=== PATIENT | male | born 1960 | race Caucasian/White ===

== ENCOUNTER 2020-06-07 08:06 | Outpatient (REF) | payer MEDICARE, MEDICAID, SELFPAY ==
[2020-06-07 12:19] LABS: Alanine Aminotransferase 25 U/L (0-40); Albumin Level 4.3 g/dL (3.5-5.0); Alkaline Phosphatase 77 U/L (39-117); Anion Gap 13 (12-20); Aspartate Amino Transferase 22 U/L (5-37); Bilirubin Total 0.3 mg/dL (0.0-1.0); Blood Urea Nitrogen 30 mg/dL (9-16); Calcium 9.1 mg/dL (8.4-10.2); Carbon Dioxide 29 mmol/L (22-29); Chloride 103 mmol/L (96-108); Cholesterol 169 mg/dL; Estimated Glomerular Filt Rate 54; Glucose Fasting 141 mg/dL (60-99); HDL Cholesterol 86 mg/dL; LDL Cholesterol Calculated 71 mg/dl; Potassium 4.9 mmol/l (3.3-5.1); Sodium 140 mmol/L (135-145); Thyroid Stimulating Hormone 1.61 mIU/mL (0.32-4.0); Total Protein 6.8 g/dL (6.5-8.0); Triglycerides 63 mg/dL
[2020-06-07 12:46] LABS: Creatinine Urine 109.01 mg/dL; Microalbum/Creatinine Ratio Ur 162.3 ug/mg cr
[2020-06-07 12:46] LABS: T4 Thyroxine 8.2 ug/dL (4.5-12.0)
[2020-06-07 12:59] LABS: Folate 17.7 ng/mL (> or = 4.0); Vitamin B12 495 pg/mL (200-900)
== END 2020-06-07 08:07 | disposition home or self-care (01) ==
LOC: HO.HMGCLDS 08:06
PROVIDERS: PCP Internal Medicine; Visit Provider Internal Medicine
DX: E11.65 Type 2 diabetes mellitus with hyperglycemia (principal); E11.40 Type 2 diabetes mellitus with diabetic neuropathy, unspecified; E11.22 Type 2 diabetes mellitus with diabetic chronic kidney disease; I12.9 Hypertensive chronic kidney disease with stage 1 through stage 4 chronic kidney disease, or unspecified chronic kidney disease; N18.30 Chronic kidney disease, stage 3 unspecified; I25.10 Atherosclerotic heart disease of native coronary artery without angina pectoris; J44.9 Chronic obstructive pulmonary disease, unspecified; E78.00 Pure hypercholesterolemia, unspecified
CPT/HCPCS: 36415; 80053; 80061; 82043; 82607; 82746; 84436; 84443

== ENCOUNTER 2020-08-04 06:30 | Day surgery (SDC) | payer MEDICARE, MEDICAID, SELFPAY ==
--- NOTE | 2020-08-03 09:40 | HO.ANESPROP2 ---
Documented by User: Melinda Leach 08/03/20 11:11 HPI - Anesthesia Eval Consult details Narrative: 60yo M for Colonoscopy PMFSH Past Medical History Medical History Ankle fracture Carpal tunnel syndrome Cholelithiasis Chronic kidney disease (CKD) stage G2/A3, mildly decreased glomerular filtration rate (GFR) between 60-89 mL/min/1.73 square meter and albuminuria creatinine ratio greater than 300 mg/g COPD (chronic obstructive pulmonary disease) Coronary artery disease Diabetes mellitus type 1 Diabetic neuropathy Eczema Hx of fracture of femur Hypercholesterolemia Hypertension Family History Family History Father Hypertension Stroke CVD (cerebrovascular disease) Mother Hypertension CVD (cerebrovascular disease) Diabetes Sister HX: breast cancer Paternal Grandfather Colon cancer Surgical History Surgical History H/O umbilical hernia repair History of carpal tunnel release History of cholecystectomy History of elbow surgery Hx of appendectomy Hx of colonoscopy Hx of eye surgery Social History Social History Alcohol intake: former Smoking Status: Former smoker Second Hand Smoke Exposure: No Use of substances other than those prescribed or required for medical reasons: No Substance Use Type: Marijuana Advance Directives: No Advance Directives Information Provided: Yes Advance Directives on File: No Meds Allergies Allergy/AdvReac Type Severity Reaction Status Date / Time No Known Allergies Allergy Unverified 07/31/20 17:53 Home Medications Medication Instructions Recorded Confirmed Type albuterol sulfate 90 mcg/actuation 2 puff INHALATION Q4-6H PRN 06/14/20 07/27/20 History aerosol inhaler aspirin 81 mg tablet,delayed 81 mg PO DAILY 06/14/20 07/27/20 History release carbamazepine 200 mg tablet 200 mg PO DAILY tab 06/14/20 07/27/20 History gabapentin 100 mg capsule 100 mg PO DAILY 06/14/20 07/27/20 History metoclopramide HCl 10 mg tablet 10 mg PO Q6H PRN 06/14/20 07/27/20 History rosuvastatin 40 mg tablet 40 mg PO DAILY 06/14/20 07/27/20 History sildenafil 100 mg tablet 100 mg PO DAILY PRN 06/14/20 07/27/20 History tiotropium bromide 2.5 2 puff INHALATION DAILY 06/14/20 07/27/20 History mcg/actuation mist for inhalation docusate sodium 100 mg PO DAILY PRN 07/27/20 07/27/20 History fluticasone furoate-vilanterol INHALATION 07/27/20 07/27/20 History [Alana Solista] Exam Exam Date and Time: August 03, 2020 0940 Pertinent Lab Results Pertinent Lab Results: Laboratory Tests 01/27/20 06/07/20 07:44 08:20 WBC 7.3 Hgb 15.2 Hct 45.1 Plt Count 233 Sodium 140 Potassium 4.9 Chloride 103 Carbon Dioxide 29 BUN 30 H Creatinine 1.34 Assessment and Plan Assessment Anesthesia Assessment: Chart Reviewed Documented by User: Torsten Bauer 08/04/20 07:37 REPLACED BY [facility] Past Medical History Medical History Ankle fracture Carpal tunnel syndrome Cholelithiasis Chronic kidney disease (CKD) stage G2/A3, mildly decreased glomerular filtration rate (GFR) between 60-89 mL/min/1.73 square meter and albuminuria creatinine ratio greater than 300 mg/g COPD (chronic obstructive pulmonary disease) Coronary artery disease Diabetes mellitus type 1 Diabetic neuropathy Eczema Hx of fracture of femur Hypercholesterolemia Hypertension Family History Family History Father Hypertension Stroke CVD (cerebrovascular disease) Mother Hypertension CVD (cerebrovascular disease) Diabetes Sister HX: breast cancer Paternal Grandfather Colon cancer Surgical History Surgical History H/O umbilical hernia repair History of carpal tunnel release History of cholecystectomy History of elbow surgery Hx of appendectomy Hx of colonoscopy Hx of eye surgery Social History Social History Alcohol intake: former Smoking Status: Former smoker Second Hand Smoke Exposure: No Use of substances other than those prescribed or required for medical reasons: No Substance Use Type: Marijuana Advance Directives: No Advance Directives Information Provided: Yes Advance Directives on File: No Meds Allergies Allergy/AdvReac Type Severity Reaction Status Date / Time No Known Allergies Allergy Unverified 07/31/20 17:53 Home Medications Medication Instructions Recorded Confirmed Type albuterol sulfate 90 mcg/actuation 2 puff INHALATION Q4-6H PRN 06/14/20 07/27/20 History aerosol inhaler aspirin 81 mg tablet,delayed 81 mg PO DAILY 06/14/20 07/27/20 History release carbamazepine 200 mg tablet 200 mg PO DAILY tab 06/14/20 07/27/20 History gabapentin 100 mg capsule 100 mg PO DAILY 06/14/20 07/27/20 History metoclopramide HCl 10 mg tablet 10 mg PO Q6H PRN 06/14/20 07/27/20 History rosuvastatin 40 mg tablet 40 mg PO DAILY 06/14/20 07/27/20 History sildenafil 100 mg tablet 100 mg PO DAILY PRN 06/14/20 07/27/20 History tiotropium bromide 2.5 2 puff INHALATION DAILY 06/14/20 07/27/20 History mcg/actuation mist for inhalation docusate sodium 100 mg PO DAILY PRN 07/27/20 07/27/20 History fluticasone furoate-vilanterol INHALATION 07/27/20 07/27/20 History [Breo Ellipta] Exam Airway Mallampati Class: II TM Dist: >3cm Neck ROM: Full Loose/Missing/Broken Teeth: No Heart: [id number] Lungs: cta b/l Assessment and Plan Assessment Anesthesia Assessment: Anesthesia Plan Discussed, PAT Visit and Chart Reviewed Final Anesthetic Review NPO: Yes ASA Class: III Final Preanesthetic Review: No Changes in Pt Med Stat, Meds/Allgs Chart Reviewed, Consent Obtained/Reviewed and Anes Risks/Benef Reviewed Patient Risk: Intermediate Procedure Risk: Low Assessment/Block/Sedation in SS: Assess/Block/Sedation-SS Anesthetic Plan Anesthetic Plan: MAC: Disposition: Standard PACU
[2020-08-03 10:00] VITALS: BMI 23.2
[2020-08-04 07:05] LABS: Glucose, Whole Blood 153 mg/dL (60-115)
[2020-08-04] MEDS: Lactated Ringers 1,000 ML 100 ML IVCONT (07:08)
[2020-08-04 08:27] VITALS: BP 115/54; PULSE 85; RESP 12; TEMP 36.5; O2SAT 99
--- NOTE | 2020-08-04 08:31 | PM.OP ---
Brief Operative Note Date of Service: 08/04/20 Pre-op diagnosis: Screening Post-op diagnosis: other (Screening) Procedure: Diverticulosis, Internal hemorrhoids Surgeon: Dylan Devries Anesthesia: MAC Estimated blood loss (mL): 0 Pathology: none sent Condition: stable Disposition: PACU
[2020-08-04 08:42] VITALS: BP 115/55; PULSE 76; RESP 16; TEMP 36.5; O2SAT 98
--- NOTE | 2020-08-04 08:45 | OP_ITS ---
SURGEON: Dylan Devries MD INDICATIONS: The patient presents for evaluation of colorectal cancer screening. Full consent has been obtained from him for this, including risks of bleeding and perforation. PREOPERATIVE DIAGNOSIS: Colorectal cancer screening. POSTOPERATIVE DIAGNOSIS: PROCEDURE PERFORMED: Colonoscopy to the cecum. ESTIMATED BLOOD LOSS: COMPLICATIONS: ANESTHESIA: Monitored anesthesia care. ASSISTANTS: SPECIMENS: POSTOPERATIVE DIAGNOSES: Colorectal cancer screening, sigmoid diverticulosis and internal hemorrhoids. DESCRIPTION OF PROCEDURE: The patient was placed in the left lateral decubitus position. The digital rectal exam revealed no abnormalities. The Olympus video pediatric colonoscope was entered into the rectum and advanced easily to the cecum. Once in the cecum, I did identify normal-appearing cecal pouch with appendiceal orifice and a normal-appearing ileocecal valve. The entire cecum was well visualized and appeared normal. There was transillumination of light deep in the right lower quadrant. The scope was slowly withdrawn assessing all mucosal surfaces carefully. Preparation was excellent throughout most of the colon, although in the sigmoid colon, there was some residual stool, which was irrigated and suctioned away as best as possible. I did not visualize any sign of polyps, colitis, nor angiodysplasia. There was a mild amount of sigmoid diverticulosis. In the rectum, scope was retroflexed visualizing prominent internal hemorrhoids, but no other pathology. The rectal mucosa appeared normal. The scope was straightened out and withdrawn from the patient. He tolerated the procedure well and was returned to the recovery area in stable condition. IMPRESSION: 1. Sigmoid diverticulosis. 2. Internal hemorrhoids. PLAN: Given the patient's negative colonoscopy and no family history of colon cancer, I would recommend a followup colonoscopy in 10 years for further screening. He will otherwise see me on a p.r.n. basis. MD ROBBI Braswell/HALIMA / [id number]
== END 2020-08-04 09:24 | disposition home or self-care (01) ==
PROVIDERS: PCP Internal Medicine; Visit Provider Internal Medicine
PROC: 0DJD8ZZ Inspection of Lower Intestinal Tract, Via Natural or Artificial Opening Endoscopic (ICD-10-PCS; CPT 45378; principal; 2020-08-04 07:30)
DX: Z12.11 Encounter for screening for malignant neoplasm of colon (principal); K57.30 Diverticulosis of large intestine without perforation or abscess without bleeding; K64.8 Other hemorrhoids; E10.22 Type 1 diabetes mellitus with diabetic chronic kidney disease; E10.40 Type 1 diabetes mellitus with diabetic neuropathy, unspecified; I12.9 Hypertensive chronic kidney disease with stage 1 through stage 4 chronic kidney disease, or unspecified chronic kidney disease; N18.2 Chronic kidney disease, stage 2 (mild); Z90.49 Acquired absence of other specified parts of digestive tract; Z87.891 Personal history of nicotine dependence; J44.9 Chronic obstructive pulmonary disease, unspecified; Z79.4 Long term (current) use of insulin; Z96.41 Presence of insulin pump (external) (internal)
CPT/HCPCS: G0121; 82947

== ENCOUNTER → 2020-08-17 09:39 | Outpatient (BNVA) | payer MEDICARE, MEDICAID, SELFPAY | PROVIDERS: PCP Internal Medicine; Visit Provider Internal Medicine | DX: J43.9 Emphysema, unspecified (principal) | CPT/HCPCS: 99212 ==

== ENCOUNTER 2020-09-15 11:34 | Outpatient (REF) | payer MEDICARE, MEDICAID, SELFPAY ==
[2020-09-15 14:19] LABS: Estimated Average Glucose 171 mg/dL; Hemoglobin A1c % 7.6 %
== END 2020-09-15 11:35 | disposition home or self-care (01) ==
LOC: HO.HMGCLR 11:34
PROVIDERS: PCP Internal Medicine; Visit Provider Pediatrics
DX: E10.65 Type 1 diabetes mellitus with hyperglycemia (principal)
CPT/HCPCS: 36415; 83036

== ENCOUNTER 2020-12-14 10:44 | Outpatient (REF) | payer MEDICARE, MEDICAID, SELFPAY ==
[2020-12-14 12:51] LABS: Estimated Average Glucose 160 mg/dL; Hemoglobin A1c % 7.2 %
== END 2020-12-14 10:45 | disposition home or self-care (01) ==
LOC: HO.LABR 10:44
PROVIDERS: Absent Provider Pediatrics; PCP Internal Medicine; Visit Provider Internal Medicine
DX: E10.65 Type 1 diabetes mellitus with hyperglycemia (principal); J43.9 Emphysema, unspecified; Z79.899 Other long term (current) drug therapy
CPT/HCPCS: 36415; 83036; 99212

== ENCOUNTER 2020-12-31 11:17 | Outpatient (REF) | payer MEDICARE, MEDICAID, SELFPAY ==
--- NOTE | ~2020-12-31 | US_ITS ---
EXAMINATION: US PELVIS LIMITED (BLADDER) CLINICAL INFORMATION: Urinary incontinence. COMPARISON: None TECHNIQUE: Real-time imaging of the bladder. FINDINGS: BLADDER: Well distended and normal. Bilateral ureteral jets are demonstrated. Prevoid bladder volume is 400 mL. Postvoid bladder volume is 170 mL. The prostate gland is enlarged and measures 4.8 x 3.8 x 4.1 cm, volume 39 mL. There is a heterogeneous partially solid partially cystic area in the prostate gland measuring 2.4 x 2.5 x 2.9 cm. US/US bladder IMPRESSION: Large 170 mL post void bladder residual. Enlarged prostate gland with question focal 2.4 x 2.5 x 2.9 cm heterogeneous lesion. Correlation with PSA level recommended.
== END 2020-12-31 11:18 | disposition home or self-care (01) ==
LOC: HO.HMGCX 11:17
PROVIDERS: Visit Provider Internal Medicine
DX: N40.1 Benign prostatic hyperplasia with lower urinary tract symptoms (principal); N39.498 Other specified urinary incontinence
CPT/HCPCS: 76857

== ENCOUNTER → 2021-03-08 13:25 | Outpatient (BNVA) | payer MEDICARE, MEDICAID, SELFPAY | PROVIDERS: PCP Internal Medicine; Visit Provider Urology | DX: N40.0 Benign prostatic hyperplasia without lower urinary tract symptoms (principal); N52.9 Male erectile dysfunction, unspecified; R39.12 Poor urinary stream | CPT/HCPCS: 51798; 99202 ==

== ENCOUNTER 2021-03-14 08:18 | Outpatient (REF) | payer MEDICARE, MEDICAID, SELFPAY ==
[2021-03-14 09:04] LABS: MANUAL DIFF FLAG NO
[2021-03-14 09:11] LABS: Basophils Percent Auto 0.5 % (0-2); Eosinophils Absolute Auto 0.3 X10*3/uL (0.0-0.4); Eosinophils Percent Auto 3.8 % (0-4); Hematocrit 42.5 % (42-52); Hemoglobin 13.9 g/dl (14.0-18.0); Imm Gran Abs Auto 0.03 X10*3/uL (0.00-0.03); Imm Gran Pct Auto 0.4 % (0.0-0.4); Lymphocytes Absolute Auto 2.1 X10*3/uL (1.2-4.9); Lymphocytes Percent Auto 27.2 % (20-40); Mean Corpuscular HGB Conc 32.7 g/dl (31.0-36.0); Mean Corpuscular Hemoglobin 31.4 pg (27.0-33.0); Mean Corpuscular Volume 95.9 fL (80-98); Mean Platelet Volume 9.3 fL (9.4-12.4); Monocytes Absolute Auto 0.8 X10*3/uL (0.1-1.2); Monocytes Percent Auto 10.2 % (2-11); Neutrophils Absolute Auto 4.4 X10*3/uL (2.0-8.3); Neutrophils Percent Auto 57.9 % (45-73); Platelet Count 190 X10*3/uL (160-400); Red Blood Count 4.43 X10*6/uL (4.60-5.80); Red Cell Distribution Width 13.1 % (11.0-16.0); White Blood Count 7.7 X10*3/uL (4.8-10.8)
[2021-03-14 09:29] LABS: Estimated Average Glucose 174 mg/dL; Hemoglobin A1c % 7.7 %
[2021-03-14 09:35] LABS: Alanine Aminotransferase 21 U/L (0-40); Albumin Level 4.1 g/dL (3.5-5.0); Alkaline Phosphatase 72 U/L (39-117); Anion Gap 13 (12-20); Aspartate Amino Transferase 23 U/L (5-37); Bilirubin Total 0.4 mg/dL (0.0-1.0); Blood Urea Nitrogen 21 mg/dL (9-16); Calcium 9.3 mg/dL (8.4-10.2); Carbon Dioxide 29 mmol/L (22-29); Chloride 105 mmol/L (96-108); Cholesterol 153 mg/dL; Estimated Glomerular Filt Rate 57; Glucose Random 127 mg/dL (60-115); HDL Cholesterol 84 mg/dL; LDL Cholesterol Calculated 58 mg/dl; Potassium 4.8 mmol/L (3.3-5.1); Sodium 142 mmol/L (135-145); Total Protein 6.5 g/dL (6.5-8.0); Triglycerides 58 mg/dL
[2021-03-14 09:48] LABS: Free T4 (Free Thyroxine) 1.12 ng/dL (0.71-1.85); Thyroid Stimulating Hormone 0.92 uIU/mL (0.32-4.0)
[2021-03-14 10:15] LABS: Creatinine Urine 138.22 mg/dL; Microalbum/Creatinine Ratio Ur 133.1 ug/mg cr
[2021-03-14 10:25] LABS: Folate 16.7 ng/mL (> or = 4.0); Vitamin B12 499 pg/mL (200-900)
== END 2021-03-14 08:19 | disposition home or self-care (01) ==
LOC: HO.LAB 08:18
PROVIDERS: Absent Provider Pediatrics; PCP Internal Medicine; Visit Provider Internal Medicine
DX: E78.00 Pure hypercholesterolemia, unspecified (principal); I25.10 Atherosclerotic heart disease of native coronary artery without angina pectoris; E10.42 Type 1 diabetes mellitus with diabetic polyneuropathy; E10.65 Type 1 diabetes mellitus with hyperglycemia
CPT/HCPCS: 36415; 80053; 80061; 82043; 82607; 82746; 83036; 84439; 84443; 85025

== ENCOUNTER → 2021-04-21 14:58 | Outpatient (BNVA) | payer MEDICARE, MEDICAID, SELFPAY | PROVIDERS: PCP Internal Medicine; Visit Provider Urology | DX: N40.1 Benign prostatic hyperplasia with lower urinary tract symptoms (principal); R39.14 Feeling of incomplete bladder emptying; R39.12 Poor urinary stream; R33.8 Other retention of urine; E11.42 Type 2 diabetes mellitus with diabetic polyneuropathy | CPT/HCPCS: 52000; 99212 ==

== ENCOUNTER → 2021-05-19 10:52 | Outpatient (BNVA) | payer MEDICARE, MEDICAID, SELFPAY | PROVIDERS: PCP Internal Medicine; Visit Provider Urology | DX: N40.1 Benign prostatic hyperplasia with lower urinary tract symptoms (principal); R39.12 Poor urinary stream; R33.9 Retention of urine, unspecified | CPT/HCPCS: 51798; 99212 ==

== ENCOUNTER 2021-06-14 10:32 | Outpatient (REF) | payer MEDICARE, MEDICAID, SELFPAY ==
[2021-06-14 12:10] LABS: Estimated Average Glucose 163 mg/dL; Hemoglobin A1c % 7.3 %
== END 2021-06-14 10:33 | disposition home or self-care (01) ==
LOC: HO.LABR 10:32
PROVIDERS: Absent Provider Pediatrics; PCP Internal Medicine; Visit Provider Internal Medicine
DX: J43.9 Emphysema, unspecified (principal); E10.65 Type 1 diabetes mellitus with hyperglycemia; E10.42 Type 1 diabetes mellitus with diabetic polyneuropathy; Z79.899 Other long term (current) drug therapy
CPT/HCPCS: 36415; 83036; 99212

== ENCOUNTER 2021-07-19 11:54 | Outpatient (REF) | payer MEDICARE, MEDICAID, SELFPAY ==
[2021-07-19 12:18] LABS: MANUAL DIFF FLAG NO
[2021-07-19 13:13] LABS: Basophils Absolute Auto 0.1 X10*3/uL (0.0-0.2); Basophils Percent Auto 0.7 % (0-2); Eosinophils Absolute Auto 0.2 X10*3/uL (0.0-0.4); Eosinophils Percent Auto 2.7 % (0-4); Hematocrit 40.8 % (42.0-52.0); Hemoglobin 13.5 g/dl (14.0-18.0); Imm Gran Abs Auto 0.02 X10*3/uL (0.00-0.03); Imm Gran Pct Auto 0.3 % (0.0-0.4); Lymphocytes Absolute Auto 2.2 X10*3/uL (1.2-4.9); Lymphocytes Percent Auto 29.4 % (20-40); Mean Corpuscular HGB Conc 33.1 g/dl (31.0-36.0); Mean Corpuscular Hemoglobin 31.3 pg (27.0-33.0); Mean Corpuscular Volume 94.7 fL (80.0-98.0); Mean Platelet Volume 9.2 fL (9.4-12.4); Monocytes Absolute Auto 0.7 X10*3/uL (0.1-1.2); Monocytes Percent Auto 9.9 % (2-11); Neutrophils Absolute Auto 4.3 x10*3/uL (2.0-8.3); Platelet Count 233 X10*3/uL (160-400); Red Blood Count 4.31 X10*6/uL (4.60-5.80); Red Cell Distribution Width 12.9 % (11.0-16.0); White Blood Count 7.5 X10*3/uL (4.8-10.8)
[2021-07-19 13:37] LABS: Alanine Aminotransferase 25 U/L (0-40); Alkaline Phosphatase 73 U/L (39-117); Anion Gap 12 (12-20); Aspartate Amino Transferase 20 U/L (5-37); Bilirubin Total 0.2 mg/dL (0.0-1.0); Blood Urea Nitrogen 26 mg/dL (9-16); Calcium 9.1 mg/dL (8.4-10.2); Carbon Dioxide 30 mmol/L (22-29); Chloride 102 mmol/L (96-108); Cholesterol 151 mg/dL; Estimated Glomerular Filt Rate > 60; Glucose Fasting 98 mg/dL (60-99); HDL Cholesterol 79 mg/dL; LDL Cholesterol Calculated 63 mg/dl; Potassium 4.8 mmol/L (3.3-5.1); Sodium 139 mmol/L (135-145); Total Protein 6.5 g/dL (6.5-8.0); Triglycerides 48 mg/dL
[2021-07-19 13:58] LABS: Prostate Specific Antigen Scr 1.37 ng/mL (<0.05-4.0)
[2021-07-19 14:10] LABS: Creatinine Urine 52.08 mg/dL; Microalbum/Creatinine Ratio Ur 241.9 ug/mg cr
== END 2021-07-19 11:55 | disposition home or self-care (01) ==
LOC: HO.LAB 11:54
PROVIDERS: PCP Internal Medicine; Visit Provider Nurse Practitioner Family
DX: Z12.5 Encounter for screening for malignant neoplasm of prostate (principal); I12.9 Hypertensive chronic kidney disease with stage 1 through stage 4 chronic kidney disease, or unspecified chronic kidney disease; N18.2 Chronic kidney disease, stage 2 (mild); E10.22 Type 1 diabetes mellitus with diabetic chronic kidney disease; E78.00 Pure hypercholesterolemia, unspecified; N40.0 Benign prostatic hyperplasia without lower urinary tract symptoms
CPT/HCPCS: 36415; 80053; 80061; 82043; 84153; 85025

== ENCOUNTER 2021-07-21 14:01 | Outpatient (REF) | payer MEDICARE, MEDICAID, SELFPAY ==
--- NOTE | ~2021-07-21 | CT_ITS ---
EXAMINATION: CT ABDOMEN AND PELVIS WITH CONTRAST CLINICAL INFORMATION: Generalized abdominal pain COMPARISON: Bladder ultrasound December 2020 TECHNIQUE: Multidetector volumetric images were obtained from the superior aspect of the liver through the pubic symphysis following administration 85 mL of Omnipaque 350 intravenous contrast. Sagittal and coronal reformatted images were obtained on the technologist's workstation. Oral contrast: Yes This CT examination was performed using dose optimization techniques as appropriate, variously including the following: *Automated exposure control *Adjustment of mA and/or kV according to patient size (this includes techniques or standardized protocols for targeted exams where dose is matched to indication/reason for exam; i.e. extremities or head) *Use of iterative reconstruction technique DLP: 223 mGy-cm FINDINGS: LUNG BASES: The visualized lung bases are unremarkable. LIVER, GALLBLADDER, AND BILIARY TREE: The liver is normal in size, shape, and attenuation. No focal hepatic lesion or biliary ductal dilatation is present. The gallbladder has been removed. PANCREAS: Unremarkable. SPLEEN: Unremarkable. ADRENAL GLANDS: Unremarkable. KIDNEYS AND URETERS: There is cortical thinning or scarring of the lower pole of the left kidney. There are multiple bilateral renal cysts. Largest measures 1.6 cm in the lower pole of the left kidney. There is a 5 mm stone in the lower pole of the right kidney. There is additional small 1 to 2 mm bilateral renal stones. There is evidence of renal vascular calcification. BLADDER: Unremarkable. GASTROINTESTINAL TRACT: There is evidence of constipation. The small and large bowel are otherwise unremarkable. The appendix is is not identified. ABDOMINAL WALL: No significant hernia is appreciated. LYMPH NODES: Normal. VASCULAR: There is evidence of atherosclerotic disease. PELVIC VISCERA: The prostate gland is enlarged and measures 3.8 x 4.6 cm in AP and transverse dimension. OSSEOUS STRUCTURES: There are degenerative changes of the spine. CT/CT abdomen pelvis w con IMPRESSION: Constipation. Renal stones. Cortical thinning or scarring in the lower pole the left kidney. Bilateral renal cysts. Enlarged prostate gland. Severe atherosclerotic disease. Fleischner guidelines were followed.
[2021-07-21] MEDS: iohexoL 350 MG/ML 100 ML INFUS..BTL IV (16:01)
[2021-07-21] MEDS: Barium Sulfate Oral (Vanilla) 450 ML ORAL.SUSP 900 ML PO (16:02)
== END 2021-07-21 14:02 | disposition home or self-care (01) ==
LOC: HO.CT 14:01
PROVIDERS: PCP Internal Medicine; Visit Provider Nurse Practitioner Family
DX: R10.84 Generalized abdominal pain (principal); R19.7 Diarrhea, unspecified; K59.00 Constipation, unspecified
CPT/HCPCS: 74177; Q9967

== ENCOUNTER 2021-08-10 11:45 | Outpatient (REF) | payer MEDICARE, MEDICAID, SELFPAY ==
[2021-08-10 13:52] LABS: MANUAL DIFF FLAG NO
[2021-08-10 13:55] LABS: Basophils Percent Auto 0.5 % (0-2); Eosinophils Absolute Auto 0.3 X10*3/uL (0.0-0.4); Hematocrit 42.2 % (42.0-52.0); Hemoglobin 13.7 g/dl (14.0-18.0); Imm Gran Abs Auto 0.02 X10*3/uL (0.00-0.03); Imm Gran Pct Auto 0.3 % (0.0-0.4); Lymphocytes Absolute Auto 2.4 X10*3/uL (1.2-4.9); Lymphocytes Percent Auto 30.3 % (20-40); Mean Corpuscular HGB Conc 32.5 g/dl (31.0-36.0); Mean Corpuscular Hemoglobin 31.4 pg (27.0-33.0); Mean Corpuscular Volume 96.8 fL (80.0-98.0); Mean Platelet Volume 9.7 fL (9.4-12.4); Monocytes Absolute Auto 0.7 X10*3/uL (0.1-1.2); Monocytes Percent Auto 9.1 % (2-11); Neutrophils Absolute Auto 4.4 x10*3/uL (2.0-8.3); Neutrophils Percent Auto 55.8 % (45-73); Platelet Count 218 X10*3/uL (160-400); Red Blood Count 4.36 X10*6/uL (4.60-5.80); Red Cell Distribution Width 13.2 % (11.0-16.0); White Blood Count 7.8 X10*3/uL (4.8-10.8)
[2021-08-10 13:56] LABS: Appearance Urine CLEAR; Color Urine YELLOW; Glucose Urine UA NEG (NEG); Leukocyte Esterase Urine NEG (NEG); Nitrite Urine NEG (NEG); PH 6.5 (5.0-8.0); Specific Gravity - Urine 1.015 (1.005-1.025); Urine Blood TRACE (NEG); Urine Ketones NEG (NEG); Urine Protein 1+ MG/DL (NEG-TRACE)
[2021-08-10 14:05] LABS: WBC Urine 0 /HPF (0-4)
[2021-08-10 14:17] LABS: Alanine Aminotransferase 19 U/L (0-40); Albumin Level 4.1 g/dL (3.5-5.0); Alkaline Phosphatase 73 U/L (39-117); Anion Gap 13 (12-20); Aspartate Amino Transferase 20 U/L (5-37); Bilirubin Total 0.3 mg/dL (0.0-1.0); Blood Urea Nitrogen 25 mg/dL (9-16); Calcium 9.5 mg/dL (8.4-10.2); Carbon Dioxide 30 mmol/L (22-29); Chloride 103 mmol/L (96-108); Estimated Glomerular Filt Rate > 60; Glucose Random 112 mg/dL (60-115); Phosphorus 3.9 mg/dL (2.7-4.5); Potassium 4.8 mmol/L (3.3-5.1); Sodium 141 mmol/L (135-145); Total Protein 6.7 g/dL (6.5-8.0); Uric Acid 3.8 mg/dL (3.4-7.0)
[2021-08-10 14:29] LABS: Creatinine Urine 76.92 mg/dL
[2021-08-10 14:38] LABS: Vitamin D 25-OH Total 25.4 ng/mL (>30)
== END 2021-08-10 11:46 | disposition home or self-care (01) ==
LOC: HO.HMGCLDS 11:45
PROVIDERS: PCP Internal Medicine; Visit Provider Internal Medicine
DX: I12.9 Hypertensive chronic kidney disease with stage 1 through stage 4 chronic kidney disease, or unspecified chronic kidney disease (principal); N18.2 Chronic kidney disease, stage 2 (mild)
CPT/HCPCS: 36415; 80053; 81001; 82043; 82306; 84100; 84550; 85025

== ENCOUNTER → 2021-11-17 09:57 | Outpatient (BNVA) | payer MEDICARE, MEDICAID, SELFPAY | PROVIDERS: PCP Internal Medicine; Visit Provider Urology | DX: N40.1 Benign prostatic hyperplasia with lower urinary tract symptoms (principal); N20.0 Calculus of kidney; R39.12 Poor urinary stream | CPT/HCPCS: 51798; 99212 ==

== ENCOUNTER → 2021-12-06 14:14 | Outpatient (BNVA) | payer MEDICARE, MEDICAID, SELFPAY | PROVIDERS: PCP Internal Medicine; Visit Provider Internal Medicine | DX: J44.1 Chronic obstructive pulmonary disease with (acute) exacerbation (principal) | CPT/HCPCS: 99212 ==

== ENCOUNTER → 2022-05-26 10:54 | Outpatient (BNVA) | payer MEDICARE, MEDICAID, SELFPAY | PROVIDERS: PCP Internal Medicine; Visit Provider Urology | DX: R35.0 Frequency of micturition (principal) | CPT/HCPCS: 51798; 99212 ==

== ENCOUNTER → 2022-06-08 13:43 | Outpatient (BNVA) | payer MEDICARE, MEDICAID, SELFPAY | PROVIDERS: PCP Internal Medicine; Visit Provider Internal Medicine | DX: J43.9 Emphysema, unspecified (principal) | CPT/HCPCS: 99212 ==

== ENCOUNTER → 2022-08-08 12:30 | Outpatient (BNVA) | payer MEDICARE, MEDICAID, SELFPAY | PROVIDERS: PCP Internal Medicine; Visit Provider Urology | DX: N32.81 Overactive bladder (principal); N40.1 Benign prostatic hyperplasia with lower urinary tract symptoms; R33.8 Other retention of urine; R35.0 Frequency of micturition; R39.12 Poor urinary stream; N52.9 Male erectile dysfunction, unspecified; E10.42 Type 1 diabetes mellitus with diabetic polyneuropathy; Z79.899 Other long term (current) drug therapy | CPT/HCPCS: Q3014 ==

== ENCOUNTER 2022-10-09 08:02 | Outpatient (REF) | payer MEDICARE, MEDICAID, SELFPAY ==
[2022-10-09 11:18] LABS: MANUAL DIFF FLAG NO
[2022-10-09 11:42] LABS: Basophils Percent Auto 0.5 % (0-2); Eosinophils Absolute Auto 0.3 X10*3/uL (0.0-0.4); Eosinophils Percent Auto 3.7 % (0-4); Hematocrit 41.7 % (42.0-52.0); Hemoglobin 13.9 g/dl (14.0-18.0); Imm Gran Abs Auto 0.02 X10*3/uL (0.00-0.03); Imm Gran Pct Auto 0.3 % (0.0-0.4); Lymphocytes Absolute Auto 2.8 X10*3/uL (1.2-4.9); Lymphocytes Percent Auto 37.3 % (20-40); Mean Corpuscular HGB Conc 33.3 g/dl (31.0-36.0); Mean Corpuscular Hemoglobin 31.5 pg (27.0-33.0); Mean Corpuscular Volume 94.6 fL (80.0-98.0); Mean Platelet Volume 9.6 fL (9.4-12.4); Monocytes Absolute Auto 0.8 X10*3/uL (0.1-1.2); Monocytes Percent Auto 11.1 % (2-11); Neutrophils Absolute Auto 3.5 x10*3/uL (2.0-8.3); Neutrophils Percent Auto 47.1 % (45-73); Platelet Count 233 X10*3/uL (160-400); Red Blood Count 4.41 X10*6/uL (4.60-5.80); Red Cell Distribution Width 12.8 % (11.0-16.0); White Blood Count 7.5 X10*3/uL (4.8-10.8)
[2022-10-09 12:06] LABS: Estimated Average Glucose 174 mg/dL; Hemoglobin A1c % 7.7 %
[2022-10-09 12:11] LABS: Alanine Aminotransferase 19 U/L (0-40); Albumin Level 3.9 g/dL (3.5-5.0); Alkaline Phosphatase 64 U/L (39-117); Anion Gap 11 (12-20); Aspartate Amino Transferase 20 U/L (5-37); Bilirubin Total 0.4 mg/dL (0.0-1.0); Blood Urea Nitrogen 34 mg/dL (9-16); Calcium 8.9 mg/dL (8.4-10.2); Carbon Dioxide 27 mmol/L (22-29); Chloride 106 mmol/L (96-108); Cholesterol 160 mg/dL; Estimated Glomerular Filt Rate 50; Glucose Random 135 mg/dL (60-115); HDL Cholesterol 85 mg/dL; LDL Cholesterol Calculated 68 mg/dl; Potassium 4.5 mmol/L (3.3-5.1); Sodium 139 mmol/L (135-145); Total Protein 6.3 g/dL (6.5-8.0); Triglycerides 35 mg/dL
[2022-10-09 12:22] LABS: Creatinine Urine 109.78 mg/dL; Microalbum/Creatinine Ratio Ur 88.3 ug/mg cr
[2022-10-09 12:43] LABS: Folate 14.3 ng/mL (> or = 4.0); Free T4 (Free Thyroxine) 1.01 ng/dL (0.71-1.85); Prostate Specific Antigen Scr 1.29 ng/mL (<0.05-4.0); Thyroid Stimulating Hormone 1.48 uIU/mL (0.32-4.0); Vitamin B12 480 pg/mL (200-900)
== END 2022-10-09 08:03 | disposition home or self-care (01) ==
LOC: HO.HMGCLDS 08:02
PROVIDERS: PCP Internal Medicine; Visit Provider Internal Medicine
DX: Z12.5 Encounter for screening for malignant neoplasm of prostate (principal); E10.22 Type 1 diabetes mellitus with diabetic chronic kidney disease; E10.42 Type 1 diabetes mellitus with diabetic polyneuropathy; E10.65 Type 1 diabetes mellitus with hyperglycemia; N18.9 Chronic kidney disease, unspecified; N40.1 Benign prostatic hyperplasia with lower urinary tract symptoms; R39.12 Poor urinary stream; E78.00 Pure hypercholesterolemia, unspecified
CPT/HCPCS: 36415; 80053; 80061; 82043; 82607; 82746; 83036; 84153; 84439; 84443; 85025

== ENCOUNTER 2022-11-27 12:47 | Outpatient (REF) | payer MEDICARE, MEDICAID, SELFPAY ==
--- NOTE | ~2022-11-27 | XR_ITS ---
EXAMINATION: XR CHEST CLINICAL INFORMATION: COPD COMPARISON: Chest 08/25/2019 TECHNIQUE: 2 views of the chest were obtained. FINDINGS: The lungs are expanded with mild blunting of right CP angle. Rest lungs are clear. The heart size and pulmonary vascularity is normal. No gross bony or the malleus seen. XR/XR chest 2V IMPRESSION: Mild blunting of right CP angle from pleural effusion thickening. No acute process seen.
== END 2022-11-27 12:48 | disposition home or self-care (01) ==
LOC: HO.HMGCX 12:47
PROVIDERS: PCP Internal Medicine; Visit Provider Internal Medicine
DX: J44.1 Chronic obstructive pulmonary disease with (acute) exacerbation (principal)
CPT/HCPCS: 71046

== ENCOUNTER → 2022-12-05 13:34 | Outpatient (BNVA) | payer MEDICARE, MEDICAID, SELFPAY | PROVIDERS: PCP Internal Medicine; Visit Provider Internal Medicine | DX: J43.9 Emphysema, unspecified (principal) | CPT/HCPCS: 99212 ==

== ENCOUNTER → 2022-12-21 14:08 | Outpatient (BNVA) | payer MEDICARE, MEDICAID, SELFPAY | PROVIDERS: PCP Internal Medicine; Visit Provider Internal Medicine | DX: J43.9 Emphysema, unspecified (principal) | CPT/HCPCS: 99212 ==

== ENCOUNTER → 2023-03-02 14:46 | Outpatient (BNVA) | payer MEDICARE, MEDICAID, SELFPAY | PROVIDERS: Visit Provider Nurse Practitioner Family | DX: N40.1 Benign prostatic hyperplasia with lower urinary tract symptoms (principal); N13.8 Other obstructive and reflux uropathy; R33.8 Other retention of urine; R35.0 Frequency of micturition; R39.12 Poor urinary stream; R32 Unspecified urinary incontinence; N20.0 Calculus of kidney; E10.22 Type 1 diabetes mellitus with diabetic chronic kidney disease; N52.1 Erectile dysfunction due to diseases classified elsewhere; E10.65 Type 1 diabetes mellitus with hyperglycemia; I12.9 Hypertensive chronic kidney disease with stage 1 through stage 4 chronic kidney disease, or unspecified chronic kidney disease; N18.9 Chronic kidney disease, unspecified; Z79.82 Long term (current) use of aspirin; Z79.4 Long term (current) use of insulin; Z79.899 Other long term (current) drug therapy | CPT/HCPCS: 51798; 99212 ==

== ENCOUNTER 2023-04-17 14:03 | Outpatient (AMB) | payer MEDICARE, MEDICAID, SELFPAY ==
[2023-04-17 14:12] VITALS: BP 120/62; PULSE 68; O2SAT 97; BMI 22.3
--- NOTE | 2023-04-17 14:12 | A.OFFVIS_ITS ---
Intake Vital Signs 04/17/23 14:12 Height 5 ft 3 in Weight 126 lb BMI 22.3 BP 120/62 Blood Pressure Location Lt brachial Position Sitting Pulse 68 Pulse Source Pulse Oximeter Pulse Oximetry (%) 97 Oxygen Delivery Method Room Air Intake Visit Reasons: Cough Intake Note: pt is here for follow up and states he is feeling at his baseline. Instructor Psychiatric Aide Required: No Allergies adalimumab [From Humira] Adverse Reaction (Verified 04/17/23 14:22) sleepy pregabalin [From Lyrica] Adverse Reaction (Verified 04/17/23 14:22) Dizzyness Medication List - Last Reconciled 04/17/23 by Mele Emerson MD albuterol sulfate 90 mcg/actuation 2 puffs PO Q4-6H PRN aspirin (Adult Aspirin Regimen) 81 mg PO DAILY PRN bethanechol chloride 50 mg PO BID 90 days Breo Ellipta 100-25 mcg/dose (fluticasone furoate-vilanterol) 1 ea PO DAILY NS carbamazepine ER 200 mg PO BEDTIME docusate sodium 100 mg PO DAILY PRN gabapentin 100 mg PO BID PRN glucagon 3 mg/actuation (Baqsimi) mg intranasal guaifenesin ER (Mucinex) 1,200 mg PO BID 15 days hydrocodone-acetaminophen 5-325 mg 1 tab PO DAILY PRN 30 days insulin aspart U-100 70 units subcut DAILY insulin lispro (Humalog U-100 Insulin) 1 sliding scale dose subcut USEASDIRECTD ipratropium-albuterol 0.5 mg-3 mg(2.5 mg base)/3 mL 3 mL inhalation Q6-8H PRN 30 days lactulose 0.5 grams PO DAILY PRN lisinopril 40 mg PO DAILY metoclopramide HCl (Reglan) 10 mg PO Q6H PRN mirabegron ER (Myrbetriq) 25 mg PO DAILY 90 days rosuvastatin 40 mg PO DAILY sildenafil (Viagra) 100 mg PO DAILY PRN simethicone (Gas Relief (simethicone)) 125 mg PO BEDTIME Spiriva with HandiHaler (tiotropium bromide) 1 cap inhalation DAILY NS tamsulosin 0.4 mg PO DAILY 90 days Do you need a note to return to daycare/school/sports/work: No HPI Cough HPI Details GAVIOTA is 62 years old gentleman a case of severe obstructive pulmonary disorder, who is here for his routine follow-up after 6 month. He has basically remained stable without any acute exacerbation in the last 4 months, he does have mild intermittent cough and sometime feels as if he has hard time in expectorating mucus . He remains mostly in the house, as he tends to lose his balance if he walks fast. Luckily he has had no acute infection or acute exacerbation in the last 4 months [facility] Medical History Ankle fracture Carpal tunnel syndrome Cholelithiasis Chronic kidney disease (CKD) stage G2/A3, mildly decreased glomerular filtration rate (GFR) between 60-89 mL/min/1.73 square meter and albuminuria creatinine ratio greater than 300 mg/g COPD (chronic obstructive pulmonary disease) COPD exacerbation Coronary artery disease Diabetes mellitus type 1 Diabetic neuropathy Eczema Hx of fracture of femur Hypercholesterolemia Hypertension Surgical History H/O umbilical hernia repair History of carpal tunnel release History of cholecystectomy History of elbow surgery Hx of appendectomy Hx of colonoscopy Hx of eye surgery Family History Father Hypertension Stroke CVD (cerebrovascular disease) Mother Hypertension CVD (cerebrovascular disease) Diabetes Sister HX: breast cancer Paternal Grandfather Colon cancer Social History Housing: House Alcohol intake: former Patient Tobacco Use Status: Former Tobacco user Tobacco use type: Cigarette e-Cigarette/Vaping Use: Never Used Second Hand Smoke Exposure: No Substance Use Type: Marijuana service: No Current occupational status: disabled Cognitive needs: No Hearing needs: No Vision needs: Yes Review of Systems Const All systems reviewed & are unremarkable except as noted in HPI and below Eyes Reports no additional complaints ENT Reports nasal congestion (Only mild, off and on) Card Denies irregular heart rhythm and Denies leg edema Resp Reports as per HPI GI Reports dyspepsia (Mild) Reports erectile dysfunction and Reports urinary hesitancy Musc Reports back pain (Mild) Skin/Breast Reports system reviewed and no additional complaints, except as documented Neuro Reports no additional complaints Psych Reports no additional complaints Physical Exam Vital Signs: Last Vital Signs Pulse 68 04/17/23 14:12 BP 120/62 04/17/23 14:12 Pulse Ox 97 04/17/23 14:12 Oxygen Delivery Method Room Air 04/17/23 14:12 BMI result Body Mass Index 22.3 Const General: comfortable (BUT HAS FREQUENT COUGH), no acute distress, alert and awake Orientation/consciousness: patient oriented x3 HEENT Head: Yes normal to inspection General nose exam: No nasal polyps present and No nasal discharge present Face and sinus: Yes sinuses nontender Mouth: oropharynx normal Throat: Yes posterior oropharynx normal Eyes General: appearance normal, both eyes and all related structures Neck Neck: Yes normal visual inspection, Yes no lymphadenopathy, Yes trachea midline and Yes no JVD Thyroid: Thyroid normal Chest Chest palpation & inspection: normal inspection of the chest, normal palpation of entire chest wall and no tenderness Resp Other: Percussion note hyper-resonant, Breath sounds are distant with prolonged expiratory phase. No wheezes or rhonchi are heard. Cardio Palpation: normal PMI Rate: regular rate Rhythm: regular rhythm Heart sounds: no gallops and no murmurs GI Palpation (GI): Soft to palpation, nontender, No hepatosplenomegaly present and no masses Auscultation: normal bowel sounds Back/Spine/Pelvis Thoracic/Lumbar Spine: thoracic and lumbar spine normal to inspection Skin General skin exam: no rashes or lesions noted Neuro General: patient oriented x3 and no focal motor deficits Cranial nerves: Yes CN's II-XII intact bilaterally Extrem General: Yes normal to inspection, Yes no clubbing, cyanosis or edema and Yes no calf tenderness Psych Appearance: grossly normal and well kempt Speech and movement: Normal speech and movement present Assessment & Plan Assessment & Plan (1) COPD (chronic obstructive pulmonary disease): Comment: HE IS A KNOWN CASE OF SEVERE COPD. [place] : SPIRIVA HANDIHALER ONE INH DAILY BREO 100 -25 ONE INH DAILY MUCINEX 1200 MG B.I.D. PRN ADVISED TO DRINK PLENTY OF FLUIDS. IPRATROPIUM/ALBUTEROL SOLUTION IN THE NEBULIZER Q 6 HOURS P.R.N. Code(s): J44.9 - Chronic obstructive pulmonary disease, unspecified Qualifiers: COPD type: emphysema Emphysema type: unspecified Qualified Code(s): J43.9 - Emphysema, unspecified Coding Level of Care Code Est Pt Level 3 (25801) Diagnoses COPD (chronic obstructive pulmonary disease) J43.9 COPD type: emphysema Emphysema type: unspecified
== END 2023-04-17 14:30 | disposition home or self-care (01) ==
PROVIDERS: PCP Internal Medicine; Visit Provider Internal Medicine
DX: J43.9 Emphysema, unspecified (principal)
CPT/HCPCS: 99213

== ENCOUNTER → 2023-04-17 14:03 | Outpatient (BNVA) | payer MEDICARE, MEDICAID, SELFPAY | PROVIDERS: PCP Internal Medicine; Visit Provider Internal Medicine | DX: J43.9 Emphysema, unspecified (principal) | CPT/HCPCS: 99212 ==

== ENCOUNTER 2023-05-15 13:40 | Outpatient (AMB) | payer MEDICARE, MEDICAID, SELFPAY ==
[2023-05-15 13:45] VITALS: BP 118/70; PULSE 80; O2SAT 97; BMI 22.1
--- NOTE | 2023-05-15 13:45 | A.OFFPC_ITS ---
Vital Signs 05/15/23 13:45 Height 5 ft 3 in Weight 125 lb BMI 22.1 BP 118/70 Blood Pressure Location Lt brachial Position Sitting Pulse 80 Pulse Source Pulse Oximeter Pulse Oximetry (%) 97 Oxygen Delivery Method Room Air Intake Visit Reasons: Diabetic neuropathy Allergies adalimumab [From Humira] Adverse Reaction (Verified 05/15/23 13:45) sleepy pregabalin [From Lyrica] Adverse Reaction (Verified 05/15/23 13:45) Dizzyness Tobacco use date assessed: 10/23/22 Dental Screening Dental Screen Date: 05/15/23 Did you have a dental visit in the last 12 months?: Yes Did you have a dental problem in the last 6 months where you did not have access to dental care?: No Was dental information given to patient?: Patient has dentist HPI Diabetic neuropathy HPI Details 62-year-old male with diabetes mellitus type 1 hypercholesterolemia diabetic neuropathy on narcotic pain medication hypertension coronary artery disease COPD and chronic kidney disease last seen in January 2023 coming in for follow-up. Patient is being followed up by Endocrinology last complete blood work done October 2022 review of the notes seen by Pulmonary April 2023 continuing with Alana Rodriguez. Patient also follows up with urology incomplete bladder emptying sheri robertson and Brenda [facility] Medical History Ankle fracture Carpal tunnel syndrome Cholelithiasis Chronic kidney disease (CKD) stage G2/A3, mildly decreased glomerular filtration rate (GFR) between 60-89 mL/min/1.73 square meter and albuminuria creatinine ratio greater than 300 mg/g COPD (chronic obstructive pulmonary disease) COPD exacerbation Coronary artery disease Diabetes mellitus type 1 Diabetic neuropathy Eczema Hx of fracture of femur Hypercholesterolemia Hypertension Surgical History H/O umbilical hernia repair History of carpal tunnel release History of cholecystectomy History of elbow surgery Hx of appendectomy Hx of colonoscopy Hx of eye surgery Family History Father Hypertension Stroke CVD (cerebrovascular disease) Mother Hypertension CVD (cerebrovascular disease) Diabetes Sister HX: breast cancer Paternal Grandfather Colon cancer Social History Housing: House Alcohol intake: former Patient Tobacco Use Status: Former Tobacco user Tobacco use type: Cigarette e-Cigarette/Vaping Use: Never Used Second Hand Smoke Exposure: No Substance Use Type: Marijuana service: No Current occupational status: disabled Cognitive needs: No Hearing needs: No Vision needs: Yes Questionnaire PHQ-9 Over the last 2 weeks, how often have you been bothered by any of the following problems? 1. Little interest or pleasure in doing things: not at all 2. Feeling down, depressed, or hopeless: not at all 3. Trouble falling or staying asleep, or sleeping too much: not at all 4. Feeling tired or having little energy: not at all 5. Poor appetite or overeating: not at all 6. Feeling bad about yourself - or that you are a failure or have let yourself or your family down: not at all 7. Trouble concentrating on things, such as reading the newspaper or watching television: not at all 8. Moving or speaking so slowly that other people could have noticed. Or the opposite - being so fidgety or restless that you have been moving around a lot more than usual: not at all 9. Thoughts that you would be better off or of hurting yourself in some way: not at all Total score: 0 Depression Screening Interpretation: Negative Source: Developed by Drs. Dylan Mendez, Mick Stacy and colleagues, with an educational teto from [employer]. Thrive Questionnaire Date Thrive assessed: 10/23/22 AUDIT C Alcohol Use Questionnaire (AUDIT-C) 1. How often do you have a drink containing alcohol?: Never 3. How often do you have six or more drinks on one occasion?: Never Total Score: 0 Score Reviewed/Action Taken: No BARRY-7 AMB Questionnaire BARRY-7 Date BARRY - 7 assessed: 10/23/22 Source: Developed by Drs. Dylan Mendez, Mick Stacy and colleagues, with an educational teto from [employer]. Physical exam (Primary Care) Vital Signs: Oxygen Delivery Method Room Air 05/15/23 13:45 Tobacco/Smoking Status: Tobacco use Status Tobacco use date assessed 10/23/22 05/15/23 13:48 Patient Tobacco Use Status Former Tobacco user 05/15/23 13:48 Tobacco use type Cigarette 05/15/23 13:48 e-Cigarette/Vaping Use Never Used 05/15/23 13:48 PHQ-9: PHQ-9 Score PHQ-9: Total score 0 05/15/23 13:48 Depression Screening Interpretation: Negative Thrive Assessment: Date of Thrive Assessment Date Thrive assessed 10/23/22 05/15/23 13:48 Const General: alert; No acute distress Eyes Conjunctivae: conjunctivae normal Resp Auscultation: clear to auscultation bilaterally Cardio Rate: regular rate Rhythm: regular rhythm GI Inspection: Yes normal to inspection Extrem General: Yes normal to inspection and No edema Assessment and Plan Assessment & Plan (1) Diabetes mellitus type 1: Comment: Insulin Pump Dr. Rae Camargo Code(s): E10.9 - Type 1 diabetes mellitus without complications Qualifiers: Diabetes mellitus complication status: with neurologic complications Diabetes mellitus complication detail: with polyneuropathy Qualified Code(s): E10.42 - Type 1 diabetes mellitus with diabetic polyneuropathy Plan: Decrease the amount of carbohydrate intake, pasta, bread, rice and potatoes are all sugar and that is aside from all the sweet stuff, remember that fruits are good but they are Sweet also. Hemoglobin A1c goal of less than 7.0 patient follows up with endocrinology March 2023 7.7 (2) Chronic kidney disease (CKD) stage G2/A3, mildly decreased glomerular filtration rate (GFR) between 60-89 mL/min/1.73 square meter and albuminuria creatinine ratio greater than 300 mg/g: Code(s): N18.2 - Chronic kidney disease, stage 2 (mild) Plan: Keep well hydrated avoid NSAIDs. Reminded patient about the blood work request that was done (3) Hypercholesterolemia: Code(s): E78.00 - Pure hypercholesterolemia, unspecified Plan: Avoid fried foods, chicken skin, eggs, butter margarine, pastries and meat. Be it pork or beef they have a lot of cholesterol LDL goal of less than 70 (4) COPD (chronic obstructive pulmonary disease): Comment: HE IS A KNOWN CASE OF SEVERE COPD. [place] : SPIRIVA HANDIHALER ONE INH DAILY BREO 100 -25 ONE INH DAILY MUCINEX 1200 MG B.I.D. PRN ADVISED TO DRINK PLENTY OF FLUIDS. IPRATROPIUM/ALBUTEROL SOLUTION IN THE NEBULIZER Q 6 HOURS P.R.N. Code(s): J44.9 - Chronic obstructive pulmonary disease, unspecified Qualifiers: COPD type: emphysema Emphysema type: unspecified Qualified Code(s): J43.9 - Emphysema, unspecified Plan: Patient follows up with Pulmonary continuing with the inhalers. Discussed that smoking pot can cause irritation and exacerbation (5) Coronary artery disease: Code(s): I25.10 - Atherosclerotic heart disease of [place] coronary artery without angina pectoris Qualifiers: Coronary Disease-Associated Artery/Lesion type: [place] artery Teller vs. transplanted heart: [place] heart Associated angina: without angina Qualified Code(s): I25.10 - Atherosclerotic heart disease of [place] coronary artery without angina pectoris Plan: Control the cholesterol, weight, blood pressure, diabetes (6) Hypertension: Code(s): I10 - Essential (primary) hypertension Qualifiers: Hypertension type: essential hypertension Qualified Code(s): I10 - Essential (primary) hypertension Plan: Continue with blood pressure medication. Decrease salt intake and exercise patient is on lisinopril 40 mg once a day (7) Urinary retention with incomplete bladder emptying: Code(s): R33.9 - Retention of urine, unspecified Plan: Patient follows up with urology and has been prescribed bethanechol,Myrbetriq and tamsulosin (8) Constipation: Code(s): K59.00 - Constipation, unspecified Plan: Three rules for constipation 1. Diet need to have a high fiber diet less of meat 2. Increase oral fluids 3. Exercise (9) Renal calculi: Comment: 2020 Code(s): N20.0 - Calculus of kidney Plan: increase fliuid intake. Medications: New lactulose 0.5 grams (0.75 mL) PO DAILY PRN 946 mL 1RF constipation K59.00 - Constipation, unspecified Refilled hydrocodone-acetaminophen 5-325 mg 1 tab PO DAILY 30 days PRN 30 tabs 0RF pain E10.42 - Type 1 diabetes mellitus with diabetic polyneuropathy Coding Level of Care Code Est Pt Level 4 (46049) Diagnoses Type 1 diabetes mellitus with diabetic polyneuropathy E10.42 Diabetes mellitus complication status: with neurologic complications Diabetes mellitus complication detail: with polyneuropathy Chronic kidney disease (CKD) stage G2/A3, mildly decreased glomerular filtration rate (GFR) between 60-89 mL/min/1.73 square meter and albuminuria creatinine ratio greater than 300 mg/g N18.2 Hypercholesterolemia E78.00 Pulmonary emphysema, unspecified emphysema type J43.9 COPD type: emphysema Emphysema type: unspecified Coronary artery disease involving north fork coronary artery of [place] heart without angina pectoris I25.10 Coronary Disease-Associated Artery/Lesion type: [place] artery Teller vs. transplanted heart: [place] heart Associated angina: without angina Essential hypertension I10 Hypertension type: essential hypertension Urinary retention with incomplete bladder emptying R33.9 Constipation K59.00 Renal calculi N20.0 Additional Codes PHQ-9 - 03109 - PHQ-9 Billing: ([id number])
== END 2023-05-15 14:06 | disposition home or self-care (01) ==
PROVIDERS: PCP Internal Medicine; Visit Provider Internal Medicine
DX: E10.42 Type 1 diabetes mellitus with diabetic polyneuropathy (principal); I12.9 Hypertensive chronic kidney disease with stage 1 through stage 4 chronic kidney disease, or unspecified chronic kidney disease; N18.2 Chronic kidney disease, stage 2 (mild); J43.9 Emphysema, unspecified; E78.00 Pure hypercholesterolemia, unspecified; I25.10 Atherosclerotic heart disease of native coronary artery without angina pectoris; R33.9 Retention of urine, unspecified; K59.00 Constipation, unspecified; N20.0 Calculus of kidney
CPT/HCPCS: 99214

== ENCOUNTER 2023-07-03 09:58 | Outpatient (AMB) | payer MEDICARE, MEDICAID, SELFPAY ==
[2023-07-03 09:59] VITALS: BP 130/86; PULSE 81; O2SAT 99; BMI 22.5
--- NOTE | 2023-07-03 09:59 | A.OFFVIS_ITS ---
Intake Vital Signs 07/03/23 09:59 Height 5 ft 3 in Weight 127 lb BMI 22.5 BP 130/86 Blood Pressure Location Lt brachial Position Sitting Pulse 81 Pulse Source Pulse Oximeter Pulse Oximetry (%) 99 Oxygen Delivery Method Room Air Intake Visit Reasons: V G0439 Intake Note: Patient is here for an Annual Wellness Visit. Pit Operator Required: No Allergies adalimumab [From Humira] Adverse Reaction (Verified 07/03/23 10:14) sleepy pregabalin [From Lyrica] Adverse Reaction (Verified 07/03/23 10:14) Dizzyness Medication List - Last Reconciled 07/03/23 by GERMÁN Ledesma albuterol sulfate 90 mcg/actuation 2 puffs PO Q4-6H PRN aspirin (Adult Aspirin Regimen) 81 mg PO DAILY PRN bethanechol chloride 50 mg PO BID 90 days Breo Ellipta 100-25 mcg/dose (fluticasone furoate-vilanterol) 1 ea PO DAILY NS carbamazepine ER 200 mg PO BEDTIME docusate sodium 100 mg PO DAILY PRN gabapentin 100 mg PO BID PRN glucagon 3 mg/actuation (Baqsimi) mg intranasal hydrocodone-acetaminophen 5-325 mg 1 tab PO DAILY PRN 30 days insulin aspart U-100 70 units subcut DAILY insulin lispro (Humalog U-100 Insulin) 1 sliding scale dose subcut USEASDIRECTD ipratropium-albuterol 0.5 mg-3 mg(2.5 mg base)/3 mL 3 mL inhalation Q6-8H PRN 30 days lactulose 20 grams (30 mL) PO DAILY PRN lisinopril 40 mg PO DAILY metoclopramide HCl (Reglan) 10 mg PO Q6H PRN mirabegron ER (Myrbetriq) 25 mg PO DAILY 90 days rosuvastatin 40 mg PO DAILY sildenafil (Viagra) 100 mg PO DAILY PRN simethicone (Gas Relief (simethicone)) 125 mg PO BEDTIME Spiriva with HandiHaler (tiotropium bromide) 1 cap inhalation DAILY NS tamsulosin 0.4 mg PO DAILY 90 days HPI [facility] G0439 HPI Details Patient is a 62-year-old male who presents today for subsequent wellness visit. Patient of Dr. Martinez. Patient is up-to-date with his health preventative screenings and immunizations. [place] of care was reviewed with the patient and he was provided with a screening schedule. End of life planning was discussed with the patient and he was provided with healthcare proxy and MOLST forms. [facility] Medical History (Updated 07/03/23 @ 10:33 by GERMÁN Ledesma) Tinea pedis, left COPD exacerbation Hx of fracture of femur Eczema Cholelithiasis Carpal tunnel syndrome Ankle fracture Diabetes mellitus type 1 Chronic kidney disease (CKD) stage G2/A3, mildly decreased glomerular filtration rate (GFR) between 60-89 mL/min/1.73 square meter and albuminuria creatinine ratio greater than 300 mg/g Hypercholesterolemia Diabetic neuropathy COPD (chronic obstructive pulmonary disease) Coronary artery disease Hypertension Surgical History Hx of colonoscopy Hx of eye surgery Hx of appendectomy H/O umbilical hernia repair History of cholecystectomy History of elbow surgery History of carpal tunnel release Family History Father Hypertension Stroke CVD (cerebrovascular disease) Mother Hypertension CVD (cerebrovascular disease) Diabetes Sister HX: breast cancer Paternal Grandfather Colon cancer Social History Housing: House Alcohol intake: former Patient Tobacco Use Status: Former Tobacco user Tobacco use type: Cigarette e-Cigarette/Vaping Use: Never Used Second Hand Smoke Exposure: No Substance Use Type: Marijuana service: No Current occupational status: disabled Cognitive needs: No Hearing needs: No Vision needs: Yes Questionnaire Medicare Wellness Checkup What [age] your age?: 65-69 (61) What gender do you identify with?: male During the past 4 weeks, how much have you been bothered by emotional problems such as feeling anxious, depressed, irritable, sad or downhearted, and blue?: not at all During the past 4 weeks, has your physical & emotional health limited your social activities with family, friends, neighbors, or groups?: slightly During the past 4 weeks, how much bodily pain have you generally had?: severe pain (moderate pain/severe pain ) During the past 4 weeks, was someone available to help you if you needed & wanted help?: yes, some During the past 4 weeks, what was the hardest physical activity you could do for at least 2 minutes?: moderate Can you get to places out of walking distance without help? (For eg., can you travel alone on buses, taxis or drive your car?): No Can you go shopping for groceries or clothes without someone's help?: Yes Can you prepare your own meals?: Yes Can you do your housework without help?: Yes Because of any health problems, do you need the help of another person with your personal care needs such as eating, bathing, dressing or getting around the house?: No Can you handle your own money without help?: Yes During the past 4 weeks, how would you rate your health in general?: fair During the past 4 weeks how have things been going for you?: good & bad parts about equal Are you having difficulties driving your car?: no Do you always fasten your seat belt when you are in a car?: yes, usually During past 4 weeks, have you been bothered by the following: never: Sexual problems?, Trouble eating well?, Teeth or denture problems? and Problems using the telephone?, seldom: Falling or dizzy when standing up and always: Tiredness or fatigue? (sleepless ) Have you fallen 2 or more times in the past year?: Yes Are you afraid of falling?: No Are you a smoker?: no During the past 4 weeks, how many drinks of wine, beer, or other alcoholic beverages did you have?: no alcohol at all Do you exercise for about 20 minutes 3 or more times a week?: yes, some of the time Have you been given information to help with the following?: no: Hazards in your house that might hurt you? and no: Keeping track of your medications? How often do you have trouble taking medicines the way you have been told to take them?: I always take medicine as prescribed How confident are you that you can control & manage most of your health problems?: very confident What is your race?: White Mini Mental State Exam (MMSE) Orientation What is the (year) (season) (date) (day) (month)?: year, season, date, day and month Score Score: 5 Activity of Daily Living Bathing - sponge bath, tub bath or shower: receives no assistance (gets in/out by self, if usual bathing means Dressing - getting clothes from closets & drawers, including inner/outer garments & fasteners.: gets clothes & gets completely dressed without help Toileting - going to the 'toilet room' for urine/bowel elimination & cleaning self/arranging clothes: goes to toilet room, cleans self, arranges clothes without help Transfer: moves in & out of bed and chair without help (may use support object) Continence: controls urination/bowel movements completely by self Feeding: feeds self without help Total Score: 0 Information obtained from: patient Using telephone: independent Traveling: dependent Shopping: independent Preparing meals: independent Housework: independent Taking medicine: independent Managing money: independent PHQ-9 Over the last 2 weeks, how often have you been bothered by any of the following problems? 1. Little interest or pleasure in doing things: not at all 2. Feeling down, depressed, or hopeless: not at all 3. Trouble falling or staying asleep, or sleeping too much: nearly every day 4. Feeling tired or having little energy: several days 5. Poor appetite or overeating: not at all 6. Feeling bad about yourself - or that you are a failure or have let yourself or your family down: not at all 7. Trouble concentrating on things, such as reading the newspaper or watching television: not at all 8. Moving or speaking so slowly that other people could have noticed. Or the opposite - being so fidgety or restless that you have been moving around a lot more than usual: not at all 9. Thoughts that you would be better off or of hurting yourself in some way: not at all Total score: 4 Depression Screening Interpretation: Negative Depression Screening Done: Yes 04140 - PHQ-9 Billing: Yes Source: Developed by Drs. Dylan Mendez, Arabella Griffin, Mick Valero and colleagues, with an educational teto from [employer]. Physical Exam Vital Signs: Last Vital Signs Pulse 81 07/03/23 09:59 BP 130/86 07/03/23 09:59 Pulse Ox 99 07/03/23 09:59 Oxygen Delivery Method Room Air 07/03/23 09:59 BMI result Body Mass Index 22.5 Const General: cooperative and no acute distress Orientation/consciousness: patient oriented x3 HEENT Other: Whisper test: pass Neuro Other: Balance: Normal Get up and walk: able to Romberg: negative Tandem gait: unable to General: patient oriented x3 Office Procedures Flu Questionnaire Does the patient have a severe egg allergy?: No Does the patient have severe life threatening allergies?: No Does the patient have a fever or illness today?: No Has the patient ever had Guillain-[place]ather[place] Syndrome?: No Has the patient ever had any past reaction to a flu shot?: No Immunizations flu vacc [id number] 6mos up(PF) 60 mcg(15 mcgx4)/0.5 mL IM syringe Performing Provider: GERMÁN Ledesma [facility] Administered by: KAYODE Muir on 07/03/23 10:22 Dose Route Admin Location Dispensed Lot Number Expiration Date NDC Cementer Machine 0.5 mL IM Left Deltoid 0.5 mL [id number] 03/02/24 [id number] [employer] VIS Given Date VIS Provided VIS Publication Date 07/03/23 Single Vaccine 21 Eligibility Eligibility Date Funding Source [place] [facility] [place] 07/03/23 Private Assessment & Plan Assessment & Plan (1) Type 1 diabetes mellitus with chronic kidney disease: Code(s): E10.22 - Type 1 diabetes mellitus with diabetic chronic kidney disease Plan: Continue to follow-up with endocrinology and nephrology (2) BPH (benign prostatic hyperplasia): Code(s): N40.0 - Benign prostatic hyperplasia without lower urinary tract symptoms Qualifiers: Lower urinary tract symptom presence: symptoms present Lower urinary tract symptom detail: weak urinary stream Qualified Code(s): N40.1 - Benign prostatic hyperplasia with lower urinary tract symptoms; R39.12 - Poor urinary stream Plan: Tamsulosin 0.4 mg daily Continue to follow-up with urology Dr. Flores (3) Annual physical exam: Code(s): Z00.00 - Encounter for general adult medical examination without abnormal findings (4) Diabetes mellitus type 1: Comment: Insulin Pump Dr. Rae Camargo Code(s): E10.9 - Type 1 diabetes mellitus without complications Qualifiers: Diabetes mellitus complication status: with neurologic complications Diabetes mellitus complication detail: with polyneuropathy Qualified Code(s): E10.42 - Type 1 diabetes mellitus with diabetic polyneuropathy Plan: A1c 7.3 06/2023 per patient with endocrinology Continue current treatment Low-carbohydrate diet Continue to follow-up with endocrinology (5) Chronic kidney disease (CKD) stage G2/A3, mildly decreased glomerular filtration rate (GFR) between 60-89 mL/min/1.73 square meter and albuminuria creatinine ratio greater than 300 mg/g: Code(s): N18.2 - Chronic kidney disease, stage 2 (mild) Plan: Avoid nephrotoxic medications Continue to follow-up with nephrology (6) Hypercholesterolemia: Code(s): E78.00 - Pure hypercholesterolemia, unspecified Plan: Rosuvastatin 40 mg daily Low-cholesterol diet (7) Diabetic neuropathy: Code(s): E11.40 - Type 2 diabetes mellitus with diabetic neuropathy, unspecified Qualifiers: Diabetes mellitus type: type 1 Diabetes mellitus complication detail: diabetic polyneuropathy Qualified Code(s): E10.42 - Type 1 diabetes mellitus with diabetic polyneuropathy Plan: Continue to follow-up with Podiatry (8) COPD (chronic obstructive pulmonary disease): Comment: HE IS A KNOWN CASE OF SEVERE COPD. [place] : SPIRIVA HANDIHALER ONE INH DAILY BREO 100 -25 ONE INH DAILY MUCINEX 1200 MG B.I.D. PRN ADVISED TO DRINK PLENTY OF FLUIDS. IPRATROPIUM/ALBUTEROL SOLUTION IN THE NEBULIZER Q 6 HOURS P.R.N. Code(s): J44.9 - Chronic obstructive pulmonary disease, unspecified Qualifiers: COPD type: emphysema Emphysema type: unspecified Qualified Code(s): J43.9 - Emphysema, unspecified Plan: Continue current treatment Continue to follow-up with pulmonology Dr. Emerson (9) Hypertension: Code(s): I10 - Essential (primary) hypertension Qualifiers: Hypertension type: essential hypertension Qualified Code(s): I10 - Essential (primary) hypertension Plan: Continue current treatment Low-sodium diet Orders: Orders Influenza [id number] Immunization Today Z23 - Encounter for immunization Quality Reporting (2020) Depression/Bipolar (159/160/161/177) PHQ-9: Total score: 4 Coding Level of Care Code Medicare Subsequent (G0439) Diagnoses Type 1 diabetes mellitus with chronic kidney disease E10.22 Benign prostatic hyperplasia with weak urinary stream N40.1; R39.12 Lower urinary tract symptom presence: symptoms present Lower urinary tract symptom detail: weak urinary stream Annual physical exam Z00.00 Type 1 diabetes mellitus with diabetic polyneuropathy E10.42 Diabetes mellitus complication status: with neurologic complications Diabetes mellitus complication detail: with polyneuropathy Chronic kidney disease (CKD) stage G2/A3, mildly decreased glomerular filtration rate (GFR) between 60-89 mL/min/1.73 square meter and albuminuria creatinine ratio greater than 300 mg/g N18.2 Hypercholesterolemia E78.00 Diabetic polyneuropathy associated with type 1 diabetes mellitus E10.42 Diabetes mellitus type: type 1 Diabetes mellitus complication detail: diabetic polyneuropathy Pulmonary emphysema, unspecified emphysema type J43.9 COPD type: emphysema Emphysema type: unspecified Essential hypertension I10 Hypertension type: essential hypertension CPT Codes Advance Care Planning - Time spent: 1-15 minutes, not on file ([id number]) Advance Care Planning Date of discussion: 07/03/23 Who was present: pt and salesperson books Forms completed: None Time spent: 1-15 minutes, not on file Actual minutes spent: 3 Did not discuss due to Cultural/Spiritual beliefs: No
== END 2023-07-03 10:32 | disposition home or self-care (01) ==
PROVIDERS: Visit Provider Nurse Practitioner Family
DX: Z23 Encounter for immunization (principal); Z00.00 Encounter for general adult medical examination without abnormal findings; E10.22 Type 1 diabetes mellitus with diabetic chronic kidney disease; I12.9 Hypertensive chronic kidney disease with stage 1 through stage 4 chronic kidney disease, or unspecified chronic kidney disease; N18.2 Chronic kidney disease, stage 2 (mild)
CPT/HCPCS: 1124F; 90471; 90686; G0439

== ENCOUNTER 2023-07-27 10:24 | Outpatient (REF) | payer MEDICARE, MEDICAID, SELFPAY ==
[2023-07-27 15:11] LABS: Anion Gap 12 (12-20); Blood Urea Nitrogen 24 mg/dL (9-16); Carbon Dioxide 27 mmol/L (22-29); Chloride 105 mmol/L (96-108); Estimated Glomerular Filt Rate 48; Glucose Random 139 mg/dL (60-115); Potassium 4.7 mmol/L (3.3-5.1); Sodium 139 mmol/L (135-145)
== END 2023-07-27 10:25 | disposition home or self-care (01) ==
LOC: HO.HMGCLDS 10:24
PROVIDERS: PCP Internal Medicine; Visit Provider Internal Medicine
DX: N18.2 Chronic kidney disease, stage 2 (mild) (principal)
CPT/HCPCS: 36415; 80048

== ENCOUNTER 2023-07-30 13:48 | Outpatient (AMB) | payer MEDICARE, MEDICAID, SELFPAY ==
[2023-07-30 13:55] VITALS: BP 134/70; PULSE 76; O2SAT 98; BMI 22.1
--- NOTE | 2023-07-30 13:55 | MHC.PC.OV ---
Vital Signs 07/30/23 13:55 Height 5 ft 3 in Weight 125 lb BMI 22.1 BP 134/70 Blood Pressure Location Lt brachial Position Sitting Pulse 76 Pulse Source Pulse Oximeter Pulse Oximetry (%) 98 Oxygen Delivery Method Room Air Intake Visit Reasons: PE Intake Note: Patient is here today for a physical. 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 Required: No Allergies adalimumab [From Humira] Adverse Reaction (Verified 07/30/23 13:57) sleepy pregabalin [From Lyrica] Adverse Reaction (Verified 07/30/23 13:57) Dizzyness Medication List - Last Reconciled 07/30/23 by Rhea Martinez MD albuterol sulfate 90 mcg/actuation (Ventolin HFA) 2 puffs PO Q4-6H PRN aspirin (Adult Aspirin Regimen) 81 mg PO DAILY PRN bethanechol chloride 50 mg PO BID 90 days Breo Ellipta 100-25 mcg/dose (fluticasone furoate-vilanterol) 1 ea PO DAILY NS carbamazepine ER 200 mg PO BEDTIME carvedilol 3.125 mg PO BID docusate sodium 100 mg PO DAILY PRN gabapentin 100 mg PO DAILY PRN glucagon 3 mg/actuation (Baqsimi) mg intranasal hydrocodone-acetaminophen 5-325 mg 1 tab PO DAILY PRN 30 days insulin aspart U-100 70 units subcut DAILY insulin lispro (Humalog U-100 Insulin) 1 sliding scale dose subcut USEASDIRECTD ipratropium-albuterol 0.5 mg-3 mg(2.5 mg base)/3 mL 3 mL inhalation Q6-8H PRN 30 days lactulose 20 grams (30 mL) PO DAILY PRN lisinopril 40 mg PO DAILY metoclopramide HCl (Reglan) 10 mg PO Q6H PRN mirabegron ER (Myrbetriq) 25 mg PO DAILY 90 days rosuvastatin 40 mg PO DAILY sildenafil (Viagra) 100 mg PO DAILY PRN simethicone (Gas Relief (simethicone)) 125 mg PO BEDTIME Spiriva with HandiHaler (tiotropium bromide) 1 cap inhalation DAILY NS tamsulosin 0.4 mg PO DAILY 90 days Tobacco use date assessed: 07/30/23 Dental Screening Dental Screen Date: 07/30/23 Did you have a dental visit in the last 12 months?: Yes Did you have a dental problem in the last 6 months where you did not have access to dental care?: No Was dental information given to patient?: Patient has dentist HPI PE HPI Details 62-year-old male with diabetes mellitus type 1 chronic kidney disease hypercholesterolemia COPD coronary artery disease hypertension coming in for physical exam. Last seen in May 2023. Patient's colonoscopy is up-to-date. Patient is up-to-date with eye exam. Review of the notes Nephrology notes with diagnosis of chronic kidney disease stage IIIA hypertensive disorder BPH stable renal function blood pressure elevated at that time added carvedilol 6.25 mg twice a day has advised 1 gal of fluids a day PFSH Medical History (Updated 07/03/23 @ 10:33 by GERMÁN Ledesma) Tinea pedis, left COPD exacerbation Hx of fracture of femur Eczema Cholelithiasis Carpal tunnel syndrome Ankle fracture Diabetes mellitus type 1 Chronic kidney disease (CKD) stage G2/A3, mildly decreased glomerular filtration rate (GFR) between 60-89 mL/min/1.73 square meter and albuminuria creatinine ratio greater than 300 mg/g Hypercholesterolemia Diabetic neuropathy COPD (chronic obstructive pulmonary disease) Coronary artery disease Hypertension Surgical History Hx of colonoscopy Hx of eye surgery Hx of appendectomy H/O umbilical hernia repair History of cholecystectomy History of elbow surgery History of carpal tunnel release Family History Father Hypertension Stroke CVD (cerebrovascular disease) Mother Hypertension CVD (cerebrovascular disease) Diabetes Sister HX: breast cancer Paternal Grandfather Colon cancer Housing: House Alcohol intake: former Patient Tobacco Use Status: Former Tobacco user Tobacco use type: Cigarette e-Cigarette/Vaping Use: Never Used Second Hand Smoke Exposure: No Substance Use Type: Marijuana service: No Current occupational status: disabled Cognitive needs: No Hearing needs: No Vision needs: Yes Questionnaire PHQ-9 Over the last 2 weeks, how often have you been bothered by any of the following problems? 1. Little interest or pleasure in doing things: not at all 2. Feeling down, depressed, or hopeless: not at all 3. Trouble falling or staying asleep, or sleeping too much: not at all 4. Feeling tired or having little energy: not at all 5. Poor appetite or overeating: not at all 6. Feeling bad about yourself - or that you are a failure or have let yourself or your family down: not at all 7. Trouble concentrating on things, such as reading the newspaper or watching television: not at all 8. Moving or speaking so slowly that other people could have noticed. Or the opposite - being so fidgety or restless that you have been moving around a lot more than usual: not at all 9. Thoughts that you would be better off or of hurting yourself in some way: not at all Total score: 0 Depression Screening Interpretation: Negative Depression Screening Done: Yes Source: Developed by Drs. Dylan Mendez, Arabella Griffin, Mick Valero and colleagues, with an educational teto from [employer]. Thrive Questionnaire Date Thrive assessed: 10/23/22 AUDIT C Alcohol Use Questionnaire (AUDIT-C) 1. How often do you have a drink containing alcohol?: Never 3. How often do you have six or more drinks on one occasion?: Never Total Score: 0 Score Reviewed/Action Taken: No BARRY-7 AMB Questionnaire BARRY-7 Date BARRY - 7 assessed: 07/30/23 Feeling nervous, anxious, or on edge: 0 = Not at all Not being able to stop or control worryin = Not at all Worrying too much about different things: 0 = Not at all Trouble relaxin = Not at all Being so restless that it is hard to sit still: 0 = Not at all Becoming easily annoyed or irritable: 0 = Not at all Feeling afraid as if something awful might happen: 0 = Not at all Total BARRY-7 score (0-4 normal; 5-9 mild; 10-14 moderate; 15-21 severe): 0 Source: Developed by Drs. Dylan Mendez, Mick Stacy and colleagues, with an educational teto from [employer]. Review of Systems Const Denies poor appetite and Denies weakness Eyes Denies no additional complaints ENT Reports Normal hearing present, Denies dizziness, Denies nasal congestion, Denies tinnitus and Denies sore throat Card Denies chest pain, Denies syncope, Denies rapid heart rate and Denies dyspnea Resp Denies cough and Denies dyspnea GI Denies change in stool character, Reports constipation, Denies diarrhea, Denies nausea and Denies vomiting Denies dysuria and Denies urinary frequency Neuro Reports Normal hearing present, Denies confusion, Denies dizziness, Denies syncope and Denies weakness Psych Denies confusion Physical exam (Primary Care) Vital Signs: Last Vital Signs Pulse 76 07/30/23 13:55 BP 134/70 07/30/23 13:55 Pulse Ox 98 07/30/23 13:55 Oxygen Delivery Method Room Air 07/30/23 13:55 BMI result Body Mass Index 22.1 Tobacco/Smoking Status: Tobacco use Status Tobacco use date assessed 07/30/23 07/30/23 14:02 Patient Tobacco Use Status Former Tobacco user 07/30/23 13:55 Tobacco use type Cigarette 07/30/23 13:55 e-Cigarette/Vaping Use Never Used 07/30/23 13:55 PHQ-9: PHQ-9 Score PHQ-9: Total score 0 07/30/23 14:03 Depression Screening Interpretation: Negative Thrive Assessment: Date of Thrive Assessment Date Thrive assessed 10/23/22 07/30/23 13:55 Const General: No confusion Orientation/consciousness: No confusion HENMT Head: Yes normocephalic Ears: external ears normal and TM's normal bilaterally Face and sinus: Yes normal facial exam Mouth: moist mucous membranes Throat: Yes tonsils normal Eyes Conjunctivae: conjunctivae normal Pupils: Equal, round and reactive pupils present and Pupil accommodation reflex normal Direct Ophthalmoscopy: normal light reflex Neck Neck: No lymphadenopathy Thyroid: Thyroid normal Chest Chest palpation & inspection: normal inspection of the chest Resp Other: noted LLF crackles Effort & Inspection: normal respiratory effort and no audible wheezes Auscultation: crackles, no wheezes and lung sounds not diminished Cardio Rate: regular rate Rhythm: regular rhythm Peripheral pulses: radial pulses present and dorsalis pedis present GI Other: guaiac negative prostate mild enlargeed Palpation (GI): no masses Auscultation: normal bowel sounds and normoactive bowel sounds Skin General skin exam: no rashes or lesions noted Rashes: no rashes Neuro General: No confusion Cranial nerves: Yes Equal, round and reactive pupils present and Yes Normal hearing present Cognition (Neuro): normal cognition Gait exam (Neuro): Normal gait present Motor exam (neuro): 5/5 motor strength present throughout Deep tendon reflexes (DTR's): Right brachioradialis reflex intensity grade: 2+, Left brachioradialis reflex intensity grade: 2+, Right patellar reflex intensity grade: 2+ and Left patellar reflex intensity grade: 2+ Extrem Other: pedal pulse weak General: No edema Assessment and Plan Assessment & Plan (1) Annual physical exam: Code(s): Z00.00 - Encounter for general adult medical examination without abnormal findings (2) Type 1 diabetes mellitus with chronic kidney disease: Code(s): E10.22 - Type 1 diabetes mellitus with diabetic chronic kidney disease Plan: Continue to follow up with endocrinology. Patient is taking insulin through a pump (3) Hypertension: Code(s): I10 - Essential (primary) hypertension Qualifiers: Hypertension type: essential hypertension Qualified Code(s): I10 - Essential (primary) hypertension Plan: Continue with blood pressure medication. Decrease salt intake and exercise patient follows up Nephrology also has lisinopril 40 mg once a day (4) Coronary artery disease: Code(s): I25.10 - Atherosclerotic heart disease of [place] coronary artery without angina pectoris Qualifiers: Coronary Disease-Associated Artery/Lesion type: [place] artery [place] vs. transplanted heart: [place] heart Associated angina: without angina Qualified Code(s): I25.10 - Atherosclerotic heart disease of [place] coronary artery without angina pectoris Plan: Control the cholesterol, weight, blood pressure, diabetes (5) COPD (chronic obstructive pulmonary disease): Comment: HE IS A KNOWN CASE OF SEVERE COPD. [place] : SPIRIVA HANDIHALER ONE INH DAILY BREO 100 -25 ONE INH DAILY MUCINEX 1200 MG B.I.D. PRN ADVISED TO DRINK PLENTY OF FLUIDS. IPRATROPIUM/ALBUTEROL SOLUTION IN THE NEBULIZER Q 6 HOURS P.R.N. Code(s): J44.9 - Chronic obstructive pulmonary disease, unspecified Qualifiers: COPD type: emphysema Emphysema type: unspecified Qualified Code(s): J43.9 - Emphysema, unspecified Plan: Patient continues with inhalers on Breo (6) Hypercholesterolemia: Code(s): E78.00 - Pure hypercholesterolemia, unspecified Plan: Avoid fried foods, chicken skin, eggs, butter margarine, pastries and meat. Be it pork or beef they have a lot of cholesterol LDL goal of less than 70 and triglyceride of less than 150 last blood work was October 2022 (7) Chronic kidney disease (CKD) stage G2/A3, mildly decreased glomerular filtration rate (GFR) between 60-89 mL/min/1.73 square meter and albuminuria creatinine ratio greater than 300 mg/g: Code(s): N18.2 - Chronic kidney disease, stage 2 (mild) Plan: Follows up with Nephrology and stable avoid NSAIDs control the blood pressure (8) BPH (benign prostatic hyperplasia): Code(s): N40.0 - Benign prostatic hyperplasia without lower urinary tract symptoms Qualifiers: Lower urinary tract symptom presence: symptoms present Lower urinary tract symptom detail: weak urinary stream Qualified Code(s): N40.1 - Benign prostatic hyperplasia with lower urinary tract symptoms; R39.12 - Poor urinary stream Plan: Continue with tamsulosin Orders: Orders AMB Hemoglobin A1c Today E10.9 - Type 1 diabetes mellitus without complications Medications: Refilled hydrocodone-acetaminophen 5-325 mg 1 tab PO DAILY 30 days PRN 30 tabs 0RF pain E10.42 - Type 1 diabetes mellitus with diabetic polyneuropathy Coding Level of Care Code Est Pt Prev Care 40-64y(88961) Diagnoses Annual physical exam Z00.00 Type 1 diabetes mellitus with chronic kidney disease E10.22 Essential hypertension I10 Hypertension type: essential hypertension Coronary artery disease involving [place] coronary artery of [place] heart without angina pectoris I25.10 Coronary Disease-Associated Artery/Lesion type: [place] artery [place] vs. transplanted heart: [place] heart Associated angina: without angina Pulmonary emphysema, unspecified emphysema type J43.9 COPD type: emphysema Emphysema type: unspecified Hypercholesterolemia E78.00 Chronic kidney disease (CKD) stage G2/A3, mildly decreased glomerular filtration rate (GFR) between 60-89 mL/min/1.73 square meter and albuminuria creatinine ratio greater than 300 mg/g N18.2 Benign prostatic hyperplasia with weak urinary stream N40.1; R39.12 Lower urinary tract symptom presence: symptoms present Lower urinary tract symptom detail: weak urinary stream
== END 2023-07-30 14:43 | disposition home or self-care (01) ==
PROVIDERS: Visit Provider Internal Medicine
DX: Z00.00 Encounter for general adult medical examination without abnormal findings (principal); I12.9 Hypertensive chronic kidney disease with stage 1 through stage 4 chronic kidney disease, or unspecified chronic kidney disease; E10.22 Type 1 diabetes mellitus with diabetic chronic kidney disease; N18.2 Chronic kidney disease, stage 2 (mild); J43.9 Emphysema, unspecified; I25.10 Atherosclerotic heart disease of native coronary artery without angina pectoris; E78.00 Pure hypercholesterolemia, unspecified; N40.1 Benign prostatic hyperplasia with lower urinary tract symptoms; R39.12 Poor urinary stream
CPT/HCPCS: 99396

== ENCOUNTER 2023-08-31 12:00 | Outpatient (AMB) | payer MEDICARE, MEDICAID, SELFPAY ==
--- NOTE | 2023-08-31 12:25 | A.OFFVIS_ITS ---
Intake Intake Visit Reasons: 6m/PVR Intake Note: Patient is Present for urinary frequency Urology Medication: Tamsulosin, Myrbetriq, Bethanechol Blood Thinner: Aspirin PVR: 64ml's Configuration Management Analyst Required: No Accompanied by: Self / Same As Patient Allergies adalimumab [From Humira] Adverse Reaction (Verified 09/01/23 22:14) sleepy pregabalin [From Lyrica] Adverse Reaction (Verified 09/01/23 22:14) Dizzyness Medication List - Last Reconciled 09/01/23 by LEE ToussaintP- albuterol sulfate 90 mcg/actuation (Ventolin HFA) 2 puffs PO Q4-6H PRN aspirin (Adult Aspirin Regimen) 81 mg PO DAILY PRN bethanechol chloride 50 mg PO BID 90 days Breo Ellipta 100-25 mcg/dose (fluticasone furoate-vilanterol) 1 ea PO DAILY NS carbamazepine ER 200 mg PO BEDTIME carvedilol 3.125 mg PO BID docusate sodium 100 mg PO DAILY PRN gabapentin 100 mg PO DAILY PRN glucagon 3 mg/actuation (Baqsimi) mg intranasal hydrocodone-acetaminophen 5-325 mg 1 tab PO DAILY PRN 30 days insulin aspart U-100 70 units subcut DAILY insulin lispro (Humalog U-100 Insulin) 1 sliding scale dose subcut USEASDIRECTD ipratropium-albuterol 0.5 mg-3 mg(2.5 mg base)/3 mL 3 mL inhalation Q6-8H PRN 30 days lactulose 20 grams (30 mL) PO DAILY PRN lisinopril 40 mg PO DAILY metoclopramide HCl (Reglan) 10 mg PO Q6H PRN mirabegron ER (Myrbetriq) 25 mg PO DAILY 90 days rosuvastatin 40 mg PO DAILY sildenafil (Viagra) 100 mg PO DAILY PRN simethicone (Gas Relief (simethicone)) 125 mg PO BEDTIME Spiriva with HandiHaler (tiotropium bromide) 1 cap inhalation DAILY NS tamsulosin 0.4 mg PO DAILY 90 days HPI HPI Comments History of Present Illness Details Simone is a very pleasant 63-year-old male patient of Dr. Martinez. He has a past medical history of carpal tunnel syndrome, chronic kidney disease, COPD, coronary artery disease, diabetes type 1, diabetic neuropathy, eczema, hypercholesteremia, and hypertension. He presents to the office today for follow-up of his incomplete bladder emptying, weak stream, erectile dysfunction, overactive bladder, and diabetic cystopathy. In discussion with the patient today he reports to be doing and feeling well. He reports to be happy with his current voiding parameters on 0.4 mg of Flomax daily, bethanechol 50 mg b.i.d. and Myrbetriq 25 mg daily. In office urinalysis results reviewed with the patient today. PVR 64 mL's. He continues with good emptying with combination therapy. When asked he denies any bothersome urinary issues or concerns. In office urinalysis results reviewed with the patient today. He otherwise offers no other issues or concerns at this time. PSAs are as follows: 10/26--1.3 PREVIOUS OFFICE NOTE----- BPH with incomplete emptying progressive symptoms - urgency frequency with leakage tried tamsulosin 0.4 with minimal impact background of type 1 diabetes since 6 years old PSA 07/24 1.4, 10/26 1.3 symptoms at presentation - weakness of stream, incomplete emptyi ng, hesitancy Cystoscopy - 03/23 small prostate with high residual Imaging - 09/24 CT scan 5 mm right stone Overactive bladder Diabetic cystopathy Initial symptoms include nocturia x3 Good response to Myrbetriq with decrease in nocturia to 1 time per night PFSH Medical History Tinea pedis, left COPD exacerbation Hx of fracture of femur Eczema Cholelithiasis Carpal tunnel syndrome Ankle fracture Diabetes mellitus type 1 Chronic kidney disease (CKD) stage G2/A3, mildly decreased glomerular filtration rate (GFR) between 60-89 mL/min/1.73 square meter and albuminuria creatinine r atio greater than 300 mg/g Hypercholesterolemia Diabetic neuropathy COPD (chronic obstructive pulmonary disease) Coronary artery disease Hypertension Surgical History Hx of colonoscopy Hx of eye surgery Hx of appendectomy H/O umbilical hernia repair History of cholecystectomy History of elbow surgery History of carpal tunnel release Family History Father Hypertension Stroke CVD (cerebrovascular disease) Mother Hypertension CVD (cerebrovascular disease) Diabetes Sister HX: breast cancer Paternal Grandfather Colon cancer Social History Housing: House Alcohol intake: former Patient Tobacco Use Status: Former Tobacco user Tobacco use type: Cigarette e-Cigarette/Vaping Use: Never Used Second Hand Smoke Exposure: No Substance Use Type: Marijuana service: No Current occupational status: disabled Cognitive needs: No Hearing needs: No Vision needs: Yes Review of Systems Const Reports as per HPI Eyes Reports no additional complaints ENT Reports no additional complaints Card Reports as per HPI Resp Reports as per HPI GI Reports no additional complaints Reports as per HPI Musc Reports no additional complaints Neuro Reports no additional complaints Psych Reports no additional complaints Endo Reports as per HPI Physical Exam Const General: cooperative, comfortable, no acute distress, well developed, alert and awake Orientation/consciousness: patient oriented x3 HEENT Head: Yes normal to inspection, Yes normocephalic and Yes atraumatic Ears: hearing grossly normal bilaterally Eyes General: appearance normal, both eyes and all related structures Neck Neck: Yes normal visual inspection and Yes trachea midline Chest Chest palpation & inspection: normal inspection of the chest Resp Effort & Inspection: normal respiratory effort and able to speak in complete sentences Cardio Rate: regular rate GI Inspection: Yes normal to inspection General: Yes no CVA tenderness Back/Spine/Pelvis Back: no CVA tenderness Skin General skin exam: no rashes or lesions noted Neuro General: patient oriented x3 Extrem General: Yes normal to inspection Psych Appearance: grossly normal and well kempt Mental Status: mental status grossly normal Speech and movement: Normal speech and movement present and Clear speech present Affect: normal affect Attitude: cooperative Thought process: Normal thought process present Thought content: Normal thought content present Insight: Good insight present (Psych) Judgement: Good judgement present (Psych) Office Procedures Post Void Residual Post Residual Void Post Void Residual (PVR): 64 [id number] Void Residual by ultrasound Results AMB Urinalysis, Automated UA Leukoctes 0 Christine/uL Last Edit by Soniya Alberts on 08/31/23 12:37 UA Nitrite Negative Last Edit by Soniya Alberts on 08/31/23 12:37 UA Urobilinogen 0.2 mg/dL Last Edit by Soniya Alberts on 08/31/23 12:37 UA Protein 30 mg/dL Last Edit by Soniya Alberts on 08/31/23 12:37 UA pH 6.0 Last Edit by Soniya Alberts on 08/31/23 12:37 UA Blood 0 Stevan/uL Last Edit by Soniya Alberts on 08/31/23 12:37 UA Specific Thayer 1.015 Last Edit by Soniya Alberts on 08/31/23 12:37 UA Ketone Negative Last Edit by Soniya Alberts on 08/31/23 12:37 UA Bilirubin 0 mg/dL Last Edit by Soniya Alberts on 08/31/23 12:37 UA Glucose 100 mg/dL Last Edit by Soniya Alberts on 08/31/23 12:37 Results Reviewed Results Reviewed: Laboratory Last Values Urine pH (Auto) 6.0 08/31/23 12:26 Specific [place] (Auto) 1.015 08/31/23 12:26 Urine Protein (Auto) 30 mg/dL 08/31/23 12:26 Glucose (UA)(Auto) 100 mg/dL 08/31/23 12:26 Urine Ketones (Auto) Negative 08/31/23 12:26 Urine Blood (Auto) 0 Stevan/uL 08/31/23 12:26 Urine Nitrite (Auto) Negative 08/31/23 12:26 Urine Bilirubin (Auto) 0 mg/dL 08/31/23 12:26 Urine Urobilinogen (Auto) 0.2 mg/dL 08/31/23 12:26 Leukocyte Esterase (Auto) 0 Christine/uL 08/31/23 12:26 Assessment & Plan Assessment & Plan (1) Urinary frequency: Code(s): R35.0 - Frequency of micturition (2) Urinary retention with incomplete bladder emptying: Code(s): R33.9 - Retention of urine, unspecified (3) BPH (benign prostatic hyperplasia): Code(s): N40.0 - Benign prostatic hyperplasia without lower urinary tract symptoms Qualifiers: Lower urinary tract symptom detail: weak urinary stream Lower urinary tract symptom presence: symptoms present Qualified Code(s): N40.1 - Benign prostatic hyperplasia with lower urinary tract symptoms; R39.12 - Poor urinary stream (4) Renal calculi: Comment: 2020 Code(s): N20.0 - Calculus of kidney (5) Weak urinary stream: Code(s): R39.12 - Poor urinary stream (6) Urinary incontinence: Code(s): R32 - Unspecified urinary incontinence (7) Erectile dysfunction: Code(s): N52.9 - Male erectile dysfunction, unspecified Plan In office urinalysis results reviewed with the patient today; as noted above PVR 64 mL. Continue urological medications as discussed and prescribed; Myrbetriq, bethanechol, and tamsulosin Patient denies any urological issues or concerns at this time Patient is happy with current voiding parameters on Myrbetriq, bethanechol, and tamsulosin; will continue. Will obtain PSA in 6 months. Will obtain retroperitoneal ultrasound prior to next office visit as discussed Discussed and stressed the importance of managing diabetes for improvement in urinary symptoms as well as for overall health and well-being. Follow-up in 6 months with PVR, PSA, and imaging to be completed prior; or sooner with any issues, concerns, and or questions. Orders: Orders AMB Post Void Residual by ultrasound 08/31/23 R32 - Unspecified urinary incontinence US retroperitoneal comp 08/31/23 R33.9 - Retention of urine, unspecified, R35.0 - Frequency of micturition AMB Urinalysis Automated 08/31/23 Z13.9 - Encounter for screening, unspecified Prostate Specific Antigen 6 Months N40.0 - Benign prostatic hyperplasia without lower urinary tract symptoms, R33.9 - Retention of urine, unspecified, R35.0 - Frequency of micturition Patient Instructions: The patient had an opportunity to ask questions regarding the treatment plan. All questions were answered. Physical exam, labs, and imaging were discussed and reviewed in detail. As well as risks, benefits, and discussion of treatment choices. No major barriers to understanding were identified. The patient expressed understanding and agreement with the above treatment plan. The patient was made aware they should contact our office by phone for worsening of their current condition, the appearance of new symptoms, or with any questions or concerns. Compliance is encouraged with any medications and follow up testing that is ordered. It is a privilege to be allowed the opportunity to participate in? your urological care.? Again, if you have any questions or concerns If you have any questions or concerns please do not hesitate to contact me. The office is [phone]. This note is constructed using voice recognition software. While every effort le s been made to ensure accuracy clinical lab scientist errors may have been included. Yours sincerely, [place] Toussaint Coding Level of Care Code Est Pt Level 3 (89253) Diagnoses Urinary frequency R35.0 Urinary retention with incomplete bladder emptying R33.9 Benign prostatic hyperplasia with weak urinary stream N40.1; R39.12 Lower urinary tract symptom detail: weak urinary stream Lower urinary tract symptom presence: symptoms present Renal calculi N20.0 Weak urinary stream R39.12 Urinary incontinence R32 Erectile dysfunction N52.9 CPT Codes Post Residual Void - PVR CPT Code: 26970-Geiy Void Residual by ultrasound ([id number])
== END 2023-08-31 13:00 | disposition home or self-care (01) ==
PROVIDERS: PCP Internal Medicine; Visit Provider Nurse Practitioner Family
DX: N40.1 Benign prostatic hyperplasia with lower urinary tract symptoms (principal); R35.0 Frequency of micturition; R33.9 Retention of urine, unspecified; R39.12 Poor urinary stream; N20.0 Calculus of kidney; R32 Unspecified urinary incontinence; N52.9 Male erectile dysfunction, unspecified
CPT/HCPCS: 99213

== ENCOUNTER → 2023-08-31 12:00 | Outpatient (BNVA) | payer MEDICARE, MEDICAID, SELFPAY | PROVIDERS: PCP Internal Medicine; Visit Provider Nurse Practitioner Family | DX: N40.1 Benign prostatic hyperplasia with lower urinary tract symptoms (principal); R35.0 Frequency of micturition; R33.8 Other retention of urine; R39.12 Poor urinary stream; N20.0 Calculus of kidney; R32 Unspecified urinary incontinence; N52.9 Male erectile dysfunction, unspecified | CPT/HCPCS: 51798; 81003; 99212 ==

== ENCOUNTER 2023-09-12 09:55 | Outpatient (REF) | payer MEDICARE, MEDICAID, SELFPAY ==
--- NOTE | ~2023-09-12 | US_ITS ---
EXAMINATION: US RETROPERITONEAL COMPLETE (RENAL) CLINICAL INFORMATION: Frequency of micturition. COMPARISON: CT abdomen and pelvis 07/21/2021. Ultrasound bladder 12/31/2020. X-ray abdomen 04/08/2020. TECHNIQUE: Real-time imaging of the kidneys and bladder. FINDINGS: RIGHT KIDNEY: 9.1 x 5.6 x 5.1 cm (SAG x AP x TRV). The kidney is normal in size and contour. No renal calculi or hydronephrosis. There is 0.8 x 0.6 x 1.0 cm simple lower pole cyst for which no imaging follow-up is recommended. No obvious calculus is seen. There are multiple echogenic foci but these have not twinkle artifact or shadowing. LEFT KIDNEY: 9.3 x 5.0 x 4.9 cm (SAG x AP x TRV). The kidney is normal in size and contour. No renal calculi or hydronephrosis. There is a 1.5 x 1.5 x 1.5 cm simple cyst in the mid kidney which no imaging follow-up is recommended. There is a septated cyst 1.3 x 0.7 x 1.3 cm cyst in the mid kidney. This is difficult to accurately measure. No obvious calculi are seen. There are multiple echogenic foci without twinkle artifact and shadowing. BLADDER: Partially distended. Bilateral ureteral jets are demonstrated. Prevoid bladder volume is 110 mL. Postvoid bladder volume is 103 mL. ADDITIONAL FINDINGS: The prostate is enlarged measuring 52.0 mL. US/US retroperitoneal comp IMPRESSION: 1. 1.3 cm septated cyst in the mid left kidney. This is difficult to accurately measure. 2. Large post void residual. 3. Enlarged prostate.
== END 2023-09-12 09:56 | disposition home or self-care (01) ==
LOC: HO.HMGCX 09:55
PROVIDERS: PCP Internal Medicine; Visit Provider Nurse Practitioner Family
DX: R35.0 Frequency of micturition (principal); R33.9 Retention of urine, unspecified
CPT/HCPCS: 76770

== ENCOUNTER 2023-10-23 14:00 | Outpatient (AMB) | payer MEDICARE, MEDICAID, SELFPAY ==
--- NOTE | 2023-10-23 14:03 | A.OFFVIS_ITS ---
Intake Vital Signs 10/23/23 14:04 Height 5 ft 3 in Weight 123 lb BMI 21.8 BP 104/62 Blood Pressure Location Lt brachial Position Sitting Pulse 75 Pulse Source Pulse Oximeter Pulse Oximetry (%) 96 Oxygen Delivery Method Room Air Intake Visit Reasons: Cough Intake Note: pt is here for follow up and states he is feeling at his baseline. Using at least one albuterol hit before bed. 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 Allergies adalimumab [From Humira] Adverse Reaction (Verified 10/23/23 14:10) sleepy pregabalin [From Lyrica] Adverse Reaction (Verified 10/23/23 14:10) Dizzyness Medication List - Last Reviewed 10/23/23 by KAYODE Saunders albuterol sulfate 90 mcg/actuation (Ventolin HFA) 2 puffs PO Q4-6H PRN aspirin (Adult Aspirin Regimen) 81 mg PO DAILY PRN bethanechol chloride 50 mg PO BID 90 days Breo Ellipta 100-25 mcg/dose (fluticasone furoate-vilanterol) 1 ea PO DAILY NS carbamazepine ER 200 mg PO BEDTIME carvedilol 12.5 mg PO BID docusate sodium 100 mg PO DAILY PRN gabapentin 100 mg PO DAILY PRN glucagon 3 mg/actuation (Baqsimi) mg intranasal hydrocodone-acetaminophen 5-325 mg 1 tab PO DAILY PRN 30 days insulin aspart U-100 70 units subcut DAILY insulin lispro (Humalog U-100 Insulin) 1 sliding scale dose subcut USEASDIRECTD ipratropium-albuterol 0.5 mg-3 mg(2.5 mg base)/3 mL 3 mL inhalation Q6-8H PRN 30 days lactulose 20 grams (30 mL) PO DAILY PRN lisinopril 40 mg PO DAILY metoclopramide HCl (Reglan) 10 mg PO Q6H PRN mirabegron ER (Myrbetriq) 25 mg PO DAILY 90 days potassium citrate ER 10 mEq PO TID rosuvastatin 40 mg PO DAILY sildenafil (Viagra) 100 mg PO DAILY PRN simethicone (Gas Relief (simethicone)) 125 mg PO BEDTIME Spiriva with HandiHaler (tiotropium bromide) 1 cap inhalation DAILY NS tamsulosin 0.4 mg PO DAILY 90 days Do you need a note to return to daycare/school/sports/work: No HPI Cough HPI Details GAVIOTA is a very pleasant 63 years old gentleman known to have chronic obstructive pulmonary disorder. He has remained very stable, remains mostly in the house during winter months. Luckily he has had no respiratory infection. Continues to use his inhalers regularly. He does use albuterol 1 or 2 puffs before he goes to sleep , then during the night he sleeps good. He is nonsmoker . [facility] Medical History Tinea pedis, left COPD exacerbation Hx of fracture of femur Eczema Cholelithiasis Carpal tunnel syndrome Ankle fracture Diabetes mellitus type 1 Chronic kidney disease (CKD) stage G2/A3, mildly decreased glomerular filtration rate (GFR) between 60-89 mL/min/1.73 square meter and albuminuria creatinine ratio greater than 300 mg/g Hypercholesterolemia Diabetic neuropathy COPD (chronic obstructive pulmonary disease) Coronary artery disease Hypertension Surgical History Hx of colonoscopy Hx of eye surgery Hx of appendectomy H/O umbilical hernia repair History of cholecystectomy History of elbow surgery History of carpal tunnel release Family History Father Hypertension Stroke CVD (cerebrovascular disease) Mother Hypertension CVD (cerebrovascular disease) Diabetes Sister HX: breast cancer Paternal Grandfather Colon cancer Social History Housing: House Alcohol intake: former Patient Tobacco Use Status: Former Tobacco user Tobacco use type: Cigarette e-Cigarette/Vaping Use: Never Used Second Hand Smoke Exposure: No Substance Use Type: Marijuana service: No Current occupational status: disabled Cognitive needs: No Hearing needs: No Vision needs: Yes Review of Systems Const All systems reviewed & are unremarkable except as noted in HPI and below Eyes Reports no additional complaints ENT Reports nasal congestion (Only mild, off and on) Card Denies irregular heart rhythm and Denies leg edema Resp Reports as per HPI GI Reports dyspepsia (Mild) Reports erectile dysfunction and Reports urinary hesitancy Musc Reports back pain (Mild) Skin/Breast Reports system reviewed and no additional complaints, except as documented Neuro Reports no additional complaints Psych Reports no additional complaints Physical Exam Vital Signs: Last Vital Signs Pulse 75 10/23/23 14:04 BP 104/62 10/23/23 14:04 Pulse Ox 96 10/23/23 14:04 Oxygen Delivery Method Room Air 10/23/23 14:04 BMI result Body Mass Index 21.8 Const General: comfortable (BUT HAS FREQUENT COUGH), no acute distress, alert and awake Orientation/consciousness: patient oriented x3 HEENT Head: Yes normal to inspection General nose exam: No nasal polyps present and No nasal discharge present Face and sinus: Yes sinuses nontender Mouth: oropharynx normal Throat: Yes posterior oropharynx normal Eyes General: appearance normal, both eyes and all related structures Neck Neck: Yes normal visual inspection, Yes no lymphadenopathy, Yes trachea midline and Yes no JVD Thyroid: Thyroid normal Chest Chest palpation & inspection: normal inspection of the chest, normal palpation of entire chest wall and no tenderness Resp Other: Percussion note hyper-resonant, Breath sounds are distant with prolonged expiratory phase. No wheezes or rhonchi are heard. Cardio Palpation: normal PMI Rate: regular rate Rhythm: regular rhythm Heart sounds: no gallops and no murmurs GI Palpation (GI): Soft to palpation, nontender, No hepatosplenomegaly present and no masses Auscultation: normal bowel sounds Back/Spine/Pelvis Thoracic/Lumbar Spine: thoracic and lumbar spine normal to inspection Skin General skin exam: no rashes or lesions noted Neuro General: patient oriented x3 and no focal motor deficits Cranial nerves: Yes CN's II-XII intact bilaterally Extrem General: Yes normal to inspection, Yes no clubbing, cyanosis or edema and Yes no calf tenderness Psych Appearance: grossly normal and well kempt Speech and movement: Normal speech and movement present Assessment & Plan Assessment & Plan (1) COPD (chronic obstructive pulmonary disease): Comment: HE IS A KNOWN CASE OF SEVERE COPD, REMAINS STABLE, DOING VERY WELL. Code(s): J44.9 - Chronic obstructive pulmonary disease, unspecified Qualifiers: COPD type: emphysema Emphysema type: unspecified Qualified Code(s): J43.9 - Emphysema, unspecified Plan: TX : SPIRIVA HANDIHALER ONE INH DAILY BREO 100 -25 ONE INH DAILY MUCINEX 1200 MG B.I.D. PRN ADVISED TO DRINK PLENTY OF FLUIDS. IPRATROPIUM/ALBUTEROL SOLUTION IN THE NEBULIZER Q 6 HOURS P.R.N. Coding Level of Care Code Est Pt Level 3 (19764) Diagnoses Pulmonary emphysema, unspecified emphysema type J43.9 COPD type: emphysema Emphysema type: unspecified
[2023-10-23 14:04] VITALS: BP 104/62; PULSE 75; O2SAT 96; BMI 21.8
== END 2023-10-23 14:23 | disposition home or self-care (01) ==
PROVIDERS: PCP Internal Medicine; Visit Provider Internal Medicine
DX: J43.9 Emphysema, unspecified (principal)
CPT/HCPCS: 99213

== ENCOUNTER → 2023-10-23 14:00 | Outpatient (BNVA) | payer MEDICARE, MEDICAID, SELFPAY | PROVIDERS: PCP Internal Medicine; Visit Provider Internal Medicine | DX: J43.9 Emphysema, unspecified (principal) | CPT/HCPCS: 99212 ==

== ENCOUNTER 2023-11-01 15:22 | Outpatient (AMB) | payer MEDICARE, MEDICAID, SELFPAY ==
[2023-11-01 15:23] VITALS: BP 108/66; PULSE 69; O2SAT 99; BMI 22.0
--- NOTE | 2023-11-01 15:23 | A.OFFPC_ITS ---
Vital Signs 11/01/23 15:23 Height 5 ft 3 in Weight 124 lb BMI 22.0 BP 108/66 Blood Pressure Location Lt brachial Position Sitting Pulse 69 Pulse Source Pulse Oximeter Pulse Oximetry (%) 99 Oxygen Delivery Method Room Air Intake Visit Reasons: hyperlipidemia, IFG Intake Note: Patient is here to follow up. A1C 7.7 done at [employer] Required: No Allergies adalimumab [From Humira] Adverse Reaction (Verified 11/01/23 15:30) sleepy pregabalin [From Lyrica] Adverse Reaction (Verified 11/01/23 15:30) Dizzyness Tobacco use date assessed: 11/01/23 Fall risk assessment: No Falls in past year Last assessed Fall Risk: 11/01/23 Dental Screening Dental Screen Date: 11/01/23 Did you have a dental visit in the last 12 months?: Yes Did you have a dental problem in the last 6 months where you did not have access to dental care?: No Was dental information given to patient?: Patient has dentist HPI hyperlipidemia, IFG HPI Details 63-year-old male with type 1 diabetes me llitus chronic kidney disease hypertension coronary artery disease COPD hypercholesterolemia BPH last seen in July 2023. Patient's colonoscopy is up-to-date review of the notes has been follow-up with Pulmonary for chronic cough known COPD severe on Spiriva Breo advise increasing fluids and placed on nebulizers also. Patient also follows up with Nephrology stable renal function blood pressure under control advised to increase carvedilol to 12.5 mg twice a day continue with Denis inhibitor advised to increase oral fluids. Patient did have some ultrasound of the kidneys recently showing a cyst in the mid left kidney but large postvoid residual as well as enlarged prostate pre void 110 post void 103 prostate is enlarged to 52 cc patient is presently on tamsulosin Motegrity and bethanechol [facility] Medical History (Updated 11/01/23 @ 15:54 by Rhea Martinez MD) Urinary frequency COPD exacerbation Bloating Hypoglycemia Chronic constipation Tinea pedis, left Hx of fracture of femur Eczema Cholelithiasis Carpal tunnel syndrome Ankle fracture Diabetes mellitus type 1 Chronic kidney disease (CKD) stage G2/A3, mildly decreased glomerular filtration rate (GFR) between 60-89 mL/min/1.73 square meter and albuminuria creatinine ratio greater than 300 mg/g Hypercholesterolemia Diabetic neuropathy COPD (chronic obstructive pulmonary disease) Coronary artery disease Hypertension Surgical History Hx of colonoscopy Hx of eye surgery Hx of appendectomy H/O umbilical hernia repair History of cholecystectomy History of elbow surgery History of carpal tunnel release Family History Father Hypertension Stroke CVD (cerebrovascular disease) Mother Hypertension CVD (cerebrovascular disease) Diabetes Sister HX: breast cancer Paternal Grandfather Colon cancer Social History Housing: House Alcohol intake: former Patient Tobacco Use Status: Former Tobacco user Tobacco use type: Cigarette e-Cigarette/Vaping Use: Never Used Second Hand Smoke Exposure: No Substance Use Type: Marijuana service: No Current occupational status: disabled Cognitive needs: No Hearing needs: No Vision needs: Yes Questionnaire Thrive Questionnaire Date Thrive assessed: 10/23/22 BARRY-7 AMB Questionnaire BARRY-7 Date BARRY - 7 assessed: 07/30/23 Source: Developed by Drs. Dylan Mendez, Arabella Griffin, Mick Valero and colleagues, with an educational teto from [employer]. Physical exam (Primary Care) Vital Signs: Last Vital Signs Pulse 69 11/01/23 15:23 BP 108/66 11/01/23 15:23 Pulse Ox 99 11/01/23 15:23 Oxygen Delivery Method Room Air 11/01/23 15:23 BMI result Body Mass Index 22.0 Tobacco/Smoking Status: Tobacco use Status Tobacco use date assessed 11/01/23 11/01/23 15:33 Patient Tobacco Use Status Former Tobacco user 11/01/23 15:24 Tobacco use type Cigarette 11/01/23 15:24 e-Cigarette/Vaping Use Never Used 11/01/23 15:24 Thrive Assessment: Date of Thrive Assessment Date Thrive assessed 10/23/22 11/01/23 15:24 Const General: alert; No acute distress Eyes Conjunctivae: conjunctivae normal Resp Auscultation: clear to auscultation bilaterally Cardio Rate: regular rate Rhythm: regular rhythm GI Inspection: Yes normal to inspection Extrem General: Yes normal to inspection and No edema Assessment and Plan Assessment & Plan (1) Type 1 diabetes mellitus with chronic kidney disease: Code(s): E10.22 - Type 1 diabetes mellitus with diabetic chronic kidney disease Plan: Continue to follow-up with endocrinology hemoglobin A1c goal of less than 7.0 (2) Urinary retention with incomplete bladder emptying: Code(s): R33.9 - Retention of urine, unspecified Plan: Patient has been seen by Urology and on medications. (3) BPH (benign prostatic hyperplasia): Code(s): N40.0 - Benign prostatic hyperplasia without lower urinary tract symptoms Qualifiers: Lower urinary tract symptom presence: symptoms present Lower urinary tract symptom detail: weak urinary stream Qualified Code(s): N40.1 - Benign prostatic hyperplasia with lower urinary tract symptoms; R39.12 - Poor urinary stream Plan: Continue to follow-up with urology (4) Chronic kidney disease (CKD) stage G2/A3, mildly decreased glomerular filtration rate (GFR) between 60-89 mL/min/1.73 square meter and albuminuria creatinine ratio greater than 300 mg/g: Code(s): N18.2 - Chronic kidney disease, stage 2 (mild) Plan: Control the cholesterol, weight, blood pressure, diabetes patient follows up with nephrology adjusted blood pressure medication carvedilol (5) Hypercholesterolemia: Code(s): E78.00 - Pure hypercholesterolemia, unspecified Plan: Avoid fried foods, chicken skin, eggs, butter margarine, pastries and meat. Be it pork or beef they have a lot of cholesterol LDL goal of less than 70 and triglyceride of less than 150. October 2023 last blood work (6) COPD (chronic obstructive pulmonary disease): Comment: HE IS A KNOWN CASE OF SEVERE COPD, REMAINS STABLE, DOING VERY WELL. Code(s): J44.9 - Chronic obstructive pulmonary disease, unspecified Qualifiers: COPD type: emphysema Emphysema type: unspecified Qualified Code(s): J43.9 - Emphysema, unspecified Plan: Continue with the inhalers follows up with Pulmonary (7) Coronary artery disease: Code(s): I25.10 - Atherosclerotic heart disease of [place] coronary artery without angina pectoris Qualifiers: Coronary Disease-Associated Artery/Lesion type: [place] artery [place] vs. transplanted heart: [place] heart Associated angina: without angina Qu alified Code(s): I25.10 - Atherosclerotic heart disease of [place] coronary artery without angina pectoris Plan: Control the cholesterol, weight, blood pressure, diabetes continue with aspirin 81 mg once a day (8) Hypertension: Code(s): I10 - Essential (primary) hypertension Qualifiers: Hypertension type: essential hypertension Qualified Code(s): I10 - Essential (primary) hypertension Plan: Continue with blood pressure medication. Decrease salt intake and exercise carvedilol 12.5 mg twice a day lisinopril 40 mg once a day Coding Level of Care Code Est Pt Level 4 (86934) Diagnoses Type 1 diabetes mellitus with chronic kidney disease E10.22 Urinary retention with incomplete bladder emptying R33.9 Benign prostatic hyperplasia with weak urinary stream N40.1; R39.12 Lower urinary tract symptom presence: symptoms present Lower urinary tract symptom detail: weak urinary stream Chronic kidney disease (CKD) stage G2/A3, mildly decreased glomerular filtration rate (GFR) between 60-89 mL/min/1.73 square meter and albuminuria creatinine ratio greater than 300 mg/g N18.2 Hypercholesterolemia E78.00 Pulmonary emphysema, unspecified emphysema type J43.9 COPD type: emphysema Emphysema type: unspecified Coronary artery disease involving [place] coronary artery of [place] heart without angina pectoris I25.10 Coronary Disease-Associated Artery/Lesion type: [place] artery [place] vs. transplanted heart: [place] heart Associated angina: without angina Essential hypertension I10 Hypertension type: essential hypertension
== END 2023-11-01 16:05 | disposition home or self-care (01) ==
PROVIDERS: PCP Internal Medicine; Visit Provider Internal Medicine
DX: E10.22 Type 1 diabetes mellitus with diabetic chronic kidney disease (principal); I12.9 Hypertensive chronic kidney disease with stage 1 through stage 4 chronic kidney disease, or unspecified chronic kidney disease; J43.9 Emphysema, unspecified; N18.2 Chronic kidney disease, stage 2 (mild); R33.9 Retention of urine, unspecified; N40.1 Benign prostatic hyperplasia with lower urinary tract symptoms; R39.12 Poor urinary stream; E78.00 Pure hypercholesterolemia, unspecified; I25.10 Atherosclerotic heart disease of native coronary artery without angina pectoris
CPT/HCPCS: 83036; 99214

== ENCOUNTER 2024-02-05 14:13 | Outpatient (AMB) | payer MEDICARE, MEDICAID, SELFPAY ==
[2024-02-05 14:16] VITALS: BP 130/68; PULSE 67; O2SAT 96; BMI 21.6
--- NOTE | 2024-02-05 14:16 | MHC.PC.OV ---
Vital Signs 02/05/24 14:16 Height 5 ft 3 in Weight 122 lb 0.4 oz BMI 21.6 BP 130/68 Blood Pressure Location Lt brachial Position Sitting Pulse 67 Pulse Source Pulse Oximeter Pulse Oximetry (%) 96 Oxygen Delivery Method Room Air Intake Visit Reasons: DM, BPH Intake Note: A1C 7.9 [employer] Safety Professor Required: No Allergies adalimumab [From Humira] Adverse Reaction (Verified 02/05/24 14:16) sleepy pregabalin [From Lyrica] Adverse Reaction (Verified 02/05/24 14:16) Dizzyness Medication List - Last Reconciled 02/05/24 by Rhea Hamm Po, albuterol sulfate 90 mcg/actuation (Ventolin HFA) 2 puffs PO Q4-6H PRN aspirin (Adult Aspirin Regimen) 81 mg PO DAILY PRN bethanechol chloride 50 mg PO BID 90 days Breo Ellipta 100-25 mcg/dose (fluticasone furoate-vilanterol) 1 ea PO DAILY NS carbamazepine ER 200 mg PO BEDTIME carvedilol 12.5 mg PO BID gabapentin 100 mg PO DAILY PRN glucagon 3 mg/actuation (Baqsimi) mg intranasal hydrocodone-acetaminophen 5-325 mg 1 tab PO DAILY PRN 30 days insulin aspart U-100 70 units subcut DAILY insulin lispro (Humalog U-100 Insulin) 1 sliding scale dose subcut USEASDIRECTD ipratropium-albuterol 0.5 mg-3 mg(2.5 mg base)/3 mL 3 mL inhalation Q6-8H PRN 30 days lactulose 20 grams (30 mL) PO DAILY PRN lisinopril 40 mg PO DAILY metoclopramide HCl (Reglan) 10 mg PO Q6H PRN mirabegron ER (Myrbetriq) 25 mg PO DAILY 90 days potassium citrate ER 10 mEq PO TID rosuvastatin 40 mg PO DAILY sennosides-docusate sodium 8.6-50 mg (Senna Plus) 2 tab-caps (2 x 8.6-50 mg) PO BEDTIME sildenafil (Viagra) 100 mg PO DAILY PRN simethicone (Gas Relief (simethicone)) 125 mg PO BEDTIME Spiriva with HandiHaler (tiotropium bromide) 1 cap inhalation DAILY NS tamsulosin 0.4 mg PO DAILY 90 days Tobacco use date assessed: 02/05/24 Fall risk assessment: No Falls in past year Last assessed Fall Risk: 02/05/24 Dental Screening Dental Screen Date: 11/01/23 HPI DM, BPH HPI Details 63-year-old male with diabetes mellitus type 1 with chronic kidney disease BPH hypercholesterolemia COPD coronary artery disease and hypertension coming in for follow-up last seen in 10/23/2023. Patient does have Endocrinology take care of the diabetes and the last hemoglobin A1c in 12/22/2023 7.9. Patient does follow-up with Podiatry also. [facility] Medical History (Updated 11/01/23 @ 15:54 by Rhea Martinez MD) Urinary frequency COPD exacerbation Bloating Hypoglycemia Chronic constipation Tinea pedis, left Hx of fracture of femur Eczema Cholelithiasis Carpal tunnel syndrome Ankle fracture Diabetes mellitus type 1 Chronic kidney disease (CKD) stage G2/A3, mildly decreased glomerular filtration rate (GFR) between 60-89 mL/min/1.73 square meter and albuminuria creatinine ratio greater than 300 mg/g Hypercholesterolemia Diabetic neuropathy COPD (chronic obstructive pulmonary disease) Coronary artery disease Hypertension Surgical History Hx of colonoscopy Hx of eye surgery Hx of appendectomy H/O umbilical hernia repair History of cholecystectomy History of elbow surgery History of carpal tunnel release Family History Father Hypertension Stroke CVD (cerebrovascular disease) Mother Hypertension CVD (cerebrovascular disease) Diabetes Sister HX: breast cancer Paternal Grandfather Colon cancer Social History Housing: House Alcohol intake: former Patient Tobacco Use Status: Former Tobacco user Tobacco use type: Cigarette e-Cigarette/Vaping Use: Never Used Second Hand Smoke Exposure: No Substance Use Type: Marijuana service: No Current occupational status: disabled Cognitive needs: No Hearing needs: No Vision needs: Yes Questionnaire Thrive Questionnaire Date Thrive assessed: 02/05/24 I am a: Patient What is your living situation today?: I have a steady place to live Within the past 12 months, did the food you bought not last and you didn't have the money to get more?: Never true Within the past 12 months, did you worry whether your food would run out before you got money to buy more?: Never true Do you have trouble paying for medicines?: No Do you have trouble getting transportation to medical appointments?: No Do you have trouble paying your heating and electricity bill?: No Do you have trouble taking care of your child, family member or friend?: No Do you have trouble with day-to-day activities such as bathing, preparing meals, shopping, managing finances, etc.?: No Are you currently unemployed and looking for a job?: No Are you interested in more education?: No Please select the resources that you would like help with: None Currently or been in a relationship where the following occur: no concerns reported THRIVE Score: 0 AUDIT C Alcohol Use Questionnaire (AUDIT-C) 1. How often do you have a drink containing alcohol?: Never 3. How often do you have six or more drinks on one occasion?: Never Total Score: 0 Score Reviewed/Action Taken: No BARRY-7 AMB Questionnaire BARRY-7 Date BARRY - 7 assessed: 02/05/24 Feeling nervous, anxious, or on edge: 0 = Not at all Not being able to stop or control worryin = Not at all Worrying too much about different things: 0 = Not at all Trouble relaxin = Not at all Being so restless that it is hard to sit still: 0 = Not at all Becoming easily annoyed or irritable: 0 = Not at all Feeling afraid as if something awful might happen: 0 = Not at all Total BARRY-7 score (0-4 normal; 5-9 mild; 10-14 moderate; 15-21 severe): 0 Source: Developed by Drs. Dylan Mendez, Arabella Griffin, Mick Valero and colleagues, with an educational teto from [employer]. BARRY-7 Assessment Billing BARRY-7 Assessment Tool: BARRY-7 Assessment 83688 Physical exam (Primary Care) Vital Signs: Last Vital Signs Pulse 67 02/05/24 14:16 BP 130/68 02/05/24 14:16 Pulse Ox 96 02/05/24 14:16 Oxygen Delivery Method Room Air 02/05/24 14:16 BMI result Body Mass Index 21.6 Tobacco/Smoking Status: Tobacco use Status Tobacco use date assessed 02/05/24 02/05/24 14:23 Patient Tobacco Use Status Former Tobacco user 02/05/24 14:23 Tobacco use type Cigarette 02/05/24 14:23 e-Cigarette/Vaping Use Never Used 02/05/24 14:23 Thrive Assessment: Date of Thrive Assessment Date Thrive assessed 02/05/24 02/05/24 14:23 Currently or been in a relationship where the following occur: no concerns reported Const General: alert; No acute distress Eyes Conjunctivae: conjunctivae normal Resp Auscultation: clear to auscultation bilaterally Cardio Rate: regular rate Rhythm: regular rhythm GI Inspection: Yes normal to inspection Extrem General: Yes normal to inspection and No edema Assessment and Plan Assessment & Plan (1) Diabetes mellitus type 1: Comment: Insulin Pump Dr. Rae Camargo Code(s): E10.9 - Type 1 diabetes mellitus without complications Qualifiers: Diabetes mellitus complication detail: with polyneuropathy Diabetes mellitus complication status: with neurologic complications Qualified Code(s): E10.42 - Type 1 diabetes mellitus with diabetic polyneuropathy Plan: Decrease the amount of carbohydrate intake, pasta, bread, rice and potatoes are all sugar and that is aside from all the sweet stuff, remember that fruits are good but they are Sweet also. Hemoglobin A1c goal of less than 7.0 patient is being followed up by Endocrinology on insulin pump presently (2) Chronic kidney disease (CKD) stage G2/A3, mildly decreased glomerular filtration rate (GFR) between 60-89 mL/min/1.73 square meter and albuminuria creatinine ratio greater than 300 mg/g: Code(s): N18.2 - Chronic kidney disease, stage 2 (mild) Plan: Keep well hydrated avoid NSAIDs (3) Diabetic neuropathy: Code(s): E11.40 - Type 2 diabetes mellitus with diabetic neuropathy, unspecified Qualifiers: Diabetes mellitus complication detail: diabetic polyneuropathy Diabetes mellitus type: type 1 Qualified Code(s): E10.42 - Type 1 diabetes mellitus with diabetic polyneuropathy Plan: Narcotic pain meds: Is being prescribed with the understanding that these medications are potentially addictive and should be used only when absolutely necessary and must always be secured. Any remaining pills should be safely disposed off appropriately. Patient is advised that narcotics can impaired judgment and one should not drive or operate heavy machinery while taking these medications. Never share these medications with anybody and do not leave them unattended. They will not be replaced under any circumstances. (4) COPD (chronic obstructive pulmonary disease): Comment: HE IS A KNOWN CASE OF SEVERE COPD, REMAINS STABLE, DOING VERY WELL. Code(s): J44.9 - Chronic obstructive pulmonary disease, unspecified Qualifiers: COPD type: emphysema Emphysema type: unspecified Qualified Code(s): J43.9 - Emphysema, unspecified Plan: Continue with Breo albuterol and Spiriva (5) Hypertension: Code(s): I10 - Essential (primary) hypertension Qualifiers: Hypertension type: essential hypertension Qualified Code(s): I10 - Essential (primary) hypertension Plan: Continue with blood pressure medication. Decrease salt intake and exercise patient on lisinopril 40 mg once a day carvedilol 12.5 mg twice a day (6) Coronary artery disease: Code(s): I25.10 - Atherosclerotic heart disease of [place] coronary artery without angina pectoris Qualifiers: Associated angina: without angina Coronary Disease-Associated Artery/Lesion type: [place] artery [place] vs. transplanted heart: [place] heart Qualified Code(s): I25.10 - Atherosclerotic heart disease of [place] coronary artery without angina pectoris Plan: Control the cholesterol, weight, blood pressure, diabetes on aspirin 81 mg once a day (7) BPH (benign prostatic hyperplasia): Code(s): N40.0 - Benign prostatic hyperplasia without lower urinary tract symptoms Qualifiers: Lower urinary tract symptom detail: weak urinary stream Lower urinary tract symptom presence: symptoms present Qualified Code(s): N40.1 - Benign prostatic hyperplasia with lower urinary tract symptoms; R39.12 - Poor urinary stream Plan: Presently taking bethanechol mirabegron and tamsulosin Orders: Orders Hemoglobin A1c Today E10.42 - Type 1 diabetes mellitus with diabetic polyneuropathy Thyroid Stimulating Hormone Today E10.42 - Type 1 diabetes mellitus with diabetic polyneuropathy Creatinine Urine Today E10.42 - Type 1 diabetes mellitus with diabetic polyneuropathy, E11.65 - Type 2 diabetes mellitus with hyperglycemia Lipid Panel Today E10.42 - Type 1 diabetes mellitus with diabetic polyneuropathy, E78.00 - Pure hypercholesterolemia, unspecified Prostate Specific Antigen Scr Today E10.42 - Type 1 diabetes mellitus with diabetic polyneuropathy AMB Hemoglobin A1c Today E10.22 - Type 1 diabetes mellitus with diabetic chronic kidney disease Complete Blood Count Auto Diff Today E10.42 - Type 1 diabetes mellitus with diabetic polyneuropathy Comprehensive Met. Panel Today E10.42 - Type 1 diabetes mellitus with diabetic polyneuropathy Free T4 (Free Thyroxine) Today E10.42 - Type 1 diabetes mellitus with diabetic polyneuropathy Microalbumin, Random (w Creat) Today E10.42 - Type 1 diabetes mellitus with diabetic polyneuropathy, E11.65 - Type 2 diabetes mellitus with hyperglycemia Vitamin B12 and Folate Today E10.42 - Type 1 diabetes mellitus with diabetic polyneuropathy Medications: New sennosides-docusate sodium 8.6-50 mg (Senna Plus) 2 tab-caps (2 x 8.6-50 mg) PO BEDTIME 60 tabs 3RF K59.00 - Constipation, unspecified Coding Level of Care Code Est Pt Level 4 (23172) Complex EM visit Add On G2211 Diagnoses Type 1 diabetes mellitus with diabetic polyneuropathy E10.42 Diabetes mellitus complication detail: with polyneuropathy Diabetes mellitus complication status: with neurologic complications Chronic kidney disease (CKD) stage G2/A3, mildly decreased glomerular filtration rate (GFR) between 60-89 mL/min/1.73 square meter and albuminuria creatinine ratio greater than 300 mg/g N18.2 Diabetic polyneuropathy associated with type 1 diabetes mellitus E10.42 Diabetes mellitus complication detail: diabetic polyneuropathy Diabetes mellitus type: type 1 Pulmonary emphysema, unspecified emphysema type J43.9 COPD type: emphysema Emphysema type: unspecified Essential hypertension I10 Hypertension type: essential hypertension Coronary artery disease involving [place] coronary artery of [place] heart without angina pectoris I25.10 Associated angina: without angina Coronary Disease-Associated Artery/Lesion type: [place] artery [place] vs. transplanted heart: [place] heart Benign prostatic hyperplasia with weak urinary stream N40.1; R39.12 Lower urinary tract symptom detail: weak urinary stream Lower urinary tract symptom presence: symptoms present Additional Codes BARRY-7 Assessment Billing - BARRY-7 Assessment Tool: BARRY-7 Assessment [id number] ([id number])
== END 2024-02-05 15:08 | disposition home or self-care (01) ==
PROVIDERS: PCP Internal Medicine; Visit Provider Internal Medicine
DX: E10.42 Type 1 diabetes mellitus with diabetic polyneuropathy (principal); I12.9 Hypertensive chronic kidney disease with stage 1 through stage 4 chronic kidney disease, or unspecified chronic kidney disease; N18.2 Chronic kidney disease, stage 2 (mild); J43.9 Emphysema, unspecified; I25.10 Atherosclerotic heart disease of native coronary artery without angina pectoris; N40.1 Benign prostatic hyperplasia with lower urinary tract symptoms; R39.12 Poor urinary stream
CPT/HCPCS: 99214; G2211

== ENCOUNTER 2024-02-28 10:16 | Outpatient (REF) | payer MEDICARE, MEDICAID, SELFPAY ==
[2024-02-28 21:28] LABS: Prostate Specific Antigen 1.38 ng/mL (<0.05-4.0)
== END 2024-02-28 10:17 | disposition home or self-care (01) ==
LOC: HO.HMGCLDS 10:16
PROVIDERS: PCP Internal Medicine; Visit Provider Nurse Practitioner Family
DX: R35.0 Frequency of micturition (principal); R33.9 Retention of urine, unspecified; N40.0 Benign prostatic hyperplasia without lower urinary tract symptoms; Z12.5 Encounter for screening for malignant neoplasm of prostate
CPT/HCPCS: 36415; 84153

== ENCOUNTER 2024-02-29 13:46 | Outpatient (AMB) | payer MEDICARE, MEDICAID, SELFPAY ==
--- NOTE | 2024-02-29 13:47 | A.OFFVIS_ITS ---
Intake Visit Reasons: PSA/US Intake Note: Patient is present for PSA/US Urology Medication:tamsulosin,bethanechol chloride,myrbetriq Antibiotic Allergy:none Blood Thinner:aspirin Patient Care Secretary Required: No Allergies adalimumab [From Humira] Adverse Reaction (Verified 02/29/24 14:25) sleepy pregabalin [From Lyrica] Adverse Reaction (Verified 02/29/24 14:25) Dizzyness Medication List - Last Reconciled 02/29/24 by GERMÁN Toussaint- albuterol sulfate 90 mcg/actuation (Ventolin HFA) 2 puffs PO Q4-6H PRN aspirin (Adult Aspirin Regimen) 81 mg PO DAILY PRN bethanechol chloride 50 mg PO BID 90 days Breo Ellipta 100-25 mcg/dose (fluticasone furoate-vilanterol) 1 ea PO DAILY NS carbamazepine ER 200 mg PO BEDTIME carvedilol 12.5 mg PO BID gabapentin 100 mg PO DAILY PRN glucagon 3 mg/actuation (Baqsimi) mg intranasal hydrocodone-acetaminophen 5-325 mg 1 tab PO DAILY PRN 30 days insulin aspart U-100 70 units subcut DAILY insulin lispro (Humalog U-100 Insulin) 1 sliding scale dose subcut USEASDIRECTD ipratropium-albuterol 0.5 mg-3 mg(2.5 mg base)/3 mL 3 mL inhalation Q6-8H PRN 30 days lactulose 20 grams (30 mL) PO DAILY PRN lisinopril 40 mg PO DAILY metoclopramide HCl (Reglan) 10 mg PO Q6H PRN mirabegron ER (Myrbetriq) 25 mg PO DAILY 90 days potassium citrate ER 10 mEq PO TID rosuvastatin 40 mg PO DAILY sennosides-docusate sodium 8.6-50 mg (Senna Plus) 2 tab-caps (2 x 8.6-50 mg) PO BEDTIME sildenafil (Viagra) 100 mg PO DAILY PRN simethicone (Gas Relief (simethicone)) 125 mg PO BEDTIME Spiriva with HandiHaler (tiotropium bromide) 1 cap inhalation DAILY NS tamsulosin 0.4 mg PO DAILY 90 days HPI Comments Details: Simone is a very pleasant 63-year-old male patient of Dr. Martinez. He has a past medical history of carpal tunnel syndrome, chronic kidney disease, COPD, coronary artery disease, diabetes type 1, diabetic neuropathy, eczema, hypercholesteremia, and hypertension. He presents to the office today for follow-up of his incomplete bladder emptying, weak stream, erectile dysfunction, overactive bladder, and diabetic cystopathy. In discussion with the patient today he reports to be doing and feeling well. He reports to be happy with his current voiding parameters on 0.4 mg of Flomax daily, bethanechol 50 mg b.i.d. and Myrbetriq 25 mg daily. In office urinalysis results reviewed with the patient today. PVR 63 mL's. Recent retroperitoneal ultrasound results reviewed with the patient today. Bilateral kidneys with no calculi or hydronephrosis. There is a 1.0 cm simple cyst in the lower pole of the right kidney that requires no imaging follow-up per radiology report. There is a 1.3 cm septated cyst in the mid left kidney. The bladder is partially distended. Bladder ureteral jets are demonstrated. Pre void bladder volume is approximately 110 mL. Postvoid bladder volume is approximately 100 mL. The prostate is enlarged and measures approximately 52 mL. In office urinalysis results reviewed with the patient today. PVR 63ml's. He continues with good emptying with combination therapy. When asked he denies any bothersome urinary issues or concerns. He reports following up with Nephrology and has started potassium supplements. He otherwise offers no other issues or concerns at this time. PSAs are as follows: 10/26 1.3, 02/24 1.4 PREVIOUS OFFICE NOTE----- BPH with incomplete emptying progressive symptoms - urgency frequency with leakage tried tamsulosin 0.4 with minimal impact background of type 1 diabetes since 6 years old PSA 07/24 1.4, 10/26 1.3 symptoms at presentation - weakness of stream, incomplete emptying, hesitancy Cystoscopy - 03/23 small prostate with high residual Imaging - 09/24 CT scan 5 mm right stone Overactive bladder Diabetic cystopathy Initial symptoms include nocturia x3 Good response to Myrbetriq with decrease in nocturia to 1 time per night [facility] Medical History (Updated 03/02/24 @ 16:17 by MON[place] Toussaint) Urinary frequency COPD exacerbation Bloating Hypoglycemia Chronic constipation Tinea pedis, left Hx of fracture of femur Eczema Cholelithiasis Carpal tunnel syndrome Ankle fracture Diabetes mellitus type 1 Chronic kidney disease (CKD) stage G2/A3, mildly decreased glomerular filtration rate (GFR) between 60-89 mL/min/1.73 square meter and albuminuria creatinine ratio greater than 300 mg/g Hypercholesterolemia Diabetic neuropathy COPD (chronic obstructive pulmonary disease) Coronary artery disease Hypertension Surgical History Hx of colonoscopy Hx of eye surgery Hx of appendectomy H/O umbilical hernia repair History of cholecystectomy History of elbow surgery History of carpal tunnel release Family History Father Hypertension Stroke CVD (cerebrovascular disease) Mother Hypertension CVD (cerebrovascular disease) Diabetes Sister HX: breast cancer Paternal Grandfather Colon cancer Social History Housing: House Alcohol intake: former Patient Tobacco Use Status: Former Tobacco user Tobacco use type: Cigarette e-Cigarette/Vaping Use: Never Used Second Hand Smoke Exposure: No Substance Use Type: Marijuana service: No Current occupational status: disabled Cognitive needs: No Hearing needs: No Vision needs: Yes Results AMB Urinalysis, Automated UA Leukoctes 0 Christine/uL Last Edit by JEB Gomez on 02/29/24 14:04 UA Nitrite Negative Last Edit by JEB Gomez on 02/29/24 14:04 UA Urobilinogen 0.2 mg/dL Last Edit by JEB Gomez on 02/29/24 14:0 4 UA Protein 30 mg/dL Last Edit by JEB Gomez on 02/29/24 14:04 UA pH 6.5 Last Edit by JEB Gomez on 02/29/24 14:04 UA Blood 10 Stevan/uL Last Edit by JEB Gomez on 02/29/24 14:04 UA Specific Bernice 1.015 Last Edit by JEB Gomez on 02/29/24 14: 04 UA Ketone Negative Last Edit by JEB Gomez on 02/29/24 14:04 UA Bilirubin 0 mg/dL Last Edit by JEB Gomez on 02/29/24 14:04 UA Glucose 0 mg/dL Last Edit by JEB Gomez on 02/29/24 14:04 Results Reviewed Results Reviewed: Laboratory Last Values Urine pH (Auto) 6.5 02/29/24 14:03 Specific Bernice (Auto) 1.015 02/29/24 14:03 Urine Protein (Auto) 30 mg/dL 02/29/24 14:03 Glucose (UA)(Auto) 0 mg/dL 02/29/24 14:03 Urine Ketones (Auto) Negative 02/29/24 14:03 Urine Blood (Auto) 10 Stevan/uL 02/29/24 14:03 Urine Nitrite (Auto) Negative 02/29/24 14:03 Urine Bilirubin (Auto) 0 mg/dL 02/29/24 14:03 Urine Urobilinogen (Auto) 0.2 mg/dL 02/29/24 14:03 Leukocyte Esterase (Auto) 0 Christine/uL 02/29/24 14:03 Date of Service: 09/12/23 EXAMINATION: US RETROPERITONEAL COMPLETE (RENAL) FINDINGS: RIGHT KIDNEY: 9.1 x 5.6 x 5.1 cm (SAG x AP x TRV). The kidney is normal in size and contour. No renal calculi or hydronephrosis. There is 0.8 x 0.6 x 1.0 cm simple lower pole cyst for which no imaging follow-up is recommended. No obvious calculus is seen. There are multiple echogenic foci but these have not twinkle artifact or shadowing. LEFT KIDNEY: 9.3 x 5.0 x 4.9 cm (SAG x AP x TRV). The kidney is normal in size and contour. No renal calculi or hydronephrosis. There is a 1.5 x 1.5 x 1.5 cm simple cyst in the mid kidney which no imaging follow-up is recommended. There is a septated cyst 1.3 x 0.7 x 1.3 cm cyst in the mid kidney. This is difficult to accurately measure. No obvious calculi are seen. There are multiple echogenic foci without twinkle artifact and shadowing. BLADDER: Partially distended. Bilateral ureteral jets are demonstrated. Prevoid bladder volume is 110 mL. Postvoid bladder volume is 103 mL. ADDITIONAL FINDINGS: The prostate is enlarged measuring 52.0 mL. IMPRESSION: 1. 1.3 cm septated cyst in the mid left kidney. This is difficult to accurately measure. 2. Large post void residual. 3. Enlarged prostate. Assessment & Plan Assessment & Plan (1) Renal calculi: Comment: 2020 Code(s): N20.0 - Calculus of kidney Category: Medical (2) Urinary retention with incomplete bladder emptying: Code(s): R33.9 - Retention of urine, unspecified Category: Medical (3) Weak urinary stream: Code(s): R39.12 - Poor urinary stream Category: Medical (4) BPH (benign prostatic hyperplasia): Code(s): N40.0 - Benign prostatic hyperplasia without lower urinary tract symptoms Category: Medical Qualifiers: Lower urinary tract symptom presence: symptoms present Lower urinary tract symptom detail: weak urinary stream Qualified Code(s): N40.1 - Benign prostatic hyperplasia with lower urinary tract symptoms; R39.12 - Poor urinary stream (5) Erectile dysfunction: Code(s): N52.9 - Male erectile dysfunction, unspecified Category: Medical Plan In office urinalysis results reviewed with the patient today; as noted above. PVR 62 mL. Continue Myrbetriq, bethanechol, and Flomax as discussed and prescribed; refill provided. Recent retroperitoneal ultrasound results reviewed with the patient today; as noted above. Recent PSA results reviewed with the patient today; as noted above. Will continue with surveillance monitoring of renal cysts as well as nephrolithiasis. Discussed, educated, and stressed the importance of managing diabetes for improvement in lower urinary tract symptoms, erectile dysfunction, and overall health and well-being. Discussed possible near future in office cystoscopy if symptoms arise and or worsen. Will obtain renal ultrasound in 6 months. Follow-up in 6 months with imaging and PVR; or sooner with any issues, concerns, and or questions. Orders: Orders AMB Urinalysis Automated 02/29/24 Z13.9 - Encounter for screening, unspecified US renal BI 6 Months N20.0 - Calculus of kidney, N28.1 - Cyst of kidney, acquired Patient Instructions: The patient had an opportunity to ask questions regarding the treatment plan. All questions were answered. Physical exam, labs, and imaging were discussed and reviewed in detail. As well as risks, benefits, and discussion of treatment choices. No major barriers to understanding were identified. The patient expressed understanding and agreement with the above treatment plan. The patient was made aware they should contact our office by phone for worsening of their current condition, the appearance of new symptoms, or with any questions or concerns. Compliance is encouraged with any medications and follow up testing that is ordered. It is a privilege to be allowed the opportunity to participate in? your urological care.? Again, if you have any questions or concerns If you have any questions or concerns please do not hesitate to contact me. The office is [phone]. This note is constructed using voice recognition software. While every effort has been made to ensure accuracy hand cigar making supervisor errors may have been included. Yours sincerely, MONTANA Toussaint Coding Level of Care Code Est Pt Level 3 (55353) Diagnoses Renal calculi N20.0 Urinary retention with incomplete bladder emptying R33.9 Weak urinary stream R39.12 Benign prostatic hyperplasia with weak urinary stream N40.1; R39.12 Lower urinary tract symptom presence: symptoms present Lower urinary tract symptom detail: weak urinary stream Erectile dysfunction N52.9
== END 2024-02-29 14:28 | disposition home or self-care (01) ==
PROVIDERS: PCP Internal Medicine; Visit Provider Nurse Practitioner Family
DX: N20.0 Calculus of kidney (principal); N40.1 Benign prostatic hyperplasia with lower urinary tract symptoms; R33.9 Retention of urine, unspecified; R39.12 Poor urinary stream; N52.9 Male erectile dysfunction, unspecified
CPT/HCPCS: 99213

== ENCOUNTER → 2024-02-29 13:46 | Outpatient (BNVA) | payer MEDICARE, MEDICAID, SELFPAY | PROVIDERS: PCP Internal Medicine; Visit Provider Nurse Practitioner Family | DX: N40.1 Benign prostatic hyperplasia with lower urinary tract symptoms (principal); R39.12 Poor urinary stream; R33.9 Retention of urine, unspecified; N20.0 Calculus of kidney; N52.9 Male erectile dysfunction, unspecified | CPT/HCPCS: 81003; 99212 ==

== ENCOUNTER 2024-04-22 13:30 | Outpatient (AMB) | payer MEDICARE, MEDICAID, SELFPAY ==
--- NOTE | 2024-04-22 13:40 | MHC.OFFVIS ---
Vital Signs 04/22/24 13:41 Height 5 ft 3 in Weight 124 lb 8.979 oz BMI 22.1 BP 112/68 Blood Pressure Location Lt brachial Pulse 71 Pulse Source Pulse Oximeter Pulse Oximetry (%) 94 Oxygen Delivery Method Room Air Intake Visit Reasons: Cough Intake Note: pt is here for follow up and states his breathing is good days and bad days, and he has to use the albuterol in am and pm, when it was usually mostly at night. Smooth Plater Required: No Allergies adalimumab [From Humira] Adverse Reaction (Verified 04/22/24 13:48) sleepy pregabalin [From Lyrica] Adverse Reaction (Verified 04/22/24 13:48) Dizzyness Medication List - Last Reconciled 04/22/24 by Mele Emerson MD albuterol sulfate 90 mcg/actuation (Ventolin HFA) 2 puffs PO Q4-6H PRN aspirin (Adult Aspirin Regimen) 81 mg PO DAILY PRN bethanechol chloride 50 mg PO BID 90 days Breo Ellipta 100-25 mcg/dose (fluticasone furoate-vilanterol) 1 ea PO DAILY NS carbamazepine ER 200 mg PO BEDTIME carvedilol 12.5 mg PO BID gabapentin 100 mg PO DAILY PRN glucagon 3 mg/actuation (Baqsimi) mg intranasal hydrocodone-acetaminophen 5-325 mg 1 tab PO DAILY PRN 30 days insulin aspart U-100 70 units subcut DAILY insulin lispro (Humalog U-100 Insulin) 1 sliding scale dose subcut USEASDIRECTD ipratropium-albuterol 0.5 mg-3 mg(2.5 mg base)/3 mL 3 mL inhalation Q6-8H PRN 30 days lactulose 20 grams (30 mL) PO DAILY PRN lisinopril 40 mg PO DAILY metoclopramide HCl (Reglan) 10 mg PO Q6H PRN mirabegron ER (Myrbetriq) 25 mg PO DAILY 90 days potassium citrate ER 10 mEq PO TID rosuvastatin 40 mg PO DAILY sennosides-docusate sodium 8.6-50 mg (Senna Plus) 2 tab-caps (2 x 8.6-50 mg) PO BEDTIME sildenafil (Viagra) 100 mg PO DAILY PRN simethicone (Gas Relief (simethicone)) 125 mg PO BEDTIME Spiriva with HandiHaler (tiotropium bromide) 1 cap inhalation DAILY NS tamsulosin 0.4 mg PO DAILY 90 days Do you need a note to return to daycare/school/sports/work: No HPI HPI Cough: Details: Simone is here for follow-up after 6 months. He is doing fairly well but does have increased amount of cough, and tends to use albuterol HFA in the morning and evening in addition to his regular inhalers. He feels that he is not able to clear his lungs. He does have a nebulizer at home but has not used it for a few years. He has had no acute respiratory infection. His activity level remains stable , though he does get short of breath on moderate amount of physical activity. [facility] Medical History Urinary frequency COPD exacerbation Bloating Hypoglycemia Chronic constipation Tinea pedis, left Hx of fracture of femur Eczema Cholelithiasis Carpal tunnel syndrome Ankle fracture Diabetes mellitus type 1 Chronic kidney disease (CKD) stage G2/A3, mildly decreased glomerular filtration rate (GFR) between 60-89 mL/min/1.73 square meter and albuminuria creatinine ratio greater than 300 mg/g Hypercholesterolemia Diabetic neuropathy COPD (chronic obstructive pulmonary disease) Coronary artery disease Hypertension Surgical History Hx of colonoscopy Hx of eye surgery Hx of appendectomy H/O umbilical hernia repair History of cholecystectomy History of elbow surgery History of carpal tunnel release Family History Father Hypertension Stroke CVD (cerebrovascular disease) Mother Hypertension CVD (cerebrovascular disease) Diabetes Sister HX: breast cancer Paternal Grandfather Colon cancer Social History Housing: House Alcohol intake: former Patient Tobacco Use Status: Former Tobacco user Tobacco use type: Cigarette e-Cigarette/Vaping Use: Never Used Second Hand Smoke Exposure: No Substance Use Type: Marijuana service: No Current occupational status: disabled Cognitive needs: No Hearing needs: No Vision needs: Yes Review of Systems Const All systems reviewed & are unremarkable except as noted in HPI and below Eyes Reports no additional complaints ENT Reports nasal congestion (Only mild, off and on) Card Denies irregular heart rhythm and Denies leg edema Resp Reports as per HPI GI Reports dyspepsia (Mild) Reports erectile dysfunction and Reports urinary hesitancy Musc Reports back pain (Mild) Skin/Breast Reports system reviewed and no additional complaints, except as documented Neuro Reports no additional complaints Psych Reports no additional complaints Physical Exam Vital Signs: Last Vital Signs Pulse 71 04/22/24 13:41 BP 112/68 04/22/24 13:41 Pulse Ox 94 04/22/24 13:41 Oxygen Delivery Method Room Air 04/22/24 13:41 BMI result Body Mass Index 22.1 Const General: comfortable (BUT HAS FREQUENT COUGH), no acute distress, alert and awake Orientation/consciousness: patient oriented x3 HEENT Head: Yes normal to inspection General nose exam: No nasal polyps present and No nasal discharge present Face and sinus: Yes sinuses nontender Mouth: oropharynx normal Throat: Yes posterior oropharynx normal Eyes General: appearance normal, both eyes and all related structures Neck Neck: Yes normal visual inspection, Yes no lymphadenopathy, Yes trachea midline and Yes no JVD Thyroid: Thyroid normal Chest Chest palpation & inspection: normal inspection of the chest, normal palpation of entire chest wall and no tenderness Resp Other: Percussion note hyper-resonant, Breath sounds are distant with prolonged expiratory phase. No wheezes or rhonchi are heard. Cardio Palpation: normal PMI Rate: regular rate Rhythm: regular rhythm Heart sounds: no gallops and no murmurs GI Palpation (GI): Soft to palpation, nontender, No hepatosplenomegaly present and no masses Auscultation: normal bowel sounds Back/Spine/Pelvis Thoracic/Lumbar Spine: thoracic and lumbar spine normal to inspection Skin General skin exam: no rashes or lesions noted Neuro General: patient oriented x3 and no focal motor deficits Cranial nerves: Yes CN's II-XII intact bilaterally Extrem General: Yes normal to inspection, Yes no clubbing, cyanosis or edema and Yes no calf tenderness Psych Appearance: grossly normal and well kempt Speech and movement: Normal speech and movement present Office Procedures Spirometry Testing Spirometry Comments: In office spirometry completed with results given to Dr Emerson. [id number]- Spirometry Results Reviewed Results Reviewed: SPIROMETRY FVC=60% FEV1=44 % FEF 25-75 = !9 % C/W SEVERE OBSTRUCTIVE AIRWAY DISORDER, BASICALLY UNCHANGED FROM BEFORE, Assessment & Plan Assessment & Plan (1) COPD (chronic obstructive pulmonary disease): Comment: HE IS A KNOWN CASE OF SEVERE COPD, REMAINS STABLE, BUT DOES COMPLAIN OF INCREASED COUGH, AND USE OF ALBUTEROL AT LEAST TWICE A DAY IN ADDITION TO THE REGULAR MAINTENANCE REGIMEN. SPIROMETRY PERFORMED. Code(s): J44.9 - Chronic obstructive pulmonary disease, unspecified Category: Medical Qualifiers: COPD type: emphysema Emphysema type: unspecified Qualified Code(s): J43.9 - Emphysema, unspecified Plan: CONTINUE TO USE BREO ELLIPTA 100-25 1 INHALATION DAILY SPIRIVA HANDIHALER 1 INHALATION DAILY. USE IPRATROPIUM-ALBUTEROL SOLUTION IN THE NEBULIZER Q 6 HOURS P.R.N. WHEN AT HOME. AND USE ALBUTEROL HFA 2 PUFFS Q 4-6 HOURS P.R.N. WHEN OUTDOORS. Orders: Orders AMB Spirometry Testing Today J43.9 - Emphysema, unspecified Medications: New ipratropium-albuterol 0.5 mg-3 mg(2.5 mg base)/3 mL 3 mL inhalation Q4H PRN 180 mL 4RF wheezing/CHEST CONGESTION 30 days Coding Level of Care Code Est Pt Level 3 (25169) Diagnoses Pulmonary emphysema, unspecified emphysema type J43.9 COPD type: emphysema Emphysema type: unspecified CPT Codes Spirometry - CPT: 20224- Spirometry ([id number])
[2024-04-22 13:41] VITALS: BP 112/68; PULSE 71; O2SAT 94; BMI 22.1
== END 2024-04-22 14:24 | disposition home or self-care (01) ==
PROVIDERS: PCP Internal Medicine; Visit Provider Internal Medicine
DX: J43.9 Emphysema, unspecified (principal)
CPT/HCPCS: 94010; 99213

== ENCOUNTER → 2024-04-22 13:30 | Outpatient (BNVA) | payer MEDICARE, MEDICAID, SELFPAY | PROVIDERS: PCP Internal Medicine; Visit Provider Internal Medicine | DX: J43.9 Emphysema, unspecified (principal) | CPT/HCPCS: 94010; 99212 ==

== ENCOUNTER 2024-06-21 07:46 | Outpatient (REF) | payer MEDICARE, MEDICAID, SELFPAY ==
[2024-06-21 11:46] LABS: MANUAL DIFF FLAG NO
[2024-06-21 11:49] LABS: Basophils Percent Auto 0.5 % (0-2); Eosinophils Absolute Auto 0.3 X10*3/uL (0.0-0.4); Hematocrit 40.7 % (42.0-52.0); Hemoglobin 13.4 g/dl (14.0-18.0); Imm Gran Abs Auto 0.02 X10*3/uL (0.00-0.03); Imm Gran Pct Auto 0.3 % (0.0-0.4); Lymphocytes Absolute Auto 2.7 X10*3/uL (1.2-4.9); Lymphocytes Percent Auto 36.3 % (20-40); Mean Corpuscular HGB Conc 32.9 g/dl (31.0-36.0); Mean Corpuscular Hemoglobin 31.5 pg (27.0-33.0); Mean Corpuscular Volume 95.8 fL (80.0-98.0); Mean Platelet Volume 9.4 fL (9.4-12.4); Monocytes Absolute Auto 0.9 X10*3/uL (0.1-1.2); Neutrophils Absolute Auto 3.5 x10*3/uL (2.0-8.3); Neutrophils Percent Auto 46.9 % (45-73); Platelet Count 220 X10*3/uL (160-400); Red Blood Count 4.25 X10*6/uL (4.60-5.80); Red Cell Distribution Width 12.9 % (11.0-16.0); White Blood Count 7.5 X10*3/uL (4.8-10.8)
[2024-06-21 11:55] LABS: Estimated Average Glucose 174 mg/dL; Hemoglobin A1C 197.8298 umol/L; Hemoglobin A1c % 7.7 % (<6.0); Total Hemoglobin (HGBA1C) 3289.1245 umol/L
[2024-06-21 12:10] LABS: Alanine Aminotransferase 15 U/L (0-40); Albumin Level 3.8 g/dL (3.5-5.0); Alkaline Phosphatase 80 U/L (39-117); Anion Gap 11 (12-20); Aspartate Amino Transferase 21 U/L (5-37); Bilirubin Total 0.2 mg/dL (0.0-1.0); Blood Urea Nitrogen 24 mg/dL (9-16); Calcium 9.2 mg/dL (8.4-10.2); Carbon Dioxide 28 mmol/L (22-29); Chloride 106 mmol/L (96-108); Cholesterol 144 mg/dL (<200); Estimated Glomerular Filt Rate 53; Glucose Random 100 mg/dL (60-115); HDL Cholesterol 74 mg/dL (>40); LDL Cholesterol Calculated 58 mg/dL (<100); Potassium 4.6 mmol/L (3.3-5.1); Sodium 140 mmol/L (135-145); Total Protein 6.6 g/dL (6.5-8.0); Triglycerides 64 mg/dL (<150)
[2024-06-21 12:26] LABS: Creatinine Urine 73.05 mg/dL; Microalbum/Creatinine Ratio Ur 214.9 ug/mg cr (<30)
[2024-06-21 12:30] LABS: Thyroid Stimulating Hormone 2.31 uIU/mL (0.32-4.0)
[2024-06-21 12:38] LABS: Folate 13.2 ng/mL (> or = 4.0); Prostate Specific Antigen Scr 2.87 ng/mL (<0.05-4.0); Vitamin B12 586 pg/mL (200-900)
== END 2024-06-21 07:47 | disposition home or self-care (01) ==
LOC: HO.HMGCLDS 07:46
PROVIDERS: PCP Internal Medicine; Referring Provider Pediatrics; Visit Provider Internal Medicine
DX: E10.42 Type 1 diabetes mellitus with diabetic polyneuropathy (principal); E78.00 Pure hypercholesterolemia, unspecified; Z12.5 Encounter for screening for malignant neoplasm of prostate
CPT/HCPCS: 36415; 80053; 80061; 82043; 82570; 82607; 82746; 83036; 84153; 84439; 84443; 85025

== ENCOUNTER 2024-06-24 13:29 | Outpatient (AMB) | payer MEDICARE, MEDICAID, SELFPAY ==
[2024-06-24 13:31] VITALS: BP 142/74; PULSE 74; O2SAT 94; BMI 21.3
--- NOTE | 2024-06-24 13:31 | MHC.PC.OV ---
Vital Signs 06/24/24 13:31 Height 5 ft 3 in Weight 120 lb BMI 21.3 BP 142/74 H Blood Pressure Location Lt brachial Position Sitting Pulse 74 Pulse Source Pulse Oximeter Pulse Oximetry (%) 94 Oxygen Delivery Method Room Air Intake Visit Reasons: DM, neuropathy Intake Note: Pt reports not taking both his BP medications this morning. Carbide Powder Processor Required: No Accompanied by: Self / Same As Patient Allergies adalimumab [From Humira] Adverse Reaction (Verified 06/24/24 13:32) sleepy pregabalin [From Lyrica] Adverse Reaction (Verified 06/24/24 13:32) Dizzyness Tobacco use date assessed: 02/05/24 Fall risk assessment: No Falls in past year Last assessed Fall Risk: 06/24/24 Dental Screening Dental Screen Date: 11/01/23 HPI DM, neuropathy HPI Details 63-year-old male with type 1 diabetes mellitus chronic kidney disease with neuropathy COPD hypertension coronary artery disease and BPH last seen in February 2024. Patient's colonoscopy is up-to-date. Review of the notes patient has been follow-up with Nephrology chronic kidney disease stage IIIA stable renal function patient was advised to have an increase in the carvedilol to 25 mg twice a day. Patient also has followed up with Pulmonary diagnosis of severe obstructive airway disorder COPD severe on Breo and Spiriva as well as DuoNeb. A1c in April 09 0.6. Patient also follows up with urology incomplete bladder emptying and has been placed on Flomax, bethanechol and mirabegron BPH at 52 cc [facility] Medical History Urinary frequency COPD exacerbation Bloating Hypoglycemia Chronic constipation Tinea pedis, left Hx of fracture of femur Eczema Cholelithiasis Carpal tunnel syndrome Ankle fracture Diabetes mellitus type 1 Chronic kidney disease (CKD) stage G2/A3, mildly decreased glomerular filtration rate (GFR) between 60-89 mL/min/1.73 square meter and albuminuria creatinine ratio greater than 300 mg/g Hypercholesterolemia Diabetic neuropathy COPD (chronic obstructive pulmonary disease) Coronary artery disease Hypertension Surgical History Hx of colonoscopy Hx of eye surgery Hx of appendectomy H/O umbilical hernia repair History of cholecystectomy History of elbow surgery History of carpal tunnel release Family History Father Hypertension Stroke CVD (cerebrovascular disease) Mother Hypertension CVD (cerebrovascular disease) Diabetes Sister HX: breast cancer Paternal Grandfather Colon cancer Social History Housing: House Alcohol intake: former Patient Tobacco Use Status: Former Tobacco user Tobacco use type: Cigarette e-Cigarette/Vaping Use: Never Used Second Hand Smoke Exposure: No Substance Use Type: Marijuana service: No Current occupational status: disabled Cognitive needs: No Hearing needs: No Vision needs: Yes Questionnaire Thrive Questionnaire Date Thrive assessed: 02/05/24 BARRY-7 AMB Questionnaire BARRY-7 Date BARRY - 7 assessed: 02/05/24 Source: Developed by Drs. Dylan Mendez, Arabella Griffin, Mick Valero and colleagues, with an educational teto from [employer]. Physical exam (Primary Care) Vital Signs: Last Vital Signs Pulse 74 06/24/24 13:31 BP 142/74 H 06/24/24 13:31 Pulse Ox 94 06/24/24 13:31 Oxygen Delivery Method Room Air 06/24/24 13:31 BMI result Body Mass Index 21.3 Tobacco/Smoking Status: Tobacco use Status Tobacco use date assessed 02/05/24 06/24/24 13:31 Patient Tobacco Use Status Former Tobacco user 06/24/24 13:31 Tobacco use type Cigarette 06/24/24 13:31 e-Cigarette/Vaping Use Never Used 06/24/24 13:31 Thrive Assessment: Date of Thrive Assessment Date Thrive assessed 02/05/24 06/24/24 13:31 Const General: alert; No acute distress Eyes Conjunctivae: conjunctivae normal Resp Auscultation: clear to auscultation bilaterally Cardio Rate: regular rate Rhythm: regular rhythm GI Inspection: Yes normal to inspection Extrem General: Yes normal to inspection and No edema Office Procedures Flu Questionnaire Does the patient have a severe egg allergy?: No Does the patient have severe life threatening allergies?: No Does the patient have a fever or illness today?: No Has the patient ever had Guillain-Cisne Syndrome?: No Has the patient ever had any past reaction to a flu shot?: No Immunizations Fluarix Triv [id number] (PF) 45 mcg (15 mcg x 3)/0.5 mL IM syringe Performing Provider: Rhea Martinez MD Performing Location: [facility] Administered by: KAYODE Muir on 06/24/24 14:10 Dose Route Admin Location Dispensed Lot Number Expiration Date [employer]ator 0.5 mL IM Left Deltoid 0.5 mL [id number] 03/02/25 [id number] [employer] VIS Given Date VIS Provided VIS Publication Date 06/24/24 Single Vaccine 21 Eligibility Eligibility Date Funding Source Not [facility] Eligible 06/24/24 Private Coding Level of Care Code Est Pt Level 4 (71797) Complex EM visit Add On G2211 Diagnoses Essential hypertension I10 Hypertension type: essential hypertension Coronary artery disease involving [place] coronary artery of [place] heart without angina pectoris I25.10 Associated angina: without angina Coronary Disease-Associated Artery/Lesion type: [place] artery Three Affiliated vs. transplanted heart: [place] heart Pulmonary emphysema, unspecified emphysema type J43.9 COPD type: emphysema Emphysema type: unspecified Hypercholesterolemia E78.00 Chronic kidney disease (CKD) stage G2/A3, mildly decreased glomerular filtration rate (GFR) between 60-89 mL/min/1.73 square meter and albuminuria creatinine ratio greater than 300 mg/g N18.2 Diabetic polyneuropathy associated with type 1 diabetes mellitus E10.42 Diabetes mellitus complication detail: diabetic polyneuropathy Diabetes mellitus type: type 1 Type 1 diabetes mellitus with diabetic polyneuropathy E10.42 Diabetes mellitus complication detail: with polyneuropathy Diabetes mellitus complication status: with neurologic complications Benign prostatic hyperplasia with weak urinary stream N40.1; R39.12 Lower urinary tract symptom detail: weak urinary stream Lower urinary tract symptom presence: symptoms present Hip pain, right M25.551 Assessment & Plan Assessment & Plan (1) Hypertension: Code(s): I10 - Essential (primary) hypertension Category: Medical Qualifiers: Hypertension type: essential hypertension Qualified Code(s): I10 - Essential (primary) hypertension Plan: Continue with blood pressure medication. Decrease salt intake and exercise patient is on carvedilol 25 mg twice a day lisinopril 40 mg once a day (2) Coronary artery disease: Code(s): I25.10 - Atherosclerotic heart disease of [place] coronary artery without angina pectoris Category: Medical Qualifiers: Associated angina: without angina Coronary Disease-Associated Artery/Lesion type: [place] artery Three Affiliated vs. transplanted heart: [place] heart Qualified Code(s): I25.10 - Atherosclerotic heart disease of [place] coronary artery without angina pectoris Plan: Control the cholesterol, weight, blood pressure, diabetes continue with aspirin 81 mg once a day (3) COPD (chronic obstructive pulmonary disease): Comment: HE IS A KNOWN CASE OF SEVERE COPD, REMAINS STABLE, BUT DOES COMPLAIN OF INCREASED COUGH, AND USE OF ALBUTEROL AT LEAST TWICE A DAY IN ADDITION TO THE REGULAR MAINTENANCE REGIMEN. SPIROMETRY PERFORMED. Code(s): J44.9 - Chronic obstructive pulmonary disease, unspecified Category: Medical Qualifiers: COPD type: emphysema Emphysema type: unspecified Qualified Code(s): J43.9 - Emphysema, unspecified Plan: Patient follows up with Pulmonary had severe obstructive pulmonary disease on DuoNeb as well as Breo and Spiriva (4) Hypercholesterolemia: Code(s): E78.00 - Pure hypercholesterolemia, unspecified Category: Medical Plan: Avoid fried foods, chicken skin, eggs, butter margarine, pastries and meat. Be it pork or beef they have a lot of cholesterol LDL goal of less than 70 and triglyceride of less than 150. On rosuvastatin 40 mg once a day (5) Chronic kidney disease (CKD) stage G2/A3, mildly decreased glomerular filtration rate (GFR) between 60-89 mL/min/1.73 square meter and albuminuria creatinine ratio greater than 300 mg/g: Code(s): N18.2 - Chronic kidney disease, stage 2 (mild) Category: Medical Plan: Patient follows up with Nephrology continue with keeping blood pressure under control diabetes needs to be better controlled. (6) Diabetic neuropathy: Code(s): E11.40 - Type 2 diabetes mellitus with diabetic neuropathy, unspecified Category: Medical Qualifiers: Diabetes mellitus complication detail: diabetic polyneuropathy Diabetes mellitus type: type 1 Qualified Code(s): E10.42 - Type 1 diabetes mellitus with diabetic polyneuropathy Plan: Narcotic pain meds: Is being prescribed with the understanding that these medications are potentially addictive and should be used only when absolutely necessary and must always be secured. Any remaining pills should be safely disposed off appropriately. Patient is advised that narcotics can impaired judgment and one should not drive or operate heavy machinery while taking these medications. Never share these medications with anybody and do not leave them unattended. They will not be replaced under any circumstances. (7) Diabetes mellitus type 1: Comment: Insulin Pump Dr. Rae Camargo Code(s): E10.9 - Type 1 diabetes mellitus without complications Category: Medical Qualifiers: Diabetes mellitus complication detail: with polyneuropathy Diabetes mellitus complication status: with neurologic complications Qualified Code(s): E10.42 - Type 1 diabetes mellitus with diabetic polyneuropathy Plan: Patient is being followed up by endocrinology on the pump (8) BPH (benign prostatic hyperplasia): Code(s): N40.0 - Benign prostatic hyperplasia without lower urinary tract symptoms Category: Medical Qualifiers: Lower urinary tract symptom detail: weak urinary stream Lower urinary tract symptom presence: symptoms present Qualified Code(s): N40.1 - Benign prostatic hyperplasia with lower urinary tract symptoms; R39.12 - Poor urinary stream Plan: Patient follows up with urology has been placed on bethanechol tamsulosin and mirabegron (9) Hip pain, right: Code(s): M25.551 - Pain in right hip Category: Medical Plan: Patient presently on narcotic pain medication, will monitor Orders: Orders XR hip RT min 2V Today M25.551 - Pain in right hip Influenza [id number] Immunization Today Z23 - Encounter for immunization Medications: Refilled hydrocodone-acetaminophen 5-325 mg 1 tab PO DAILY PRN 30 tabs 0RF pain 30 days E10.42 - Type 1 diabetes mellitus with diabetic polyneuropathy
== END 2024-06-24 14:13 | disposition home or self-care (01) ==
PROVIDERS: PCP Internal Medicine; Visit Provider Internal Medicine
DX: I12.9 Hypertensive chronic kidney disease with stage 1 through stage 4 chronic kidney disease, or unspecified chronic kidney disease (principal); E10.42 Type 1 diabetes mellitus with diabetic polyneuropathy; J43.9 Emphysema, unspecified; N18.2 Chronic kidney disease, stage 2 (mild); I25.10 Atherosclerotic heart disease of native coronary artery without angina pectoris; E78.00 Pure hypercholesterolemia, unspecified; N40.1 Benign prostatic hyperplasia with lower urinary tract symptoms; R39.12 Poor urinary stream; M25.551 Pain in right hip

== ENCOUNTER → 2024-06-24 13:29 | Outpatient (BNVA) | payer MEDICARE, MEDICAID, SELFPAY | PROVIDERS: PCP Internal Medicine; Visit Provider Internal Medicine | DX: I12.9 Hypertensive chronic kidney disease with stage 1 through stage 4 chronic kidney disease, or unspecified chronic kidney disease (principal); E10.22 Type 1 diabetes mellitus with diabetic chronic kidney disease; N18.2 Chronic kidney disease, stage 2 (mild); I25.10 Atherosclerotic heart disease of native coronary artery without angina pectoris; J43.9 Emphysema, unspecified; E78.00 Pure hypercholesterolemia, unspecified; Z23 Encounter for immunization; E10.42 Type 1 diabetes mellitus with diabetic polyneuropathy; N40.1 Benign prostatic hyperplasia with lower urinary tract symptoms; R39.12 Poor urinary stream; M25.551 Pain in right hip; Z79.899 Other long term (current) drug therapy | CPT/HCPCS: 90471; 90656; 99212 ==

== ENCOUNTER 2024-06-30 11:57 | Outpatient (REF) | payer MEDICARE, MEDICAID, SELFPAY | END 2024-06-30 11:58 | disposition home or self-care (01) | LOC: HO.XRAY 11:57 | PROVIDERS: PCP Internal Medicine; Visit Provider Internal Medicine | DX: M25.551 Pain in right hip (principal) | CPT/HCPCS: 73502 ==

== ENCOUNTER 2024-07-04 10:10 | Outpatient (AMB) | payer MEDICARE, MEDICAID, SELFPAY ==
--- NOTE | 2024-07-04 10:21 | AM.OFFVISMDC ---
Intake Vital Signs 07/04/24 10:24 Height 5 ft 3 in Weight 120 lb 2 oz BMI 21.3 BP 120/70 Blood Pressure Location Lt brachial Position Sitting Pulse 73 Pulse Source Pulse Oximeter Pulse Oximetry (%) 96 Oxygen Delivery Method Room Air Intake Visit Reasons: ELMO [id number] Intake Note: Patient is here for an Annual Wellness Visit. [employer] Crewmember Required: No Panel Edge Painter: Panel Edge Painter offered & declined Accompanied by: Self / Same As Patient Allergies adalimumab [From Humira] Adverse Reaction (Verified 07/04/24 10:24) sleepy pregabalin [From Lyrica] Adverse Reaction (Verified 07/04/24 10:24) Dizzyness Medication List - Last Reconciled 07/04/24 by Rhea Hamm Po, albuterol sulfate 90 mcg/actuation (Ventolin HFA) 2 puffs PO Q4-6H PRN aspirin (Adult Aspirin Regimen) 81 mg PO DAILY PRN bethanechol chloride 50 mg PO BID 90 days Breo Ellipta 100-25 mcg/dose (fluticasone furoate-vilanterol) 1 ea PO DAILY NS carbamazepine ER 200 mg PO BEDTIME carvedilol 25 mg PO BID gabapentin 100 mg PO DAILY PRN 90 days glucagon 3 mg/actuation (Baqsimi) mg intranasal hydrocodone-acetaminophen 5-325 mg 1 tab PO DAILY PRN 30 days insulin aspart U-100 70 units subcut DAILY insulin lispro (Humalog U-100 Insulin) 1 sliding scale dose subcut USEASDIRECTD ipratropium-albuterol 0.5 mg-3 mg(2.5 mg base)/3 mL 3 mL inhalation Q6-8H PRN 30 days ipratropium-albuterol 0.5 mg-3 mg(2.5 mg base)/3 mL 3 mL inhalation Q4H PRN 30 days lactulose 20 grams (30 mL) PO DAILY PRN lisinopril 40 mg PO DAILY metoclopramide HCl (Reglan) 10 mg PO Q6H PRN mirabegron ER (Myrbetriq) 25 mg PO DAILY 90 days potassium citrate ER 10 mEq PO TID rosuvastatin 40 mg PO DAILY sennosides-docusate sodium 8.6-50 mg (Senna Plus) 2 tab-caps (2 x 8.6-50 mg) PO BEDTIME sildenafil (Viagra) 100 mg PO DAILY PRN simethicone (Gas Relief (simethicone)) 125 mg PO BEDTIME Spiriva with HandiHaler (tiotropium bromide) 1 cap inhalation DAILY NS tamsulosin 0.4 mg PO DAILY 90 days HPI SWV G0439 HPI Details 63-year-old male with type 1 diabetes mellitus hypertension coronary artery disease COPD hypercholesterolemia chronic kidney disease diabetic neuropathy on narcotic pain medication BPH coming in for annual well visit last seen in June 24. Patient's colonoscopy is up-to-date 2019. Dr. Lamb renal, Dr. Emerson puldedrick, ENDO Dr. Mcbride, Dr. Melara urology and Dr. Seun agudelo [facility] Medical History Urinary frequency COPD exacerbation Bloating Hypoglycemia Chronic constipation Tinea pedis, left Hx of fracture of femur Eczema Cholelithiasis Carpal tunnel syndrome Ankle fracture Diabetes mellitus type 1 Chronic kidney disease (CKD) stage G2/A3, mildly decreased glomerular filtration rate (GFR) between 60-89 mL/min/1.73 square meter and albuminuria creatinine ratio greater than 300 mg/g Hypercholesterolemia Diabetic neuropathy COPD (chronic obstructive pulmonary disease) Coronary artery disease Hypertension Surgical History Hx of colonoscopy Hx of eye surgery Hx of appendectomy H/O umbilical hernia repair History of cholecystectomy History of elbow surgery History of carpal tunnel release Family History Father Hypertension Stroke CVD (cerebrovascular disease) Mother Hypertension CVD (cerebrovascular disease) Diabetes Sister HX: breast cancer Paternal Grandfather Colon cancer Social History (Updated 07/04/24 @ 10:51 by Rhea Martinez MD) Housing: House Alcohol intake: former Patient Tobacco Use Status: Former Tobacco user Tobacco use type: Cigarette Years Smoked: 2002 quit 08/12 e-Cigarette/Vaping Use: Never Used Second Hand Smoke Exposure: No Substance Use Type: Marijuana service: No Current occupational status: disabled Cognitive needs: No Hearing needs: No Vision needs: Yes Questionnaire Medicare Wellness Checkup What [age] your age?: 65-69 (63) What gender do you identify with?: male During the past 4 weeks, how much have you been bothered by emotional problems such as feeling anxious, depressed, irritable, sad or downhearted, and blue?: not at all During the past 4 weeks, has your physical & emotional health limited your social activities with family, friends, neighbors, or groups?: not at all During the past 4 weeks, how much bodily pain have you generally had?: moderate pain During the past 4 weeks, was someone available to help you if you needed & wanted help?: yes, as much as I wanted During the past 4 weeks, what was the hardest physical activity you could do for at least 2 minutes?: moderate Can you get to places out of walking distance without help? (For eg., can you travel alone on buses, taxis or drive your car?): Yes Can you go shopping for groceries or clothes without someone's help?: Yes Can you prepare your own meals?: Yes Can you do your housework without help?: Yes Because of any health problems, do you need the help of another person with your personal care needs such as eating, bathing, dressing or getting around the house?: No Can you handle your own money without help?: Yes During the past 4 weeks, how would you rate your health in general?: fair During the past 4 weeks how have things been going for you?: pretty well Are you having difficulties driving your car?: not applicable, I don't use a car Do you always fasten your seat belt when you are in a car?: yes, usually During past 4 weeks, have you been bothered by the following: never: Sexual problems?, Trouble eating well?, Teeth or denture problems? and Problems using the telephone? and seldom: Falling or dizzy when standing up and Tiredness or fatigue? Have you fallen 2 or more times in the past year?: No Are you afraid of falling?: No Are you a smoker?: no During the past 4 weeks, how many drinks of wine, beer, or other alcoholic beverages did you have?: no alcohol at all Do you exercise for about 20 minutes 3 or more times a week?: yes, some of the time Have you been given information to help with the following?: yes: Keeping track of your medications? and no: Hazards in your house that might hurt you? How often do you have trouble taking medicines the way you have been told to take them?: I always take medicine as prescribed How confident are you that you can control & manage most of your health problems?: very confident What is your race?: White PHQ-9 Over the last 2 weeks, how often have you been bothered by any of the following problems? 1. Little interest or pleasure in doing things: not at all 2. Feeling down, depressed, or hopeless: not at all 3. Trouble falling or staying asleep, or sleeping too much: not at all 4. Feeling tired or having little energy: not at all 5. Poor appetite or overeating: not at all 6. Feeling bad about yourself - or that you are a failure or have let yourself or your family down: not at all 7. Trouble concentrating on things, such as reading the newspaper or watching television: not at all 8. Moving or speaking so slowly that other people could have noticed. Or the opposite - being so fidgety or restless that you have been moving around a lot more than usual: not at all 9. Thoughts that you would be better off or of hurting yourself in some way: not at all Total score: 0 Depression Screening Interpretation: Negative Depression Screening Done: Yes Source: Developed by Drs. Dylan Mendez, Mick Stacy and colleagues, with an educational teto from [employer]. Thrive Questionnaire Date Thrive assessed: 02/05/24 BARRY-7 AMB Questionnaire BARRY-7 Date BARRY - 7 assessed: 02/05/24 Source: Developed by Arabella Umana Kurt Kroenke and colleagues, with an educational teto from [employer]. Review of Systems Const Denies poor appetite and Denies weakness Eyes Denies no additional complaints ENT Reports Normal hearing present, Denies dizziness, Denies nasal congestion, Denies tinnitus and Denies sore throat Card Denies chest pain, Denies syncope, Denies rapid heart rate and Denies dyspnea Resp Denies cough and Denies dyspnea GI Denies change in stool character, Reports constipation, Denies diarrhea, Denies nausea and Denies vomiting Denies dysuria and Denies urinary frequency Neuro Reports Normal hearing present, Denies confusion, Denies dizziness, Denies syncope and Denies weakness Psych Denies confusion Physical Exam Vital Signs: Last Vital Signs Pulse 73 07/04/24 10:24 BP 120/70 07/04/24 10:24 Pulse Ox 96 07/04/24 10:24 Oxygen Delivery Method Room Air 07/04/24 10:24 BMI result Body Mass Index 21.3 Const General: No confusion Orientation/consciousness: No confusion HEENT Head: Yes normocephalic Ears: external ears normal and TM's normal bilaterally Face and sinus: Yes normal facial exam Mouth: moist mucous membranes Throat: Yes tonsils normal Eyes Conjunctivae: conjunctivae normal Pupils: Equal, round and reactive pupils present and Pupil accommodation reflex normal Direct Ophthalmoscopy: normal light reflex Neck Neck: No lymphadenopathy Thyroid: Thyroid normal Chest Chest palpation & inspection: normal inspection of the chest Resp Effort & Inspection: normal respiratory effort and no audible wheezes Auscultation: clear to auscultation bilaterally, no crackles, no wheezes and lung sounds not diminished Cardio Rate: regular rate Rhythm: regular rhythm Peripheral pulses: radial pulses present and dorsalis pedis present GI Other: guaiac negative prostate N Palpation (GI): no masses Auscultation: normal bowel sounds and normoactive bowel sounds Male General Exam: Yes normal external exam Skin General skin exam: no rashes or lesions noted Rashes: no rashes Neuro Other: pedal pulse good but loss of sensory on the toes and sole bilateral General: No confusion Cranial nerves: Yes Equal, round and reactive pupils present and Yes Normal hearing present Cognition (Neuro): normal cognition Gait exam (Neuro): Normal gait present Motor exam (neuro): 5/5 motor strength present throughout Deep tendon reflexes (DTR's): Right brachioradialis reflex intensity grade: 2+, Left brachioradialis reflex intensity grade: 2+, Right patellar reflex intensity grade: 2+ and Left patellar reflex intensity grade: 2+ Extrem General: No edema Assessment & Plan Assessment & Plan (1) Medicare annual wellness visit, subsequent: Code(s): Z00.00 - Encounter for general adult medical examination without abnormal findings Plan: Patient is advised to eat healthy, keep well hydrated, keep active and have adequate sleep. (2) Diabetes mellitus type 1: Comment: Insulin Pump Dr. Rae Camargo Code(s): E10.9 - Type 1 diabetes mellitus without complications Qualifiers: Diabetes mellitus complication status: with neurologic complications Diabetes mellitus complication detail: with polyneuropathy Qualified Code(s): E10.42 - Type 1 diabetes mellitus with diabetic polyneuropathy Plan: Decrease the amount of carbohydrate intake, pasta, bread, rice and potatoes are all sugar and that is aside from all the sweet stuff, remember that fruits are good but they are Sweet also. Hemoglobin A1c goal of less than 7.0 patient is being taken care of by Endocrinology on the insulin pump. (3) Chronic kidney disease (CKD) stage G2/A3, mildly decreased glomerular filtration rate (GFR) between 60-89 mL/min/1.73 square meter and albuminuria creatinine ratio greater than 300 mg/g: Code(s): N18.2 - Chronic kidney disease, stage 2 (mild) Plan: Keep well hydrated avoid NSAIDs continuing to monitor renal function (4) COPD (chronic obstructive pulmonary disease): Comment: HE IS A KNOWN CASE OF SEVERE COPD, REMAINS STABLE, BUT DOES COMPLAIN OF INCREASED COUGH, AND USE OF ALBUTEROL AT LEAST TWICE A DAY IN ADDITION TO THE REGULAR MAINTENANCE REGIMEN. SPIROMETRY PERFORMED. Code(s): J44.9 - Chronic obstructive pulmonary disease, unspecified Qualifiers: COPD type: emphysema Emphysema type: unspecified Qualified Code(s): J43.9 - Emphysema, unspecified Plan: Continue with Breo with rinsing mouth every time use and albuterol as needed (5) Hypertension: Code(s): I10 - Essential (primary) hypertension Qualifiers: Hypertension type: essential hypertension Qualified Code(s): I10 - Essential (primary) hypertension Plan: Continue with blood pressure medication. Decrease salt intake and exercise patient is on carvedilol 25 mg twice a day lisinopril 40 mg once a day (6) Coronary artery disease: Code(s): I25.10 - Atherosclerotic heart disease of [place] coronary artery without angina pectoris Qualifiers: Coronary Disease-Associated Artery/Lesion type: [place] artery [place] vs. transplanted heart: [place] heart Associated angina: without angina Qualified Code(s): I25.10 - Atherosclerotic heart disease of [place] coronary artery without angina pectoris Plan: Control the cholesterol, weight, blood pressure, diabetes on aspirin 81 mg once a day (7) Diabetic neuropathy: Code(s): E11.40 - Type 2 diabetes mellitus with diabetic neuropathy, unspecified Qualifiers: Diabetes mellitus type: type 1 Diabetes mellitus complication detail: diabetic polyneuropathy Qualified Code(s): E10.42 - Type 1 diabetes mellitus with diabetic polyneuropathy Plan: Narcotic pain meds: Is being prescribed with the understanding that these medications are potentially addictive and should be used only when absolutely necessary and must always be secured. Any remaining pills should be safely disposed off appropriately. Patient is advised that narcotics can impaired judgment and one should not drive or operate heavy machinery while taking these medications. Never share these medications with anybody and do not leave them unattended. They will not be replaced under any circumstances. Orders: Referrals Pulmonology Referral J43.9 - Emphysema, unspecified Quality Reporting (2019) Depression/Bipolar (159/160/161/177) PHQ-9: Total score: 0 Coding Level of Care Code Medicare Subsequent (G0439) Diagnoses Medicare annual wellness visit, subsequent Z00.00 Type 1 diabetes mellitus with diabetic polyneuropathy E10.42 Diabetes mellitus complication status: with neurologic complications Diabetes mellitus complication detail: with polyneuropathy Chronic kidney disease (CKD) stage G2/A3, mildly decreased glomerular filtration rate (GFR) between 60-89 mL/min/1.73 square meter and albuminuria creatinine ratio greater than 300 mg/g N18.2 Pulmonary emphysema, unspecified emphysema type J43.9 COPD type: emphysema Emphysema type: unspecified Essential hypertension I10 Hypertension type: essential hypertension Coronary artery disease involving [place] coronary artery of [place] heart without angina pectoris I25.10 Coronary Disease-Associated Artery/Lesion type: [place] artery [place] vs. transplanted heart: [place] heart Associated angina: without angina Diabetic polyneuropathy associated with type 1 diabetes mellitus E10.42 Diabetes mellitus type: type 1 Diabetes mellitus complication detail: diabetic polyneuropathy
[2024-07-04 10:24] VITALS: BP 120/70; PULSE 73; O2SAT 96; BMI 21.3
== END 2024-07-04 11:08 | disposition home or self-care (01) ==
LOC: HO.HMCH 10:10
PROVIDERS: PCP Internal Medicine; Visit Provider Internal Medicine
DX: Z00.00 Encounter for general adult medical examination without abnormal findings (principal); I12.9 Hypertensive chronic kidney disease with stage 1 through stage 4 chronic kidney disease, or unspecified chronic kidney disease; E10.42 Type 1 diabetes mellitus with diabetic polyneuropathy; N18.2 Chronic kidney disease, stage 2 (mild); J43.9 Emphysema, unspecified; I25.10 Atherosclerotic heart disease of native coronary artery without angina pectoris

== ENCOUNTER → 2024-07-04 10:10 | Outpatient (BNVA) | payer MEDICARE, MEDICAID, SELFPAY | PROVIDERS: PCP Internal Medicine; Visit Provider Internal Medicine ==

== ENCOUNTER 2024-07-17 12:54 | Outpatient (REF) | payer MEDICARE, MEDICAID, SELFPAY | END 2024-07-17 12:55 | disposition home or self-care (01) | LOC: HO.US 12:54 | PROVIDERS: PCP Internal Medicine; Visit Provider Nurse Practitioner Family | DX: N20.0 Calculus of kidney (principal); N28.1 Cyst of kidney, acquired | CPT/HCPCS: 76775 ==

== ENCOUNTER → 2024-07-17 12:56 | Outpatient (BNV) | payer MEDICARE, MEDICAID, SELFPAY | PROVIDERS: PCP Internal Medicine; Visit Provider Radiology Diagnostic Radiology | DX: N28.1 Cyst of kidney, acquired (principal) | CPT/HCPCS: 76775 ==

== ENCOUNTER 2024-08-04 09:23 | Outpatient (AMB) | payer MEDICARE, SELFPAY ==
--- NOTE | 2024-08-04 09:54 | A.OFFVIS_ITS ---
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 Allergies adalimumab [From Humira] Adverse Reaction (Verified 08/04/24 10:42) sleepy pregabalin [From Lyrica] Adverse Reaction (Verified 08/04/24 10:42) Dizzyness Medication List - Last Reconciled 08/04/24 by LEE ToussaintP- albuterol sulfate 90 mcg/actuation (Ventolin HFA) 2 puffs PO Q4-6H PRN aspirin (Adult Aspirin Regimen) 81 mg PO DAILY PRN bethanechol chloride 50 mg PO BID 90 days Breo Ellipta 100-25 mcg/dose (fluticasone furoate-vilanterol) 1 ea PO DAILY NS carbamazepine ER 200 mg PO BEDTIME carvedilol 25 mg PO BID finasteride 5 mg PO DAILY 90 days gabapentin 100 mg PO DAILY PRN 90 days glucagon 3 mg/actuation (Baqsimi) mg intranasal hydrocodone-acetaminophen 5-325 mg 1 tab PO DAILY PRN 30 days insulin aspart U-100 70 units subcut DAILY insulin lispro (Humalog U-100 Insulin) 1 sliding scale dose subcut USEASDIRECTD ipratropium-albuterol 0.5 mg-3 mg(2.5 mg base)/3 mL 3 mL inhalation Q6-8H PRN 30 days ipratropium-albuterol 0.5 mg-3 mg(2.5 mg base)/3 mL 3 mL inhalation Q4H PRN 30 days lactulose 20 grams (30 mL) PO DAILY PRN lisinopril 40 mg PO DAILY metoclopramide HCl (Reglan) 10 mg PO Q6H PRN mirabegron ER (Myrbetriq) 25 mg PO DAILY 90 days potassium citrate ER 10 mEq PO TID rosuvastatin 40 mg PO DAILY sennosides-docusate sodium 8.6-50 mg (Senna Plus) 2 tab-caps (2 x 8.6-50 mg) PO BEDTIME sildenafil (Viagra) 100 mg PO DAILY PRN simethicone (Gas Relief (simethicone)) 125 mg PO BEDTIME Spiriva with HandiHaler (tiotropium bromide) 1 cap inhalation DAILY NS tamsulosin 0.4 mg PO DAILY 90 days HPI Comments Details: Simone is a very pleasant 64-year-old male patient of Dr. Martinez. He has a past medical history of carpal tunnel syndrome, chronic kidney disease, COPD, coronary artery disease, diabetes type 1, diabetic neuropathy, eczema, hypercholesteremia, and hypertension. He presents to the office today for follow-up of his incomplete bladder emptying, weak stream, erectile dysfunction, overactive bladder, and diabetic cystopathy. In discussion with the patient today he reports to be doing and feeling well. He reports to be happy with his current voiding parameters on 0.4 mg of Flomax daily, bethanechol 50 mg b.i.d. and Myrbetriq 25 mg daily. In office urinalysis results reviewed with the patie nt today. PVR 0 mL's. Recent renal ultrasound results reviewed with the patient today..... We discussed initiation of finasteride given previous retroperitoneal ultrasound 09/26 noting bilateral kidneys with no calculi or hydronephrosis. There is a 1.0 cm simple cyst in the lower pole of the right kidney that requires no imaging follow-up per radiology report. There is a 1.3 cm septated cyst in the mid left kidney. The bladder is partially distended. Bladder ureteral jets are demonstrated. Pre void bladder volume is approximately 110 mL. Postvoid bladder volume is approximately 100 mL. The prostate is enlarged and measures approximately 52 mL. He continues with good emptying with combination therapy. When asked he denies any bothersome urinary issues or concerns. He reports follo wing up with Nephrology and has started potassium supplements Dr Perez. Will fax over most recent renal ultrasound as well as retroperitoneal ultrasound per patient request at [phone]. He otherwise offers no other issues or concerns at this time. PSAs are as follows: 10/26 1.3, 02/24 1.4, 06/26 2.9 PREVIOUS OFFICE NOTE----- BPH with incomplete emptying progressive symptoms - urgency frequency with leakage tried tamsulosin 0.4 with minimal impact background of type 1 diabetes since 6 years old PSA 07/24 1.4, 10/26 1.3 symptoms at presentation - weakness of stream, incomplete emptying, hesitancy Cystoscopy - 03/23 small prostate with high residual Imaging - 09/24 CT scan 5 mm right stone Overactive bladder Diabetic cystopathy Initial symptoms include nocturia x3 Good response to Myrbetriq with decrease in nocturia to 1 time per night PFSH Medical History Urinary frequency COPD exacerbation Bloating Hypoglycemia Chronic constipation Tinea pedis, left Hx of fracture of femur Eczema Cholelithiasis Carpal tunnel syndrome Ankle fracture Diabetes mellitus type 1 Chronic kidney disease (CKD) stage G2/A3, mildly decreased glomerular filtration rate (GFR) between 60-89 mL/min/1.73 square meter and albuminuria creatinine ratio greater than 300 mg/g Hypercholesterolemia Diabetic neuropathy COPD (chronic obstructive pulmonary disease) Coronary artery disease Hypertension Surgical History Hx of colonoscopy Hx of eye surgery Hx of appendectomy H/O umbilical hernia repair History of cholecystectomy History of elbow surgery History of carpal tunnel release Family History Father Hypertension Stroke CVD (cerebrovascular disease) Mother Hypertension CVD (cerebrovascular disease) Diabetes Sister HX: breast cancer Paternal Grandfather Colon cancer Social History Housing: House Alcohol intake: former Patient Tobacco Use Status: Former Tobacco user Tobacco use type: Cigarette Years Smoked: 2002 quit 08/12 e-Cigarette/Vaping Use: Never Used Second Hand Smoke Exposure: No Substance Use Type: Marijuana service: No Current occupational status: disabled Cognitive needs: No Hearing needs: No Vision needs: Yes Review of Systems Const Reports as per HPI Eyes Reports no additional complaints ENT Reports no additional complaints Card Reports as per HPI Resp Reports as per HPI GI Reports no additional complaints Reports as per HPI Musc Reports no additional complaints Neuro Reports no additional complaints Psych Reports no additional complaints Endo Reports as per HPI Physical Exam Const General: cooperative, comfortable, no acute distress, well developed, alert and awake Orientation/consciousness: patient oriented x3 HEENT Head: Yes normal to inspection, Yes normocephalic and Yes atraumatic Ears: hearing grossly normal bilaterally Eyes General: appearance normal, both eyes and all related structures Neck Neck: Yes normal visual inspection and Yes trachea midline Chest Chest palpation & inspection: normal inspection of the chest Resp Effort & Inspection: normal respiratory effort and able to speak in complete sentences Cardio Rate: regular rate GI Inspection: Yes normal to inspection General: Yes no CVA tenderness Back/Spine/Pelvis Back: no CVA tenderness Skin General skin exam: no rashes or lesions noted Neuro General: patient oriented x3 Extrem General: Yes normal to inspection Psych Appearance: grossly normal and well kempt Mental Status: mental status grossly normal Speech and movement: Normal speech and movement present and Clear speech present Affect: normal affect Attitude: cooperative Thought process: Normal thought process present Thought content: Normal thought content present Insight: Good insight present (Psych) Judgement: Good judgement present (Psych) Office Procedures Post Void Residual Post Residual Void Post Void Residual (PVR): 0 [id number]-[id number] Void Residual by ultrasound Results AMB Urinalysis, Automated UA Leukoctes 0 Christine/uL Last Edit by [employer] on 08/04/24 10:26 UA Nitrite Last Edit by [employer] on 08/04/24 10:26 UA Urobilinogen 0.2 mg/dL Last Edit by [employer] on 08/04/24 10:26 UA Protein 30 mg/dL Last Edit by [employer] on 08/04/24 10:26 UA pH 6.0 Last Edit by [employer] on 08/04/24 10:26 UA Blood 0 Stevan/uL Last Edit by [employer] on 08/04/24 10:26 UA Specific Buckner 1.020 Last Edit by [employer] on 08/04/24 10:26 UA Ketone Last Edit by [employer] on 08/04/24 10:26 UA Bilirubin 0 mg/dL Last Edit by [employer] on 08/04/24 10:26 UA Glucose 0 mg/dL Last Edit by [employer] on 08/04/24 10:26 Results Reviewed Results Reviewed: Laboratory Last Values Urine pH (Auto) 6.0 08/04/24 10:24 Specific Buckner (Auto) 1.020 08/04/24 10:24 Urine Protein (Auto) 30 mg/dL 08/04/24 10:24 Glucose (UA)(Auto) 0 mg/dL 08/04/24 10:24 Urine Blood (Auto) 0 Stevan/uL 08/04/24 10:24 Urine Bilirubin (Auto) 0 mg/dL 08/04/24 10:24 Urine Urobilinogen (Auto) 0.2 mg/dL 08/04/24 10:24 Leukocyte Esterase (Auto) 0 Christine/uL 08/04/24 10:24 Assessment & Plan Assessment & Plan (1) Renal calculi: Comment: 2020 Code(s): N20.0 - Calculus of kidney Category: Medical (2) Urinary retention with incomplete bladder emptying: Code(s): R33.9 - Retention of urine, unspecified Category: Medical (3) Weak urinary stream: Code(s): R39.12 - Poor urinary stream Category: Medical (4) BPH (benign prostatic hyperplasia): Code(s): N40.0 - Benign prostatic hyperplasia without lower urinary tract symptoms Category: Medical Qualifiers: Lower urinary tract symptom presence: symptoms present Lower urinary tract symptom detail: weak urinary stream Qualified Code(s): N40.1 - Benign prostatic hyperplasia with lower urinary tract symptoms; R39.12 - Poor urinary stream (5) Erectile dysfunction: Code(s): N52.9 - Male erectile dysfunction, unspecified Category: Medical Plan In office urinalysis results reviewed with the patient today; as noted above. PVR 0 mL. Continue Myrbetriq, bethanechol, and Flomax as discussed and prescribed; refill provided. Start finasteride as discussed and prescribed. Recent renal imaging results reviewed with the patient today; as noted above; will send to Nephrology. Recent PSA results reviewed with the patient today; as noted above. Will continue with surveillance monitoring of renal cysts as well as nephrolithiasis. Discussed, educated, and stressed the importance of managing diabetes for improvement in lower urinary tract symptoms, erectile dysfunction, and overall health and well-being. Discussed, educated, and stressed the importance of limiting/quitting nicotine dependence for overall health and well-being. Will obtain PSA in 6 months Follow-up in 6 months with PSA and PVR; or sooner with any issues, concerns, and or questions. Orders: Orders Prostate Specific Antigen 6 Months N40.0 - Benign prostatic hyperplasia without lower urinary tract symptoms AMB Urinalysis Automated Today Z13.9 - Encounter for screening, unspecified AMB Post Void Residual by ultrasound Today R33.9 - Retention of urine, unspecified Medications: New finasteride 5 mg PO DAILY 90 tabs 2RF 90 days N40.1 - Benign prostatic hyperplasia with lower urinary tract symptoms, R33.9 - Retention of urine, unspecified Patient Instructions: The patient had an opportunity to ask questions regarding the treatment plan. All questions were answered. Physical exam, labs, and imaging were discussed and reviewed in detail. As well as risks, benefits, and discussion of treatment choices. No major barriers to understanding were identified. The patient expressed understanding and agreement with the above treatment plan. The patient was made aware they should contact our office by phone for worsening of their current condition, the appearance of new symptoms, or with any questions or concerns. Compliance is encouraged with any medications and follow up testing that is ordered. It is a privilege to be allowed the opportunity to participate in? your urological care.? Again, if you have any questions or concerns If you have any questions or concerns please do not hesitate to contact me. The office is [phone]. This note is constructed using voice recognition software. While every effort has been made to ensure accuracy dry press operator errors may have been included. Yours sincerely, [place] Toussaint Coding Level of Care Code Est Pt Level 4 (45263) Complex EM visit Add On G2211 Diagnoses Renal calculi N20.0 Urinary retention with incomplete bladder emptying R33.9 Weak urinary stream R39.12 Benign prostatic hyperplasia with weak urinary stream N40.1; R39.12 Lower urinary tract symptom presence: symptoms present Lower urinary tract symptom detail: weak urinary stream Erectile dysfunction N52.9 CPT Codes Post Residual Void - PVR CPT Code: 57164-Fcbi Void Residual by ultrasound ([id number])
== END 2024-08-04 10:37 | disposition home or self-care (01) ==
PROVIDERS: PCP Internal Medicine; Visit Provider Nurse Practitioner Family
DX: Z13.9 Encounter for screening, unspecified (principal)

== ENCOUNTER → 2024-08-04 09:23 | Outpatient (BNVA) | payer MEDICARE, SELFPAY | PROVIDERS: PCP Internal Medicine; Visit Provider Nurse Practitioner Family | DX: N40.1 Benign prostatic hyperplasia with lower urinary tract symptoms (principal); R39.12 Poor urinary stream; R33.8 Other retention of urine; N52.9 Male erectile dysfunction, unspecified; N20.0 Calculus of kidney; N28.1 Cyst of kidney, acquired; Z79.899 Other long term (current) drug therapy | CPT/HCPCS: 51798; 81003; 99212 ==

== ENCOUNTER 2024-08-16 12:43 | Emergency (ER) | payer MEDICARE, SELFPAY ==
[2024-08-16] VITALS (7 sets, daily range): BP systolic 119–172; BP diastolic 0–81; PULSE 83–95; RESP 16–22; TEMP 37.2–37.3; O2SAT 93–100; BMI 21.3
--- NOTE | ~2024-08-16 | XR_ITS ---
EXAMINATION: XR CHEST CLINICAL INFORMATION: sob/cough COMPARISON: Prior chest November 2022 TECHNIQUE: 2 views of the chest were obtained. FINDINGS: There is persistent small right pleural effusion unchanged. Lungs are clear. Cardiomediastinal silhouette normal. Osseous structures are unremarkable. XR/XR chest 2V IMPRESSION: Persistent small right pleural effusion unchanged. Electronically signed by: Mikel Springer MD 08/16/2024 04:24 PM EST
--- NOTE | 2024-08-16 12:55 | ECG_ITS ---
Test Reason : SOB Blood Pressure : / mmHG Vent. Rate : 084 BPM Atrial Rate : 084 BPM P-R Int : 144 ms QRS Dur : 082 ms QT Int : 368 ms P-R-T Axes : 010 131 067 degrees QTc Int : 434 ms Normal sinus rhythm Left posterior fascicular block Abnormal ECG When compared with ECG of 02-DEC-2013 11:03, No significant change was found Referred By: Nanette Whipple Electronically Signed By:GREY CASTELLANOS MD
--- NOTE | 2024-08-16 12:58 | ED_ITS ---
HPI - SOB/Dyspnea General Chief Complaint: Dyspnea Stated Complaint: SOB PER EMS Time Seen by Provider: 08/16/24 12:49 Source: patient, EMS, RN notes reviewed and old records reviewed Mode of arrival: EMS History of Present Illness ED Provider: Nanette Whipple PA-C HPI Narrative: 64-year-old male with a past medical history of COPD, chronic constipation, eczema, diabetes, HLD, HTN, CAD, CKD, presenting to the ED complaining of nonproductive cough and SOB since last night. Per EMS patient was found to be 85% on RA put on 2L NC, & given DuoNeb in route to ED. Denies fever, chills, chest pain, travel, sick contacts, pedal edema, anticoagulation use, history of clots Related Data Home Medications ?Medication ?Instructions ?Recorded ?Confirmed insulin lispro 100 unit/mL 1 sliding scale dose subcut 08/17/20 07/04/24 subcutaneous solution (Humalog USEASDIRECTD U-100 Insulin) aspirin 81 mg tablet,delayed 81 mg PO DAILY PRN 06/08/22 07/04/24 release (Adult Aspirin Regimen) glucagon 3 mg/actuation nasal mg intranasal 06/08/22 07/04/24 spray (Baqsimi) insulin aspart U-100 100 unit/mL 70 unit subcut DAILY 03/02/23 07/04/24 subcutaneous solution potassium citrate 10 mEq (1,080 10 meq PO TID 10/23/23 07/04/24 mg) tablet,extended release carvedilol 12.5 mg tablet 25 mg PO BID 06/24/24 07/04/24 Previous Rx's ?Medication ?Instructions ?Recorded metoclopramide HCl 10 mg tablet 10 mg PO Q6H PRN Constipation #10 06/24/21 (Reglan) tabs simethicone 125 mg chewable tablet 125 mg PO BEDTIME #90 tabs 08/01/21 (Gas Relief (simethicone)) sildenafil 100 mg tablet (Viagra) 100 mg PO DAILY PRN Erectile 10/23/22 Dysfunction #10 tabs ipratropium 0.5 mg-albuterol 3 mg 3 ml inhalation Q6-8H PRN wheezing 12/21/22 (2.5 mg base)/3 mL nebulization 30 days #180 mL soln lactulose 20 gram/30 mL oral 20 g (30 mL) PO DAILY PRN 05/16/23 solution constipation #1,200 mL lisinopril 40 mg tablet 40 mg PO DAILY #90 tabs 10/29/23 carbamazepine 200 mg 200 mg PO BEDTIME #90 tabs 12/24/23 tablet,extended release,12 hr sennosides 8.6 mg-docusate sodium 2 tab-cap (2 x 8.6-50 mg) PO 02/05/24 50 mg tablet (Senna Plus) BEDTIME #60 tabs mirabegron 25 mg tablet,extended 25 mg PO DAILY 90 days #90 tabs 03/18/24 release 24 hr (Myrbetriq) tamsulosin 0.4 mg capsule 0.4 mg PO DAILY 90 days #90 caps 03/18/24 ipratropium 0.5 mg-albuterol 3 mg 3 ml inhalation Q4H PRN 04/22/24 (2.5 mg base)/3 mL nebulization wheezing/CHEST CONGESTION 30 days soln #180 mL rosuvastatin 40 mg tablet 40 mg PO DAILY #90 tabs 04/30/24 Breo Ellipta 100 mcg-25 mcg/dose 1 ea PO DAILY #60 ea 05/08/24 powder for inhalation (fluticasone furoate-vilanterol) gabapentin 100 mg capsule 100 mg PO DAILY PRN pain 90 days 06/08/24 #180 caps bethanechol chloride 50 mg tablet 50 mg PO BID 90 days #180 tabs 07/07/24 albuterol sulfate 90 mcg/actuation 2 puff PO Q4-6H PRN for wheezing 07/10/24 aerosol inhaler (Ventolin HFA) #18 grams hydrocodone 5 mg-acetaminophen 325 1 tab PO DAILY PRN pain 30 days 07/10/24 mg tablet #30 tabs Spiriva with HandiHaler 18 mcg and 1 cap inhalation DAILY #30 caps 07/14/24 inhalation capsules (tiotropium bromide) finasteride 5 mg tablet 5 mg PO DAILY 90 days #90 tabs 08/04/24 Allergies Allergy/AdvReac Type Severity Reaction Status Date / Time adalimumab [From Humira] AdvReac sleepy Verified 08/16/24 13:05 pregabalin [From Lyrica] AdvReac Dizzyness Verified 08/16/24 13:05 Review of Systems 2 Review of Systems: Yes all other systems are reviewed and are negative Constitutional: Constitutional: Reports as per [facility] Past Medical History Attestation statement: The following information was validated with the patient. Source: old records reviewed Medical History Urinary frequency COPD exacerbation Bloating Hypoglycemia Chronic constipation Tinea pedis, left Hx of fracture of femur Eczema Cholelithiasis Carpal tunnel syndrome Ankle fracture Diabetes mellitus type 1 Chronic kidney disease (CKD) stage G2/A3, mildly decreased glomerular filtration rate (GFR) between 60-89 mL/min/1.73 square meter and albuminuria creatinine ratio greater than 300 mg/g Hypercholesterolemia Diabetic neuropathy COPD (chronic obstructive pulmonary disease) Coronary artery disease Hypertension Surgical History Hx of colonoscopy Hx of eye surgery Hx of appendectomy H/O umbilical hernia repair History of cholecystectomy History of elbow surgery History of carpal tunnel release Family History Family History Father Hypertension Stroke CVD (cerebrovascular disease) Mother Hypertension CVD (cerebrovascular disease) Diabetes Sister HX: breast cancer Paternal Grandfather Colon cancer Social History Social History Housing: House Alcohol intake: former Patient Tobacco Use Status: Former Tobacco user Tobacco use type: Cigarette Years Smoked: 2002 quit 08/12 Smoked in Last 30 Days: No e-Cigarette/Vaping Use: Never Used Second Hand Smoke Exposure: No Use of substances other than those prescribed or required for medical reasons: Yes Substance Use Type: Marijuana Substance Use Frequency: Daily Advance Directives: No Advance Directives Information Provided: Yes Do you have a plan to hurt others: No Plan service: No Current occupational status: disabled Cognitive needs: No Hearing needs: No Vision needs: Yes Physical Exam 2 Vital Signs: Vital Signs: Last Vital Signs Temp 99.1 F 08/16/24 13:33 Pulse 93 08/16/24 15:55 Resp 16 08/16/24 16:07 BP 119/70 08/16/24 15:55 Pulse Ox 94 08/16/24 15:55 O2 Del Method Room Air 08/16/24 15:55 BMI result Body Mass Index 21.3 Const: General: cooperative, healthy appearing and no acute distress O rientation/consciousness: patient oriented x3 Limitations: no limitations HEENT: Head: Yes normal to inspection and Yes atraumatic Ears: hearing grossly normal bilaterally General nose exam: Normal external nose present Face and sinus: Yes normal facial exam Eyes: General: appearance normal, both eyes and all related structures EOM: EOMs intact bilaterally Neck: Neck: Yes normal visual inspection and Yes no meningeal signs Resp: Effort & Inspection: normal respiratory effort and no respiratory distress Auscultation: no crackles, wheezes expiratory wheezes and diminished lung sounds bilateral in the lower lung yang Cardio: Rate: regular rate Heart sounds: S1 normal heart sound present and S2 normal heart sound present GI: Inspection: Yes normal to inspection Palpation (GI): Soft to palpation, nontender, no guarding and not rigid : General: Yes no CVA tenderness Back/Spine/Pelvis: Back: no CVA tenderness Skin: Rashes: no rashes Wounds: no wounds Neuro: General: patient oriented x3, tone normal and no meningeal signs C ranial nerves: Yes CN's II-XII intact bilaterally Gait exam (Neuro): Normal gait present Extrem: General: Yes normal to inspection, Yes no pedal edema and Yes no calf tenderness Course Course Course Narrative: -1435--no leukocytosis. H/H stable. BUN chronically elevated. Initial troponin 14.6 > will obtain repeat -viral studies negative >1442--on re-evaluation lungs with better air movement after DuoNeb. Satting 93% on room air > increases to 97% with good breaths -1630--ED care transferred to [facility] pending repeat troponin, chest x-ray, ambulation with pulse ox trial and re-evaluation. Dispo per results Medications Administered Discontinued Medications Generic Name Dose Route Start Last Admin Trade Name Freq PRN Reason Stop Dose Admin Albuterol/Ipratropium 3 ml 08/16/24 16:04 08/16/24 16:11 Albuterol/Iprat 2.5/0.5mg 3 Ml Ampul.Neb INHALE 08/16/24 16:05 3 ml ONCE ONE Administration Levalbuterol HCl 3.75 mg/ 0 mg 08/16/24 13:18 08/16/24 13:35 Ipratropium [place] 0.5 mg INHALE 08/16/24 13:19 1 dose ONCE ONE Administration Methylprednisolone Sodium Succinate 60 mg 08/16/24 13:05 08/16/24 13:17 Methylprednisolone Sod Succ 125 Mg/2 Ml Vial IVPUSH 08/16/24 13:06 60 mg ONCE ONE Administration Medical Decision Making Medical Decision Making [facility] Narrative: 64-year-old male with a past medical history of COPD, chronic constipation, eczema, diabetes, HLD, HTN, CAD, CKD, presenting to the ED complaining of nonproductive cough and SOB since last night. On exam vital signs stable, satting 96% on room air, talking in complete sentences, diminished lung sounds bibasilarly with faint expiratory wheeze. No pedal edema or calf tenderness. Concern for COPD exacerbation vs viral illness vs pneumonia. Lower suspicion for ACS, PE or DVT. Unlikely CHF Plan: EKG, labs, CXR, viral studies, ED bronchodilator protocol, re-evaluate Please refer to course for remaining clinical decision making, interpretation of labs/imaging results, and discussions with consultants and/or family members. Differential Diagnosis Differential Diagnoses: The differential diagnosis associated with the presentation includes As above Admission/Observation Consideration of admission/observation: Escalation of care including admission/observation considered Lab Data [facility] Lab Attestation statement: I reviewed the patient's lab results. 08/16/24 13:29 08/16/24 13:29 Labs: Lab Results 08/16/24 Range/Units 13:29 WBC 6.4 (4.8-10.8) X10*3/uL RBC 4.43 L (4.60-5.80) X10*6/uL Hgb 13.9 L (14.0-18.0) g/dl Hct 40.9 L (42.0-52.0) % MCV 92.3 (80.0-98.0) fL MCH 31.4 (27.0-33.0) pg MCHC 34.0 (31.0-36.0) g/dl RDW 13.0 (11.0-16.0) % Plt Count 168 (160-400) X10*3/uL MPV 8.6 L (9.4-12.4) fL Immature Gran % (Auto) 0.3 (0.0-0.4) % Neut % (Auto) 71.4 (45-73) % Lymph % (Auto) 14.5 L (20-40) % Sunflower % (Auto) 11.7 H (2-11) % Eos % (Auto) 1.6 (0-4) % Baso % (Auto) 0.5 (0-2) % Lymph # (Auto) 0.9 L (1.2-4.9) X10*3/uL Sunflower # (Auto) 0.8 (0.1-1.2) X10*3/uL Eos # (Auto) 0.1 (0.0-0.4) X10*3/uL Baso # (Auto) 0.0 (0.0-0.2) X10*3/uL Abs Immat Gran (auto) 0.02 (0.00-0.03) X10*3/uL Absolute Neuts (auto) 4.6 (2.0-8.3) x10*3/uL Absolute Nucleated RBC 0.000 (0.0-0.012) X10*3/uL Nucleated RBC % (auto) 0.0 (0.0-0.2) /100WBC PT 11.1 (10.9-12.4) SEC INR 1.0 (0.9-1.1) Sodium 139 (135-145) mmol/L Potassium 4.3 (3.3-5.1) mmol/L Chloride 104 (96-108) mmol/L Carbon Dioxide 25 (22-29) mmol/L Anion Gap 14 (12-20) BUN 22 H (9-16) mg/dL Creatinine 1.40 (0.5-1.4) mg/dL Estim Creat Clear Calc 39.3 Estimated GFR 51 Random Glucose 157 H (60-115) mg/dL Calcium 8.7 (8.4-10.2) mg/dL Magnesium 2.0 (1.6-2.6) mg/dL Total Bilirubin 0.3 (0.0-1.0) mg/dL Direct Bilirubin 0.1 (0.0-0.5) mg/dL AST 22 (5-37) U/L ALT 16 (0-40) U/L Alkaline Phosphatase 92 (39-117) U/L Troponin I High Sens 14.6 (<3.5-35.0) ng/L B-Natriuretic Peptide 21 (<100) pg/mL Total Protein 6.7 (6.5-8.0) g/dL Albumin 3.7 (3.5-5.0) g/dL Influenza Type A (PCR) NEGATIVE (Negative) Influenza Type B (PCR) NEGATIVE (Negative) RSV RNA Qual (PCR) NEGATIVE (Negative) SARS-CoV-2 RNA (RT-PCR) NEGATIVE (Negative) Independent Interpretation I performed an independent interpretation of an: EKG and Plain X-Ray Radiology Impression Discussion of test interpretation with radiology: I have reviewed the radiologist's reading. Independent Historian Clinical information obtained from an independent historian. History obtained from or confirmed by: EMS External Record Review External record reviewed: Inpatient record, Office record, Outpatient record, Prior outpatient labs, Prior outpatient radiology, Primary care record and Outside ED record Tests considered The following testing was considered but not selected: As above Prescription Management I considered prescription management with: Antibiotic Chronic Conditions Patient?s care impacted by: Diabetes and Other (COPD) Social Determinants Patient?s care significantly limited by Social Determinants of Health including: Problems related to primary support group and Other Social Determinant of Health Discharge Plan Discharge Clinical Impression: Acute exacerbation of chronic obstructive airways disease Patient Disposition: Still a Patient Prescriptions: No Action lactulose 20 gram/30 mL solution 20 g PO DAILY PRN (Reason: constipation) Qty: 1200 0RF lisinopril 40 mg tablet 40 mg PO DAILY Qty: 90 3RF carbamazepine 200 mg tablet extended release 12 hr 200 mg PO BEDTIME Qty: 90 3RF Myrbetriq 25 mg tablet extended release 24 hr 25 mg PO DAILY 90 Days Qty: 90 1RF tamsulosin 0.4 mg capsule 0.4 mg PO DAILY 90 Days Qty: 90 1RF rosuvastatin 40 mg tablet 40 mg PO DAILY Qty: 90 3RF fluticasone furoate-vilanterol [Breo Ellipta] 100-25 mcg/dose blister with device 1 ea PO DAILY Qty: 60 5RF gabapentin 100 mg capsule 100 mg PO DAILY PRN (Reason: pain) 90 Days Qty: 180 2RF bethanechol chloride 50 mg tablet 50 mg PO BID 90 Days Qty: 180 1RF albuterol sulfate [Ventolin HFA] 90 mcg/actuation HFA aerosol inhaler 2 puff PO Q4-6H PRN (Reason: for wheezing) Qty: 18 0RF hydrocodone-acetaminophen 5-325 mg tablet 1 tab PO DAILY PRN (Reason: pain) 30 Days Qty: 30 0RF Spiriva with HandiHaler 18 mcg capsule, w/inhalation device 1 cap inhalation DAILY Qty: 30 0RF aspirin [Adult Aspirin Regimen] 81 mg tablet,delayed release (DR/EC) 81 mg PO DAILY PRN metoclopramide HCl [Reglan] 10 mg tablet 10 mg PO Q6H PRN (Reason: Constipation) Qty: 10 0RF simethicone [Gas Relief (simethicone)] 125 mg tablet,chewable 125 mg PO BEDTIME Qty: 90 0RF sennosides-docusate sodium [Senna Plus] 8.6-50 mg tablet 2 tab-cap PO BEDTIME Qty: 60 3RF sildenafil [Viagra] 100 mg tablet 100 mg PO DAILY PRN (Reason: Erectile Dysfunction) Qty: 10 4RF Rx Instructions: administer 30 minutes to 4 hours before activity insulin lispro [Humalog U-100 Insulin] 100 unit/mL solution 1 sliding scale dose subcut USEASDIRECTD Baqsimi 3 mg/actuation spray,non-aerosol intranasal insulin aspart U-100 100 unit/mL solution 70 unit subcut DAILY ipratropium-albuterol 0.5 mg-3 mg(2.5 mg base)/3 mL solution for nebulization 3 ml inhalation Q6-8H PRN (Reason: wheezing) 30 Days Qty: 180 3RF ipratropium-albuterol 0.5 mg-3 mg(2.5 mg base)/3 mL solution for nebulization 3 ml inhalation Q4H PRN (Reason: wheezing/CHEST CONGESTION ) 30 Days Qty: 180 4RF finasteride 5 mg tablet 5 mg PO DAILY 90 Days Qty: 90 2RF potassium citrate 10 mEq (1,080 mg) tablet extended release 10 meq PO TID carvedilol 12.5 mg tablet 25 mg PO BID Print Language: [place]
[2024-08-16] MEDS: methylPREDNISolone Sod Succ 125 MG/2 ML VIAL 60 MG IVPUSH (13:17)
[2024-08-16 13:35] LABS: MANUAL DIFF FLAG NO
[2024-08-16] MEDS: levalbuterol HCL 3.75 MG, Ipratropium Bromide 0.5 MG INHALE (13:35)
[2024-08-16 13:36] LABS: Basophils Percent Auto 0.5 % (0-2); Eosinophils Absolute Auto 0.1 X10*3/uL (0.0-0.4); Eosinophils Percent Auto 1.6 % (0-4); Hematocrit 40.9 % (42.0-52.0); Hemoglobin 13.9 g/dl (14.0-18.0); Imm Gran Abs Auto 0.02 X10*3/uL (0.00-0.03); Imm Gran Pct Auto 0.3 % (0.0-0.4); Lymphocytes Absolute Auto 0.9 X10*3/uL (1.2-4.9); Lymphocytes Percent Auto 14.5 % (20-40); Mean Corpuscular Hemoglobin 31.4 pg (27.0-33.0); Mean Corpuscular Volume 92.3 fL (80.0-98.0); Mean Platelet Volume 8.6 fL (9.4-12.4); Monocytes Absolute Auto 0.8 X10*3/uL (0.1-1.2); Monocytes Percent Auto 11.7 % (2-11); Neutrophils Absolute Auto 4.6 x10*3/uL (2.0-8.3); Neutrophils Percent Auto 71.4 % (45-73); Platelet Count 168 X10*3/uL (160-400); Red Blood Count 4.43 X10*6/uL (4.60-5.80); White Blood Count 6.4 X10*3/uL (4.8-10.8)
--- OUTSIDE RECORDS SUMMARY | 2024-08-16 13:40 | XMS_ITS ---
[facility] Organization [facility] [place] Address [address] [place] [address] Care Team Providers Care Pyrotechnic Assembler Name Role Phone Rhea Martinez Primary Care Provider David Vazquez Unavailable [phone] Allergies Allergen (clinical drug ingredient) Drug/Non Drug Allergy documented on EMR Reaction Allergy Type Onset Date Status acetaminophen Tylenol Unknown Drug Allergy Act john Cortisone raises BP Drug Allergy Active REASON FOR VISIT Wart(s), Painful nail(s) aggrevated by shoes and causing difficulty standing/walking. Medications Medication SIG (Take, Route, Frequency, Duration) Notes Start Date End Date Status Carvedilol 25 MG 1 tablet with food O ral Twice a day for 30 days Active Extra Depth Diabetic Shoes with 3 Pair Custom heat-molded multi-density innersoles for 1 year Dx: 09/20/2022 Active Extra Depth Diabetic Shoes with 3 Pair Custom heat-molded multi-density innersoles for 1 year Dx: Active Rosuvastatin Calcium Active Spiriva HandiHaler A ctive Breo Ellipta Active Gabapentin Active carBAMazepine Active Lisinopril Active Insulin Active Potassium Active Bethanechol Chloride Active albuterol Active Social History Tobacco Use: Social History Observation Description Date Details (start date - stop date) Former Smoker NA - NA Tobacco Use/Smoking Question Answer Notes Are you a: former smoker Additional Findings: Tobacco Non-User Current no n-smoker Alcohol Screen Question Answer Notes Did you have a drink containing alcohol in the p ast year? No Points 0 Interpretation Negative Tobacco use other than smoking: Question Answer Notes Are you an other tobacco user? No Vital Signs Height 5ft 3in in 06/02/2024 Weight 125 lbs 06/02/2024 BMI 22.14 kg/m2 06/02/2024 Blood pressure systolic 129 mm Hg 06/02/20 24 Blood pressure diastolic 80 mm Hg 024 Encounters Encounter Location Date Provider Diagnosis [facility] [place] [address] [place] [address] 06/02/2024 David Ndiaye Other viral warts B0 7.8 ; Pain in left foot M79.672 ; Pain in right foot M79.671 ; Type 1 diabetes mellitus with diabetic polyneuropathy E10.42 ; Pain in right toe(s) M79.674 ; Tinea unguium B35.1 ; Pain in left toe(s) M79.675 ; Skin disease L98.9 ; Other hammer toe(s) (acquired), left foot M20.42 ; Other hammer toe(s) (acquired), right foot M20.41 and Ingrowing nail L60.0 Assessments Encounter Date Diagnosis (ICD Code) Assessment Notes Treatment Notes Treatment Clinical Notes Section Notes 06/02/2024 Other viral warts (ICD-10 - B07.8) 06/02/2024 Pain in left foot (ICD-10 - M79.672) 06/02/2024 Pain in right foot (ICD-10 - M79.671) 06/02/2024 Type 1 diabetes mellitus with diabetic polyneuropathy (ICD-10 - E10.42) 06/02/2024 Pain in right toe(s) (ICD-10 - M79.674) 06/02/2024 Tinea unguium (ICD-10 - B35.1) 06/02/2024 Pain in left toe(s) (ICD-10 - M79.675) 06/02/2024 Skin disease (ICD-10 - L98.9) 06/02/2024 Other hammer toe(s) (acquired), left foot (ICD-10 - M20.42) 06/02/2024 Other hammer toe(s) (acquired), right foot (ICD-10 - M20.41) 06/02/2024 Ingrowing nail (ICD-10 - L60.0) Plan Of Treatment Medication Medication Name Sig Start Date Stop Date Notes Extra Depth Diabetic Shoes w ith 3 Pair Custom heat-molded multi-density innersoles for 1 year Dx: Next Appt Details Follow Up: 3 Months, Reason: Provider Name:Vivienne trotter, 08/25/2024 02:15:00 PM, [address] [facility], [place], [address], Procedure Notes * Category Sub-Category Detail Notes Debride Nail 6-10 Nail debridement Nail debridem ent performed extensively to reduce/remove overall nail length and girth, subungual debris, and necrotic tissue, by manual and electrical means with use of a nail nipper and/or dremel, to more viable healthy nail plate or bed tissue 6-10. Silver nitrate used for any petechial bleeding as necessary. Patient chooses, no pharmaceutical tx (55541) Keratoma Treatment Parring or Cutting o f Benign Hyperkeratotic Lesion(s) (-56) 2-4 Lesions - The Benign hyperkeratotic lesions, as described above were pared, and/or cut utilizing a sterile 15 blade, tissue nippers, and/or dremel - 50042 Progress Notes * Arun MCKINNEYOB:1960 (63 yo M)Acc No.[id number]:06/02/2024 Progress Note Patient:?Clarke Simone Provider:?Dvaid Ndiaye DPM :1960???Age:63 Y???Sex:Male Carrington e:06/02/2024 Address:[address] [place] [address] Pcp:Rhea Martinez Subjective: * Chief Complaints: * ???Wart(s) Painful nail(s) a ggrevated by shoes and causing difficulty standing/walking. * HPI: ???At Risk footcare:?Pt States Last PCP Visit:?Date?03/03/2024 ???Skin problems:?Nature:?tender , tender.?Location:?Bottom, Forefoot, B/L , Bottom, Forefoot, B/L .?Duration:?several years , several years.?Treatments:?dm shoes and inserts have helped , dm shoes and inserts have helped.?Wart:?Pt States Last PCP Visit:?Date:?03/03/2024 ???Ingrown toenail:?Nature:?tenderness.?Location:?Great toe, Right foot.?Duration:?a week.?Course:?worse.?Aggravated by:?any pressure, shoes.?Treatments:?previous sx age 9 with ped.? * ROS:?General/Constitutional:?Nausea?denies.?Vomiting?denies.?Hunger Thirst?denies.?Loss appetite?denies.?Chills?denies.?Fatigue?denies.?Fever?denies.?Night Sweats?denies.?Unexplained weight loss?denies.?Unexplained weight gain?denies.?HEENTM:?Dentures?denies.?Dizziness?denies.?Glasses/contacts?admits.?Retinopathy?ad mits.?Blurred/double vision?denies.?TMJ?denies.?Discharge/drainage?denies.?Implants?denies.?Sore throat?denies.?Dental implants?admits.?Hard of hearing ?denies.?Difficulty chewing/swallowing/speaking?denies.?Nose bleeds?denies.?Sore mouth?denies.?Respiratory:?On Oxygen?denies.?Pneumonia/pleurisy?denies.?Bronchitis?denies.?Emphysema?denies.?C oughing?denies.?Cough blood?denies.?Shortness of breath?admits.?Wheezing?denies.?Cardiovascular:?Pacemaker?denies.?MVP?denies.?WPW?denies.?CHF?denies.?Heart attack?denies.?Septal defect?denies.?Rapid beat?denies.?Chest pain ?denies.?Atrial Fib.?denies.?Murmur/Palpitations?denies.?Gastrointestinal:?Hemorrhoids?denies.?Stomach/Abdominal pain?denies.?Dark blood stool?denies.?Irritable bowel ?denies.?Constipation?admits.?Diarrhea?denies.?Hematology:?Swelling?denies.?Clots?denies.?Varicose Veins?denies.?Bruising?denies.?Bleeding problem?denies.?Genitourinary:?Blood urine?denies.?Frequent/Painfu/urination/bladder control?admits.?Kidney stones?admits.?Infection (UTI)?denies.?Nephropathy?admits.?sex trans dis (STD)?denies.?Prostate?admits.?Musculoskeletal:?Hammertoes?denies.?Bunions?denies.?Back Pain?denies.?Muscle Cramps/ Resting?denies.?Muscle cramps / walking?admits.?Generalized aches and pains?admits.?Weakness?denies.?Integ.:?Hays?denies.?Scars?denies.?Corns/calluses?admits.?Ingrown nails?admits.?Painful nails?denies.?Open Sores?denies.?Rashes?denies.?Neurologic:?Difficulty sleeping?admits.?Brain disorder?denies.?Numbness?denies.?Balance trouble?denies.?Confusion?denies.?Fainting/blackouts?denies.?Tingling?denies.?Tr emors?denies.? * Medical History:? * Surgical History:?Denies Pas t Surgical History * Hospitalization/Major Diagno stic Procedure:?Denies Past Hospitalization * Family History:?Mother: dece ased, foot problems, diagnosed with Family history of arthritis, Diabetic - NIDDM, Unspecified essential hypertension.?Father: , diagnosed with Unspecified essential hypertension, Unspecified cerebral artery occlusion with cerebral infarction.?Siblings: diagnosed with Other malignant neoplasm of unspecified site, Unspecified heart disease.? * Social History:?Tobacco Use:?Tobacco Use/Smoking?Are you a:?former smoker ?Additional Findings: Tobacco Non-User?Current non-smoker ?Tobacco use other than smoking?Are you an other tobacco user??No ???Drugs/Alcohol:?Drugs?Have you used drugs other than those for medical reasons in the past 12 months??Yes ?Marijuana??Yes ?Alcohol Screen?Did you have a drink containing alcohol in the past year??No ?Points?0 ?Interpretation?Negative ???Miscellaneous:?Caffeine: yes, frequency:, 4 cups per day. ?no Children, none. ?Exercise: yes, walking, housework, gardening/yard work. ?Marital status: single. 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 * Medications:?TakingExtra Dep th Diabetic Shoes with 3 Pair Custom heat-molded multi-density innersoles for 1 year Dx:Potassium albuterol Bethanechol Chloride Breo Ellipta carBAMazepine Gabapentin Insulin Lisinopril Spiriva HandiHaler Rosuvastatin Calcium Extra Depth Diabetic Shoes with 3 Pair Custom heat-molded multi-density innersoles for 1 year Dx:Carvedilol 25 MG Tablet 1 tablet with food Oral Twice a dayMedication List reviewed and reconciled with the patientTaking Extra Depth Diabetic Shoes with 3 Pair Custom heat-molded multi-density innersoles for 1 year Dx:Taking Potassium Taking albuterol Taking Bethanechol Chloride Taking Breo Ellipta Taking carBAMazepine Taking Gabapentin Taking Insulin Taking Lisinopril Taking Spiriva HandiHaler Taking Rosuvastatin Calcium Taking Extra Depth Diabetic Shoes with 3 Pair Custom heat-molded multi-density innersoles for 1 year Dx:Taking Carvedilol 25 MG Tablet 1 tablet with food Oral Twice a dayMedication List reviewed and reconciled with the patient * Allergies:?TylenolCortisone: raises BPyes[Allergies Verified] Objective: * Vitals:?Ht: 5ft 3in, Wt:125, BMI:22.14, Shoe size: 6.5, BP:129/80 mm Hg, BS: 87, Ht-cm: 160.02 cm, Wt-k.7 kg. * ???Past Orders: ???Lab:HEMOGLOBIN A1C (GLYCO HEMOGLOBIN) (Order Date - 03/03/2024) (Collection Date - 03/03/2024) ? Value Reference Range ?TOTAL HEMOGLOBIN (HGBA1C) 7.4 * Examination: ???Ophthalmology Referral: ?DIABETES EYE EXAM?Neurological: ?SENSORY:? Neurological exam demonstrates, reduced vibration sensation, 5.07 monofilament test performed at plantar aspects of 5 varied sites per foot shows sensation, reduced , B/L.?Vascular: ?DP PULSES(B):? 0/4, B/L.?PT PULSES(B):? 1/4, B/L.?CAPILLARY FILL TIME:?3 secs. per digit. B/L.?TROPHIC CONDITION-TEXTURE/ELASTICITY/TURGOR/HAIR GROWTH(B):?normal, B/L.?TEMPERTURE GRADIENT(C):?normal, B/L.?PIGMENTATION:?normal, B/L.?EDEMA(C):?absent, B/L.?TELANGECTASIA:?absent, B/L.?Nails: ?NAILS are:? Elongated, overgrown, dystrophic, lytic, greater than 3mm thick, discolored and friable with crumbly malodorous subungual debris, with dull to no pain on palpation due to neuropathy, 1-5 B/L.?Dermatologic: ?SKIN FINDINGS:? Skin exam reveals Keratotic lesion(s) located at, Plantar, T1, SUB MTH (s), 1, 2, Heel(s), B/L .?General Examination: ?GENERAL APPEARANCE:?pleasant, alert, well nourished, well developed, well hydrated, with good attention to hygene/body habitus, and in no acute distress.?ORIENTED:?person,place, and time.?FOOT EXAM:?Orthopedic: ?MUSCLE STRENGTH:?5/5 all groups in a symmetrical fashion , B/L.?FOOT MORPHOLOGY:? Pes Cavus structure, B/L.?DIGITAL DEFORMITIES:? Digital contracture, PIPJ, 2-5 B/L, incompl- reducable with WB, or to push-up test, no over, nor underlapping.?Ingrown Nail: ?INSPECTION:? Reveals nail incurvation, dull pain on palpation due to neuropathy, groove hypertrophy, Lateral nail border, T5.? Assessment: * Assessment: 1.?Other viral warts - B07.8 ?2.?Pain in left foot - M79.672?3.?Pain in right foot - M79.671?4.?Type 1 diabetes mellitus with diabetic polyneuropathy - E10.42?5.?Pain in right toe(s) - M79.674?6.?Pain in left toe(s) - M79.675?7.?Tinea unguium - B35.1 (Primary)?8.?Skin disease - L98.9?9.?Other hammer toe(s) (acquired), left foot - M20.42?10.?Other hammer toe(s) (acquired), right foot - M20.41?11.?Ingrowing nail - L60.0? Plan: * Treatment: * Procedures:?Debride Nail 6-10:?Nail debridement?Nail debridement performed extensively to reduce/remove overall nail length and girth, subungual debris, and necrotic tissue, by manual and electrical means with use of a nail nipper and/or dremel, to more viable healthy nail plate or bed tissue 6-10. Silver nitrate used for any petechial bleeding as necessary. Patient chooses, no pharmaceutical tx (75025).?Keratoma Treatment:?Parring or Cutting of Benign Hyperkeratotic Lesion(s)?(-56) 2-4 Lesions - The Benign hyperkeratotic lesions, as described above were pared, and/or cut utilizing a sterile 15 blade, tissue nippers, and/or dremel - 70817.? * Procedure Codes:?62361 DEBRI DE NAIL, 6 OR MORE, Modifiers: XS 85767 TRIM SKIN LESIONS, 2 TO 4, Modifiers: XS * Follow Up:?3 Months * Images: * Sign off status: Completed true * Provider:?David Ndiaye DPM Date:? 024 Generated for Cassandra alexis/Norma/Saud on:?08/16/2024 01:40 PM EST History and Physical Notes * HPI (History of Present Illness) Category Sub-Category Detail Notes Category Not es Ingrown toenail Duration: a week Nature: tenderness Location: Great toe, Right orville t Treatments: previous sx age 9 w ith ped Aggravated by: any pressure, shoes Course: worse Wart Pt States Last PCP Visit: Date:: 03/03/2024 Skin problems Nature: tender , tender Location: Bottom, Forefoot, B/ L , Bottom, Forefoot, B/L Duration: several years , wilian ral years Treatments: dm shoes and inserts have helped , dm shoes and inserts have helped At Risk footcare Pt States Last PCP Visit: Date: Examination Category Sub-Category Detail Notes Category Not es Ingrown Nail INSPECTION: Reveals nail inc urvation, dull pain on palpation due to neuropathy, groove hypertrophy, Lateral nail border, T5 Neurological SENSORY: Neurological exa m demonstrates, reduced vibration sensation, 5.07 monofilament test performed at plantar aspects of 5 varied sites per foot shows sensation, reduced , B/L Dermatologic SKIN FINDINGS: Skin exam reveal s Keratotic lesion(s) located at, Plantar, T1, SUB MTH (s), 1, 2, Heel(s), B/L VERRUCA: Orthopedic FOOT MORPHOLOGY: Pes Cavus structure, B/L DIGITAL DEFORMITIES: Digital contracture , PIPJ, 2-5 B/L, incompl-reducable with WB, or to push-up test, no over, nor underlapping MUSCLE STRENGTH: 5/5 all groups in a symmetrical fashion , B/L General Examination GENERAL APPEARANCE: pleasant , alert, well nourished, well developed, well hydrated, with good attention to hygene/body habitus, and in no acute distress FOOT EXAM: Lower Extremity Neurological Exa m performed:: Yes Visual exam of foot performed:: Yes Date: 06/02/2024 Sensory testing performed:: sensations d iminished Pedal pulse taking performed:: 1+ ORIENTED: person,place, and ti me Ophthalmology Referral DIABETES EYE EXAM Diabeti c Retinopathy Screening:: Yes 07/2023 Findings of Diabetic Eye Exam:: retinopa thy both Vascular DP PULSES(B): 0/4, B/L PT PULSES(B): 1/4, B/L CAPILLARY FILL TIME: 3 secs. per digit. B/L TEMPERTURE GRADIENT(C): normal, B/L TROPHIC CONDITION-TEXTURE/ELASTICITY/TUR GOR/HAIR GROWTH(B): normal, B/L EDEMA(C): absent, B/L TELANGECTASIA: absent, B/L PIGMENTATION: normal, B/L Nails NAILS are: Elongated, overg rown, dystrophic, lytic, greater than 3mm thick, discolored and friable with crumbly malodorous subungual debris, with dull to no pain on palpation due to neuropathy, 1-5 B/L
--- OUTSIDE RECORDS SUMMARY | 2024-08-16 13:40 | XMS_ITS ---
Author [facility] [place] Address [address] [place] [address] Care Team Providers Care Lamp Wirer Name Role Phone Rhea Martinez Primary Care Provider David Vazquez Unavailable [phone] Allergies Allergen (clinical drug ingredient) Drug/Non Drug Allergy documented on EMR Reaction Allergy Type Onset Date Status acetaminophen Tylenol Unknown Drug Allergy Act john Cortisone raises BP Drug Allergy Active REASON FOR VISIT Wart(s), Painful nail(s) aggrevated by shoes and causing difficulty standing/walking. Medications Medication SIG (Take, Route, Frequency, Duration) Notes Start Date End Date Status Gabapentin Active carBAMazepine Active Insulin Active Breo Ellipta Active Bethanechol Chloride Active Potassium Active Extra Depth Diabetic Shoes with 3 Pair Custom heat-molded multi-density innersoles for 1 year Dx: Active Extra Depth Diabetic Shoes with 3 Pair Custom heat-molded multi-density innersoles for 1 year Dx: 09/20/2022 Active albuterol Active Carvedilol 12.5 MG Oral for 30 Days Active Lisinopril Active Rosuvastatin Calcium Active Spiriva HandiHaler A ctive Social History Tobacco Use: Social History Observation Description Date Details (start date - stop date) Former Smoker NA - NA Tobacco Use/Smoking Question Answer Notes Are you a: former smoker Additional Findings: Tobacco Non-User Current no n-smoker Tobacco use other than smoking: Question Answer Notes Are you an other tobacco user? No Vital Signs Height 5ft3in in 03/10/2024 Weight 125 lbs 03/10/2024 BMI 22.14 kg/m2 03/10/2024 Blood pressure systolic 127 mm Hg 03/10/20 24 Blood pressure diastolic 80 mm Hg 024 Encounters Encounter Location Date Provider Diagnosis [facility] [place] [address] [place] [address] 03/10/2024 David Ndiaye Other viral warts B0 7.8 [...] Treatment Notes Treatment Clinical Notes Section Notes 03/10/2024 Other viral warts (ICD-10 - B07.8) 03/10/2024 Pain in left foot (ICD-10 - M79.672) 03/10/2024 Pain in right foot (ICD-10 - M79.671) 03/10/2024 Type 1 diabetes mellitus with diabetic polyneuropathy (ICD-10 - E10.42) 03/10/2024 Pain in right toe(s) (ICD-10 - M79.674) 03/10/2024 Tinea unguium (ICD-10 - B35.1) 03/10/2024 Pain in left toe(s) (ICD-10 - M79.675) 03/10/2024 Skin disease (ICD-10 - L98.9) 03/10/2024 Other hammer toe(s) (acquired), left foot (ICD-10 - M20.42) 03/10/2024 Other hammer toe(s) (acquired), right foot (ICD-10 - M20.41) 03/10/2024 Ingrowing nail (ICD-10 - L60.0) Plan Of Treatment Medication Medication Name Sig Start Date Stop Date Notes Extra Depth Diabetic Shoes w ith 3 Pair Custom heat-molded multi-density innersoles for 1 year Dx: Next Appt Details Follow Up: 2 Months,3 Months , Reason: Provider Name:Vivienne trotter, 08/25/2024 02:15:00 PM, [address] [facility], [place], [address], Procedure Notes * Category Sub-Category Detail Notes [...] as necessary. Patient chooses, no pharmaceutical tx (07527) Keratoma Treatment Parring or Cutting o f Benign Hyperkeratotic Lesion(s) 12773 ( >4 Lesions) - The Benign hyperkeratotic lesions, as described above were pared, and/or cut utilizing a sterile #15 blade, tissue nippers, and/or dremel Progress Notes * Arun MCKINNEYOB:1960 (63 yo M)Acc No.[id number]:03/10/2024 Progress Note Patient:?Simone Mckinney Provider:?David Ndiaye DPM :1960???Age:63 Y???Sex:Male Carrington e:03/10/2024 Address:[address] [place], [place] [id number] Pcp:Rhea Martinez Subjective: * Chief Complaints: * ???Wart(s) Painful nail(s) a ggrevated by shoes and causing difficulty standing/walking. * HPI: ???At Risk footcare:?Pt States Last PCP Visit:?Date?02/11/2024 ???Skin problems:?Nature:?tender , tender.?Location:?Bottom, Forefoot, B/L , Bottom, Forefoot, B/L .?Duration:?several years , several years.?Treatments:?dm shoes and inserts have helped , dm shoes and inserts have helped.?Wart:?Pt States Last PCP Visit:?Date:?09/05/2022 ???Ingrown toenail:?Nature:?tenderness.?Location:?Great toe, Right foot.?Duration:?a week.?Course:?worse.?Aggrevated by:?any pressure, shoes.?Treatments:?previous sx age 9 with [...] artery occlusion with cerebral infarction.?Siblings: diagnosed with Unspecified heart disease, Other malignant neoplasm of unspecified site.? * Social History:?Tobacco Use:?Tobacco Use/Smoking?Are you a:?former smoker ?Additional Findings: Tobacco Non-User?Current non-smoker ?Tobacco use other than smoking?Are you an other tobacco user??No * Medications:?TakingPotassium albuterol Bethanechol Chloride Breo Ellipta carBAMazepine Gabapentin Insulin Lisinopril Spiriva HandiHaler Rosuvastatin Calcium Extra Depth Diabetic Shoes with 3 Pair Custom heat-molded multi-density innersoles for 1 year Dx:Extra Depth Diabetic Shoes with 3 Pair Custom heat-molded multi- density innersoles for 1 year Dx:Carvedilol 12.5 MG Tablet Oral Medication List reviewed and reconciled with the patientTaking Potassium Taking albuterol Taking Bethanechol Chloride Taking Breo Ellipta Taking carBAMazepine Taking Gabapentin Taking Insulin Taking Lisinopril Taking Spiriva HandiHaler Taking Rosuvastatin Calcium Taking Extra Depth Diabetic Shoes with 3 Pair Custom heat-molded multi-density innersoles for 1 year Dx:Taking Extra Depth Diabetic Shoes with 3 Pair Custom heat-molded multi-density innersoles for 1 year Dx:Taking Carvedilol 12.5 MG Tablet Oral Medication List reviewed and reconciled with the patient * Allergies:?TylenolCortisone: raises BPyes[Allergies Verified] Objective: * Vitals:?Ht: 5ft3in, Wt:125, BMI:22.14, Shoe size: 6.5, BP:127/80 mm Hg, BS: 127, Ht-cm: 160.02 cm, Wt-k.7 kg. * ???Past Orders: ???Lab:HEMOGLOBIN A1C (GLYCO HEMOGLOBIN) (Order Date - 01/02/2024) (Collection Date - 01/02/2024) ? Value Reference Range ?HEMOGLOBIN A1C (HH) 7.9 * Examination: ???Ophthalmology Referral: ?DIABETES EYE EXAM?Neurological: ?SENSORY:? Neurological exam demonstrates, reduced vibration sensation, 5.07 monofilament test performed at plantar aspects of 5 varied sites per foot shows sensation, reduced , B/L.?Vascular: ?DP PULSES:? 0/4, B/L.?PT PULSES:? 1/4, B/L.?CAPILLARY FILL TIME:?3 secs. per digit. B/L.?SKIN TEMPERTURE GRADIENT OF THE LOWER EXTERMITIES:?normal, B/L.?HAIR GROWTH/TEXTURE/ELASTICITY/TURGOR:?normal, B/L.?PIGMENTATION:?normal, B/L.?EDEMA:?absent, B/L.?TELANGECTASIA:?absent, B/L.?Nails: ?NAILS are:? Elongated, overgrown, dystrophic, [...] as necessary. Patient chooses, no pharmaceutical tx (84892).?Keratoma Treatment:?Parring or Cutting of Benign Hyperkeratotic Lesion(s)?11515 ( >4 Lesions) - The Benign hyperkeratotic lesions, as described above were pared, and/or cut utilizing a sterile #15 blade, tissue nippers, and/or dremel.? * Procedure Codes:?63877 DEBRI DE NAIL, 6 OR MORE, Modifiers: XS 69017 TRIM SKIN LESIONS, 2 TO 4, Modifiers: XS * Follow Up:?2 Months,3 Months * Images: * Sign off status: Completed true * Provider:?David Ndiaye DPM Date:? 024 Generated for Cassandra alexis/Norma/eTransmitting on:?08/16/2024 01:40 PM EST History and Physical Notes * HPI (History of Present Illness) Category Sub-Category Detail Notes Category Not es Ingrown toenail Duration: a week Nature: tenderness Location: Great toe, Right orville t Treatments: previous sx age 9 w ith ped Aggravated by: any pressure, shoes Course: worse Wart Pt States Last PCP Visit: Date:: 09/05/2022 Skin problems Nature: tender , tender Location: Bottom, Forefoot, B/ L , Bottom, Forefoot, B/L Duration: several years , wilian ral years Treatments: dm shoes and inserts have helped , dm shoes and inserts have helped At Risk footcare Pt States Last PCP Visit: Date: 4 Examination Category Sub-Category Detail Notes Category Not [...] Visual exam of foot performed:: Yes Date: 12/17/2023 Sensory testing performed:: sensations d iminished Pedal pulse taking performed:: 1+ ORIENTED: person,place, and ti fl Ophthalmology Referral DIABETES EYE EXAM Diabetic Retinopa thy Screening:: Yes Findings of Diabetic Eye Exam:: retinopa thy Vascular DP PULSES(B): 0/4, B/L PT PULSES(B): [...]
--- OUTSIDE RECORDS SUMMARY | 2024-08-16 13:40 | XMS_ITS ---
Author Organization [facility] Address [address] [place] [address] Care Team Providers Care Cook Candy Name Role Phone Rhea Martinez Primary Care Provider David Vazquez [phone] REASON FOR VISIT rx diab shoe Medications Medication SIG (Take, Route, Frequency, Duration) Notes Start Date End Date Status Extra Depth Diabetic Shoes with 3 Pair Custom heat-molded multi-density innersoles for 1 year Dx: Active Encounters Encounter Location Date Provider Diagnosis [address] [address] 07/03/2024 David Ndiaye Type 1 diabetes mellitus with diabetic polyneuropathy E10.42 Assessments Encounter Date Diagnosis (ICD Code) Assessment Notes Treatment Notes Treatment Clinical Notes Section Notes 07/03/2024 Type 1 diabetes mellitus with diabetic polyneuropathy (ICD-10 - E10.42) Plan Of Treatment Medication Medication Name Sig Start Date Stop Date Notes Extra Depth Diabetic Shoes w ith 3 Pair Custom heat-molded multi-density innersoles for 1 year Dx: Next Appt Details Provider Name:Vivienne trotter, 08/25/2024 02:15:00 PM, [address] [place] [address], [phone], Progress Notes * Arun MCKINNEYOB:1960 (63 yo M)Acc No.[id number]:07/03/2024 Patient:?Simone Mckinney :1960???Age:63 Y???Sex:Male Address:[address] [place] [address], [facility] [place], [address] * Refills? Refill Extra Depth Diabetic Shoes with 3 Pair Custom heat-molded multi-density innersoles, 1 pair shoes/3 sets inserts, for 1 year, Dx:, Refills=0 * true * Date:? Generated for Cassandra alexis/Norma/eTransmitting on:?08/16/2024 01:40 PM EST
--- OUTSIDE RECORDS SUMMARY | 2024-08-16 13:41 | XMS_ITS | Patient Health Record ---
[facility] Address [address] [place] [address] Care Team Providers Care Corrugator Helper Name Role Phone Rhea Martinez Primary Care Provider David Vazquez Unavailable [phone] Allergies Allergen (clinical drug ingredient) Drug/Non Drug Allergy documented on EMR Reaction Allergy Type Onset Date Status acetaminophen Tylenol Unknown Drug Allergy Act john Cortisone raises BP Drug Allergy Active Results Component Value Reference Range Notes HEMOGLOBIN A1C (GLYCOHEMOGLO BIN) Reviewed date:03/10/2024 01:50:46 PM Interpretation: Performing Lab: Notes/Report: HEMOGLOBIN A1C (HH) 7.9 HEMOGLOBIN A1C (GLYCOHEMOGLO BIN) Reviewed date:06/02/2024 01:34:07 PM Interpretation: Performing Lab: Notes/Report: TOTAL HEMOGLOBIN (HGBA1C) 7.4 Reason For Referral No Information Medications Medication SIG (Take, Route, Frequency, Duration) Notes Start Date End Date Status Potassium Active Carvedilol 25 MG 1 tablet with food O ral Twice a day for 30 days Active Extra Depth Diabetic Shoes with 3 Pair Custom heat-molded multi-density innersoles for 1 year Dx: 09/20/2022 Active Bethanechol Chloride Active albuterol Active Breo Ellipta Active Gabapentin Active carBAMazepine Active Lisinopril Active Insulin Active Rosuvastatin Calcium Active Spiriva HandiHaler A ctive Extra Depth Diabetic Shoes with 3 Pair Custom heat-molded multi-density innersoles for 1 year Dx: Active Immunizations Vaccine Route Administration Date Status Comme nts COVID-19 Pfizer BioNTech Vaccine Unknown 07/11/2022 Administered 2020,2020 2020 unsure dates Influenza Unknown 06/30/2022 Administered Influenza Unknown 06/03/2023 Administered Social History Tobacco Use: Social History Observation [...] Are you an other tobacco user? No Problems Problem Type SNOMED Code ICD Code Onset Dates Problem Status W/U Status Risk Notes Problem Acquired hammer toe of right foot (9196171229087938 ) Other hammer toe(s) (acquired), right foot (M20.41) Active confirmed Problem Acquired hammer toe of left foot (9262305116731677 ) Other hammer toe(s) (acquired), left foot (M20.42) Active confirmed Problem Polyneuropathy due to diabetes mellitus type I (855344450) Type 1 diabetes mellitus with diabetic polyneuropathy (E10.42) Active confirmed Vital Signs Blood pressure diastolic 80 mm Hg 06/02/2024 Height 5ft 3in in 06/02/2024 Blood pressure systolic 129 mm Hg 06/02/2024 Weight 125 lbs 06/02/2024 BMI 22.14 kg/m2 06/02/2024 Encounters Encounter Location Date Provider Diagnosis [address] [address] 09/20/2023 David Ndiaye Other viral warts B0 7.8 [...] right foot M20.41 and Ingrowing nail L60.[facility] [address] 12/17/2023 David Ndiaye Other viral warts B0 7.8 [...] right foot M20.41 and Ingrowing nail L60.[address] [address] 03/10/2024 David Ndiaye Other viral warts B0 [...] right foot M20.41 and Ingrowing nail L60.[address] [address] 06/02/2024 David Ndiaye Other viral warts B0 [...] right foot M20.41 and Ingrowing nail L60.[address] [address] 07/03/2024 David Ndiaye Type 1 diabetes mellitus with diabetic polyneuropathy E10.42 Assessments Encounter Date Diagnosis (ICD Code) Assessment Notes Treatment Notes Treatment Clinical Notes Section Notes 09/20/2023 Other viral warts (ICD-10 - B07.8) 12/17/2023 Other viral warts (ICD-10 - B07.8) 03/10/2024 Other viral warts (ICD-10 - B07.8) 06/02/2024 Other viral warts (ICD-10 - B07.8) 07/03/2024 Type 1 diabetes mellitus with diabetic polyneuropathy (ICD-10 - E10.42) 06/02/2024 Pain in left foot (ICD-10 - M79.672) 03/10/2024 Pain in left foot (ICD-10 - M79.672) 12/17/2023 Pain in left foot (ICD-10 - M79.672) 09/20/2023 Pain in left foot (ICD-10 - M79.672) 12/17/2023 Pain in right foot (ICD-10 - M79.671) 09/20/2023 Pain in right foot (ICD-10 - M79.671) 03/10/2024 Pain in right foot (ICD-10 - M79.671) 06/02/2024 Pain in right foot (ICD-10 - M79.671) 03/10/2024 Type 1 diabetes mellitus with diabetic polyneuropathy (ICD-10 - E10.42) 06/02/2024 Type 1 diabetes mellitus with diabetic polyneuropathy (ICD-10 - E10.42) 09/20/2023 Type 1 diabetes mellitus with diabetic polyneuropathy (ICD-10 - E10.42) 12/17/2023 Type 1 diabetes mellitus with diabetic polyneuropathy (ICD-10 - E10.42) 09/20/2023 Pain in right toe(s) (ICD-10 - M79.674) 12/17/2023 Pain in right toe(s) (ICD-10 - M79.674) 03/10/2024 Pain in right toe(s) (ICD-10 - M79.674) 06/02/2024 Pain in right toe(s) (ICD-10 - M79.674) 06/02/2024 Pain in left toe(s) (ICD-10 - M79.675) 06/02/2024 Tinea unguium (ICD-10 - B35.1) 03/10/2024 Pain in left toe(s) (ICD-10 - M79.675) 12/17/2023 Pain in left toe(s) (ICD-10 - M79.675) 12/17/2023 Tinea unguium (ICD-10 - B35.1) 03/10/2024 Tinea unguium (ICD-10 - B35.1) 09/20/2023 Tinea unguium (ICD-10 - B35.1) 09/20/2023 Pain in left toe(s) (ICD-10 - M79.675) 12/17/2023 Skin disease (ICD-10 - L98.9) 03/10/2024 Skin disease (ICD-10 - L98.9) 06/02/2024 Skin disease (ICD-10 - L98.9) 03/10/2024 Other hammer toe(s) (acquired), left foot (ICD-10 - M20.42) 06/02/2024 Other hammer toe(s) (acquired), left foot (ICD-10 - M20.42) 12/17/2023 Other hammer toe(s) (acquired), left foot (ICD-10 - M20.42) 09/20/2023 Skin disease (ICD-10 - L98.9) 09/20/2023 Other hammer toe(s) (acquired), left foot (ICD-10 - M20.42) 12/17/2023 Other hammer toe(s) (acquired), right foot (ICD-10 - M20.41) 06/02/2024 Other hammer toe(s) (acquired), right foot (ICD-10 - M20.41) 03/10/2024 Other hammer toe(s) (acquired), right foot (ICD-10 - M20.41) 06/02/2024 Ingrowing nail (ICD-10 - L60.0) 03/10/2024 Ingrowing nail (ICD-10 - L60.0) 12/17/2023 Ingrowing nail (ICD-10 - L60.0) 09/20/2023 Other hammer toe(s) (acquired), right foot (ICD-10 - M20.41) 09/20/2023 Ingrowing nail (ICD-10 - L60.0) Plan Of Treatment Pending Test Test Name Order Date 79556-HISR SKIN LESIONS, OVER 4 09/20/19 [id number] SKIN LESIONS, OVER 4 11/24/19 [id number]-BTHG SKIN LESIONS, 2 TO 4 02/02/20 Next Appt Details Provider Name:Vivienne Oden rose marie, 08/25/2024 02:15:00 PM, [address] [place] [address], [phone], Insurance Providers Payer Name Payer Address Payer Phone Subscriber Number Group Number Insured Name Patient Relationship to Insured Coverage Start Date Coverage End Date Medicare [employer] [address] [place] [address] [id number] Smione Mir Self - patient is the insured Medical (General) History Medical History History ICD Code Arthritis Back,Hip,and Knee pain Broken bones CAD (Cholesterol) type I diabetes Gall bladder problems Heart disease High blood pressure Kidney disease Lung disease COPD Surgical History Surgery Date(Month/Year)
[2024-08-16 13:43] LABS: Prothrombin Time 11.1 SEC (10.9-12.4)
[2024-08-16 14:05] LABS: Alanine Aminotransferase 16 U/L (0-40); Albumin Level 3.7 g/dL (3.5-5.0); Alkaline Phosphatase 92 U/L (39-117); Anion Gap 14 (12-20); Aspartate Amino Transferase 22 U/L (5-37); Bilirubin Direct 0.1 mg/dL (0.0-0.5); Bilirubin Total 0.3 mg/dL (0.0-1.0); Blood Urea Nitrogen 22 mg/dL (9-16); Calcium 8.7 mg/dL (8.4-10.2); Carbon Dioxide 25 mmol/L (22-29); Chloride 104 mmol/L (96-108); Creatinine Clr Calc Pharmacy 39.3; Estimated Glomerular Filt Rate 51; Glucose Random 157 mg/dL (60-115); Potassium 4.3 mmol/L (3.3-5.1); Sodium 139 mmol/L (135-145); Total Protein 6.7 g/dL (6.5-8.0)
[2024-08-16 14:12] LABS: Troponin-I High Sensitivity 14.6 ng/L (<3.5-35.0)
[2024-08-16 14:17] LABS: B Type Natriuretic Peptide 21 pg/mL (<100)
[2024-08-16 14:29] LABS: Influenza A PCR NEGATIVE (Negative); Influenza B PCR NEGATIVE (Negative); Resp Syncy Virus RNA Qual PCR NEGATIVE (Negative); SARS COV2 PCR INHOUSE NEGATIVE (Negative)
--- NOTE | 2024-08-16 15:02 | PC.NURSE ---
Patient arrived via EMS from home for SOB that became worse this morning. Patient alert and oriented, admitted on 2L NC, weaned to RA, O2 sats remain 94-95%. Received solu-medrol as ordered and RT was in to assess patient and administered updraft treatment with good effect. Repeat Troponin to be drawn at 1630. Patient currently resting comfortably.
[2024-08-16] MEDS: Albuterol/Iprat 2.5/0.5MG 3 ML AMPUL.NEB INHALE (16:11)
--- NOTE | 2024-08-16 16:32 | PC.NURSE ---
Patient OOB ambulating aranda with O2 sat in place, patient able to maintain O2 between 93-94%.
== END 2024-08-16 17:17 | disposition home or self-care (01) ==
PROVIDERS: Physician Assistant; Emergency Provider Emergency Medicine; PCP Internal Medicine
DX: J44.1 Chronic obstructive pulmonary disease with (acute) exacerbation (principal); Z03.818 Encounter for observation for suspected exposure to other biological agents ruled out; R05.9 Cough, unspecified; R06.02 Shortness of breath; E10.9 Type 1 diabetes mellitus without complications; I10 Essential (primary) hypertension; E78.00 Pure hypercholesterolemia, unspecified; Z87.891 Personal history of nicotine dependence; Z79.4 Long term (current) use of insulin; Z79.82 Long term (current) use of aspirin; Z79.899 Other long term (current) drug therapy; Z79.02 Long term (current) use of antithrombotics/antiplatelets
CPT/HCPCS: 0241U; 36415; 71046; 80048; 80076; 83735; 83880; 84484; 85025; 85610; 93005; 94640; 96374; 96375; 99284; 99285; J2919

== ENCOUNTER → 2024-08-16 12:55 | Outpatient (BNV) | payer MEDICARE, SELFPAY | PROVIDERS: Emergency Provider Emergency Medicine; PCP Internal Medicine; Visit Provider Internal Medicine Cardiovascular Disease | DX: I44.5 Left posterior fascicular block (principal); R94.31 Abnormal electrocardiogram [ECG] [EKG] | CPT/HCPCS: 93010 ==

== ENCOUNTER 2024-09-04 13:08 | Outpatient (AMB) | payer MEDICARE, SELFPAY ==
[2024-09-04 13:15] VITALS: BP 102/60; PULSE 67; O2SAT 96; BMI 21.6
--- NOTE | 2024-09-04 13:15 | MHC.OFFVIS ---
Vital Signs 09/04/24 13:15 Height 5 ft 2 in Weight 117 lb 15.157 oz BMI 21.6 BP 102/60 Blood Pressure Location Lt brachial Position Sitting Pulse 67 Pulse Source Pulse Oximeter Pulse Oximetry (%) 96 Oxygen Delivery Method Room Air Intake Visit Reasons: pleural effusion Intake Note: pt is here for follow up from er for fluid seen on chest x-ray, he is short of breath and coughing Coremaker Helper Required: No Allergies adalimumab [From Humira] Adverse Reaction (Verified 09/04/24 13:41) sleepy pregabalin [From Lyrica] Adverse Reaction (Verified 09/04/24 13:41) Dizzyness Medication List - Last Reconciled 09/04/24 by Mele Emerson MD albuterol sulfate 90 mcg/actuation (Ventolin HFA) 2 puffs PO Q4-6H PRN aspirin (Adult Aspirin Regimen) 81 mg PO DAILY PRN bethanechol chloride 50 mg PO BID 90 days Breo Ellipta 100-25 mcg/dose (fluticasone furoate-vilanterol) 1 ea PO DAILY NS carbamazepine ER 200 mg PO BEDTIME carvedilol 25 mg PO BID finasteride 5 mg PO DAILY 90 days gabapentin 100 mg PO DAILY glucagon 3 mg/actuation (Baqsimi) mg intranasal hydrocodone-acetaminophen 5-325 mg 1 tab PO DAILY PRN 30 days hydrocodone-acetaminophen 5-325 mg 1 tab PO DAILY PRN 30 days insulin aspart U-100 70 units subcut DAILY insulin lispro (Humalog U-100 Insulin) 1 sliding scale dose subcut USEASDIRECTD ipratropium-albuterol 0.5 mg-3 mg(2.5 mg base)/3 mL 3 mL inhalation Q4H PRN 30 days lactulose 20 grams (30 mL) PO DAILY PRN lisinopril 40 mg PO DAILY metoclopramide HCl (Reglan) 10 mg PO Q6H PRN mirabegron ER (Myrbetriq) 25 mg PO DAILY 90 days potassium citrate ER 10 mEq PO TID rosuvastatin 40 mg PO DAILY sennosides-docusate sodium 8.6-50 mg (Senna Plus) 2 tab-caps (2 x 8.6-50 mg) PO BEDTIME sildenafil (Viagra) 100 mg PO DAILY PRN simethicone (Gas Relief (simethicone)) 125 mg PO BEDTIME Spiriva with HandiHaler (tiotropium bromide) 1 cap inhalation DAILY NS tamsulosin 0.4 mg PO DAILY 90 days Do you need a note to return to daycare/school/sports/work: No HPI HPI pleural effusion: Details: Simone is 64 years old very pleasant gentleman with history of smoking in the past and has advanced chronic obstructive pulmonary disease. On 08/16/24 he was seen in the emergency room with an acute exacerbation of COPD, and treated with a short course of prednisone in addition to his regular meds. Chest x-ray had shown a chronic looking pleural effusion in the right base. He denies having any fever chills or chest pain. He also denies having any recent injuries to the chest. Even though he gets short of breath on minimal exertion his breathing status is fairly stable at this time. [facility] Medical History Urinary frequency COPD exacerbation Bloating Hypoglycemia Chronic constipation Tinea pedis, left Hx of fracture of femur Eczema Cholelithiasis Carpal tunnel syndrome Ankle fracture Diabetes mellitus type 1 Chronic kidney disease (CKD) stage G2/A3, mildly decreased glomerular filtration rate (GFR) between 60-89 mL/min/1.73 square meter and albuminuria creatinine ratio greater than 300 mg/g Hypercholesterolemia Diabetic neuropathy COPD (chronic obstructive pulmonary disease) Coronary artery disease Hypertension Surgical History Hx of colonoscopy Hx of eye surgery Hx of appendectomy H/O umbilical hernia repair History of cholecystectomy History of elbow surgery History of carpal tunnel release Family History Father Hypertension Stroke CVD (cerebrovascular disease) Mother Hypertension CVD (cerebrovascular disease) Diabetes Sister HX: breast cancer Paternal Grandfather Colon cancer Social History Housing: House Alcohol intake: former Patient Tobacco Use Status: Former Tobacco user Tobacco use type: Cigarette Years Smoked: 2002 quit 08/12 e-Cigarette/Vaping Use: Never Used Second Hand Smoke Exposure: No Substance Use Type: Marijuana service: No Current occupational status: disabled Cognitive needs: No Hearing needs: No Vision needs: Yes Review of Systems Const All systems reviewed & are unremarkable except as noted in HPI and below Eyes Reports no additional complaints ENT Reports nasal congestion (Only mild, off and on) Card Denies irregular heart rhythm and Denies leg edema Resp Reports as per HPI GI Reports dyspepsia (Mild) Reports erectile dysfunction and Reports urinary hesitancy Musc Reports back pain (Mild) Skin/Breast Reports system reviewed and no additional complaints, except as documented Neuro Reports no additional complaints Psych Reports no additional complaints Physical Exam Vital Signs: Last Vital Signs Pulse 67 09/04/24 13:15 BP 102/60 09/04/24 13:15 Pulse Ox 96 09/04/24 13:15 Oxygen Delivery Method Room Air 09/04/24 13:15 BMI result Body Mass Index 21.6 Const General: comfortable (BUT HAS FREQUENT COUGH), no acute distress, alert and awake Orientation/consciousness: patient oriented x3 HEENT Head: Yes normal to inspection General nose exam: No nasal polyps present and No nasal discharge present Face and sinus: Yes sinuses nontender Mouth: oropharynx normal Throat: Yes posterior oropharynx normal Eyes General: appearance normal, both eyes and all related structures Neck Neck: Yes normal visual inspection, Yes no lymphadenopathy, Yes trachea midline and Yes no JVD Thyroid: Thyroid normal Chest Chest palpation & inspection: normal inspection of the chest, normal palpation of entire chest wall and no tenderness Resp Other: Percussion note hyper-resonant, Breath sounds are distant with prolonged expiratory phase. No wheezes or rhonchi are heard. Cardio Palpation: normal PMI Rate: regular rate Rhythm: regular rhythm Heart sounds: no gallops and no murmurs GI Palpation (GI): Soft to palpation, nontender, No hepatosplenomegaly present and no masses Auscultation: normal bowel sounds Back/Spine/Pelvis Thoracic/Lumbar Spine: thoracic and lumbar spine normal to inspection Skin General skin exam: no rashes or lesions noted Neuro General: patient oriented x3 and no focal motor deficits Cranial nerves: Yes CN's II-XII intact bilaterally Extrem General: Yes normal to inspection, Yes no clubbing, cyanosis or edema and Yes no calf tenderness Psych Appearance: grossly normal and well kempt Speech and movement: Normal speech and movement present Results Reviewed Results Reviewed: Chest x-ray of .reviewed In addition to findings of COPD, He does have a significant blunting of the right costophrenic angle and layering up some fluid. This is somewhat more prominent than what was seen in 202, and it seems to be chronic. Assessment & Plan Assessment & Plan (1) COPD (chronic obstructive pulmonary disease): Comment: HE IS A KNOWN CASE OF SEVERE COPD, REMAINS STABLE, BUT DOES COMPLAIN OF ONGOING COUGH. Code(s): J44.9 - Chronic obstructive pulmonary disease, unspecified Category: Medical Qualifiers: COPD type: emphysema Emphysema type: unspecified Qualified Code(s): J43.9 - Emphysema, unspecified Plan: CONTINUE BREO 100-251 INHALATION DAILY. SPIRIVA HANDIHALER 1 INHALATION DAILY VENTOLIN HFA 2 PUFFS Q 6 HOURS P.R.N./WHEN OUTDOORS IPRATROPIUM-ALBUTEROL SOLUTION IN THE NEBULIZER. Q 6 HOURS P.R.N. WHEN AT HOME THERE IS NO NEED OF ANY PREDNISONE AT THIS TIME. (2) Pleural effusion: Comment: HE HAS SMALL PLEURAL EFFUSION IN THE RIGHT PLEURAL CAVITY. I CAN SEE SIMILAR FINDING IN A CHEST X-RAY PERFORMED IN 2022, THOUGH THE CURRENT FINDING IS SOMEWHAT MORE PROMINENT. I THINK THIS PLEURAL EFFUSION OR PLEURAL SCARRING IS FROM AN OLD INFECTION OR INJURY. Code(s): J90 - Pleural effusion, not elsewhere classified Category: Medical Plan: WILL REPEAT CHEST X-RAY IN A FEW WEEKS, BEFORE HIS NEXT VISIT. EXPLAINED TO HIM ABOUT THE NATURE OF THIS FINDING AND HE UNDERSTANDS WELL. Orders: Orders XR chest 2V 4 Weeks Mele Emerson MD J43.9 - Emphysema, unspecified, J90 - Pleural effusion, not elsewhere classified Medications: Changed From gabapentin 100 mg PO DAILY 90 days PRN 180 caps 2RF pain To gabapentin 100 mg PO DAILY pain Rhea Martinez MD Coding Level of Care Code Est Pt Level 3 (34524) Diagnoses Pulmonary emphysema, unspecified emphysema type J43.9 COPD type: emphysema Emphysema type: unspecified Pleural effusion J90
--- OUTSIDE RECORDS SUMMARY | 2024-09-04 14:15 | XMS_ITS ---
[facility] [place] Address [address] [place] [address] Care Team Providers Care Bridge Welder Name Role Phone Rhea Martinez Primary Care Provider David Vazquez Unavailable [phone] Allergies Allergen (clinical drug ingredient) Drug/Non Drug [...] 024 Encounters Encounter Location Date Provider Diagnosis [facility] [address] [place] [address] 06/02/2024 David Ndiaye Other viral warts B0 [...] Details Follow Up: 3 Months, Reason: Provider Name:Rachele cannon, 11/14/2024 01:30:00 PM, [address] [facility], [place], [address], Procedure Notes * Category Sub-Category Detail Notes [...] as necessary. Patient chooses, no pharmaceutical tx (28348) Keratoma Treatment Parring or Cutting o f Benign Hyperkeratotic Lesion(s) (-56) 2-4 Lesions - The Benign hyperkeratotic lesions, as described above were pared, and/or cut utilizing a sterile 15 blade, tissue nippers, and/or dremel - 60501 Progress Notes * Arun MCKINNEYOB:1960 (63 yo M)Acc No.[id number]:06/02/2024 Progress Note Patient:?Mckinney, Simone Provider:?David Ndiaye DPM :1960???Age:63 Y???Sex:Male Carrington e:06/02/2024 Address:[address] [place] [address] Pcp:Rhea Martinez Subjective: * Chief Complaints: * [...] as necessary. Patient chooses, no pharmaceutical tx (54788).?Keratoma Treatment:?Parring or Cutting of Benign Hyperkeratotic Lesion(s)?(-56) 2-4 Lesions - The Benign hyperkeratotic lesions, as described above were pared, and/or cut utilizing a sterile 15 blade, tissue nippers, and/or dremel - 04988.? * Procedure Codes:?40336 DEBRI DE NAIL, 6 OR MORE, Modifiers: XS 29293 TRIM SKIN LESIONS, 2 TO 4, Modifiers: XS * Follow Up:?3 Months * Images: * Sign off status: Completed true * Provider:?David Ndiaye DPM Date:? 024 Generated for Cassandra alexis/Norma/Saud on:?09/04/2024 02:15 PM EST History and Physical Notes * [...] Eye Exam:: retinopa thy both Vascular DP PULSES (B): 0/4, B/L PT PULSES (B): 1/4, B/L CAPILLARY FILL TIME: 3 secs. per digit. B/L TEMPERTURE GRADIENT (C): normal, B/L TROPHIC CONDITION-TEXTURE/ELASTICITY/TUR GOR/HAIR GROWTH (B): normal, B/L EDEMA (C): absent, B/L TELANGECTASIA: absent, B/L PIGMENTATION: normal, B/L Nails NAILS are: Elongated, overg rown, dystrophic, lytic, greater than 3mm thick, discolored and friable with crumbly malodorous subungual debris, with dull to no pain on palpation due to neuropathy, 1-5 B/L
--- OUTSIDE RECORDS SUMMARY | 2024-09-04 14:15 | XMS_ITS ---
Author Organization [facility] polina Tomball Address [address] [place] [address] Care Team Providers Care Owner Manager Name Role Phone Rhea Martinez Primary Care Provider David Vazquez Unavailable [phone] Vivienne Greene Unavailable [phone] Allergies Allergen (clinical drug ingredient) Drug/Non Drug Allergy documented on EMR Reaction Allergy Type Onset Date Status acetaminophen Tylenol Unknown Drug Allergy Act john Cortisone raises BP Drug Allergy Active REASON FOR VISIT At Risk Footcare, Toe Irritation Medications Medication SIG (Take, Route, Frequency, Duration) Notes Start Date End Date Status Extra Depth Diabetic Shoes with 3 Pair Custom heat-molded multi-density innersoles for 1 year Dx: Active Extra Depth Diabetic Shoes with 3 Pair Custom heat-molded multi-density innersoles for 1 year Dx: 09/20/2022 Active Carvedilol 25 MG 1 tablet with food O ral Twice a day for 30 days Active Rosuvastatin Calcium Active Potassium Active Spiriva HandiHaler A ctive Insulin Active Lisinopril Active carBAMazepine Active Gabapentin Active Bethanechol Chloride Active Breo Ellipta Active albuterol Active Social History Tobacco Use: [...] Problem Status W/U Status Risk Notes Problem Polyneuropathy due to type 2 diabetes mellitus (538879035) Type 2 diabetes mellitus with diabetic polyneuropathy (E11.42) Active confirmed Vital Signs Height 5ft3in in 08/25/2024 Weight 120 lbs 08/25/2024 BMI 21.25 kg/m2 08/25/2024 Blood pressure systolic 125 mm Hg 08/25/20 Blood pressure diastolic 80 mm Hg 024 Procedures Procedure Date Ordered Date Performed Result Body Sit e 49446-SLCQYYC NAIL, 6 OR MORE 08/25/2024 N/A 29361-APZK SKIN LESIONS, OVER 4 08/25/2024 N/A Encounters Encounter Location Date Provider Diagnosis [facility] [address] [place] [address] 08/25/2024 Vivienne Greene Type 2 diabetes mellitus with diabetic polyneuropathy E11.42 ; Tinea unguium B35.1 ; Other hammer toe(s) (acquired), right foot M20.41 and Other hammer toe(s) (acquired), left foot M20.42 Assessments Encounter Date Diagnosis (ICD Code) Assessment Notes Treatment Notes Treatment Clinical Notes Section Notes 08/25/2024 Type 2 diabetes mellitus with diabetic polyneuropathy (ICD-10 - E11.42) 08/25/2024 Tinea unguium (ICD-10 - B35.1) 08/25/2024 Other hammer toe(s) (acquired), right foot (ICD-10 - M20.41) Response to treatment,Impro vement 08/25/2024 Other hammer toe(s) (acquired), left foot (ICD-10 - M20.42) Response to treatment,Impro vement Plan Of Treatment Pending Test Test Name Order Date 40348-QVANPJH NAIL, 6 OR MORE 08/25/2024 80661-ACJE SKIN LESIONS, OVER 4 08/25/20 24 Next Appt Details Follow Up: 3 Months, Reason: Provider Name:Rachele cannon, 11/14/2024 01:30:00 PM, [address] [place], [address], Procedure Notes * Category Sub-Category Detail Notes Debride Nail 6-10 Nail debridement Due to the cl inical pathology outlined in the exam findings, performance of this nail treatment is medically necessary as its management by an unskilled/untrained nonprofessional would put this patients foot and overall health at risk. Therefore, debridement to affected nail(s), as described in exam ( TA, T2, T3, T4, T5, T6, T7, T8, T9, ), was performed exclusively by the physician of record to reduce/remove overall nail length, girth, thickness, subungual debris, and necrotic tissue, by manual and/or electrical means through the use of a nail nipper and/or dremel-type perlite grinder, to a more viable healthy nail plate or bed tissue 6-10 nails in total. Silver nitrate was used for any petechial bleeding as necessary. Definitive antifungal treatment options, both pharmaceutical and surgical, have been reviewed and discussed with the patient. The patient solely prefers the use of intermittent/as needed professional debridement services for their nail condition and understands the need for additional periodic treatments to maintain effectiveness in symptomatic relief - 37426 Keratoma Treatment Parring or Cutting o f Benign Hyperkeratotic Lesion(s) (-57) More than 4 Lesions - Due to the at risk nature of the patients medical condition as documented in the exam findings, performance of this keratoderma treatment is medically necessary as its management by an unskilled/untrained nonprofessional would put this patients foot and overall health at risk. Therefore, the benign hyperkeratotic lesions, ( 7 ) in total, locations as stated and described in the exam ( Plantar, T1, SUB MTH (s), 1, 2 B/L, plantar heel(s), B/L ), were pared, and/or cut utilizing a sterile 15 blade, tissue nippers, and/or power dremel instrumentation by the physician of record - 31556 Progress Notes * Arun MIROB:1960 (64 yo M)Acc No.[id number]:08/25/2024 Progress Note Patient:?Wilfred MIRn Provider:?Vivienne Greene DPM :1960???Age:64 Y???Sex:Male Carrington e:08/25/2024 Address:[address] [place] [address], [facility] Pcp:Rhea Martinez Subjective: * Chief Complaints: * ???At Risk FootcareToe Irrit ation * HPI: ???At Risk footcare:?Pt States Last PCP Visit:?Date?07/04/2024 ???Toe pain:?Treatments:?Rx shoes .? * ROS:?General/Constitutional:?Nausea?denies.?Vomiting?denies.?Hunger Thirst?denies.?Loss appetite?denies.?Chills?denies.?Fatigue?denies.?Fever?denies.?Night Sweats?denies.?Unexplained weight loss?denies.?Unexplained weight gain?denies.?HEENTM:?Dentures?denies.?Dizziness?denies.?Glasses/contacts?admits.?Retinopathy?adm its.?Blurred/double vision?denies.?TMJ?denies.?Discharge/drainage?denies.?Implants?denies.?Sore throat?denies.?Dental implants?admits.?Hard of hearing ?denies.?Difficulty chewing/swallowing/speaking?denies.?Nose bleeds?denies.?Sore mouth?denies.?Respiratory:?On O xygen?denies.?Pneumonia/pleurisy?denies.?Bronchitis?denies.?Emphysema?denies.?Co ughing?denies.?Cough blood?denies.?Shortness of breath?admits.?Wheezing?denies.?Cardiovascular:?Pacemaker?denies.?MVP?denies.?WPW?denies.?CHF?denies.?Heart attack?denies.?Septal defect?denies.?Rapid beat?denies.?Chest pain ?denies.?Atrial Fib.?denies.?Murmur/Palpitations?denies.?Gastrointestinal:?Hemorrhoids?denies.?Stomach/Abdominal pain?denies.?Dark blood stool?denies.?Irritable bowel ?denies.?Constipation?admits.?Diarrhea?denies.?Hematology:?Swelling?denies.?Clots?denies.?Varicose Veins?denies.?Bruising?denies.?Bleeding problem?denies.?Genitourinary:?Blood urine?denies.?Frequent/Painfu/urination/bladder control?admits.?Kidney stones?admits.?Infection (UTI)?denies.?Nephropathy?admits.?sex trans dis (STD)?denies.?Prostate?admits.?Musculoskeletal:?Hammertoes?denies.?Bunions?denies.?Back Pain?denies.?Muscle Cramps/ Resting?denies.?Muscle cramps / walking?admits.?Generalized aches and pains?admits.?Weakness?denies.?Integ.:?Hays?denies.?Scars?denies.?Corns/calluses?admits.?Ingrown nails?admits.?Painful nails?denies.?Open Sores?denies.?Rashes?denies.?Neurologic:?Difficulty sleeping?admits.?Brain disorder?denies.?Numbness?denies.?Balance t rouble?denies.?Confusion?denies.?Fainting/blackouts?denies.?Tingling?denies.?Alonso mors?denies.? * Medical History:? * Surgical History:?Denies Pas t Surgical History * Hospitalization/Major Diagno stic Procedure:?[facility]- breathing issues 08/16/24 * Family History:?Mother: dece ased, foot problems, diagnosed with Diabetic - NIDDM, Unspecified essential hypertension, Family history of arthritis.?Father: , diagnosed with Unspecified essential hypertension, Unspecified [...] heat-molded multi-density innersoles for 1 year Dx: Carvedilol 25 MG Tablet 1 tablet with food Oral Twice a day Extra Depth Diabetic Shoes with 3 Pair Custom heat-molded multi-density innersoles for 1 year Dx: Medication List reviewed and reconciled with the patientTaking Potassium Taking albuterol Taking Bethanechol Chloride Taking Breo Ellipta Taking carBAMazepine Taking Gabapentin Taking Insulin Taking Lisinopril Taking Spiriva HandiHaler Taking Rosuvastatin Calcium Taking Extra Depth Diabetic Shoes with 3 Pair Custom heat- molded multi-density innersoles for 1 year Dx: Taking Carvedilol 25 MG Tablet 1 tablet with food Oral Twice a day Taking Extra Depth Diabetic Shoes with 3 Pair Custom heat-molded multi-density innersoles for 1 year Dx: Medication List reviewed and reconciled with the patient * Allergies:?TylenolCortisone: raises BPyes[Allergies Verified] Objective: * Vitals:?Ht: 5ft3in, Wt:120, BMI:21.25, Shoe size: 6.5, BP:125/80mm Hg, BS: 177, Ht-cm: 160.02 cm, Wt-k.43 kg. * ???Past Orders: ???Lab:HEMOGLOBIN A1C (GLYCO HEMOGLOBIN) (Order Date - 07/04/2024) (Collection Date & Time - 07/04/2024 02:19 PM) ? Value Reference Range ?TOTAL HEMOGLOBIN (HGBA1C) 7.6 * Examination: ???Ophthalmology Referral: ?DIABETES EYE EXAM?Neurological: ?SENSORY:? Neurological exam demonstrates, reduced light touch sensation, reduced sharp/dull pin prick discrimination , B/L, 5.07 monofilament test performed at plantar aspects of 5 varied sites per foot shows sensation, reduced , B/L.?Nails: ?NAILS are:?Elongated, overgrown, dystrophic, lytic, greater than 3mm thick, discolored and friable with crumbly malodorous subungual debris, with dull to no pain on palpation due to neuropathy, TA, T2, T3, T4, T5, T6, T7, T8, T9.?Dermatologic: ?SKIN FINDINGS:?Skin exam reveals Keratotic lesion(s) located at, Plantar, T1, SUB MTH (s), 1, 2 B/L,?plantar heel(s), B/L .?Vascular: ?DP PULSES (B):?09/06, B/L.?PT PULSES (B):? 09/06, B/L.?CAPILLARY FILL TIME:?3 secs. per digit. B/L.?TROPHIC CONDITION-TEXTURE/ELASTICITY/TURGOR/HAIR GROWTH (B):?normal, B/L.?TEMPERTURE GRADIENT (C):?normal, B/L.?PIGMENTATION:?normal, B/L.?EDEMA (C):?absent, B/L.?TELANGECTASIA:?absent, B/L.?Orthopedic: ?MUSCLE STRENGTH:?5/5 all groups in a symmetrical fashion, B/L.?DIGITAL DEFORMITIES:?Digital contracture, PIPJ, 2-5 B/L, incompl-reducible with WB, or to push-up test, no over, nor underlapping, no longer?evidence of shoe producing skin irritation.?FOOTWEAR:?good condition, exhibit proper fit and accommodation for pedal deformities. OT were inspected and noted to be worn, but in good condition giving proper support at the present time.?General Examination: ?GENERAL APPEARANCE:?Reveals a pleasant, alert, well nourished, well- developed, well hydrated individual, who demonstrates proper attention to hygiene/body habitus, and is in no acute distress, Pt serves as own historian for office visit today.?ORIENTED:?person, place, and time.? Assessment: * Assessment: 1.?Type 2 diabetes mellitus with diabetic polyneuropathy - E11.42 (Primary)???2.?Tinea unguium - B35.1???3.?Other hammer toe(s) (acquired), right foot - M20.41???Specify :Chronic problem, Stable (1=3,2=4)???Notes :Response to treatment,Improvement???4.?Other hammer toe(s) (acquired), left foot - M20.42???Specify :Chronic problem, Stable (1=3,2=4)???Notes :Response to treatment,Improvement??? Plan: * Treatment: * Procedures:?Debride Nail 6-10:?Nail debridement?Due to the clinical pathology outlined in the exam findings, performance of this nail treatment is medically necessary as its management by an unskilled/untrained nonprofessional would put this patients foot and overall health at risk. Therefore, debridement to affected nail(s), as described in exam (? TA, T2, T3, T4, T5, T6, T7, T8, T9, ), was performed exclusively by the physician of record to reduce/remove overall nail length, girth, thickness, subungual debris, and necrotic tissue, by manual and/or electrical means through the use of a nail nipper and/or dremel-type perlite grinder, to a more viable healthy nail plate or bed tissue 6- 10 nails in total. Silver nitrate was used for any petechial bleeding as necessary. Definitive antifungal treatment options, both pharmaceutical and surgical, have been reviewed and discussed with the patient. The patient solely prefers the use of intermittent/as needed professional debridement services for their nail condition and understands the need for additional periodic treatments to maintain effectiveness in symptomatic relief - 87935.?Keratoma Treatment:?Parring or Cutting of Benign Hyperkeratotic Lesion(s)?(-57) More than 4 Lesions - Due to the at risk nature of the patients medical condition as documented in the exam findings, performance of this keratoderma treatment is medically necessary as its management by an unskilled/untrained nonprofessional would put this patients foot and overall health at risk. Therefore, the benign hyperkeratotic lesions, ( 7 ) in total, locations as stated and described in the exam ( Plantar, T1, SUB MTH (s), 1, 2 B/L,?plantar heel(s), B/L ), were pared, and/or cut utilizing a sterile 15 blade, tissue nippers, and/or power dremel instrumentation by the physician of record - 58457.? * Procedure Codes:?77374 DEBRI DE NAIL, 6 OR MORE, Modifiers: XS 33968 TRIM SKIN LESIONS, OVER 4, Modifiers: XS * Preventive Medicine:? ??Counseling:?Discussion:?-13: Office or other outpatient visit for the evaluation and management of an established patient, which required a medically appropriate history and/or examination and LOW level of DECISION MAKING for: 1 STABLE ACUTE UNCOMPLICATED PROBLEM, 2 OR MORE MINOR PROBLEMS, OR 1 STABLE CHRONIC PROBLEM, THAT POSE(S) A LOW RISK FOR MORBIDITY/MORTALITY. The visit on the day of the encounter encompassed interpreting the data and educating the patient as to the nature of their condition, treatment options available according to their individual PMH, meds, allergies, and overall health/living conditions, as well as any potential risks or complications that may occur from a failure to adhere to, and participate in, the recommended course of therapy. The discussion included a complete verbal, and/or written explanation of the examination results, any x-rays taken, the proposed diagnosis, and outline of the treatment plan. A schedule for future care needs was also explained. The patient verbalized an understanding of the instructions at this time and agreed to be an active participant in their treatment. If the patient should think of any questions or concerns after the visit, I have encouraged the patient to call the office.?Shoe Gear Counseling:?A thorough inspection of the patients Rxed shoegear and inserts was performed and findings communicated. We reviewed the many important medical advantages for adhering to regularly wearing these shoe and insert accomidative devices daily as well as reviewed the fact that a failure in accepting these recommedations may be deleterious, unable to prevent, and disadvantagely result in, many pedal complications such as skin irritation, skin ulceration, infection, and even loss of toe/foot/leg/or even their life. Time was also spent reviewing the proper footcare techniques including daily skin moisturization, daily foot inspection for any interruption in skin integrity, open lesions, or sign of infection such as redness/malodor/drainage/swelling as well as daily shoe inspection for the presence of internal foreign bodies and shoe as well as insert wear. Patient questions re: shoes, inserts, and self foot inspections were answered to their satisfaction as the patient verbally confirmed a full understanding of the above information.? * Follow Up:?3 Months * Images: * Sign off status: Completed true * Provider:?Vivienne Greene DPM Date:?10/26/2023 Generated for Cassandra alexis/Norma/Juan Mitting on:?09/04/2024 02:14 PM EST History and Physical Notes * HPI (History of Present Illness) Category Sub-Category Detail Notes Category Not es Toe pain Treatments: Rx shoes At Risk footcare Pt States Last PCP Visit: Date: 4 Examination Category Sub-Category Detail Notes Category Not es Neurological SENSORY: Neurological exa m demonstrates, reduced light touch sensation, reduced sharp/dull pin prick discrimination , B/L, 5.07 monofilament test performed at plantar aspects of 5 varied sites per foot shows sensation, reduced , B/L Dermatologic SKIN FINDINGS: Skin exam reveal s Keratotic lesion(s) located at, Plantar, T1, SUB MTH (s), 1, 2 B/L, plantar heel(s), B/L VERRUCA: Orthopedic FOOTWEAR: good condition, exhibit proper fit and accommodation for pedal deformities. OT were inspected and noted to be worn, but in good condition giving proper support at the present time DIGITAL DEFORMITIES: Digital contracture , PIPJ, 2-5 B/L, incompl-reducible with WB, or to push-up test, no over, nor underlapping, no longer evidence of shoe producing skin irritation MUSCLE STRENGTH: 5/5 all groups in a symmetrical fashion, B/L General Examination GENERAL APPEARANCE: Reveals a pleasant, alert, well nourished, well-developed, well hydrated individual, who demonstrates proper attention to hygiene/body habitus, and is in no acute distress, Pt serves as own historian for office visit today ORIENTED: person, place, and t andrew Ophthalmology Referral DIABETES EYE EXAM Procedure Perform ed:: Yes ?Date of Exam Performed: 07/04/2024 Findings of Diabetic Eye Exam:: retinopa thy Vascular DP PULSES (B): 1/4, B/L PT PULSES (B): 4, B/L CAPILLARY FILL TIME: 3 secs. per digit. B/L TEMPERTURE GRADIENT (C): normal, B/L TROPHIC CONDITION-TEXTURE/ELASTICITY/TUR GOR/HAIR GROWTH (B): normal, B/L EDEMA (C): absent, B/L TELANGECTASIA: absent, B/L PIGMENTATION: normal, B/L Nails NAILS are: Elongated, overg rown, dystrophic, lytic, greater than 3mm thick, discolored and friable with crumbly malodorous subungual debris, with dull to no pain on palpation due to neuropathy, TA, T2, T3, T4, T5, T6, T7, T8, T9
--- OUTSIDE RECORDS SUMMARY | 2024-09-04 14:15 | XMS_ITS | Patient Health Record ---
Author Organization [facility] Address [address] [place] [address] Care Team Providers Care Roof Service Technician Name Role Phone Rhea Martinez Primary Care Provider David Vazquez Unavailable [phone] Vivienne Greeen Unavailable [phone] Allergies Allergen (clinical drug ingredient) Drug/Non Drug [...] Performing Lab: Notes/Report: TOTAL HEMOGLOBIN (HGBA1C) 7.4 HEMOGLOBIN A1C (GLYCOHEMOGLO BIN) Reviewed date:08/25/2024 02:20:14 PM Interpretation: Performing Lab: Notes/Report: TOTAL HEMOGLOBIN (HGBA1C) 7.6 Reason For Referral No Information Medications Medication SIG (Take, Route, Frequency, Duration) Notes Start Date End Date Status Insulin Active Lisinopril Active carBAMazepine Active Gabapentin Active Bethanechol Chloride Active Breo Ellipta Active Potassium Active albuterol Active Extra Depth Diabetic Shoes with 3 Pair Custom heat-molded multi-density innersoles for 1 year Dx: Active Extra Depth Diabetic Shoes with 3 Pair Custom heat-molded multi-density innersoles for 1 year Dx: 09/20/2022 Active Carvedilol 25 MG 1 tablet with food O ral Twice a day for 30 days Active Spiriva HandiHaler A ctive Rosuvastatin Calcium Active Immunizations Vaccine Route Administration Date Status [...] Polyneuropathy due to type 2 diabetes mellitus (699083819) Type 2 diabetes mellitus with diabetic polyneuropathy (E11.42) Active confirmed Problem Acquired hammer toe of right foot (6136422426946937 ) Other hammer toe(s) (acquired), right foot (M20.41) Active confirmed Response to treatment, Improvemen t Problem Acquired hammer toe of left foot (1465672009713336 ) Other hammer toe(s) (acquired), left foot (M20.42) Active confirmed Response to treatment, Improvemen t Problem Polyneuropathy due to diabetes mellitus type I (568471739) Type 1 diabetes mellitus with diabetic polyneuropathy (E10.42) Active confirmed Vital Signs Blood pressure diastolic 80 mm Hg 08/25/2024 Height 5ft3in in 08/25/2024 Blood pressure systolic 125 mm Hg 08/25/2024 Weight 120 lbs 08/25/2024 BMI 21.25 kg/m2 08/25/2024 Procedures Procedure Date Ordered Date Performed Result Body Sit e 52914-KFDMUIC NAIL, 6 OR MORE 08/25/2024 N/A 50420-RERK SKIN LESIONS, OVER 4 08/25/2024 N/A Encounters Encounter Location Date Provider Diagnosis [facility] [address] [place] [address] 09/20/2023 David Ndiaye Other viral warts B07.8 ; Pain in left foot M79.672 ; Pain in right foot M79.671 ; Type 1 diabetes mellitus with diabetic polyneuropathy E10.42 ; Pain in right toe(s) M79.674 ; Tinea unguium B35.1 ; Pain in left toe(s) M79.675 ; Skin disease L98.9 ; Other hammer toe(s) (acquired), left foot M20.42 ; Other hammer toe(s) (acquired), right foot M20.41 and Ingrowing nail L60.[address] [address] 12/17/2023 David Ndiaye Other viral warts B07.8 ; Pain in left foot M79.672 ; Pain in right foot M79.671 ; Type 1 diabetes mellitus with diabetic polyneuropathy E10.42 ; Pain in right toe(s) M79.674 ; Tinea unguium B35.1 ; Pain in left toe(s) M79.675 ; Skin disease L98.9 ; Other hammer toe(s) (acquired), left foot M20.42 ; Other hammer toe(s) (acquired), right foot M20.41 and Ingrowing nail L60.[address] [address] 03/10/2024 David Ndiaye Other viral warts B07.8 ; Pain in left foot M79.672 ; Pain in right foot M79.671 ; Type 1 diabetes mellitus with diabetic polyneuropathy E10.42 ; Pain in right toe(s) M79.674 ; Tinea unguium B35.1 ; Pain in left toe(s) M79.675 ; Skin disease L98.9 ; Other hammer toe(s) (acquired), left foot M20.42 ; Other hammer toe(s) (acquired), right foot M20.41 and Ingrowing nail L60.[address] [address] 06/02/2024 David Ndiaye Other viral warts B07.8 ; Pain in left foot M79.672 ; Pain in right foot M79.671 ; Type 1 diabetes mellitus with diabetic polyneuropathy E10.42 ; Pain in right toe(s) M79.674 ; Tinea unguium B35.1 ; Pain in left toe(s) M79.675 ; Skin disease L98.9 ; Other hammer toe(s) (acquired), left foot M20.42 ; Other hammer toe(s) (acquired), right foot M20.41 and Ingrowing nail L60.0 [facility] [address] 08/25/2024 Vivienne Jc Type 2 diabetes mellitus with diabetic polyneuropathy E11.42 ; Tinea unguium B35.1 ; Other hammer toe(s) (acquired), right foot M20.41 and Other hammer toe(s) (acquired), left foot M20.[address] [address] 07/03/2024 David Ndiaye Type 1 diabetes mellitus [...] mellitus with diabetic polyneuropathy (ICD-10 - E10.42) 08/25/2024 Type 2 diabetes mellitus with diabetic polyneuropathy (ICD-10 - E11.42) 08/25/2024 Tinea unguium (ICD-10 - B35.1) 08/25/2024 Other hammer toe(s) (acquired), right foot (ICD-10 - M20.41) Response to treatment,Impro vement 06/02/2024 Pain in left foot (ICD-10 - [...] Pain in right foot (ICD-10 - M79.671) 08/25/2024 Other hammer toe(s) (acquired), left foot (ICD-10 - M20.42) Response to treatment,Impro vement 06/02/2024 Type 1 diabetes mellitus with diabetic polyneuropathy (ICD-10 - E10.42) 03/10/2024 Type 1 diabetes mellitus with diabetic [...] Treatment Pending Test Test Name Order Date 31830-QWRBPUL NAIL, 6 OR MORE 08/25/2024 18820-FKJJ SKIN LESIONS, OVER 4 08/25/20 24 76667-NJLJ SKIN LESIONS, OVER 4 09/20/19 25086-CGCX SKIN LESIONS, OVER 4 11/24/19 15903-YTFB SKIN LESIONS, 2 TO 4 02/02/20 Next Appt Details Provider Name:Rachele cannon, 11/14/2024 01:30:00 PM, [address] [place], [address], Insurance Providers Payer Name Payer Address Payer Phone Subscriber Number Group Number Insured Name Patient Relationship to Insured Coverage Start Date Coverage End Date [employer] [address] [place] [address] [id number] Simone Mir Self - patient is the insured Medical (General) History Medical History History ICD Code Arthritis Back,Hip,and Knee pain Broken bones CAD (Cholesterol) type I diabetes Gall bladder problems Heart disease High blood pressure Kidney disease Lung disease COPD Surgical History Surgery Date(Month/Year) Hospitalization History Reason Date(Month/Year) [facility]- breathing issues 08/16/24
--- OUTSIDE RECORDS SUMMARY | 2024-09-04 14:15 | XMS_ITS ---
Author Organization [facility] Address [address] [place] [address] Care Team Providers Care Gardening Manager Name Role Phone Rhea Martinez Primary Care Provider David Vazquez [phone] REASON FOR VISIT rx diab shoe Medications Medication SIG (Take, Route, Frequency, Duration) Notes Start Date End Date Status Extra Depth Diabetic Shoes with 3 Pair Custom heat-molded multi-density innersoles for 1 year Dx: Active Encounters Encounter Location Date Provider Diagnosis [address] [address] 07/03/2024 David Ndiaye Type 1 diabetes mellitus [...] 1 year Dx: Next Appt Details Provider Name:Rachele cannon, 11/14/2024 01:30:00 PM, [address] [place] [address], [phone], Progress Notes * Arun MCKINNEYOB:1960 (63 yo M)Acc No.[id number]:07/03/2024 Patient:?Simone Mckinney :1960???Age:63 Y???Sex:Male Address:[address] [place] [address], [facility] [place], [address] * Refills? Refill Extra Depth Diabetic Shoes with 3 Pair Custom heat-molded multi-density innersoles, 1 pair shoes/3 sets inserts, for 1 year, Dx:, Refills=0 * true * Date:? Generated for Cassandra alexis/Norma/Niyahsmcoco on:?09/04/2024 02:15 PM EST
== END 2024-09-04 13:41 | disposition home or self-care (01) ==
PROVIDERS: PCP Internal Medicine; Visit Provider Internal Medicine
DX: J43.9 Emphysema, unspecified (principal); J90 Pleural effusion, not elsewhere classified
CPT/HCPCS: 99213

== ENCOUNTER → 2024-09-04 13:08 | Outpatient (BNVA) | payer MEDICARE, SELFPAY | PROVIDERS: PCP Internal Medicine; Visit Provider Internal Medicine | DX: J43.9 Emphysema, unspecified (principal); J90 Pleural effusion, not elsewhere classified | CPT/HCPCS: 99212 ==

== ENCOUNTER 2024-09-26 08:02 | Outpatient (REF) | payer MEDICARE, SELFPAY ==
--- NOTE | ~2024-09-26 | XR_ITS ---
EXAMINATION: XR PELVIS 1-2 VIEWS HISTORY: M25.551 - Pain in right hip COMPARISON: Correlation is made with plain films of the right hip dated 06/30/2024. FINDINGS: A single AP view of the pelvis is submitted. Again seen is an old healed fracture deformity of the right proximal femoral diaphysis. There is no acute fracture or dislocation. The hip and sacroiliac joint spaces are maintained. There are vascular calcifications. XR/XR pelvis 1-2V IMPRESSION: Old healed fracture deformity of the right femoral diaphysis. Electronically signed by: Dylan Alfonso MD 09/26/2024 03:54 PM AUGUSTINE
== END 2024-09-26 08:03 | disposition home or self-care (01) ==
LOC: HO.HOSX 08:02
PROVIDERS: Visit Provider Physician Assistant
DX: M25.551 Pain in right hip (principal); M70.61 Trochanteric bursitis, right hip; Z87.81 Personal history of (healed) traumatic fracture; M16.11 Unilateral primary osteoarthritis, right hip; M54.16 Radiculopathy, lumbar region; E10.22 Type 1 diabetes mellitus with diabetic chronic kidney disease; N18.31 Chronic kidney disease, stage 3a
CPT/HCPCS: 20610; 72170; 99202; J1010; J2003

== ENCOUNTER 2024-09-26 08:25 | Outpatient (AMB) | payer MEDICARE, SELFPAY ==
--- NOTE | 2024-09-26 08:26 | A.OFFVIS_ITS ---
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 Hx of fx back in 1972. chronic kidney disease stage IIIA. Contract for Vicodin BID from PCP. No hx of previous treatment. Chronic fracture deformity of the proximal femur. Mild degenerative changes of the right hip joint. Ongoing pain since 05/2024. Patient reports his pain is on lateral aspect of the hip and the pain moves to his groin area. Patient has tried and failed hydrocodone. 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 Quintana is a 64-year-old male who Simone presents to the office today for evaluation of right hip pain. He points to the area of the greater troch bursa as well as the buttocks and the groin. Additionally, he does report intermittent pain that extends from the right buttock down the entire right lower extremity. He has a history of proximal femur fracture in 1972. He has a past medical history significant for diabetes type 1, CAD, COPD and chronic kidney disease stage IIIA. Patient currently has a pain contract for Vicodin BID from his PCP. Mild degenerative changes of the right hip joint were noted on prior x-rays. He reports ongoing pain since 05/2024. [facility] Medical History Urinary frequency COPD exacerbation Bloating Hypoglycemia Chronic constipation Tinea pedis, left Hx of fracture of femur Eczema Cholelithiasis Carpal tunnel syndrome Ankle fracture Diabetes mellitus type 1 Chronic kidney disease (CKD) stage G2/A3, mildly decreased glomerular filtration rate (GFR) between 60-89 mL/min/1.73 square meter and albuminuria creatinine ratio greater than 300 mg/g Hypercholesterolemia Diabetic neuropathy COPD (chronic obstructive pulmonary disease) Coronary artery disease Hypertension Surgical History Hx of colonoscopy Hx of eye surgery Hx of appendectomy H/O umbilical hernia repair History of cholecystectomy History of elbow surgery History of carpal tunnel release Family History Father Hypertension Stroke CVD (cerebrovascular disease) Mother Hypertension CVD (cerebrovascular disease) Diabetes Sister HX: breast cancer Paternal Grandfather Colon cancer Social History Housing: House Alcohol intake: former Patient Tobacco Use Status: Former Tobacco user Tobacco use type: Cigarette Years Smoked: 2002 quit 08/12 e-Cigarette/Vaping Use: Never Used Second Hand Smoke Exposure: No Substance Use Type: Marijuana service: No Current occupational status: disabled Cognitive needs: No Hearing needs: No Vision needs: Yes Review of Systems Const All systems reviewed & are unremarkable except as noted in HPI and below Physical Exam Vital Signs: BMI result Body Mass Index 21.4 Const General: cooperative, healthy appearing and no acute distress Resp Effort & Inspection: normal respiratory effort and able to speak in complete sentences Cardio Rate: regular rate Peripheral pulses: Peripheral pulses 2+ throughout Skin Lesions: no lesions Rashes: no rashes Extrem Other: Right hip: Normal to inspection. No ecchymosis, erythema, or edema. Full hip ROM in all planes but does report mild groin pain with range of motion testing. Tenderness to palpation over the greater trochanteric bursa. 4/5 strength with resisted hip flexion, knee extension, abduction, and abduction. Able to perform straight leg raise. NVI. Office Procedures AMB Joint Injection/Aspiration Joint Injection/Aspiration Primary Site: other (right hip greater troch bursa injection ) Prep: site was prepped using aseptic technique, ethochloride spray was applied and injection warnings given Injected: 40 mg of, DepoMedrol, with 8 mL of (2% plain lido ) and other (greater trochanteric bursa ) Approach Used: other (lateral) Procedure: The patient tolerated the procedure well, but had some pain with the injection and there was some relief with the local anesthesia Coding 88133 - Glenohumeral/Tronchanteric Bursa/Intraarticular Procedure code (CPT) selection complete Assessment & Plan Assessment & Plan (1) Greater trochanteric bursitis of right hip: Code(s): M70.61 - Trochanteric bursitis, right hip Category: Medical (2) Osteoarthritis of right hip: Code(s): M16.11 - Unilateral primary osteoarthritis, right hip Category: Medical (3) Right lumbar radiculitis: Code(s): M54.16 - Radiculopathy, lumbar region Category: Medical Plan Mr. Quintana is a 64-year-old male who Simone presents to the office today for evaluation of right hip pain. He points to the area of the greater troch bursa as well as the buttocks and the groin. Additionally, he does report intermittent pain that extends from the right buttock down the entire right lower extremity. He has a history of proximal femur fracture in 1972. He has a past medical history significant for diabetes type 1, CAD, COPD and chronic kidney disease stage IIIA. Patient currently has a pain contract for Vicodin BID from his PCP. Mild degenerative changes of the right hip joint were noted on prior x-rays. He reports ongoing pain since 05/2024. While the office today, I discussed with the patient cortisone injections in the greater troch bursa as well as the right hip joint. The patient was offered a cortisone injection in the ray to greater trochanteric bursa with 40 mg of DepoMedrol. The patient was explained the risks, benefits, and alternatives to receiving this injection. After receiving consent for the injection, the patient had the procedure done while in the office today. The patient tolerated the procedure well with no complications. Due to the patient?s history of diabetes, they were instructed to monitor his blood glucose level. The patient was informed that they could see a rise in their numbers and if the numbers became too high, they were instructed to call their PCP. The patient was also informed that they could have facial flushing as a side effect of the injection, but this will pass. If the patient continues to have persistent right groin pain we would consider doing an intra-articular joint injection. I provided the patient with my business card and should he wish to move forward with it he will contact me and we are happy to help set this up for him. Follow-up will be p.r.n., or sooner if needed X-rays of the pelvis which were obtained while in the office today and were reviewed by me, Marlena Patiño PA-C, revealed stained in the office today of the pelvis reveal mild osteoarthritis of the right hip and chronic deformity of the proximal femur from prior fracture. Orders: Orders XR pelvis 1-2V Today M25.551 - Pain in right hip Coding Level of Care Code New Pt Level 4 (46097) Diagnoses Greater trochanteric bursitis of right hip M70.61 Osteoarthritis of right hip M16.11 Right lumbar radiculitis M54.16 CPT Codes Coding - Joint 7: 19484 - Glenohumeral/Tronchanteric Bursa/Intraarticular ([id number])
[2024-09-26 08:27] VITALS: BMI 21.4
== END 2024-09-26 09:07 | disposition home or self-care (01) ==
PROVIDERS: PCP Internal Medicine; Visit Provider Physician Assistant
DX: M70.61 Trochanteric bursitis, right hip (principal); M16.11 Unilateral primary osteoarthritis, right hip; M54.16 Radiculopathy, lumbar region
CPT/HCPCS: 20610; 99204

== ENCOUNTER 2024-10-16 14:24 | Outpatient (AMB) | payer MEDICARE, MEDICAID, SELFPAY ==
--- OUTSIDE RECORDS SUMMARY | 2024-10-16 14:27 | XMS_ITS ---
Author Organization [facility] Address [address] [place] [address] Care Team Providers Care Break And Load Operator Name Role Phone Rhea Martinez Primary Care Provider David Vazquez [phone] REASON FOR VISIT rx diab shoe Medications Medication SIG (Take, Route, Frequency, Duration) Notes Start Date End Date Status Extra Depth Diabetic Shoes with 3 Pair Custom heat-molded multi-density innersoles for 1 year Dx: Active Encounters Encounter Location Date Provider Diagnosis [address] [address] 07/03/2024 David Ndiaye Type 1 diabetes mellitus [...] Details Provider Name:Rachele cannon, 11/14/2024 01:30:00 PM, [address] [place] [address], [phone], Progress Notes * Arun MCKINNEYOB:1960 (63 yo M)Acc No.[id number]:07/03/2024 Patient:?Simone Mckinney :1960???Age:63 Y???Sex:Male Address:[address] [place] [address], [facility] [place], [address] * Refills? Refill Extra Depth Diabetic Shoes with 3 Pair Custom heat-molded multi-density innersoles, 1 pair shoes/3 sets inserts, for 1 year, Dx:, Refills=0 * true * Date:? Generated for Cassandra alexis/Norma/eTdemetriosmitting on:?10/16/2024 02:27 PM EST
--- OUTSIDE RECORDS SUMMARY | 2024-10-16 14:27 | XMS_ITS | Encounter Summary ---
Author Organization [facility], Address [address] [place] [address] Phone Care Team Providers Care Weighbridge Operator Name Role Phone Rhea Martinez MD Primary Care Provider [phone] Encounter Details Date Type Department Care Team (Late st Contact Info) Description 10/27/2021 Documentation Only [facility], [address] [place] [address] Rico Lamb MD [address] [place] [address] [place] [address] Social History Tobacco Use Types Packs/Day Years Used Date Smoking Tobacco: Former Cigarettes Q uit: 07/28/2003 Smokeless Tobacco: Never Comments:Smoking History Inf o:Every day Sex and Gender Information Value Date Recorded Sex Assigned at Not on file Legal Sex Male 4:34 PM EST Gender Identity Not on file Sexual Orientation Not on file documented as of this encounter Plan of Treatment Upcoming Encounters Date Type Department Care Team (Late st Contact Info) Description 11/10/2024 1:45 PM EDT Office Visit [facility] [address] [place] [address] Rico Lamb MD [address] [place] [address] [place] [address] documented as of this encounter Visit Diagnoses Not on filedocumented in this encounter Care Teams Weighbridge Operator Relationship Specialty Start Date End Date Rhea Martinez MD [facility] [place] [address] [place] PCP - General 07/08/19 documented as of this encounter
--- OUTSIDE RECORDS SUMMARY | 2024-10-16 14:27 | XMS_ITS | Encounter Summary ---
Author Organization [facility], Address [address] [place] [address] Phone Care Team Providers Care Vest Baster Name Role Phone Rhea Martinez MD Primary Care Provider [phone] Encounter Details Date Type Department Care Team (Late st Contact Info) Description 08/11/2024 Documentation Only [facility] [address] [place] [address] Margareth Garcia [address] [place] [address] Social History Tobacco Use Types Packs/Day Years [...] Visit [facility] [address] [place] [address] Rico Lamb MD [address] [place] [address] documented as of this encounter Visit Diagnoses Not on filedocumented in this encounter Care Teams Vest Baster Relationship Specialty Start Date End Date Rhea Martinez MD [facility] [place] [address] [place] PCP - General 07/08/19 documented as of this encounter
--- OUTSIDE RECORDS SUMMARY | 2024-10-16 14:27 | XMS_ITS | Patient Health Record ---
Author Organization [facility] Address [address] [place] [address] Care Team Providers Care Automotive Tire Testing Supervisor Name Role Phone Rhea Martinez Primary Care Provider David Vazquez Unavailable [phone] Vivienne Greene Unavailable [phone] Allergies Allergen (clinical drug ingredient) Drug/Non Drug Allergy documented on EMR Reaction Allergy Type Onset Date Status acetaminophen Tylenol Unknown Drug Allergy Act john Cortisone raises BP Drug Allergy Active Results Component Value Reference Range Notes HEMOGLOBIN A1C (GLYCOHEMOGLO BIN) Reviewed date:06/02/2024 01:34:07 PM Interpretation: Performing Lab: Notes/Report: TOTAL HEMOGLOBIN (HGBA1C) 7.4 HEMOGLOBIN A1C (GLYCOHEMOGLO BIN) Reviewed date:08/25/2024 02:20:14 PM Interpretation: Performing Lab: Notes/Report: TOTAL HEMOGLOBIN (HGBA1C) 7.6 HEMOGLOBIN A1C (GLYCOHEMOGLO BIN) Reviewed date:03/10/2024 01:50:46 PM Interpretation: Performing Lab: Notes/Report: HEMOGLOBIN A1C (HH) 7.9 Reason For Referral No Information Medications Medication [...] Polyneuropathy due to type 2 diabetes mellitus (784497789) Type 2 diabetes mellitus with diabetic polyneuropathy (E11.42) Active confirmed Problem Acquired hammer toe of right foot (3283320062214811 ) Other hammer toe(s) (acquired), right foot (M20.41) Active confirmed Response to treatment, Improvemen t Problem Acquired hammer toe of left foot (5970328675043927 ) Other hammer toe(s) (acquired), left foot (M20.42) Active confirmed Response to treatment, Improvemen t Problem Polyneuropathy due to diabetes mellitus type I (365694049) Type 1 diabetes mellitus with diabetic polyneuropathy (E10.42) Active confirmed Vital Signs Blood pressure diastolic 80 mm Hg 08/25/2024 Height 5ft3in in 08/25/2024 Blood pressure systolic 125 mm Hg 08/25/2024 Weight 120 lbs 08/25/2024 BMI 21.25 kg/m2 08/25/2024 Procedures Procedure Date Ordered Date Performed Result Body Sit e 19522-JWMHMTG NAIL, 6 OR MORE 08/25/2024 N/A 56458-XKXD SKIN LESIONS, OVER 4 08/25/2024 N/A Encounters Encounter Location Date Provider Diagnosis [facility] [address] [place] [address] 12/17/2023 David Ndiaye Other viral warts B07.8 [...] right foot M20.41 and Ingrowing nail L60.[address] [address] 03/10/2024 David Ndiaye Other viral warts B07.8 [...] right foot M20.41 and Ingrowing nail L60.[address] [address] 06/02/2024 David Ndiaye Other viral warts B07.8 [...] right foot M20.41 and Ingrowing nail L60.[address] [address] 08/25/2024 Vivienne Greene Type 2 diabetes mellitus with diabetic polyneuropathy E11.42 ; Tinea unguium B35.1 ; Other hammer toe(s) (acquired), right foot M20.41 and Other hammer toe(s) (acquired), left foot M20.42 [facility] [address] [place] [address] 07/03/2024 David Ndiaye Type 1 diabetes mellitus with diabetic polyneuropathy E10.42 Assessments Encounter Date Diagnosis (ICD Code) Assessment Notes Treatment Notes Treatment Clinical Notes Section Notes 12/17/2023 Other viral warts (ICD-10 - B07.8) [...] with diabetic polyneuropathy (ICD-10 - E10.42) 12/17/2023 Pain in right toe(s) (ICD-10 - [...] B35.1) 03/10/2024 Tinea unguium (ICD-10 - B35.1) 12/17/2023 Skin disease (ICD-10 - L98.9) 03/10/2024 [...] L60.0) 12/17/2023 Ingrowing nail (ICD-10 - L60.0) Plan Of Treatment Pending Test Test Name Order Date 52450-VJBBVJO NAIL, 6 OR MORE 08/25/2024 32908-DANI SKIN LESIONS, OVER 4 08/25/20 49372-BBGG SKIN LESIONS, OVER 4 09/20/19 09051-BVFO SKIN LESIONS, OVER 4 11/24/19 40329-SQPA SKIN LESIONS, 2 TO 4 02/02/20 Next Appt Details Provider Name:Rachele Irving cannon, 11/14/2024 01:30:00 PM, [address] [place] [address], [phone], Insurance Providers Payer Name Payer Address Payer Phone Subscriber Number Group Number Insured Name Patient Relationship to Insured Coverage Start Date Coverage End Date Medicare National [employer] [address] [place] [address] [id number] Simone Mir Self - patient is the insured Medical (General) History Medical History History ICD Code Arthritis Back,Hip,and Knee pain Broken bones CAD (Cholesterol) type I diabetes Gall bladder problems Heart disease High blood pressure Kidney disease Lung disease COPD Surgical History Surgery Date(Month/Year) Hospitalization History Reason Date(Month/Year) [facility]- breathing issues 08/16/24
--- OUTSIDE RECORDS SUMMARY | 2024-10-16 14:27 | XMS_ITS | Clinical Summary ---
Author Organization [employer] Address [address] [facility] [address] [place] [address] Care Team Providers Care Broom Maker Name Role Phone Unavailable Primary Care Provider Unavailabl e Allergies No known active allergies Medications albuterol 108 (90 Base) MCG/ACT inhaler 2 puffs as needed Active aspirin 81 MG EC tablet 1 tablet Active bethanechol (Urecholine) 50 MG tablet Take 50 mg by mouth 2 times daily. Active carBAMazepine XR (TEGretol XR) 200 MG 12 hr tablet Take 200 mg by mouth at bedtime. Active carvedilol (Coreg) 12.5 MG tablet TAKE 1 TABLET BY MOUTH TWICE DAILY IN THE MORNING AND IN THE EVENING WITH MEALS Active cholecalciferol (Vitamin D-[address]) 25 MCG (1000 UT) tablet 1 tablet Active Breo Ellipta 100-25 MCG/ACT aerosol powder INHALE 1 PUFF BY MOUTH EVERY DAY (for COPD) Active gabapentin (Neurontin) 100 MG capsule TAKE 1 CAPSULE BY MOUTH TWICE DAILY NEEDED FOR PAIN Active Accu-Chek Guide test strip Use Up to 4 times daily for blood sugar monitoring/CGM calibration E10.40 E10.51 3 Active NovoLOG 100 UNIT/ML solution Inject 70 Units under the skin in the morning. 3 Active lisinopril 40 MG tablet Take 40 mg by mouth Once per day. Active Myrbetriq 25 MG 24 hr tablet Take 1 tablet by mouth in the morning. 4 Active polyethylene glycol, PEG, 3350 (Glycolax) 17 GM/SCOOP powder as directed Active potassium citrate CR (Urocit-K-10) 10 mEq ER tablet Take 10 mEq by mouth. 4 Active rosuvastatin (Crestor) 40 MG tablet Take 40 mg by mouth Once per day. Active sildenafil (Viagra) 100 MG tablet TAKE 1 TABLET BY MOUTH EVERY DAY NEEDED, 30 MINUTES TO 4 HOURS BEFORE SEXUAL ACTIVITY Active tamsulosin (Flomax) 0.4 MG 24 hr capsule Take 0.4 mg by mouth. 1 Active Spiriva HandiHaler 18 MCG inhalation capsule USE 1 CAPSULE FOR INHALATION ONCE A DAY DO NOT SWALLOW CAPSULE Active triamcinolone (Kenalog) 0.5 % cream 0 Active Immunizations Name Administration Dates Next Due Influenza injectable quadriv alent IIV4 with preservative 06/09/2019,06/08/2017,06/06/2016 Influenza injectable quadriv alent preservative free 06/27/2022,06/20/2021,06/18/2018 Influenza, High Dose Seasona l, Preservative Free 06/04/2015 Influenza, IIV3, injectable 06/26/2011 Td (adult), 5 Lf tetanus tox oid, preservative free, adsorbed 02/24/2013 Tdap 06/20/2021 Zoster, Recombinant 03/01/2023,12/28/2022 Social History Tobacco Use Types Packs/Day Years Used Date Smoking Tobacco: Former Cigarettes Smokeless Tobacco: Never Tobacco Cessation:Counseling Given: Not Answered Sex and Gender Information Value Date Recorded Sex Assigned at Male 10/26/2022 1:41 PM EST Legal Sex Male 11:55 AM EST Gender Identity Male 10/26/2022 1:41 PM EST Sexual Orientation Don't know 10/26/2022 1: 41 PM EST Last Filed Vital Signs Vital Sign Reading Time Taken Comments Blood Pressure 128/70 01/09/2024 11:06 AM EDT Pulse 84 11/23/2022 3:34 PM EDT Temperature - - Respiratory Rate - - Oxygen Saturation - - Inhaled Oxygen Concentration - - Weight - - Height - - Body Mass Index - - Plan of Treatment Health Maintenance Due Date Last Done Comments CT Colonography 1959 Colonoscopy 1959 Colorectal Cancer Screening 1959 Dental Oral Exam 1959 Dental Prophylaxis 1959 Dental X-Ray: Full Mouth 1959 Depression Screening 1959 FIT DNA/Cologuard 1959 FIT 1959 FOBT 1959 Lipid Panel 1959 SDOH Screening 1959 Sigmoidoscopy 1959 Alcohol/Substance Use Screening 1971 Hepatitis C Screening 1977 Pneumococcal Vaccine: 50+ Years (1 of 2 - PCV) 1978 RSV Patients and Patients Aged 60 years or older (1 - Risk 60-74 years 1-dose series) 2019 COVID-19 Vaccine ( season) 2024 10/23/2023, 08/14/2022, 07/11/2021, Additional history exists Influenza Vaccine (#1) 2024 , 06/27/2022, 06/20/2021, Additional history exists Dental X-Ray: Bitewings 12/21/2024 12/21/2023 Tobacco Screening 01/08/2025 01/09/2024 DTaP/Tdap/Td Vaccines (2 - Td or Tdap) 06/20/2031 06/20/2021, 02/24/2013 Zoster Vaccines Completed 03/01/2023, 12/28/2022 HIB Vaccines Aged Out No longer eligi ble based on patient's age to complete this topic HPV Vaccines Aged Out No longer eligi ble based on patient's age to complete this topic Hepatitis A Vaccines Aged Out No long er eligible based on patient's age to complete this topic Hepatitis B Vaccines Aged Out No long er eligible based on patient's age to complete this topic IPV Vaccines Aged Out No longer eligi ble based on patient's age to complete this topic Meningococcal Vaccine Aged Out No hari hung eligible based on patient's age to complete this topic RSV under 20 months Aged Out No longe r eligible based on patient's age to complete this topic Rotavirus Vaccines Aged Out No longer eligible based on patient's age to complete this topic Procedures Procedure Name Priority Date/Time Associated Diagnosis Comments BITEWING - SINGLE RADIOGRAPHIC IMAGE Routine 12/21/2023 1:00 PM EDT from Last 3 Months or Most Recently Relevant to Health Maintenance Insurance MEDICARE [facility] MEDICAID STAND ADULT
--- OUTSIDE RECORDS SUMMARY | 2024-10-16 14:27 | XMS_ITS ---
[facility] polina Valliant Address [address] [place] [address] Care Team Providers Care Passenger Agent Name Role Phone Rhea Martinez Primary Care Provider David Vazquez Unavailable [phone] Allergies Allergen (clinical drug ingredient) Drug/Non Drug [...] 024 Encounters Encounter Location Date Provider Diagnosis [facility] [address] [place] [address] 06/02/2024 David Ndiaye Other viral warts B0 [...] Provider Name:Rachele cannon, 11/14/2024 01:30:00 PM, [address] [facility], [place], [address], Procedure Notes * Category Sub-Category Detail Notes [...] as necessary. Patient chooses, no pharmaceutical tx (07319) Keratoma Treatment Parring or Cutting o f Benign Hyperkeratotic Lesion(s) (-56) 2-4 Lesions - The Benign hyperkeratotic lesions, as described above were pared, and/or cut utilizing a sterile 15 blade, tissue nippers, and/or dremel - 71265 Progress Notes * Arun MCKINNEYOB:1960 (63 yo M)Acc No.[id number]:06/02/2024 Progress Note Patient:?Mckinney, Simone Provider:?David Ndiaye DPM :1960???Age:63 Y???Sex:Male Carrington e:06/02/2024 Address:[address] [place] [address] Pcp:Rhea Martinez Subjective: * Chief Complaints: * [...] Cramps/ Resting?denies.?Muscle cramps / walking?admits.?Generalized aches and pains?admits.?Weakness?denies.?Integ.:?Hyas?denies.?Scars?denies.?Corns/calluses?admits.?Ingrown nails?admits.?Painful nails?denies.?Open Sores?denies.?Rashes?denies.?Neurologic:?Difficulty sleeping?admits.?Brain disorder?denies.?Numbness?denies.?Balance trouble?denies.?Confusion?denies.?Fainting/blackouts?denies.?Tingling?denies.?Tr emors?denies.? [...] as necessary. Patient chooses, no pharmaceutical tx (24646).?Keratoma Treatment:?Parring or Cutting of Benign Hyperkeratotic Lesion(s)?(-56) 2-4 Lesions - The Benign hyperkeratotic lesions, as described above were pared, and/or cut utilizing a sterile 15 blade, tissue nippers, and/or dremel - 59266.? * Procedure Codes:?49132 DEBRI DE NAIL, 6 OR MORE, Modifiers: XS 95686 TRIM SKIN LESIONS, 2 TO 4, Modifiers: XS * Follow Up:?3 Months * Images: * Sign off status: Completed true * Provider:?David Ndiaye DPM Date:? 024 Generated for Cassandra alexis/Norma/Saud on:?10/16/2024 02:26 PM EST History and Physical Notes * [...]
--- OUTSIDE RECORDS SUMMARY | 2024-10-16 14:27 | XMS_ITS | Clinical Summary ---
Author Organization [facility], Address [address] [place] [address] [place] [address] Phone Care Team Providers Care Fuel Cell Binder Name Role Phone Rhea Martinez MD Primary Care Provider Allergies Active Allergy Reactions Criticality Noted Date Comments Acetaminophen 10/09/2023 Other Reaction(s): Unknown Adalimumab Other (see comments) 08/24/2021 Cortisone 10/09/2023 Other Reaction(s): raises BP Duloxetine Other (see comments) 12/20/2016 Pregabalin Other (see comments) 12/20/2016 Medications carBAMazepine XR (TEGretol XR) 200 MG 12 hr tablet Comments: Filled Date: Jun 08 2017 12:00AM Patient Notes: TAKE ONE TABLET BY MOUTH AT BEDTIME Duration: 90 7 Active gabapentin (NEURONTIN) 100 MG capsule 1 cap Active HYDROcodone-yoselyn taminophen (NORCO) 5-325 MG per tablet Comments: Filled Date: Jun 08 2017 12:00AM Patient Notes: TAKE ONE TABLET BY MOUTH EVERY DAY Duration: 30 7 Active insulin aspart (NovoLOG) 100 UNIT/ML injection Inject 70 Units under the skin daily 9 Active lisinopril (PRINIVIL,ZESTR IL) 40 MG tablet Take 1 tablet by mouth 1 (one) time each day Active metoclopramide (REGLAN) 10 MG tablet Comments: Filled Date: May 31 2017 12:00AM Patient Notes: TAKE 1 TABLET BY MOUTH 30 MINUTES BEFORE MEALS AND AT BEDTIME NEEDE D (MAX OF 4 TIMES PER DAY) Duration: 30 6 Active rosuvastatin (CRESTOR) 40 MG tablet Take 40 mg by mouth daily 7 Active sildenafil (VIAGRA) 100 MG tablet TAKE 1 TABLET BY MOUTH ONCE DAILY NEEDED 9 Active tamsulosin (FLOMAX) 0.4 MG 24 hr capsule Take 0.4 mg by mouth 1 (one) time each day 1 Active Contour Next Test test strip TEST BLOOD SUGAR 10 TIMES PER DAY DIRECTED 1 Active aspirin (ST AMANDA) 81 MG EC tablet Take 81 mg by mouth 1 (one) time each day Active bethanechol (URECHOLINE) 50 MG tablet Take 50 mg by mouth in the morning and 50 mg in the evening and 50 mg before bedtime. Active Glucagon 3 MG/DOSE powder Administer into affected nostril(s) Active potassium citrate 10 MEQ (1080 MG) CR tablet Take 1 tablet (10 mEq total) by mouth in the morning and 1 tablet (10 mEq total) at noon and 1 tablet (10 mEq total) in the evening. Take with meals. Do not crush, chew, or split.. 90 tablet 3 4 Active Myrbetriq 25 MG tablet sustained-relea se 24 hour Take 1 tablet by mouth 1 (one) time each day Active carvedilol (COREG) 12.5 MG tablet Take 2 tablets (25 mg total) by mouth in the morning and 2 tablets (25 mg total) in the evening. Take with meals. 360 tablet 3 4 05/19/20 25 Active Active Problems Problem Noted Date Diagnosed Date Benign hypertensive renal disease 02/09/2021 Renal disorder due to type 1 diabetes mellitus 0 02/06/2020 Hypertensive disorder 02/06/2020 Chronic kidney disease stage 3 02/06/2020 Hyperlipidemia 09/07/2017 Overview (02/06/2020): Last Assessment & Plan: LDL goal is <100 Continues on high intensity statin therapy Type 1 diabetes mellitus with diabetic neuropath y 09/06/2017 Overview (07/06/2022): DIABETES HISTORY Diagnosis - type 1 diabetes, dx at age 6 Treatment history - insulin pump approximately early ; upgrade to Medtronic 670G with Smartguard, March 2018 Last Assessment & Plan: Overall glucose control per Simone's CGM report continues to be in very good range with low rate of hyper- and hypoglycemia despite his recent health issues, encouraged to continue his excellent efforts Simone is encouraged to continue to do his best with healthy eating and staying active Up to date on COVID vaccine Encouraged to continue current bowel regimen until bowel movements are more regular, advised to keep well hydrated and continue electrolyte enhanced ORS Simone is encouraged to call with any questions or concerns, he will return in 3 months to meet with Roxy Morgan and in 6 months to meet with me Resolved Problems Problem Noted Date Diagnosed Date Resolved Date Chronic obstructive pulmonary disease 09/07/2017 02/06/2020 Type 1 diabetes mellitus 07/04/201705/2021 Overview (02/06/2020): DIABETES HISTORY Diagnosis - type 1 diabetes, dx at age 6 Treatment history - insulin pump approximately early ; upgrade to Medtronic 670G with Smartguard, March 2018 Last Assessment & Plan: Overall glucose control per Simone's self report seems to continue to be in very good range with low rate of hyper- and hypoglycemia Simone is encouraged to do his best with healthy eating and staying active as he practices social distancing We discussed the protocol should his current allergy symptoms feel different than his usual allergy symptoms, in particular if these become associated with chills, fevers, body aches, etc Simone is encouraged to call with any questions or concerns Last Assessment & Plan: Peripheral tissues without recent trauma, neuropathy 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 stable Last Assessment & Plan: Eye care is up to date Blood pressure is well controlled Blood sugar remains in very good control with modest variability and large percentage of blood sugars in target range Encounters Date Type Department Care Team Description 08/11/2024 Documentation Only [facility], [address] [place] [address] Margareth Garcia from Last 3 Months Immunizations Name Administration Dates Next Due Influenza Split High Dose Pr eservative Free IM 06/04/2015 Influenza, Quadrivalent, Preservative Free 06/18 Influenza, Quadrivalent, With Preservative 06/09,06/08/2017,06/06/2016 Influenza, Unspecified 06/26/2011 Pfizer SARS-COV-2 12/13/2020,11/22/2020 TD Preservative Free 02/24/2013 Family History Medical History Relation Comments Heart disease Father Hypertension Father Diabetes Mother type 2 Hypertension Mother Cancer Sibling 1 Hypertension Sibling 1 Hypertension Sibling 2 sister Cancer Sibling 3 x2 breast Relation Status Comments Father Mother Sibling 1 Sibling 2 Sibling 3 Social History Tobacco Use Types Packs/Day Years Used Date Smoking Tobacco: Former Cigarettes Q uit: 07/28/2003 Smokeless Tobacco: Never Comments:Smoking History Inf o:Every day Sex and Gender Information Value Date Recorded Sex Assigned at Not on file Legal Sex Male 4:34 PM EST Gender Identity Not on file Sexual Orientation Not on file Last Filed Vital Signs Vital Sign Reading Time Taken Comments Blood Pressure 110/70 08/04/2019 12:00 PM EST Pulse - - Temperature - - Respiratory Rate - - Oxygen Saturation - - Inhaled Oxygen Concentration - - Weight 57.6 kg (127 lb) 08/04/2019 12:00 PM EST Height 160 cm (5' 3 ) 08/04/2019 12:00 PM EST Body Mass Index 22.5 08/04/2019 12:00 PM EST Plan of Treatment Upcoming Encounters Date Type Department Care Team (Late st Contact Info) Description 11/10/2024 1:45 PM EDT Office Visit [facility] [address] [place] [phone] Rico Lamb MD [address] [place] [address] [place] [id number] Health Maintenance Due Date Last Done Comments Pneumococcal Vaccine: 65+ Years (1 of 2 - PCV) 1966 Pneumococcal Vaccine: Pediatrics (0 to 5 Years) and At-Risk Patients (6 to 64 Years) (1 of 2 - PCV) 1966 Colorectal Cancer Screening: Annual FOBT 2008 Colorectal Cancer Screening: Colonoscopy 2008 Colorectal Cancer Screening: Sigmoidoscopy 2008 Diabetes: Ophthalmology Exam 11/24/2019 Diabetes: Pedal Pulse Checked 11/24/2019 Diabetes: Sensory Foot Exam 11/24/2019 Diabetes: Visual Foot Exam 11/24/2019 Influenza Vaccine (#1) 2024 2, 06/20/2021, 06/09/2019, Additional history exists Diabetes: Hemoglobin A1C 07/03/2024 024, 07/05/2023, 07/04/2022, Additional history exists Hepatitis B Vaccine Aged Out No longe r eligible based on patient's age to complete this topic Procedures Procedure Name Priority Date/Time Associated Diagnosis Comments HEMOGLOBIN A1C Routine 07/05/2023 12:15 PM EDT Chronic kidney disease stage 3 (HCC) from Last 3 Months or Most Recently Relevant to Health Maintenance Results * (ABNORMAL) Hemoglobin A1c (07/05/2023 12:15 PM EDT) Hemoglobin A1C 7.4(H) (4.0-5.6) % [employer] Comment: MONITORING: In known diabetic patients, hemoglobin A1c targets should be discussed with health care provider. DIAGNOSTIC USE: ??The [place] Diabetes Association (ADA) and the World Health Organization (WHO) recommend the use of HbA1c to diagnose diabetes using a threshold of 6.5%. Patients who have an HbA1c between 5.7% and 6.4% are considered at increased risk for developing diabetes in the future. CAUTION: Falsely low HbA1c results may be observed in patients with hemolytic anemia, homozygous forms of abnormal hemoglobin (e.g. SS, CC, SC), , recent blood loss or hemoglobin F greater than 7%. Fructosamine may be used as an alternate test in these cases. REFERENCE: ADA: Standards of Medical Care in Diabetes 2020, The Journal of Clinical and Applied Research and Education Volume 43, Supplement 1 Testing performed or reported by [facility], a Service of [facility], [address] [place] [id number] Curtis Marks MD, Occasional Babysitter [facility]# [id number] Blood (Blood, Venous) 07/05/2023 12:15 PM EDT 07/05/2023 12:26 PM EDT us Rico Lamb MD LAB BLOOD ORDERABLES Final Res ult [facility] from Last 3 Months or Most Recently Relevant to Health Maintenance Insurance MEDICARE MEDICAID [place] Care Teams Fuel Cell Binder Relationship Specialty Start Date End Date Rhea Martinez MD [facility] [place] [address] [place] PCP - General 07/08/19
--- OUTSIDE RECORDS SUMMARY | 2024-10-16 14:27 | XMS_ITS | Encounter Summary ---
Author Organization [facility], Address [address] [place] [address] Phone Care Team Providers Care Yacht Captain Name Role Phone Rhea Martinez MD Primary Care Provider [phone] Encounter Details Date Type Department Care Team (Late st Contact Info) Description 07/06/2022 Documentation Only [facility], [address] [place] [address] Rico Lamb MD [address] [place] [address] [place] [address] Social History Tobacco Use Types [...] Visit [facility] [address] [place] [address] Rico Lamb MD [address] [place] [address] [place] [address] documented as of this encounter Visit Diagnoses Not on filedocumented in this encounter Care Teams Yacht Captain Relationship Specialty Start Date End Date Rhea Martinez MD [facility] [place] [address] [place] PCP - General 07/08/19 documented as of this encounter
--- OUTSIDE RECORDS SUMMARY | 2024-10-16 14:27 | XMS_ITS ---
Author Organization [facility] pol[facility] [place] Address [address] [place] [address] Care Team Providers Care Game Bird Farmer Name Role Phone Rhea Martinez Primary Care Provider David Vazquez Unavailable [phone] Vivienne Greene Unavailable [phone] Allergies Allergen (clinical drug ingredient) Drug/Non Drug [...] Polyneuropathy due to type 2 diabetes mellitus (966803750) Type 2 diabetes mellitus with diabetic polyneuropathy (E11.42) Active confirmed Vital Signs Height 5ft3in in 08/25/2024 Weight 120 lbs 08/25/2024 BMI 21.25 kg/m2 08/25/2024 Blood pressure systolic 125 mm Hg 08/25/20 Blood pressure diastolic 80 mm Hg 024 Procedures Procedure Date Ordered Date Performed Result Body Sit e 29046-SGYJOVR NAIL, 6 OR MORE 08/25/2024 N/A 63555-NTUC SKIN LESIONS, OVER 4 08/25/2024 N/A Encounters Encounter Location Date Provider Diagnosis [facility] [place] [address] [place] [address] 08/25/2024 Vivienne Greene Type 2 diabetes mellitus [...] Treatment Pending Test Test Name Order Date [id number] NAIL, 6 OR MORE 08/25/2024 56558-GMAU SKIN LESIONS, OVER 4 08/25/20 24 Next Appt Details Follow Up: 3 Months, Reason: Provider Name:Rachele cannon, 11/14/2024 01:30:00 PM, [address] [place], [address], Procedure Notes * Category Sub-Category Detail Notes [...] use of a nail nipper and/or dremel-type grinder set up operator universal, to a more viable healthy nail plate [...] to maintain effectiveness in symptomatic relief - 89585 Keratoma Treatment Parring or Cutting o f [...] instrumentation by the physician of record - 56706 Progress Notes * Arun MIROB:1960 (64 yo M)Acc No.[id number]:08/25/2024 Progress Note Patient:?Wilfred MIRn Provider:?Vivienne Greene DPM :1960???Age:64 Y???Sex:Male Carrington e:08/25/2024 Address:[address] [place] [address], [id number] Pcp:Rhea Martinez Subjective: * Chief Complaints: * [...] t Surgical History * Hospitalization/Major Diagno stic Procedure:?[facility]- breathing issues 08/16/24 * Family History:?Mother: [...] use of a nail nipper and/or dremel-type grinder set up operator universal, to a more viable healthy nail plate [...] to maintain effectiveness in symptomatic relief - 90578.?Keratoma Treatment:?Parring or Cutting of Benign Hyperkeratotic Lesion(s)?(-57) [...] instrumentation by the physician of record - 01799.? * Procedure Codes:?38215 DEBRI DE NAIL, 6 OR MORE, Modifiers: XS 33683 TRIM SKIN LESIONS, OVER 4, Modifiers: XS [...] DPM Date:?10/26/2023 Generated for Cassandra alexis/Norma/Juan Mitting on:?10/16/2024 02:27 PM EST History and Physical Notes * [...]
[2024-10-16 14:39] VITALS: BP 142/90; PULSE 76; TEMP 36.5; O2SAT 97; BMI 21.6
--- NOTE | 2024-10-16 14:39 | A.OFFPC_ITS ---
Vital Signs 10/16/24 14:39 Height 5 ft 2 in Weight 118 lb 4 oz BMI 21.6 BP 142/90 H Blood Pressure Location Lt brachial Position Sitting Pulse 76 Pulse Source Pulse Oximeter Temp 97.7 F Temp Source Temporal Artery Scan Pulse Oximetry (%) 97 Oxygen Delivery Method Room Air Intake Visit Reasons: 3 month f/u Intake Note: Pt is here for 3 month FU previous hemoglobin A1C was 8.1 % on 09/29/[address] Mcbride/Assistant At Surgery. Lettuce Cutter Required: No Accompanied by: Self / Same As Patient Allergies adalimumab [From Humira] Adverse Reaction (Verified 09/26/24 08:37) sleepy pregabalin [From Lyrica] Adverse Reaction (Verified 09/26/24 08:37) Dizzyness Tobacco use date assessed: 02/05/24 Dental Screening Dental Screen Date: 11/01/23 HPI 3 month f/u HPI Details The patient is a 64-year-old male presenting with a follow-up for management of chronic medical conditions including COPD, diabetes, and right hip pain. The patient has a history of COPD and significant coronary artery disease managed with carvedilol and lisinopril. He also has hypertension and hypercholesterolemia, for which he takes aspirin and rosuvastatin. His chronic kidney disease necessitates follow-up with nephrology, advised after recent evaluations. The patient also has diabetes mellitus type 1, with a noticeable increase in hemoglobin A1c to 8.2 due to a recent course of prednisone and cortisone for his hip condition. For diabetes management, insulin therapy is ongoing, and the patient monitors blood glucose levels closely. Regarding his right hip pain, the patient has been diagnosed with trochanteric bursitis and received injections. Imaging revealed an old healed fracture deformity at the right femoral diaphysis. He notes increased pain, especially with movements, and currently uses a walker at home for support. He denies recent falls but acknowledges the significant impact on his mobility. The severe atherosclerotic disease posed a concern; however, the patient denies any current chest pain. Historical visits to cardiology were due to coronary artery disease with no recent stress test or chest discomfort reported. The pleural effusion assessment in September showed no changes compared to past imaging, and regular chest x-rays are planned to monitor this condition. [facility] Medical History Urinary frequency COPD exacerbation Bloating Hypoglycemia Chronic constipation Tinea pedis, left Hx of fracture of femur Eczema Cholelithiasis Carpal tunnel syndrome Ankle fracture Diabetes mellitus type 1 Chronic kidney disease (CKD) stage G2/A3, mildly decreased glomerular filtration rate (GFR) between 60-89 mL/min/1.73 square meter and albuminuria creatinine ratio greater than 300 mg/g Hypercholesterolemia Diabetic neuropathy COPD (chronic obstructive pulmonary disease) Coronary artery disease Hypertension Surgical History Hx of colonoscopy Hx of eye surgery Hx of appendectomy H/O umbilical hernia repair History of cholecystectomy History of elbow surgery History of carpal tunnel release Family History Father Hypertension Stroke CVD (cerebrovascular disease) Mother Hypertension CVD (cerebrovascular disease) Diabetes Sister HX: breast cancer Paternal Grandfather Colon cancer Social History Housing: House Alcohol intake: former Patient Tobacco Use Status: Former Tobacco user Tobacco use type: Cigarette Years Smoked: 2002 quit 08/12 e-Cigarette/Vaping Use: Never Used Second Hand Smoke Exposure: No Substance Use Type: Marijuana service: No Current occupational status: disabled Cognitive needs: No Hearing needs: No Vision needs: Yes Questionnaire PHQ-9 Over the last 2 weeks, how often have you been bothered by any of the following problems? 1. Little interest or pleasure in doing things: not at all 2. Feeling down, depressed, or hopeless: not at all 3. Trouble falling or staying asleep, or sleeping too much: not at all 4. Feeling tired or having little energy: not at all 5. Poor appetite or overeating: not at all 6. Feeling bad about yourself - or that you are a failure or have let yourself or your family down: not at all 7. Trouble concentrating on things, such as reading the newspaper or watching television: not at all 8. Moving or speaking so slowly that other people could have noticed. Or the opposite - being so fidgety or restless that you have been moving around a lot more than usual: not at all 9. Thoughts that you would be better off or of hurting yourself in some way: not at all Total score: 0 Depression Screening Interpretation: Negative Depression Screening Done: Yes 94311 - PHQ-9 Billing: Yes Source: Developed by Drs. Dylan Mendez, Arabella Griffin, Mick Valero and colleagues, with an educational teto from [employer]. Thrive Questionnaire Date Thrive assessed: 10/16/24 I am a: Patient What is your living situation today?: I have a steady place to live Within the past 12 months, did the food you bought not last and you didn't have the money to get more?: Never true Within the past 12 months, did you worry whether your food would run out before you got money to buy more?: Never true Do you have trouble paying for medicines?: No Do you have trouble getting transportation to medical appointments?: No Do you have trouble paying your heating and electricity bill?: No Do you have trouble taking care of your child, family member or friend?: No Do you have trouble with day-to-day activities such as bathing, preparing meals, shopping, managing finances, etc.?: No Are you currently unemployed and looking for a job?: No Are you interested in more education?: No Please select the resources that you would like help with: None Currently or been in a relationship where the following occur: No concerns reported THRIVE Score: 0 AUDIT C Alcohol Use Questionnaire (AUDIT-C) 1. How often do you have a drink containing alcohol?: Never 3. How often do you have six or more drinks on one occasion?: Never Total Score: 0 BARRY-7 AMB Questionnaire BARRY-7 Date BARRY - 7 assessed: 10/16/24 Feeling nervous, anxious, or on edge: 0 = Not at all Not being able to stop or control worryin = Not at all Worrying too much about different things: 0 = Not at all Trouble relaxin = Not at all Being so restless that it is hard to sit still: 0 = Not at all Becoming easily annoyed or irritable: 0 = Not at all Feeling afraid as if something awful might happen: 0 = Not at all Total BARRY-7 score (0-4 normal; 5-9 mild; 10-14 moderate; 15-21 severe): 0 Source: Developed by Arabella Umana Kurt Kroenke and colleagues, with an educational teto from [employer]. BARRY-7 Assessment Billing BARRY-7 Assessment Tool: BARRY-7 Assessment 99169 Physical exam (Primary Care) Vital Signs: Last Vital Signs Temp 97.7 F 10/16/24 14:39 Pulse 76 10/16/24 14:39 BP 142/90 H 10/16/24 14:39 Pulse Ox 97 10/16/24 14:39 Oxygen Delivery Method Room Air 10/16/24 14:39 BMI result Body Mass Index 21.6 Tobacco/Smoking Status: Tobacco use Status Tobacco use date assessed 02/05/24 10/16/24 14:46 Patient Tobacco Use Status Former Tobacco user 10/16/24 14:46 Tobacco use type Cigarette 10/16/24 14:46 e-Cigarette/Vaping Use Never Used 10/16/24 14:46 PHQ-9: PHQ-9 Score PHQ-9: Total score 0 10/16/24 14:47 Depression Screening Interpretation: Negative Thrive Assessment: Date of Thrive Assessment Date Thrive assessed 10/16/24 10/16/24 14:47 Currently or been in a relationship where the following occur: No concerns reported Const General: alert; No acute distress Eyes Conjunctivae: conjunctivae normal Resp Auscultation: clear to auscultation bilaterally Cardio Rate: regular rate Rhythm: regular rhythm GI Inspection: Yes normal to inspection Extrem General: Yes normal to inspection and No edema Coding Level of Care Code Est Pt Level 4 (29834) Complex EM visit Add On G2211 Diagnoses Essential hypertension I10 Hypertension type: essential hypertension Coronary artery disease involving [place] coronary artery of [place] heart without angina pectoris I25.10 Coronary Disease-Associated Artery/Lesion type: [place] artery [place] vs. transplanted heart: [place] heart Associated angina: without angina Pulmonary emphysema, unspecified emphysema type J43.9 COPD type: emphysema Emphysema type: unspecified Diabetic polyneuropathy associated with type 1 diabetes mellitus E10.42 Diabetes mellitus type: type 1 Diabetes mellitus complication detail: diabetic polyneuropathy Hypercholesterolemia E78.00 Chronic kidney disease (CKD) stage G2/A3, mildly decreased glomerular filtration rate (GFR) between 60-89 mL/min/1.73 square meter and albuminuria creatinine ratio greater than 300 mg/g N18.2 Type 1 diabetes mellitus with diabetic polyneuropathy E10.42 Diabetes mellitus complication status: with neurologic complications Diabetes mellitus complication detail: with polyneuropathy Benign prostatic hyperplasia with weak urinary stream N40.1; R39.12 Lower urinary tract symptom presence: symptoms present Lower urinary tract symptom detail: weak urinary stream Pleural effusion J90 Additional Codes BARRY-7 Assessment Billing - BARRY-7 Assessment Tool: BARRY-7 Assessment 80589 ([id number]) PHQ-9 - 01594 - PHQ-9 Billing: Yes ([id number]) Assessment & Plan Assessment & Plan (1) Hypertension: Code(s): I10 - Essential (primary) hypertension Category: Medical Qualifiers: Hypertension type: essential hypertension Qualified Code(s): I10 - Essential (primary) hypertension Plan: Continue with blood pressure medication. Decrease salt intake and exercise on carvedilol 25 mg twice a day lisinopril 40 mg once a day (2) Coronary artery disease: Code(s): I25.10 - Atherosclerotic heart disease of [place] coronary artery without angina pectoris Category: Medical Qualifiers: Coronary Disease-Associated Artery/Lesion type: [place] artery [place] vs. transplanted heart: [place] heart Associated angina: without angina Qualified Code(s): I25.10 - Atherosclerotic heart disease of [place] coronary artery without angina pectoris Plan: Control the cholesterol, weight, blood pressure, diabetes continue with aspirin 81 mg once a day (3) COPD (chronic obstructive pulmonary disease): Comment: HE IS A KNOWN CASE OF SEVERE COPD, REMAINS STABLE, BUT DOES COMPLAIN OF ONGOING COUGH. Code(s): J44.9 - Chronic obstructive pulmonary disease, unspecified Category: Medical Qualifiers: COPD type: emphysema Emphysema type: unspecified Qualified Code(s): J43.9 - Emphysema, unspecified Plan: Patient follows up with Pulmonary on albuterol inhaler Breo and Spiriva (4) Diabetic neuropathy: Code(s): E11.40 - Type 2 diabetes mellitus with diabetic neuropathy, unspecified Category: Medical Qualifiers: Diabetes mellitus type: type 1 Diabetes mellitus complication detail: diabetic polyneuropathy Qualified Code(s): E10.42 - Type 1 diabetes mellitus with diabetic polyneuropathy Plan: Narcotic pain meds: Is being prescribed with the understanding that these medications are potentially addictive and should be used only when absolutely necessary and must always be secured. Any remaining pills should be safely disposed off appropriately. Patient is advised that narcotics can impaired judgment and one should not drive or operate heavy machinery while taking these medications. Never share these medications with anybody and do not leave them unattended. They will not be replaced under any circumstances. (5) Hypercholesterolemia: Code(s): E78.00 - Pure hypercholesterolemia, unspecified Category: Medical Plan: Avoid fried foods, chicken skin, eggs, butter margarine, pastries and meat. Be it pork or beef they have a lot of cholesterol on rosuvastatin 40 mg once a day (6) Chronic kidney disease (CKD) stage G2/A3, mildly decreased glomerular filtration rate (GFR) between 60-89 mL/min/1.73 square meter and albuminuria creatinine ratio greater than 300 mg/g: Code(s): N18.2 - Chronic kidney disease, stage 2 (mild) Category: Medical Plan: Keep well hydrated patient has been advised to see Nephrology. (7) Diabetes mellitus type 1: Comment: Insulin Pump Dr. Rae Camargo Code(s): E10.9 - Type 1 diabetes mellitus without complications Category: Medical Qualifiers: Diabetes mellitus complication status: with neurologic complications Diabetes mellitus complication detail: with polyneuropathy Qualified Code(s): E10.42 - Type 1 diabetes mellitus with diabetic polyneuropathy Plan: Diabetes plan on insulin last hemoglobin A1c is 8.2 (8) BPH (benign prostatic hyperplasia): Code(s): N40.0 - Benign prostatic hyperplasia without lower urinary tract symptoms Category: Medical Qualifiers: Lower urinary tract symptom presence: symptoms present Lower urinary tract symptom detail: weak urinary stream Qualified Code(s): N40.1 - Benign prostatic hyperplasia with lower urinary tract symptoms; R39.12 - Poor urinary stream Plan: Patient is being followed up by Urology continuing with medications. (9) Pleural effusion: Comment: HE HAS SMALL PLEURAL EFFUSION IN THE RIGHT PLEURAL CAVITY. I CAN SEE SIMILAR FINDING IN A CHEST X-RAY PERFORMED IN 2022, THOUGH THE CURRENT FINDING IS SOMEWHAT MORE PROMINENT. I THINK THIS PLEURAL EFFUSION OR PLEURAL SCARRING IS FROM AN OLD INFECTION OR INJURY. Code(s): J90 - Pleural effusion, not elsewhere classified Category: Medical Plan: Advised to repeat CT as the Plan - Continue management of COPD with Brio and Spiriva inhalers, ensuring mouth rinsing post-inhalation. - Maintain current antihypertensive regimen with carvedilol and lisinopril. - Continuation of aspirin and rosuvastatin for coronary artery disease and hypercholesterolemia. - Diabetes management with insulin therapy, with attention to minimize corticosteroid use due to glucose impact. - Arrange a follow-up with nephrology to address chronic kidney disease concerns. - For the management of trochanteric bursitis, continue monitoring and follow up with orthopedics as necessary. Consider further orthopedic interventions if pain persists despite current management. - Address atherosclerotic disease prevention by managing diabetes, hypertension, and cholesterol control aggressively. - Continue regular assessments and imaging for monitoring pleural effusion. - Ensure follow-up appointments for each condition and coordination between specialties to optimize management of this patient's multi-morbidity profile.
== END 2024-10-16 15:27 | disposition home or self-care (01) ==
PROVIDERS: PCP Internal Medicine; Visit Provider Internal Medicine
DX: I12.9 Hypertensive chronic kidney disease with stage 1 through stage 4 chronic kidney disease, or unspecified chronic kidney disease (principal); I25.10 Atherosclerotic heart disease of native coronary artery without angina pectoris; J43.9 Emphysema, unspecified; E10.42 Type 1 diabetes mellitus with diabetic polyneuropathy; E78.00 Pure hypercholesterolemia, unspecified; N18.2 Chronic kidney disease, stage 2 (mild); N40.1 Benign prostatic hyperplasia with lower urinary tract symptoms; R39.12 Poor urinary stream; J90 Pleural effusion, not elsewhere classified

== ENCOUNTER 2024-10-16 15:33 | Outpatient (REF) | payer MEDICARE, MEDICAID, SELFPAY ==
--- NOTE | ~2024-10-16 | XR_ITS ---
EXAMINATION: XR CHEST 2 VIEWS HISTORY: J90 - Pleural effusion, not elsewhere classified COMPARISON: Comparison is made with the prior examination dated 08/16/2024. FINDINGS: PA and lateral views of the chest are submitted. There is a calcified granuloma in the left lower lung zone. The lungs are otherwise clear. Again seen is blunting of the right costophrenic angle. This is unchanged since 11/27/2022 and likely represents pleural thickening. There is no pneumothorax or pulmonary vascular congestion. The heart is normal in size. There is degenerative disc disease of the spine. XR/XR chest 2V IMPRESSION: Blunting of the right costophrenic angle which likely represents pleural thickening. No acute cardiopulmonary abnormality. Electronically signed by: Dylan Alfonso MD 10/16/2024 03:57 PM AUGUSTINE
--- OUTSIDE RECORDS SUMMARY | 2024-10-16 15:38 | XMS_ITS | Encounter Summary ---
Author Organization [facility], Address [address] [place] [address] Phone Care Team Providers Care Soccer Ball Assembler Name Role Phone Rhea Martinez MD Primary Care Provider [phone] Encounter Details Date Type Department Care Team (Late st Contact Info) Description 08/11/2024 Documentation Only [facility] [address] [place] [address] Margareth Garcia [address] [place] [address] Social History Tobacco Use Types [...] Visit [facility] [address] [place] [address] Rico Lamb MD [address] [place] [address] documented as of this encounter Visit Diagnoses Not on filedocumented in this encounter Care Teams Soccer Ball Assembler Relationship Specialty Start Date End Date Rhea Martinez MD [facility] [place] [address] [place] PCP - General 07/08/19 documented as of this encounter
--- OUTSIDE RECORDS SUMMARY | 2024-10-16 15:38 | XMS_ITS | Clinical Summary ---
Author Organization [facility], Address [address] [place] [address] [place] [address] Phone Care Team Providers Care Community Engagement Leader Name Role Phone Rhea Martinez MD Primary Care Provider [phone] Allergies Active Allergy Reactions Criticality Noted Date [...] Only [facility] [place], [address] [place] [address] Margareth Garcia from Last 3 Months [...] Visit [facility] [address] [place] [id number] Rico Lamb MD [address] [place] [address] [place] [id number] Health Maintenance Due Date Last Done Comments [...] PM EDT) Hemoglobin A1C 7.4(H) (4.0-5.6) % [facility] Comment: MONITORING: In known diabetic patients, hemoglobin A1c targets should be discussed with health care provider. DIAGNOSTIC USE: ??The [place] Diabetes Association (ADA) and the World Health [...] Supplement 1 Testing performed or reported by [facility], a Service of [facility], [address] [place] [id number] Curtis Marks MD, Rough Patcher [facility]# [id number] Blood (Blood, Venous) 07/05/2023 12:15 PM EDT 07/05/2023 12:26 PM EDT us Rico Lamb MD LAB BLOOD ORDERABLES Final Res ult [facility] from Last 3 Months or Most Recently Relevant to Health Maintenance Insurance MEDICARE MEDICAID [place] Care Teams Community Engagement Leader Relationship Specialty Start Date End Date Rhea Martinez MD [facility] [place] [address] [place] PCP - General 07/08/19
--- OUTSIDE RECORDS SUMMARY | 2024-10-16 15:38 | XMS_ITS | Encounter Summary ---
Author Organization [facility], Address [address] [place] [address] Phone Care Team Providers Care Paper Handler Name Role Phone Rhea Martinez MD Primary Care Provider [phone] Encounter Details Date Type Department Care Team (Late st Contact Info) Description 07/06/2022 Documentation Only [facility], [address] [place] [address] Rico Lamb MD [address] [place] [address] [place] [address] Social History Tobacco Use Types [...] Visit [facility] [address] [place] [place] [address] Rico Lamb MD [address] [place] [address] [place] [address] documented as of this encounter Visit Diagnoses Not on filedocumented in this encounter Care Teams Paper Handler Relationship Specialty Start Date End Date Rhea Martinez MD [facility] [place] [address] [place] PCP - General 07/08/19 documented as of this encounter
--- OUTSIDE RECORDS SUMMARY | 2024-10-16 15:38 | XMS_ITS | Clinical Summary ---
Author Organization [employer] Address [address] [facility] [address] [place] [address] Care Team Providers Care Digital Advertising Analyst Name Role Phone Unavailable Primary Care Provider [...] Recently Relevant to Health Maintenance Insurance MEDICARE [facility] MEDICAID STAND ADULT
--- OUTSIDE RECORDS SUMMARY | 2024-10-16 15:38 | XMS_ITS | Encounter Summary ---
Author Organization [facility], Address [address] [place] [address] Phone Care Team Providers Care Wagon Person Name Role Phone Rhea Martinez MD Primary Care Provider [phone] Encounter Details Date Type Department Care Team (Late st Contact Info) Description 10/27/2021 Documentation Only [facility] [place], [address] [place] [address] Rico Lamb MD [address] [place] [address] [place] [address] Social History Tobacco Use Types [...] Visit [facility] [address] [place] [address] Rico Lamb MD [address] [place] [address] [place] [address] documented as of this encounter Visit Diagnoses Not on filedocumented in this encounter Care Teams Wagon Person Relationship Specialty Start Date End Date Rhea Martinez MD [facility] [place] [address] [place] PCP - General 07/08/19 documented as of this encounter
== END 2024-10-16 15:34 | disposition home or self-care (01) ==
LOC: HO.XRAY 15:33
PROVIDERS: PCP Internal Medicine; Visit Provider Internal Medicine
DX: J90 Pleural effusion, not elsewhere classified (principal); J43.9 Emphysema, unspecified; I25.10 Atherosclerotic heart disease of native coronary artery without angina pectoris; E10.42 Type 1 diabetes mellitus with diabetic polyneuropathy; I12.9 Hypertensive chronic kidney disease with stage 1 through stage 4 chronic kidney disease, or unspecified chronic kidney disease; E78.00 Pure hypercholesterolemia, unspecified; E10.22 Type 1 diabetes mellitus with diabetic chronic kidney disease; N18.2 Chronic kidney disease, stage 2 (mild); N40.1 Benign prostatic hyperplasia with lower urinary tract symptoms; R39.12 Poor urinary stream
CPT/HCPCS: 71046; 96127; 99212

== ENCOUNTER → 2024-10-16 15:40 | Outpatient (BNV) | payer MEDICARE, MEDICAID, SELFPAY | PROVIDERS: PCP Internal Medicine; Visit Provider Radiology Diagnostic Radiology | DX: J90 Pleural effusion, not elsewhere classified (principal) | CPT/HCPCS: 71046 ==

== ENCOUNTER 2024-10-23 13:27 | Outpatient (AMB) | payer MEDICARE, MEDICAID, SELFPAY ==
--- NOTE | 2024-10-23 13:36 | A.OFFVIS_ITS ---
Vital Signs 10/23/24 13:37 Height 5 ft 2 in Weight 119 lb 0.794 oz BMI 21.8 BP 110/60 Blood Pressure Location Lt brachial Position Sitting Pulse 72 Pulse Source Pulse Oximeter Pulse Oximetry (%) 97 Oxygen Delivery Method Room Air Intake Visit Reasons: Cough Intake Note: pt is here for follow up and states he is at his baseline. 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 Allergies adalimumab [From Humira] Adverse Reaction (Verified 10/23/24 13:50) sleepy pregabalin [From Lyrica] Adverse Reaction (Verified 10/23/24 13:50) Dizzyness Medication List - Last Reconciled 10/23/24 by Meel Emerson MD albuterol sulfate 90 mcg/actuation (Ventolin HFA) 2 puffs PO Q4-6H PRN aspirin (Adult Aspirin Regimen) 81 mg PO DAILY PRN bethanechol chloride 50 mg PO BID 90 days Breo Ellipta 100-25 mcg/dose (fluticasone furoate-vilanterol) 1 ea PO DAILY NS carbamazepine ER 200 mg PO BEDTIME carvedilol 25 mg PO BID finasteride 5 mg PO DAILY 90 days gabapentin 200 mg PO DAILY PRN glucagon 3 mg/actuation (Baqsimi) mg intranasal hydrocodone-acetaminophen 5-325 mg 1 tab PO DAILY PRN 30 days hydrocodone-acetaminophen 5-325 mg 1 tab PO BID PRN 30 days insulin aspart U-100 70 units subcut DAILY insulin lispro (Humalog U-100 Insulin) 1 sliding scale dose subcut USEASDIRECTD ipratropium-albuterol 0.5 mg-3 mg(2.5 mg base)/3 mL 3 mL inhalation Q4H PRN 30 days lactulose 20 grams (30 mL) PO DAILY PRN lisinopril 40 mg PO DAILY metoclopramide HCl (Reglan) 10 mg PO Q6H PRN mirabegron ER (Myrbetriq) 25 mg PO DAILY 90 days potassium citrate ER 10 mEq PO TID rosuvastatin 40 mg PO DAILY sennosides-docusate sodium 8.6-50 mg (Senna Plus) 2 tab-caps (2 x 8.6-50 mg) PO BEDTIME sildenafil (Viagra) 100 mg PO DAILY PRN simethicone (Gas Relief (simethicone)) 125 mg PO BEDTIME Spiriva with HandiHaler (tiotropium bromide) 1 cap inhalation DAILY NS tamsulosin 0.4 mg PO DAILY 90 days Do you need a note to return to daycare/school/sports/work: No HPI HPI Cough: Details: 64 years old very pleasant gentleman is a case of chronic obstructive pulmonary disease due to his past smoking. He quit smoking back in 2009. Now he does smoke marijuana once or twice a day, mainly to minimize his pain. In August he had acute respiratory infection in and chest x-ray did show smile pleural effusion. Repeat chest x-ray she again shows some blunting of the right costophrenic angle but no free fluid. He is doing much better and continues to use his 2 inhalers, Breo and Spiriva. He hardly needs to use Ventolin inhaler. Overall he is at his baseline. [facility] Medical History Urinary frequency COPD exacerbation Bloating Hypoglycemia Chronic constipation Tinea pedis, left Hx of fracture of femur Eczema Cholelithiasis Carpal tunnel syndrome Ankle fracture Diabetes mellitus type 1 Chronic kidney disease (CKD) stage G2/A3, mildly decreased glomerular filtration rate (GFR) between 60-89 mL/min/1.73 square meter and albuminuria creatinine ratio greater than 300 mg/g Hypercholesterolemia Diabetic neuropathy COPD (chronic obstructive pulmonary disease) Coronary artery disease Hypertension Surgical History Hx of colonoscopy Hx of eye surgery Hx of appendectomy H/O umbilical hernia repair History of cholecystectomy History of elbow surgery History of carpal tunnel release Family History Father Hypertension Stroke CVD (cerebrovascular disease) Mother Hypertension CVD (cerebrovascular disease) Diabetes Sister HX: breast cancer Paternal Grandfather Colon cancer Social History Housing: House Alcohol intake: former Patient Tobacco Use Status: Former Tobacco user Tobacco use type: Cigarette Years Smoked: 2002 quit 08/12 e-Cigarette/Vaping Use: Never Used Second Hand Smoke Exposure: No Substance Use Type: Marijuana service: No Current occupational status: disabled Cognitive needs: No Hearing needs: No Vision needs: Yes Review of Systems Const All systems reviewed & are unremarkable except as noted in HPI and below Eyes Reports no additional complaints ENT Reports nasal congestion (Only mild, off and on) Card Denies irregular heart rhythm and Denies leg edema Resp Reports as per HPI GI Reports dyspepsia (Mild) Reports erectile dysfunction and Reports urinary hesitancy Musc Reports back pain (Mild) Skin/Breast Reports system reviewed and no additional complaints, except as documented Neuro Reports no additional complaints Psych Reports no additional complaints Physical Exam Vital Signs: Last Vital Signs Pulse 72 10/23/24 13:37 BP 110/60 10/23/24 13:37 Pulse Ox 97 10/23/24 13:37 Oxygen Delivery Method Room Air 10/23/24 13:37 BMI result Body Mass Index 21.8 Const General: comfortable (BUT HAS FREQUENT COUGH), no acute distress, alert and awake Orientation/consciousness: patient oriented x3 HEENT Head: Yes normal to inspection General nose exam: No nasal polyps present and No nasal discharge present Face and sinus: Yes sinuses nontender Mouth: oropharynx normal Throat: Yes posterior oropharynx normal Eyes General: appearance normal, both eyes and all related structures Neck Neck: Yes normal visual inspection, Yes no lymphadenopathy, Yes trachea midline and Yes no JVD Thyroid: Thyroid normal Chest Chest palpation & inspection: normal inspection of the chest, normal palpation of entire chest wall and no tenderness Resp Other: Percussion note hyper-resonant, Breath sounds are distant with prolonged expiratory phase. No wheezes or rhonchi are heard. Cardio Palpation: normal PMI Rate: regular rate Rhythm: regular rhythm Heart sounds: no gallops and no murmurs GI Palpation (GI): Soft to palpation, nontender, No hepatosplenomegaly present and no masses Auscultation: normal bowel sounds Back/Spine/Pelvis Thoracic/Lumbar Spine: thoracic and lumbar spine normal to inspection Skin General skin exam: no rashes or lesions noted Neuro General: patient oriented x3 and no focal motor deficits Cranial nerves: Yes CN's II-XII intact bilaterally Extrem General: Yes normal to inspection, Yes no clubbing, cyanosis or edema and Yes no calf tenderness Psych Appearance: grossly normal and well kempt Speech and movement: Normal speech and movement present Results Reviewed Results Reviewed: CHEST XRAY IMPRESSION: Blunting of the right costophrenic angle which likely represents pleural thickening. No acute cardiopulmonary abnormality. Electronically signed by: Dylan Alfonso MD 10/16/2024 03:57 PM EST Assessment & Plan Assessment & Plan (1) COPD (chronic obstructive pulmonary disease): Comment: HE IS A KNOWN CASE OF SEVERE COPD, REMAINS STABLE, BUT DOES COMPLAIN OF ONGOING COUGH. AND MILD DYSPNEA ON WALKING. Code(s): J44.9 - Chronic obstructive pulmonary disease, unspecified Category: Medical Qualifiers: COPD type: emphysema Emphysema type: unspecified Qualified Code(s): J43.9 - Emphysema, unspecified Plan: CONTINUE TO USE BREO 100-25 1 INHALATION DAILY SPIRIVA HANDIHALER 1 INHALATION DAILY. VENTOLIN HFA 2 PUFFS Q 6 HOURS P.R.N. IPRATROPIUM-ALBUTEROL SOLUTION IN THE NEBULIZER Q 4- 6 HOURS P.R.N. ONLY FOR SEVERE SHORTNESS OF BREATH. (2) Pleural effusion: Comment: HE HAS SMALL PLEURAL EFFUSION IN THE RIGHT PLEURAL CAVITY. I CAN SEE SIMILAR FINDING IN A CHEST X-RAY PERFORMED IN 2022, THOUGH THE CURRENT FINDING IS SOMEWHAT MORE PROMINENT. I THINK THIS PLEURAL EFFUSION OR PLEURAL SCARRING IS FROM AN OLD INFECTION OR INJURY. THE REPEAT CHEST X-RAY AGAIN SHOWS SOME BLUNTING OF THE RIGHT COSTOPHRENIC ANGLE AND NOW IT IS THOUGHT THAT THIS IS A CHRONIC PLEURAL THICKENING, IT DOES NOT REP RESENT ANY FREE FLUID. Code(s): J90 - Pleural effusion, not elsewhere classified Category: Medical Plan: EXPLAINED TO THE PATIENT AND TOLD THAT HE DOES NOT NEED ANY INTERVENTION FOR THIS PROCESS. Coding Level of Care Code Est Pt Level 3 (98531) Diagnoses Pulmonary emphysema, unspecified emphysema type J43.9 COPD type: emphysema Emphysema type: unspecified Pleural effusion J90
[2024-10-23 13:37] VITALS: BP 110/60; PULSE 72; O2SAT 97; BMI 21.8
--- OUTSIDE RECORDS SUMMARY | 2024-10-23 14:24 | XMS_ITS | Patient Health Record ---
[facility] Address [address] [place] [address] Care Team Providers Care Paper Machine Back Tender Name Role Phone Rhea Martinez Primary Care Provider David Vazquez Unavailable [phone] Vivienne Greene Unavailable [phone] Allergies Allergen (clinical drug ingredient) Drug/Non Drug [...] Polyneuropathy due to type 2 diabetes mellitus (712040803) Type 2 diabetes mellitus with diabetic polyneuropathy (E11.42) Active confirmed Problem Acquired hammer toe of right foot (9584233119331395 ) Other hammer toe(s) (acquired), right foot (M20.41) Active confirmed Response to treatment, Improvemen t Problem Acquired hammer toe of left foot (0964853949079327 ) Other hammer toe(s) (acquired), left foot (M20.42) Active confirmed Response to treatment, Improvemen t Problem Polyneuropathy due to diabetes mellitus type I (397559860) Type 1 diabetes mellitus with diabetic polyneuropathy (E10.42) Active confirmed Vital Signs Blood pressure diastolic 80 mm Hg 08/25/2024 Height 5ft3in in 08/25/2024 Blood pressure systolic 125 mm Hg 08/25/2024 Weight 120 lbs 08/25/2024 BMI 21.25 kg/m2 08/25/2024 Procedures Procedure Date Ordered Date Performed Result Body Sit e 36577-KTFSMDI NAIL, 6 OR MORE 08/25/2024 N/A 33992-OMFS SKIN LESIONS, OVER 4 08/25/2024 N/A Encounters Encounter Location Date Provider Diagnosis [facility] [place] [address] [place] [address] 12/17/2023 David Ndiaye Other viral warts B07.8 [...] right foot M20.41 and Ingrowing nail L60.[address] [address] 03/10/2024 David Ndiaye Other viral warts B07.8 [...] right foot M20.41 and Ingrowing nail L60.[address] [address] 06/02/2024 David Ndiaye Other viral warts B07.8 [...] right foot M20.41 and Ingrowing nail L60.[address] [address] 08/25/2024 Vivienne Greene Type 2 diabetes mellitus with diabetic polyneuropathy E11.42 ; Tinea unguium B35.1 ; Other hammer toe(s) (acquired), right foot M20.41 and Other hammer toe(s) (acquired), left foot M20.42 [facility] [place] [address] [place] [address] 07/03/2024 David Ndiaye Type 1 diabetes mellitus [...] Treatment Pending Test Test Name Order Date 63284-VQUPNOB NAIL, 6 OR MORE 08/25/2024 20999-CLZC SKIN LESIONS, OVER 4 08/25/20 96954-PAIV SKIN LESIONS, OVER 4 09/20/19 25684-ZGMT SKIN LESIONS, OVER 4 11/24/19 49733-UVGV SKIN LESIONS, 2 TO 4 02/02/20 Next Appt Details Provider Name:Rachele Irving cannon, 11/14/2024 01:30:00 PM, [address] [place] [address], [phone], Insurance Providers Payer Name Payer Address Payer Phone Subscriber Number Group Number Insured Name Patient Relationship to Insured Coverage Start Date Coverage End Date Medicare National [employer] [address] [place] [address] [id number] Simone Mir Self - patient is the insured Medical (General) History Medical History History ICD Code Arthritis Back,Hip,and Knee pain Broken bones CAD (Cholesterol) type I diabetes Gall bladder problems Heart disease High blood pressure Kidney disease Lung disease COPD Surgical History Surgery Date(Month/Year) Hospitalization History Reason Date(Month/Year) [facility] ER- breathing issues 08/16/24
--- OUTSIDE RECORDS SUMMARY | 2024-10-23 14:24 | XMS_ITS ---
Author Organization [facility] [place] Address [address] [place] [address] Care Team Providers Care Flag Decorator Name Role Phone Rhea Martinez Primary Care Provider David Vazquez Unavailable [phone] Allergies Allergen (clinical drug ingredient) Drug/Non Drug [...] 024 Encounters Encounter Location Date Provider Diagnosis [facility] [place] [address] [place] [address] 06/02/2024 David Ndiaye Other viral warts B0 [...] Provider Name:Rachele cannon, 11/14/2024 01:30:00 PM, [address] [facility], [place], [address], Procedure Notes * Category Sub-Category Detail Notes [...] as necessary. Patient chooses, no pharmaceutical tx (89534) Keratoma Treatment Parring or Cutting o f Benign Hyperkeratotic Lesion(s) (-56) 2-4 Lesions - The Benign hyperkeratotic lesions, as described above were pared, and/or cut utilizing a sterile 15 blade, tissue nippers, and/or dremel - 16633 Progress Notes * Arun MCKINNEYOB:1960 (63 yo M)Acc No.[id number]:06/02/2024 Progress Note Patient:?Mckinney, Simone Provider:?David Ndiaye DPM :1960???Age:63 Y???Sex:Male Carrington e:06/02/2024 Address:[address] [place] [address] Pcp:Rhea Martinez Subjective: * Chief Complaints: * [...] as necessary. Patient chooses, no pharmaceutical tx (62359).?Keratoma Treatment:?Parring or Cutting of Benign Hyperkeratotic Lesion(s)?(-56) 2-4 Lesions - The Benign hyperkeratotic lesions, as described above were pared, and/or cut utilizing a sterile 15 blade, tissue nippers, and/or dremel - 96876.? * Procedure Codes:?75589 DEBRI DE NAIL, 6 OR MORE, Modifiers: XS 01303 TRIM SKIN LESIONS, 2 TO 4, Modifiers: XS * Follow Up:?3 Months * Images: * Sign off status: Completed true * Provider:?David Ndiaye DPM Date:? 024 Generated for Cassandra alexis/Norma/Saud on:?10/23/2024 02:24 PM EST History and Physical Notes * [...]
--- OUTSIDE RECORDS SUMMARY | 2024-10-23 14:25 | XMS_ITS | Encounter Summary ---
Author Organization [facility], Address [address] [place] [address] Phone Care Team Providers Care Airborne Operations Manager Name Role Phone Rhea Martinez MD Primary Care Provider [phone] Encounter Details Date Type Department Care Team (Late st Contact Info) Description 08/11/2024 Documentation Only [facility] [address] [place] [address] Margareth Garcia [address] [place] [address] Social History Tobacco Use Types [...] Visit [facility] [address] [place] [address] Rico Lamb MD [address] [place] [address] documented as of this encounter Visit Diagnoses Not on filedocumented in this encounter Care Teams Airborne Operations Manager Relationship Specialty Start Date End Date Rhea Martinez MD [facility] [place] [address] [place] PCP - General 07/08/19 documented as of this encounter
--- OUTSIDE RECORDS SUMMARY | 2024-10-23 14:25 | XMS_ITS ---
Author Organization [facility] Address [address] [place] [address] Care Team Providers Care Conveyor Belt Operator Name Role Phone Rhea Martinez Primary Care Provider David Vazquez [phone] REASON FOR VISIT rx diab shoe Medications Medication SIG (Take, Route, Frequency, Duration) Notes Start Date End Date Status Extra Depth Diabetic Shoes with 3 Pair Custom heat-molded multi-density innersoles for 1 year Dx: Active Encounters Encounter Location Date Provider Diagnosis [address] [address] 07/03/2024 David Ndiaye Type 1 diabetes mellitus [...] 1 year Dx: Next Appt Details Provider Name:Racheel cannon, 11/14/2024 01:30:00 PM, [address] [place] [address], [phone], Progress Notes * Arun MCKINNEYOB:1960 (63 yo M)Acc No.[id number]:07/03/2024 Patient:?Simone Mckinney :1960???Age:63 Y???Sex:Male Address:[address] [place] [address], [facility] [place], [address] * Refills? Refill Extra Depth Diabetic Shoes with 3 Pair Custom heat-molded multi-density innersoles, 1 pair shoes/3 sets inserts, for 1 year, Dx:, Refills=0 * true * Date:? Generated for Cassandra alexis/Norma/eTdemetriosmitting on:?10/23/2024 02:25 PM EST
--- OUTSIDE RECORDS SUMMARY | 2024-10-23 14:25 | XMS_ITS ---
Author Organization [facility] [place] Address [address] [place] [address] Care Team Providers Care Emergency Room Orderly Name Role Phone Rhea Martinez Primary Care Provider David Vazquez Unavailable [phone] Vivienne Greene Unavailable [phone] Allergies Allergen (clinical drug ingredient) Drug/Non Drug [...] Polyneuropathy due to type 2 diabetes mellitus (621189268) Type 2 diabetes mellitus with diabetic polyneuropathy (E11.42) Active confirmed Vital Signs Height 5ft3in in 08/25/2024 Weight 120 lbs 08/25/2024 BMI 21.25 kg/m2 08/25/2024 Blood pressure systolic 125 mm Hg 08/25/20 Blood pressure diastolic 80 mm Hg 024 Procedures Procedure Date Ordered Date Performed Result Body Sit e 23113-EZPPUIN NAIL, 6 OR MORE 08/25/2024 N/A 13901-RLJZ SKIN LESIONS, OVER 4 08/25/2024 N/A Encounters Encounter Location Date Provider Diagnosis [facility] [place] [address] [place] [address] 08/25/2024 Vivienne Greene Type 2 diabetes mellitus [...] Treatment Pending Test Test Name Order Date 15483-RBKKQDF NAIL, 6 OR MORE 08/25/2024 24248-YTIZ SKIN LESIONS, OVER 4 08/25/20 24 Next Appt Details Follow Up: 3 Months, Reason: Provider Name:Rachele cannon, 11/14/2024 01:30:00 PM, [address] [place], [address], Procedure Notes * Category Sub-Category Detail Notes [...] use of a nail nipper and/or dremel-type tool grinder operator surface, to a more viable healthy nail plate [...] to maintain effectiveness in symptomatic relief - 84632 Keratoma Treatment Parring or Cutting o f [...] instrumentation by the physician of record - 66241 Progress Notes * Arun MIROB:1960 (64 yo M)Acc No.[id number]:08/25/2024 Progress Note Patient:?Wilfred MIRn Provider:?Vivienne Greene DPM :1960???Age:64 Y???Sex:Male Carrington e:08/25/2024 Address:[address] [place] [address], [facility] Pcp:Rhea Martinez Subjective: * Chief Complaints: * [...] t Surgical History * Hospitalization/Major Diagno stic Procedure:?[facility] ER- breathing issues 08/16/24 * Family History:?Mother: [...] use of a nail nipper and/or dremel-type tool grinder operator surface, to a more viable healthy nail plate [...] to maintain effectiveness in symptomatic relief - 39837.?Keratoma Treatment:?Parring or Cutting of Benign Hyperkeratotic Lesion(s)?(-57) [...] instrumentation by the physician of record - 39275.? * Procedure Codes:?31139 DEBRI DE NAIL, 6 OR MORE, Modifiers: XS 37437 TRIM SKIN LESIONS, OVER 4, Modifiers: XS [...] DPM Date:?10/26/2023 Generated for Cassandra alexis/Norma/Juan Mitting on:?10/23/2024 02:24 PM EST History and Physical [...]
--- OUTSIDE RECORDS SUMMARY | 2024-10-23 14:25 | XMS_ITS | Clinical Summary ---
Author Organization [facility], Address [address] [place] [address] [place] [address] Phone Care Team Providers Care Medical Staffing Coordinator Name Role Phone Rhea Martinez MD Primary Care Provider [phone] Allergies Active Allergy Reactions Criticality Noted Date [...] Only [facility] [place], [address] [place] [address] Margareth Garcia from Last 3 Months [...] Visit [facility] [address] [place] [address] Rico Lamb MD [address] [place] [address] [place] [address] Health Maintenance Due Date Last Done Comments [...] PM EDT) Hemoglobin A1C 7.4(H) (4.0-5.6) % [facility] Comment: MONITORING: In known diabetic patients, hemoglobin A1c targets should be discussed with health care provider. DIAGNOSTIC USE: ??The [place] Diabetes Association (ADA) and the World Health [...] Supplement 1 Testing performed or reported by [facility], a Service of [facility], [address] [place] [address] Curtis Marks MD, Lead Miner Blasting [facility]# [id number] Blood (Blood, Venous) 07/05/2023 12:15 PM EDT 07/05/2023 12:26 PM EDT us Rico Lamb MD LAB BLOOD ORDERABLES Final Res ult [facility] from Last 3 Months or Most Recently Relevant to Health Maintenance Insurance MEDICARE [place]ICAID [place] Care Teams Medical Staffing Coordinator Relationship Specialty Start Date End Date Rhea Martinez MD [facility] [place] [address] [place] PCP - General 07/08/19
--- OUTSIDE RECORDS SUMMARY | 2024-10-23 14:25 | XMS_ITS | Encounter Summary ---
Author Organization [facility], Address [address] [place] [address] Phone Care Team Providers Care Fence Maker Name Role Phone Rhea Martinez MD Primary Care Provider [phone] Encounter Details Date Type Department Care Team (Late st Contact Info) Description 10/27/2021 Documentation Only [facility], [address] [place] [address] Rico Lamb MD [address] [place] [address] [place] [address] Social History Tobacco Use Types [...] Visit [facility] [address] [place] [address] Rico Lamb MD [address] [place] [address] [place] [address] documented as of this encounter Visit Diagnoses Not on filedocumented in this encounter Care Teams Fence Maker Relationship Specialty Start Date End Date Rhea Martinez MD [facility] [place] [address] [place] PCP - General 07/08/19 documented as of this encounter
--- OUTSIDE RECORDS SUMMARY | 2024-10-23 14:25 | XMS_ITS | Encounter Summary ---
Author Organization [facility], Address [address] [place] [address] Phone Care Team Providers Care Hat Measurer Name Role Phone Rhea Martinez MD Primary Care Provider [phone] Encounter Details Date Type Department Care Team (Late st Contact Info) Description 07/06/2022 Documentation Only [facility], [address] [place] [address] Rico Lamb MD [address] [place] [address] [place] [address] Social History Tobacco Use Types [...] Visit [facility] [address] [place] [address] Rico Lamb MD [address] [place] [address] [place] [address] documented as of this encounter Visit Diagnoses Not on filedocumented in this encounter Care Teams Hat Measurer Relationship Specialty Start Date End Date Rhea Martinez MD [facility] [place] [address] [place] PCP - General 07/08/19 documented as of this encounter
--- OUTSIDE RECORDS SUMMARY | 2024-10-23 14:25 | XMS_ITS | Clinical Summary ---
Author Organization [employer] Address [address] [facility] [address] [place] [address] Care Team Providers Care Pulling Unit Operator Name Role Phone Unavailable Primary Care Provider [...] Recently Relevant to Health Maintenance Insurance [facility]ICARE [facility] MEDICAID STAND ADULT
== END 2024-10-23 13:53 | disposition home or self-care (01) ==
PROVIDERS: PCP Internal Medicine; Visit Provider Internal Medicine
DX: J43.9 Emphysema, unspecified (principal); J90 Pleural effusion, not elsewhere classified
CPT/HCPCS: 99213

== ENCOUNTER → 2024-10-23 13:27 | Outpatient (BNVA) | payer MEDICARE, MEDICAID, SELFPAY | PROVIDERS: PCP Internal Medicine; Visit Provider Internal Medicine | DX: J43.9 Emphysema, unspecified (principal); J90 Pleural effusion, not elsewhere classified | CPT/HCPCS: 99212 ==

== ENCOUNTER 2025-01-13 13:52 | Outpatient (AMB) | payer MEDICARE, MEDICAID, SELFPAY ==
[2025-01-13 13:58] VITALS: BP 118/72; PULSE 69; O2SAT 96; BMI 19.6
--- NOTE | 2025-01-13 13:58 | MHC.PC.OV ---
Vital Signs 01/13/25 13:58 Height 5 ft 2 in Weight 107 lb BMI 19.6 BP 118/72 Blood Pressure Location Lt brachial Position Sitting Pulse 69 Pulse Source Pulse Oximeter Pulse Oximetry (%) 96 Oxygen Delivery Method Room Air Intake Visit Reasons: CAD, COPD, HTN, Cholesterol Allergies adalimumab [From Humira] Adverse Reaction (Verified 01/13/25 13:59) sleepy pregabalin [From Lyrica] Adverse Reaction (Verified 01/13/25 13:59) Dizzyness Tobacco use date assessed: 01/13/25 Fall risk assessment: No Falls in past year Last assessed Fall Risk: 01/13/25 Dental Screening Dental Screen Date: 01/13/25 Did you have a dental visit in the last 12 months?: Yes Did you have a dental problem in the last 6 months where you did not have access to dental care?: No Was dental information given to patient?: Patient has dentist HPI CAD, COPD, HTN, Cholesterol HPI Details ortho doing a procedure R hip this week- ortho. [facility] Medical History Urinary frequency COPD exacerbation Bloating Hypoglycemia Chronic constipation Tinea pedis, left Hx of fracture of femur Eczema Cholelithiasis Carpal tunnel syndrome Ankle fracture Diabetes mellitus type 1 Chronic kidney disease (CKD) stage G2/A3, mildly decreased glomerular filtration rate (GFR) between 60-89 mL/min/1.73 square meter and albuminuria creatinine ratio greater than 300 mg/g Hypercholesterolemia Diabetic neuropathy COPD (chronic obstructive pulmonary disease) Coronary artery disease Hypertension Surgical History Hx of colonoscopy Hx of eye surgery Hx of appendectomy H/O umbilical hernia repair History of cholecystectomy History of elbow surgery History of carpal tunnel release Family History Father Hypertension Stroke CVD (cerebrovascular disease) Mother Hypertension CVD (cerebrovascular disease) Diabetes Sister HX: breast cancer Paternal Grandfather Colon cancer Social History Housing: House Alcohol intake: former Patient Tobacco Use Status: Former Tobacco user Tobacco use type: Cigarette Years Smoked: 2002 quit 08/12 e-Cigarette/Vaping Use: Never Used Second Hand Smoke Exposure: No Substance Use Type: Marijuana service: No Current occupational status: disabled Cognitive needs: No Hearing needs: No Vision needs: Yes Questionnaire PHQ-9 Over the last 2 weeks, how often have you been bothered by any of the following problems? 1. Little interest or pleasure in doing things: several days 2. Feeling down, depressed, or hopeless: not at all 3. Trouble falling or staying asleep, or sleeping too much: several days 4. Feeling tired or having little energy: several days 5. Poor appetite or overeating: several days 6. Feeling bad about yourself - or that you are a failure or have let yourself or your family down: not at all 7. Trouble concentrating on things, such as reading the newspaper or watching television: not at all 8. Moving or speaking so slowly that other people could have noticed. Or the opposite - being so fidgety or restless that you have been moving around a lot more than usual: not at all 9. Thoughts that you would be better off or of hurting yourself in some way: not at all Total score: 4 Depression Screening Interpretation: Positive Depression Screening Done: Yes Source: Developed by Drs. Dylan Mendez, Arabella Griffin, Mick Valero and colleagues, with an educational teto from [employer]. Thrive Questionnaire Date Thrive assessed: 10/16/24 I am a: Patient What is your living situation today?: I have a steady place to live Within the past 12 months, did the food you bought not last and you didn't have the money to get more?: Never true Within the past 12 months, did you worry whether your food would run out before you got money to buy more?: Never true Do you have trouble paying for medicines?: No Do you have trouble getting transportation to medical appointments?: No Do you have trouble paying your heating and electricity bill?: No Do you have trouble taking care of your child, family member or friend?: No Do you have trouble with day-to-day activities such as bathing, preparing meals, shopping, managing finances, etc.?: No Are you currently unemployed and looking for a job?: Yes Are you interested in more education?: No Please select the resources that you would like help with: None Currently or been in a relationship where the following occur: No concerns reported THRIVE Score: 0 AUDIT C Alcohol Use Questionnaire (AUDIT-C) 1. How often do you have a drink containing alcohol?: Never Total Score: 0 BARRY-7 AMB Questionnaire BARRY-7 Date BARRY - 7 assessed: 10/16/24 Feeling nervous, anxious, or on edge: 0 = Not at all Not being able to stop or control worryin = Not at all Worrying too much about different things: 0 = Not at all Trouble relaxin = Not at all Being so restless that it is hard to sit still: 0 = Not at all Becoming easily annoyed or irritable: 0 = Not at all Feeling afraid as if something awful might happen: 0 = Not at all Total BARRY-7 score (0-4 normal; 5-9 mild; 10-14 moderate; 15-21 severe): 0 Source: Developed by Drs. Dylan Mendez, Arabella Griffin, Mick Valero and colleagues, with an educational teto from [employer]. Physical exam (Primary Care) Vital Signs: Last Vital Signs Pulse 69 01/13/25 13:58 BP 118/72 01/13/25 13:58 Pulse Ox 96 01/13/25 13:58 Oxygen Delivery Method Room Air 01/13/25 13:58 BMI result Body Mass Index 19.6 Tobacco/Smoking Status: Tobacco use Status Tobacco use date assessed 01/13/25 01/13/25 14:00 Patient Tobacco Use Status Former Tobacco user 01/13/25 14:00 Tobacco use type Cigarette 01/13/25 14:00 e-Cigarette/Vaping Use Never Used 01/13/25 14:00 PHQ-9: PHQ-9 Score PHQ-9: Total score 4 01/13/25 14:24 Depression Screening Interpretation: Positive Thrive Assessment: Date of Thrive Assessment Date Thrive assessed 10/16/24 01/13/25 14:00 Currently or been in a relationship where the following occur: No concerns reported Const General: alert; No acute distress Eyes Conjunctivae: conjunctivae normal Resp Auscultation: clear to auscultation bilaterally Cardio Rate: regular rate Rhythm: regular rhythm GI Inspection: Yes normal to inspection Extrem General: Yes normal to inspection and No edema Results AMB Hemoglobin A1c AMB Hemoglobin A1c 7.6 % Last Edit by Kathie M Maitin, QUALITY DIRECTOR on 01/13/25 14:21 Immunizations pneumoc 20-susannah conj-dip cr(PF) 0.5 mL IM syringe Performing Provider: Rhea Martinez MD [facility] Administered by: Kathie Licea CMA on 01/13/25 14:35 Dose Route Admin Location Dispensed Lot Number Expiration Date [place] Wearing Apparel Folder 0.5 mL IM Left Deltoid 0.5 mL [id number] 11/01/25 [employer] VIS Given Date VIS Provided VIS Publication Date 01/13/25 Single Vaccine 21 Eligibility Eligibility Date Funding Source Not [facility] Eligible 01/13/25 Private Results Reviewed Results Reviewed: Laboratory Last Values Hgb A1c (Clinic) 7.6 % (4.0-6.0) H 01/13/25 14:01 Coding Level of Care Code Est Pt Level 4 (20168) Complex EM visit Add On G2211 Diagnoses Type 1 diabetes mellitus with diabetic polyneuropathy E10.42 Diabetes mellitus complication detail: with polyneuropathy Diabetes mellitus complication status: with neurologic complications Chronic kidney disease (CKD) stage G2/A3, mildly decreased glomerular filtration rate (GFR) between 60-89 mL/min/1.73 square meter and albuminuria creatinine ratio greater than 300 mg/g N18.2 Hypercholesterolemia E78.00 Pulmonary emphysema, unspecified emphysema type J43.9 COPD type: emphysema Emphysema type: unspecified Coronary artery disease involving [place] coronary artery of [place] heart without angina pectoris I25.10 Associated angina: without angina Coronary Disease-Associated Artery/Lesion type: [place] artery [place] vs. transplanted heart: [place] heart Essential hypertension I10 Hypertension type: essential hypertension Benign prostatic hyperplasia with weak urinary stream N40.1; R39.12 Lower urinary tract symptom detail: weak urinary stream Lower urinary tract symptom presence: symptoms present Pleural effusion J90 Diabetic polyneuropathy associated with type 1 diabetes mellitus E10.42 Diabetes mellitus complication detail: diabetic polyneuropathy Diabetes mellitus type: type 1 COVID-19 virus infection U07.1 Assessment & Plan Assessment & Plan (1) Diabetes mellitus type 1: Comment: Insulin Pump Dr. Rae Camargo Code(s): E10.9 - Type 1 diabetes mellitus without complications Category: Medical Qualifiers: Diabetes mellitus complication detail: with polyneuropathy Diabetes mellitus complication status: with neurologic complications Qualified Code(s): E10.42 - Type 1 diabetes mellitus with diabetic polyneuropathy Plan: Patient follows up with endocrinology on the insulin pump. Decrease the amount of carbohydrate intake, pasta, bread, rice and potatoes are all sugar and that is aside from all the sweet stuff, remember that fruits are good but they are Sweet also. (2) Chronic kidney disease (CKD) stage G2/A3, mildly decreased glomerular filtration rate (GFR) between 60-89 mL/min/1.73 square meter and albuminuria creatinine ratio greater than 300 mg/g: Code(s): N18.2 - Chronic kidney disease, stage 2 (mild) Category: Medical Plan: Keep well hydrated as per Nephrology placed on potassium citrate 10 mEq 3 times a day for nephrolithiasis. Continuing with controlling blood pressure, cholesterol and diabetes. (3) Hypercholesterolemia: Code(s): E78.00 - Pure hypercholesterolemia, unspecified Category: Medical Plan: Avoid fried foods, chicken skin, eggs, butter margarine, pastries and meat. Be it pork or beef they have a lot of cholesterol LDL goal of less than 70 and triglyceride of less than 150 on rosuvastatin 40 mg once a day (4) COPD (chronic obstructive pulmonary disease): Comment: HE IS A KNOWN CASE OF SEVERE COPD, REMAINS STABLE, BUT DOES COMPLAIN OF ONGOING COUGH. AND MILD DYSPNEA ON WALKING. Code(s): J44.9 - Chronic obstructive pulmonary disease, unspecified Category: Medical Qualifiers: COPD type: emphysema Emphysema type: unspecified Qualified Code(s): J43.9 - Emphysema, unspecified Plan: Patient follows up with Pulmonary. Reassurance with regards to the pleural effusion. Continuing with the inhalers (5) Coronary artery disease: Code(s): I25.10 - Atherosclerotic heart disease of [place] coronary artery without angina pectoris Category: Medical Qualifiers: Associated angina: without angina Coronary Disease-Associated Artery/Lesion type: [place] artery [place] vs. transplanted heart: [place] heart Qualified Code(s): I25.10 - Atherosclerotic heart disease of [place] coronary artery without angina pectoris Plan: Control the cholesterol, weight, blood pressure, diabetes on aspirin 81 mg once a day (6) Hypertension: Code(s): I10 - Essential (primary) hypertension Category: Medical Qualifiers: Hypertension type: essential hypertension Qualified Code(s): I10 - Essential (primary) hypertension Plan: Continue with blood pressure medication. Decrease salt intake and exercise patient takes carvedilol lisinopril (7) BPH (benign prostatic hyperplasia): Code(s): N40.0 - Benign prostatic hyperplasia without lower urinary tract symptoms Category: Medical Qualifiers: Lower urinary tract symptom detail: weak urinary stream Lower urinary tract symptom presence: symptoms present Qualified Code(s): N40.1 - Benign prostatic hyperplasia with lower urinary tract symptoms; R39.12 - Poor urinary stream Plan: Continue with tamsulosin (8) Pleural effusion: Comment: HE HAS SMALL PLEURAL EFFUSION IN THE RIGHT PLEURAL CAVITY. I CAN SEE SIMILAR FINDING IN A CHEST X-RAY PERFORMED IN 2022, THOUGH THE CURRENT FINDING IS SOMEWHAT MORE PROMINENT. I THINK THIS PLEURAL EFFUSION OR PLEURAL SCARRING IS FROM AN OLD INFECTION OR INJURY. THE REPEAT CHEST X-RAY AGAIN SHOWS SOME BLUNTING OF THE RIGHT COSTOPHRENIC ANGLE AND NOW IT IS THOUGHT THAT THIS IS A CHRONIC PLEURAL THICKENING, IT DOES NOT REPRESENT ANY FREE FLUID. Reassurance from pulmonary 2024 Code(s): J90 - Pleural effusion, not elsewhere classified Category: Medical Plan: Reassurance from pulmonary (9) Diabetic neuropathy: Code(s): E11.40 - Type 2 diabetes mellitus with diabetic neuropathy, unspecified Category: Medical Qualifiers: Diabetes mellitus complication detail: diabetic polyneuropathy Diabetes mellitus type: type 1 Qualified Code(s): E10.42 - Type 1 diabetes mellitus with diabetic polyneuropathy Plan: Narcotic pain meds: Is being prescribed with the understanding that these medications are potentially addictive and should be used only when absolutely necessary and must always be secured. Any remaining pills should be safely disposed off appropriately. Patient is advised that narcotics can impaired judgment and one should not drive or operate heavy machinery while taking these medications. Never share these medications with anybody and do not leave them unattended. They will not be replaced under any circumstances. (10) COVID-19 virus infection: Comment: January 04, 2025 Code(s): U07.1 - COVID-19 Category: Medical Plan: resolved Plan History of Present Illness The patient is a 64-year-old male presenting with follow-up for multiple chronic conditions and recent recovery from a COVID-19 infection. The patient noted a 12-pound weight loss and reports management of COPD, using Brio, Spiriva, and Ventolin inhalers, and nebulizer treatment. He has recent episodes of hip pain, for which he awaits orthopedic evaluation. Past nephrology consultations revealed management of stage 3 chronic kidney disease with potassium citrate, and his nephrolithiasis history prompted recommendations for adequate hydration. A recent blood test indicated mild anemia and satisfactory renal function. A referral to endocrinology for diabetes management discussed an insulin pump. He reported a recent history of diarrhea and fatigue, following a COVID-19 infection, but he currently maintains a good appetite. He is compliant with pain management using hydrocodone and has an orthopedics appointment scheduled for further assessment. The patient has received recent vaccinations for shingles and is to receive a pneumonia vaccination due to his age. Health Maintenance - Pneumonia vaccination discussed and scheduled as per age-appropriate schedule. - Adequate hydration emphasized for nephrolithiasis management. - Monitoring and managing cholesterol, with LDL goal of less than 70. - Maintenance of balanced glycemic control, A1c at 7.6%. - Pain management with hydrocodone for right hip pain. Social History - Exercise: Patient reports difficulty with mobility, affecting exercise routine. - Nutritional intake: Maintains hydrating as advised, experienced temporary appetite decrease [id number]. Review of Systems - Respiratory: Reports ongoing cough; Denies shortness of breath. - Gastrointestinal: Reports recent diarrhea resolved. - General: Reports fatigue [id number]; Denies nausea and vomiting. - Musculoskeletal: Reports right hip pain, difficulty with stairs. Physical Exam Results - Labs: Mild anemia reported on last blood test, with good electrolytes and renal function (Creatinine 1.4, GFR 51). - Tests: Hyperlipidemia managed, LDL of 58; recent A1c of 7.6%. Plan The patient's treatment will involve continuation of COPD management regimens and potassium citrate for nephrolithiasis. The plan includes maintaining hydration, controlling lipids, pain management for hip discomfort, and arranging scheduled vaccination. Monitoring of blood glucose and A1c continues, addressing fatigue from recent COVID-19 recovery. An orthopedic assessment is awaited for hip pain evaluation, following previous respiration issues reassurance. The patient is informed about adherence to recommended treatments and medication regimens. Patient was informed and verbally consented to the use of an ambient scribe for clinic note documentation during this visit. Discussion Notes I discussed with the patient the importance of maintaining regular COPD treatments and adequate hydration to manage his chronic kidney disease and prevent further nephrolithiasis. All treatment decisions, including continuing rosuvastatin for cholesterol management, hydrocodone for pain relief, and upcoming vaccination, were conveyed with the associated benefits and potential risks. The importance of compliance with diabetic management was emphasized, explaining how adherence could improve his glycemic control further. The patient acknowledged the scheduled orthopedic follow-up for his hip pain, and reassurance was provided regarding the pleural effusion. Future appointments for updated blood work will be arranged to facilitate ongoing assessments. Patient Instructions - Maintain COPD regimen with your inhalers and medication. - Drink one gallon of fluids daily to prevent kidney stones. - Continue current pain management with hydrocodone as prescribed. - Attend your scheduled orthopedic appointment for further hip pain assessment. - Follow up with blood glucose levels and maintain diabetic management. - Receive pneumonia vaccination as scheduled. - Monitor for persistent fatigue and continue rest as needed. Orders: Orders AMB Hemoglobin A1c Today Z13.9 - Encounter for screening, unspecified Medications: Refilled hydrocodone-acetaminophen 5-325 mg pain med temporarily to help with pain 09/2024 1 tab PO BID 30 days PRN 60 tabs 0RF pain E10.42 - Type 1 diabetes mellitus with diabetic polyneuropathy
--- OUTSIDE RECORDS SUMMARY | 2025-01-13 15:04 | XMS_ITS | Clinical Summary ---
Author Organization [facility], Address [address] [place] [address] [place] [address] Phone Care Team Providers Care Pneumatic Tester Name Role Phone Rhea Martinez MD Primary Care Provider [phone] Allergies Active Allergy Reactions Criticality Noted Date [...] 360 tablet 3 4 05/19/20 25 Active ergocalciferol (Drisdol) 1.25 MG (35046 UT) capsule Take 1 capsule (50,000 Units total) by mouth 1 (one) time per week for 8 doses 8 capsule 5 12/31/19 25 Active Problems Problem Noted Date Diagnosed Date [...] Encounters Date Type Department Care Team Description 11/10/2024 1:45 PM EDT Office Visit [facility], [address] [place] [address] Rico Lamb MD Chronic kidney disease stage 3 (HCC) (Primary Dx) from Last 3 Months Immunizations Immunization Administration Dates Next Due Influenza Split High [...] Care Team (Late st Contact Info) Description 11/11/2025 1:45 PM EDT Office Visit [facility], [address] [place] [address] Rico Lamb MD [address] [place] [address] Health Maintenance Due Date Last Done Comments Pneumococcal Vaccine: 50+ Years (1 of 2 - PCV) 1978 Colorectal Cancer Screening: Annual FOBT 2008 Colorectal Cancer Screening: Colonoscopy 2008 Colorectal Cancer Screening: Sigmoidoscopy 2008 Diabetes: Ophthalmology Exam 11/24/2019 Diabetes: Pedal Pulse Checked 11/24/2019 Diabetes: Sensory Foot Exam 11/24/2019 Diabetes: Visual Foot Exam 11/24/2019 Diabetes: Hemoglobin A1C 07/03/2024 024, 07/05/2023, 07/04/2022, Additional history exists Influenza Vaccine (Season Ended) 2025 06/27/2022, 06/20/2021, 06/09/2019, Additional history exists Hepatitis B Vaccine Aged Out No longe r eligible based on patient's age to complete this topic Procedures Procedure Name Priority Date/Time Associated Diagnosis Comments PTH, INTACT Routine 11/05/2024 1:15 PM EST FERRITIN Routine 11/05/2024 1:15 PM EST MAGNESIUM Routine 11/05/2024 1:15 PM EST PHOSPHATE ( PHOSPHORUS) Routine 11/05/2024 1:15 PM EST URIC ACID Routine 11/05/2024 1:15 PM EST VITAMIN D 25 HYDROXY Routine 11/05/2024 1:15 PM EST URINE ALBUMIN / CREATININE RATIO Routine 11/05/2024 1:15 PM EST IRON PANEL (FE, TIBC, TSAT) Routine 11/05/2024 1:15 PM EST URINALYSIS WITH MICROSCOPIC Routine 11/05/2024 1:15 PM EST COMPREHENSIVE METABOLIC PANEL Routine 11/05/2024 1:15 PM EST CBC AND DIFFERENTIAL Routine 11/05/2024 1:15 PM EST MICROSCOPIC EXAMINATION - DO NOT USE Routine 11/05/2024 1:15 PM EST HEMOGLOBIN A1C Routine 07/05/2023 12:15 PM EDT Chronic kidney disease stage 3 (HCC) from Last 3 Months or Most Recently Relevant to Health Maintenance Results * Microscopic Examination (11/05/2024 1:15 PM EST) WBC, Urine None seen 0 - 5 /hpf [facility] RBC, Urine 0-2 0 - 2 /hpf [facility] Squamous Epithelial, Urine None seen 0 - 10 /hpf [facility] Casts None seen None seen /lpf [facility] Bacteria, Urine None seen None seen/Few [facility] 11/05/2024 1:15 PM EST 11/05/2024 Rico Lamb MD LAB MICROBIOLOGY - GENERAL ORD ERABLES Final Result [facility] [address] [place] [address] * (ABNORMAL) Iron Panel (Fe, TIBC, TSAT) (11/05/2024 1:15 PM EST) TIBC 231(L) 250 - 450 ug/dL [facility] UIBC 152 111 - 343 ug/dL [facility] Iron 79 38 - 169 ug/dL [facility] Iron Saturation (TSat) 34 15 - 55 % [facility] 11/05/2024 1:15 PM EST 11/05/2024 Rico Lamb MD LAB BLOOD ORDERABLES Final Res ult [facility] [address] [place] [address] * (ABNORMAL) Urine Albumin / Creatinine Ratio (11/05/2024 1:15 PM EST) Creatinine, Ur 73.8 Not Estab. mg/dL [facility] Albumin, Urine 177.3 Not Estab. ug/mL [facility] Albumin/Creatin ine Ratio 240(H) 0 - 29 mg/g creat [facility] Comment: ? Normal: ?0 - ??29 ? Moderately increased: 30 - 300 ? Severely increased: ? >300 11/05/2024 1:15 PM EST 11/05/2024 us Rico Lamb MD LAB URINE ORDERABLES Final Res ult [facility] [address] [place] [address] * (ABNORMAL) Vitamin D 25 Hydroxy (11/05/2024 1:15 PM EST) Vitamin D, 25-OH, Total 20.6(L) 30.0 - 100.0 ng/mL [facility] Comment: Vitamin D deficiency has been defined by the [place] of Medicine and an Endocrine Society practice guideline as a level of serum 25-OH vitamin D less than 20 ng/mL (1,2). The Endocrine Society went on to further define vitamin D insufficiency as a level between 21 and 29 ng/mL (2). 1. IOM ([place] of Medicine). 2010. Dietary reference ?? intakes for calcium and D. [place]: The ?? National [employer]. 2. Elizabeth ROCK, Myrna PERRY, Nayeli CHONG, et al. ?? Evaluation, treatment, and prevention of vitamin D ?? deficiency: an Endocrine Society clinical practice ?? guideline. JCEM. 2010; 96(7):1911-30. 11/05/2024 1:15 PM EST 11/05/2024 Rico Lamb MD LAB BLOOD ORDERABLES Final Res ult [facility] [address] [place] [address] * (ABNORMAL) Urinalysis with microscopic (11/05/2024 1:15 PM EST) Specific Maurice, Urine 1.017 1.005 - 1.030 [facility] [phone] pH Urine 6.5 5.0 - 7.5 [facility] [phone] Color, Urine Yellow Yellow [facility] Appearance Urine Clear Clear [facility] WBC Esterase Urine Negative Negative [facility] [phone] Protein, Ur 2+(A) Negative/Tra ce [facility] Glucose, Ur 1+(A) Negative [facility] [phone] Ketones, Urine Negative Negative [facility] [phone] Blood Urine Negative Negative [facility] [phone] Bilirubin Urine Negative Negative [facility] [phone] Urobilinogen Urine 1.0 0.2 - 1.0 mg/dL [facility] [phone] Nitrite, Urine Negative Negative [facility] [phone] Microscopic Examination See below: [facility] [phone] Comment:Microscopic was lola cated and was performed. 11/05/2024 1:15 PM EST 11/05/2024 us Rico Lamb MD LAB URINE ORDERABLES Final Res ult [facility] [address] [place] [address] * CBC and Differential (11/05/2024 1:15 PM EST) WBC 7.0 3.4 - 10.8 x10E3/uL [facility] RBC 4.19 4.14 - 5.80 x10E6/uL [facility] Hemoglobin 13.1 13.0 - 17.7 g/dL [facility] Hematocrit 39.5 37.5 - 51.0 % [facility] MCV 94 79 - 97 fL [facility] MCH 31.3 26.6 - 33.0 pg [facility] MCHC 33.2 31.5 - 35.7 g/dL [facility] RDW 13.0 11.6 - 15.4 % [facility] Platelets 248 150 - 450 x10E3/uL [facility] Neutrophils Relative 54 Not Estab. % [facility] Lymphocytes Relative 32 Not Estab. % [facility] Monocytes 10 Not Estab. % [facility] Eosinophils Relative 3 Not Estab. % [facility] Basophils Relative 1 Not Estab. % [facility] Neutrophils Absolute 3.8 1.4 - 7.0 x10E3/uL [facility] Lymphocytes Absolute 2.3 0.7 - 3.1 x10E3/uL [facility] Monocytes Absolute 0.7 0.1 - 0.9 x10E3/uL [facility] Eosinophils Absolute 0.2 0.0 - 0.4 x10E3/uL [facility] Basophils Absolute 0.0 0.0 - 0.2 x10E3/uL [facility] Immature Granulocytes 0 Not Estab. % [facility] Immature Grans (Absolute) 0.0 0.0 - 0.1 x10E3/uL [facility] 11/05/2024 1:15 PM EST 11/05/2024 Rico Lamb MD LAB BLOOD ORDERABLES Final Res ult Performing Organization Address City/[facility]/ZIP Co de Phone Number [facility] [address] [place] [address] * (ABNORMAL) Uric Acid (11/05/2024 1:15 PM EST) Uric Acid 3.0(L) 3.8 - 8.4 mg/dL [facility] Comment:Therapeutic target f or gout patients: <6.0 11/05/2024 1:15 PM EST 11/05/2024 Rico Lamb MD LAB BLOOD ORDERABLES Final Res ult Performing Organization Address City/[facility]/ZIP Co de Phone Number [facility] [address] [place] [address] * Phosphorus (11/05/2024 1:15 PM EST) Phosphorus 3.4 2.8 - 4.1 mg/dL [facility] 11/05/2024 1:15 PM EST 11/05/2024 Rico Lamb MD LAB BLOOD ORDERABLES Final Res ult [facility] [address] [place] [address] * PTH, Intact (11/05/2024 1:15 PM EST) PTH 28 15 - 65 pg/mL [facility] 11/05/2024 1:15 PM EST 11/05/2024 Rico Lamb MD LAB BLOOD ORDERABLES Final Res ult Performing Organization Address City/[facility]/ZIP Co de Phone Number [facility] [address] [place] [address] * Magnesium (11/05/2024 1:15 PM EST) Magnesium 2.2 1.6 - 2.3 mg/dL [facility] 11/05/2024 1:15 PM EST 11/05/2024 Rico Lamb MD LAB BLOOD ORDERABLES Final Res ult [facility] [address] [place] [address] * Ferritin (11/05/2024 1:15 PM EST) Ferritin 204 30 - 400 ng/mL [facility] 11/05/2024 1:15 PM EST 11/05/2024 us Rico Lamb MD LAB BLOOD ORDERABLES Final Res ult [facility] [address] [place] [address] * (ABNORMAL) Comprehensive Metabolic Panel (11/05/2024 1:15 PM EST) Glucose 136(H) 70 - 99 mg/dL [facility] BUN 23 8 - 27 mg/dL [facility] Creatinine 1.11 0.76 - 1.27 mg/dL [facility] eGFR CKD-EPI CR 2020 74 >59 mL/min/1.7 3 [facility] BUN/Creatinine Ratio 21 10 - 24 [facility] Sodium 139 134 - 144 mmol/L [facility] Potassium 4.3 3.5 - 5.2 mmol/L [facility] Chloride 100 96 - 106 mmol/L [facility] Bicarbonate (CO2) 26 20 - 29 mmol/L [facility] Calcium 8.9 8.6 - 10.2 mg/dL [facility] Total Protein 6.6 6.0 - 8.5 g/dL [facility] Albumin 4.2 3.9 - 4.9 g/dL [facility] Globulin 2.4 1.5 - 4.5 g/dL [facility] Total Bilirubin <0.2 0.0 - 1.2 mg/dL [facility] Alkaline Phosphatase 96 44 - 121 IU/L [facility] AST (SGOT) 20 0 - 40 IU/L [facility] ALT (SGPT) 16 0 - 44 IU/L [facility] 11/05/2024 1:15 PM EST 11/05/2024 us Rico Lamb MD LAB BLOOD ORDERABLES Final Res ult [facility] [address] [place] [address] * (ABNORMAL) Hemoglobin A1c (07/05/2023 12:15 PM EDT) Hemoglobin A1C 7.4(H) (4.0-5.6) % [facility] Comment: MONITORING: In known diabetic patients, hemoglobin A1c targets should be discussed with health care provider. DIAGNOSTIC USE: ??The [place] Diabetes Association (ADA) and the World Health [...] Supplement 1 Testing performed or reported by [facility], a Service of [facility], [address] [place] [address] Curtis Marks MD, Abalone Processor [facility]# [id number] Blood (Blood, Venous) 07/05/2023 12:15 PM EDT 07/05/2023 12:26 PM EDT us Rico Lamb MD LAB BLOOD ORDERABLES Final Res ult [facility] from Last 3 Months or Most Recently Relevant to Health Maintenance Insurance Medicare Medicaid [place] Care Teams Pneumatic Tester Relationship Specialty Start Date End Date Rhea Martinez MD [address] [place] PCP - General 07/08/19
--- OUTSIDE RECORDS SUMMARY | 2025-01-13 15:04 | XMS_ITS | Encounter Summary ---
Author Organization [facility] [place], Address [address] [place] [address] Phone Care Team Providers Care Rn X Ray Name Role Phone Rhea Martinez MD Primary Care Provider Encounter Details Date Type Department Care Team (Late st Contact Info) Description 08/11/2024 Documentation Only [facility] [address] [place] [address] Margareth Garcia [address] [place] [address] Social History Tobacco Use Types [...] Visit [facility] [address] [place] [address] Rico Lamb MD [address] [place] [address] documented as of this encounter Visit Diagnoses Not on filedocumented in this encounter Care Teams Rn X Ray Relationship Specialty Start Date End Date Rhea Martinez MD [facility] [address] KARINA FULLER PCP - General 07/08/19 documented as of this encounter
--- OUTSIDE RECORDS SUMMARY | 2025-01-13 15:04 | XMS_ITS | Encounter Summary ---
Author Organization [facility] [place], Address [address] [place] [address] Phone Care Team Providers Care Dairy Products Maker Name Role Phone Rhea Martinez MD Primary Care Provider [phone] Encounter Details Date Type Department Care Team (Late st Contact Info) Description 07/06/2022 Documentation Only [facility], [address] [place] [address] Rico Lamb MD [address] [place] [address] [place] [address] Social History Tobacco Use Types [...] Visit [facility] [address] [place] [address] Rico Lamb MD [address] [place] [address] [place] [address] documented as of this encounter Visit Diagnoses Not on filedocumented in this encounter Care Teams Dairy Products Maker Relationship Specialty Start Date End Date Rhea Martinez MD [facility] [address] [place] PCP - General 07/08/19 documented as of this encounter
--- OUTSIDE RECORDS SUMMARY | 2025-01-13 15:04 | XMS_ITS ---
Author Organization [facility] [place] Address [address] [place] [address] Care Team Providers Care Retail Greeting Card Merchandiser Name Role Phone Rhea Martinez Primary Care Provider Rachele Vaca Unavailable [phone] Allergies Allergen (clinical drug ingredient) Drug/Non Drug Allergy documented on EMR Reaction Allergy Type Onset Date Status acetaminophen Tylenol Unknown Drug Allergy Act john Cortisone raises BP Drug Allergy Active REASON FOR VISIT At Risk Footcare Medications Medication SIG (Take, Route, Frequency, Duration) Notes Start Date End Date Status Carvedilol 25 MG 1 tablet with food O ral Twice a day for 30 days Active Extra Depth Diabetic Shoes with 3 Pair Custom heat-molded multi-density innersoles for 1 year Dx: 09/20/2022 Active Rosuvastatin Calcium Active Spiriva HandiHaler A ctive Lisinopril Active Insulin Active Gabapentin Active carBAMazepine Active Breo Ellipta Active Bethanechol Chloride Active albuterol Active Extra Depth Diabetic Shoes with 3 Pair Custom heat-molded multi-density innersoles for 1 year Dx: Active Potassium Active Social History Tobacco Use: Social History Observation Description Date Details (start date - stop date) Never Smoker NA - NA Alcohol Screen Question Answer Notes Did you have a drink containing alcohol in the p ast year? No Points 0 Interpretation Negative Tobacco use other than smoking: Question Answer Notes Are you an other tobacco user? No Tobacco Control (Standard) Question Answer Notes Tobacco use: Nonsmoker Vital Signs Height 5ft3in in 11/14/2024 Weight 115 lbs 11/14/2024 BMI 20.37 kg/m2 11/14/2024 Blood pressure systolic 123 mm Hg 11/15/19 25 Blood pressure diastolic 81 mm Hg 025 Encounters Encounter Location Date Provider Diagnosis [facility] [address] [address] 11/14/2024 Rachele Uribe Type 2 diabetes mellitus with diabetic polyneuropathy E11.42 and Tinea unguium B35.1 Assessments Encounter Date Diagnosis (ICD Code) Assessment Notes Treatment Notes Treatment Clinical Notes Section Notes 11/14/2024 Type 2 diabetes mellitus with diabetic polyneuropathy (ICD-10 - E11.42) 11/14/2024 Tinea unguium (ICD-10 - B35.1) Plan Of Treatment Next Appt Details Follow Up: 3 Months, Reason: Provider Name:Rachele cannon, 02/13/2025 01:30:00 PM, [address] [place] [address], [address], Procedure Notes * Category Sub-Category Detail Notes [...] to maintain effectiveness in symptomatic relief - 86210 Progress Notes * Arun MCKINNEYOB:1960 (64 yo M)Acc No.[id number]:11/14/2024 Progress Note Patient:?Simone MCKINNEY Provider:?aRchele Uribe DPM :1960???Age:64 Y???Sex:Male Carrington e:11/14/2024 Address:[address] [place], [place] [address] [place] Pcp:Rhea Martinez Subjective: * Chief Complaints: * ???At Risk Footcare * HPI: ???At Risk footcare:?Pt States Last PCP Visit:?Date?09/03/2024 * ROS:?General/Constitutional:?Nausea?denies.?Vomiting?denies.?Hunger Thirst?denies.?Loss appetite?denies.?Chills?denies.?Fatigue?denies.?Fever?denies.?Night Sweats?denies.?Unexplained weight loss?denies.?Unexplained [...] t Surgical History * Hospitalization/Major Diagno stic Procedure:?[facility]- breathing issues 08/16/24 * Family History:?Mother: dece ased, foot problems, diagnosed with Diabetic - NIDDM, Unspecified essential hypertension, Family history of arthritis.?Father: , diagnosed with Unspecified essential hypertension, Unspecified cerebral artery occlusion with cerebral infarction.?Siblings: diagnosed with Other malignant neoplasm of unspecified site, Unspecified heart disease.? * Social History:?Tobacco Use:?Tobacco use other than smoking?Are you an other tobacco user??No ?Tobacco Control (Standard)?Tobacco use:?Nonsmoker ???Drugs/Alcohol:?Drugs?Have you used drugs other than those for medical reasons in the past 12 months??Yes ?Marijuana??Yes ?Alcohol Screen?Did you have a drink containing alcohol in the past year??No ?Points?0 ?Interpretation?Negative ???Miscellaneous:?Caffeine: yes, frequency:, 4 cups per day. ?Children: no, none. ?Exercise: yes, walking, housework, gardening/yard work. ?Marital status: single. 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 * Medications:?TakingPotassium albuterol Bethanechol Chloride Breo Ellipta [...] raises BPyes[Allergies Verified] Objective: * Vitals:?Ht: 5ft3in, Wt:115, BMI:20.37, Shoe size: 6.5, BP:123/81mm Hg, BS: 127, Ht-cm: 160.02 cm, Wt-k.16 kg. * ???Past Orders: ???Lab:HEMOGLOBIN A1C ([facility]CO HEMOGLOBIN) (Order Date - 09/03/2024) (Collection Date & Time - 09/03/2024 01:41 PM) ? Value Reference Range ?HEMOGLOBIN A1C % (HH) 8.2 * Examination: ???Ophthalmology Referral: ?DIABETES EYE EXAM?Procedure Performed:?Yes ?Date of Exam Performed?07/04/2024 ?Findings of Diabetic Eye Exam:?retinopathy?Neurological: ?SENSORY:? Neurological exam demonstrates, reduced light touch [...] T7, T8, T9.?Dermatologic: ?SKIN FINDINGS:?Skin exam reveals normal color, texture, elasticity, and turgor. There are no masses, nor excrescences. The interspaces are clear, B/L.?Vascular: ?DP PULSES (B):?4, B/L.?PT PULSES (B):? /4, B/L.?CAPILLARY FILL TIME:?3 secs. per digit. B/L.?TROPHIC [...] historian for office visit today.?ORIENTED:?person, place, and time.?FOOT EXAM:?Lower Extremity Neurological Exam performed:?Yes ?Visual exam of foot performed:?Yes ?Date?11/14/2024 ?Footwear Evaluation?Footwear Evaluation performed:?Yes??? Assessment: * Assessment: 1.?Type 2 diabetes mellitus with diabetic polyneuropathy - E11.42 (Primary)???2.?Tinea unguium - B35.1??? Plan: * Treatment: * Procedures:?Debride Nail 6-10:?Nail [...] to maintain effectiveness in symptomatic relief - 44811.? * Procedure Codes:?26233 DEBRI DE NAIL, 6 OR MORE, Modifiers: XS * Follow Up:?3 Months * Images: * Sign off status: Completed true * Provider:?Rachele Uribe, ROSALES Date:? Generated for Cassandra alexis/Norma/Saud on:?01/13/2025 03:03 PM EDT History and Physical Notes * HPI (History of Present Illness) Category Sub-Category Detail Notes Category Not es At Risk footcare Pt States Last PCP Visit: Date: Examination Category Sub-Category Detail Notes Category Not es Neurological SENSORY: Neurological exa m demonstrates, reduced light touch sensation, reduced sharp/dull pin prick discrimination , B/L, 5.07 monofilament test performed at plantar aspects of 5 varied sites per foot shows sensation, reduced , B/L Dermatologic SKIN FINDINGS: Skin exam reveal s normal color, texture, elasticity, and turgor. There are no masses, nor excrescences. The interspaces are clear, B/L Orthopedic FOOTWEAR EVALUATION: good condit ion, exhibit proper fit and accommodation for pedal [...] as own historian for office visit today FOOT EXAM: Lower Extremity Neurological Exa m performed:: Yes Visual exam of foot performed:: Yes Date: 11/14/2024 ORIENTED: person, place, and t andrew Footwear Evaluation Footwear Evaluation performe d:: Yes Ophthalmology Referral DIABETES EYE EXAM Procedure Perform ed:: Yes ?Date of Exam Performed: 07/04/2024 Findings of Diabetic Eye Exam:: retinopa thy Vascular DP PULSES (B): 1/4, B/L PT PULSES (B): 1/4, B/L CAPILLARY [...]
--- OUTSIDE RECORDS SUMMARY | 2025-01-13 15:04 | XMS_ITS ---
Author Organization [facility] [place] Address [address] [place] [address] Care Team Providers Care Fish Bin Tender Name Role Phone Juan Monicadelbert Primary Care Provider Rachele Vaca Unavailable [phone] Vivienne Greene Unavailable [phone] Allergies Allergen (clinical drug ingredient) Drug/Non Drug [...] Polyneuropathy due to type 2 diabetes mellitus ([id number]) Type 2 diabetes mellitus with diabetic polyneuropathy (E11.42) Active confirmed Vital Signs Height 5ft3in in 08/25/2024 Weight 120 lbs 08/25/2024 BMI 21.25 kg/m2 08/25/2024 Blood pressure systolic 125 mm Hg 08/25/20 Blood pressure diastolic 80 mm Hg 024 Procedures Procedure Date Ordered Date Performed Result Body Sit e 28713-KZVIOWU NAIL, 6 OR MORE 08/25/2024 N/A 25787-UWDJ SKIN LESIONS, OVER 4 08/25/2024 N/A Encounters Encounter Location Date Provider Diagnosis [facility] [place] [address] [place] [address] 08/25/2024 Vivienne Greene Type 2 diabetes mellitus [...] Treatment Pending Test Test Name Order Date 12921-[id number] NAIL, 6 OR MORE 08/25/2024 03997-XHCP SKIN LESIONS, OVER 4 08/25/20 24 Next Appt Details Follow Up: 3 Months, Reason: Provider Name:Rachele cannon, 02/13/2025 01:30:00 PM, [address] [place], [address], Procedure Notes * Category Sub-Category Detail Notes [...] use of a nail nipper and/or dremel-type precision thread grinder operator, to a more viable healthy nail plate [...] to maintain effectiveness in symptomatic relief - 16379 Keratoma Treatment Parring or Cutting o f [...] instrumentation by the physician of record - 15481 Progress Notes * Arun MIROB:1960 (64 yo M)Acc No.[id number]:08/25/2024 Progress Note Patient:?Wilfred MIRn Provider:?Vivienne Greene DPM :1960???Age:64 Y???Sex:Male Carrington e:08/25/2024 Address:[address] [place] [address], [facility] Pcp:Rhea Martinez Subjective: * Chief Complaints: * [...] t Surgical History * Hospitalization/Major Diagno stic Procedure:?[facility] [place] [facility]- breathing issues 08/16/24 * Family History:?Mother: [...] 7.6 * Examination: ???Ophthalmology Referral: ?DIABETES EYE EXAM?Procedure [...] 2 B/L,?plantar heel(s), B/L .?Vascular: ?DP PULSES (B):?1/4, B/L.?PT PULSES (B):? /4, B/L.?CAPILLARY FILL TIME:?3 [...] use of a nail nipper and/or dremel-type precision thread grinder operator, to a more viable healthy nail plate [...] to maintain effectiveness in symptomatic relief - 85495.?Keratoma Treatment:?Parring or Cutting of Benign Hyperkeratotic Lesion(s)?(-57) [...] instrumentation by the physician of record - 37767.? * Procedure Codes:?89030 DEBRI DE NAIL, 6 OR MORE, Modifiers: XS 46473 TRIM SKIN LESIONS, OVER 4, Modifiers: XS [...] Provider:?Vivienne Greene DPM Date:?10/26/2023 Generated for Cassandra alexis/Norma/Saud on:?01/13/2025 03:03 PM [...] 2 B/L, plantar heel(s), B/L VERRUCA: Orthopedic FOOTWEAR EVALUATION: good condit ion, exhibit [...]
--- OUTSIDE RECORDS SUMMARY | 2025-01-13 15:04 | XMS_ITS | Encounter Summary ---
Author Organization [facility], Address [address] [place] [address] Phone Care Team Providers Care Drink Waiter Name Role Phone Rhea Martinez MD Primary Care Provider [phone] Encounter Details Date Type Department Care Team (Late st Contact Info) Description 10/27/2021 Documentation Only [facility], [address] [place] [address] Rico Lamb MD [address] [place] [address] [place] [address] Social History Tobacco Use Types [...] Visit [facility] [address] [place] [address] Rico Lamb MD [address] [place] [address] [place] [address] documented as of this encounter Visit Diagnoses Not on filedocumented in this encounter Care Teams Drink Waiter Relationship Specialty Start Date End Date Rhea Martinez MD [facility] [place] [address] [place] PCP - General 07/08/19 documented as of this encounter
--- OUTSIDE RECORDS SUMMARY | 2025-01-13 15:04 | XMS_ITS | Patient Health Record ---
Author Organization [facility] Address [address] [place] [address] Care Team Providers Care Infant Nanny Name Role Phone Rhea Martinez Primary Care Provider UnavailRachele Andersen Unavailable [phone] David Ndiaye Unavailable [phone] Vivienne Greene Unavailable [phone] Allergies Allergen (clinical drug ingredient) Drug/Non Drug Allergy documented on EMR Reaction Allergy Type Onset Date Status acetaminophen Tylenol Unknown Drug Allergy Act john Cortisone raises BP Drug Allergy Active Results Component Value Reference Range Notes HEMOGLOBIN A1C (GLYCOHEMOGLO BIN) Reviewed date:06/02/2024 01:34:07 PM Interpretation: Performing Lab: Notes/Report: TOTAL HEMOGLOBIN (HGBA1C) 7.4 HEMOGLOBIN A1C (GLYCOHEMOGLO BIN) Reviewed date:11/14/2024 01:42:13 PM Interpretation: Performing Lab: Notes/Report: HEMOGLOBIN A1C % (HH) 8.2 HEMOGLOBIN A1C (GLYCOHEMOGLO BIN) Reviewed date:08/25/2024 02:20:14 PM Interpretation: Performing Lab: Notes/Report: TOTAL HEMOGLOBIN (HGBA1C) 7.6 Reason For Referral No Information Medications Medication SIG (Take, Route, Frequency, Duration) Notes Start Date End Date Status Insulin Active Gabapentin Active carBAMazepine Active Breo Ellipta Active Bethanechol Chloride Active albuterol Active Extra Depth Diabetic Shoes with 3 Pair Custom heat-molded multi-density innersoles for 1 year Dx: Active Potassium Active Carvedilol 25 MG 1 tablet with food O ral Twice a day for 30 days Active Extra Depth Diabetic Shoes with 3 Pair Custom heat-molded multi-density innersoles for 1 year Dx: 09/20/2022 Active Rosuvastatin Calcium Active Spiriva HandiHaler A ctive Lisinopril Active Immunizations Vaccine Route Administration Date Status Commdeloris nts COVID-19 Pfizer BioNTech Vaccine Unknown 07/11/2022 [...] (Standard) Question Answer Notes Tobacco use: Nonsmoker Problems Problem Type SNOMED Code ICD Code Onset Dates Problem Status W/U Status Risk Notes Problem Type 2 diabetes mellitus with diabetic polyneuropathy (E11.42) Active confirmed Problem Acquired hammer toe of right foot (3823452526481728 ) Other hammer toe(s) (acquired), right foot (M20.41) Active confirmed Response to treatment, Improvemen t Problem Acquired hammer toe of left foot (4786272359358864 ) Other hammer toe(s) (acquired), left foot (M20.42) Active confirmed Response to treatment, Improvemen t Problem Polyneuropathy due to diabetes mellitus type I (781535190) Type 1 diabetes mellitus with diabetic polyneuropathy (E10.42) Active confirmed Vital Signs Blood pressure diastolic 81 mm Hg 11/14/2024 Height 5ft3in in 11/14/2024 Blood pressure systolic 123 mm Hg 11/14/2024 Weight 115 lbs 11/14/2024 BMI 20.37 kg/m2 11/14/2024 Procedures Procedure Date Ordered Date Performed Result Body Sit e 47109-MZEEPOD NAIL, 6 OR MORE 08/25/2024 N/A 56900-IOLO SKIN LESIONS, OVER 4 08/25/2024 N/A Encounters Encounter Location Date Provider Diagnosis [facility] [place] [address] [place] [address] 03/10/2024 David Ndiaye Other viral warts B07.8 [...] right foot M20.41 and Ingrowing nail L60.[address] [address] 06/02/2024 David Ndiaye Other viral warts B07.8 [...] right foot M20.41 and Ingrowing nail L60.[address] [address] 08/25/2024 Vivienne Jc Type 2 diabetes mellitus with diabetic polyneuropathy E11.42 ; Tinea unguium B35.1 ; Other hammer toe(s) (acquired), right foot M20.41 and Other hammer toe(s) (acquired), left foot M20.[address] [address] 11/14/2024 Rachele Uribe Type 2 diabetes mellitus with diabetic polyneuropathy E11.42 and Tinea unguium B35.[address] [address] 07/03/2024 David Ndiaye Type 1 diabetes mellitus [...] E11.42) 08/25/2024 Tinea unguium (ICD-10 - B35.1) 11/14/2024 Type 2 diabetes mellitus with diabetic polyneuropathy (ICD-10 - E11.42) 11/14/2024 Tinea unguium (ICD-10 - B35.1) 08/25/2024 Other [...] in left toe(s) (ICD-10 - M79.675) 03/10/2024 Tinea unguium (ICD-10 - B35.1) 03/10/2024 Skin disease (ICD-10 - L98.9) 06/02/2024 [...] L60.0) 03/10/2024 Ingrowing nail (ICD-10 - L60.0) Plan Of Treatment Pending Test Test Name Order Date 83424-EXWMELN NAIL, 6 OR MORE 08/25/2024 25241-MXFH SKIN LESIONS, OVER 4 08/25/20 65251-ZATZ SKIN LESIONS, OVER 4 09/20/19 32042-GURE SKIN LESIONS, OVER 4 11/24/19 61011-RPCW SKIN LESIONS, 2 TO 4 02/02/20 Next Appt Details Provider Name:Rachele cannon, 02/13/2025 01:30:00 PM, [address] [facility], [place], [address], Insurance Providers Payer Name Payer Address Payer Phone Subscriber Number Group Number Insured Name Patient Relationship to Insured Coverage Start Date Coverage End Date Medicare National Govt Svcs Inc [address] [place] [address] [id number] Simone Mir Self - patient is the insured Medical (General) History Medical History History ICD Code Arthritis Back,Hip,and Knee pain Broken bones CAD (Cholesterol) type I diabetes Gall bladder problems Heart disease High blood pressure Kidney disease Lung disease COPD Surgical History Surgery Date(Month/Year) Hospitalization History Reason Date(Month/Year) [facility] [place]- breathing issues 08/16/24
--- OUTSIDE RECORDS SUMMARY | 2025-01-13 15:04 | XMS_ITS | Clinical Summary ---
Author Organization [employer] Address [address] [facility] [address] [place] [address] Care Team Providers Care Tire Changer Aircraft Name Role Phone Unavailable Primary Care Provider [...] topic Meningococcal Vaccine Aged Out No hari hugn eligible based on patient's age to complete [...] Recently Relevant to Health Maintenance Insurance [facility]
--- OUTSIDE RECORDS SUMMARY | 2025-01-13 15:04 | XMS_ITS ---
Author Organization [facility] Address [address] [place] [address] Care Team Providers Care Director Employee Safety And Health Name Role Phone Rhea Martinez Primary Care Provider Rachele Vaca Unavailable [phone] David Ndiaye Unavailable [phone] REASON FOR VISIT rx diab shoe Medications Medication SIG (Take, Route, Frequency, Duration) Notes Start Date End Date Status Extra Depth Diabetic Shoes with 3 Pair Custom heat-molded multi-density innersoles for 1 year Dx: Active Encounters Encounter Location Date Provider Diagnosis [address] [address] 07/03/2024 David Ndiaye Type 1 diabetes mellitus [...] Dx: Next Appt Details Provider Name:Rachele cannon, 02/13/2025 01:30:00 PM, [address] [place] [address], [address], Progress Notes * Arun MCKINNEYOB:1960 (63 yo M)Acc No.[id number]:07/03/2024 Patient:?Simone Mckinney :1960???Age:63 Y???Sex:Male Address:[address] [place] [address], [place], [address] * Refills? Refill Extra Depth Diabetic Shoes with 3 Pair Custom heat-molded multi-density innersoles, 1 pair shoes/3 sets inserts, for 1 year, Dx:, Refills=0 * true * Date:? Generated for Cassandra alexis/Norma/eTransmitting on:?01/13/2025 03:04 PM EDT
== END 2025-01-13 14:42 | disposition home or self-care (01) ==
LOC: HO.HMCH 13:53
PROVIDERS: PCP Internal Medicine; Visit Provider Internal Medicine
DX: I12.9 Hypertensive chronic kidney disease with stage 1 through stage 4 chronic kidney disease, or unspecified chronic kidney disease (principal); E10.42 Type 1 diabetes mellitus with diabetic polyneuropathy; J43.9 Emphysema, unspecified; N18.2 Chronic kidney disease, stage 2 (mild); E78.00 Pure hypercholesterolemia, unspecified; I25.10 Atherosclerotic heart disease of native coronary artery without angina pectoris; N40.1 Benign prostatic hyperplasia with lower urinary tract symptoms; R39.12 Poor urinary stream; J90 Pleural effusion, not elsewhere classified; U07.1 COVID-19; Z23 Encounter for immunization

== ENCOUNTER → 2025-01-13 13:52 | Outpatient (BNVA) | payer MEDICARE, MEDICAID, SELFPAY | PROVIDERS: PCP Internal Medicine; Visit Provider Internal Medicine | DX: Z23 Encounter for immunization (principal); E10.42 Type 1 diabetes mellitus with diabetic polyneuropathy; E78.00 Pure hypercholesterolemia, unspecified; J43.9 Emphysema, unspecified; I25.10 Atherosclerotic heart disease of native coronary artery without angina pectoris; I12.9 Hypertensive chronic kidney disease with stage 1 through stage 4 chronic kidney disease, or unspecified chronic kidney disease; E10.22 Type 1 diabetes mellitus with diabetic chronic kidney disease; N18.2 Chronic kidney disease, stage 2 (mild); N40.1 Benign prostatic hyperplasia with lower urinary tract symptoms; R39.12 Poor urinary stream; J90 Pleural effusion, not elsewhere classified; U07.1 COVID-19 | CPT/HCPCS: 83036; 90471; 90677; 99212 ==

== ENCOUNTER 2025-01-15 12:52 | Outpatient (REF) | payer MEDICARE, MEDICAID, SELFPAY ==
--- NOTE | ~2025-01-15 | FL_ITS ---
EXAMINATION: Fluoroscopy guided right hip steroid injection. CLINICAL INDICATION: Primary right hip osteoarthritis. COMPARISON: Pelvis x-ray 09/26/2024. TECHNIQUE: Following explaining right hip steroid injection procedure, benefits and risk, a written consent was obtained. Patient was placed supine on fluoroscopy table and an optimal site was selected along the anterior right hip and marked on the skin. The marked site was cleaned and draped in usual sterile manner. 1% chlorhexidine solution was injected at the marked site. A 22-gauge spinal needle was then inserted from the skin to the junction of right femoral head and neck and tail of nonionic contrast injected. Subsequently 40 mg of Depo-Medrol, 4 mL of 1% lidocaine and 4 mL of 2% lidocaine as a 10 mL of combination was injected and needle withdrawn. Complete hemostasis was achieved at puncture site. Patient tolerated procedure extremely well. Graph findings/ FL/FL Guided Asp Inj Major Jt RT impression: The right hip joint space is maintained normal. There is no bony erosive changes. FINDINGS/IMPRESSION: Fluoroscopy-guided right hip steroid injection performed without immediate complications. Fluoroscopy time: 20 seconds. Dose area product: 254.8 mGy/cm. Electronically signed by: Sunil Chambers MD 01/16/2025 11:44 AM EDT
--- OUTSIDE RECORDS SUMMARY | 2025-01-15 13:28 | XMS_ITS | Encounter Summary ---
Author Organization [facility], Address [address] [place] [address] Phone Care Team Providers Care Meat Pumper Name Role Phone Rhea Martinez MD Primary Care Provider [phone] Encounter Details Date Type Department Care Team (Late st Contact Info) Description 08/11/2024 Documentation Only [facility] [address] [place] [address] Margareth Garcia [address] [place] [address] Social History Tobacco Use Types [...] Visit [facility] [address] [place] [address] Rico Lamb MD [address] [facility] [place] [address] documented as of this encounter Visit Diagnoses Not on filedocumented in this encounter Care Teams Meat Pumper Relationship Specialty Start Date End Date Rhea Martinez MD [facility] [place] [address] KARINA FULLER PCP - General 07/08/19 documented as of this encounter
--- OUTSIDE RECORDS SUMMARY | 2025-01-15 13:28 | XMS_ITS | Encounter Summary ---
Author Organization [facility], Address [address] [place] [address] Phone Care Team Providers Care Caul Fat Puller Name Role Phone Rhea Martinez MD Primary Care Provider [phone] Encounter Details Date Type Department Care Team (Late st Contact Info) Description 07/06/2022 Documentation Only [facility], [address] [place] [address] Rico Lamb MD [address] [place] [address] [place] [address] Social History Tobacco Use Types [...] Visit [facility] [address] [place] [address] Rico Lamb MD [address] [place] [address] [place] [address] documented as of this encounter Visit Diagnoses Not on filedocumented in this encounter Care Teams Caul Fat Puller Relationship Specialty Start Date End Date Rhea Martinez MD [facility] [place] [address] [place] PCP - General 07/08/19 documented as of this encounter
--- OUTSIDE RECORDS SUMMARY | 2025-01-15 13:28 | XMS_ITS | Patient Health Record ---
Author Organization [facility] Address [address] [place] [address] Care Team Providers Care B2B Sales Representative Name Role Phone Rhea Martinez Primary Care Provider UnavailRachele Andersen Unavailable [phone] David Ndiaye Unavailable [phone] Vivienne Greene Unavailable [phone] Allergies Allergen (clinical drug ingredient) Drug/Non Drug [...] (HGBA1C) 7.6 HEMOGLOBIN A1C (GLYCOHEMOGLO BIN) Reviewed date:11/14/2024 01:42:13 PM Interpretation: Performing Lab: Notes/Report: HEMOGLOBIN A1C % (HH) 8.2 Reason For Referral No Information Medications Medication [...] Polyneuropathy due to type 2 diabetes mellitus (585500695) Type 2 diabetes mellitus with diabetic polyneuropathy (E11.42) Active confirmed Problem Acquired hammer toe of right foot (9537236273060237 ) Other hammer toe(s) (acquired), right foot (M20.41) Active confirmed Response to treatment, Improvemen t Problem Acquired hammer toe of left foot (5493187700929884 ) Other hammer toe(s) (acquired), left foot (M20.42) Active confirmed Response to treatment, Improvemen t Problem Polyneuropathy due to diabetes mellitus type I (638167304) Type 1 diabetes mellitus with diabetic polyneuropathy (E10.42) Active confirmed Vital Signs Blood pressure diastolic 81 mm Hg 11/14/2024 Height 5ft3in in 11/14/2024 Blood pressure systolic 123 mm Hg 11/14/2024 Weight 115 lbs 11/14/2024 BMI 20.37 kg/m2 11/14/2024 Procedures Procedure Date Ordered Date Performed Result Body Sit e 96874-SFVKFVR NAIL, 6 OR MORE 08/25/2024 N/A 46094-JSSW SKIN LESIONS, OVER 4 08/25/2024 N/A Encounters Encounter Location Date Provider Diagnosis [facility] [place] [address] [place] [address] 03/10/2024 David Ndiaye Other viral warts B07.8 [...] right foot M20.41 and Ingrowing nail L60.[address] [address] 06/02/2024 David Ndiaye Other viral warts B07.8 [...] right foot M20.41 and Ingrowing nail L60.[address] [address] 08/25/2024 Vivienne Jc Type 2 diabetes mellitus with diabetic polyneuropathy E11.42 ; Tinea unguium B35.1 ; Other hammer toe(s) (acquired), right foot M20.41 and Other hammer toe(s) (acquired), left foot M20.[address] [address] 11/14/2024 Rachele Uribe Type 2 diabetes mellitus with diabetic polyneuropathy E11.42 and Tinea unguium B35.[address] [address] 07/03/2024 David Ndiaye Type 1 diabetes mellitus [...] Treatment Pending Test Test Name Order Date 19031-VNFBORF NAIL, 6 OR MORE 08/25/2024 97429-TKNP SKIN LESIONS, OVER 4 08/25/20 24 99083-FUOG SKIN LESIONS, OVER 4 09/20/19 42346-BXPD SKIN LESIONS, OVER 4 11/24/19 23 55064-OBNI SKIN LESIONS, 2 TO 4 02/02/20 Next Appt Details Provider Name:Rachele cannon, 02/13/2025 01:30:00 PM, [address] [facility], [place], [address], Insurance Providers Payer Name Payer Address Payer Phone Subscriber Number Group Number Insured Name Patient Relationship to Insured Coverage Start Date Coverage End Date Medicare National Govt Svcs Inc [address] [place] [address] [id number] Simone Mir Self - patient is the insured Medical (General) History Medical History History ICD Code Arthritis Back,Hip,and Knee pain Broken bones CAD (Cholesterol) type I diabetes Gall bladder problems Heart disease High blood pressure Kidney disease Lung disease COPD Surgical History Surgery Date(Month/Year) Hospitalization History Reason Date(Month/Year) [facility] [place]
--- OUTSIDE RECORDS SUMMARY | 2025-01-15 13:28 | XMS_ITS | Clinical Summary ---
Author Organization [employer] Address [address] [facility] 7t [place] [address] Care Team Providers Care Elementary Librarian Name Role Phone Unavailable Primary Care Provider [...] (Kenalog) 0.5 % cream 0 Active Immunizations Immunization Administration Dates Next Due Influenza injectable quadriv [...] patient's age to complete this topic Meningococcal B Vaccine Aged Out No l onger eligible based on patient's age to complete [...] Recently Relevant to Health Maintenance Insurance MEDICARE Member Subscriber Plan / Payer (Ef fective 2022-Present) Name:Simone Quintana Member ID:[id number] Relation to Subscriber:Self Name:Simone Quintana Subscriber ID:[id number] Payer ID:STATE Group ID:Not on file Type:Medicare Address: [facility] [address] [address] [place] ST[place] AD[place]
--- OUTSIDE RECORDS SUMMARY | 2025-01-15 13:29 | XMS_ITS ---
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) Active confirmed Vital Signs Blood pressure systolic 125 mm Hg 08/25/20 24 Blood pressure diastolic 80 mm Hg 024 Height 5ft3in in 08/25/2024 Weight 120 lbs 08/25/2024 BMI 21.25 kg/m2 08/25/2024 Procedures Procedure Date Ordered Date Performed Result Body Sit e 72315-YTBWGPO NAIL, 6 OR MORE 08/25/2024 N/A 82837-ORBU SKIN LESIONS, OVER 4 08/25/2024 N/A Encounters Encounter Location Date Provider Diagnosis [facility] [address] [place] [address] 08/25/2024 Vivienne Greene Type 2 diabetes mellitus [...] Treatment Pending Test Test Name Order Date 56704-LBUSNDA NAIL, 6 OR MORE 08/25/2024 24868-HBQH SKIN LESIONS, OVER 4 08/25/20 24 Next Appt Details Follow Up: 3 Months, Reason: Provider Name:Rachele cannon, 02/13/2025 01:30:00 PM, [address] [place], [address], Procedure Notes * Category Sub-Category Detail Notes [...] use of a nail nipper and/or dremel-type snuff grinder and screener, to a more viable healthy nail plate [...] to maintain effectiveness in symptomatic relief - 01387 Keratoma Treatment Parring or Cutting o f [...] instrumentation by the physician of record - 77026 Progress Notes * Arun MIROB:1960 (64 yo M)Acc No.[id number]:08/25/2024 Progress Note Patient:?Wilfred MIRn Provider:?Vivienne Greene DPM :1960???Age:64 Y???Sex:Male Carrington e:08/25/2024 Address:[address] [place] [address], [facility] Pcp:Rhea Martinez Subjective: * Chief Complaints: * [...] t Surgical History * Hospitalization/Major Diagno stic Procedure:?[facility] [place] [facility]- breathing issues 08/16/24 * Family History:?Mother: [...] use of a nail nipper and/or dremel-type snuff grinder and screener, to a more viable healthy nail plate [...] to maintain effectiveness in symptomatic relief - 81290.?Keratoma Treatment:?Parring or Cutting of Benign Hyperkeratotic Lesion(s)?(-57) [...] instrumentation by the physician of record - 62572.? * Procedure Codes:?56540 DEBRI DE NAIL, 6 OR MORE, Modifiers: XS 42820 TRIM SKIN LESIONS, OVER 4, Modifiers: XS [...] Greene DPM Date:?10/26/2023 Generated for Cassandra alexis/Norma/Saud on:?01/15/2025 01:28 PM EDT History and Physical Notes * [...]
--- OUTSIDE RECORDS SUMMARY | 2025-01-15 13:29 | XMS_ITS ---
Author Organization [facility] Address [address] [place] [address] Care Team Providers Care Roller Hand Name Role Phone Rhea Martinez Primary Care Provider Rachele Vaca Unavailable [phone] David Ndiaye Unavailable [phone] REASON FOR VISIT rx diab shoe Medications Medication SIG (Take, Route, Frequency, Duration) Notes Start Date End Date Status Extra Depth Diabetic Shoes with 3 Pair Custom heat-molded multi-density innersoles for 1 year Dx: Active Encounters Encounter Location Date Provider Diagnosis [address] [address] 07/03/2024 David Ndiaye Type 1 diabetes mellitus [...] Details Provider Name:Rachele cannon, 02/13/2025 01:30:00 PM, [address] [place] [address], [address], Progress Notes * Arun MCKINNEYOB:1960 (63 yo M)Acc No.[id number]:07/03/2024 Patient:?Simone Mckinney :1960???Age:63 Y???Sex:Male Address:[address] [place] [address], [place], [address] * Refills? Refill Extra Depth Diabetic Shoes with 3 Pair Custom heat-molded multi-density innersoles, 1 pair shoes/3 sets inserts, for 1 year, Dx:, Refills=0 * true * Date:? Generated for Cassandra alexis/Norma/eTransmitting on:?01/15/2025 01:29 PM EDT
--- OUTSIDE RECORDS SUMMARY | 2025-01-15 13:29 | XMS_ITS | Clinical Summary ---
Author Organization [facility], Address [address] [place] [address] [place] [address] Phone Care Team Providers Care Social Media Coordinator Name Role Phone Rhea Martinez MD Primary Care Provider [phone] Allergies Active Allergy Reactions Criticality Noted Date [...] 05/19/20 25 Active ergocalciferol (Drisdol) 1.25 MG (22421 UT) capsule Take 1 capsule (50,000 Units [...] Visit [facility], [address] [place] [address] Rico Lamb MD Chronic kidney disease stage [...] Visit [facility], [address] [place] [address] Rico Lamb MD [address] [place] [place] [address] Health Maintenance Due Date Last Done [...] None seen 0 - 5 /hpf [facility] RBC, Urine 0-2 0 - 2 /hpf [facility] Squamous Epithelial, Urine None seen 0 - 10 /hpf [facility] Casts None seen None seen /lpf [facility] Bacteria, Urine None seen None seen/Few [facility] 11/05/2024 1:15 PM EST 11/05/2024 Rico Lamb MD LAB MICROBIOLOGY - GENERAL ORD ERABLES Final Result [facility] [address] [place] [address] * (ABNORMAL) Iron Panel (Fe, TIBC, TSAT) (11/05/2024 1:15 PM EST) TIBC 231(L) 250 - 450 ug/dL [facility] UIBC 152 111 - 343 ug/dL [facility] Iron 79 38 - 169 ug/dL [facility] Iron Saturation (TSat) 34 15 - 55 % [facility] 11/05/2024 1:15 PM EST 11/05/2024 Rico Lamb MD LAB BLOOD ORDERABLES Final Res ult [facility] [address] [place] [address] * (ABNORMAL) Urine Albumin / Creatinine Ratio (11/05/2024 1:15 PM EST) Creatinine, Ur 73.8 Not Estab. mg/dL [facility] Albumin, Urine 177.3 Not Estab. ug/mL [facility] Albumin/Creatin ine Ratio 240(H) 0 - 29 mg/g creat [facility] Comment: ? Normal: ?0 - ??29 ? Moderately increased: 30 - 300 ? Severely increased: ? >300 11/05/2024 1:15 PM EST 11/05/2024 us Rico Lamb MD LAB URINE ORDERABLES Final Res ult [facility] [address] [place] [address] * (ABNORMAL) Vitamin D 25 Hydroxy (11/05/2024 1:15 PM EST) Vitamin D, 25-OH, Total 20.6(L) 30.0 - 100.0 ng/mL [facility] Comment: Vitamin D deficiency has been defined by the [place] of [employer] and an Endocrine Society practice guideline as a level of serum 25-OH vitamin D less than 20 ng/mL (1,2). The Endocrine Society went on to further define vitamin D insufficiency as a level between 21 and 29 ng/mL (2). 1. IOM ([place] of [employer]). 2010. Dietary reference ?? intakes for calcium and D. [place]: The ?? National [employer]. 2. Elizabeth ROCK, Myrna PERRY, Nayeli CHONG, et al. ?? Evaluation, treatment, and prevention of vitamin D ?? deficiency: an Endocrine Society clinical practice ?? guideline. JCEM. 2010; 96(7):1911-30. 11/05/2024 1:15 PM EST 11/05/2024 Rico Lamb MD LAB BLOOD ORDERABLES Final Res ult [facility] [address] [place] [address] * (ABNORMAL) Urinalysis with microscopic (11/05/2024 1:15 PM EST) Specific Tyler, Urine 1.017 1.005 - 1.030 [facility] [phone] pH Urine 6.5 5.0 - 7.5 [facility] [phone] Color, Urine Yellow Yellow [facility] [phone] Appearance Urine Clear Clear [facility] [phone] WBC Esterase Urine Negative Negative [facility] [phone] Protein, Ur 2+(A) Negative/Tra ce [facility] Glucose, Ur 1+(A) Negative [facility] [phone] Ketones, Urine Negative Negative [facility] [phone] Blood Urine Negative Negative [facility] [phone] Bilirubin Urine Negative Negative [facility] [phone] Urobilinogen Urine 1.0 0.2 - 1.0 mg/dL [facility] [phone] Nitrite, Urine Negative Negative [facility] [phone] Microscopic Examination See below: [facility] Comment:Microscopic was lola cated and was performed. 11/05/2024 1:15 PM EST 11/05/2024 us Rico Lamb MD LAB URINE ORDERABLES Final Res ult [facility] [address] [place] [address] * CBC and Differential (11/05/2024 1:15 PM EST) WBC 7.0 3.4 - 10.8 x10E3/uL [facility] RBC 4.19 4.14 - 5.80 x10E6/uL [facility] Hemoglobin 13.1 13.0 - 17.7 g/dL [facility] Hematocrit 39.5 37.5 - 51.0 % [facility] MCV 94 79 - 97 fL [facility] MCH 31.3 26.6 - 33.0 pg [facility] MCHC 33.2 31.5 - 35.7 g/dL [facility] RDW 13.0 11.6 - 15.4 % [facility] Platelets 248 150 - 450 x10E3/uL [facility] Neutrophils Relative 54 Not Estab. % [facility] Lymphocytes Relative 32 Not Estab. % [facility] Monocytes 10 Not Estab. % [facility] Eosinophils Relative 3 Not Estab. % [facility] Basophils Relative 1 Not Estab. % [facility] Neutrophils Absolute 3.8 1.4 - 7.0 x10E3/uL [facility] Lymphocytes Absolute 2.3 0.7 - 3.1 x10E3/uL [facility] Monocytes Absolute 0.7 0.1 - 0.9 x10E3/uL [facility] Eosinophils Absolute 0.2 0.0 - 0.4 x10E3/uL [facility] Basophils Absolute 0.0 0.0 - 0.2 x10E3/uL [facility] Immature Granulocytes 0 Not Estab. % [facility] Immature Grans (Absolute) 0.0 0.0 - 0.1 x10E3/uL [facility] 11/05/2024 1:15 PM EST 11/05/2024 Rico Lamb MD LAB BLOOD ORDERABLES Final Res ult Performing Organization Address City/[facility]/ZIP Co de Phone Number [facility] [address] [place] [address] * (ABNORMAL) Uric Acid (11/05/2024 1:15 PM EST) Uric Acid 3.0(L) 3.8 - 8.4 mg/dL [facility] Comment:Therapeutic target f or gout patients: <6.0 11/05/2024 1:15 PM EST 11/05/2024 Rico Lamb MD LAB BLOOD ORDERABLES Final Res ult Performing Organization Address City/[facility]/ZIP Co de Phone Number [facility] [address] [place] [address] * Phosphorus (11/05/2024 1:15 PM EST) Phosphorus 3.4 2.8 - 4.1 mg/dL [facility] 11/05/2024 1:15 PM EST 11/05/2024 Rico Lamb MD LAB BLOOD ORDERABLES Final Res ult [facility] [address] [place] [address] * PTH, Intact (11/05/2024 1:15 PM EST) PTH 28 15 - 65 pg/mL [facility] 11/05/2024 1:15 PM EST 11/05/2024 Rico Lamb MD LAB BLOOD ORDERABLES Final Res ult Performing Organization Address City/[facility]/ZIP Co de Phone Number [facility] [address] [place] [address] * Magnesium (11/05/2024 1:15 PM EST) Magnesium 2.2 1.6 - 2.3 mg/dL [facility] 11/05/2024 1:15 PM EST 11/05/2024 Rico Lamb MD LAB BLOOD ORDERABLES Final Res ult [facility] [address] [place] [address] * Ferritin (11/05/2024 1:15 PM EST) Ferritin 204 30 - 400 ng/mL [facility] 11/05/2024 1:15 PM EST 11/05/2024 us Rico Lamb MD LAB BLOOD ORDERABLES Final Res ult [facility] [address] [place] [address] * (ABNORMAL) Comprehensive Metabolic Panel (11/05/2024 1:15 PM EST) Glucose 136(H) 70 - 99 mg/dL [facility] BUN 23 8 - 27 mg/dL [facility] Creatinine 1.11 0.76 - 1.27 mg/dL [facility] eGFR CKD-EPI CR 2020 74 >59 mL/min/1.7 3 [facility] BUN/Creatinine Ratio 21 10 - 24 [facility] Sodium 139 134 - 144 mmol/L [facility] Potassium 4.3 3.5 - 5.2 mmol/L [facility] Chloride 100 96 - 106 mmol/L [facility] Bicarbonate (CO2) 26 20 - 29 mmol/L [facility] Calcium 8.9 8.6 - 10.2 mg/dL [facility] Total Protein 6.6 6.0 - 8.5 g/dL [facility] Albumin 4.2 3.9 - 4.9 g/dL [facility] Globulin 2.4 1.5 - 4.5 g/dL [facility] Total Bilirubin <0.2 0.0 - 1.2 mg/dL [facility] Alkaline Phosphatase 96 44 - 121 IU/L [facility] AST (SGOT) 20 0 - 40 IU/L [facility] ALT (SGPT) 16 0 - 44 IU/L [facility] 11/05/2024 1:15 PM EST 11/05/2024 us Rico Lamb MD LAB BLOOD ORDERABLES Final Res ult [facility] [address] [place] [address] * (ABNORMAL) Hemoglobin A1c (07/05/2023 12:15 PM EDT) Hemoglobin A1C 7.4(H) (4.0-5.6) % [facility] Comment: MONITORING: In known diabetic patients, hemoglobin A1c targets should be discussed with health care provider. DIAGNOSTIC USE: ??The [place] Diabetes Association (ADA) and the World Health [...] 1 Testing performed or reported by [facility], a Service of [facility], [address] [place] [address] Curtis Marks MD, Handbook Writer [facility]# [id number] Blood (Blood, Venous) 07/05/2023 12:15 PM EDT 07/05/2023 12:26 PM EDT us Rico Lamb MD LAB BLOOD ORDERABLES Final Res ult [facility] from Last 3 Months or Most Recently Relevant to Health Maintenance Insurance Medicare Medicaid [place] Care Teams Social Media Coordinator Relationship Specialty Start Date End Date Rhea Martinez MD [address] [place] PCP - General 07/08/19
--- OUTSIDE RECORDS SUMMARY | 2025-01-15 13:29 | XMS_ITS ---
Author Organization [facility] [place] Address [address] [place] [address] Care Team Providers Care Junior Database Administrator Name Role Phone Rhea Martinez Primary Care Provider Rachele Vaca Unavailable [phone] Allergies Allergen (clinical drug ingredient) Drug/Non Drug [...] Answer Notes Tobacco use: Nonsmoker Vital Signs Blood pressure systolic 123 mm Hg 11/15/19 25 Blood pressure diastolic 81 mm Hg 025 Height 5ft3in in 11/14/2024 Weight 115 lbs 11/14/2024 BMI 20.37 kg/m2 11/14/2024 Encounters Encounter Location Date Provider Diagnosis [facility] [address] [address] 11/14/2024 Rachele Uribe Type 2 diabetes mellitus [...] Reason: Provider Name:Rachele cannon, 02/13/2025 01:30:00 PM, [address] [place] [address], [phone], Procedure Notes * Category Sub-Category Detail Notes [...] use of a nail nipper and/or dremel-type level vial inside grinder, to a more viable healthy nail [...] to maintain effectiveness in symptomatic relief - 78641 Progress Notes * Arun MCKINNEYOB:1960 (64 yo M)Acc No.[id number]:11/14/2024 Progress Note Patient:?Simone MCKINNEY Provider:?Rachele Uribe DPM :1960???Age:64 Y???Sex:Male [place]rington e:11/14/2024 Address:[address] [place], [place] [address] [place] Pcp:Rhea Martinez Subjective: * Chief Complaints: * [...] t Surgical History * Hospitalization/Major Diagno stic Procedure:?[facility] ER- breathing issues 08/16/24 * Family History:?Mother: [...] use of a nail nipper and/or dremel-type level vial inside grinder, to a more viable healthy nail [...] to maintain effectiveness in symptomatic relief - 68926.? * Procedure Codes:?02410 DEBRI DE NAIL, 6 OR MORE, Modifiers: XS * Follow Up:?3 Months * Images: * Sign off status: Completed true * Provider:?Rachele Uribe, ROSALES Date:? Generated for Cassandra alexis/Norma/Saud on:?01/15/2025 01:28 PM [...]
--- OUTSIDE RECORDS SUMMARY | 2025-01-15 13:29 | XMS_ITS | Encounter Summary ---
Author Organization [facility], Address [address] [place] [address] Phone Care Team Providers Care Database Administration Manager Name Role Phone Rhea Martinez MD Primary Care Provider [phone] Encounter Details Date Type Department Care Team (Late st Contact Info) Description 10/27/2021 Documentation Only [facility], [address] [place] [address] Rico Lamb MD [address] [place] [address] Dr. [place] [address] Social History Tobacco Use Types [...] Visit [facility] [address] [place] [address] Rico Lamb MD [address] [place] [address] Dr. [place] [address] documented as of this encounter Visit Diagnoses Not on filedocumented in this encounter Care Teams Database Administration Manager Relationship Specialty Start Date End Date Rhea Martinez MD [facility] [address] [place] PCP - General 07/08/19 documented as of this encounter
== END 2025-01-15 12:53 | disposition home or self-care (01) ==
LOC: HO.XRAY 12:52
PROVIDERS: PCP Internal Medicine; Visit Provider Physician Assistant
DX: M16.11 Unilateral primary osteoarthritis, right hip (principal)
CPT/HCPCS: 20610; 77002

== ENCOUNTER → 2025-01-15 12:55 | Outpatient (BNV) | payer MEDICARE, MEDICAID, SELFPAY | PROVIDERS: PCP Internal Medicine; Visit Provider Radiology Diagnostic Radiology | DX: M16.11 Unilateral primary osteoarthritis, right hip (principal) | CPT/HCPCS: 20610; 77002 ==

== ENCOUNTER 2025-01-29 11:56 | Outpatient (REF) | payer MEDICARE, MEDICAID, SELFPAY ==
--- OUTSIDE RECORDS SUMMARY | 2025-01-29 12:06 | XMS_ITS | Patient Health Record ---
Author Organization [facility] Address [address] [place] [address] Care Team Providers Care Airplane Mechanic Name Role Phone Rhea Martinez Primary Care Provider UnavailRachele Andersen Unavailable [phone] David Ndiaye Unavailable [phone] Vivienne Greene Unavailable [phone] Allergies Allergen (clinical drug ingredient) Drug/Non Drug [...] Problem Acquired hammer toe of right foot (4699139930284477 ) Other hammer toe(s) (acquired), right foot (M20.41) Active confirmed Response to treatment, Improvemen t Problem Acquired hammer toe of left foot (7349974614925979 ) Other hammer toe(s) (acquired), left foot (M20.42) Active confirmed Response to treatment, Improvemen t Problem Polyneuropathy due to diabetes mellitus type I (317542433) Type 1 diabetes mellitus with diabetic polyneuropathy (E10.42) Active confirmed Vital Signs Blood pressure diastolic 81 mm Hg 11/14/2024 Height 5ft3in in 11/14/2024 Blood pressure systolic 123 mm Hg 11/14/2024 Weight 115 lbs 11/14/2024 BMI 20.37 kg/m2 11/14/2024 Procedures Procedure Date Ordered Date Performed Result Body Sit e 90659-WKLHMVY NAIL, 6 OR MORE 08/25/2024 N/A 69684-SIAS SKIN LESIONS, OVER 4 08/25/2024 N/A Encounters Encounter Location Date Provider Diagnosis [facility] [place] [address] [place] [address] 03/10/2024 David Ndiaye Other viral warts B07.8 [...] right foot M20.41 and Ingrowing nail L60.[address] [address] 06/02/2024 David Ndiaye Other viral warts B07.8 [...] right foot M20.41 and Ingrowing nail L60.[address] [address] 08/25/2024 Vivienne Jc Type 2 diabetes mellitus with diabetic polyneuropathy E11.42 ; Tinea unguium B35.1 ; Other hammer toe(s) (acquired), right foot M20.41 and Other hammer toe(s) (acquired), left foot M20.[address] [address] 11/14/2024 Rachele Uribe Type 2 diabetes mellitus with diabetic polyneuropathy E11.42 and Tinea unguium B35.[address] [address] 07/03/2024 David Ndiaye Type 1 diabetes mellitus [...] Treatment Pending Test Test Name Order Date 42985-WYAUOUE NAIL, 6 OR MORE 08/25/2024 65084-FQXS SKIN LESIONS, OVER 4 08/25/20 70678-LDGQ SKIN LESIONS, OVER 4 09/20/19 76428-NBOL SKIN LESIONS, OVER 4 11/24/19 88459-PORS SKIN LESIONS, 2 TO 4 02/02/20 Next Appt Details Provider Name:Rachele cannon, 02/13/2025 01:30:00 PM, [address] [facility], [place], [address], Insurance Providers Payer Name Payer Address Payer Phone Subscriber Number Group Number Insured Name Patient Relationship to Insured Coverage Start Date Coverage End Date Medicare National [employer] [address] [place] [address] [id number] Simone Mir Self - patient is the insured Medical (General) History Medical History History ICD Code Arthritis Back,Hip,and Knee pain Broken bones CAD (Cholesterol) type I diabetes Gall bladder problems Heart disease High blood pressure Kidney disease Lung disease COPD Surgical History Surgery Date(Month/Year) Hospitalization History Reason Date(Month/Year) [facility] ER- breathing issues 08/16/24
[2025-01-29 14:39] LABS: Prostate Specific Antigen 1.17 ng/mL (<0.05-4.0)
== END 2025-01-29 11:57 | disposition home or self-care (01) ==
LOC: HO.HMGCLDS 11:56
PROVIDERS: Visit Provider Nurse Practitioner Family
DX: N40.0 Benign prostatic hyperplasia without lower urinary tract symptoms (principal); Z12.5 Encounter for screening for malignant neoplasm of prostate
CPT/HCPCS: 36415; 84153

== ENCOUNTER 2025-02-02 10:29 | Outpatient (AMB) | payer MEDICARE, SELFPAY ==
--- NOTE | 2025-02-02 10:32 | A.OFFVIS_ITS ---
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 Required: No Accompanied by: Self / Same As Patient Allergies adalimumab [From Humira] Adverse Reaction (Verified 02/02/25 11:02) sleepy pregabalin [From Lyrica] Adverse Reaction (Verified 02/02/25 11:02) Dizzyness Medication List - Last Reconciled 02/02/25 by GERMÁN Toussaint-WILLIAN albuterol sulfate 90 mcg/actuation (Ventolin HFA) 2 puffs PO Q4-6H PRN aspirin (Adult Aspirin Regimen) 81 mg PO DAILY PRN bethanechol chloride 50 mg PO BID 90 days Breo Ellipta 100-25 mcg/dose (fluticasone furoate-vilanterol) 1 ea PO DAILY NS carbamazepine ER 200 mg PO BEDTIME carvedilol 25 mg PO BID finasteride 5 mg PO DAILY 90 days gabapentin 200 mg PO DAILY PRN glucagon 3 mg/actuation (Baqsimi) mg intranasal hydrocodone-acetaminophen 5-325 mg 1 tab PO BID PRN 30 days insulin aspart U-100 70 units subcut DAILY ipratropium-albuterol 0.5 mg-3 mg(2.5 mg base)/3 mL 3 mL inhalation Q4H PRN 30 days lactulose 20 grams (30 mL) PO DAILY PRN lisinopril 40 mg PO DAILY mirabegron ER (Myrbetriq) 25 mg PO DAILY 90 days potassium citrate ER 10 mEq PO TID rosuvastatin 40 mg PO DAILY sennosides-docusate sodium 8.6-50 mg (Senna Plus) 2 tab-caps (2 x 8.6-50 mg) PO BEDTIME sildenafil (Viagra) 100 mg PO DAILY PRN simethicone (Gas Relief (simethicone)) 125 mg PO BEDTIME Spiriva with HandiHaler (tiotropium bromide) 1 cap inhalation DAILY NS tamsulosin 0.4 mg PO DAILY 90 days HPI Comments Details: Simone is a very pleasant 64-year-old male patient of Dr. Martinez. He has a past medical history of carpal tunnel syndrome, chronic kidney disease, COPD, coronary artery disease, diabetes type 1, diabetic neuropathy, eczema, hypercholesteremia, and hypertension. He presents to the office today for follow-up of his incomplete bladder emptying, weak stream, erectile dysfunction, overactive bladder, and diabetic cystopathy. In discussion with the patient today he reports to be doing and feeling well urologically however has been experiencing more issues with his arthritis. He discusses his upcoming appointment with pain management for further treatment options. He currently denies any bothersome urinary issues or concerns. He reports compliance with bethanechol, finasteride, tamsulosin, and Myrbetriq as prescribed. He discusses he has not been utilizing his p.r.n. Viagra as he is not currently sexually a ctive. In office urinalysis results reviewed with the patient today. PVR 0 mL. Previous workup has included retroperitoneal ultrasound 09/26 noting multiple bilateral renal cysts that are stable when compared to previous ultrasound exam. Bilateral kidneys with no renal calculi or hydronephrosis. The bladder is partially distended. Bladder jets are demonstrated. The prostate was enlarged measuring 52 mLs. He continues with good emptying with combination therapy. When asked he denies any bothersome urinary issues or concerns. He does report noting episodes of urinary urgency typically in the morning however feels these 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 infrequent. He otherwise offers no other issues or concerns at this time. PSAs are as follows: 10/26 1.3, 02/24 1.4, 06/26 2.9, 01/25 1.2 PREVIOUS OFFICE NOTE----- BPH with incomplete emptying progressive symptoms - urgency frequency with leakage tried tamsulosin 0.4 with minimal impact background of type 1 diabetes since 6 years old PSA 07/24 1.4, 10/26 1.3 symptoms at presentation - weakness of stream, incomplete emptying, hesitancy Cystoscopy - 03/23 small prostate with high residual Imaging - 09/24 CT scan 5 mm right stone Overactive bladder Diabetic cystopathy Initial symptoms include nocturia x3 Good response to Myrbetriq with decrease in nocturia to 1 time per night PFSH Medical History Urinary frequency COPD exacerbation Bloating Hypoglycemia Chronic constipation Tinea pedis, left Hx of fracture of femur Eczema Cholelithiasis Carpal tunnel syndrome Ankle fracture Diabetes mellitus type 1 Chronic kidney disease (CKD) stage G2/A3, mildly decreased glomerular filtration rate (GFR) between 60-89 mL/min/1.73 square meter and albuminuria creatinine ratio greater than 300 mg/g Hypercholesterolemia Diabetic neuropathy COPD (chronic obstructive pulmonary disease) Coronary artery disease Hypertension Surgical History Hx of colonoscopy Hx of eye surgery Hx of appendectomy H/O umbilical hernia repair History of cholecystectomy History of elbow surgery History of carpal tunnel release Family History Father Hypertension Stroke CVD (cerebrovascular disease) Mother Hypertension CVD (cerebrovascular disease) Diabetes Sister HX: breast cancer Paternal Grandfather Colon cancer Social History Housing: House Alcohol intake: former Patient Tobacco Use Status: Former Tobacco user Tobacco use type: Cigarette Years Smoked: 2002 quit 08/12 e-Cigarette/Vaping Use: Never Used Second Hand Smoke Exposure: No Substance Use Type: Marijuana service: No Current occupational status: disabled Cognitive needs: No Hearing needs: No Vision needs: Yes Review of Systems Const Reports as per HPI Eyes Reports no additional complaints ENT Reports no additional complaints Card Reports as per [facility] Resp Reports as per [facility] GI Reports no additional complaints Reports as per HPI Musc Reports as per HPI Neuro Reports no additional complaints Psych Reports no additional complaints Endo Reports as per HPI Physical Exam Const General: cooperative, comfortable, no acute distress, well developed, alert and awake Nutritional Appearance: thin Orientation/consciousness: patient oriented x3 Limitations: ambulation with walker HEENT Head: Yes normal to inspection, Yes normocephalic and Yes atraumatic Ears: hearing grossly normal bilaterally Eyes General: appearance normal, both eyes and all related structures Neck Neck: Yes normal visual inspection and Yes trachea midline Chest Chest palpation & inspection: normal inspection of the chest Resp Effort & Inspection: normal respiratory effort and able to speak in complete sentences Cardio Rate: regular rate GI Inspection: Yes normal to inspection General: Yes no CVA tenderness Back/Spine/Pelvis Back: no CVA tenderness Skin General skin exam: no rashes or lesions noted Neuro General: patient oriented x3 Extrem General: Yes normal to inspection Psych Appearance: grossly normal and well kempt Mental Status: mental status grossly normal Speech and movement: Normal speech and movement present and Clear speech present Affect: normal affect Attitude: cooperative Thought process: Normal thought process present Thought content: Normal thought content present Insight: Fair insight present (Psych) Judgement: Fair judgement present (Psych) Office Procedures Post Void Residual Post Residual Void Post Void Residual (PVR): 0 43027-Guzx Void Residual by ultrasound Results AMB Urinalysis, Automated UA Leukoctes 0 Christine/uL Last Edit by Carlos Rizzo on 02/02/25 10:49 UA Nitrite Negative Last Edit by Carlos Rizzo on 02/02/25 10:49 UA Urobilinogen 0.2 mg/dL Last Edit by Carlos Rizzo on 02/02/25 10:49 UA Protein 30 mg/dL Last Edit by Carlos Rizzo on 02/02/25 10:49 UA pH 6.0 Last Edit by Carlos Rizzo on 02/02/25 10:49 UA Blood 0 Stevan/uL Last Edit by Carlos Rizzo on 02/02/25 10:49 UA Specific [place] 1.015 Last Edit by Carlos Rizzo on 02/02/25 10:49 UA Ketone Negative Last Edit by Carlos Rizzo on 02/02/25 10:49 UA Bilirubin 0 mg/dL Last Edit by Carlos Rizzo on 02/02/25 10:49 UA Glucose 0 mg/dL Last Edit by Carlos Rizzo on 02/02/25 10:49 Results Reviewed Results Reviewed: Laboratory Last Values Urine pH (Auto) 6.0 02/02/25 10:34 Specific [place] (Auto) 1.015 02/02/25 10:34 Urine Protein (Auto) 30 mg/dL 02/02/25 10:34 Glucose (UA)(Auto) 0 mg/dL 02/02/25 10:34 Urine Ketones (Auto) Negative 02/02/25 10:34 Urine Blood (Auto) 0 Stevan/uL 02/02/25 10:34 Urine Nitrite (Auto) Negative 02/02/25 10:34 Urine Bilirubin (Auto) 0 mg/dL 02/02/25 10:34 Urine Urobilinogen (Auto) 0.2 mg/dL 02/02/25 10:34 Leukocyte Esterase (Auto) 0 Christine/uL 02/02/25 10:34 Assessment & Plan Assessment & Plan (1) Renal calculi: Comment: 2020 Code(s): N20.0 - Calculus of kidney Category: Medical (2) Urinary retention with incomplete bladder emptying: Code(s): R33.9 - Retention of urine, unspecified Category: Medical (3) Weak urinary stream: Code(s): R39.12 - Poor urinary stream Category: Medical (4) BPH (benign prostatic hyperplasia): Code(s): N40.0 - Benign prostatic hyperplasia without lower urinary tract symptoms Category: Medical Qualifiers: Lower urinary tract symptom presence: symptoms present Lower urinary tract symptom detail: weak urinary stream Qualified Code(s): N40.1 - Benign prostatic hyperplasia with lower urinary tract symptoms; R39.12 - Poor urinary stream (5) Erectile dysfunction: Code(s): N52.9 - Male erectile dysfunction, unspecified Category: Medical (6) Renal cyst: Code(s): N28.1 - Cyst of kidney, acquired Category: Medical Plan In office urinalysis results reviewed with the patient today; as noted above. PVR 0 mL. Continue Myrbetriq, bethanechol, and Flomax as discussed and prescribed; refill provided. Continue finasteride however discussed taking Sunday. Recent PSA results reviewed with the patient today; as noted above. Will continue with surveillance monitoring of renal cysts as well as nephrolithiasis. Discussed, educated, and stressed the importance of managing diabetes for improvement in lower urinary tract symptoms, erectile dysfunction, and overall health and well-being. Discussed, educated, and stressed the importance of limiting/quitting nicotine dependence for overall health and well-being. Will obtain renal ultrasound 6 months Follow-up in 6 months with imaging and PVR or sooner with any issues, concerns, and or questions. Orders: Orders AMB Post Void Residual by ultrasound Today R33.9 - Retention of urine, unspecified US renal BI 6 Months N20.0 - Calculus of kidney, N28.1 - Cyst of kidney, acq uired AMB Urinalysis Automated Today Z13.9 - Encounter for screening, unspecified Patient Instructions: The patient had an opportunity to ask questions regarding the treatment plan. All questions were answered. Physical exam, labs, and imaging were discussed and reviewed in detail. As well as risks, benefits, and discussion of treatment choices. No major barriers to understanding were identified. The patient expressed understanding and agreement with the above treatment plan. The patient was made aware they should contact our office by phone for worsening of their current condition, the appearance of new symptoms, or with any questions or concerns. Compliance is encouraged with any medications and follow up testing that is ordered. It is a privilege to be allowed the opportunity to participate in? your urological care.? Again, if you have any questions or concerns If you have any questions or concerns please do not hesitate to contact me. The office is [phone]. This note is constructed using voice recognition software. While every effort has been made to ensure accuracy coal feeder operator errors may have been included. Yours sincerely, [place] Toussaint Coding Level of Care Code Est Pt Level 3 (18431) Complex EM visit Add On G2211 Diagnoses Renal calculi N20.0 Urinary retention with incomplete bladder emptying R33.9 Weak urinary stream R39.12 Benign prostatic hyperplasia with weak urinary stream N40.1; R39.12 Lower urinary tract symptom presence: symptoms present Lower urinary tract symptom detail: weak urinary stream Erectile dysfunction N52.9 Renal cyst N28.1 CPT Codes Post Residual Void - PVR CPT Code: 61512-Iycg Void Residual by ultrasound ([id number])
--- OUTSIDE RECORDS SUMMARY | 2025-02-02 11:35 | XMS_ITS | Encounter Summary ---
Author Organization [facility], Address [address] [place] [address] Phone Care Team Providers Care Oral And Maxillofacial Surgery Name Role Phone Rhea Martinez MD Primary Care Provider [phone] Encounter Details Date Type Department Care Team (Late st Contact Info) Description 10/27/2021 Documentation Only [facility], [address] [place] [address] Rico Lamb MD [address] [place] [address] [place] [address] Social History Tobacco Use Types [...] Visit [facility] [address] [place] [address] Rico Lamb MD [address] [place] [address] [place] [address] documented as of this encounter Visit Diagnoses Not on filedocumented in this encounter Care Teams Oral And Maxillofacial Surgery Relationship Specialty Start Date End Date Rhea Martinez MD [facility] [address] [place] PCP - General 07/08/19 documented as of this encounter
== END 2025-02-02 11:00 | disposition home or self-care (01) ==
LOC: HO.HUSH 10:29
PROVIDERS: PCP Internal Medicine; Visit Provider Nurse Practitioner Family
DX: N20.0 Calculus of kidney (principal); N40.1 Benign prostatic hyperplasia with lower urinary tract symptoms; R33.9 Retention of urine, unspecified; R39.12 Poor urinary stream; N52.9 Male erectile dysfunction, unspecified; N28.1 Cyst of kidney, acquired; Z13.9 Encounter for screening, unspecified
CPT/HCPCS: 99213; G2211

== ENCOUNTER → 2025-02-02 10:29 | Outpatient (BNVA) | payer MEDICARE, SELFPAY | PROVIDERS: PCP Internal Medicine; Visit Provider Nurse Practitioner Family | DX: N40.1 Benign prostatic hyperplasia with lower urinary tract symptoms (principal); R33.9 Retention of urine, unspecified; R39.12 Poor urinary stream; N52.9 Male erectile dysfunction, unspecified; N28.1 Cyst of kidney, acquired; N20.0 Calculus of kidney | CPT/HCPCS: 51798; 81003; 99212 ==

== ENCOUNTER 2025-03-16 10:36 | Outpatient (AMB) | payer MEDICARE, MEDICAID, SELFPAY ==
--- NOTE | 2025-03-16 10:41 | A.OFFVIS_ITS ---
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: No Allergies adalimumab (From Humira) Adverse Reaction (Verified 03/16/25 10:43) sleepy pregabalin (From Lyrica) Adverse Reaction (Verified 03/16/25 10:43) Dizzyness Medication List - Last Reconciled 03/16/25 by Adelina Loera LPN albuterol sulfate 90 mcg/actuation (Ventolin HFA) 2 puffs PO Q4-6H PRN aspirin (Adult Aspirin Regimen) 81 mg PO DAILY PRN bethanechol chloride 50 mg PO BID 90 days Breo Ellipta 100-25 mcg/dose (fluticasone furoate-vilanterol) 1 ea PO DAILY NS carbamazepine ER 200 mg PO BEDTIME carvedilol 25 mg PO BID finasteride 5 mg PO DAILY 90 days gabapentin 200 mg PO DAILY PRN glucagon 3 mg/actuation (Baqsimi) mg intranasal hydrocodone-acetaminophen 5-325 mg 1 tab PO BID PRN 30 days insulin aspart U-100 70 units subcut DAILY ipratropium-albuterol 0.5 mg-3 mg(2.5 mg base)/3 mL 3 mL inhalation Q4H PRN 30 days lactulose 20 grams (30 mL) PO DAILY PRN lisinopril 40 mg PO DAILY mirabegron ER (Myrbetriq) 25 mg PO DAILY 90 days potassium citrate ER 10 mEq PO TID rosuvastatin 40 mg PO DAILY sennosides-docusate sodium 8.6-50 mg (Senna Plus) 2 tab-caps (2 x 8.6-50 mg) PO BEDTIME sildenafil (Viagra) 100 mg PO DAILY PRN simethicone (Gas Relief (simethicone)) 125 mg PO BEDTIME Spiriva with HandiHaler (tiotropium bromide) 1 cap inhalation DAILY NS tamsulosin 0.4 mg PO DAILY 90 days HPI HPI Unilateral primary osteoarthritis, right hip: Details: History of Present Illness The patient is a 64-year-old male presenting with right hip pain. The pain has been present for the past 10 months and is located in the area of the greater trochanteric bursa, buttocks, and groin, with intermittent radiation to the right lower extremity. The patient has a history of a femur fracture in 1972, which required prolonged immobilization and traction. The patient received a right greater trochanteric bursa injection in September 2024, which provided relief for only two days. A subsequent injection performed in the radiology department in January was ineffective. The patient reports progressive worsening of symptoms since May, leading to increased mobility aids from a cane to a walker. The patient has a pain management contract and receives hydrocodone from his primary care provider. He has not engaged in physical therapy for his back. 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 Pain Description - Onset: 10 months ago - Quality: Intermittent pain - Location: Right hip, greater trochanteric bursa, buttocks, groin - Radiation: Right lower extremity - Exacerbating factors: Progressive worsening since May - Relieving factors: Initial relief from injection for two days - Interference: Increased use of mobility aids from cane to walker Physical Exam - Musculoskeletal: Positive SI joint compression thrust, distraction test, and Papa's test indicating sacroiliac joint dysfunction Results - Imaging: Prior ineffective right hip injections, including fluoroscopy-guided injection Pain Management - Affect: Pain impacts mobility and daily activities, limiting ability to go out or grocery shop - Analgesia: Currently on hydrocodone, pain persists despite medication - Activities of Daily Living: Uses cane and walker due to pain, affecting independence [facility] Medical History Urinary frequency COPD exacerbation Bloating Hypoglycemia Chronic constipation Tinea pedis, left Hx of fracture of femur Eczema Cholelithiasis Carpal tunnel syndrome Ankle fracture Diabetes mellitus type 1 Chronic kidney disease (CKD) stage G2/A3, mildly decreased glomerular filtration rate (GFR) between 60-89 mL/min/1.73 square meter and albuminuria creatinine ratio greater than 300 mg/g Hypercholesterolemia Diabetic neuropathy COPD (chronic obstructive pulmonary disease) Coronary artery disease Hypertension Surgical History Hx of colonoscopy Hx of eye surgery Hx of appendectomy H/O umbilical hernia repair History of cholecystectomy History of elbow surgery History of carpal tunnel release Family History Father Hypertension Stroke CVD (cerebrovascular disease) Mother Hypertension CVD (cerebrovascular disease) Diabetes Sister HX: breast cancer Paternal Grandfather Colon cancer Social History Housing: House Alcohol intake: former Patient Tobacco Use Status: Former Tobacco user Tobacco use type: Cigarette Years Smoked: 2002 quit 08/12 e-Cigarette/Vaping Use: Never Used Second Hand Smoke Exposure: No Substance Use Type: Marijuana service: No Current occupational status: disabled Cognitive needs: No Hearing needs: No Vision needs: Yes Physical Exam Vital Signs: Last Vital Signs Pulse 68 03/16/25 10:42 Resp 16 03/16/25 10:42 BP 123/58 L 03/16/25 10:42 Pulse Ox 94 03/16/25 10:42 Oxygen Delivery Method Room Air 03/16/25 10:42 BMI result Body Mass Index 19.9 Assessment & Plan Assessment & Plan (1) Sacroiliac joint pain: Code(s): M53.3 - Sacrococcygeal disorders, not elsewhere classified Category: Medical Plan Plan - Schedule a diagnostic sacroiliac joint injection to assess pain relief and confirm diagnosis of SI joint dysfunction. - If diagnostic injection is effective, plan for cortisone injection into the sacroiliac joint. - Order physical therapy to address mobility and pain management. Patient was informed and verbally consented to the use of an ambient scribe for clinic note documentation during this visit. Discussion Notes I discussed with the patient the likelihood that his pain is related to sacroiliac joint dysfunction, given the positive physical exam findings and history of ineffective hip injections. We reviewed the plan to perform a diagnostic injection into the SI joint to confirm this diagnosis. If the injection provides significant relief, we will proceed with a cortisone injection. I also recommended physical therapy to improve mobility and manage pain. Patient Instructions - Follow up with the clinic for scheduling the SI joint diagnostic injection. - Attend physical therapy sessions as scheduled to improve mobility and manage pain. - Monitor pain levels and report any changes or concerns to the healthcare provider. Orders: Orders PT Evaluation and Treatment 03/16/25 M53.3 - Sacrococcygeal disorders, not elsewhere classified Coding Level of Care Code New Pt Level 4 (45796) Diagnoses Sacroiliac joint pain M53.3
[2025-03-16 10:42] VITALS: BP 123/58; PULSE 68; RESP 16; O2SAT 94; BMI 19.9
--- OUTSIDE RECORDS SUMMARY | 2025-03-16 11:27 | XMS_ITS | Encounter Summary ---
Author Organization [facility], Address [address] [place] [address] Phone Care Team Providers Care Banquet Food Server Name Role Phone Rhea Martinez MD Primary Care Provider [phone] Encounter Details Date Type Department Care Team (Late st Contact Info) Description 07/06/2022 Documentation Only [facility], [address] [place] [address] Rico Lamb MD [address] [place] [address] [place] [address] Social History Tobacco Use Types [...] Visit [facility] [address] [place] [address] Rico Lamb MD [address] [place] [address] [place] [address] documented as of this encounter Visit Diagnoses Not on filedocumented in this encounter Care Teams Banquet Food Server Relationship Specialty Start Date End Date Rhea Martinez MD [facility] [place] [address] [place] PCP - General 07/08/19 documented as of this encounter
--- OUTSIDE RECORDS SUMMARY | 2025-03-16 11:27 | XMS_ITS | Clinical Summary ---
Author Organization [employer] Address [address] [facility] [address] [place] [address] Care Team Providers Care Specification Manager Name Role Phone Unavailable Primary Care Provider [...] 2024 10/23/2023, 08/14/2022, 07/11/2021, Additional history exists Dental X-Ray: Bitewings 12/21/2024 12/21/2023 Tobacco Screening 01/08/2025 01/09/2024 Influenza Vaccine (#1) 2025 , 06/27/2022, 06/20/2021, Additional history exists DTaP/Tdap/Td Vaccines (2 - Td or Tdap) [...] Payer (Ef fective 2022-Present) Name:Simone Quintana Member ID:[id number] Relation to Subscriber:Self Name:Simone Quintana Subscriber ID:[id number] Payer ID:STATE Group ID:Not on file Type:Medicare Address: [facility] [address] [address] [place]
== END 2025-03-16 11:22 | disposition home or self-care (01) ==
LOC: HO.PMC 10:37
PROVIDERS: PCP Internal Medicine; Referring Provider Physician Assistant; Visit Provider Internal Medicine
DX: M53.3 Sacrococcygeal disorders, not elsewhere classified (principal)
CPT/HCPCS: 99204

== ENCOUNTER → 2025-03-16 10:36 | Outpatient (BNVA) | payer MEDICARE, OTHER, SELFPAY | PROVIDERS: PCP Internal Medicine; Referring Provider Physician Assistant; Visit Provider Internal Medicine | DX: M53.3 Sacrococcygeal disorders, not elsewhere classified (principal) | CPT/HCPCS: 99202 ==

== ENCOUNTER 2025-04-02 06:27 | Outpatient (REF) | payer MEDICARE, OTHER, SELFPAY ==
--- NOTE | ~2025-04-02 | FL_ITS ---
EXAMINATION: FL GUIDANCE ONLY HISTORY: M53.3 - Sacrococcygeal disorders, not elsewhere classified COMPARISON: None available. TECHNIQUE: Fluoroscopy time: 0.1 minute. Cumulative Dose: 2.94 mGy. DAP: 0.0257 mGym2 Images: 2. FINDINGS: Fluoroscopic spot films of the right hemipelvis demonstrate a needle in the region of the sacroiliac joint. FL/FL guidance in treatment room IMPRESSION: Fluoroscopy during procedure. Please see procedure report for additional information. Electronically signed by: Dylan Alfonso MD 04/02/2025 01:46 PM EDT
--- OUTSIDE RECORDS SUMMARY | 2025-04-02 06:30 | XMS_ITS | Patient Health Record ---
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 Role Phone Rhea Martinez Primary Care Provider UnavailRachele Andersen Unavailable [phone] David Ndiaye Unavailable [phone] Vivienne Greene Unavailable [phone] Allergies Allergen (clinical drug ingredient) Drug/Non Drug Allergy documented on EMR Reaction Allergy Type Onset Date Status acetaminophen Tylenol Unknown Drug Allergy Act john Cortisone raises BP Drug Allergy Active Results Component Value Reference Range Notes HEMOGLOBIN A1C (GLYCOHEMOGLO BIN) Reviewed date:08/25/2024 02:20:14 PM Interpretation: Performing Lab: Notes/Report: TOTAL HEMOGLOBIN (HGBA1C) 7.6 HEMOGLOBIN A1C (GLYCOHEMOGLO BIN) Reviewed date:11/14/2024 01:42:13 PM Interpretation: Performing Lab: Notes/Report: HEMOGLOBIN A1C % (HH) 8.2 HEMOGLOBIN A1C (GLYCOHEMOGLO BIN) Reviewed date:02/13/2025 01:40:45 PM Interpretation: Performing Lab: Notes/Report: HEMOGLOBIN A1C % (HH) 7.6 Reason For Referral No Information Medications Medication SIG (Take, Route, Frequency, Duration) Notes Start Date End Date Status Bethanechol Chloride Active Extra Depth Diabetic Shoes with 3 Pair Custom heat-molded multi-density innersoles for 1 year Dx: Active albuterol Active Potassium Active Carvedilol 25 MG 1 tablet with food Oral Twice a day; Duration: 30 days Active Insulin Active Gabapentin Active carBAMazepine Active Breo Ellipta Active Extra Depth Diabetic Shoes with 3 Pair Custom heat-molded multi-density innersoles for 1 year Dx: 09/20/2022 Not-Taking Rosuvastatin Calcium Active Spiriva HandiHaler A ctive Lisinopril Active Immunizations Vaccine Route Administration Date Status Comme nts Influenza Unknown 06/30/2022 Administered Influenza Unknown 06/03/2023 Administered Influenza Unknown 06/03/2024 Administered COVID-19 Pfizer BioNTech Vaccine Unknown 07/11/2022 Administered 2020,2020 2020 unsure dates Social History Tobacco Use: Social History Observation Description Date Details (start date - stop date) Never Smoker NA - NA Tobacco use other than smoking: Question Answer Notes Are you an other tobacco user? No Tobacco Control (Standard) Question Answer Notes Tobacco use: Nonsmoker Additional Findings: Tobacco non-user Current no nsmoker AUDIT-C (Standard) Question Answer Notes Did you have a drink containing alcohol in the p ast year? No Points 0 Interpretation Negative Problems Problem Type SNOMED Code ICD Code Onset Dates Problem Status W/U Status Risk Notes Problem Polyneuropathy due to type 2 diabetes mellitus (631635739) Type 2 diabetes mellitus with diabetic polyneuropathy (E11.42) Active confirmed Problem Acquired hammer toe of right foot (4429075198952951 ) Other hammer toe(s) (acquired), right foot (M20.41) Active confirmed Response to treatment, Improvemen t Problem Acquired hammer toe of left foot (4710350531901727 ) Other hammer toe(s) (acquired), left foot (M20.42) Active confirmed Response to treatment, Improvemen t Vital Signs Blood pressure diastolic 80 mm Hg 02/13/2025 Height 5ft 3in in 02/13/2025 Blood pressure systolic 120 mm Hg 02/13/2025 Weight 109 lbs 02/13/2025 BMI 19.31 kg/m2 02/13/2025 Procedures Procedure Date Ordered Date Performed Result Body Sit e 38053-IKOBPCO NAIL, 6 OR MORE 08/25/2024 N/A 64053-FXNO SKIN LESIONS, OVER 4 08/25/2024 N/A Encounters Encounter Location Date Provider Diagnosis [facility] [address] [place] [address] 06/02/2024 David Ndiaye Other viral warts B07.8 [...] right foot M20.41 and Ingrowing nail L60.[address] [address] 08/25/2024 Vivienne Jc Type 2 diabetes mellitus with diabetic polyneuropathy E11.42 ; Tinea unguium B35.1 ; Other hammer toe(s) (acquired), right foot M20.41 and Other hammer toe(s) (acquired), left foot M20.[address] [address] 11/14/2024 Rachele Uribe Type 2 diabetes mellitus with diabetic polyneuropathy E11.42 and Tinea unguium B35.[address] [address] 02/13/2025 Rachele Uribe Type 2 diabetes mellitus with diabetic polyneuropathy E11.42 and Tinea unguium B35.[address] [address] 07/03/2024 David Ndiaye Type 1 diabetes mellitus [...] E11.42) 11/14/2024 Tinea unguium (ICD-10 - B35.1) 02/13/2025 Type 2 diabetes mellitus with diabetic polyneuropathy (ICD-10 - E11.42) 02/13/2025 Tinea unguium (ICD-10 - B35.1) 08/25/2024 Other [...] M79.675) 06/02/2024 Tinea unguium (ICD-10 - B35.1) 06/02/2024 Skin disease (ICD-10 - L98.9) 06/02/2024 Other hammer toe(s) (acquired), left foot (ICD-10 - M20.42) 06/02/2024 Other hammer toe(s) (acquired), right foot (ICD-10 - M20.41) 06/02/2024 Ingrowing nail (ICD-10 - L60.0) Plan Of Treatment Pending Test Test Name Order Date 89178-OMVXNZE NAIL, 6 OR MORE 08/25/2024 22732-PYHY SKIN LESIONS, OVER 4 08/25/20 24 98221-LGZO SKIN LESIONS, OVER 4 09/20/19 46944-TMFE SKIN LESIONS, OVER 4 11/24/19 23 36889-SGIV SKIN LESIONS, 2 TO 4 02/02/20 Next Appt Details Provider Name:Rachele cannon, 05/22/2025 01:30:00 PM, [address] [place] [address], [place], [address], Insurance Providers Payer Name Payer Address Payer Phone Subscriber Number Group Number Insured Name Patient Relationship to Insured Coverage Start Date Coverage End Date Medicare National [employer] [address] [place] [address] [id number] Simone Mir Self - patient is the insured Medical (General) History Medical History History ICD Code Arthritis Back,Hip,and Knee pain Broken bones CAD (Cholesterol) type I diabetes Gall bladder problems Heart disease High blood pressure Kidney disease Lung disease COPD Surgical History Surgery Date(Month/Year) appendectomy Gall bladder removal hernia surgery Orthopedic Surgery- hip, elbow, leg Hospitalization History Reason Date(Month/Year[place] [facility]
--- OUTSIDE RECORDS SUMMARY | 2025-04-02 06:30 | XMS_ITS | Patient Health Record ---
Author Organization [facility] Address [address] [place] [address] Care Team Providers Care Police Chief Name Role Phone Rhea Martinez MD Primary Care Provider Dylan Ayala Unavailable [phone] Reason For Referral No Information Medications Medication SIG (Take, Route, Frequency, Duration) Notes Start Date End Date Status Breo Ellipta Active Albuterol Active Aspir-81 Active Spiriva HandiHaler A ctive Ventolin HFA Not-[place] ing Contour Next Test Ac tive Centrum Men Active Vitamin D Active NovoLOG Active Rosuvastatin Calcium Active Lisinopril Active Gabapentin Active carBAMazepine ER Act john Immunizations Vaccine Route Administration Date Status Comme nts Influenza Unknown 06/04/2019 Administered Social History Tobacco Use: Social History Observation Description Date Details (start date - stop date) Former Smoker NA - NA Tobacco Use/Smoking Question Answer Notes Patient is a former smoker How long has it been since you last smoked? > 10 years Alcohol Screen Question Answer Notes Did you have a drink containing alcohol in the p ast year? No Points 0 Interpretation Negative Section Notes: Nonsmoker; No alcohol Problems Problem Type SNOMED Code ICD Code Onset Dates Problem Status W/U Status Risk Notes Problem [id number] Encounter for screening for malignant neoplasm of colon (Z12.11) Active confirmed Problem 13703010 Constipation, unspecified constipation type (K59.00) Active confirmed Plan Of Treatment Future Test Test Name Order Date COLONOSCOPY 06/04/2020 Insurance Providers Payer Name Payer Address Payer Phone Subscriber Number Group Number Insured Name Patient Relationship to Insured Coverage Start Date Coverage End Date MEDICARE OF [place] ERIKA ANA [address] [address] [id number] GAVIOTA MCKINNEY Self - patient is the insured MEDICAID OF [employer] [address] [place] [phone] [id number] GAVIOTA MCKINNEY Self - patient is the insured Medical (General) History Medical History History ICD Code Hyperlipidemia Hypertension IDDM--has an Insulin pump COPD Denies [place] nor CVA Sees a liquor inspector for proteinuria Constipation Neg. screening colonoscopy in 01/2010 Decreased vision right eye Surgical History Surgery Date(Month/Year) cholecystectomy appendectomy orthopedic surgeries umbilical hernia repair Retina laser surgery both eyes
--- OUTSIDE RECORDS SUMMARY | 2025-04-02 06:30 | XMS_ITS | Clinical Summary ---
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
--- OUTSIDE RECORDS SUMMARY | 2025-04-02 06:30 | XMS_ITS | Clinical Summary ---
Author Organization [facility] Address [address] [place] [id number] Phone Care Team Providers Care Tufting Supervisor Name Role Phone Rhea Martinez MD Unavailable [phone] Kristy Mcbride MD Unavailable [phone] Rhea Martinez MD Primary Care Provider [phone] Allergies Active Allergy Reactions Criticality Noted Date Comments Cortisone 10/09/2023 Severe hyperglycemia Duloxetine Unknown 12/20/2016 Pregabalin Unknown 12/20/2016 Medications albuterol 90 mcg/actuation inhaler 2 puffs as needed Ac tive aspirin 81 MG EC tablet 1 tablet Active fluticasone furoate-vilantero L (BREO ELLIPTA) 100-25 mcg/dose inhaler Inhale 1 puff into the lungs daily. Active gabapentin (NEURONTIN) 100 MG capsule 2 (two) times a day. Active acetone, urine, test Strp as directed 01/18/20 12 Active lisinopril (PRINIVIL,ZESTRIL ) 40 MG tablet 1 tablet Activ e metoclopramide HCl (REGLAN) 5 MG tablet Active polyethylene glycol (MIRALAX) 17 gram/dose powder Active insulin pump syringe 3 mL Misc as directed 03/02/20 14 Active infusion set for insulin pump (MINIMED INFUSION SET) ISet as directed 03/02/20 14 Active tiotropium (SPIRIVA HANDIHALER) 18 mcg inhalation capsule 1 capsule by mouth A ctive cholecalciferol (VITAMIN D3) 1,000 unit tablet 1 tablet Ac tive Medication-Free Text MEDICAL CANNIBIS Act john rosuvastatin (CRESTOR) 40 MG tablet Take 40 mg by mouth daily. 08/20/20 19 Active sildenafil (VIAGRA) 100 mg tablet TAKE 1 TABLET BY MOUTH ONCE DAILY NEEDED 08/21/20 19 Active triamcinolone acetonide 0.5 % cream 06/15/20 20 Active carBAMazepine (TEGRETOL XR) 200 MG 12 hr tablet Take 200 mg by mouth nightly at bedtime. at bedtime. 10/22/19 21 Active HYDROcodone-aceta minophen (NORCO) 5-325 mg per tablet Take 1 tablet by mouth daily as needed. 09/21/19 21 Active tamsulosin (FLOMAX) 0.4 mg Cap Take 0.4 mg by mouth. 01/04/20 21 Active BETHANECHOL CHLORIDE ORAL Take by mouth 2 (two) times a day. 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 2 each 3 12/29/19 22 Active ACCU-CHEK GUIDE TEST STRIPS Strp stripsIndications :Diabetes mellitus type 1,Insulin pump in place Use Up to 4 times daily for blood sugar monitoring/CGM calibration E10.40 E10.51 400 strip 3 05/04/20 23 Active carvedilol (COREG) 3.125 MG tablet Take 3.125 mg by mouth 2 (two) times a day with meals. Active MYRBETRIQ 25 mg Tb24 Take 1 tablet by mouth every morning. 09/20/19 24 Active SENNA 8.6 mg tablet Take 2 tablets by mouth nightly at bedtime. 02/05/20 24 Active LANTUS SOLOSTAR U-100 INSULIN 100 unit/mL (3 mL) InPn injection penIndications:Ty pe 1 diabetes mellitus with stable proliferative retinopathy of both eyes,Type 1 diabetes mellitus with diabetic neuropathy Inject 18 Units under the skin daily. For use in case of insulin pump failure. E10.42 6 mL 5 07/14/20 24 Active insulin pen needles, disposable, 32 gauge x NdleIndications:T ype 1 diabetes mellitus with stable proliferative retinopathy of both eyes,Type 1 diabetes mellitus with diabetic neuropathy 1 each by Miscellaneous route daily. For use with insulin pen in case of pump failure. E10.42 30 each 5 07/14/20 24 Active insulin syringe-needle U-100 0.3 mL 31 gauge x 15/64 SyrgIndications:T ype 1 diabetes mellitus with stable proliferative retinopathy of both eyes,Type 1 diabetes mellitus with diabetic neuropathy 1 each by Miscellaneous route 3 (three) times a day before meals. For administration of mealtime insulin in case of insulin pump failure or pump malfunction resulting in hyperglycemia. E10.42 30 each 5 07/14/20 24 Active finasteride (PROSCAR) 5 mg tablet Take 1 tablet by mouth every morning. 08/04/20 24 Active NOVOLOG U-100 INSULIN ASPART 100 unit/mL injection vialIndications:T ype 1 diabetes mellitus with stable proliferative retinopathy of both eyes,Type 1 diabetes mellitus with diabetic peripheral angiopathy without gangrene,Type 1 diabetes mellitus with diabetic neuropathy,Insuli n pump in place Inject 70 Units under the skin daily. Via insulin pump DX:E10.40 70 mL 3 11/19/19 25 Active Active Problems Problem Noted Date Diagnosed Date Hypertensive disorder 02/06/2020 Assessment & Plan (10/13/2024 4:08 PM EST): Blood pressure control is borderline Continues on regimen which includes ACEi Maintaining good blood pressure and blood sugar control will help reduce progression of diabetic eye and kidney disease Follows with nephrology Assessment & Plan (04/11/2024 2:43 PM EDT): Blood pressure control is at target today but borderline Continues on regimen which includes ACEi Maintaining good blood pressure and blood sugar control will help reduce progression of diabetic eye and kidney disease Follows with nephrology Assessment & Plan (10/11/2023 8:52 PM EST): Blood pressure control is very good today Continues on regimen which includes ACEi Maintaining good blood pressure and blood sugar control will help reduce progression of diabetic eye and kidney disease Assessment & Plan (04/05/2023 12:27 PM EDT): Systolic blood pressure today is slightly elevated, 148/80 A mildly stressful morning getting here on time Continue present regimen which includes ACEi Assessment & Plan (10/02/2022 2:16 PM EST): Blood pressure control is good Continues on regimen which includes ACEi Assessment & Plan (03/31/2022 1:36 PM EDT): Blood pressure control is good Continues on regimen which includes ACEi Assessment & Plan (09/29/2021 1:19 PM EST): Blood pressure control is excellent Continues on regimen which includes ACEi Hyperlipidemia 09/07/2017 Assessment & Plan (10/13/2024 4:10 PM EST): LDL goal is <70, we do not have most recent lipid panel available for review today, Simone reports that labs are up to date with PCP Continues on high intensity statin therapy Assessment & Plan (04/11/2024 2:44 PM EDT): LDL goal is <70, most recent lipid panel on file reviewed, this is from March 2021, LDL was at goal at that time Routine labs are up to date with PCP per Simone Continues on high intensity statin therapy Assessment & Plan (10/11/2023 8:53 PM EST): LDL goal is <70, most recent lipid panel on file reviewed, this is from March 2021, LDL was at goal at that time Continues on high intensity statin therapy Assessment & Plan (04/05/2023 12:39 PM EDT): LDL goal is <70, most recent lipid panel on file reviewed, this is from March 2021, LDL was at goal at that time Continues on high intensity statin therapy Assessment & Plan (10/02/2022 2:18 PM EST): LDL goal is <70, most recent lipid panel on file reviewed, this is from March 2021, LDL was at goal at that time Continues on high intensity statin therapy Assessment & Plan (03/31/2022 1:39 PM EDT): LDL goal is <70, most recent lipid panel on file reviewed, this is from March 2021, LDL was at goal at that time Continues on high intensity statin therapy Assessment & Plan (09/29/2021 1:17 PM EST): LDL goal is <100, we don't have most recent labs to review today Simone reports some concern that his LDL is not at goal Continues on high intensity statin therapy, may benefit from addition of Zetia Assessment & Plan (03/29/2021 1:28 PM EDT): LDL goal is <100, we don't have most recent labs to review today Simone reports some concern that his LDL is not at goal Continues on high intensity statin therapy, may benefit from addition of Zetia Assessment & Plan (09/06/2020 10:41 PM EST): LDL goal is <100, we don't have most recent labs to review today Simone reports some concern that his LDL is not at goal Continues on high intensity statin therapy, we discussed that if additional LDL lowering is required this can be achieved by addition of Zetia Assessment & Plan (09/30/2019 8:28 PM EST): LDL goal is <100 Continues on high intensity statin therapy Assessment & Plan (06/24/2019 9:26 PM EDT): LDL goal is <100 Continues on high intensity statin therapy Assessment & Plan (03/25/2019 10:19 PM EDT): Continues on statin therapy at max dose, high intensity statin No lipid data available for review LDL goal is <100, if not achieved on current statin dosage then consider addition of zetia Assessment & Plan (12/24/2018 11:21 PM EDT): Reports elevated cholesterol (not available for review today), on highest dose of crestor currently We discussed likely addition of Zetia if LDL remains above goal on current crestor dosage Assessment & Plan (09/19/2018 9:26 PM EST): Continues on high intensity statin therapy No recent lipid panel on file, LDL goal <100 Assessment & Plan (09/07/2017 12:00 PM EST): Most recent lipid panel is from December 2016, LDL in good control at 79, HDL is also optimal Currently on moderate dosage of Crestor and tolerating well Chronic obstructive pulmonary disease 09/07/2017 Type 1 diabetes mellitus wit h stable proliferative retinopathy of both eyes 09/07/2017 Assessment & Plan (10/13/2024 4:16 PM EST): Eye care is up to date Blood pressure is in desired range today but borderline Blood sugar remains in very good control with modest variability in most recent two week period and large percentage of blood sugars in target range Assessment & Plan (04/11/2024 2:44 PM EDT): Eye care is up to date Blood pressure is in desired range today but borderline Blood sugar remains in very good control with modest variability and large percentage of blood sugars in target range Assessment & Plan (04/05/2023 12:39 PM EDT): Eye care is up to date, unfortunately visual acuity continues to worsen Blood pressure is unusually and only slightly high today likely due to stress of rushing this morning Blood sugar remains in very good control with modest variability and large percentage of blood sugars in target range Assessment & Plan (10/02/2022 2:23 PM EST): Eye care is up to date, unfortunately visual acuity has worsened Blood pressure is in desired range today Blood sugar remains in very good control with modest variability and large percentage of blood sugars in target range Assessment & Plan (03/31/2022 1:39 PM EDT): Eye care is up to date Blood pressure is at upper end of desired range today Blood sugar remains in very good control with modest variability and large percentage of blood sugars in target range Assessment & Plan (03/29/2021 1:28 PM EDT): Eye care is up to date Blood pressure is well controlled Blood sugar remains in very good control with modest variability and large percentage of blood sugars in target range Assessment & Plan (09/06/2020 10:48 PM EST): Eye care is up to date Blood pressure is well controlled Blood sugar remains in very good control with modest variability and large percentage of blood sugars in target range Assessment & Plan (09/30/2019 8:26 PM EST): Eye care is up to date Blood pressure is well controlled Blood sugar remains in very good control with modest variability and large percentage of blood sugars in target range Assessment & Plan (06/24/2019 9:29 PM EDT): Eye care is up to date Blood pressure is well controlled Blood sugar remains in very good control with modest variability and large percentage of blood sugars in target range Assessment & Plan (03/25/2019 10:17 PM EDT): Eye care is up to date Blood pressure is under good control Blood sugar patterns indicate modest variability Assessment & Plan (12/24/2018 11:23 PM EDT): Eye care up to date Blood pressure well controlled Blood sugar in excellent control with little variability in Automode Assessment & Plan (09/19/2018 9:15 PM EST): Having vision changes Routine eye care is consistent and up to date Blood pressure is well controlled Assessment & Plan (09/07/2017 12:02 PM EST): Routine eye care is up to date and blood pressure is well controlled, blood pressure control is important in reducing progression of diabetic eye disease Insulin pump in place 09/06/2017 Overview (10/11/2023): Pump and CGM upgrade done fall 2022 to Medtronic 780G and G4 Assessment & Plan (10/13/2024 4:12 PM EST): Current insulin pump setting Time Basal Rates? Time ICR Time ISF Time Target IOB 12am Auto u/hr 12am 13 12am 75 12am 100 mg/dl 4 hrs 7am 13 5am 60 OR 12pm 12 10pm 75 5pm 17 12am 0.900 3am 1.00 7am 0.550 10am 0.475 5pm 0.600 9pm 0.650 TOTAL 16.025u/day We did not adjust insulin pump settings today, these continue to be effective for Simone and most recent CGM data indicates excellent control with TIR at target We discussed consideration for insulin dosing if Simone requires steroid therapy in the future, advised that this tends to affect prandial glucose more so overestimation of carb counts for more aggressive calculations would be advisable over permanent changes to insulin pump infusion settings, we discussed a 50% increase in planned carb intake so that insulin delivery for actual planned intake would be more effective Encouraged to continue his excellent self management efforts and to contact me with any questions or concerns Simone will return every 3 months for Medicare pump/CGM coverage criteria Assessment & Plan (04/11/2024 2:50 PM EDT): Current insulin pump setting Time Basal Rates? Time ICR Time ISF Time Target IOB 12am Auto u/hr 12am 13 12am 75 12am 100 mg/dl 4 hrs 7am 13 5am 60 OR 12pm 12 10pm 75 5pm 17 12am 0.900 3am 1.00 7am 0.550 10am 0.475 5pm 0.600 9pm 0.650 TOTAL 16.025u/day We did not adjust insulin pump settings today, these continue to be effective for Simone We reviewed CGM data together, patterns continue to be very reassuring, though most recent TIR is a bit lower than Simone's usual We discussed temp target for shopping trips as this seems to consistently lead to lows, we reviewed how to set this today Encouraged to continue his excellent self management efforts and to contact me with any questions or concerns Simone will return every 3 months for Medicare pump/CGM coverage criteria Assessment & Plan (10/11/2023 8:56 PM EST): Current insulin pump setting Time Basal Rates? Time ICR Time ISF Time Target IOB 12am Auto u/hr 12am 13 12am 75 12am 100 mg/dl 6 hrs 7am 13 5am 60 OR 12pm 12 10pm 75 5pm 17 12am 0.900 3am 1.00 7am 0.550 10am 0.475 5pm 0.600 9pm 0.650 TOTAL 16.025u/day We did not adjust insulin pump settings today, these continue to be effective for Simone Continues to be mindful about infusion set rotation and site selection due to lipohypertrophy/scarring We reviewed CGM data together, patterns continue to be very reassuring, though most recent TIR is lower than Simone's usual Encouraged to continue his excellent self management efforts and to contact me with any questions or concerns Assessment & Plan (04/05/2023 12:35 PM EDT): Current insulin pump setting Time Basal Rates? Time ICR Time ISF Time Target IOB 12am Auto u/hr 12am 13 12am 75 12am 100 mg/dl 6 hrs 7am 13 5am 60 OR 12pm 12 10pm 75 5pm 17 12am 0.900 3am 1.00 7am 0.550 10am 0.475 5pm 0.600 9pm 0.650 TOTAL 16.025u/day We did not adjust insulin pump settings today, these continue to be effective for Simone We briefly reviewed major features of Medtronic 780G, We reviewed CGM data together, patterns continue to be very reassuring Encouraged to continue taking insulin prior to meals for best effect, a small snack mid-afternoon if he is outside more and active with yardwork Assessment & Plan (10/02/2022 2:23 PM EST): Current insulin pump setting Time Basal Rates? Time ICR Time ISF Time Target IOB 12am Auto u/hr 12am 13 12am 75 12am 100 mg/dl 6 hrs 7am 13 5am 60 OR 12pm 12 10pm 75 5pm 17 12am 0.900 3am 1.00 7am 0.550 10am 0.475 5pm 0.600 9pm 0.650 TOTAL 16.025u/day We did not adjust insulin pump settings today, these continue to be effective for Simone We discussed infusion set issues, Simone may have been sent AUGUSTO infusion sets 9mm length cannula, he is advised to contact [facility] to discuss his order since we don't have information on the particular infusion set provided, he certainly does not require an infusion set longer than 6mm and is advised to request this We reviewed CGM data together, patterns continue to be very reassuring Encouraged to continue taking insulin prior to meals for best effect Assessment & Plan (03/31/2022 1:42 PM EDT): Current insulin pump setting Time Basal Rates? Time ICR Time ISF Time Target IOB 12am Auto u/hr 12am 13 12am 75 12am 100 mg/dl 6 hrs 7am 13 5am 60 OR 12pm 12 10pm 75 5pm 17 12am 0.900 3am 1.00 7am 0.550 10am 0.475 5pm 0.600 9pm 0.650 TOTAL 16.025u/day We did not adjust insulin pump settings today We reviewed CGM data together, patterns are very reassuring Encouraged to continue taking insulin prior to meals for best effect Assessment & Plan (09/29/2021 1:18 PM EST): Current insulin pump setting Time Basal Rates? Time ICR Time ISF Time Target IOB 12am Auto u/hr 12am 13 12am 75 12am 10 mg/dl 6 hrs 7am 13 5am 60 OR 12pm 12 10pm 75 5pm 17 12am 0.900 3am 1.00 7am 0.550 10am 0.475 5pm 0.600 9pm 0.650 TOTAL 16.025u/day We did not adjust insulin pump settings today We reviewed CGM data together Encouraged to continue taking insulin prior to meals for best effect Assessment & Plan (03/29/2021 1:27 PM EDT): Current insulin pump setting Time Basal Rates Time ICR Time ISF Time Target IOB 12am Automode 12am 13 12 am 75 12 am 100mg/dl 6hrs 7am 13 5am 60 Manual mode 12pm 12 10pm 75 12am 0.9u/hr 5pm 17 3am 1.0u/hr 7am 0.55u/hr 10am 0.475u/hr 5pm 0.6u/hr 9pm 0.65u/hr We did not adjust insulin pump settings today We reviewed CGM data together Encouraged to continue taking insulin prior to meals for best effect Assessment & Plan (09/06/2020 10:46 PM EST): Current insulin pump setting Time Basal Rates Time ICR Time ISF Time Target IOB 12am Automode 12am 13 12 am 75 12 am 100mg/dl 6hrs 7am 13 5am 60 Manual mode 12pm 12 10pm 75 12am 0.9u/hr 5pm 17 3am 1.0u/hr 7am 0.55u/hr 10am 0.475u/hr 5pm 0.6u/hr 9pm 0.65u/hr We did not adjust insulin pump settings today We reviewed CGM data together Encouraged to continue prebolusing prior to morning meal and taking additional insulin to manage the effects of coffee Assessment & Plan (12/30/2019 1:48 PM EDT): Current insulin pump setting Time Basal Rates? Time ICR Time ISF Time Target IOB 12am Auto u/hr 12am 13 12am 75 12am 100 mg/dl 6 hrs 12pm 12 5am 60 OR 5pm 17 10pm 75 ManualMode 12am 0.9u/hr 3am 1.0 7am 0.55 10am 0.475 5pm 0.6 9pm 0.65 We did not adjust insulin pump settings today Assessment & Plan (09/30/2019 8:20 PM EST): No changes made in insulin pump settings today We discussed pay close attention to rise in blood sugars after morning and midday meals, this may require a small adjustment in I:C ratios to reduce rise in blood sugar Assessment & Plan (06/24/2019 9:27 PM EDT): Current insulin pump setting Time Basal Rates? Time ICR Time ISF Time Target IOB 12am Auto u/hr 12am 1:13 12 am 1:75 12 am 100 mg/dl 6 hrs 12pm 12 5a 60 OR 5p 17 10p 75 ManualMode 12am 0.9u/hr 3am 1.0 7am 0.55 10am 0.475 5pm 0.6 9pm 0.65 No changes made to insulin pump settings Assessment & Plan (03/25/2019 10:13 PM EDT): We did not adjust insulin pump settings today Overall time in range is very good, hypoglycemia frequency is modest Assessment & Plan (12/24/2018 11:22 PM EDT): We did not adjust Simone's insulin pump settings today Will monitor effects of exercise/activity on blood sugar Assessment & Plan (09/19/2018 9:14 PM EST): Current insulin pump setting Time Basal Rates Time ICR Time ISF Time Target IOB 12am Automode 12am 1:17 12 am 1:75 12 am 100mg/dl 6hrs 7am 1:13 5am 1:60 Manual mode 12pm 1:12 10pm 1:75 12am 0.9u/hr 5pm 1:17 3am 1.0u/hr 7am 0.55u/hr 10am 0.475u/hr 5pm 0.6u/hr 9pm 0.65u/hr No changes made in insulin pump settings today Assessment & Plan (09/07/2017 12:00 PM EST): Changes made in pump settings as noted above Type 1 diabetes mellitus with diabetic neuropath y 09/06/2017 Overview (09/19/2018): DIABETES HISTORY Diagnosis - type 1 diabetes, dx at age 6 Treatment history - insulin pump approximately early ; upgrade to Medtronic 670G with [employer] obrat[employer]h zadach, March 2018 Assessment & Plan (10/13/2024 4:15 PM EST): Overall glucose control per Simone's CGM report is back in excellent range with low rate of hyper- and hypoglycemia and percentage of data at target range, 73% in the most recent two week period, encouraged to continue his excellent efforts We reviewed consideration for adjustments to mealtime dosing in case he requires steroid therapy again We also discussed glucose control targets in case THR is recommended by his orthopedic surgeon, currently Simone would meet criteria as his control is excellent, A1c will need to be <8% however the most recent value in low 8% range is higher than usual for Simone and likely reflected period of higher glucose due to steroid therapy effect Smione is encouraged to continue to do his best with healthy eating and staying active Simone is encouraged to call with any questions or concerns, he will return in 3 months to meet with Laura Parham and in 6 months to meet with sd Assessment & Plan (04/11/2024 2:47 PM EDT): Overall glucose control per Simone's CGM report continues to be in excellent range with low rate of hyper- and hypoglycemia and percentage of data near target range, 64% in the most recent two week period, encouraged to continue his excellent efforts We reviewed use of Temp Target during shopping trips as this consistently causes issues with lows, advised to set this prior to leaving to run errands/shop and also to try to use this when doing yard/house work Simone reports increased fatigue, advised to ensure his routine labs are UTD with PCP, may need TFTs and testosterone evaluated if not up to date Simone is encouraged to continue to do his best with healthy eating and staying active Simone is encouraged to call with any questions or concerns, he will return in 3 months to meet with Laura Parham and in 6 months to meet with me Assessment & Plan (10/11/2023 8:59 PM EST): Overall glucose control per Simone's CGM report continues to be in excellent range with low rate of hyper- and hypoglycemia and high percentage of data in target range, 71% in the most recent two week period, encouraged to continue his excellent efforts Simone is encouraged to continue to do his best with healthy eating and staying active, his lifestyle is a bit different as he is not driving anymore, so his activities related to errands and such are lower than in the past, despite this change Simone's overall impact on glucose patterns has been minimal Simone is encouraged to call with any questions or concerns, he will return in 3 months to meet with Roxy Morgan and in 6 months to meet with me Assessment & Plan (04/05/2023 12:31 PM EDT): Overall glucose control per Simone's CGM report continues to be in excellent range with low rate of hyper- and hypoglycemia and high percentage of data in target range, encouraged to continue his great efforts Simone is encouraged to continue to do his best with healthy eating and staying active, spending more time outdoors with warmer weather, encouraged to keep small snack on hand if he gets too busy to prevent lows mid-afternoon with increased activity Simone's overall impact on glucose patterns has been minimal Simone is encouraged to call with any questions or concerns, he will return in 3 months to meet with Roxy Morgan and in [address] Rae Wagner Assessment & Plan (10/02/2022 2:21 PM EST): Overall glucose control per Simone's CGM report continues to be in excellent range with low rate of hyper- and hypoglycemia and high percentage of data in target range, encouraged to continue his excellent efforts Simone is encouraged to continue to do his best with healthy eating and staying active, his lifestyle is a bit different as he is not driving anymore, so his activities related to errands and such are lower than in the past, despite this change Simone's overall impact on glucose patterns has been minimal Simone is encouraged to call with any questions or concerns, he will return in 3 months to meet with Roxy Morgan and in 6 months to meet with me Assessment & Plan (03/31/2022 1:41 PM EDT): Overall glucose control per Simone's CGM report continues to be in excellent range with low rate of hyper- and hypoglycemia and high percentage of data in target range, encouraged to continue his excellent efforts Simone is encouraged to continue to do his best with healthy eating and staying active Simone is encouraged to call with any questions or concerns, he will return in 3 months to meet with Roxy Morgan and in 6 months to meet with me Assessment & Plan (03/29/2021 1:32 PM EDT): Overall glucose control per Simone's CGM report [...] in 6 months to meet with me Assessment & Plan (09/06/2020 10:52 PM EST): Overall glucose control per Simone's self report seems to continue to be in very good range with low rate of hyper- and hypoglycemia, encouraged to continue his excellent efforts Simone is encouraged to continue to do his best with healthy eating and staying active as he practices social distancing, encouraged to get COVID vaccine when available Simone is encouraged to call with any questions or concerns Assessment & Plan (12/30/2019 1:53 PM EDT): Overall glucose control per Simone's self report [...] to call with any questions or concerns Assessment & Plan (09/30/2019 8:21 PM EST): DPN 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 stable Regular follow up with podiatry Continues do do very well on Medtronic 670G in automode, we discussed sensor glucose patterns today and no changes were made to current insulin delivery settings Assessment & Plan (06/24/2019 9:33 PM EDT): DPN 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 stable Continues regular follow up with podiatry Continues do do very well on Medtronic 670G in automode Assessment & Plan (03/25/2019 10:16 PM EDT): Continues to do very well on Medtronic 670G in automode We did not make any changes in insulin delivery Encouraged to continue healthy lifestyle Advised to call with any questions or concerns Assessment & Plan (09/19/2018 9:29 PM EST): Simone is doing really well on Medtronic 670G in Automode, glucose variability is reasonable with large percentage of values in target range We did not make any adjustments in settings today Advised to continue healthy diet, encouraged to optimize activity Will return for routine follow up every 3 months per Medicare criteria for insulin pump therapy Encouraged to call with any questions or concerns Assessment & Plan (09/07/2017 11:52 AM EST): Discussed CGM patterns which show a tendency for elevated blood sugars overnight We made adjustments to basal rates in the evening and middle of the night with a slight increase at these times and a slight reduction in the refrigeration brazer/solderer hours to reduce risk of hypoglycemia at that time Advised to monitor blood sugars closely and call if he feels that overnight blood sugars remain high or if he notes more hypoglycemia Will be upgrading to Medtronic 670G insulin pump with Guardian CGM, we discussed this briefly today and the features which may benefit Simone, he will return to see Michelle Quesada for pump/CGM start when he receives this Type 1 diabetes mellitus wit h diabetic peripheral angiopathy without gangrene 09/06/2017 Assessment & Plan (04/05/2023 12:36 PM EDT): Peripheral tissues without recent trauma, neuropathy 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 stable Assessment & Plan (09/07/2017 11:54 AM EST): Peripheral tissues without recent trauma, neuropathy 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 stable Diabetes mellitus type 1 07/04/2017 Resolved Problems Problem Noted Date Diagnosed Date Resolved Date Fitting and adjustment of insulin pump 03/04/2018 09/29/2021 Encounters Date Type Department Care Team Description 02/09/2025 Telephone [facility] [address] [place] [address] [place] [address] Marisa Monsalve MA LMN FOR PUMP SUPPLIES 01/15/2025 Telephone [facility] [address] [place] [address] [place] [address] Marisa Monsalve MA CLINICAL NOTES 01/12/2025 1:00 PM EDT Nutrition [facility] [address] [place] [address] [place] [address] Kristy Mcbride MD Dawicki, Laura Valdez, ZHANNA 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); Insulin pump in place from Last 3 Months Immunizations Immunization Administration Dates Next Due COVID-19 (Pre-06/25) Pfizer Vaccine, mRNA, PF 12/13/2020,11/22/2020 Influenza Quadrivalent Preservative Free IM 06/03,06/18/2018 Influenza Quadrivalent w/ Preservative IM 2018,06/08/2017,06/06/2016 Influenza Trivalent w/ Preservative IM 1 Td (adult) 5 Lf Tetanus Toxo id, PF, Adsorbed 02/24/2013 Tdap 06/20/2021 Family History Medical History Relation Comments CV disease Father Diabetes mellitus Mother Emphysema Mother Osteoporosis Mother Rheumatoid arthritis Mother Cancer Sibling Cancer Sister 1 Cancer Sister 2 Diverticulitis Sister 2 Relation Status Comments Father Mother Sibling Sister 1 breast cancer Sister 2 breast cancer Social History Tobacco Use Types Packs/Day Years Used Date Smoking Tobacco: Former Cigarettes Q uit: 2004 Passive Smoke Exposure: Past Smokeless Tobacco: Never Tobacco Cessation:Counseling Given: No Alcohol Use Standard Drinks/Week Comments No 0 (1 standard drink = 0.6 oz pur e alcohol) Education Answer Date Recorded Are you interested in more education? Not on tyrone e 12/29/2022 Are you concerned about learning? Not on file 12/29/2022 No 12/29/2022 No 12/29/2022 Digital Access Answer Date Recorded No 01/29/2023 No 01/29/2023 Reliable internet access at home? Not on file 01/29/2023 Device with a working camera? Not on file Sex and Gender Information Value Date Recorded Sex Assigned at Not on file Legal Sex Male 9:49 PM EDT Gender Identity Not on file Sexual Orientation Not on file Last Filed Vital Signs Vital Sign Reading Time Taken Comments Blood Pressure 130/58 10/13/2024 1:38 PM EST Pulse 56 10/13/2024 1:38 PM EST Temperature 36.6 C (97.8 F) 10/08/2023 1:26 PM EST Respiratory Rate - - Oxygen Saturation 98% 10/13/2024 1:38 PM EST Inhaled Oxygen Concentration - - Weight 53.3 kg (117 lb 6.4 oz) 10/13/2024 1:38 P M EST Height 160 cm (5' 2.99 ) 10/13/2024 1:38 PM EST Body Mass Index 20.8 10/13/2024 1:38 PM EST Plan of Treatment Upcoming Encounters Date Type Department Care Team (Late st Contact Info) Description 04/13/2025 2:00 PM EDT Office Visit [facility] [address] [place] [address] [place] [address] Kristy Mcbride MD [address] [place] [id number] 07/20/2025 1:00 PM EST Nutrition [facility] [address] [place] [address] [place] [address] Kristy Mcbride MD [address] [place] [phone] Laura Parham, ZHANNA [address] [place] [phone] Health Maintenance Due Date Last Done Comments CARBAMAZEPINE (TEGRETOL) LEVEL 1959 DEPRESSION SCREENING 1971 HEPATITIS C SCREENING 1977 HIV ONE-TIME SCREENING (18-65 YEARS) 1977 PNEUMOCOCCAL VACCINES (50+ years) (1 of 2 - PCV) 1978 COLOGUARD 2004 COLONOSCOPY 2004 COLORECTAL CANCER SCREENING 2004 FIT TEST 2004 FOBT 2004 SIGMOIDOSCOPY 2004 VIRTUAL COLONOSCOPY 2004 DIABETIC EYE EXAM 07/04/2017 RSV VACCINE (1 - Risk 60-74 years 1-dose series) 2019 CREATININE LEVEL 12/26/2023 12/25/2022 POTASSIUM LEVEL 12/26/2023 12/25/2022 COVID-19 VACCINE ( season) 2024 10/23/2023, 08/14/2022, 07/11/2021, Additional history exists ABDOMINAL AORTIC ANEURYSM (AAA) SCREENING 2024 HEMOGLOBIN A1C 12/28/2024 09/29/2024, 07/3 09/2023, 12/24/2023, Additional history exists BLOOD PRESSURE 04/12/2025 10/13/2024 SMOKING Hx and SMOKELESS TOBACCO SCREENING 10/13/2025 10/13/2024 Adult Td,Tdap Booster 06/20/2031 06/20/2021, 013 ZOSTER VACCINES Completed 03/01/2023, 12/28/2022 HEPATITIS A VACCINES Aged Out No long er eligible based on patient's age to complete this topic HIB VACCINES Aged Out No longer eligi ble based on patient's age to complete this topic MENINGOCOCCAL VACCINES (ACWY) Aged Out No longer eligible based on patient's age to complete this topic MENINGOCOCCAL VACCINES (B) Aged Out N o longer eligible based on patient's age to complete this topic Goals Goal Patient Goal Type Associated Problems Recent Progress Patient-Stated? Author Increase physical activity Lifestyle No Michelle Quesada Note: Will increase exercise to 3 times per day Medical Devices Not on file Procedures Procedure Name Priority Date/Time Associated Diagnosis Comments HEMOGLOBIN A1C Routine 09/29/2024 11:14 AM EST Type 1 diabetes mellitus with diabetic neuropathy BASIC METABOLIC PANEL Routine 12/25/2022 2:05 PM EDT Chronic kidney disease, stage II (mild) Type 1 diabetes mellitus with diabetic neuropathy from Last 3 Months or Most Recently Relevant to Health Maintenance Results * (ABNORMAL) Hemoglobin A1c (09/29/2024 11:14 AM EST) HEMOGLOBIN A1C 8.2(H) 4.3 - 5.8 % [facility] Blood 09/29/2024 11:1 4 AM EST 09/29/2024 11:31 AM EST us Kristy Mcbride MD LAB BLOOD ORDERABLES Final Resu lt [facility] [address] [place] [address] * (ABNORMAL) Basic metabolic panel (12/25/2022 2:05 PM EDT) SODIUM 138 133 - 146 mmol/L [facility] CHLORIDE 102 96 - 108 mmol/L [facility] POTASSIUM 5.2(H) 3.3 - 5.1 mmol/L [facility] CO2 28 21 - 35 mmol/L [facility] BUN 29(H) 6 - 19 mg/dL [facility] CREATININE 1.50 0.5 - 1.5 mg/dL [facility] GLUCOSE 231(H) 70 - 99 mg/dL [facility] CALCIUM 9.2 8.4 - 10.3 mg/dL [facility] EGFR 52(L) >59 mL/min/1.7 3m2 [facility] Comment:Estimated glomerular filtration rate calculated using the CKD-EPI refit equation. ANION GAP 13 10 - 20 mmol/L [facility] Blood 12/25/2022 2:05 PM EDT 12/25/2022 2:08 PM EDT Rhea Martinez MD LAB BLOOD ORDERABLES Final Re sult [facility] [address] [place] [address] from Last 3 Months or Most Recently Relevant to Health Maintenance Insurance MEDICARE PART A & B [facility] MEDICARE PART A & B [facility] & [facility] & [facility] & [facility] & [facility] MED[facility] PART A & B [facility] MED[facility] PART A & [facility] Care Teams Tufting Supervisor Relationship Specialty Start Date End Date Rhea Martinez MD [address] [place] [phone] PCP - General Internal Medicine 07/04/17 Rhea Martinez MD [address] [place] [phone] Historical LMR Provider 06/18/17 Kristy Mcbride MD [address] [place] [address], [address] [place] [address] [email or web address] Historical LMR Provider 06/18/17 Additional Source Comments The information contained in this document represents components of the legal health record. It is not the complete legal health record.[facility]
--- OUTSIDE RECORDS SUMMARY | 2025-04-02 06:30 | XMS_ITS | Encounter Summary ---
Author Organization [facility], Address [address] [place] [address] Phone Care Team Providers Care Inside Polisher Name Role Phone Rhea Martinez MD Primary Care Provider [phone] Encounter Details Date Type Department Care Team (Late st Contact Info) Description 07/06/2022 Documentation Only [facility], [address] [place] [address] Rico Lamb MD [address] [place] [address] [place] [address] Social History Tobacco Use Types [...] Visit [facility] [address] [place] [address] Rico Lamb MD [address] [place] [address] [place] [phone] documented as of this encounter Visit Diagnoses Not on filedocumented in this encounter Care Teams Inside Polisher Relationship Specialty Start Date End Date Rhea Martinez MD [facility] [place] [address] [place] PCP - General 07/08/19 documented as of this encounter
== END 2025-04-02 06:28 | disposition home or self-care (01) ==
LOC: CF 06:27
PROVIDERS: Visit Provider Internal Medicine
DX: M53.3 Sacrococcygeal disorders, not elsewhere classified (principal); Z79.899 Other long term (current) drug therapy
CPT/HCPCS: 27096; J2003; J2795

== ENCOUNTER 2025-04-02 12:05 | Outpatient (AMB) | payer MEDICARE, MEDICAID, SELFPAY ==
[2025-04-02 12:11] VITALS: BP 158/66; PULSE 63; RESP 16; O2SAT 98; BMI 19.9
--- NOTE | 2025-04-02 12:11 | MHC.OFFVIS ---
Vital Signs 04/02/25 12:11 04/02/25 12:57 Height 5 ft 2 in 5 ft 2 in Weight 109 lb 109 lb BMI 19.9 19.9 BP 158/66 H 149/82 H Blood Pressure Location Lt brachial Lt brachial Position Sitting Sitting Respiration 16 16 Pulse 63 62 Pulse Source Pulse Oximeter Pulse Oximeter Pulse Oximetry (%) 98 62 L Oxygen Delivery Method Room Air Room Air Intake Visit Reasons: Right Dx SIJ inj Water Restoration Technician Required: No Allergies adalimumab (From Humira) Adverse Reaction (Verified 04/02/25 12:12) sleepy pregabalin (From Lyrica) Adverse Reaction (Verified 04/02/25 12:12) Dizzyness Medication List - Last Reconciled 04/02/25 by Adelina Loera LPN albuterol sulfate 90 mcg/actuation (Ventolin HFA) 2 puffs PO Q4-6H PRN aspirin (Adult Aspirin Regimen) 81 mg PO DAILY PRN bethanechol chloride 50 mg PO BID 90 days Breo Ellipta 100-25 mcg/dose (fluticasone furoate-vilanterol) 1 ea PO DAILY NS carbamazepine ER 200 mg PO BEDTIME carvedilol 25 mg PO BID finasteride 5 mg PO DAILY 90 days gabapentin 200 mg PO DAILY PRN glucagon 3 mg/actuation (Baqsimi) mg intranasal hydrocodone-acetaminophen 5-325 mg 1 tab PO BID PRN 30 days insulin aspart U-100 70 units subcut DAILY ipratropium-albuterol 0.5 mg-3 mg(2.5 mg base)/3 mL 3 mL inhalation Q4H PRN 30 days lactulose 20 grams (30 mL) PO DAILY PRN lisinopril 40 mg PO DAILY mirabegron ER (Myrbetriq) 25 mg PO DAILY 90 days potassium citrate ER 10 mEq PO TID rosuvastatin 40 mg PO DAILY sennosides-docusate sodium 8.6-50 mg (Senna Plus) 2 tab-caps (2 x 8.6-50 mg) PO BEDTIME sildenafil (Viagra) 100 mg PO DAILY PRN simethicone (Gas Relief (simethicone)) 125 mg PO BEDTIME Spiriva with HandiHaler (tiotropium bromide) 1 cap inhalation DAILY NS tamsulosin 0.4 mg PO DAILY 90 days HPI HPI Right Dx SIJ inj: Details: Patient presents for scheduled procedure. Denies any recent cough, cold, infection, fever or other significant changes in medical history since last office visit. [facility] Medical History Urinary frequency COPD exacerbation Bloating Hypoglycemia Chronic constipation Tinea pedis, left Hx of fracture of femur Eczema Cholelithiasis Carpal tunnel syndrome Ankle fracture Diabetes mellitus type 1 Chronic kidney disease (CKD) stage G2/A3, mildly decreased glomerular filtration rate (GFR) between 60-89 mL/min/1.73 square meter and albuminuria creatinine ratio greater than 300 mg/g Hypercholesterolemia Diabetic neuropathy COPD (chronic obstructive pulmonary disease) Coronary artery disease Hypertension Surgical History Hx of colonoscopy Hx of eye surgery Hx of appendectomy H/O umbilical hernia repair History of cholecystectomy History of elbow surgery History of carpal tunnel release Family History Father Hypertension Stroke CVD (cerebrovascular disease) Mother Hypertension CVD (cerebrovascular disease) Diabetes Sister HX: breast cancer Paternal Grandfather Colon cancer Social History Housing: House Alcohol intake: former Patient Tobacco Use Status: Former Tobacco user Tobacco use type: Cigarette Years Smoked: 2002 quit 08/12 e-Cigarette/Vaping Use: Never Used Second Hand Smoke Exposure: No Substance Use Type: Marijuana service: No Current occupational status: disabled Cognitive needs: No Hearing needs: No Vision needs: Yes Physical Exam Vital Signs: Last Vital Signs Pulse 62 04/02/25 12:57 Resp 16 04/02/25 12:57 BP 149/82 H 04/02/25 12:57 Pulse Ox 62 L 04/02/25 12:57 Oxygen Delivery Method Room Air 04/02/25 12:57 BMI result Body Mass Index 19.9 Office Procedures AMB Joint Injection/Aspiration Joint Injection/Aspiration Details: Diagnostic Sacroiliac Joint Injection, Right The procedure, its benefits, and its risks were explained and written informed consent was obtained from the patient. Immediately prior to starting the procedure, a time-out safety check was conducted. The patient's identification, procedure name, procedure site, and procedure laterality were confirmed with the patient. ? Patient was placed prone on the fluoroscopy table and the lumbosacral area was prepped using ChloraPrep and draped with sterile draped in standard fashion. The C-arm was rotated in a contralateral oblique fashion until the medial border of the iliac crest no longer foreshadowed the posterior sacroiliac joint line. A 1.5-inch 25-gauge needle was slowly advanced towards the joint line, coaxial to the x-ray beam. Once bony content was obtained, the needle was easily slid into the intra-articular space.? Intra-articular needle position was confirmed using lateral fluoroscopy.? A total volume of 2.5mL of solution containing 0.5% of ropivacaine was injected intra-articularly. The stylet was reinserted and needle was removed. The patient tolerated the procedure well. Patient denied any lower extremity weakness or numbness. Patient was observed for 30 min and was discharged after fulfilling the standard discharge criteria. Coding 46254 - Sacroiliac Procedure code (CPT) selection complete Assessment & Plan Assessment & Plan (1) Sacroiliac joint pain: Code(s): M53.3 - Sacrococcygeal disorders, not elsewhere classified Category: Medical Plan Patient is status post diagnostic right sacroiliac joint injection. Patient tolerated procedure well and was discharged home in stable condition with discharge instructions. All questions were answered. We will follow-up via telephone or in clinic to assess response to therapy. A follow-up appointment was made during today's visit. Orders: Orders FL guidance in treatment room Today Michelle Vaughn APRN, STACKER M53.3 - Sacrococcygeal disorders, not elsewhere classified AMB Joint Injection/Aspiration Today Lalit Puente MD M53.3 - Sacrococcygeal disorders, not elsewhere classified Coding Level of Care Code Procedure Only Diagnoses Sacroiliac joint pain M53.3 CPT Codes Coding - Joint 9: 96352 - Sacroiliac ([id number])
[2025-04-02 12:57] VITALS: BP 149/82; PULSE 62; RESP 16; O2SAT 62; BMI 19.9
== END 2025-04-02 12:59 | disposition home or self-care (01) ==
LOC: HO.PMCPRC 12:05
PROVIDERS: PCP Internal Medicine; Visit Provider Internal Medicine
DX: M53.3 Sacrococcygeal disorders, not elsewhere classified (principal)
CPT/HCPCS: 27096

== ENCOUNTER 2025-04-06 11:22 | Outpatient (AMB) | payer MEDICARE, MEDICAID, SELFPAY ==
--- NOTE | 2025-04-06 11:28 | A.OFFVIS_ITS ---
Vital Signs 04/06/25 11:29 Height 5 ft 2 in Weight 109 lb BMI 19.9 BP 193/86 H Blood Pressure Location Rt brachial Position Sitting Respiration 1 L Pulse 66 Pulse Source Pulse Oximeter Pulse Oximetry (%) 96 Oxygen Delivery Method Room Air Intake Visit Reasons: s/p right Dx SIJ inj Crime Scene Technician Required: No Cross Tie Maker: Cross Tie Maker Present Accompanied by: Gustabo Luo Allergies adalimumab (From Humira) Adverse Reaction (Verified 04/06/25 11:30) sleepy pregabalin (From Lyrica) Adverse Reaction (Verified 04/06/25 11:30) Dizzyness Medication List - Last Reconciled 04/06/25 by Adelina Loera, JACK albuterol sulfate 90 mcg/actuation (Ventolin HFA) 2 puffs PO Q4-6H PRN aspirin (Adult Aspirin Regimen) 81 mg PO DAILY PRN bethanechol chloride 50 mg PO BID 90 days Breo Ellipta 100-25 mcg/dose (fluticasone furoate-vilanterol) 1 ea PO DAILY NS carbamazepine ER 200 mg PO BEDTIME carvedilol 25 mg PO BID finasteride 5 mg PO DAILY 90 days gabapentin 200 mg PO DAILY PRN glucagon 3 mg/actuation (Baqsimi) mg intranasal hydrocodone-acetaminophen 5-325 mg 1 tab PO BID PRN 30 days insulin aspart U-100 70 units subcut DAILY ipratropium-albuterol 0.5 mg-3 mg(2.5 mg base)/3 mL 3 mL inhalation Q4H PRN 30 days lactulose 20 grams (30 mL) PO DAILY PRN lisinopril 40 mg PO DAILY mirabegron ER (Myrbetriq) 25 mg PO DAILY 90 days potassium citrate ER 10 mEq PO TID rosuvastatin 40 mg PO DAILY sennosides-docusate sodium 8.6-50 mg (Senna Plus) 2 tab-caps (2 x 8.6-50 mg) PO BEDTIME sildenafil (Viagra) 100 mg PO DAILY PRN simethicone (Gas Relief (simethicone)) 125 mg PO BEDTIME Spiriva with HandiHaler (tiotropium bromide) 1 cap inhalation DAILY NS tamsulosin 0.4 mg PO DAILY 90 days HPI HPI s/p right Dx SIJ inj: Details: History of Present Illness The patient is a 64-year-old male presenting with persistent pain following a sacroiliac joint diagnostic injection. The patient reports significant pain over the right greater trochanteric region and the right distal gluteus medius tendon insertion area. He has previously received an injection in this area, which provided only one day of relief, and it is unclear if imaging was used during the procedure. The patient is considering further interventions as the current treatment has not provided long-term relief. He is interested in exploring platelet-rich plasma (PRP) injections, although they are not covered by insurance. The patient has been prescribed hydrocodone for pain management, which he takes at night. He is not currently taking any NSAIDs or other anti-inflammatory medications. Pain Description - Onset: Persistent pain following sacroiliac joint diagnostic injection - Location: Right greater trochanteric region and right distal gluteus medius tendon insertion area - Quality: Significant pain - Duration: Relief from previous injection lasted only one day - Exacerbating factors: Lack of long-term relief from current treatment - Relieving factors: Previous injection provided temporary relief Physical Exam - Musculoskeletal: Examination of the right greater trochanteric area revealed possible torn tendon Pain Management - Affect: Pain is impacting daily activities and quality of life - Analgesia: Currently using hydrocodone at night for pain management - Adverse Effects: No adverse effects from current medication reported - Activities of Daily Living: Pain limits daily activities and requires further intervention - Aberrant Drug Related Behaviors: No aberrant behaviors reported [facility] Medical History Urinary frequency COPD exacerbation Bloating Hypoglycemia Chronic constipation Tinea pedis, left Hx of fracture of femur Eczema Cholelithiasis Carpal tunnel syndrome Ankle fracture Diabetes mellitus type 1 Chronic kidney disease (CKD) stage G2/A3, mildly decreased glomerular filtration rate (GFR) between 60-89 mL/min/1.73 square meter and albuminuria creatinine ratio greater than 300 mg/g Hypercholesterolemia Diabetic neuropathy COPD (chronic obstructive pulmonary disease) Coronary artery disease Hypertension Surgical History Hx of colonoscopy Hx of eye surgery Hx of appendectomy H/O umbilical hernia repair History of cholecystectomy History of elbow surgery History of carpal tunnel release Family History Father Hypertension Stroke CVD (cerebrovascular disease) Mother Hypertension CVD (cerebrovascular disease) Diabetes Sister HX: breast cancer Paternal Grandfather Colon cancer Social History Housing: House Alcohol intake: former Patient Tobacco Use Status: Former Tobacco user Tobacco use type: Cigarette Years Smoked: 2002 quit 08/12 e-Cigarette/Vaping Use: Never Used Second Hand Smoke Exposure: No Substance Use Type: Marijuana service: No Current occupational status: disabled Cognitive needs: No Hearing needs: No Vision needs: Yes Physical Exam Vital Signs: Last Vital Signs Pulse 66 04/06/25 11:29 Resp 1 L 04/06/25 11:29 BP 193/86 H 04/06/25 11:29 Pulse Ox 96 04/06/25 11:29 Oxygen Delivery Method Room Air 04/06/25 11:29 BMI result Body Mass Index 19.9 Assessment & Plan Assessment & Plan (1) Greater trochanteric bursitis of right hip: Code(s): M70.61 - Trochanteric bursitis, right hip Category: Medical (2) Tendinopathy of right gluteus medius: Code(s): M67.951 - Unspecified disorder of synovium and tendon, right thigh Category: Medical Plan Plan - Consider platelet-rich plasma PRP) injection for long-term pain relief, noting it is not covered by insurance. - Schedule PRP injection at a convenient time for the patient, ensuring payment is made prior to the procedure. - Continue current pain management with hydrocodone at night, avoiding NSAIDs to ensure PRP efficacy. Patient was informed and verbally consented to the use of an ambient scribe for clinic note documentation during this visit. Discussion Notes I discussed with the patient the option of platelet-rich plasma (PRP) injection for his persistent pain, explaining that it is not covered by insurance and costs $745. We reviewed the need to avoid NSAIDs to ensure the efficacy of the PRP treatment. The patient was informed about the scheduling and payment process for the PRP injection, and he agreed to proceed with this plan. Patient Instructions - Schedule and pay for the PRP injection before the procedure date. - Avoid taking NSAIDs to ensure the success of the PRP treatment. - Continue taking hydrocodone at night for pain management. Coding Level of Care Code Est Pt Level 3 (42608) Diagnoses Greater trochanteric bursitis of right hip M70.61 Tendinopathy of right gluteus medius M67.951
[2025-04-06 11:29] VITALS: BP 193/86; PULSE 66; RESP 1; O2SAT 96; BMI 19.9
--- OUTSIDE RECORDS SUMMARY | 2025-04-06 12:18 | XMS_ITS | Clinical Summary ---
Author Organization [facility] Address [address] [place] [address] Phone Care Team Providers Care Counseling Specialist Name Role Phone Rhea Martinez MD Unavailable [phone] Kristy Mcbride MD Unavailable [phone] Rhea Martinez MD Primary Care Provider [phone] Allergies Active Allergy Reactions Criticality Noted Date [...] length cannula, he is advised to contact [facility] to discuss his order since we [...] early ; upgrade to [employer] 670G with [employer] March 2018 Assessment & Plan (10/13/2024 4:15 [...] higher glucose due to steroid therapy effect Simone is encouraged to continue to do his best with healthy eating and staying active Simone is encouraged to call with any questions or concerns, he will return in 3 months to meet with Laura Parham and in 6 months to meet with hi Assessment & Plan (04/11/2024 2:47 PM EDT): [...] times and 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 to reduce risk of hypoglycemia at [...] Type Department Care Team Description 02/09/2025 Telephone [facility] [address] [place] [address] [place] [address] Marisa Monsalve MA LMN FOR PUMP SUPPLIES 01/15/2025 Telephone [facility] [address] [place] [address] [place] [address] Marisa Monsalve MA CLINICAL NOTES 01/12/2025 1:00 PM EDT Nutrition [facility] [address] [place] [address] [place] [address] Kristy Mcbride MD Dawicki, Laura Valdez, ZHANNA [...] Description 04/13/2025 2:00 PM EDT Office Visit [facility] [address] [place] [address] [place] [address] Kristy Mcbride MD [address] [place] [id number] 07/20/2025 1:00 PM EST Nutrition [facility] [address] [place] [address] [place] [address] Kristy Mcbride MD [address] [place] [address] Laura Parham, ZHANNA [address] [place] [phone] Health Maintenance Due Date Last Done Comments [...] HEMOGLOBIN A1C 8.2(H) 4.3 - 5.8 % [facility] Blood 09/29/2024 11:1 4 AM EST 09/29/2024 11:31 AM EST us Kristy Mcbride MD LAB BLOOD ORDERABLES Final Resu lt [facility] [address] [place] [address] * (ABNORMAL) Basic metabolic panel (12/25/2022 2:05 PM EDT) SODIUM 138 133 - 146 mmol/L [facility] CHLORIDE 102 96 - 108 mmol/L [facility] POTASSIUM 5.2(H) 3.3 - 5.1 mmol/L [facility] CO2 28 21 - 35 mmol/L [facility] BUN 29(H) 6 - 19 mg/dL [facility] CREATININE 1.50 0.5 - 1.5 mg/dL [facility] GLUCOSE 231(H) 70 - 99 mg/dL [facility] CALCIUM 9.2 8.4 - 10.3 mg/dL [facility] EGFR 52(L) >59 mL/min/1.7 3m2 [facility] Comment:Estimated glomerular filtration rate calculated using the CKD-EPI refit equation. ANION GAP 13 10 - 20 mmol/L [facility] Blood 12/25/2022 2:05 PM EDT 12/25/2022 2:08 PM EDT Rhea Martinez MD LAB BLOOD ORDERABLES Final Re sult [facility] [address] [place] [address] from Last 3 Months or Most Recently Relevant to Health Maintenance Insurance MEDICARE PART A & B [facility] MEDIC[facility] PART A & B [facility] & B [facility] Care Teams Counseling Specialist Relationship Specialty Start Date End Date Rhea Martinez MD [address] [place] [phone] PCP - General Internal Medicine 07/04/17 Rhea Martinez MD [address] [place] [phone] Historical LMR Provider 06/18/17 Kristy Mcbride MD [address] [place] [address], [address] [place] [address] [email or web address] Historical LMR Provider 06/18/17 Additional Source Comments The information contained in this document represents components of the legal health record. It is not the complete legal health record.[facility]
--- OUTSIDE RECORDS SUMMARY | 2025-04-06 12:18 | XMS_ITS | Patient Health Record ---
Author Organization [facility] Address [address] [place] [address] Care Team Providers Care Log Handler Name Role Phone Rhea Martinez Primary Care Provider UnavailRachele Andersen Unavailable [phone] David Ndiaye Unavailable [phone] Vivienne Greene Unavailable [phone] Allergies Allergen (clinical drug ingredient) Drug/Non Drug [...] Polyneuropathy due to type 2 diabetes mellitus (871965754) Type 2 diabetes mellitus with diabetic polyneuropathy (E11.42) Active confirmed Problem Acquired hammer toe of right foot (4723172478602472 ) Other hammer toe(s) (acquired), right foot (M20.41) Active confirmed Response to treatment, Improvemen t Problem Acquired hammer toe of left foot (2524638886363731 ) Other hammer toe(s) (acquired), left foot (M20.42) Active confirmed Response to treatment, Improvemen t Vital Signs Blood pressure diastolic 80 mm Hg 02/13/2025 Height 5ft 3in in 02/13/2025 Blood pressure systolic 120 mm Hg 02/13/2025 Weight 109 lbs 02/13/2025 BMI 19.31 kg/m2 02/13/2025 Procedures Procedure Date Ordered Date Performed Result Body Sit e 64188-ZGHFGQV NAIL, 6 OR MORE 08/25/2024 N/A 74525-CYLI SKIN LESIONS, OVER 4 08/25/2024 N/A Encounters Encounter Location Date Provider Diagnosis [facility] [address] [place] [address] 06/02/2024 David Ndiaye Other viral warts B07.8 [...] foot M20.41 and Ingrowing nail L60.[address] [address] 08/25/2024 Vivienne Jc Type 2 diabetes mellitus with diabetic polyneuropathy E11.42 ; Tinea unguium B35.1 ; Other hammer toe(s) (acquired), right foot M20.41 and Other hammer toe(s) (acquired), left foot M20.[address] [address] 11/14/2024 Rachele Uribe Type 2 diabetes mellitus with diabetic polyneuropathy E11.42 and Tinea unguium B35.[address] [address] 02/13/2025 Rachele Uribe Type 2 diabetes mellitus with diabetic polyneuropathy E11.42 and Tinea unguium B35.[address] [address] 07/03/2024 David Ndiaye Type 1 diabetes mellitus [...] Treatment Pending Test Test Name Order Date 97485-BEFLILE NAIL, 6 OR MORE 08/25/2024 92977-TDOU SKIN LESIONS, OVER 4 08/25/20 24 30209-TAXA SKIN LESIONS, OVER 4 09/20/19 50732-QOGM SKIN LESIONS, OVER 4 11/24/19 23 94544-UOIC SKIN LESIONS, 2 TO 4 02/02/20 Next Appt Details Provider Name:Rachele cannon, 05/22/2025 01:30:00 PM, [address] [place] [address], [place], [phone], Insurance Providers Payer Name Payer Address Payer Phone Subscriber Number Group Number Insured Name Patient Relationship to Insured Coverage Start Date Coverage End Date Medicare National [employer]t [employer] [address] [place] [address] [id number] Simone Mir Self - patient is the insured Medical (General) History Medical History History ICD Code Arthritis Back,Hip,and Knee pain Broken bones CAD (Cholesterol) type I diabetes Gall bladder problems Heart disease High blood pressure Kidney disease Lung disease COPD Surgical History Surgery Date(Month/Year) appendectomy Gall bladder removal hernia surgery Orthopedic Surgery- hip, elbow, leg Hospitalization History Reason Date(Month/Year) [facility] ER- breathing issues 08/16/24
--- OUTSIDE RECORDS SUMMARY | 2025-04-06 12:18 | XMS_ITS | Clinical Summary ---
Author Organization [facility] Address [address] [place] [address] Care Team Providers Care Senior Security Engineer Name Role Phone Unavailable Primary Care Provider [...] Payer (Ef fective 2022-Present) Name:Simone Quintana Member ID:[id number] Relation to Subscriber:Self Name:Simone Quintana Subscriber ID:[id number] Payer ID:[id number] Group ID:Not on file Type:Medicare Address: [facility] [address] [address] [place] AD[place]
--- OUTSIDE RECORDS SUMMARY | 2025-04-06 12:18 | XMS_ITS | Encounter Summary ---
Author Organization [facility], Address [address] [place] [address] Phone Care Team Providers Care Legal Process Specialist Name Role Phone Rhea Martinez MD Primary Care Provider [phone] Encounter Details Date Type Department Care Team (Late st Contact Info) Description 07/06/2022 Documentation Only [facility], [address] [place] [address] Rico Lamb MD [address] [place] [address] [place] [address] Social History Tobacco Use Types [...] Visit [facility] [address] [place] [address] Rico Lamb MD [address] [place] [address] [place] [address] documented as of this encounter Visit Diagnoses Not on filedocumented in this encounter Care Teams Legal Process Specialist Relationship Specialty Start Date End Date Rhea Martinez MD [facility] [address] [place] PCP - General 07/08/19 documented as of this encounter
--- OUTSIDE RECORDS SUMMARY | 2025-04-06 12:18 | XMS_ITS | Patient Health Record ---
Author Organization [facility] Address [address] [place] [address] Care Team Providers Care Plastic Sewer Name Role Phone Rhea Martinez MD Primary Care Provider Dylan Ayala Unavailable [phone] Reason For Referral No Information Medications Medication [...] Problem Status W/U Status Risk Notes Problem [id number] Encounter for screening for malignant neoplasm of colon (Z12.11) Active confirmed Problem 83340010 Constipation, unspecified constipation type (K59.00) Active confirmed Plan Of Treatment Future Test Test Name Order Date COLONOSCOPY 06/04/2020 Insurance Providers Payer Name Payer Address Payer Phone Subscriber Number Group Number Insured Name Patient Relationship to Insured Coverage Start Date Coverage End Date MEDICARE OF [place] E[place] ANA [place] [address] [id number] GAVIOTA MCKINNEY Self - patient is the insured [place] OF [place] [address] [place] [phone] [id number] GAVIOTA MCKINNEY Self - patient is the insured Medical (General) History Medical History History ICD Code Hyperlipidemia Hypertension IDDM--has an Insulin pump COPD Denies CA nor CVA Sees a consulting services manager for proteinuria Constipation Neg. screening colonoscopy in 01/2010 Decreased vision right eye Surgical History Surgery Date(Month/Year) cholecystectomy appendectomy orthopedic surgeries umbilical hernia repair Retina laser surgery both eyes
== END 2025-04-06 12:08 | disposition home or self-care (01) ==
LOC: HO.PMC 11:24
PROVIDERS: PCP Internal Medicine; Visit Provider Internal Medicine
DX: M70.61 Trochanteric bursitis, right hip (principal); M67.951 Unspecified disorder of synovium and tendon, right thigh
CPT/HCPCS: 99213

== ENCOUNTER → 2025-04-06 11:22 | Outpatient (BNVA) | payer MEDICARE, OTHER, SELFPAY | PROVIDERS: PCP Internal Medicine; Visit Provider Internal Medicine | DX: M70.61 Trochanteric bursitis, right hip (principal); M67.951 Unspecified disorder of synovium and tendon, right thigh | CPT/HCPCS: 99212 ==

== ENCOUNTER 2025-04-22 13:46 | Outpatient (AMB) | payer MEDICARE, MEDICAID, SELFPAY ==
[2025-04-22 13:59] VITALS: BP 110/62; PULSE 66; O2SAT 99; BMI 20.3
--- NOTE | 2025-04-22 13:59 | A.OFFVIS_ITS ---
Vital Signs 04/22/25 13:59 Height 5 ft 2 in Weight 111 lb BMI 20.3 BP 110/62 Blood Pressure Location Lt brachial Position Sitting Pulse 66 Pulse Source Pulse Oximeter Pulse Oximetry (%) 99 Oxygen Delivery Method Room Air Intake Visit Reasons: Cough Intake Note: pt is here for follow up and still has a cough mostly in am . Microarray Operations Vice President Required: No Allergies adalimumab (From Humira) Adverse Reaction (Verified 04/22/25 14:03) sleepy pregabalin (From Lyrica) Adverse Reaction (Verified 04/22/25 14:03) Dizzyness Medication List - Last Reconciled 04/22/25 by Mele Emerson MD albuterol sulfate 90 mcg/actuation (Ventolin HFA) 2 puffs PO Q4-6H PRN aspirin (Adult Aspirin Regimen) 81 mg PO DAILY PRN bethanechol chloride 50 mg PO BID 90 days Breo Ellipta 100-25 mcg/dose (fluticasone furoate-vilanterol) 1 ea PO DAILY NS carbamazepine ER 200 mg PO BEDTIME carvedilol 25 mg PO BID finasteride 5 mg PO DAILY 90 days gabapentin 200 mg PO DAILY PRN glucagon 3 mg/actuation (Baqsimi) mg intranasal hydrocodone-acetaminophen 5-325 mg 1 tab PO BID PRN 30 days insulin aspart U-100 70 units subcut DAILY ipratropium-albuterol 0.5 mg-3 mg(2.5 mg base)/3 mL 3 mL inhalation Q4H PRN 30 days lactulose 20 grams (30 mL) PO DAILY PRN lisinopril 40 mg PO DAILY mirabegron ER (Myrbetriq) 25 mg PO DAILY 90 days potassium citrate ER 10 mEq PO TID rosuvastatin 40 mg PO DAILY sennosides-docusate sodium 8.6-50 mg (Senna Plus) 2 tab-caps (2 x 8.6-50 mg) PO BEDTIME sildenafil (Viagra) 100 mg PO DAILY PRN simethicone (Gas Relief (simethicone)) 125 mg PO BEDTIME Spiriva with HandiHaler (tiotropium bromide) 1 cap inhalation DAILY NS tamsulosin 0.4 mg PO DAILY 90 days Do you need a note to return to daycare/school/sports/work: No HPI HPI Cough: Details: GAVIOTA is 64 years old gentleman, Comes of to 6 months for his routine follow-up. His breathing status has remained stable without any acute exacerbation. He continues to use Breo and Spiriva on a regular basis and uses the nebulizer or albuterol inhaler only once in a while. He has had no acute infection or exacerbation in the last 6 months He has ongoing problem with the back as well as the hip joint and has impaired locomotion. Now using walker most of the time. [facility] Medical History Urinary frequency COPD exacerbation Bloating Hypoglycemia Chronic constipation Tinea pedis, left Hx of fracture of femur Eczema Cholelithiasis Carpal tunnel syndrome Ankle fracture Diabetes mellitus type 1 Chronic kidney disease (CKD) stage G2/A3, mildly decreased glomerular filtration rate (GFR) between 60-89 mL/min/1.73 square meter and albuminuria creatinine ratio greater than 300 mg/g Hypercholesterolemia Diabetic neuropathy COPD (chronic obstructive pulmonary disease) Coronary artery disease Hypertension Surgical History Hx of colonoscopy Hx of eye surgery Hx of appendectomy H/O umbilical hernia repair History of cholecystectomy History of elbow surgery History of carpal tunnel release Family History Father Hypertension Stroke CVD (cerebrovascular disease) Mother Hypertension CVD (cerebrovascular disease) Diabetes Sister HX: breast cancer Paternal Grandfather Colon cancer Social History Housing: House Alcohol intake: former Patient Tobacco Use Status: Former Tobacco user Tobacco use type: Cigarette Years Smoked: 2002 quit 08/12 e-Cigarette/Vaping Use: Never Used Second Hand Smoke Exposure: No Substance Use Type: Marijuana service: No Current occupational status: disabled Cognitive needs: No Hearing needs: No Vision needs: Yes Review of Systems Const All systems reviewed & are unremarkable except as noted in HPI and below Eyes Reports no additional complaints ENT Reports nasal congestion (Only mild, off and on) Card Denies irregular heart rhythm and Denies leg edema Resp Reports as per HPI GI Reports dyspepsia (Mild) Reports erectile dysfunction and Reports urinary hesitancy Musc Reports back pain (Mild) Skin/Breast Reports system reviewed and no additional complaints, except as documented Neuro Reports no additional complaints Psych Reports no additional complaints Physical Exam Const General: comfortable (BUT HAS FREQUENT COUGH), no acute distress, alert and awake Orientation/consciousness: patient oriented x3 HEENT Head: Yes normal to inspection General nose exam: No nasal polyps present and No nasal discharge present Face and sinus: Yes sinuses nontender Mouth: oropharynx normal Throat: Yes posterior oropharynx normal Eyes General: appearance normal, both eyes and all related structures Neck Neck: Yes normal visual inspection, Yes no lymphadenopathy, Yes trachea midline and Yes no JVD Thyroid: Thyroid normal Chest Chest palpation & inspection: normal inspection of the chest, normal palpation of entire chest wall and no tenderness Resp Other: Percussion note hyper-resonant, Breath sounds are distant with prolonged expiratory phase. No wheezes or rhonchi are heard. Cardio Palpation: normal PMI Rate: regular rate Rhythm: regular rhythm Heart sounds: no gallops and no murmurs GI Palpation (GI): Soft to palpation, nontender, No hepatosplenomegaly present and no masses Auscultation: normal bowel sounds Back/Spine/Pelvis Thoracic/Lumbar Spine: thoracic and lumbar spine normal to inspection Skin General skin exam: no rashes or lesions noted Neuro General: patient oriented x3 and no focal motor deficits Cranial nerves: Yes CN's II-XII intact bilaterally Extrem General: Yes normal to inspection, Yes no clubbing, cyanosis or edema and Yes no calf tenderness Psych Appearance: grossly normal and well kempt Speech and movement: Normal speech and movement present Assessment & Plan Assessment & Plan (1) COPD (chronic obstructive pulmonary disease): Comment: HE IS A KNOWN CASE OF SEVERE COPD, REMAINS STABLE, BUT DOES COMPLAIN OF ONGOING COUGH. AND MILD DYSPNEA ON WALKING. Code(s): J44.9 - Chronic obstructive pulmonary disease, unspecified Category: Medical Qualifiers: COPD type: emphysema Emphysema type: unspecified Qualified Code(s): J43.9 - Emphysema, unspecified Plan: I talked to him at length advise that . His pulmonary status is stable Advise that he should continue to use : Breo 200-251 inhalation daily Spiriva HandiHaler. 1 inhalation daily Albuterol HFA 2 puffs Q. 6 hours p.r.n. when outdoors At home he can use the nebulizer with ipratropium-albuterol solution Q 4-6 hours only p.r.n.. (2) Pleural effusion: Comment: HE HAS A VERY SMALL RIGHT BASILAR EFFUSION VS BASILAR ATELECTASIS. IT IS CHRONIC AND, JUST NEEDS TO BE WATCHED. Code(s): J90 - Pleural effusion, not elsewhere classified Category: Medical Plan: NO CHANGE IN THE TREATMENT PLAN AT THIS TIME Coding Level of Care Code Est Pt Level 3 (27265) Diagnoses Pulmonary emphysema, unspecified emphysema type J43.9 COPD type: emphysema Emphysema type: unspecified Pleural effusion J90
--- OUTSIDE RECORDS SUMMARY | 2025-04-22 14:42 | XMS_ITS | Encounter Summary ---
Author Organization [facility], Address [address] [place] [address] Phone Care Team Providers Care Lighting Engineering Technician Name Role Phone Rhea Martinez MD Primary Care Provider [phone] Encounter Details Date Type Department Care Team (Late st Contact Info) Description 07/06/2022 Documentation Only [facility], [address] [place] [address] Rico Lamb MD [address] [place] [address] [place] [address] Social History Tobacco Use Types [...] Visit [facility] [address] [place] [address] Rico Lamb MD [address] [place] [address] [place] [address] documented as of this encounter Visit Diagnoses Not on filedocumented in this encounter Care Teams Lighting Engineering Technician Relationship Specialty Start Date End Date Rhea Martinez MD [facility] [id number] [place] PCP - General 07/08/19 documented as of this encounter
--- OUTSIDE RECORDS SUMMARY | 2025-04-22 14:42 | XMS_ITS | Clinical Summary ---
Author Organization [facility] Address [address] [facility] 7[address] [place] [address] Care Team Providers Care Tool Crib Lead Name Role Phone Unavailable Primary Care Provider [...] Payer (Ef fective 2022-Present) Name:Simone Quintana Member ID:[id number] Relation to Subscriber:Self Name:Simone Quintana Subscriber ID:[id number] Payer ID:[id number] Group ID:Not on file Type:Medicare Address: [facility] [address] [address] [place]
--- OUTSIDE RECORDS SUMMARY | 2025-04-22 14:42 | XMS_ITS | Patient Health Record ---
Author Organization [facility] Address [address] [place] [address] Care Team Providers Care Liquid Center Assembler Name Role Phone Rhea Martinez Primary Care Provider UnavailRachele Andersen Unavailable [phone] David Ndiaye Unavailable [phone] Vivienne Greene Unavailable [phone] Allergies Allergen (clinical drug ingredient) Drug/Non Drug [...] Polyneuropathy due to type 2 diabetes mellitus (563611092) Type 2 diabetes mellitus with diabetic polyneuropathy (E11.42) Active confirmed Problem Acquired hammer toe of right foot (9070142424812933 ) Other hammer toe(s) (acquired), right foot (M20.41) Active confirmed Response to treatment, Improvemen t Problem Acquired hammer toe of left foot (6588261939025541 ) Other hammer toe(s) (acquired), left foot (M20.42) Active confirmed Response to treatment, Improvemen t Vital Signs Blood pressure diastolic 80 mm Hg 02/13/2025 Height 5ft 3in in 02/13/2025 Blood pressure systolic 120 mm Hg 02/13/2025 Weight 109 lbs 02/13/2025 BMI 19.31 kg/m2 02/13/2025 Procedures Procedure Date Ordered Date Performed Result Body Sit e 59476-ZJNVEBI NAIL, 6 OR MORE 08/25/2024 N/A 07578-JGRF SKIN LESIONS, OVER 4 08/25/2024 N/A Encounters Encounter Location Date Provider Diagnosis [facility] [place] [address] [place] [address] 06/02/2024 David Ndiaye Other viral warts B07.8 [...] right foot M20.41 and Ingrowing nail L60.[address] [address] 08/25/2024 Vivienne Jc Type 2 diabetes mellitus with diabetic polyneuropathy E11.42 ; Tinea unguium B35.1 ; Other hammer toe(s) (acquired), right foot M20.41 and Other hammer toe(s) (acquired), left foot M20.[address] [address] 11/14/2024 Rachele Uribe Type 2 diabetes mellitus with diabetic polyneuropathy E11.42 and Tinea unguium B35.[address] [address] 02/13/2025 Rachele Uribe Type 2 diabetes mellitus with diabetic polyneuropathy E11.42 and Tinea unguium B35.[address] [address] 07/03/2024 David Ndiaye Type 1 diabetes mellitus [...] Treatment Pending Test Test Name Order Date [id number]-[id number] NAIL, 6 OR MORE 08/25/2024 51113-ODIH SKIN LESIONS, OVER 4 08/25/20 24 00486-EJLH SKIN LESIONS, OVER 4 09/20/19 47594-PUYB SKIN LESIONS, OVER 4 11/24/19 23 79343-JAFO SKIN LESIONS, 2 TO 4 02/02/20 Next Appt Details Provider Name:Rachele cannon, 05/22/2025 01:30:00 PM, [address] [place] [address], [place], [address], Insurance Providers Payer Name Payer Address Payer Phone Subscriber Number Group Number Insured Name Patient Relationship to Insured Coverage Start Date Coverage End Date Medicare National [employer]t S[employer] [address] [place] [address] [id number] Simone Mir Self - patient is the insured Medical (General) History Medical History History ICD Code Arthritis Back,Hip,and Knee pain Broken bones CAD (Cholesterol) type I diabetes Gall bladder problems Heart disease High blood pressure Kidney disease Lung disease COPD Surgical History Surgery Date(Month/Year) appendectomy Gall bladder removal hernia surgery Orthopedic Surgery- hip, elbow, leg Hospitalization History Reason Date(Month/Year) [facility] ER- breathing issues 08/16/24
--- OUTSIDE RECORDS SUMMARY | 2025-04-22 14:43 | XMS_ITS | Clinical Summary ---
Author Organization [facility] Address [address] [place] [address] Phone Care Team Providers Care Hoisting Engineer Name Role Phone Rhea Martinez MD Unavailable [phone] Kristy Mcbride MD Unavailable [phone] Rhea Martinez MD Primary Care Provider [phone] Allergies Active Allergy Reactions Criticality Noted Date [...] Date Hypertensive disorder 02/06/2020 Assessment & Plan (04/13/2025 3:01 PM EDT): Blood pressure control is very good Continues on regimen which includes ACEi Maintaining good blood pressure and blood sugar control will help reduce progression of diabetic eye and kidney disease Follows with nephrology Assessment & Plan (10/13/2024 4:08 PM EST): [...] includes ACEi Hyperlipidemia 09/07/2017 Assessment & Plan (04/13/2025 3:02 PM EDT): LDL goal is <70, we do not have most recent lipid panel available for review today, Simone reports that labs are up to date with PCP Continues on high intensity statin therapy Assessment & Plan (10/13/2024 4:10 PM EST): [...] of both eyes 09/07/2017 Assessment & Plan (04/13/2025 3:15 PM EDT): Eye care is up to date Blood pressure is in desired range today but borderline Blood sugar remains in very good control with modest variability in most recent two week period and large percentage of blood sugars in target range Assessment & Plan (10/13/2024 4:16 PM EST): [...] Medtronic 780G and G4 Assessment & Plan (04/13/2025 3:06 PM EDT): Current insulin pump setting Time Basal Rates? Time ICR Time ISF Time Target IOB 12am Auto u/hr 12am 13 12am 75 12am 100 mg/dl 4 hrs 7am 13 5am 60 OR 12pm 12 10pm 75 5pm 17 12am 0.75 3am 0.80 7am 0.550 10am 0.475 5pm 0.600 9pm 0.650 We adjusted insulin pump settings as noted today, overnight basal rates will be safer in case Simone has to run in manual mode, otherwise settings continue to be effective and most recent CGM data indicates excellent control with TIR at target and modest variability Advised to continue to monitor glucose patterns and insulin requirement as he has other therapies for hip pain, as pain is managed more effectively and activity improves, Simone is likely to see lower insulin requirement Encouraged to continue his excellent self management efforts despite ongoing health challenges and to contact me with any questions or concerns Simone will return every 3 months for Medicare pump/CGM coverage criteria Assessment & Plan (10/13/2024 4:12 PM EST): [...] length cannula, he is advised to contact [facility] to discuss his order since we don't [...] mellitus with diabetic neuropath y 09/06/2017 Overview (04/13/2025): DIABETES HISTORY Diagnosis - type 1 diabetes, dx at age 6 Treatment history - insulin pump approximately early ; upgrade to Medtronic 780G with Guardian 4 in late summer 2022 Assessment & Plan (04/13/2025 3:14 PM EDT): Overall glucose control per Simone's CGM report is in excellent range with low rate of hyper- and hypoglycemia and percentage of data at target range, 77% in the most recent two week period, encouraged to continue his excellent efforts Highest risk for lows is when Simone is in manual mode overnight, we adjusted basal rates when in manual mode which should help keep him safer overnight Weight loss is likely to impact insulin requirement, spending time in automode will allow for algorithm adjustment to insulin needs Simone is encouraged to continue to do his best with healthy eating and staying active Simone is encouraged to call with any questions or concerns, he will return in 3 months to meet with Laura Parham and in 6 months to meet with ga Assessment & Plan (10/13/2024 4:15 PM EST): [...] to meet with me Assessment & Plan (04/11/2024 2:47 PM EDT): [...] and in 6 months to meet with ga Assessment & Plan (09/06/2020 10:52 PM EST): [...] times and a slight reduction in the greige goods marker hours to reduce risk of hypoglycemia at [...] angiopathy without gangrene 09/06/2017 Assessment & Plan (04/13/2025 3:07 PM EDT): Peripheral tissues without recent trauma, neuropathy 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 stable Sees podiatry regularly Assessment & Plan (04/05/2023 12:36 PM EDT): Peripheral tissues without recent trauma, neuropathy 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 stable Assessment & Plan (09/07/2017 11:54 AM EST): Peripheral tissues without recent trauma, neuropathy 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 stable Diabetes mellitus type 1 07/04/2017 Resolved Problems Problem Noted Date Diagnosed Date Resolved Date Fitting and adjustment of insulin pump 03/04/2018 09/29/2021 Encounters Date Type Department Care Team Description 04/13/2025 2:00 PM EDT Office Visit [facility] [address] [place] [address] [place] [address] Kristy Mcbride MD 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); Type 1 diabetes mellitus with diabetic neuropathy; Type 1 diabetes mellitus with diabetic peripheral angiopathy without gangrene; Insulin pump in place; Primary hypertension; Hyperlipidemia, unspecified hyperlipidemia type 04/08/2025 Telephone [facility] [address] [place] [address] [place] [id number] Marisa Monsalve MA CLINICAL NOTES 02/09/2025 Telephone [facility] [address] [place] [address] Marisa Monsalve MA LMN FOR PUMP SUPPLIES from Last 3 Months Immunizations Immunization Administration Dates Next Due COVID-19 (Pre-06/25) Pfizer Vaccine, mRNA, PF 12/13/2020,11/22/2020 INFLUENZA, SPLIT VIRUS, TRIV ALENT W/ PRESERVATIVE IM 06/26/2011 Influenza Quadrivalent Preservative Free IM 06/03,06/18/2018 Influenza Quadrivalent w/ Preservative IM 2018,06/08/2017,06/06/2016 Td (adult) 5 Lf Tetanus Toxo id, [...] Sign Reading Time Taken Comments Blood Pressure 124/72 04/13/2025 2:05 PM EDT Pulse 69 04/13/2025 2:05 PM EDT Temperature 36.6 C (97.8 F) 10/08/2023 1:26 PM EST Respiratory Rate - - Oxygen Saturation 93% 04/13/2025 2:05 PM EDT Inhaled Oxygen Concentration - - Weight 50.6 kg (111 lb 9.6 oz) 04/13/2025 2:05 P M EDT Height 160 cm (5' 2.99 ) 10/13/2024 1:38 PM EST Body Mass Index 19.77 10/13/2024 1:38 PM EST Plan of Treatment Upcoming Encounters Date Type Department Care Team (Late st Contact Info) Description 07/20/2025 1:00 PM EST Nutrition [facility] [address] [place] [address] [place] [address] Kristy Mcbride MD [address] [place] [address] Laura Parham LDN [address] [place] [address] 10/12/2025 2:40 PM EST Office Visit [facility] [address] [place] [address] Kristy Mcbride MD [address] [place] [phone] Health Maintenance Due Date Last Done Comments CARBAMAZEPINE (TEGRETOL) LEVEL 1959 DEPRESSION SCREENING 1971 HEPATITIS C SCREENING 1977 HIV ONE-TIME SCREENING (18-65 YEARS) 1977 COLOGUARD 2004 COLONOSCOPY 2004 COLORECTAL CANCER SCREENING 2004 FIT TEST 2004 FOBT 2004 SIGMOIDOSCOPY 2004 VIRTUAL COLONOSCOPY 2004 DIABETIC EYE EXAM 07/04/2017 RSV VACCINE (1 - Risk 60-74 years 1-dose series) 2019 CREATININE LEVEL 12/26/2023 12/25/2022 POTASSIUM LEVEL 12/26/2023 12/25/2022 COVID-19 VACCINE ( season) 2024 10/23/2023, 08/14/2022, 07/11/2021, Additional history exists ABDOMINAL AORTIC ANEURYSM (AAA) SCREENING 2024 SMOKING Hx and SMOKELESS TOBACCO SCREENING 10/13/2025 10/13/2024 BLOOD PRESSURE 10/14/2025 04/13/2025 HEMOGLOBIN A1C 10/14/2025 04/13/2025, 09/04, 04/02/2024, Additional history exists Adult Td,Tdap Booster 06/20/2031 06/20/2021, 013 ZOSTER VACCINES Completed 03/01/2023, 12/28/2022 PNEUMOCOCCAL VACCINES (50+ years) Completed 01/13/2025 HEPATITIS A VACCINES Aged Out No long [...] Procedure Name Priority Date/Time Associated Diagnosis Comments POCT HEMOGLOBIN A1C Routine 04/13/2025 2 :26 PM EDT 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 Type 1 diabetes mellitus with diabetic neuropathy Type 1 diabetes mellitus with diabetic peripheral angiopathy without gangrene Insulin pump in place BASIC METABOLIC PANEL Routine 12/25/2022 2:05 PM EDT Chronic kidney disease, stage II (mild) Type 1 diabetes mellitus with diabetic neuropathy from Last 3 Months or Most Recently Relevant to Health Maintenance Results * (ABNORMAL) POCT Hemoglobin A1c (04/13/2025 2:26 PM EDT) Hemoglobin A1c 7.3(A) 4.2 - 5.6 % [facility] Other 04/13/2025 2:26 PM EDT us Kristy Mcbride MD POINT OF CARE TEST ORDERABLES F inal Result Performing Organization Address [facility]/ZIP Co de Phone Number [address] [address], [facility] * (ABNORMAL) Basic metabolic panel (12/25/2022 2:05 PM EDT) SODIUM 138 133 - 146 mmol/L [facility] CHLORIDE 102 96 - 108 mmol/L [facility] POTASSIUM 5.2(H) 3.3 - 5.1 mmol/L [facility] CO2 28 21 - 35 mmol/L [facility] BUN 29(H) 6 - 19 mg/dL [facility] CREATININE 1.50 0.5 - 1.5 mg/dL [facility] GLUCOSE 231(H) 70 - 99 mg/dL [facility] CALCIUM 9.2 8.4 - 10.3 mg/dL [facility] EGFR 52(L) >59 mL/min/1.7 3m2 [facility] Comment:Estimated glomerular filtration rate calculated using the CKD-EPI refit equation. ANION GAP 13 10 - 20 mmol/L [facility] Blood 12/25/2022 2:05 PM EDT 12/25/2022 2:08 PM EDT us Rhea Martinez MD LAB BLOOD ORDERABLES Final Re sult [address] [address] from Last 3 Months or Most Recently Relevant to Health Maintenance Insurance MEDICARE PART A & B [id number] [place], [place] [id number] MEDICARE PART A & B [id number] [place], [place] [id number] MEDICARE PART A & B [address] [place] [id number] MEDICARE PART A & B [facility] & B [facility] & B [facility] MED[facility] PART A & B [facility] & [facility] Care Teams Hoisting Engineer Relationship Specialty Start Date End Date Rhea Martinez MD [address] [place] [address] PCP - General Internal Medicine 07/04/17 Rhea Martinez MD [address] [place] [address] Historical LMR Provider 06/18/17 Kristy Mcbride MD [address] [place] [address], [address] [place], [place] [id number] [email or web address] Historical LMR Provider 06/18/17 Additional Source Comments The information contained in this document represents components of the legal health record. It is not the complete legal health record.[facility]
--- OUTSIDE RECORDS SUMMARY | 2025-04-22 14:43 | XMS_ITS | Patient Health Record ---
Author Organization [facility] Address [address] [place] [address] Care Team Providers Care Medical Records Coder Name Role Phone Rhea Martinez MD Primary Care Provider Dylan Ayala Unavailable [phone] Reason For Referral No Information Medications Medication [...] Problem Status W/U Status Risk Notes Problem [id number] Encounter for screening for malignant neoplasm of colon (Z12.11) Active confirmed Problem [id number] Constipation, unspecified constipation type (K59.00) Active confirmed Plan Of Treatment Future Test Test Name Order Date COLONOSCOPY 06/04/2020 Insurance Providers Payer Name Payer Address Payer Phone Subscriber Number Group Number Insured Name Patient Relationship to Insured Coverage Start Date Coverage End Date MEDICARE OF KARINA ERIKA ANA MARIA [address] [id number] GAVIOTA MCKINNEY Self - patient is the insured MEDICAID OF [employer] [address] [place] [phone] [id number] GAVIOTA MCKINNEY Self - patient is the insured Medical (General) History Medical History History ICD Code Hyperlipidemia Hypertension IDDM--has an Insulin pump COPD Denies CT nor CVA Sees a piano mover for proteinuria Constipation Neg. screening colonoscopy in 01/2010 Decreased vision right eye Surgical History Surgery Date(Month/Year) cholecystectomy appendectomy orthopedic surgeries umbilical hernia repair Retina laser surgery both eyes
== END 2025-04-22 14:20 | disposition home or self-care (01) ==
LOC: HO.HPS 13:47
PROVIDERS: PCP Internal Medicine; Visit Provider Internal Medicine
DX: J43.9 Emphysema, unspecified (principal); J90 Pleural effusion, not elsewhere classified
CPT/HCPCS: 99213

== ENCOUNTER → 2025-04-22 13:46 | Outpatient (BNVA) | payer MEDICARE, MEDICAID, SELFPAY | PROVIDERS: PCP Internal Medicine; Visit Provider Internal Medicine | DX: J43.9 Emphysema, unspecified (principal); J90 Pleural effusion, not elsewhere classified; Z87.891 Personal history of nicotine dependence | CPT/HCPCS: 99212 ==

== ENCOUNTER 2025-04-23 06:14 | Outpatient (REF) | payer MEDICARE, OTHER, SELFPAY ==
--- OUTSIDE RECORDS SUMMARY | 2025-04-23 06:16 | XMS_ITS | Encounter Summary ---
Author Organization [facility], Address [address] [place] [address] Phone Care Team Providers Care Brand Ambassador Promotional Model Name Role Phone Rhea Martinez MD Primary Care Provider [phone] Encounter Details Date Type Department Care Team (Late st Contact Info) Description 07/06/2022 Documentation Only [facility], [address] [place] [address] Rico Lamb MD [address] [place] [address] [place] [address] Social History Tobacco Use Types [...] Visit [facility] [address] [place] [address] Rico Lamb MD [address] [place] [address] [place] [address] documented as of this encounter Visit Diagnoses Not on filedocumented in this encounter Care Teams Brand Ambassador Promotional Model Relationship Specialty Start Date End Date Rhea Martinez MD [facility] [place] [address] [place] MD PCP - General 07/08/19 documented as of this encounter
--- OUTSIDE RECORDS SUMMARY | 2025-04-23 06:16 | XMS_ITS | Patient Health Record ---
Author Organization [facility] Address [address] [place] [address] Care Team Providers Care Nylon Winder Name Role Phone Rhea Martinez Primary Care Provider UnavailRachele Andersen Unavailable [phone] David Ndiaye Unavailable [phone] Vivienne Greene Unavailable [phone] Allergies Allergen (clinical drug ingredient) Drug/Non Drug [...] Problem Acquired hammer toe of right foot ([id number] 87872) Other hammer toe(s) (acquired), right foot (M20.41) Active confirmed Response to treatment,I mprovement Problem Acquired hammer toe of left foot ([id number] 79850) Other hammer toe(s) (acquired), left foot (M20.42) Active confirmed Response to treatment,I mprovement Vital Signs Blood pressure diastolic 80 mm Hg 02/13/2025 Height 5ft 3in in 02/13/2025 Blood pressure systolic 120 mm Hg 02/13/2025 Weight 109 lbs 02/13/2025 BMI 19.31 kg/m2 02/13/2025 Procedures Procedure Date Ordered Date Performed Result Body Sit e 99573-XFHMMEG NAIL, 6 OR MORE 08/25/2024 N/A 70560-YVOV SKIN LESIONS, OVER 4 08/25/2024 N/A Encounters Encounter Location Date Provider Diagnosis [facility] [place] [address] [place] [address] 06/02/2024 David Ndiaye Other viral warts B07.8 [...] right foot M20.41 and Ingrowing nail L60.[address] [address] 08/25/2024 Vivienne Greene Type 2 diabetes mellitus with diabetic polyneuropathy E11.42 ; Tinea unguium B35.1 ; Other hammer toe(s) (acquired), right foot M20.41 and Other hammer toe(s) (acquired), left foot M20.[address] [address] 11/14/2024 Rachele Uribe Type 2 diabetes mellitus with diabetic polyneuropathy E11.42 and Tinea unguium B35.[address] [address] 02/13/2025 Rachele Uribe Type 2 diabetes mellitus with diabetic polyneuropathy E11.42 and Tinea unguium B35.[address] [address] 07/03/2024 David Senthil Type 1 diabetes mellitus with diabetic polyneuropathy [...] Treatment Pending Test Test Name Order Date [id number]-CWXLLWC NAIL, 6 OR MORE 08/25/2024 66855-FDEX SKIN LESIONS, OVER 4 08/25/20 24 49737-UETX SKIN LESIONS, OVER 4 09/20/19 89921-HXQR SKIN LESIONS, OVER 4 11/24/19 23 33226-INOC SKIN LESIONS, 2 TO 4 02/02/20 Next Appt Details Provider Name:Rachele cannon, 05/22/2025 01:30:00 PM, [address] [place] [address], [phone], Insurance Providers Payer Name Payer Address Payer Phone Subscriber Number Group Number Insured Name Patient Relationship to Insured Coverage Start Date Coverage End Date Medicare National [facility]t [facility] [address] [place] [address] [id number] Simone Mir Self - patient is the insured Medical (General) History Medical History History ICD Code Arthritis Back,Hip,and Knee pain Broken bones CAD (Cholesterol) type I diabetes Gall bladder problems Heart disease High blood pressure Kidney disease Lung disease COPD Surgical History Surgery Date(Month/Year) appendectomy Gall bladder removal hernia surgery Orthopedic Surgery- hip, elbow, leg Hospitalization History Reason Date(Month/[place] [facility]16[place]
--- OUTSIDE RECORDS SUMMARY | 2025-04-23 06:17 | XMS_ITS | Clinical Summary ---
Author Organization [facility] Address [address] [place] [address] Phone Care Team Providers Care Associate Account Director Name Role Phone Rhea Martinez MD Unavailable [phone] Kristy Mcbride MD Unavailable [phone] Rhea Martinez MD Primary Care Provider [phone] Allergies Active Allergy Reactions Criticality Noted Date [...] length cannula, he is advised to contact [facility] to discuss his order since we [...] and in 6 months to meet with [place] Assessment & Plan (10/13/2024 4:15 PM EST): [...] and in 6 months to meet with [place] Assessment & Plan (09/06/2020 10:52 PM EST): [...] times and a slight reduction in the senior ux developer hours to reduce risk of hypoglycemia at [...] Description 04/13/2025 2:00 PM EDT Office Visit [facility] [address] [place] [address] [place] [address] Kristy Mcbride MD 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); Type 1 diabetes mellitus with diabetic neuropathy; Type 1 diabetes mellitus with diabetic peripheral angiopathy without gangrene; Insulin pump in place; Primary hypertension; Hyperlipidemia, unspecified hyperlipidemia type 04/08/2025 Telephone [facility] [address] [place] [address] [place] [id number] Marisa Monsalve MA CLINICAL NOTES 02/09/2025 Telephone [facility] [address] [place] [address] Marisa Monsalve MA LMN FOR PUMP SUPPLIES [...] Info) Description 07/20/2025 1:00 PM EST Nutrition [facility] [address] [place] [address] [place] [address] Kristy Mcbride MD [address] [place] [address] Laura Parham LDN [address] [place] [address] 10/12/2025 2:40 PM EST Office Visit [facility] [address] [place] [address] Kristy Mcbride MD [address] [place] [address] Health Maintenance Due Date Last Done Comments [...] Hemoglobin A1c 7.3(A) 4.2 - 5.6 % [facility] Other 04/13/2025 2:26 PM EDT us Kristy Mcbride MD POINT OF CARE TEST ORDERABLES F inal Result Performing Organization Address [facility]/ZIP Co de Phone Number [address] [address], [facility] * (ABNORMAL) Basic metabolic panel (12/25/2022 2:05 PM EDT) SODIUM 138 133 - 146 mmol/L [facility] CHLORIDE 102 96 - 108 mmol/L [facility] POTASSIUM 5.2(H) 3.3 - 5.1 mmol/L [facility] CO2 28 21 - 35 mmol/L [facility] BUN 29(H) 6 - 19 mg/dL [facility] CREATININE 1.50 0.5 - 1.5 mg/dL [facility] GLUCOSE 231(H) 70 - 99 mg/dL [facility] CALCIUM 9.2 8.4 - 10.3 mg/dL [facility] EGFR 52(L) >59 mL/min/1.7 3m2 [facility] Comment:Estimated glomerular filtration rate calculated using the CKD-EPI refit equation. ANION GAP 13 10 - 20 mmol/L [facility] Blood 12/25/2022 2:05 PM EDT 12/25/2022 2:08 PM EDT us Rhea Martinez MD LAB BLOOD ORDERABLES Final Re sult [address] [address] from Last 3 Months or Most Recently Relevant to Health Maintenance Insurance MEDICARE PART A & B [id number] [place], [place] [id number] MEDICARE PART A & B [id number] [place], [place] [id number] MEDICARE PART A & [address] [place], [place] [id number] MEDICARE PART A & B [facility] MEDIC[facility] PART A & B [facility] MED[facility] A & B [facility] MEDIC[facility] PART A & B [facility] MEDIC[facility] PART A & B [facility] MEDICARE PART A & B [facility] Care Teams Associate Account Director Relationship Specialty Start Date End Date Rhea Martinez MD [address] [place] [address] PCP - General Internal Medicine 07/04/17 Rhea Martinez MD [address] [place] [address] Historical LMR Provider 06/18/17 Kristy Mcbride MD [address] [place] [address], [address] [place], [place] [id number] [email or web address] Historical LMR Provider 06/18/17 Additional Source Comments The information contained in this document represents components of the legal health record. It is not the complete legal health record.[facility]
--- OUTSIDE RECORDS SUMMARY | 2025-04-23 06:17 | XMS_ITS | Clinical Summary ---
Author Organization [employer] Address [address] [facility] [address] [place] [address] Care Team Providers Care Compliance Representative Dealer Name Role Phone Unavailable Primary Care Provider [...] Payer (Ef fective 2022-Present) Name:Simone Quintana Member ID:[id number] Relation to Subscriber:Self Name:Simone Quintana Subscriber ID:[id number] Payer ID:STATE Group ID:Not on file Type:Medicare Address: [facility] [address] [address] [place]
--- OUTSIDE RECORDS SUMMARY | 2025-04-23 06:17 | XMS_ITS | Patient Health Record ---
Author Organization [facility] Address [address] [place] [address] Care Team Providers Care Wood Cutter Name Role Phone Rhea Martinez MD Primary Care Provider Dylan Ayala Unavailable [phone] Reason For Referral No Information Medications Medication [...] Problem Status W/U Status Risk Notes Problem [id number] Encounter for screening for malignant neoplasm of colon (Z12.11) Active confirmed Problem 34921579 Constipation, unspecified constipation type (K59.00) Active confirmed Plan Of Treatment Future Test Test Name Order Date COLONOSCOPY 06/04/2020 Insurance Providers Payer Name Payer Address Payer Phone Subscriber Number Group Number Insured Name Patient Relationship to Insured Coverage Start Date Coverage End Date MEDICARE OF KARINA ERIKA ANA MARIA [address] [id number] GAVIOTA MCKINNEY Self - patient is the insured MEDICAID OF [employer] [address] [place] [phone] [id number] GAVIOTA MCKINNEY Self - patient is the insured Medical (General) History Medical History History ICD Code Hyperlipidemia Hypertension IDDM--has an Insulin pump COPD Denies [place] nor CVA Sees a chemical process equipment operator for proteinuria Constipation Neg. screening colonoscopy in 01/2010 Decreased vision right eye Surgical History Surgery Date(Month/Year) cholecystectomy appendectomy orthopedic surgeries umbilical hernia repair Retina laser surgery both eyes
== END 2025-04-23 06:15 | disposition home or self-care (01) ==
LOC: CF 06:14
PROVIDERS: Visit Provider Internal Medicine
DX: M67.951 Unspecified disorder of synovium and tendon, right thigh (principal); Z87.891 Personal history of nicotine dependence; E10.42 Type 1 diabetes mellitus with diabetic polyneuropathy; N40.0 Benign prostatic hyperplasia without lower urinary tract symptoms; J43.9 Emphysema, unspecified; I25.10 Atherosclerotic heart disease of native coronary artery without angina pectoris; E78.00 Pure hypercholesterolemia, unspecified; I12.9 Hypertensive chronic kidney disease with stage 1 through stage 4 chronic kidney disease, or unspecified chronic kidney disease; E10.22 Type 1 diabetes mellitus with diabetic chronic kidney disease; N18.2 Chronic kidney disease, stage 2 (mild)
CPT/HCPCS: 99212

== ENCOUNTER 2025-04-23 09:33 | Outpatient (AMB) | payer MEDICARE, MEDICAID, SELFPAY ==
[2025-04-23 09:38] VITALS: PULSE 66; RESP 18; O2SAT 94; BMI 20.3
--- NOTE | 2025-04-23 09:38 | A.OFFPC_ITS ---
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: No Accompanied by: Self / Same As Patient Allergies adalimumab (From Humira) Adverse Reaction (Verified 04/23/25 09:42) sleepy pregabalin (From Lyrica) Adverse Reaction (Verified 04/23/25 09:42) Dizzyness Tobacco use date assessed: 04/23/25 Fall risk assessment: No Falls in past year Last assessed Fall Risk: 04/23/25 Dental Screening Dental Screen Date: 04/23/25 Did you have a dental visit in the last 12 months?: Yes Did you have a dental problem in the last 6 months where you did not have access to dental care?: No Was dental information given to patient?: Patient has dentist [facility] Medical History Urinary frequency COPD exacerbation Bloating Hypoglycemia Chronic constipation Tinea pedis, left Hx of fracture of femur Eczema Cholelithiasis Carpal tunnel syndrome Ankle fracture Diabetes mellitus type 1 Chronic kidney disease (CKD) stage G2/A3, mildly decreased glomerular filtration rate (GFR) between 60-89 mL/min/1.73 square meter and albuminuria creatinine ratio greater than 300 mg/g Hypercholesterolemia Diabetic neuropathy COPD (chronic obstructive pulmonary disease) Coronary artery disease Hypertension Surgical History Hx of colonoscopy Hx of eye surgery Hx of appendectomy H/O umbilical hernia repair History of cholecystectomy History of elbow surgery History of carpal tunnel release Family History Father Hypertension Stroke CVD (cerebrovascular disease) Mother Hypertension CVD (cerebrovascular disease) Diabetes Sister HX: breast cancer Paternal Grandfather Colon cancer Social History Housing: House Alcohol intake: former Patient Tobacco Use Status: Former Tobacco user Tobacco use type: Cigarette Years Smoked: 2002 quit 08/12 e-Cigarette/Vaping Use: Never Used Second Hand Smoke Exposure: No Substance Use Type: Marijuana service: No Current occupational status: disabled Cognitive needs: No Hearing needs: No Vision needs: Yes Questionnaire PHQ-9 Over the last 2 weeks, how often have you been bothered by any of the following problems? 1. Little interest or pleasure in doing things: several days 2. Feeling down, depressed, or hopeless: not at all 3. Trouble falling or staying asleep, or sleeping too much: several days 4. Feeling tired or having little energy: several days 5. Poor appetite or overeating: several days 6. Feeling bad about yourself - or that you are a failure or have let yourself or your family down: not at all 7. Trouble concentrating on things, such as reading the newspaper or watching television: not at all 8. Moving or speaking so slowly that other people could have noticed. Or the opposite - being so fidgety or restless that you have been moving around a lot more than usual: not at all 9. Thoughts that you would be better off or of hurting yourself in some way: not at all Total score: 4 Depression Screening Interpretation: Positive Depression Screening Done: Yes Source: Developed by Drs. Dylan Mendez, Arabella Griffin, Mick Valero and colleagues, with an educational teto from [employer]. Thrive Questionnaire Date Thrive assessed: 04/23/25 I am a: Patient What is your living situation today?: I have a steady place to live Within the past 12 months, did the food you bought not last and you didn't have the money to get more?: Never true Within the past 12 months, did you worry whether your food would run out before you got money to buy more?: Never true Do you have trouble paying for medicines?: No Do you have trouble getting transportation to medical appointments?: No Do you have trouble paying your heating and electricity bill?: No Do you have trouble taking care of your child, family member or friend?: No Do you have trouble with day-to-day activities such as bathing, preparing meals, shopping, managing finances, etc.?: No Are you currently unemployed and looking for a job?: Yes Are you interested in more education?: No Please select the resources that you would like help with: None Currently or been in a relationship where the following occur: No concerns reported THRIVE Score: 0 AUDIT C Alcohol Use Questionnaire (AUDIT-C) 1. How often do you have a drink containing alcohol?: Never Total Score: 0 BARRY-7 AMB Questionnaire BARRY-7 Date BARRY - 7 assessed: 04/23/25 Feeling nervous, anxious, or on edge: 0 = Not at all Not being able to stop or control worryin = Not at all Worrying too much about different things: 0 = Not at all Trouble relaxin = Not at all Being so restless that it is hard to sit still: 0 = Not at all Becoming easily annoyed or irritable: 0 = Not at all Feeling afraid as if something awful might happen: 0 = Not at all Total BARRY-7 score (0-4 normal; 5-9 mild; 10-14 moderate; 15-21 severe): 0 Source: Developed by Drs. Dylan Mendez, Arabella Griffin, Mick Valero and colleagues, with an educational teto from [employer]. Physical exam (Primary Care) Vital Signs: Last Vital Signs Resp 18 04/23/25 09:38 Oxygen Delivery Method Room Air 04/23/25 09:38 BMI result Body Mass Index 20.3 Tobacco/Smoking Status: Tobacco use Status Tobacco use date assessed 01/13/25 01/13/25 14:00 Patient Tobacco Use Status Former Tobacco user 01/13/25 14:00 Tobacco use type Cigarette 01/13/25 14:00 e-Cigarette/Vaping Use Never Used 01/13/25 14:00 Depression Screening Interpretation: Positive Thrive Assessment: Date of Thrive Assessment Date Thrive assessed 01/13/25 04/23/25 09:34 Currently or been in a relationship where the following occur: No concerns reported Const General: alert; No acute distress Eyes Conjunctivae: conjunctivae normal Resp Auscultation: clear to auscultation bilaterally Cardio Rate: regular rate Rhythm: regular rhythm GI Inspection: Yes normal to inspection Extrem General: Yes normal to inspection and No edema Coding Level of Care Code Est Pt Level 4 (54587) Complex EM visit Add On G2211 Diagnoses Type 1 diabetes mellitus with diabetic polyneuropathy E10.42 Diabetes mellitus complication detail: with polyneuropathy Diabetes mellitus complication status: with neurologic complications Chronic kidney disease (CKD) stage G2/A3, mildly decreased glomerular filtration rate (GFR) between 60-89 mL/min/1.73 square meter and albuminuria creatinine ratio greater than 300 mg/g N18.2 Enlarged prostate N40.0 Greater trochanteric bursitis of right hip M70.61 Pulmonary emphysema, unspecified emphysema type J43.9 COPD type: emphysema Emphysema type: unspecified Coronary artery disease involving [place] coronary artery of [place] heart without angina pectoris I25.10 Associated angina: without angina Coronary Disease-Associated Artery/Lesion type: [place] artery [place] vs. transplanted heart: [place] heart Essential hypertension I10 Hypertension type: essential hypertension Hypercholesterolemia E78.00 Assessment & Plan Assessment & Plan (1) Diabetes mellitus type 1: Comment: Insulin Pump Dr. Rae Camargo Code(s): E10.9 - Type 1 diabetes mellitus without complications Category: Medical Qualifiers: Diabetes mellitus complication detail: with polyneuropathy Diabetes mellitus complication status: with neurologic complications Qualified Code(s): E10.42 - Type 1 diabetes mellitus with diabetic polyneuropathy Plan: Continues to follow-up with endocrinology. Decrease the amount of carbohydrate intake, pasta, bread, rice and potatoes are all sugar and that is aside from all the sweet stuff, remember that fruits are good but they are Sweet also. Last hemoglobin A1c was 7.3. Patient is on the insulin pump (2) Chronic kidney disease (CKD) stage G2/A3, mildly decreased glomerular filtration rate (GFR) between 60-89 mL/min/1.73 square meter and albuminuria creatinine ratio greater than 300 mg/g: Code(s): N18.2 - Chronic kidney disease, stage 2 (mild) Category: Medical Plan: Keep well hydrated avoid NSAIDs patient will need a complete blood work in the next 3 months (3) Enlarged prostate: Code(s): N40.0 - Benign prostatic hyperplasia without lower urinary tract symptoms Category: Medical Plan: Continue to follow-up with urology patient is on bethanechol Myrbetriq, finasteride and tamsulosin (4) Greater trochanteric bursitis of right hip: Code(s): M70.61 - Trochanteric bursitis, right hip Category: Medical Plan: Patient has been seeing pain management has had injections before already and planned on PRP injections (5) COPD (chronic obstructive pulmonary disease): Comment: HE IS A KNOWN CASE OF SEVERE COPD, REMAINS STABLE, BUT DOES COMPLAIN OF ONGOING COUGH. AND MILD DYSPNEA ON WALKING. Code(s): J44.9 - Chronic obstructive pulmonary disease, unspecified Category: Medical Qualifiers: COPD type: emphysema Emphysema type: unspecified Qualified Code(s): J43.9 - Emphysema, unspecified Plan: Continuing with Spiriva Breo albuterol (6) Coronary artery disease: Code(s): I25.10 - Atherosclerotic heart disease of [place] coronary artery without angina pectoris Category: Medical Qualifiers: Associated angina: without angina Coronary Disease-Associated Artery/Lesion type: [place] artery [place] vs. transplanted heart: [place] heart Qualified Code(s): I25.10 - Atherosclerotic heart disease of [place] coronary artery without angina pectoris Plan: Control the cholesterol, weight, blood pressure, diabetes cholesterol to retest in 3 months (7) Hypertension: Code(s): I10 - Essential (primary) hypertension Category: Medical Qualifiers: Hypertension type: essential hypertension Qualified Code(s): I10 - Essential (primary) hypertension Plan: Continue with blood pressure medication. Decrease salt intake and exercise takes lisinopril 40 mg once a day carvedilol 25 mg twice a day (8) Hypercholesterolemia: Code(s): E78.00 - Pure hypercholesterolemia, unspecified Category: Medical Plan: Avoid fried foods, chicken skin, eggs, butter margarine, pastries and meat. Be it pork or beef they have a lot of cholesterol LDL goal of less than 70 and triglyceride of less than 150 on rosuvastatin 40 mg once a day Plan History of Present Illness The patient is a 64-year-old male presenting for a follow-up visit. The patient has a history of diabetes mellitus type 1, managed with an insulin pump, and the last hemoglobin A1c was 7.3% as of April 13, 2025. He continues to follow up with endocrinology for diabetes management. Coronary artery disease and hypertension are managed with lisinopril and carvedilol, though blood pressure was slightly elevated during the visit. Chronic obstructive pulmonary disease (COPD) is managed with Breo, Spiriva, and albuterol, with follow-ups conducted by pulmonary specialists. The patient was last seen in April 2025 for a cough. Diabetic neuropathy is managed with narcotic pain medication, and the patient has attended pain management sessions, receiving a right sacroiliac joint injection on April 06, 2025. Platelet-rich plasma therapy was discussed but is not covered by insurance. Hypercholesterolemia is managed with rosuvastatin, with the last LDL cholesterol at 58 mg/dL in June 2024. Chronic kidney disease is monitored with regular blood work, and the patient is advised to stay well-hydrated and avoid NSAIDs. The last renal function test showed a creatinine level of 1.4 mg/dL. Benign prostatic hyperplasia (BPH) and nephrolithiasis are managed with tamsulosin, bethanechol, sildenafil, and Myrbetriq, with follow-ups in urology. The patient was last seen in February 2025. Trochanteric bursitis of the right hip and tendinopathy of the right gluteus medius are managed with orthopedic consultations and injections. Health Maintenance - Colon cancer screening up to date as of 2019 - Pneumonia and tetanus vaccinations are current - Shingles vaccination completed Social History Review of Systems - Cardiovascular: Reports elevated blood pressure during the visit. Denies chest pain or palpitations. - Respiratory: Reports cough. Denies dyspnea or wheezing. - Neurological: Reports diabetic neuropathy. Denies headaches or dizziness. Physical Exam Results - Labs: Hemoglobin A1c 7.3% as of April 13, 2025 - Labs: LDL cholesterol 58 mg/dL as of June 2024 - Labs: Creatinine 1.4 mg/dL Plan The patient will continue diabetes management with an insulin pump and endocrinology follow-ups, with blood work scheduled in three months. Coronary artery disease and hypertension will be managed with lisinopril and carvedilol, with regular blood pressure monitoring and lifestyle advice for cardiovascular health. COPD treatment will continue with Breo, Spiriva, and albuterol, with pulmonary follow-ups as needed. Pain management for diabetic neuropathy will include ongoing sessions and consideration of platelet-rich plasma therapy, although insurance does not cover it. Narcotic pain medication will continue as prescribed. Hypercholesterolemia will be managed with rosuvastatin, aiming for an LDL cholesterol goal of less than 70 mg/dL, with re-evaluation in three months. Chronic kidney disease will be monitored with regular blood work, and the patient is advised to stay well-hydrated and avoid NSAIDs. For benign prostatic hyperplasia and nephrolithiasis, the patient will continue current medications and follow up with urology. Orthopedic management for trochanteric bursitis and tendinopathy will include continued consultations and injections as needed. Patient was informed and verbally consented to the use of an ambient scribe for clinic note documentation during this visit. Discussion Notes I discussed with the patient the management of diabetes mellitus type 1, emphasizing the importance of regular endocrinology follow-ups and monitoring of hemoglobin A1c levels. We reviewed the treatment plan for coronary artery disease and hypertension, including the continuation of lisinopril and carvedilol, and the need for regular blood pressure checks. The patient was informed about the ongoing management of COPD with Breo, Spiriva, and albuterol, and the importance of pulmonary follow-ups. We discussed pain management options for diabetic neuropathy, including the potential use of platelet-rich plasma therapy, although it is not covered by insurance. The patient was advised to continue rosuvastatin for hypercholesterolemia, with a goal of maintaining LDL cholesterol below 70 mg/dL, and to re-evaluate cholesterol levels in three months. I advised the patient to stay well-hydrated and avoid NSAIDs to manage chronic kidney disease, and to continue current medications for benign prostatic hyperplasia and nephrolithiasis with urology follow-ups. Patient Instructions - Continue using the insulin pump and follow up with endocrinology. - Schedule blood work in three months to monitor diabetes and cholesterol levels. - Take lisinopril and carvedilol as prescribed and monitor blood pressure regularly. - Continue COPD medications: Breo, Spiriva, and albuterol. - Attend pain management sessions and discuss platelet-rich plasma therapy options. - Maintain hydration and avoid NSAIDs to support kidney health. - Continue medications for BPH and nephrolithiasis and follow up with urology. Orders: Orders Free T4 (Free Thyroxine) 3 Months E10 - Type 1 diabetes mellitus with diabe tic chronic kidney disease Lipid Panel 3 Months E10 - Type 1 diabetes mellitus with diabetic chronic kidney disease, E78.00 - Pure hypercholesterolemia, unspecified Prostate Specific Antigen Scr 3 Months E10 - Type 1 diabetes mellitus with diabetic chronic kidney disease Magnesium 3 Months E10. - Type 1 diabetes mellitus with diabetic chronic kidney disease Complete Blood Count Auto Diff 3 Months E10 - Type 1 diabetes mellitus with diabetic chronic kidney disease Comprehensive Met. Panel 3 Months E10 - Type 1 diabetes mellitus with diabetic chronic kidney disease Thyroid Stimulating Hormone 3 Months E10 - Type 1 diabetes mellitus with diabetic chronic kidney disease Creatinine Urine 3 Months E10. - Type 1 diabetes mellitus with diabetic chronic kidney disease, E11.65 - Type 2 diabetes mellitus with hyperglycemia Microalbumin, Random (w Creat) 3 Months E10. - Type 1 diabetes mellitus with diabetic chronic kidney disease, E11.65 - Type 2 diabetes mellitus with hyperglycemia Vitamin B12 and Folate 3 Months E10.22 - Type 1 diabetes mellitus with diabetic chronic kidney disease Hemoglobin A1c 3 Months E10.22 - Type 1 diabetes mellitus with diabetic chronic kidney disease Medications: Refilled sennosides-docusate sodium 8.6-50 mg (Senna Plus) 2 tab-caps (2 x 8.6-50 mg) PO BEDTIME 60 tabs 3RF K59.00 - Constipation, unspecified hydrocodone-acetaminophen 5-325 mg pain med temporarily to help with pain 09/2024 1 tab PO BID PRN 60 tabs 0RF pain 30 days E10.42 - Type 1 diabetes mellitus with diabetic polyneuropathy
== END 2025-04-23 10:00 | disposition home or self-care (01) ==
LOC: HO.HMCH 09:34
PROVIDERS: PCP Internal Medicine; Visit Provider Internal Medicine
DX: I12.9 Hypertensive chronic kidney disease with stage 1 through stage 4 chronic kidney disease, or unspecified chronic kidney disease (principal); E10.42 Type 1 diabetes mellitus with diabetic polyneuropathy; J43.9 Emphysema, unspecified; N18.2 Chronic kidney disease, stage 2 (mild); N40.0 Benign prostatic hyperplasia without lower urinary tract symptoms; M70.61 Trochanteric bursitis, right hip; I25.10 Atherosclerotic heart disease of native coronary artery without angina pectoris; E78.00 Pure hypercholesterolemia, unspecified

== ENCOUNTER 2025-04-23 12:59 | Outpatient (AMB) | payer MEDICARE, MEDICAID, SELFPAY ==
[2025-04-23 13:24] VITALS: BP 151/77; PULSE 63; RESP 16; O2SAT 95; BMI 20.3
--- NOTE | 2025-04-23 13:24 | MHC.OFFVIS ---
Vital Signs 04/23/25 13:24 04/23/25 14:23 Height 5 ft 2 in Weight 111 lb BMI 20.3 BP 151/77 H 182/77 H Blood Pressure Location Lt brachial Lt brachial Position Sitting Sitting Respiration 16 16 Pulse 63 62 Pulse Source Pulse Oximeter Pulse Oximeter Pulse Oximetry (%) 95 95 Oxygen Delivery Method Room Air Room Air Intake Visit Reasons: Right bursa PRP Allergies adalimumab (From Humira) Adverse Reaction (Verified 04/23/25 09:42) sleepy pregabalin (From Lyrica) Adverse Reaction (Verified 04/23/25 09:42) Dizzyness HPI HPI Right bursa PRP: Details: Patient presents for scheduled procedure. Denies any recent cough, cold, infection, fever or other significant changes in medical history since last office visit. [facility] Medical History Urinary frequency COPD exacerbation Bloating Hypoglycemia Chronic constipation Tinea pedis, left Hx of fracture of femur Eczema Cholelithiasis Carpal tunnel syndrome Ankle fracture Diabetes mellitus type 1 Chronic kidney disease (CKD) stage G2/A3, mildly decreased glomerular filtration rate (GFR) between 60-89 mL/min/1.73 square meter and albuminuria creatinine ratio greater than 300 mg/g Hypercholesterolemia Diabetic neuropathy COPD (chronic obstructive pulmonary disease) Coronary artery disease Hypertension Surgical History Hx of colonoscopy Hx of eye surgery Hx of appendectomy H/O umbilical hernia repair History of cholecystectomy History of elbow surgery History of carpal tunnel release Family History Father Hypertension Stroke CVD (cerebrovascular disease) Mother Hypertension CVD (cerebrovascular disease) Diabetes Sister HX: breast cancer Paternal Grandfather Colon cancer Social History Housing: House Alcohol intake: former Patient Tobacco Use Status: Former Tobacco user Tobacco use type: Cigarette Years Smoked: 2002 quit 08/12 e-Cigarette/Vaping Use: Never Used Second Hand Smoke Exposure: No Substance Use Type: Marijuana service: No Current occupational status: disabled Cognitive needs: No Hearing needs: No Vision needs: Yes Physical Exam Vital Signs: Last Vital Signs Pulse 62 04/23/25 14:23 Resp 16 04/23/25 14:23 BP 182/77 H 04/23/25 14:23 Pulse Ox 95 04/23/25 14:23 Oxygen Delivery Method Room Air 04/23/25 14:23 BMI result Body Mass Index 20.3 Office Procedures Platelet Rich Plasma Injection PRP Joint Injection After informed written consent was obtained, pre-procedure oxygen saturation, heart rate, and blood pressure were recorded. An 18 gauge butterfly needle was used to obtain 50 mL of whole blood from the right antecubital fossa. This was then mixed with 9 mL anticoagulant citrate dextrose solution. The 60 mL mixture was counter balanced to within 1 g and spun at 3500 rpm for 10 minutes. Platelet poor plasma was then drawn using a bench top press model. 6 mL of slightly leukocyte rich PRP was isolated in a 10 cc syringe. A 25 gauge needle was used to inject the PRP under US guidance to the right GTM tendon using an inplace technique. Image saved. Primary Site: other (right gluteus medius tendon) Prep: site was prepped using sterile technique Approach Used: other (US guided) Procedure: but had some pain with the injection XCELL Platelet Plasma - [id number] 60 mL All charges added?: Procedure code (CPT) selection complete Assessment & Plan Assessment & Plan (1) Tendinopathy of right gluteus medius: Code(s): M67.951 - Unspecified disorder of synovium and tendon, right thigh Category: Medical Plan Patient is status post right gluteus medius tendon PRP injection. Patient tolerated procedure well and was discharged home in stable condition with discharge instructions. All questions were answered. We will follow-up via telephone or in clinic to assess response to therapy. A follow-up appointment was made during today's visit. Orders: Orders FL guidance in treatment room Today M25.551 - Pain in right hip AMB Platelet Rich Plasma (PRP) Injection Today M25.551 - Pain in right hip Coding Level of Care Code Procedure Only Diagnoses Tendinopathy of right gluteus medius M67.951 CPT Codes XCELL Kit 60mL ([id number])
[2025-04-23 14:23] VITALS: BP 182/77; PULSE 62; RESP 16; O2SAT 95
== END 2025-04-23 14:24 | disposition home or self-care (01) ==
LOC: HO.PMCPRC 12:59
PROVIDERS: PCP Internal Medicine; Visit Provider Internal Medicine
DX: M67.951 Unspecified disorder of synovium and tendon, right thigh (principal)
CPT/HCPCS: 0232T

== ENCOUNTER 2025-05-27 10:45 | Outpatient (AMB) | payer MEDICARE, MEDICAID, SELFPAY ==
--- OUTSIDE RECORDS SUMMARY | 2025-05-22 09:30 | XMS_ITS ---
Author Organization [facility] polina Jackson Address [address] [place] [address] Care Team Providers Care Operational Assistant Name Role Phone Rhea Martinez Primary Care Provider Rachele Vaca Unavailable [phone] Allergies Allergen (clinical drug ingredient) Drug/Non Drug Allergy documented on EMR Reaction Allergy Type Onset Date Status acetaminophen Tylenol Unknown Drug Allergy Act john Cortisone raises BP Drug Allergy Active REASON FOR VISIT At Risk Footcare Medications Medication SIG (Take, Route, Frequency, Duration) Notes Start Date End Date Status Rosuvastatin Calcium Active Extra Depth Diabetic Shoes with 3 Pair Custom heat-molded multi-density innersoles for 1 year Dx: 09/20/2022 Not-Taking Carvedilol 25 MG 1 tablet with food Oral Twice a day; Duration: 30 days Active Extra Depth Diabetic Shoes with 3 Pair Custom heat-molded multi-density innersoles for 1 year Dx: Active Potassium Active carBAMazepine Active Gabapentin Active Spiriva HandiHaler A ctive Insulin Active Lisinopril Active Bethanechol Chloride Active Breo Ellipta Active [...] ast year? No Points 0 Interpretation Negative Vital Signs Height 5ft 3in in 05/22/2025 Weight 112 lbs 05/22/2025 BMI 19.84 kg/m2 05/22/2025 Blood pressure systolic 120 mm Hg 05/22/20 25 Blood pressure diastolic 80 mm Hg 025 Encounters Encounter Location Date Provider Diagnosis [facility] [address] [address] 05/22/2025 Rachele Uribe Type 2 diabetes mellitus with diabetic polyneuropathy E11.42 and Tinea unguium B35.1 Assessments Encounter Date Diagnosis (ICD Code) Assessment Notes Treatment Notes Treatment Clinical Notes Section Notes 05/22/2025 Type 2 diabetes mellitus with diabetic polyneuropathy (ICD-10 - E11.42) 05/22/2025 Tinea unguium (ICD-10 - B35.1) Plan Of Treatment Next Appt Details Follow Up: 3 Months, Reason: Provider Name:Rachele cannon, 09/08/2025 02:45:00 PM, [address] [place] [address], [phone], Procedure Notes * Category Sub-Category Detail Notes [...] of a nail nipper and/or dremel-type grinder hand, to a more viable healthy nail plate [...] to maintain effectiveness in symptomatic relief - 80128 Progress Notes * Hattie MCKINNEY:1960 (64 yo M)Acc No.[id number]:05/22/2025 Progress Note Patient: Simone HWANG Provider: Joann Uribe DPM :1960 A ge:64 Y S ex:Male Date:05/22/2025 Address:[address] [place] [address] [place], [id number] Pcp:Rhea Martinez Subjective: * Chief Complaints: * A t Risk Footcare * HPI: A t Risk footcare: Pt States Last PCP Visit: D ate 0 04/03/2025 * ROS: G eneral/Constitutional: Nausea d enies. V omiting d enies. H shima Thirst d enies. L oss appetite d enies. C hills d enies. F atigue d enies.?Fever d enies. N ight Sweats d enies. U nexplained weight loss d enies. U nexplained weight gain d enies. H EENTM: Dentures d enies. D izziness d enies. G lasses/contacts a dmits. R etinopathy a dmits. B lurred/double vision d enies. T MJ?denies. D ischarge/drainage d enies. I mplants d enies. S ore throat d enies. D ental implants a dmits. H lawrence of hearing d enies. D ifficulty chewing/swallowing/speaking d enies. N ose bleeds d enies. S ore mouth d enies. ? R espiratory: On Oxygen d enies. P neumonia/pleurisy d enies.?Bronchitis d enies. E mphysema d enies. C oughing d enies. C ough blood?denies. S hortness of breath a dmits. W heezing d enies. C ardiovascular: Pacemaker d enies. M CASK MAKER d enies. W PW d enies. C HF d enies. H eart attack d enies. S eptal defect d enies. R apid beat d enies. C hest pain d enies. A trial Fib. d enies. M urmur/Palpitations d enies. G astrointestinal: Hemorrhoids d enies. S tomach/Abdominal pain d enies. D ark blood stool d enies. I rritable bowel d enies. C onstipation a dmits. D iarrhea d enies. H ematology: Swelling d enies. C lots d enies. V aricose Veins d enies. B ruising d enies. B leeding problem d enies. G enitourinary: Blood urine d enies. F requent/Painfu/urination/bladder control a dmits. K idney stones a dmits. I nfection (UTI) d enies. N ephropathy a dmits. s ex trans dis (STD) d enies. P rostate a dmits. M usculoskeletal: Hammertoes d enies. B unions d enies. B ack Pain d enies. M uscle Cramps/ Resting d enies. M uscle cramps / walking a dmits.?Generalized aches and pains a dmits. W eakness d enies. I nteg.: Hays d enies. S cars d enies. C orns/calluses?admits. I ngrown nails a dmits. P ainful nails d enies. O pen Sores d enies. R ashes d enies. N eurologic: Difficulty sleeping a dmits. B rain disorder d enies. N umbness d enies. B alance trouble d enies. C onfusion d enies. F ainting/blackouts d enies. T ingling d enies. T remors d enies. * Medical History: * Surgical History: a ppendectomy Gall bladder removal hernia surgery Orthopedic Surgery- hip, elbow, leg * Hospitalization/Major Diagno stic Procedure: [facility] ER- breathing issues 08/16/24 * Family History: M other: , foot problems, diagnosed with Diabetic - NIDDM, Unspecified essential hypertension, Family history of arthritis. F ather: , diagnosed with Unspecified essential hypertension, Unspecified cerebral artery occlusion with cerebral infarction. S iblings: diagnosed with Other malignant neoplasm of unspecified site, Unspecified heart disease. * Social History: T obacco Use: T obacco use other than smoking A re you an other tobacco user? N o Tobacco Control (Standard) T obacco use: N onsmoker A dditional Findings: Tobacco non-user C urrent nonsmoker M iscellaneous: C affeine: yes, frequency:, 4 cups per day. Children: no, none. Exercise: yes, limited excersize. Marital status: single. 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 D rug/Alcohol: A HARRISON-C (Standard) D id you have a drink containing alcohol in the past year? N o P oints 0 I nterpretation N egative * Medications: T akingPotassium albuterol Bethanechol Chloride Breo Ellipta carBAMazepine Gabapentin Insulin Lisinopril Spiriva HandiHaler Rosuvastatin Calcium Carvedilol 25 MG Tablet 1 tablet with food Oral Twice a day Extra Depth Diabetic Shoes with 3 Pair Custom heat-molded multi-density innersoles for 1 year Dx: Taking Potassium Taking albuterol Taking Bethanechol Chloride Taking Breo Ellipta Taking carBAMazepine Taking Gabapentin Taking Insulin Taking Lisinopril Taking Spiriva HandiHaler Taking Rosuvastatin Calcium Taking Carvedilol 25 MG Tablet 1 tablet with food Oral Twice a day Taking Extra Depth Diabetic Shoes with 3 Pair Custom heat-molded multi- density innersoles for 1 year Dx: Not-Taking/PRNExtra Depth Diabetic Shoes with 3 Pair Custom heat-molded multi-density innersoles for 1 year Dx: Medication List reviewed and reconciled with the patientNot-Taking/PRN Extra Depth Diabetic Shoes with 3 Pair Custom heat-molded multi-density innersoles for 1 year Dx: Medication List reviewed and reconciled with the patient * Allergies: T ylenolCortisone: raises BPyes[Allergies Verified] Objective: * Vitals: H t: 5ft 3in, Wt:112, BMI:19.84, Shoe size: 6.5, BP:120/80mm Hg, BS: 127, Ht-cm: 160.02 cm, Wt-k.8 kg. * P ast Orders: L ab:HEMOGLOBIN A1C (GLYCOHEMOGLOBIN) (Order Date - 04/03/2025) (Collection Date & Time - 05/22/2025 01:41 PM) Value Reference Range HEMOGLOBIN A1C % (HH) 7.3 * Examination: O phthalmology Referral: DIABETES EYE EXAM P rocedure Performed: Y lakia Villavicencio ate of Exam Performed 1 09/03/2023 D iabetic Retinopathy Screening: Y es F indings of Diabetic Eye Exam: r etinopathy N eurological: SENSORY: ( Neuro) Neurological exam demonstrates a loss of protective sensation by an absence of tested sensitivity to 5.07 [place] monofilament at 2 or more sites out of 5 total locations, each foot. N ails: NAILS are: E longated, overgrown, dystrophic, lytic, greater than 3mm thick, discolored and friable with crumbly malodorous subungual debris, with dull to no pain on palpation due to neuropathy, TA, T2, T3, T4, T5, T6, T7, T8, T9. Assessment: * Assessment: 1. T ype 2 diabetes mellitus with diabetic polyneuropathy - E11.42 (Primary) 2 . T inea unguium - B35.1 Plan: * Treatment: * Procedures: D ebride Nail 6-10: Nail debridement D ue to the clinical pathology outlined in the [...] of a nail nipper and/or dremel-type grinder hand, to a more viable healthy nail plate [...] to maintain effectiveness in symptomatic relief - 49157. * Procedure Codes: 1 1721 DEBRIDE NAIL, 6 OR MORE * Preventive Medicine: Screening/Special Tests: F all Risk Screening: N o falls in the past year F ALLS: Screening for Future Fall Risk Have you had two or more falls in the past year? N o Have you had any falls with injury in the past year? N o * Follow Up: 3 Months * Images: * Sign off status: Completed true * Provider: Joann Uribe, DPM Date: 0 05/22/2025 Generated for Cassandra alexis/Norma/Saud on: 0 05/27/2025 01:31 PM EDT History and Physical Notes * HPI (History of Present Illness) Category Sub-Category Detail Notes Category Not es At Risk footcare Pt States Last PCP Visit: Date: Examination Category Sub-Category Detail Notes Category Not es Neurological SENSORY: (Neuro) Neurolog ical exam demonstrates a loss of protective sensation by an absence of tested sensitivity to 5.07 [place] monofilament at 2 or more sites out of 5 total locations, each foot Ophthalmology Referral DIABETES EYE EXAM Procedu re Performed:: Yes Date of Exam Performed: 07/04/2024 Diabetic Retinopathy Screening:: Yes Findings of Diabetic Eye Exam:: retinopa thy Nails NAILS are: Elongated, overg rown, dystrophic, lytic, greater than 3mm thick, discolored and friable with crumbly malodorous subungual debris, with dull to no pain on palpation due to neuropathy, TA, T2, T3, T4, T5, T6, T7, T8, T9
[2025-05-27 10:58] VITALS: BP 122/80; PULSE 78; O2SAT 98; BMI 20.2
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
--- OUTSIDE RECORDS SUMMARY | 2025-05-27 13:31 | XMS_ITS | Encounter Summary ---
Author Organization [facility], Address [address] [place] [address] Phone Care Team Providers Care Director Of Public Relations Name Role Phone Rhea Martinez MD Primary Care Provider [phone] Encounter Details Date Type Department Care Team (Late st Contact Info) Description 08/11/2024 Documentation Only [facility] [address] [place] [address] Margareth Garcia [address] [place] [address] Social History Tobacco Use Types [...] Visit [facility] [address] [place] [address] Rico Lamb MD [address] [place] [address] documented as of this encounter Visit Diagnoses Not on filedocumented in this encounter Care Teams Director Of Public Relations Relationship Specialty Start Date End Date Rhea Martinez MD [facility] [address] KARINA FULLER PCP - General 07/08/19 documented as of this encounter
--- OUTSIDE RECORDS SUMMARY | 2025-05-27 13:31 | XMS_ITS | Encounter Summary ---
Author Organization [facility], Address [address] [place] [address] Phone Care Team Providers Care Industrial Pharmacist Name Role Phone Rhea Martinez MD Primary Care Provider [phone] Encounter Details Date Type Department Care Team (Late st Contact Info) Description 07/06/2022 Documentation Only [facility], [address] [place] [address] Rico Lamb MD [address] [place] [address] [place] [address] Social History Tobacco Use Types [...] Visit [facility] [address] [place] [address] Rico Lamb MD [address] [place] [address] [place] [address] documented as of this encounter Visit Diagnoses Not on filedocumented in this encounter Care Teams Industrial Pharmacist Relationship Specialty Start Date End Date Rhea Martinez MD [facility] [place] [address] [place] PCP - General 07/08/19 documented as of this encounter
--- OUTSIDE RECORDS SUMMARY | 2025-05-27 13:32 | XMS_ITS | Patient Health Record ---
Author [facility] Address [address] [place] [address] Care Team Providers Care Bombsight Specialist Name Role Phone Rhea Martinez Primary Care Provider UnavailRachele Andersen Unavailable [phone] David Ndiaye Unavailable [phone] Vivienne Greene Unavailable [phone] Allergies Allergen (clinical drug ingredient) Drug/Non Drug [...] Lab: Notes/Report: HEMOGLOBIN A1C % (HH) 7.6 HEMOGLOBIN A1C (GLYCOHEMOGLO BIN) Reviewed date:05/22/2025 01:41:33 PM Interpretation: Performing Lab: Notes/Report: HEMOGLOBIN A1C % (HH) 7.3 Reason For Referral No Information Medications Medication SIG (Take, Route, Frequency, Duration) Notes Start Date End Date Status carBAMazepine Active Gabapentin Active Bethanechol Chloride Active Breo Ellipta Active Spiriva HandiHaler A ctive Rosuvastatin Calcium Active Insulin Active Lisinopril Active Extra Depth Diabetic Shoes with 3 Pair Custom heat-molded multi-density innersoles for 1 year Dx: 09/20/2022 Not-Taking Carvedilol 25 MG 1 tablet with food Oral Twice a day; Duration: 30 days Active Extra Depth Diabetic Shoes with 3 Pair Custom heat-molded multi-density innersoles for 1 year Dx: Active Potassium Active albuterol Active Immunizations Vaccine Route Administration Date Status Comme nts Influenza Unknown 06/30/2022 Administered Influenza Unknown 06/03/2023 Administered Influenza Unknown 06/03/2024 Administered COVID-19 Pfizer BioNTech Vaccine Unknown 07/11/2022 Administered 2020 unsure dates Social History Tobacco Use: [...] Polyneuropathy due to type 2 diabetes mellitus (753927011) Type 2 diabetes mellitus with diabetic polyneuropathy (E11.42) Active confirmed Problem Acquired hammer toe of right foot (5529625889293898 ) Other hammer toe(s) (acquired), right foot (M20.41) Active confirmed Response to treatment, Improvemen t Problem Acquired hammer toe of left foot (2521914132525051 ) Other hammer toe(s) (acquired), left foot (M20.42) Active confirmed Response to treatment, Improvemen t Vital Signs Blood pressure diastolic 80 mm Hg 05/22/2025 Height 5ft 3in in 05/22/2025 Blood pressure systolic 120 mm Hg 05/22/2025 Weight 112 lbs 05/22/2025 BMI 19.84 kg/m2 05/22/2025 Procedures Procedure Date Ordered Date Performed Result Body Sit e 38292-NDOXGRG NAIL, 6 OR MORE 08/25/2024 N/A 86571-HWLG SKIN LESIONS, OVER 4 08/25/2024 N/A Encounters Encounter Location Date Provider Diagnosis [address] [address] 06/02/2024 David Ndiaye Other viral warts B07.8 [...] right foot M20.41 and Ingrowing nail L60.[address] [address] 08/25/2024 Vivienne Greene Type 2 diabetes mellitus with diabetic polyneuropathy E11.42 ; Tinea unguium B35.1 ; Other hammer toe(s) (acquired), right foot M20.41 and Other hammer toe(s) (acquired), left foot M20.[address] [address] 11/14/2024 Rachele Perica Type 2 diabetes mellitus with diabetic polyneuropathy E11.42 and Tinea unguium B35.[address] [address] 02/13/2025 Rachele Perica Type 2 diabetes mellitus with diabetic polyneuropathy E11.42 and Tinea unguium B35.[address] [address] 05/22/2025 Rachele Perica Type 2 diabetes mellitus with diabetic polyneuropathy E11.42 and Tinea unguium B35.[address] [address] 07/03/2024 David Ndiaye Type 1 diabetes mellitus [...] with diabetic polyneuropathy (ICD-10 - E11.42) 05/22/2025 Type 2 diabetes mellitus with diabetic polyneuropathy (ICD-10 - E11.42) 05/22/2025 Tinea unguium (ICD-10 - B35.1) 02/13/2025 Tinea unguium (ICD-10 - B35.1) 08/25/2024 [...] Treatment Pending Test Test Name Order Date [id number] NAIL, 6 OR MORE 08/25/2024 69630-TDRT SKIN LESIONS, OVER 4 08/25/20 17362-KEOO SKIN LESIONS, OVER 4 09/20/19 82169-HOAS SKIN LESIONS, OVER 4 11/24/19 53690-IQKB SKIN LESIONS, 2 TO 4 02/02/20 Next Appt Details Provider Name:Rachele cannon, 09/08/2025 02:45:00 PM, [address] [place] [address], [phone], Insurance Providers Payer Name Payer Address Payer Phone Subscriber Number Group Number Insured Name Patient Relationship to Insured Coverage Start Date Coverage End Date Medicare [employer] [address] [place] [address] [id number] Simone Mir Self - patient is the insured Medical (General) History Medical History History ICD Code Arthritis Back,Hip,and Knee pain Broken bones CAD (Cholesterol) type I diabetes Gall bladder problems Heart disease High blood pressure Kidney disease Lung disease COPD Surgical History Surgery Date(Month/Year) appendectomy Gall bladder removal hernia surgery Orthopedic Surgery- hip, elbow, leg Hospitalization History Reason Date(Month/Year) [facility] breathing issues 08/16/24
--- OUTSIDE RECORDS SUMMARY | 2025-05-27 13:32 | XMS_ITS | Clinical Summary ---
Author Organization [facility] Address [address] [place] [address] Phone Care Team Providers Care Jack Tamp Operator Name Role Phone Rhea Martinez MD Unavailable [phone] Kristy Mcbride MD Unavailable [phone] Rhea Martinez MD Primary Care Provider [phone] Allergies Active Allergy Reactions Criticality Noted Date [...] length cannula, he is advised to contact [facility] to discuss his order since we don't [...] 11:22 PM EDT): We did not adjust Simoen's insulin pump settings today Will monitor effects [...] and in 6 months to meet with dc Assessment & Plan (10/13/2024 4:15 PM EST): [...] testosterone evaluated if not up to date iSmone is encouraged to continue to do his [...] and in 6 months to meet with dc Assessment & Plan (09/06/2020 10:52 PM EST): [...] times and a slight reduction in the catalyst recovery operator hours to reduce risk of hypoglycemia at [...] Office Visit [facility] [address] [place] [address] [place] [address] Kristy Mcbride MD 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); Type 1 diabetes mellitus with diabetic neuropathy; Type 1 diabetes mellitus with diabetic peripheral angiopathy without gangrene; Insulin pump in place; Primary hypertension; Hyperlipidemia, unspecified hyperlipidemia type 04/08/2025 Telephone [facility] [address] [place] [address] [place] [address] Marisa Monsalve MA CLINICAL NOTES from Last 3 Months Immunizations Immunization Administration [...] PM EST Nutrition [facility] [address] [place] [address] Kristy Mcbride MD [address] [place] [address] Laura Parham LDN [address] [place] [address] [email or web address] 10/12/2025 2:40 PM EST Office Visit [facility] [address] [place] [address] [place] [address] Kristy Mcbride MD [address] [place] [address] Health Maintenance Due Date Last Done Comments [...] LEVEL 12/26/2023 12/25/2022 POTASSIUM LEVEL 12/26/2023 12/25/2022 ABDOMINAL AORTIC ANEURYSM (AAA) SCREENING 2024 INFLUENZA VACCINE (#1) 2025 , 07/03/2023, 06/27/2022, Additional history exists COVID-19 VACCINE ( season) 2025 10/23/2023, 08/14/2022, 07/11/2021, Additional history exists SMOKING Hx and SMOKELESS TOBACCO SCREENING 10/13/2025 [...] Hemoglobin A1c 7.3(A) 4.2 - 5.6 % [facility] Other 04/13/2025 2:26 PM EDT us Kristy Mcbride MD POINT OF CARE TEST ORDERABLES F inal Result Performing Organization Address [facility]/ZIP Co de Phone Number [address] [address], [facility] * (ABNORMAL) Basic metabolic panel (12/25/2022 2:05 PM EDT) SODIUM 138 133 - 146 mmol/L [facility] CHLORIDE 102 96 - 108 mmol/L [facility] POTASSIUM 5.2(H) 3.3 - 5.1 mmol/L [facility] CO2 28 21 - 35 mmol/L [facility] BUN 29(H) 6 - 19 mg/dL [facility] CREATININE 1.50 0.5 - 1.5 mg/dL [facility] GLUCOSE 231(H) 70 - 99 mg/dL [facility] CALCIUM 9.2 8.4 - 10.3 mg/dL [facility] EGFR 52(L) >59 mL/min/1.7 3m2 [facility] Comment:Estimated glomerular filtration rate calculated using the CKD-EPI refit equation. ANION GAP 13 10 - 20 mmol/L [facility] Blood 12/25/2022 2:05 PM EDT 12/25/2022 2:08 PM EDT Rhea Martinez MD LAB BLOOD ORDERABLES Final Re sult Performing Organization Address [facility]/ZIP Co de Phone Number [address] [address] from Last 3 Months or Most Recently Relevant to Health Maintenance Insurance MEDICARE PART A & B [id number] [place], [place] [address]B MEDICARE PART A & [facility] B [address] [place], [place] [address]B MEDICARE PART A & [facility]IC[facility] & B [facility] & [facility] A & B [facility] MEDIC[facility] A & [facility] Care Teams Jack Tamp Operator Relationship Specialty Start Date End Date Rhea Martinez MD [address] [place] [address] PCP - General Internal Medicine 07/04/17 Rhea Martinez MD [address] [place] [address] Historical LMR Provider 06/18/17 Kristy Mcbride MD [address] [place] [address], [address] [place] [address] [email or web address] Historical LMR Provider 06/18/17 Additional Source Comments The information contained in this document represents components of the legal health record. It is not the complete legal health record.[facility]
--- OUTSIDE RECORDS SUMMARY | 2025-05-27 13:32 | XMS_ITS | Clinical Summary ---
Author Organization [employer] Address [address] [facility] 7t [place] [address] Care Team Providers Care Hris Specialist Name Role Phone Unavailable Primary Care Provider [...] - Risk 60-74 years 1-dose series) 2019 Dental X-Ray: Bitewings 12/21/2024 12/21/2023 Tobacco Screening 01/08/2025 01/09/2024 COVID-19 Vaccine ( - season) 2025 10/23/2023, 08/14/2022, 07/11/2021, Additional history exists Influenza Vaccine (#1) 2025 , 06/27/2022, 06/20/2021, [...] Payer (Ef fective 2022-Present) Name:Simone Quintana Member ID:[id number] Relation to Subscriber:Self Name:Simone Quintana Subscriber ID:[id number] Payer ID:STATE Group ID:Not on file Type:Medicare Address: [facility] [address] [address] [place]
--- OUTSIDE RECORDS SUMMARY | 2025-05-27 13:32 | XMS_ITS | Patient Health Record ---
Author Organization [facility] Address [address] [place] [address] Care Team Providers Care Trust Operations Assistant Name Role Phone Rhea Martinez MD Primary Care Provider Dylan Ayala Unavailable [phone] Reason For Referral No Information Medications Medication [...] Problem Status W/U Status Risk Notes Problem [id number] Encounter for screening for malignant neoplasm of colon (Z12.11) Active confirmed Problem [id number] Constipation, unspecified constipation type (K59.00) Active confirmed Plan Of Treatment Future Test Test Name Order Date COLONOSCOPY 06/04/2020 Insurance Providers Payer Name Payer Address Payer Phone Subscriber Number Group Number Insured Name Patient Relationship to Insured Coverage Start Date Coverage End Date MEDICARE OF KARINA ERIKA ANA MARIA [address] [id number] GAVIOTA MCKINNEY Self - patient is the insured MEDICAID OF [employer] [address] [place] [id number] GAVIOTA MCKINNEY Self - patient is the insured Medical (General) History Medical History History ICD Code Hyperlipidemia Hypertension IDDM--has an Insulin pump COPD Denies MS nor CVA Sees a laboratory tech for proteinuria Constipation Neg. screening colonoscopy in 01/2010 Decreased vision right eye Surgical History Surgery Date(Month/Year) cholecystectomy appendectomy orthopedic surgeries umbilical hernia repair Retina laser surgery both eyes
--- OUTSIDE RECORDS SUMMARY | 2025-05-27 13:32 | XMS_ITS | Clinical Summary ---
Author Organization [facility], Address [address] [place] [address] [place] [address] Phone Care Team Providers Care Warehouse Man Name Role Phone Rhea Martinez MD Primary Care Provider [phone] Allergies Active Allergy Reactions Criticality Noted Date [...] Take with meals. 360 tablet 3 4 Active Active Problems Problem Noted Date Diagnosed [...] percentage of blood sugars in target range Immunizations Immunization Administration Dates Next Due Influenza [...] Office Visit [facility] [address] [place] [address] Rico Lamb MD [address] [place] [address] [place] [id number] Health Maintenance Due Date Last Done Comments [...] 07/05/2023, 07/04/2022, Additional history exists Influenza Vaccine (#1) 2025 2, 06/20/2021, 06/09/2019, Additional history exists Hepatitis B [...] PM EDT) Hemoglobin A1C 7.4(H) (4.0-5.6) % [facility] Comment: MONITORING: In known diabetic patients, hemoglobin A1c targets should be discussed with health care provider. DIAGNOSTIC USE: The [place] Diabetes Association (ADA) and the World Health [...] Supplement 1 Testing performed or reported by [facility], a Service of [facility], [address] [place] [address] Curtis Marks MD, Medical Translator [facility]# [id number] Blood specimen (specimen) Venous blood / Unknown 07/05/2023 12:15 PM EDT 07/05/2023 12:26 PM EDT us Rico Lamb MD LAB BLOOD ORDERABLES Final Res ult [facility] from Last 3 Months or Most Recently Relevant to Health Maintenance Insurance Medicare Medicaid [place] Care Teams Warehouse Man Relationship Specialty Start Date End Date Rhea Martinez MD [facility] [address] [place], [place] PCP - General 07/08/19
--- OUTSIDE RECORDS SUMMARY | 2025-05-27 13:32 | XMS_ITS | Encounter Summary ---
Author Organization [facility] [place], Address [address] [place] [address] Phone Care Team Providers Care Ore Roaster Name Role Phone Rhea Martinez MD Primary Care Provider [phone] Encounter Details Date Type Department Care Team (Late st Contact Info) Description 10/27/2021 Documentation Only [facility] [place], [address] [place] [address] Rico Lamb MD [address] [place] [address] [place] [address] Social History Tobacco Use Types [...] Visit [facility] [address] [place] [address] Rico Lamb MD [address] [place] [address] [place] [address] documented as of this encounter Visit Diagnoses Not on filedocumented in this encounter Care Teams Ore Roaster Relationship Specialty Start Date End Date Rhea Martinez MD [facility] [place] [address] [place] MD PCP - General 07/08/19 documented as of this encounter
== END 2025-05-27 11:38 | disposition home or self-care (01) ==
LOC: HO.RHES 10:46
PROVIDERS: PCP Internal Medicine; Visit Provider Internal Medicine Rheumatology
DX: M25.551 Pain in right hip (principal)
CPT/HCPCS: 99204

== ENCOUNTER → 2025-05-27 10:45 | Outpatient (BNVA) | payer MEDICARE, SELFPAY | PROVIDERS: PCP Internal Medicine; Visit Provider Internal Medicine Rheumatology | DX: M16.11 Unilateral primary osteoarthritis, right hip (principal); M54.9 Dorsalgia, unspecified; M25.551 Pain in right hip; G89.29 Other chronic pain | CPT/HCPCS: 99202 ==

== ENCOUNTER → 2025-06-19 17:45 | Outpatient (BNV) | payer MEDICARE, MEDICAID, SELFPAY | PROVIDERS: PCP Internal Medicine; Visit Provider Radiology Diagnostic Ultrasound | DX: M16.0 Bilateral primary osteoarthritis of hip (principal); M48.061 Spinal stenosis, lumbar region without neurogenic claudication; R60.0 Localized edema | CPT/HCPCS: 72195 ==

== ENCOUNTER 2025-06-19 17:46 | Outpatient (REF) | payer MEDICARE, MEDICAID, SELFPAY ==
--- NOTE | ~2025-06-19 | MR_ITS ---
EXAMINATION: MR PELVIS WITH CONTRAST CLINICAL INFORMATION: Question gluteal musculature tendon tear, contributing to chronic right buttock pain. COMPARISON: X-ray 09/26/2024 TECHNIQUE: Pelvic MRI in a 1.5 Melyssa scanner. Multiplanar multisequence imaging. FINDINGS: BONE/JOINTS: Redemonstrated old healed fracture deformity of the right proximal femoral diaphysis. Mild bilateral hip arthritis, with mild joint space loss. No evidence of acute fracture, avascular necrosis or stress reaction in the visualized proximal femurs. On the sagittal T2 fat-sat sequence, there is severe edema diffusely in the L4 on L5 vertebral bodies. Grade 1 anterolisthesis of L4 on L5. Severe L4-L5 disc space narrowing. Possible posterior disc bulge. This is incompletely imaged/evaluated on the provided sequences. Bilateral SI joints are intact. No findings to suggest sacral fracture. LABRUM: Limited evaluation the labrum in this large appjd-ip-wctz study. There is a T2 signal extending into the base of the right anterosuperior labrum, as seen on the sagittal sequences. This raises concern for a labral tear. No gross labral tear is identified.. MUSCLES/TENDONS: Minimal right distal gluteus is peritendinitis. Mild right common hamstring tendinosis. Mild left common hamstring tendinosis/partial tearing. The remainder of the visualized tendons appear intact. No measurable muscle tear. JOINT FLUID/BURSA: No significant hip joint effusion. No significant greater trochanteric or iliopsoas bursitis. INTRAPELVIS STRUCTURES: Prostate measures 3.3 cm, with nonspecific heterogeneous T2 signal. Urinary bladder is partially distended. No free fluid is seen in the pelvis.. MR/MR pelvis wo con IMPRESSION: 1. Abnormal findings of severe L4-5 vertebral body edema, severe L4-5 disc space narrowing, with possible posterior disc bulge, suboptimally/incompletely evaluated on the provided sequences. Recommend dedicated lumbar spine MRI for further evaluation. 2. Old healed fracture deformity of the proximal femoral diaphysis. No evidence of acute femoral fracture, avascular necrosis or stress reaction. 3. Mild bilateral hip joint arthritis. 4. Limited evaluation the labrum. Question right anterosuperior labral tear. Dedicated hip MRI for further evaluation as clinically indicated. 5. Minimal right distal gluteus medius minimus peritendinitis. Mild right common hamstring tendinosis. Mild left common hamstring tendinosis/partial tear. 6. Prostate measures 3.3 cm, with the heterogeneous T2 signal. Clinically correlate. Further evaluation as clinically indicated. Electronically signed by: Bridger Rosario MD 06/22/2025 09:54 AM EDT RP
--- OUTSIDE RECORDS SUMMARY | 2025-06-19 18:39 | XMS_ITS | Clinical Summary ---
Author Organization [facility] Address [address] [place] [address] Phone Care Team Providers Care Rotational Moulding Operator Name Role Phone Rhea Martinez MD Unavailable [phone] Kristy Mcbride MD Unavailable [phone] Rhea Martinez MD Primary Care Provider [phone] Allergies Active Allergy Reactions Criticality Noted Date [...] length cannula, he is advised to contact [facility] [place] [facility] to discuss his order since [...] and in 6 months to meet with il Assessment & Plan (10/13/2024 4:15 PM EST): [...] and in 6 months to meet with il Assessment & Plan (09/06/2020 10:52 PM EST): [...] times and a slight reduction in the mica plate layer hours to reduce risk of hypoglycemia at [...] Description 04/13/2025 2:00 PM EDT Office Visit [facility] [address] [place] [address] [place] [address] Kristy Mcbride MD 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); Type 1 diabetes mellitus with diabetic neuropathy; Type 1 diabetes mellitus with diabetic peripheral angiopathy without gangrene; Insulin pump in place; Primary hypertension; Hyperlipidemia, unspecified hyperlipidemia type 04/08/2025 Telephone [facility] [address] [place] [address] [place] [address] Marisa Monsalve MA [...] Info) Description 07/20/2025 1:00 PM EST Nutrition [facility] [address] [place] [address] Kristy Mcbride MD [address] [place] [address] Laura Parham LDN [address] [place] [address] [email or web address] 10/12/2025 2:40 PM EST Office Visit [facility] [address] [place] [address] [place] [address] Kristy Mcbride MD [address] [place] [address] Health Maintenance Due Date Last Done Comments CARBAMAZEPINE (TEGRETOL) LEVEL 1959 DEPRESSION SCREENING 1971 HEPATITIS C SCREENING 1977 HIV ONE-TIME SCREENING (18-65 YEARS) 1977 COLOGUARD 2004 COLONOSCOPY 2004 COLORECTAL CANCER SCREENING 2004 FIT TEST 2004 FOBT 2004 SIGMOIDOSCOPY 2004 VIRTUAL COLONOSCOPY 2004 RSV VACCINE (1 - Risk 50-74 years 1-dose series) 2009 DIABETIC EYE EXAM 07/04/2017 CREATININE LEVEL 12/26/2023 12/25/2022 POTASSIUM LEVEL 12/26/2023 [...] Hemoglobin A1c 7.3(A) 4.2 - 5.6 % [facility] Other 04/13/2025 2:26 PM EDT us Kristy Mcbride MD POINT OF CARE TEST ORDERABLES F inal Result Performing Organization Address [facility]/ZIP Co de Phone Number [address] [address], [facility] * (ABNORMAL) Basic metabolic panel (12/25/2022 2:05 PM EDT) SODIUM 138 133 - 146 mmol/L [facility] CHLORIDE 102 96 - 108 mmol/L [facility] POTASSIUM 5.2(H) 3.3 - 5.1 mmol/L [facility] CO2 28 21 - 35 mmol/L [facility] BUN 29(H) 6 - 19 mg/dL [facility] CREATININE 1.50 0.5 - 1.5 mg/dL [facility] GLUCOSE 231(H) 70 - 99 mg/dL [facility] CALCIUM 9.2 8.4 - 10.3 mg/dL [facility] EGFR 52(L) >59 mL/min/1.7 3m2 [facility] Comment:Estimated glomerular filtration rate calculated using the CKD-EPI refit equation. ANION GAP 13 10 - 20 mmol/L [facility] Blood 12/25/2022 2:05 PM EDT 12/25/2022 2:08 PM EDT Rhea Martinez MD LAB BLOOD ORDERABLES Final Re sult Performing Organization Address [facility]/ZIP Co de Phone Number [address] [address] from Last 3 Months or Most Recently Relevant to Health Maintenance Insurance MEDICARE PART A & B [id number] [place], [place] [address]B [facility]ICARE PART A [facility] B [address] [place], [place] [address]B MEDICARE PART A & [facility] A & B [id number] & [id number] PART A & B [facility] MEDICARE PART A & [facility] Care Teams Rotational Moulding Operator Relationship Specialty Start Date End Date Rhea Martinez MD [address] [place] [address] PCP - General Internal Medicine 07/04/17 Rhea Martinez MD [address] [place] [address] Historical LMR Provider 06/18/17 Kristy Mcbride MD [address] [place] [address], [address] [place] [address] [email or web address] Historical LMR Provider 06/18/17 Additional Source Comments The information contained in this document represents components of the legal health record. It is not the complete legal health record.[facility]
--- OUTSIDE RECORDS SUMMARY | 2025-06-19 18:39 | XMS_ITS | Patient Health Record ---
Author Organization [facility] Address [address] [place] [address] Care Team Providers Care Payment Rep Name Role Phone Rhea Martinez MD Primary Care Provider Dylan Ayala Unavailable [phone] Reason For Referral No Information Medications Medication [...] Problem Status W/U Status Risk Notes Problem Screening for malignant neoplasm of colon (608029051) Encounter for screening for malignant neoplasm of colon (Z12.11) Active confirmed Problem Constipation (17557033) Constipation, unspecified constipation type (K59.00) Active confirmed Plan Of Treatment Future Test Test Name Order Date COLONOSCOPY 06/04/2020 Insurance Providers Payer Name Payer Address Payer Phone Subscriber Number Group Number Insured Name Patient Relationship to Insured Coverage Start Date Coverage End Date MEDICARE OF KARINA ERIKA RODGERS [address] [id number] [phone] [id number] GAVIOTA MCKINNEY Self - patient is the insured MEDICAID OF [facility] [address] [place] [address] [id number] GAVIOTA MCKINNEY Self - patient is the insured Medical (General) History Medical History History ICD Code Hyperlipidemia Hypertension IDDM--has an Insulin pump COPD Denies ID nor CVA Sees a area mechanic for proteinuria Constipation Neg. screening colonoscopy in 01/2010 Decreased vision right eye Surgical History Surgery Date(Month/Year) cholecystectomy appendectomy orthopedic surgeries umbilical hernia repair Retina laser surgery both eyes
--- OUTSIDE RECORDS SUMMARY | 2025-06-19 18:39 | XMS_ITS | Clinical Summary ---
Author Organization [employer] Address [address] [facility] 7t [place] [address] Care Team Providers Care Application Design Engineer Name Role Phone Unavailable Primary Care [...] Payer (Ef fective 2022-Present) Name:Simone Quintana Member ID:[id number] Relation to Subscriber:Self Name:Simone Quinatna Subscriber ID:[id number] Payer ID:STATE Group ID:Not on file Type:Medicare Address: [facility] [address] [address] [place]
--- OUTSIDE RECORDS SUMMARY | 2025-06-19 18:39 | XMS_ITS | Patient Health Record ---
Author Organization [facility] Address [address] [place] [address] Care Team Providers Care Warehouse Loader Name Role Phone Rhea Martinez Primary Care Provider Rachele Vaca Unavailable [phone] David Gordon Unavailable [phone] Vivienne Greene Unavailable [phone] Allergies Allergen (clinical drug ingredient) Drug/Non Drug [...] Polyneuropathy due to type 2 diabetes mellitus (254012670) Type 2 diabetes mellitus with diabetic polyneuropathy (E11.42) Active confirmed Problem Acquired hammer toe of right foot (4948962704506160 ) Other hammer toe(s) (acquired), right foot (M20.41) Active confirmed Response to treatment, Improvemen t Problem Acquired hammer toe of left foot (0666293208099693 ) Other hammer toe(s) (acquired), left foot (M20.42) Active confirmed Response to treatment, Improvemen t Vital Signs Blood pressure diastolic 80 mm Hg 05/22/2025 Height 5ft 3in in 05/22/2025 Blood pressure systolic 120 mm Hg 05/22/2025 Weight 112 lbs 05/22/2025 BMI 19.84 kg/m2 05/22/2025 Procedures Procedure Date Ordered Date Performed Result Body Sit e 69709-ADKCHHO NAIL, 6 OR MORE 08/25/2024 N/A 34396-SQCM SKIN LESIONS, OVER 4 08/25/2024 N/A Encounters Encounter Location Date Provider Diagnosis [address] [address] 08/25/2024 Vivienne Greene Type 2 diabetes mellitus with diabetic polyneuropathy E11.42 ; Tinea unguium B35.1 ; Other hammer toe(s) (acquired), right foot M20.41 and Other hammer toe(s) (acquired), left foot M20.[address] [address] 11/14/2024 Rachele Uribe Type 2 diabetes mellitus with diabetic polyneuropathy E11.42 and Tinea unguium B35.[address] [address] 02/13/2025 Rachele Solanoa Type 2 diabetes mellitus with diabetic polyneuropathy E11.42 and Tinea unguium B35.[address] [address] 05/22/2025 Rachele Solanoa Type 2 diabetes mellitus with diabetic polyneuropathy E11.42 and Tinea unguium B35.[address] [address] 07/03/2024 David Gordon Type 1 diabetes mellitus with diabetic polyneuropathy [...] Treatment Pending Test Test Name Order Date 86765-DNHUBPR NAIL, 6 OR MORE 08/25/2024 87009-HCTE SKIN LESIONS, OVER 4 08/25/20 12051-BLYK SKIN LESIONS, OVER 4 09/20/19 57292-ZNWY SKIN LESIONS, OVER 4 11/24/19 69910-CTFV SKIN LESIONS, 2 TO 4 02/02/20 Next Appt Details Provider Name:Rachele cannon, 09/08/2025 02:45:00 PM, [address] [place] [address], [phone], Insurance Providers Payer Name Payer Address Payer Phone Subscriber Number Group Number Insured Name Patient Relationship to Insured Coverage Start Date Coverage End Date Medicare National [employer] [address] [place] [address] [phone] [id number] Simone Mir Self - patient is the insured Medical (General) History Medical History History ICD Code Arthritis Back,Hip,and Knee pain Broken bones CAD (Cholesterol) type I diabetes Gall bladder problems Heart disease High blood pressure Kidney disease Lung disease COPD Surgical History Surgery Date(Month/Year) appendectomy Gall bladder removal hernia surgery Orthopedic Surgery- hip, elbow, leg Hospitalization History Reason Date(Month/Year[place] [facility] [place] issues [place]16[place]24
== END 2025-06-19 17:47 | disposition home or self-care (01) ==
LOC: HO.MRI 17:46
PROVIDERS: PCP Internal Medicine; Visit Provider Internal Medicine Rheumatology
DX: M54.9 Dorsalgia, unspecified (principal); G89.29 Other chronic pain
CPT/HCPCS: 72195

== ENCOUNTER 2025-06-22 09:52 | Outpatient (AMB) | payer MEDICARE, MEDICAID, SELFPAY ==
--- NOTE | 2025-06-22 09:54 | A.OFFVIS_ITS ---
Vital Signs 06/22/25 09:55 Height 5 ft 2 in Weight 108 lb BMI 19.8 BP 106/60 Blood Pressure Location Lt brachial Position Sitting Respiration 16 Pulse 77 Pulse Source Pulse Oximeter Pulse Oximetry (%) 96 Oxygen Delivery Method Room Air Intake Visit Reasons: S/P Right bursa PRP 04/23/25 Optical Technician Required: No Allergies adalimumab (From Humira) Adverse Reaction (Verified 06/22/25 09:56) sleepy pregabalin (From Lyrica) Adverse Reaction (Verified 06/22/25 09:56) Dizzyness Medication List - Last Reconciled 06/22/25 by Adelina Loera LPN albuterol sulfate 90 mcg/actuation (Ventolin HFA) 2 puffs PO Q4-6H PRN aspirin (Adult Aspirin Regimen) 81 mg PO DAILY PRN bethanechol chloride 50 mg PO BID 90 days Breo Ellipta 100-25 mcg/dose (fluticasone furoate-vilanterol) 1 ea PO DAILY NS carbamazepine ER 200 mg PO BEDTIME carvedilol 25 mg PO BID finasteride 5 mg PO DAILY 90 days gabapentin 200 mg (2 x 100 mg) PO DAILY PRN glucagon 3 mg/actuation (Baqsimi) mg intranasal hydrocodone-acetaminophen 5-325 mg 1 tab PO BID PRN 30 days insulin aspart U-100 70 units subcut DAILY ipratropium-albuterol 0.5 mg-3 mg(2.5 mg base)/3 mL 3 mL inhalation Q4H PRN 30 days lactulose 20 grams (30 mL) PO DAILY PRN lisinopril 40 mg PO DAILY mirabegron ER (Myrbetriq) 25 mg PO DAILY 90 days potassium citrate ER 10 mEq PO TID rosuvastatin 40 mg PO DAILY sennosides-docusate sodium 8.6-50 mg (Senna Plus) 2 tab-caps (2 x 8.6-50 mg) PO BEDTIME sildenafil (Viagra) 100 mg PO DAILY PRN simethicone (Gas Relief (simethicone)) 125 mg PO BEDTIME Spiriva with HandiHaler (tiotropium bromide) 1 cap inhalation DAILY NS tamsulosin 0.4 mg PO DAILY 90 days HPI HPI S/P Right bursa PRP 04/23/25: Details: History of Present Illness The patient is a 64-year-old male presenting with right gluteus medius tendinitis and associated pain. The pain has persisted for over a year, initially thought to be due to a fractured hip and arthritis. The pain is localized to the right gluteal region, occasionally radiating to the foot, and worsens with prolonged walking. An MRI was conducted, but it was a pelvis MRI, limiting the assessment of the hip. The patient has been under the care of Dr. Lin and Dr. Steel for further evaluation. A previous PRP injection did not yield significant improvement, and the patient has been engaging in home physical therapy exercises. Pain Description - Onset: Pain has been present for over a year. - Location: Right gluteal region, occasionally radiating to the foot. - Quality: Persistent pain with occasional numbness. - Exacerbating factors: Prolonged walking. - Relieving factors: None significantly noted. Physical Exam - Musculoskeletal: Pain localized to the right gluteal region, no groin pain reported. Results - Imaging: Pelvis MRI performed, limiting assessment of hip pathology. Pain Management - Affect: Pain has been persistent, impacting daily activities. - Analgesia: Previous PRP injection did not provide relief. - Activities of Daily Living: Pain exacerbated by prolonged walking, affecting mobility. - Aberrant Drug Related Behaviors: None reported. [facility] Medical History Urinary frequency COPD exacerbation Bloating Hypoglycemia Chronic constipation Tinea pedis, left Hx of fracture of femur Eczema Cholelithiasis Carpal tunnel syndrome Ankle fracture Diabetes mellitus type 1 Chronic kidney disease (CKD) stage G2/A3, mildly decreased glomerular filtration rate (GFR) between 60-89 mL/min/1.73 square meter and albuminuria creatinine ratio greater than 300 mg/g Hypercholesterolemia Diabetic neuropathy COPD (chronic obstructive pulmonary disease) Coronary artery disease Hypertension Surgical History Hx of colonoscopy Hx of eye surgery Hx of appendectomy H/O umbilical hernia repair History of cholecystectomy History of elbow surgery History of carpal tunnel release Family History Father Hypertension Stroke CVD (cerebrovascular disease) Mother Hypertension CVD (cerebrovascular disease) Diabetes Sister HX: breast cancer Paternal Grandfather Colon cancer Social History Housing: House Alcohol intake: former Patient Tobacco Use Status: Former Tobacco user Tobacco use type: Cigarette Years Smoked: 2002 quit 08/12 e-Cigarette/Vaping Use: Never Used Second Hand Smoke Exposure: No Substance Use Type: Marijuana service: No Current occupational status: disabled Cognitive needs: No Hearing needs: No Vision needs: Yes Physical Exam Vital Signs: Last Vital Signs Pulse 77 06/22/25 09:55 Resp 16 06/22/25 09:55 BP 106/60 06/22/25 09:55 Pulse Ox 96 06/22/25 09:55 Oxygen Delivery Method Room Air 06/22/25 09:55 BMI result Body Mass Index 19.8 Assessment & Plan Assessment & Plan (1) Tendinopathy of right gluteus medius: Code(s): M67.951 - Unspecified disorder of synovium and tendon, right thigh Category: Medical (2) Hip pain, right: Comment: Chronic, progressively worsening with limiting function. I am concerned that he has muscular strain or tendon tear from gluteal muscles at the attachment of the greater trochanter contributing to his pain. He recently started physical therapy. We discussed importance of rehabilitation in trying to regain function. We discussed next steps in obtaining an MRI to evaluate for soft tissue pathology, which will aid future management of patient including interventions such as repair by orthopedic surgery of muscle or tendon if significant tear is noted on imaging. Code(s): M25.551 - Pain in right hip Category: Medical Plan Plan Patient was informed and verbally consented to the use of an ambient scribe for clinic note documentation during this visit. 1. Right Gluteus Medius Tendinitis - Plan to repeat PRP injection in a month. - Continue physical therapy before and after the injection. - Consider shockwave therapy if affordable, as it is not covered by insurance. - Maintain general health by eating healthy and reducing sugar intake to improve PRP effectiveness. 2. Possible Hip Pathology - Further evaluation could be considered due to limitations of pelvis MRI. 3. Neuropathy - Monitor symptoms and consider further evaluation if symptoms persist or worsen. Discussion Notes I discussed with the patient the plan to repeat the PRP injection in a month and the importance of continuing physical therapy to address the mechanical issues contributing to the tendinitis. I also recommended considering shockwave therapy if financially feasible, as it is not covered by insurance. We talked about maintaining a healthy diet and reducing sugar intake to enhance the effectiveness of the PRP treatment. Patient Instructions - Schedule a PRP injection in one month. - Continue physical therapy exercises at home. - Consider shockwave therapy if affordable. - Maintain a healthy diet and reduce sugar intake. Orders: Referrals Chiropractic Referral M25.551 - Pain in right hip, M67.951 - Unspecified di sorder of synovium and tendon, right thigh Coding Level of Care Code Est Pt Level 3 (99389) Diagnoses Tendinopathy of right gluteus medius M67.951 Hip pain, right M25.551
[2025-06-22 09:55] VITALS: BP 106/60; PULSE 77; RESP 16; O2SAT 96; BMI 19.8
== END 2025-06-22 10:28 | disposition home or self-care (01) ==
PROVIDERS: PCP Internal Medicine; Visit Provider Internal Medicine
DX: M67.951 Unspecified disorder of synovium and tendon, right thigh (principal); M25.551 Pain in right hip
CPT/HCPCS: 99213

== ENCOUNTER → 2025-06-22 09:52 | Outpatient (BNVA) | payer MEDICARE, OTHER, SELFPAY | PROVIDERS: PCP Internal Medicine; Visit Provider Internal Medicine | DX: M67.951 Unspecified disorder of synovium and tendon, right thigh (principal); M25.551 Pain in right hip | CPT/HCPCS: 99212 ==

== ENCOUNTER 2025-07-03 07:46 | Outpatient (REF) | payer MEDICARE, MEDICAID, SELFPAY ==
--- OUTSIDE RECORDS SUMMARY | 2025-07-03 07:49 | XMS_ITS | Patient Health Record ---
[facility] Organization [facility] Address [address] [place] [address] Care Team Providers Care Bridge Rigger Name Role Phone Rhea Martinez Primary Care Provider Rachele Vaca Unavailable [phone] David Gordon Unavailable [phone] Vivienne Greene Unavailable [phone] Allergies Allergen (clinical drug ingredient) Drug/Non Drug [...] Polyneuropathy due to type 2 diabetes mellitus (640194313) Type 2 diabetes mellitus with diabetic polyneuropathy (E11.42) Active confirmed Problem Acquired hammer toe of right foot (8365895400160851 ) Other hammer toe(s) (acquired), right foot (M20.41) Active confirmed Response to treatment, Improvemen t Problem Acquired hammer toe of left foot (4427309776669535 ) Other hammer toe(s) (acquired), left foot (M20.42) Active confirmed Response to treatment, Improvemen t Vital Signs Blood pressure diastolic 80 mm Hg 05/22/2025 Height 5ft 3in in 05/22/2025 Blood pressure systolic 120 mm Hg 05/22/2025 Weight 112 lbs 05/22/2025 BMI 19.84 kg/m2 05/22/2025 Procedures Procedure Date Ordered Date Performed Result Body Sit e 75929-LOXJQAS NAIL, 6 OR MORE 08/25/2024 N/A 54605-YJKK SKIN LESIONS, OVER 4 08/25/2024 N/A Encounters Encounter Location Date Provider Diagnosis [address] [address] 08/25/2024 Vivienne Greene Type 2 diabetes mellitus with diabetic polyneuropathy E11.42 ; Tinea unguium B35.1 ; Other hammer toe(s) (acquired), right foot M20.41 and Other hammer toe(s) (acquired), left foot M20.[address] [address] 11/14/2024 Rachele Uribe Type 2 diabetes mellitus with diabetic polyneuropathy E11.42 and Tinea unguium B35.[address] [address] 02/13/2025 Rachele Solanoa Type 2 diabetes mellitus with diabetic polyneuropathy E11.42 and Tinea unguium B35.[address] [address] 05/22/2025 Rachele Solanoa Type 2 diabetes mellitus with diabetic polyneuropathy E11.42 and Tinea unguium B35.[address] [address] 07/03/2024 David Gordon Type 1 diabetes mellitus [...] Treatment Pending Test Test Name Order Date 82810-DRUGJDU NAIL, 6 OR MORE 08/25/2024 14674-GUHD SKIN LESIONS, OVER 4 08/25/20 98180-OTBR SKIN LESIONS, OVER 4 09/20/19 72656-OZBK SKIN LESIONS, OVER 4 11/24/19 71030-IMQI SKIN LESIONS, 2 TO 4 02/02/20 Next Appt Details Provider Name:Rachele cannon, 09/08/2025 02:45:00 PM, [address] [place] [address], [phone], Insurance Providers Payer Name Payer Address Payer Phone Subscriber Number Group Number Insured Name Patient Relationship to Insured Coverage Start Date Coverage End Date Medicare National [employer] [address] [place] [address] [id number] Simone Mir Self - patient is the insured Medical (General) History Medical History History ICD Code Arthritis Back,Hip,and Knee pain Broken bones CAD (Cholesterol) type I diabetes Gall bladder problems Heart disease High blood pressure Kidney disease Lung disease COPD Surgical History Surgery Date(Month/Year) appendectomy Gall bladder removal hernia surgery Orthopedic Surgery- hip, elbow, leg Hospitalization History Reason Date(Month/Year[place] [facility] breathing issues 08/16/24
--- OUTSIDE RECORDS SUMMARY | 2025-07-03 07:49 | XMS_ITS | Clinical Summary ---
Author Organization [employer] Address [address] [facility] 7t [place] [address] Care Team Providers Care Tooling Engineer Name Role Phone Unavailable Primary Care [...] Payer (Ef fective 2022-Present) Name:Simone Quintana Member ID:[id number] Relation to Subscriber:Self Name:Simone Quintana Subscriber ID:[id number] Payer ID:STATE Group ID:Not on file Type:Medicare Address: [facility] [address] [address] [place] ST[place] ADULT
--- OUTSIDE RECORDS SUMMARY | 2025-07-03 07:49 | XMS_ITS | Clinical Summary ---
Author Organization [facility], Address [address] [place] [address] [place] [address] Phone Care Team Providers Care Emergency Medicine Physician Assistant Name Role Phone Rhea Martinez MD Primary Care Provider [phone] Allergies Active Allergy Reactions Criticality Noted Date [...] Office Visit [facility] [address] [place] [address] Rico Lamb MD [address] [place] [address] [place] [phone] Health Maintenance Due Date Last Done Comments [...] PM EDT) Hemoglobin A1C 7.4(H) (4.0-5.6) % [facility] Comment: MONITORING: In known diabetic patients, hemoglobin A1c targets should be discussed with health care provider. DIAGNOSTIC USE: The [place] Diabetes Association (ADA) and the World Health [...] Supplement 1 Testing performed or reported by [facility], a Service of [facility], [address] [place] [address] Curtis Marks MD, Excavator Backhoe Operator [facility]# [id number] Blood specimen (specimen) Venous blood / Unknown 07/05/2023 12:15 PM EDT 07/05/2023 12:26 PM EDT us Rico Lamb MD LAB BLOOD ORDERABLES Final Res ult [facility] from Last 3 Months or Most Recently Relevant to Health Maintenance Insurance Medicare Medicaid [place] Care Teams Emergency Medicine Physician Assistant Relationship Specialty Start Date End Date Rhea Martinez MD [facility] [address] [place], [place] PCP - General 07/08/19
--- OUTSIDE RECORDS SUMMARY | 2025-07-03 07:49 | XMS_ITS | Encounter Summary ---
Author Organization [facility], Address [address] [place] [address] Phone Care Team Providers Care Nuclear Criticality Safety Engineer Name Role Phone Rhea Martinez MD Primary Care Provider [phone] Encounter Details Date Type Department Care Team (Late st Contact Info) Description 10/27/2021 Documentation Only [facility], [address] [place] [address] Rico Lamb MD [address] [place] [address] [place] [address] Social History Tobacco Use Types [...] [facility] [address] [place] [address] Rico Lamb MD [address] [place] [address] [place] [address] documented as of this encounter Visit Diagnoses Not on filedocumented in this encounter Care Teams Nuclear Criticality Safety Engineer Relationship Specialty Start Date End Date Rhea Martinez MD [facility] [place] [address] [place] PCP - General 07/08/19 documented as of this encounter
--- OUTSIDE RECORDS SUMMARY | 2025-07-03 07:49 | XMS_ITS | Clinical Summary ---
Author Organization [facility] Address [address] [place] [address] Phone Care Team Providers Care Cloth Shader Name Role Phone Rhea Martinez MD Unavailable [phone] Kristy Mcbride MD Unavailable [phone] Rhea Martinez MD Primary Care Provider [phone] Allergies Active Allergy Reactions Criticality Noted Date [...] and in 6 months to meet with co Assessment & Plan (10/13/2024 4:15 PM EST): [...] and in 6 months to meet with co Assessment & Plan (09/06/2020 10:52 PM EST): [...] times and a slight reduction in the premium note interest calculator clerk hours to reduce risk of hypoglycemia at [...] Description 04/13/2025 2:00 PM EDT Office Visit [facility] [address] [place] [address] [place] [address] Kristy Mcbride MD 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); Type 1 diabetes mellitus with diabetic neuropathy; Type 1 diabetes mellitus with diabetic peripheral angiopathy without gangrene; Insulin pump in place; Primary hypertension; Hyperlipidemia, unspecified hyperlipidemia type 04/08/2025 Telephone [employer] [facility] [address] [place] [address] [place] [address] Marisa Monsalve MA [...] Info) Description 07/20/2025 1:00 PM EST Nutrition [facility] [address] [place] [address] Kristy Mcbride MD [address] [place] [address] Laura Parham LDN [address] [place] [address] 10/12/2025 2:40 PM EST Office Visit [facility] [address] [place] [address] [place] [address] Kristy Mcbride MD [address] [place] [address] Health Maintenance Due Date Last Done Comments [...] Hemoglobin A1c 7.3(A) 4.2 - 5.6 % [facility] Other 04/13/2025 2:26 PM EDT us Kristy Mcbride MD POINT OF CARE TEST ORDERABLES F inal Result Performing Organization Address [facility]/ZIP Co de Phone Number [address] [address], [facility] * (ABNORMAL) Basic metabolic panel (12/25/2022 2:05 PM EDT) SODIUM 138 133 - 146 mmol/L [facility] CHLORIDE 102 96 - 108 mmol/L [facility] POTASSIUM 5.2(H) 3.3 - 5.1 mmol/L [facility] CO2 28 21 - 35 mmol/L [facility] BUN 29(H) 6 - 19 mg/dL [facility] CREATININE 1.50 0.5 - 1.5 mg/dL [facility] GLUCOSE 231(H) 70 - 99 mg/dL [facility] CALCIUM 9.2 8.4 - 10.3 mg/dL [facility] EGFR 52(L) >59 mL/min/1.7 3m2 [facility] Comment:Estimated glomerular filtration rate calculated using the CKD-EPI refit equation. ANION GAP 13 10 - 20 mmol/L [facility] Blood 12/25/2022 2:05 PM EDT 12/25/2022 2:08 PM EDT Rhea Martinez MD LAB BLOOD ORDERABLES Final Re sult Performing Organization Address [facility]/ZIP Co de Phone Number [address] [address] from Last 3 Months or Most Recently Relevant to Health Maintenance Insurance MEDICARE PART A & B [id number] [place], [place] [address]B MEDICARE PART A & [facility] & B [address] [place], [place] [address]B MEDICARE PART A & B [facility] PART A & B [facility] & [facility] Care Teams Cloth Shader Relationship Specialty Start Date End Date Rhea Martinez MD [address] [place] [address] PCP - General Internal Medicine 07/04/17 Rhea Martinez MD [address] [place] [address] Historical LMR Provider 06/18/17 Kristy Mcbride MD [address] [place] [address], [address] [place] [address] [email or web address] Historical LMR Provider 06/18/17 Additional Source Comments The information contained in this document represents components of the legal health record. It is not the complete legal health record.[facility]
--- OUTSIDE RECORDS SUMMARY | 2025-07-03 07:49 | XMS_ITS | Encounter Summary ---
Author Organization [facility], Address [address] [place] [address] Phone Care Team Providers Care Hotel Associate Name Role Phone Rhea Martinez MD Primary Care Provider [phone] Encounter Details Date Type Department Care Team (Late st Contact Info) Description 08/11/2024 Documentation Only [facility] [address] [place] [address] Margareth Garcia [address] [place] [address] Social History Tobacco Use Types [...] Visit [facility] [address] [place] [address] Rico Lamb MD [address] [facility] [place] [address] documented as of this encounter Visit Diagnoses Not on filedocumented in this encounter Care Teams Hotel Associate Relationship Specialty Start Date End Date Rhea Martinez MD [facility] [place] [address] [place] PCP - General 07/08/19 documented as of this encounter
--- OUTSIDE RECORDS SUMMARY | 2025-07-03 07:49 | XMS_ITS | Encounter Summary ---
Author Organization [facility], Address [address] [place] [address] Phone Care Team Providers Care Survey Supervisor Name Role Phone Rhea Martinez MD Primary Care Provider [phone] Encounter Details Date Type Department Care Team (Late st Contact Info) Description 07/06/2022 Documentation Only [facility], [address] [place] [address] Rico Lamb MD [address] [place] [address] [place] [address] Social History Tobacco Use Types [...] Visit [facility] [address] [place] [address] Rico Lamb MD [address] [place] [address] [place] [address] documented as of this encounter Visit Diagnoses Not on filedocumented in this encounter Care Teams Survey Supervisor Relationship Specialty Start Date End Date Rhea Martinez MD [facility] [place] [address] [place] PCP - General 07/08/19 documented as of this encounter
--- OUTSIDE RECORDS SUMMARY | 2025-07-03 07:49 | XMS_ITS | Patient Health Record ---
Author Organization [facility] Address [address] [place] [address] Care Team Providers Care Occupational Therapy Program Director Name Role Phone Rhea Martinez MD Primary Care Provider Dylan Ayala Unavailable [phone] Reason For Referral No Information Medications Medication [...] Problem Screening for malignant neoplasm of colon (239668897) Encounter for screening for malignant neoplasm of colon (Z12.11) Active confirmed Problem Constipation (40098664) Constipation, unspecified constipation type (K59.00) Active confirmed Plan Of Treatment Future Test Test Name Order Date COLONOSCOPY 06/04/2020 Insurance Providers Payer Name Payer Address Payer Phone Subscriber Number Group Number Insured Name Patient Relationship to Insured Coverage Start Date Coverage End Date MEDICARE OF KARINA ERIKA RODGERS [address] [id number] GAVIOTA MCKINNEY Self - patient is the insured MEDICAID OF [facility] [address] [place] [address] [id number] GAVIOTA MCKINNEY Self - patient is the insured Medical (General) History Medical History History ICD Code Hyperlipidemia Hypertension IDDM--has an Insulin pump COPD Denies NM nor CVA Sees a grant coordinator for proteinuria Constipation Neg. screening colonoscopy in 01/2010 Decreased vision right eye Surgical History Surgery Date(Month/Year) cholecystectomy appendectomy orthopedic surgeries umbilical hernia repair Retina laser surgery both eyes
[2025-07-03 10:20] LABS: MANUAL DIFF FLAG NO
[2025-07-03 10:42] LABS: Hematocrit 38.0 % (42.0-52.0); Hemoglobin 12.4 g/dl (14.0-18.0); Imm Gran Abs Auto 0.02 X10*3/uL (0.00-0.03); Imm Gran Pct Auto 0.3 % (0.0-0.4); Lymphocytes Absolute Auto 2.2 X10*3/uL (1.2-4.9); Mean Corpuscular HGB Conc 32.6 g/dl (31.0-36.0); Mean Corpuscular Hemoglobin 31.2 pg (27.0-33.0); Mean Corpuscular Volume 95.5 fL (80.0-98.0); NRBC Abs Auto 0.000 X10*3/uL (0.0-0.012); NRBC Pct Auto 0.0 /100WBC (0.0-0.2); Platelet Count 189 X10*3/uL (160-400); Red Blood Count 3.98 X10*6/uL (4.60-5.80); White Blood Count 6.3 X10*3/uL (4.8-10.8)
[2025-07-03 11:21] LABS: Alanine Aminotransferase 25 U/L (0-40); Albumin Level 3.8 g/dL (3.5-5.0); Alkaline Phosphatase 71 U/L (39-117); Anion Gap 10 (12-20); Aspartate Amino Transferase 25 U/L (5-37); Blood Urea Nitrogen 23 mg/dL (9-16); Calcium 8.5 mg/dL (8.4-10.2); Carbon Dioxide 28 mmol/L (22-29); Chloride 105 mmol/L (96-108); Cholesterol 150 mg/dL (<200); Estimated Glomerular Filt Rate 59; Free T4 (Free Thyroxine) 1.23 ng/dL (0.71-1.85); HDL Cholesterol 76 mg/dL (>40); Magnesium 2.1 mg/dL (1.6-2.6); Potassium 4.0 mmol/L (3.3-5.1); Sodium 139 mmol/L (135-145); Thyroid Stimulating Hormone 2.13 uIU/mL (0.32-4.0); Total Protein 6.4 g/dL (6.5-8.0); Triglycerides 56 mg/dL (<150)
[2025-07-03 11:33] LABS: Folate 11.2 ng/mL (> or = 4.0); Vitamin B12 564 pg/mL (200-900)
[2025-07-03 11:38] LABS: Microalbum/Creatinine Ratio Ur 170.5 ug/mg cr (<30)
== END 2025-07-03 07:47 | disposition home or self-care (01) ==
LOC: HO.HMGCLDS 07:46
PROVIDERS: PCP Internal Medicine; Visit Provider Internal Medicine
DX: Z12.5 Encounter for screening for malignant neoplasm of prostate (principal); E10.22 Type 1 diabetes mellitus with diabetic chronic kidney disease; E78.00 Pure hypercholesterolemia, unspecified; E10.65 Type 1 diabetes mellitus with hyperglycemia
CPT/HCPCS: 36415; 80053; 80061; 82043; 82570; 82607; 82746; 83036; 83735; 84153; 84439; 84443; 85025

== ENCOUNTER 2025-07-07 12:54 | Outpatient (AMB) | payer MEDICARE, MEDICAID, SELFPAY ==
[2025-07-07 12:58] VITALS: BP 124/72; PULSE 76; TEMP 36.5; O2SAT 95; BMI 20.3
--- NOTE | 2025-07-07 12:58 | A.OFFVIS_ITS ---
Intake Vital Signs 07/07/25 12:58 Height 5 ft 2 in Weight 111 lb 4 oz BMI 20.3 BP 124/72 Blood Pressure Location Lt brachial Position Sitting Pulse 76 Pulse Source Pulse Oximeter Temp 97.7 F Temp Source Temporal Artery Scan Pulse Oximetry (%) 95 Oxygen Delivery Method Room Air Intake Visit Reasons: SWV G0439 Allergies adalimumab (From Humira) Adverse Reaction (Verified 07/07/25 12:59) sleepy pregabalin (From Lyrica) Adverse Reaction (Verified 07/07/25 12:59) Dizzyness Medication List - Last Reconciled 07/07/25 by Rhea Martinez, albuterol sulfate 90 mcg/actuation (Ventolin HFA) 2 puffs PO Q4-6H PRN aspirin (Adult Aspirin Regimen) 81 mg PO DAILY PRN bethanechol chloride 50 mg PO BID 90 days carbamazepine ER 200 mg PO BEDTIME carvedilol 25 mg PO BID finasteride 5 mg PO DAILY 90 days gabapentin 200 mg (2 x 100 mg) PO DAILY PRN glucagon 3 mg/actuation (Baqsimi) mg intranasal hydrocodone-acetaminophen 5-325 mg 1 tab PO BID PRN 30 days insulin aspart U-100 70 units subcut DAILY ipratropium-albuterol 0.5 mg-3 mg(2.5 mg base)/3 mL 3 mL inhalation Q4H PRN 30 days lactulose 20 grams (30 mL) PO DAILY PRN lisinopril 40 mg PO DAILY mirabegron ER (Myrbetriq) 25 mg PO DAILY 90 days potassium citrate ER 10 mEq PO TID rosuvastatin 40 mg PO DAILY sennosides-docusate sodium 8.6-50 mg (Senna Plus) 2 tab-caps (2 x 8.6-50 mg) PO BEDTIME sildenafil (Viagra) 100 mg PO DAILY PRN simethicone (Gas Relief (simethicone)) 125 mg PO BEDTIME Spiriva with HandiHaler (tiotropium bromide) 1 cap inhalation DAILY NS tamsulosin 0.4 mg PO DAILY 90 days HPI SWV G0439 [address]PI [address] Mcbride, PAin MGMT, [facility], Rheuma [facility], Gastro Dr. Devries, Ophtha Eye and lasik [facility] History Urinary frequency COPD exacerbation Bloating Hypoglycemia Chronic constipation Tinea pedis, left Hx of fracture of femur Eczema Cholelithiasis Carpal tunnel syndrome Ankle fracture Diabetes mellitus type 1 Chronic kidney disease (CKD) stage G2/A3, mildly decreased glomerular filtration rate (GFR) between 60-89 mL/min/1.73 square meter and albuminuria creatinine ratio greater than 300 mg/g Hypercholesterolemia Diabetic neuropathy COPD (chronic obstructive pulmonary disease) Coronary artery disease Hypertension Surgical History Hx of colonoscopy Hx of eye surgery Hx of appendectomy H/O umbilical hernia repair History of cholecystectomy History of elbow surgery History of carpal tunnel release Family History Father Hypertension Stroke CVD (cerebrovascular disease) Mother Hypertension CVD (cerebrovascular disease) Diabetes Sister HX: breast cancer Paternal Grandfather Colon cancer Social History Housing: House Alcohol intake: former Patient Tobacco Use Status: Former Tobacco user Tobacco use type: Cigarette Years Smoked: 2002 quit 08/12 e-Cigarette/Vaping Use: Never Used Second Hand Smoke Exposure: No Substance Use Type: Marijuana service: No Current occupational status: disabled Cognitive needs: No Hearing needs: No Vision needs: Yes Questionnaire Medicare Wellness Checkup [age] What gender do you identify with?: male During the past 4 weeks, how much have you been bothered by emotional problems such as feeling anxious, depressed, irritable, sad or downhearted, and blue?: slightly During the past 4 weeks, has your physical & emotional health limited your social activities with family, friends, neighbors, or groups?: moderately During the past 4 weeks, how much bodily pain have you generally had?: mild pain During the past 4 weeks, was someone available to help you if you needed & wanted help?: yes, quite a bit During the past 4 weeks, what was the hardest physical activity you could do for at least 2 minutes?: light Can you get to places out of walking distance without help? (For eg., can you travel alone on buses, taxis or drive your car?): No Can you go shopping for groceries or clothes without someone's help?: Yes Can you prepare your own meals?: Yes Can you do your housework without help?: Yes Because of any health problems, do you need the help of another person with your personal care needs such as eating, bathing, dressing or getting around the house?: No Can you handle your own money without help?: Yes During the past 4 weeks, how would you rate your health in general?: good During the past 4 weeks how have things been going for you?: good & bad parts about equal Are you having difficulties driving your car?: not applicable, I don't use a car Do you always fasten your seat belt when you are in a car?: yes, usually During past 4 weeks, have you been bothered by the following: never: Falling or dizzy when standing up, Trouble eating well? and Problems using the telephone? and sometimes: Sexual problems?, Teeth or denture problems? and Tiredness or fatigue? Have you fallen 2 or more times in the past year?: No Are you afraid of falling?: No Are you a smoker?: no During the past 4 weeks, how many drinks of wine, beer, or other alcoholic beverages did you have?: no alcohol at all Do you exercise for about 20 minutes 3 or more times a week?: no, I usually do not exercise this much Have you been given information to help with the following?: yes: Hazards in your house that might hurt you? and yes: Keeping track of your medications? How often do you have trouble taking medicines the way you have been told to take them?: I always take medicine as prescribed How confident are you that you can control & manage most of your health problems?: very confident What is your race?: White PHQ-9 Over the last 2 weeks, how often have you been bothered by any of the following problems? 1. Little interest or pleasure in doing things: several days 2. Feeling down, depressed, or hopeless: not at all 3. Trouble falling or staying asleep, or sleeping too much: several days 4. Feeling tired or having little energy: several days 5. Poor appetite or overeating: several days 6. Feeling bad about yourself - or that you are a failure or have let yourself or your family down: not at all 7. Trouble concentrating on things, such as reading the newspaper or watching television: not at all 8. Moving or speaking so slowly that other people could have noticed. Or the opposite - being so fidgety or restless that you have been moving around a lot more than usual: not at all 9. Thoughts that you would be better off or of hurting yourself in some way: not at all Total score: 4 Depression Screening Interpretation: Positive Depression Screening Done: Yes 54770 - PHQ-9 Billing: Yes Source: Developed by Drs. Dylan Mendez, Arabella Griffin, Mick Valeor and colleagues, with an educational teto from [employer]. Review of Systems Const Denies poor appetite and Denies weakness Eyes Denies no additional complaints ENT Reports Normal hearing present, Denies dizziness, Denies nasal congestion, Denies tinnitus and Denies sore throat Card Denies chest pain, Denies syncope, Denies rapid heart rate and Denies dyspnea Resp Denies cough and Denies dyspnea GI Denies change in stool character, Reports constipation, Denies diarrhea, Denies nausea and Denies vomiting Denies dysuria and Denies urinary frequency Neuro Reports Normal hearing present, Denies confusion, Denies dizziness, Denies syncope and Denies weakness Psych Denies confusion Physical Exam Vital Signs: Last Vital Signs Temp 97.7 F 07/07/25 12:58 Pulse 76 07/07/25 12:58 BP 124/72 07/07/25 12:58 Pulse Ox 95 07/07/25 12:58 Oxygen Delivery Method Room Air 07/07/25 12:58 BMI result Body Mass Index 20.3 Const General: No confusion Orientation/consciousness: No confusion HEENT Head: Yes normocephalic Ears: external ears normal and TM's normal bilaterally Face and sinus: Yes normal facial exam Mouth: moist mucous membranes Throat: Yes tonsils normal Eyes Conjunctivae: conjunctivae normal Pupils: Equal, round and reactive pupils present and Pupil accommodation reflex normal Direct Ophthalmoscopy: normal light reflex Neck Neck: No lymphadenopathy Thyroid: Thyroid normal Chest Chest palpation & inspection: normal inspection of the chest Resp Effort & Inspection: normal respiratory effort and no audible wheezes Auscultation: clear to auscultation bilaterally, no crackles, no wheezes and lung sounds not diminished Cardio Rate: regular rate Rhythm: regular rhythm Peripheral pulses: radial pulses present and dorsalis pedis present GI Other: guaiac negative prostate N Palpation (GI): no masses Auscultation: normal bowel sounds and normoactive bowel sounds Other: pedal pulse and pin prick good Male General Exam: Yes normal external exam Skin General skin exam: no rashes or lesions noted Rashes: no rashes Neuro General: No confusion Cranial nerves: Yes Equal, round and reactive pupils present and Yes Normal hearing present Cognition (Neuro): normal cognition Gait exam (Neuro): Normal gait present Motor exam (neuro): 5/5 motor strength present throughout Deep tendon reflexes (DTR's): Right brachioradialis reflex intensity grade: 2+, Left brachioradialis reflex intensity grade: 2+, Right patellar reflex intensity grade: 2+ and Left patellar reflex intensity grade: 2+ Extrem General: No edema Office Procedures Flu Questionnaire Does the patient have a severe egg allergy?: No Does the patient have severe life threatening allergies?: No Does the patient have a fever or illness today?: No Has the patient ever had Guillain-Horatio Syndrome?: No Has the patient ever had any past reaction to a flu shot?: No Immunizations Fluarix [id number] (PF) 45 mcg (15 mcg x 3)/0.5 mL IM syringe Performing Provider: Rhea Martinez MD [facility] Administered by: Elo Parker CMA on 07/07/25 13:37 Dose Route Admin Location Dispensed Lot Number Expiration Date NDC Physician General Practice 0.5 mL IM Left Deltoid 0.5 mL [id number] 03/02/26 [id number] Ubi[employer] VIS Given Date VIS Provided VIS Publication Date 07/07/25 Single Vaccine 24 Eligibility Eligibility Date Funding Source Not [facility] Eligible 07/07/25 Private Assessment & Plan Assessment & Plan (1) Medicare annual wellness visit, subsequent: Code(s): Z00.00 - Encounter for general adult medical examination without abnormal findings (2) Diabetes mellitus type 1: Comment: Insulin Pump Dr. Rae Camargo Code(s): E10.9 - Type 1 diabetes mellitus without complications Qualifiers: Diabetes mellitus complication status: with neurologic complications Diabetes mellitus complication detail: with polyneuropathy Qualified Code(s): E10.42 - Type 1 diabetes mellitus with diabetic polyneuropathy (3) Coronary artery disease: Code(s): I25.10 - Atherosclerotic heart disease of [place] coronary artery without angina pectoris Qualifiers: Coronary Disease-Associated Artery/Lesion type: [place] artery [place] vs. transplanted heart: [place] heart Associated angina: without angina Qualified Code(s): I25.10 - Atherosclerotic heart disease of [place] coronary artery without angina pectoris (4) Hypertension: Code(s): I10 - Essential (primary) hypertension Qualifiers: Hypertension type: essential hypertension Qualified Code(s): I10 - Essential (primary) hypertension Plan: Continue with blood pressure medication. Decrease salt intake and exercise lisinopril 40 mg once a day carvedilol 25 mg twice a day (5) Hypercholesterolemia: Code(s): E78.00 - Pure hypercholesterolemia, unspecified Plan: Avoid fried foods, chicken skin, eggs, butter margarine, pastries and meat. Be it pork or beef they have a lot of cholesterol on rosuvastatin 40 mg once a day LDL goal of less than 70 and triglyceride of less than 150 (6) Chronic kidney disease (CKD) stage G2/A3, mildly decreased glomerular filtration rate (GFR) between 60-89 mL/min/1.73 square meter and albuminuria creatinine ratio greater than 300 mg/g: Code(s): N18.2 - Chronic kidney disease, stage 2 (mild) Plan: Keep well hydrated avoid NSAIDs (7) BPH (benign prostatic hyperplasia): Code(s): N40.0 - Benign prostatic hyperplasia without lower urinary tract symptoms Qualifiers: Lower urinary tract symptom presence: symptoms present Lower urinary tract symptom detail: weak urinary stream Qualified Code(s): N40.1 - Benign prostatic hyperplasia with lower urinary tract symptoms; R39.12 - Poor urinary stream Plan: Continue with finasteride, on Myrbetriq and tamsulosin (8) Hip pain, right: Comment: Chronic, progressively worsening with limiting function. I am concerned that he has muscular strain or tendon tear from gluteal muscles at the attachment of the greater trochanter contributing to his pain. He recently started physical therapy. We discussed importance of rehabilitation in trying to regain function. We discussed next steps in obtaining an MRI to evaluate for soft ti ssue pathology, which will aid future management of patient including interventions such as repair by orthopedic surgery of muscle or tendon if significant tear is noted on imaging. Code(s): M25.551 - Pain in right hip Plan: Patient is being seen by Rheumatology, and pain management (9) Lumbar degenerative disc disease: Code(s): M51.36 - Other intervertebral disc degeneration, lumbar region Plan: Patient on narcotic pain medication Plan History of Present Illness The patient is a 64-year-old male with multiple medical problems presenting for an annual wellness visit. His comorbidities include type 1 diabetes mellitus, coronary artery disease, hypertension, COPD, hypercholesterolemia, chronic kidney disease, and BPH. His last colonoscopy was performed in [address] Devries. The patient has a history of right hip osteoarthritis and sees pain management for right hip pain. He received a platelet-rich plasma (PRP) injection in the r ight bursa on April 23, 2025. A pelvic MRI showed severe L4-5 vertebral body edema and disc space narrowing with a possible posterior disc bulge, bilateral hip arthritis, a possible right anterior superior labral tear, minimal right distal gluteal medius minimus peritendinitis, and mild right common hamstring tendinosis. The MRI also noted an old healed fracture of the femoral diaphysis. He is also followed by rheumatology for his right hip and has recently started seeing a chiropractor. He is on narcotic pain medication. Regarding his COPD, the patient is on Spiriva and Breo, but reports still needing to use his albuterol inhaler once or twice a day. He uses it before bed to prevent waking up with shortness of breath. Review of recent lab work from July 03 reveals chronic anemia. His creatinine is stable at 1.24, and electrolytes, magnesium, and liver function tests are normal. His blood sugar was 127 with a hemoglobin A1c of 7.2. His LDL cholesterol was 63. PSA was normal in January and on repeat testing on July 03. B12, folic acid, and thyroid levels are within normal limits, but he does have proteinuria. The patient has a history of allergies to Humira and Lyrica. He no longer drinks alcohol or smokes cigarettes. Health Maintenance The patient received a flu shot during the visit. He was advised to get a COVID- 19 vaccine due to his underlying lung problems. He will be provided with healthcare proxy forms to complete. Social History - Substance Use: The patient denies drinking alcohol and reports he has quit smoking. - Functional Status: The patient reports occasional dizziness. - He uses grab bars in the shower and sits most of the time while showering due to his hip condition. Review of Systems - General: Denies falls or passing out. - HEENT: Denies problems with swallowing. - Reports hearing is good and denies needing a hearing test. - Respiratory: Reports shortness of breath, requiring a rescue inhaler once or twice daily. - Reports waking up in the middle of the night with shortness of breath if he does not take his inhaler before bed. - Cardiovascular: Denies chest heaviness. - Gastrointestinal: Denies heartburn. - Reports bowel movements are fine. - Neurological: Reports occasional dizziness. - Reports some neuropathy in his feet. Physical Exam General: Cooperative, healthy appearing, comfortable, no acute distress and well developed Orientation: Patient oriented x3 Limitations: Bilateral hip arthritis limits patient Head: Normal to inspection Ears: Hearing grossly normal bilaterally Nose: Normal external nose present Face and sinus: Normal facial exam Eyes: Appearance normal, both eyes and all related structures Neck: Normal visual inspection and Yes full ROM Respiratory: Normal respiratory effort and able to speak in complete sentences. Clear to auscultation bilaterally Cardiovascular: Regular rate and rhythm. Normal S1 and S2 GI: Normal to inspection. Soft to palpation and nontender Skin: No rashes or lesions noted Neuro: Patient oriented x3 Extremities: Normal to inspection, but patient has some neuropathy and fungal infection noted between toes. Results - Labs (July 03): - Anemia noted, which is a chronic issue; white blood cell count and platelets are within normal limits. - Electrolytes are normal. - Creatinine is stable at 1.24. - Blood sugar was 127. - Hemoglobin A1c is 7.2%. - Magnesium and liver function tests are normal. - LDL cholesterol is 63. - PSA is normal. - B12, folic acid, and thyroid levels are within normal limits. - Proteinuria is present. - PSA done in January was normal. - Imaging (Pelvic MRI): - Severe L4-5 vertebral body edema and severe L4-5 disc space narrowing with a possible posterior disc bulge. - Old healed fracture of the femoral diaphysis. - Bilateral hip arthritis. - Question of a right anterior superior labral tear. - Minimal right distal gluteus medius minimus peritendinitis and mild right common hamstring tendinosis. Plan Patient was informed and verbally consented to the use of an ambient scribe for clinic note documentation during this visit. 1. Lumbar Degenerative Disc Disease The patient's recent pelvic MRI revealed severe degenerative changes at L4-L5, including vertebral body edema and disc space narrowing. A dedicated lumbar spine MRI was recommended on the report, and an order for this will be placed. The patient has recently started seeing a chiropractor for his back issues. 2. Bilateral Hip Osteoarthritis The patient is followed by pain management and rheumatology for his chronic hip pain. He is scheduled to receive a second PRP injection in his right hip bursa on August 06. He will continue with his current pain management plan. 3. Chronic Obstructive Pulmonary Disease The patient's COPD is not fully controlled on his current regimen of Spiriva and Breo, as evidenced by his daily use of a rescue inhaler. The dose of his Spiriva will be increased. The new prescription will be sent to the [facility]. 4. Type 1 Diabetes Mellitus The patient's HbA1c is 7.2%. He will continue his current diabetes management, which includes an insulin pump. He will also continue to follow up with ophthalmology for his diabetic retinopathy. 5. Hypertension The patient's blood pressure is well-controlled on his current medications. He will continue taking lisinopril 40 mg once daily and carvedilol 25 mg twice daily. 6. Hypercholesterolemia The patient's LDL cholesterol is at goal at 63 mg/dL. He will continue taking rosuvastatin 40 mg once a day. 7. Chronic Kidney Disease The patient's kidney function is stable, with a creatinine of 1.24, though he does have proteinuria. He is advised to stay well-hydrated and avoid NSAIDs. 8. Benign Prostatic Hyperplasia The patient is on multiple medications for his BPH. He will continue taking finasteride, Myrbetriq, and tamsulosin. 9. Tinea Pedis A fungal infection was identified between the patient's toes during the physical exam. It was recommended that he use an [id number] athlete's foot cream twice a day for one month. Discussion Notes I reviewed the results of the patient's recent pelvic MRI with him, highlighting the findings of severe L4-L5 vertebral body edema and disc space narrowing, which explain his back pain. We also discussed the other findings, including bilateral hip arthritis, a possible labral tear, and several areas of tendinosis and tendinitis around his hip. The patient agreed to proceed with a dedicated lumbar spine MRI for a more detailed evaluation, and I confirmed he has no contraindications. We discussed his COPD, noting that his 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 not fully controlled. I explained that I am increasing the dose of his Spiriva inhaler with the hope of improving his symptom control. I reviewed his recent lab results, pointing out that his HbA1c is 7.2%, his LDL cholesterol is at goal, and his kidney function is stable. We also went over his vaccination status, and he received a flu shot. I recommended he also get a COVID-19 vaccine. Finally, I noted that he does not have a healthcare proxy on file and will be provided with the necessary forms to complete. Patient Instructions - We will order a new MRI specifically for your lower back (lumbar spine). - Remember to remove your insulin pump before the MRI test. - Continue with your pain management appointments, including your scheduled hip injection on August 06. - Your prescription for the Spiriva inhaler has been changed to a stronger dose. - Please use this new dose once a day as directed to help with your breathing. - It is recommended that you get a COVID-19 vaccine because of your lung condition. - For the fungal infection on your feet, please use an [id number] athlete's foot cream between your toes twice a day for about a month. - Continue to stay well-hydrated and avoid using NSAID pain relievers like Advil (ibuprofen) or Aleve (naproxen) to protect your kidneys. - We are giving you forms for a Healthcare Proxy. - Please fill them out and bring us a copy at your convenience. Orders: Orders Influenza [id number] Immunization Today Z23 - Encounter for immunization MR lumbar spine wo con Today M51.36 - Other intervertebral disc degeneration, lumbar region Medications: New fluticasone furoate-vilanterol 200-25 mcg/dose (Breo Ellipta) 1 inh inhalation DAILY 60 ea 1RF M51.36 - Other intervertebral disc degeneration, lumbar region Quality Reporting (2019) Depression/Bipolar (159/160/161/177) PHQ-9: Total score: 4 Coding Level of Care Code Medicare Subsequent (G0439) Diagnoses Medicare annual wellness visit, subsequent Z00.00 Type 1 diabetes mellitus with diabetic polyneuropathy E10.42 Diabetes mellitus complication status: with neurologic complications Diabetes mellitus complication detail: with polyneuropathy Coronary artery disease involving [place] coronary artery of [place] heart without angina pectoris I25.10 Coronary Disease-Associated Artery/Lesion type: [place] artery [place] vs. transplanted heart: [place] heart Associated angina: without angina Essential hypertension I10 Hypertension type: essential hypertension Hypercholesterolemia E78.00 Chronic kidney disease (CKD) stage G2/A3, mildly decreased glomerular filtration rate (GFR) between 60-89 mL/min/1.73 square meter and albuminuria creatinine ratio greater than 300 mg/g N18.2 Benign prostatic hyperplasia with weak urinary stream N40.1; R39.12 Lower urinary tract symptom presence: symptoms present Lower urinary tract symptom detail: weak urinary stream Hip pain, right M25.551 Lumbar degenerative disc disease M51.36 Additional Codes PHQ-9 - 07842 - PHQ-9 Billing: Yes ([id number])
--- OUTSIDE RECORDS SUMMARY | 2025-07-07 15:30 | XMS_ITS | Patient Health Record ---
[facility] Organization [facility] Address [address] [place] [address] Care Team Providers Care Patternmaker Bench Name Role Phone Rhea Martinez Primary Care Provider Rachele Vaca Unavailable [phone] Vivienne Greene Unavailable [phone] Allergies Allergen (clinical drug ingredient) Drug/Non Drug Allergy documented on EMR Reaction Allergy Type Onset Date Status acetaminophen Tylenol Unknown Drug Allergy Act john Cortisone raises BP Drug Allergy Active Results Component Value Reference Range Notes HEMOGLOBIN A1C (GLYCOHEMOGLO BIN) Reviewed date:11/14/2024 01:42:13 [...] Polyneuropathy due to type 2 diabetes mellitus (789891629) Type 2 diabetes mellitus with diabetic polyneuropathy (E11.42) Active confirmed Problem Acquired hammer toe of right foot (9715166700306058 ) Other hammer toe(s) (acquired), right foot (M20.41) Active confirmed Response to treatment, Improvemen t Problem Acquired hammer toe of left foot (5367166248726713 ) Other hammer toe(s) (acquired), left foot (M20.42) Active confirmed Response to treatment, Improvemen t Vital Signs Blood pressure diastolic 80 mm Hg 05/22/2025 Height 5ft 3in in 05/22/2025 Blood pressure systolic 120 mm Hg 05/22/2025 Weight 112 lbs 05/22/2025 BMI 19.84 kg/m2 05/22/2025 Procedures Procedure Date Ordered Date Performed Result Body Sit e 90789-BOWRKGL NAIL, 6 OR MORE 08/25/2024 N/A 05971-YYLJ SKIN LESIONS, OVER 4 08/25/2024 N/A Encounters Encounter Location Date Provider Diagnosis [facility] [address] [place] [address] 08/25/2024 Vivienne Greene Type 2 diabetes mellitus with diabetic polyneuropathy E11.42 ; Tinea unguium B35.1 ; Other hammer toe(s) (acquired), right foot M20.41 and Other hammer toe(s) (acquired), left foot M20.[address] [address] 11/14/2024 Rachele Uribe Type 2 diabetes mellitus with diabetic polyneuropathy E11.42 and Tinea unguium B35.[address] [address] 02/13/2025 Rachele Uribe Type 2 diabetes mellitus with diabetic polyneuropathy E11.42 and Tinea unguium B35.[address] [address] 05/22/2025 Rachele Uribe Type 2 diabetes mellitus [...] Treatment Pending Test Test Name Order Date [id number] NAIL, 6 OR MORE 08/25/2024 50468-DJKV SKIN LESIONS, OVER 4 08/25/20 69402-FUCU SKIN LESIONS, OVER 4 09/20/19 43786-INFW SKIN LESIONS, OVER 4 11/24/19 92415-FMMZ SKIN LESIONS, 2 TO 4 02/02/20 Next Appt Details Provider Name:Rachele Cannon Russ cannon, 09/08/2025 02:45:00 PM, [address] [place], [address], Insurance Providers Payer Name Payer Address Payer Phone Subscriber Number Group Number Insured Name Patient Relationship to Insured Coverage Start Date Coverage End Date Medicare National Govt [employer] [address] [place] [address] [phone] [id number] Simone Mir Self - patient is the insured Medical (General) History Medical History History ICD Code Arthritis Back,Hip,and Knee pain Broken bones CAD (Cholesterol) type I diabetes Gall bladder problems Heart disease High blood pressure Kidney disease Lung disease COPD Surgical History Surgery Date(Month/Year) appendectomy Gall bladder removal hernia surgery Orthopedic Surgery- hip, elbow, leg Hospitalization History Reason Date(Month/Year) [facility] breathing issues 08/16/24
--- OUTSIDE RECORDS SUMMARY | 2025-07-07 15:30 | XMS_ITS | Patient Health Record ---
Author Organization [facility] Address [address] [place] [address] Care Team Providers Care Field Radio Operator Name Role Phone Rhea Martinez MD Primary Care Provider Dylan Ayala Unavailable [phone] Reason For Referral No Information Medications Medication [...] Problem Screening for malignant neoplasm of colon (119390420) Encounter for screening for malignant neoplasm of colon (Z12.11) Active confirmed Problem Constipation (88445446) Constipation, unspecified constipation type (K59.00) Active confirmed Plan Of Treatment Future Test Test Name Order Date COLONOSCOPY 06/04/2020 Insurance Providers Payer Name Payer Address Payer Phone Subscriber Number Group Number Insured Name Patient Relationship to Insured Coverage Start Date Coverage End Date MEDICARE OF KARINA ERIKA RODGERS [address] [id number] GAVIOTA MCKINNEY Self - patient is the insured MEDICAID OF [facility] [address] [place] [address] [id number] GAVIOTA MCKINNEY Self - patient is the insured Medical (General) History Medical History History ICD Code Hyperlipidemia Hypertension IDDM--has an Insulin pump COPD Denies MD nor CVA Sees a patient companion for proteinuria Constipation Neg. screening colonoscopy in 01/2010 Decreased vision right eye Surgical History Surgery Date(Month/Year) cholecystectomy appendectomy orthopedic surgeries umbilical hernia repair Retina laser surgery both eyes
--- OUTSIDE RECORDS SUMMARY | 2025-07-07 15:30 | XMS_ITS | Clinical Summary ---
Author Organization [employer] Address [address] [facility] [address] [facility] [address] [place] [address] Care Team Providers Care Wood Tank Builder Name Role Phone Unavailable Primary Care Provider [...] Payer (Ef fective 2022-Present) Name:Simone Quintana Member ID:[id number] Relation to Subscriber:Self Name:Simone Quintana Subscriber ID:[id number] Payer ID:[id number] Group ID:Not on file Type:Medicare Address: [facility] [address] [address] [place] AD[place]
--- OUTSIDE RECORDS SUMMARY | 2025-07-07 15:31 | XMS_ITS | Clinical Summary ---
Author Organization [facility] Address [address] [place] [address] Phone Care Team Providers Care Manager Nuclear Name Role Phone Rhea Martinez MD Unavailable [phone] Kristy Mcbride MD Unavailable [phone] Rhea Martinez MD Primary Care Provider [phone] Allergies Active Allergy Reactions Criticality Noted Date [...] length cannula, he is advised to contact [facility] to discuss his order since [...] and in 6 months to meet with pr Assessment & Plan (10/13/2024 4:15 PM EST): [...] and in 6 months to meet with pr Assessment & Plan (09/06/2020 10:52 PM EST): [...] times and a slight reduction in the armature bander hours to reduce risk of hypoglycemia at [...] Description 04/13/2025 2:00 PM EDT Office Visit [facility] [address] [place] [address] [place] [address] Kristy Mcbride MD 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); Type 1 diabetes mellitus with diabetic neuropathy; Type 1 diabetes mellitus with diabetic peripheral angiopathy without gangrene; Insulin pump in place; Primary hypertension; Hyperlipidemia, unspecified hyperlipidemia type 04/08/2025 Telephone [facility] [address] [place] [address] [place] [address] Marisa Monsalve MA [...] Info) Description 07/20/2025 1:00 PM EST Nutrition [facility] [address] [place] [address] Kristy Mcbride MD [address] [place] [phone] Laura Parham LDN [address] [place] [address] [email or web address] 10/12/2025 2:40 PM EST Office Visit [facility] [address] [place] [address] [place] [address] Kristy Mcbride MD [address] [place] [address] Health Maintenance Due Date Last Done Comments [...] Insulin pump in place BASIC METABOLIC PANEL (BMP) Routine 12/25/2022 2:05 PM EDT Chronic kidney disease, stage II (mild) Type 1 diabetes mellitus with diabetic neuropathy from Last 3 Months or Most Recently Relevant to Health Maintenance Results * (ABNORMAL) POCT Hemoglobin A1c (04/13/2025 2:26 PM EDT) Hemoglobin A1c 7.3(A) 4.2 - 5.6 % [facility] Other 04/13/2025 2:26 PM EDT us Kristy Mcbride MD LAB POCT ENTER/EDIT ORDERABLES Final Result Performing Organization Address [facility] Co de Phone Number [id number] [place] [address] * (ABNORMAL) Basic metabolic panel (12/25/2022 2:05 PM EDT) SODIUM 138 133 - 146 mmol/L [facility] CHLORIDE 102 96 - 108 mmol/L [facility] POTASSIUM 5.2(H) 3.3 - 5.1 mmol/L [facility] CO2 28 21 - 35 mmol/L [facility] BUN 29(H) 6 - 19 mg/dL [facility] CREATININE 1.50 0.5 - 1.5 mg/dL [facility] GLUCOSE 231(H) 70 - 99 mg/dL [facility] CALCIUM 9.2 8.4 - 10.3 mg/dL [facility] EGFR 52(L) >59 mL/min/1.7 3m2 [facility] Comment:Estimated glomerular filtration rate calculated using the CKD-EPI refit equation. ANION GAP 13 10 - 20 mmol/L [facility] Blood 12/25/2022 2:05 PM EDT 12/25/2022 2:08 PM EDT Rhea Martinez MD LAB BLOOD BKR ORDERABLES Madelyn l Result Performing Organization Address [facility]/ZIP Co de Phone Number [address] [address] from Last 3 Months or Most Recently Relevant to Health Maintenance Insurance MEDICARE PART A & B [id number] [place] [address] [employer] MEDICARE PART A & [facility] [address] [place] [id number] MEDICARE PART A & B [facility]IC[facility] & [facility] & [facility] A & B Member Subscriber Plan / Payer (Ef fective 2005-Present) Name:Simone Jordan Member ID:[id number] Relation to Subscriber:Self Name:Simone Jordan Subscriber ID:[id number] Payer ID:[id number] Group ID:Not on file Type:Medicare Address: [employer] [address] [address] [facility] & [facility] Care Teams Manager Nuclear Relationship Specialty Start Date End Date Rhea Martinez MD [address] [place] [address] PCP - General Internal Medicine 07/04/17 Rhea Martinez MD [address] [place] [address] Historical LMR Provider 06/18/17 Kristy Mcbride MD [address] [place] [address], [address] [place] [phone] [email or web address] Historical LMR Provider 06/18/17 Additional Source Comments The information contained in this document represents components of the legal health record. It is not the complete legal health record.[facility]
== END 2025-07-07 13:40 | disposition home or self-care (01) ==
LOC: HO.HMCH 12:55
PROVIDERS: PCP Internal Medicine; Visit Provider Internal Medicine
DX: Z00.00 Encounter for general adult medical examination without abnormal findings (principal); E10.42 Type 1 diabetes mellitus with diabetic polyneuropathy; I25.10 Atherosclerotic heart disease of native coronary artery without angina pectoris; I12.9 Hypertensive chronic kidney disease with stage 1 through stage 4 chronic kidney disease, or unspecified chronic kidney disease; E78.00 Pure hypercholesterolemia, unspecified; N18.2 Chronic kidney disease, stage 2 (mild); N40.1 Benign prostatic hyperplasia with lower urinary tract symptoms; R39.12 Poor urinary stream; M25.551 Pain in right hip; M51.369 Other intervertebral disc degeneration, lumbar region without mention of lumbar back pain or lower extremity pain; Z23 Encounter for immunization

== ENCOUNTER → 2025-07-07 12:54 | Outpatient (BNVA) | payer MEDICARE, MEDICAID, SELFPAY | PROVIDERS: PCP Internal Medicine; Visit Provider Internal Medicine | DX: Z13.31 Encounter for screening for depression (principal); Z23 Encounter for immunization | CPT/HCPCS: 90471; 90656; 96127 ==

== ENCOUNTER 2025-07-23 14:51 | Outpatient (REF) | payer MEDICARE, MEDICAID, SELFPAY ==
--- OUTSIDE RECORDS SUMMARY | 2025-07-20 13:00 | XMS_ITS | Encounter Summary ---
Author Organization [facility] Address [address] [facility] [address] [place] [phone] Phone Care Team Providers Care National Sales Director Name Role Phone Rhea Martinez MD Unavailable [phone] Kristy Mcbride MD Unavailable [phone] Rhea Martinez MD Primary Care Provider [phone] Reason for Visit * Reason Comments Nutrition Pt states he had a P E a month ago and he got his HBA1C drawn, 7.2% was his result. 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); Insulin pump in place Social History Tobacco Use Types Packs/Day Years Used Date Smoking Tobacco: Former Cigarettes Q uit: 2004 Passive Smoke Exposure: Past Smokeless Tobacco: Never Alcohol Use Standard Drinks/Week Comments No 0 [...] on file documented as of this encounter Last Filed Vital Signs Vital Sign Reading Time Taken Comments Blood Pressure - - Pulse - - Temperature - - Respiratory Rate - - Oxygen Saturation - - Inhaled Oxygen Concentration - - Weight 51 kg (112 lb 8 oz) 07/20/2025 1:00 PM ES T Height - - Body Mass Index 19.93 10/13/2024 1:38 PM EST documented in this encounter Patient Instructions * Patient Instructions* Laura Parham LDN - 07/20/2025 1:00 PM EST Images from the original note were not included. Recommendations/Plan Keep up the good work If you are interested in one of the new sensors for the Medtronic If you are interested you can call the pathway team at [phone] The options are the instinct sensor, 15 day wear, 1 hour warm up, start up on phone or the simplerasync 6 day and 24 hour kurt period, 2 hour warm up, start up on pump Medications: No change to pump settings today Other risk reduction practices: Check expiration date of your Baqsimi and let Dr. Mcbride know if so we can send in a refil Recommend Appointment with: N/A Please bring your blood sugar meter and any written food or blood sugar logs to every appointment. Follow up: With Dr. Mcbride as scheduled on 10/12/25 at 2:40 pm With Basket Weaver/Laura after 01/09/26 [For scheduling: EXT-C visit] Calling sooner as needed documented in this encounter Progress Notes * Laura Parham, LDN - 07/20/2025 1:00 PM EST Images from the original note were not included. Diabetes Education Program Status: Completed; being provided ongoing support applying education/knowledge to self-management of diabetes Referring provider: PCP Has previously met with a community health educator: yes Simone seen via telephone today for review of diabetes self-management and glucose control. Last seenby Dr. Mcbride 04/13/25. Today Simone reports he is doing ok. Has not lost any more weight since last visit, is eating small frequent meals to try and eat more throughout the day. Blood sugar control has been good, we reviewed new sensors with [employer] and he will reach out to them if interested. Social Hx: Lives with older sister Has two cats No longer driving Simone does all the cooking, cleaning, shopping Health History/Diabetes Pathophysiology Identifies type of diabetes, basic pathophysiology of their diabetes, and components of treatment plan.[Diabetes Pathophysiology and Treatment] Demonstrates understanding/competency Problem list/health history reviewed: yes Type of diabetes: Diabetes mellitus Type 1 Patient aware of diagnosis and able to state type of diabetes: yes Diagnosed approximately: at age 76 years old Taking Medications Safely and Effectively Able to state diabetes related medication(s) and dose(s). Able to report method of action and potential common side effects. Able to evaluate effectiveness of their medication(s). Using safely without missing doses. [Taking Medications] Demonstrates understanding/competency Able to report correct procedures for: dosing and injecting insulin (or via patch or pump), care/storage of insulin, injection sites/rotation, quick carb/treatment of lows, disposal of sharps. [Taking Medications] Needs reinforcement/review, Reviewed today Diabetes Medications: Reviewed with Simone today Diabetes medications managed by: [facility] Reports issues with supplies: No, gets through [employer] Insulin Pump Pump: Medtronic 780G in Automode/Smartguarde Type of insulin being used in pump: Aspart ([facility]) Pump site reviewed: yes, lipohypertrophy noted, rotating sites well, using abdomen Pump site change done: no Using following infusion sets: [employer] [place] Advance (90 degree, all-in-one weaver hand), potentially interested in trying the infusion sites Patient changing infusion site frequently enough: yes, sometimes forgets, looking into extended infusion set. Should change every 2 days due to hypertrophy, sooner if needed. Filling tubing before connecting to body: yes Priming cannula with each site change: yes Checks glucose 2 hours after site changes to check for infusion site malfunction: no, reviewed today Patient changes pump settings independently between visits: no Patient able to adjust pump settings if needed: no, feels he would need assistance Patient able to describe signs pump settings might need adjusting: partially, reviewed today Patient able to describe function of ISF/CF, IOB/Active Insulin Time, Basal Rates: yes Using pump software on phone/computer: no Has patient taken any insulin injections recently: No Does patient have a plan in case of pump failure: yes Is patient... bolusing before meals: no; typically bolusing right after eating and this has been longstanding practice because Simone finds he will crash before finishing meal carb counting, confident with carb counts, entering all carbs into pump: yes correcting high BG: yes over riding the pump recommendations: No using extended boluses: N/A using Sleep Mode (if available): N/A using Exercise/Activity/Temp Target Mode (if available): yes, while grocery shopping using temp basal rates: no Prevent, Detect, and Treat Acute and Chronic Complications Identifies acute and chronic risks of diabetes. Identifies ways to prevent, detect, and treat acuteand chronic complications. Able to list potential symptoms of hyper/hypoglycemia (as relevant). Able to describe actions for lowering high blood sugar levels and how to treat low blood sugar (as relevant). Able to identify sick day and/or back up plan. Understands importance of pre- planning (as relevant) [Acute Complications, Chronic Complications] Demonstrates understanding/competency Complications related to patient's diabetes: Yes Other: retinopathy, autonomic neuropathy, peripheral neuropathy and cardiovascular disease, kidney disease (reports at last visit went well now only going once a year) Patient able to describe relationship between blood glucose levels and long-term complication risks: yes Does patient... feel they are having issue with frequent hyperglycemia: no know what to do if blood sugar is running high: yes feel they are having issue with frequent hypoglycemia: no have a history of hypoglycemia or is at risk for hypoglycemia: yes know the symptoms of low blood sugar reactions: yes confirm glucose with BG meter or CGM when feels low: yes find they are generally hypoglycemic unaware/asymptomatic: no carry something to treat low blood sugar: yes have glucagon if at risk for severe low blood sugar: yes, has script for Amira, sister would be most likely able to use the nasal spray, hasn't had to use it, does not know expiration date Preventative Care is Up to Date (Patient Reported) At least yearly visit with primary care: yes, last week At least yearly eye exam: yes. Date of last: went recently and reports there was no active bleeding Dental care, at least 6 month cleanings: yes; Yearly flu shot: yes, COVID vaccine: yes, Foot care Patient having any issues with self-foot care and nail clipping: Yes. Dr. Ndiaye retired but is seeing a new doctor in that office Doing daily foot checks: yes Seeing a television production technician: yes Patient able to identify plan/back up supplies for severe weather or crisis situation: yes Patient able to report sick day plan: yes Incorporating Healthy Eating Able to describe impact of amount, type, and timing of food on glucose levels. Able to identify personal influences, obstacles, and solutions to incorporating balanced meal plan into lifestyle. [Healthy Eating] Demonstrates understanding/competency Patient Reported Nutrition: Food allergies/intolerances/avoidances/cultural practices/special diets: No reports no restrictionsto protein from nephology Difficulty chewing or swallowing: No Current issues with n/v/d/c/gastroparesis: Yes. Constipation, taking senna daily, sometimes takes miralax Reports adequate access to food: Yes Recent change in weight?: Lost, has lost in last year but has not lost more since last visit Appetite: never really feel hungry 2 good meals and snacks, has been trying to increase intake Patient involved in cooking meals: Yes Patient involved in grocery shopping: Yes Getting take-out or going to restaurant regularly: no Patient carb counting: Yes Patient reading labels: Yes Eating protein with meals: yes Eating vegetables daily: tries to Using primarily heart healthy fats/oils and limiting sodium: no Typical snacks: banana, cookies, urdu muffin Typical beverages: coffee (milk and splenda), crystal lite Alcohol consumption: No, previously but has since mostly avoided; Aware of potential hypoglycemia risk with alcohol consumption: yes Food Recall: Today had some cereal with milk and banana, for a snack had some peanut butter crackers and coffee,dinner last night had cheese burger on 2 slices of bread, tatertots Incorporating Being Active Able to state impact of physical activity on blood glucose levels. Verbalizes need for exercise andprecautions to take. Able to incorporate being active into lifestyle. [Being Active] Needs reinforcement/review, Reviewed today Hip pain has progressively gotten worse, broke in 90's, has arthritis in hip and back, now using walker, not able to be as active or grocery shop Limitations: Yes. COPD (using nebulizer they want him to do it twice daily); pain in legs; has broken both legs previously severely; neuropathy Experiencing hypoglycemia with exercise: yes, cant recall type or length of activity that tends to lead to lows Monitoring Glucose and Interpreting Health Data for Self-Management Decision Making and Problem Solving Demonstrates ability to monitor blood glucose and knows how to use results (via glucometer, CGM, and/or labs as relevant). Identifies recommended blood glucose/A1c targets and personal targets. [Monitoring Glucose] Needs reinforcement/review, Reviewed today Blood Glucose Monitoring / Meter/ CGM Download: see scanned documents Glucometer type: Contour Next Link, testing BG 1 x when starting new sensor, more often as needed CGM: [employer] Guardian 4 CGM site change done: no CGM site reviewed: yes, having some issues with sensor updating and an additional calibration requested;, using outer thighs Aware of CGM lag time: yes Alarms: reviewed, low alert is on if at risk for hypoglycemia: yes Using dandre(s) on phone: no; generally doesn't feel comfortable with tech and also difficulty with eye sight Time in range over the last two weeks has been good at 81%, not having frequent lows. Feels like settings are working well. Continues to have trouble with sensors, reviewed new ones from [employer] which he will look into LABS: Lab Results Component Value Date RMDD6OGWV 7.3 (*) 04/13/2025 OOFC8QLKE 7.4 (*) 09/30/2019 GHBA1C 8.2 (H) 09/29/2024 GHBA1C 7.6 (H) 04/02/2024 GHBA1C 7.9 (H) 12/24/2023 Lab Results Component Value Date GLU 231 (H) 12/25/2022 GLU 117 (H) 03/20/2022 Lab Results Component Value Date CHOL 153 03/14/2021 HDL 84 (*) 03/14/2021 LDL 58 03/14/2021 EGFR Date Value Ref Range Status 12/25/2022 52 (L) >59 mL/min/1.73m2 Final Comment: Estimated glomerular filtration rate calculated using the CKD-EPI refit equation. No results found for: MICROALBUR , PQMW76UDW , MALBCRE , GRMALB BP Readings from Last 3 Encounters: 04/13/25 124/72 10/13/24 130/58 04/11/24 130/64 Weights 04/13/25 1405 50.6 kg (111 lb 9.6 oz) Office Visit on 04/13/2025 10/13/24 1338 53.3 kg (117 lb 6.4 oz) Office Visit on 10/13/2024 07/14/24 1401 53.7 kg (118 lb 6.4 oz) Nutrition on 07/14/2024 04/11/24 1334 57 kg (125 lb 9.6 oz) Office Visit on 04/11/2024 10/08/23 1326 55.8 kg (123 lb) Office Visit on 10/08/2023 04/05/23 1021 57.1 kg (125 lb 12.8 oz) Office Visit on 04/05/2023 10/02/22 1314 56.7 kg (125 lb) Office Visit on 10/02/2022 06/30/22 1235 56.3 kg (124 lb 3.2 oz) Nutrition on 06/30/2022 03/30/22 1019 58.5 kg (129 lb) Office Visit on 03/30/2022 09/29/21 0939 56.2 kg (124 lb) Office Visit on 09/29/2021 Estimated body mass index is 19.77 kg/m?? as calculated from the following: Height as of 10/13/24: 160 cm (5' 2.99 ). Weight as of 04/13/25: 50.6 kg (111 lb 9.6 oz). Lifestyle for Healthy Coping, Recognizing Diabetes Distress and Support Options Able to recognize diabetes related distress and support options. Able to identify coping and stressmanagement skills and adapt to lifestyle. [Lifestyle and Healthy Coping, Diabetes Distress, SupportOptions] Demonstrates understanding/competency Reports recent illness or injury: No Reports feeling stressed: yes same 50/50 Reports stress surrounding diabetes diagnosis or management: No Patient able to identify support network and/or stress management techniques they find helpful: yes Sleeping well: no Better Sleep apnea: yes Functional Health Literacy and Numeracy Able to demonstrate functional health literacy and numeracy regarding diabetes [e.g., able to understand and interpret glucose targets, A1C target, carb awareness, carb counting, carb choices etc. asrelevant. [Health Literacy and Numeracy] Demonstrates understanding/competency Problem Solving and Behavioral Changes Patient Selected Behavioral Goal(s) and SMART action plan(s) Can state diabetes self-management treatment goals and strategies to reach goals. At least 1 patient-selected behavior goal with SMART action plan created/evaluated in flowsheets. Reviewed yes Patient selected Behavioral Objectives/Goals are identified separately in the Documentation Flowsheets Activity using the flowsheet Diabetes Education Behavioral Objectives in order to be easily accessible in one aggregated location and comparable across time. Education plan based on patient's individual concerns and needs. Education plan reviewed with patient and patient agreeable to plan. Will continue to monitor/reassess together at each visit. Instruction method: Individual Potential barriers: visually impaired, uses magnifying glass Education PlanIndividual Follow-Up; no group diabetes education classes available at this time DSMES Support Plan (accessible community or personal resource): has contact with other people with diabetes for a long time that used to be in a diabetes group together Education Materials Provided: Medtronic Pump info regarding imaging/xray; copy of pump settings Nutrition Education Topics Reviewed: Amount and timing of carbohydrate, Meal Planning, Carb Counting, SMBG, Hypoglycemia, Exercise Blood Glucose Meter Training: Patient previously trained; reviewed sensor use Insulin Instruction: Patient was instructed on the following topics: insulin pump Risk Counseling Given: Pump Therapy Education Topics Discussed: Coping and stress managment, self care through lifestyle, medication, exercise, Foot care, Routine Screening Exams, insulin pump, CGM Patient Demonstrated: good understanding through teach back Recommendations/Plan Keep up the good work If you are interested in one of the new sensors for the Medtronic If you are interested you can call the pathway team at [phone] The options are the instinct sensor, 15 day wear, 1 hour warm up, start up on phone or the simplerasync 6 day and 24 hour kurt period, 2 hour warm up, start up on pump Medications: No change to pump settings today Other risk reduction practices: Check expiration date of your Jossimi and let Dr. Mcbride know if so we can send in a refil Recommend Appointment with: N/A Please bring your blood sugar meter and any written food or blood sugar logs to every appointment. Follow up: With Dr. Mcbride as scheduled on 10/12/25 at 2:40 pm With Basket Weaver/Laura after 01/09/26 [For scheduling: EXT-C visit] Calling sooner as needed This patient has diabetes This patient has been using a blood glucose meter and performing 4 or more blood glucose readings daily or is using CGM to monitor glucose This patient is insulin-treated with 3 or more daily injections OR a continuous subcutaneous insulin infusion pump This patient's insulin treatment regimen requires frequent adjustment by the patient on the basis of blood glucose meter readings or continuous glucose monitoring results This patient will return for follow up visits at least every 3 months to assess adherence to insulin pump regimen, the effect of the current diabetes treatment regimen and to have insulin and medication therapy adjusted as needed for optimal outcome Time spent with Patient: 30 minutes. See scanned document. Visit Type: EXT-C * documented in this encounter Plan of Treatment Upcoming Encounters Date Type Department Care Team (Late st Contact Info) Description 10/12/2025 2:40 PM EST Office Visit [facility] [address] [place] [address] Kristy Mcbride MD [address] [place] [address], [address] [place] [phone] 01/18/2026 1:00 PM EDT Nutrition [facility] [address] [place] [address] Laura Parham LDN [address] [place] [address], [address] [place] [phone] documented as of this encounter Goals Goal Patient Goal Type Associated Problems Recent Progress Patient-Stated? 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 [address] [place] [phone] Historical LMR Provider 06/18/17 Kristy Mcbride MD [address] [facility] 1[address] [place] [address] [email or web address] Historical LMR Provider 06/18/17 documented as of this encounter Additional Source Comments The information contained in this document represents components of the legal health record. It is not the complete legal health record.[facility]
--- NOTE | ~2025-07-23 | US_ITS ---
EXAMINATION: US RETROPERITONEAL LIMITED (RENAL ONLY) CLINICAL INFORMATION: N20.0. COMPARISON: July 17, 2024 TECHNIQUE: Real-time ultrasound kidneys using grayscale technique. FINDINGS: RIGHT KIDNEY: 8 x 5 x 4 cm (SAG x AP x TRV). Normal echotexture. Renal cortical thinning. No hydronephrosis. There are few scattered, subcentimeter less than 6 mm anechoic lesions. There are hyperechoic foci at the corticomedullary junction of the midportion, the largest measures 2.2 cm. LEFT KIDNEY: 9 x 5 x 6 cm (SAG x AP x TRV). Normal echotexture. Renal cortical thinning. No hydronephrosis. There is a 1.7 cm anechoic lesion in the midportion. Hyperechoic foci, possibly artifactual. US/US renal BI IMPRESSION: Bilateral nonobstructing nephrolithiasis. Bilateral renal cysts.. Electronically signed by: Crescencio Mckenzie MD 07/23/2025 04:00 PM [facility]
--- OUTSIDE RECORDS SUMMARY | 2025-07-23 20:20 | XMS_ITS | Patient Health Record ---
Author Organization [facility] Address [address] [place] [phone] Care Team Providers Care Dye House Vat Worker Name Role Phone Rhea Martinez MD Primary Care Provider Dylan Ayala [phone] Reason For Referral No Information Medications Medication SIG (Take, Route, Frequency, Duration) Notes Start Date End Date Status Breo Ellipta Active Albuterol Active Aspir-81 Active Spiriva HandiHaler A ctive Ventolin HFA Not-[place] ing/PRN Contour Next Test Ac tive Centrum Men Active Vitamin D Active NovoLOG Active Rosuvastatin Calcium Active Lisinopril Active Gabapentin Active carBAMazepine ER Act john Immunizations Vaccine Route Administration Date Status Comme nts Influenza Unknown 06/04/2019 Administered Social History Tobacco Use: Social History Observation Description Date Details (start date - stop date) Former Smoker NA - NA Social History Drugs/Alcohol: Social Info Question Answer Notes Alcohol Screen Did you have a drink containing alcohol in the past year? No Points 0 Interpretation Negative Tobacco Use: Social Info Question Answer Notes Tobacco Use/Smoking Patient is a former smoker How long has it been since you last smoked? > 10 years Additional Details Category Social Info Options Details Miscellaneous: Marital status: single Occupation: retired Section Notes: Nonsmoker; No alcohol Problems Problem Type SNOMED Code ICD Code Onset Dates Problem Status W/U Status Risk Notes Problem Screening for malignant neoplasm of colon (133958954) Encounter for screening for malignant neoplasm of colon (Z12.11) Active confirmed Problem Constipation (81801697) Constipation, unspecified constipation type (K59.00) Active confirmed Plan Of Treatment Future Test Test Name Order Date COLONOSCOPY 06/04/2020 Insurance Providers Payer Name Payer Address Payer Phone Subscriber Number Group Number Insured Name Patient Relationship to Insured Coverage Start Date Coverage End Date MEDICARE OF [place] [address] [place] [address] [id number] GAVIOTA MCKINNEY Self - patient is the insured MEDICAID OF [facility] [address] [place] [phone] [id number] GAVIOTA MCKINNEY Self - patient is the insured Medical (General) History Medical History History ICD Code Hyperlipidemia Hypertension IDDM--has an Insulin pump COPD Denies [place] nor CVA Sees a regional tanker truck driver for proteinuria Constipation Neg. screening colonoscopy in 01/2010 Decreased vision right eye Surgical History Surgery Date(Month/Year) cholecystectomy appendectomy orthopedic surgeries umbilical hernia repair Retina laser surgery both eyes
--- OUTSIDE RECORDS SUMMARY | 2025-07-23 20:20 | XMS_ITS | Encounter Summary ---
Author Organization [facility], Address [address] [place] [address] Phone Care Team Providers Care Dedenter Name Role Phone Rhea Martinez MD Primary Care Provider [phone] Encounter Details Date Type Department Care Team (Late st Contact Info) Description 10/27/2021 Documentation Only [facility], [address] [place] [address] Rico Lamb MD [address] [place] [address] [place] [address] Social History Tobacco Use Types Packs/Day Years Used Date Smoking Tobacco: Former Cigarettes 2 Q uit: 07/28/2003 Smokeless Tobacco: Never Comments:Smoking [...] Visit [facility] [address] [place] [address] Rico Lamb MD [address] [place] [address] [place] [address] documented as of this encounter Visit Diagnoses Not on filedocumented in this encounter Care Teams Dedenter Relationship Specialty Start Date End Date Rhea Martinez MD [facility] [place] [address] [place] PCP - General 07/08/19 documented as of this encounter
--- OUTSIDE RECORDS SUMMARY | 2025-07-23 20:20 | XMS_ITS | Clinical Summary ---
Author Organization [facility] [place], Address [address] [place] [address] [place] [address] Phone Care Team Providers Care Parlor Maid Name Role Phone Rhea Martinez MD Primary Care Provider [phone] Allergies Active Allergy Reactions Criticality Noted Date [...] Visit [facility] [place], [address] [place] [phone] Rico Lamb MD [address] [place] [address] [place] [address] Health Maintenance Due Date Last Done [...] PM EDT) Hemoglobin A1C 7.4(H) (4.0-5.6) % [facility] Comment: MONITORING: In known diabetic patients, hemoglobin A1c targets should be discussed with health care provider. DIAGNOSTIC USE: The [place] Diabetes Association (ADA) and the World Health [...] Supplement 1 Testing performed or reported by [facility], a Service of [facility], [address] [place] [address] Curtis Marks MD, Division Sergeant [facility]# [id number] Blood specimen (specimen) Venous blood / Unknown 07/05/2023 12:15 PM EDT 07/05/2023 12:26 PM EDT us Rico Lamb MD LAB BLOOD ORDERABLES Final Res ult [facility] from Last 3 Months or Most Recently Relevant to Health Maintenance Insurance Medicare Medicaid [place] Care Teams Parlor Maid Relationship Specialty Start Date End Date Rhea Martinez MD [facility] [address] [place] PCP - General 07/08/19
--- OUTSIDE RECORDS SUMMARY | 2025-07-23 20:20 | XMS_ITS | Encounter Summary ---
Author Organization [facility] [place], Address [address] [place] [address] Phone Care Team Providers Care Deputy Register Of Deeds Name Role Phone Rhea Martinez MD Primary Care Provider [phone] Encounter Details Date Type Department Care Team (Late st Contact Info) Description 08/11/2024 Documentation Only [facility] [address] [place] [address] Margareth Garcia [address] [place] [address] Social History Tobacco Use Types [...] Visit [facility] [address] [place] [address] Rico Lamb MD [address] [facility] [place] [address] documented as of this encounter Visit Diagnoses Not on filedocumented in this encounter Care Teams Deputy Register Of Deeds Relationship Specialty Start Date End Date Rhea Martinez MD [facility] [place] [address] [place] PCP - General 07/08/19 documented as of this encounter
--- OUTSIDE RECORDS SUMMARY | 2025-07-23 20:20 | XMS_ITS | Patient Health Record ---
Author Organization [facility] Address [address] [place] [address] Care Team Providers Care Special Projects Manager Name Role Phone Rhea Martinez Primary Care Provider Rachele Vaca Unavailable [phone] Vivienne Greene Unavailable [phone] Allergies Allergen (clinical drug ingredient) Drug/Non Drug [...] Polyneuropathy due to type 2 diabetes mellitus (069103657) Type 2 diabetes mellitus with diabetic polyneuropathy (E11.42) Active confirmed Problem Acquired hammer toe of right foot (2782035118552098 ) Other hammer toe(s) (acquired), right foot (M20.41) Active confirmed Response to treatment, Improvemen t Problem Acquired hammer toe of left foot (4638245115325620 ) Other hammer toe(s) (acquired), left foot (M20.42) Active confirmed Response to treatment, Improvemen t Vital Signs Blood pressure diastolic 80 mm Hg 05/22/2025 Height 5ft 3in in 05/22/2025 Blood pressure systolic 120 mm Hg 05/22/2025 Weight 112 lbs 05/22/2025 BMI 19.84 kg/m2 05/22/2025 Procedures Procedure Date Ordered Date Performed Result Body Sit e [id number] NAIL, 6 OR MORE 08/25/2024 N/A [id number] SKIN LESIONS, OVER 4 08/25/2024 N/A Encounters Encounter Location Date Provider Diagnosis [facility] [address] [place] [address] 08/25/2024 Vivienne Greene Type 2 diabetes mellitus with diabetic polyneuropathy E11.42 ; Tinea unguium B35.1 ; Other hammer toe(s) (acquired), right foot M20.41 and Other hammer toe(s) (acquired), left foot M20.[address] [address] 11/14/2024 Rachele Uribe Type 2 diabetes mellitus with diabetic polyneuropathy E11.42 and Tinea unguium B35.[address] [address] 02/13/2025 Rachele Uribe Type 2 diabetes mellitus with diabetic polyneuropathy E11.42 and Tinea unguium B35.[address] [address] 05/22/2025 Rachele Uribe Type 2 diabetes mellitus [...] Treatment Pending Test Test Name Order Date [id number] NAIL, 6 OR MORE 08/25/2024 11623-[id number] SKIN LESIONS, OVER 4 08/25/20 25711-XMPJ SKIN LESIONS, OVER 4 09/20/19 55382-BLBA SKIN LESIONS, OVER 4 11/24/19 91084-CXPS SKIN LESIONS, 2 TO 4 02/02/20 Next Appt Details Provider Name:Rachele Cannon Russ cannon, 09/08/2025 02:45:00 PM, [address] [place], [address], Insurance Providers Payer Name Payer Address Payer Phone Subscriber Number Group Number Insured Name Patient Relationship to Insured Coverage Start Date Coverage End Date [employer] [place] [employer] Advantage [address] [place] [address] [phone] [id number] Simone Mir Self - patient is the insured Medical (General) History Medical History History ICD Code Arthritis Back,Hip,and Knee pain Broken bones CAD (Cholesterol) type I diabetes Gall bladder problems Heart disease High blood pressure Kidney disease Lung disease COPD Surgical History Surgery Date(Month/Year) appendectomy Gall bladder removal hernia surgery Orthopedic Surgery- hip, elbow, leg Hospitalization History Reason Date(Month/Year[place] [facility] [place]16[place]
--- OUTSIDE RECORDS SUMMARY | 2025-07-23 20:20 | XMS_ITS | Encounter Summary ---
Author Organization [facility] [place], Address [address] [place] [address] Phone Care Team Providers Care Microstrategy Developer Name Role Phone Rhea Martinez MD Primary Care Provider Encounter Details Date Type Department Care Team (Late st Contact Info) Description 07/06/2022 Documentation Only [facility] [place], [address] [place] [address] Rico Lamb MD [address] [place] [address] [place] [address] Social History Tobacco Use Types [...] Visit [facility] [address] [place] [address] Rico Lamb MD [address] [place] [address] [place] [address] documented as of this encounter Visit Diagnoses Not on filedocumented in this encounter Care Teams Microstrategy Developer Relationship Specialty Start Date End Date Rhea Martinez MD [facility] [place] [address] [place] PCP - General 07/08/19 documented as of this encounter
--- OUTSIDE RECORDS SUMMARY | 2025-07-23 20:21 | XMS_ITS | Clinical Summary ---
Author Organization [facility] Address [address] [place] [address] Phone Care Team Providers Care Machinery Mechanic Name Role Phone Rhea Martinez MD Unavailable [phone] Kristy Mcbride MD Unavailable Rhea Martinez MD Primary Care Provider Allergies [...] length cannula, he is advised to contact [facility] to discuss his order since we [...] and in 6 months to meet with ar Assessment & Plan (10/13/2024 4:15 PM EST): [...] and in 6 months to meet with ar Assessment & Plan (09/06/2020 10:52 PM EST): [...] times and a slight reduction in the director of early childhood hours to reduce risk of hypoglycemia at [...] Encounters Date Type Department Care Team Description 07/20/2025 1:00 PM EST Nutrition [facility] [address] [place] [address] [place] [address] Kristy Mcbride MD Dawicki, Jessica Courtney, LDN 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); Insulin pump in place 07/13/2025 Telephone [facility] [address] [place] [phone] Marisa Monsalve [place] CLINICAL NOTES from Last [...] EDT Inhaled Oxygen Concentration - - Weight 51 kg (112 lb 8 oz) 07/20/2025 1:00 PM ES T Height 160 cm (5' 2.99 ) 10/13/2024 1:38 PM EST Body Mass Index 19.93 10/13/2024 1:38 PM EST Plan of Treatment Upcoming Encounters Date Type Department Care Team (Late st Contact Info) Description 10/12/2025 2:40 PM EST Office Visit [facility] [address] [place] [address] [place] [address] Kristy Mcbride MD [address] [place] [address] 01/18/2026 1:00 PM EDT Nutrition [address] [place] [address] Laura Parham LDN [address] [place] [address] Health Maintenance Due Date Last Done Comments [...] 12/25/2022 ABDOMINAL AORTIC ANEURYSM (AAA) SCREENING 2024 COVID-19 VACCINE ( season) 2025 10/23/2023, 08/14/2022, 07/11/2021, Additional history exists BLOOD PRESSURE 10/14/2025 04/13/2025 HEMOGLOBIN A1C 10/14/2025 04/13/2025, 09/04, 04/02/2024, Additional history exists SMOKING Hx and SMOKELESS TOBACCO SCREENING 07/20/2026 07/20/2025 Adult Td,Tdap Booster 06/20/2031 06/20/2021, 013 ZOSTER VACCINES Completed 03/01/2023, 12/28/2022 PNEUMOCOCCAL VACCINES (50+ years) Completed 01/13/2025 INFLUENZA VACCINE Completed 07/07/2025, , 07/03/2023, Additional history exists HEPATITIS A VACCINES Aged Out No long er eligible based on patient's age to complete this topic HIB VACCINES Aged Out No longer eligi ble based on patient's age to complete this topic IPV VACCINES Aged Out No longer eligi ble [...] Hemoglobin A1c 7.3(A) 4.2 - 5.6 % [facility] Other 04/13/2025 2:26 PM EDT us Kristy Mcbride MD LAB POCT ENTER/EDIT ORDERABLES Final Result [address] [address], [facility] * (ABNORMAL) Basic metabolic panel (12/25/2022 2:05 PM EDT) SODIUM 138 133 - 146 mmol/L [facility] CHLORIDE 102 96 - 108 mmol/L [facility] POTASSIUM 5.2(H) 3.3 - 5.1 mmol/L [facility] CO2 28 21 - 35 mmol/L [facility] BUN 29(H) 6 - 19 mg/dL [facility] CREATININE 1.50 0.5 - 1.5 mg/dL [facility] GLUCOSE 231(H) 70 - 99 mg/dL [facility] CALCIUM 9.2 8.4 - 10.3 mg/dL [facility] EGFR 52(L) >59 mL/min/1.7 3m2 [facility] Comment:Estimated glomerular filtration rate calculated using the CKD-EPI refit equation. ANION GAP 13 10 - 20 mmol/L [facility] Blood 12/25/2022 2:05 PM EDT 12/25/2022 2:08 PM EDT us Rhea Martinez MD LAB BLOOD BKR ORDERABLES Madelyn l Result [address] [address] from Last 3 Months or Most Recently Relevant to Health Maintenance Insurance MEDICARE PART A & B [facility] & [facility] MEDICARE PART A & B [facility] MEDICARE PART A & B [facility] MEDICARE PART A & B [id number] [place] [address] [employer] MEDICARE PART A & B [facility] MEDICARE PART A & [address] [place], [place] [id number] MEDICARE PART A & B [facility] MEDICARE PART A & B [facility] Care Teams Machinery Mechanic Relationship Specialty Start Date End Date Rhea Martinez MD [address] [place] [phone] PCP - General Internal Medicine 07/04/17 Rhea Martinez MD [address] [place] [phone] Historical LMR Provider 06/18/17 Kristy Mcbride MD [address] [facility], 1st [place] [address] Historical LMR Provider 06/18/17 Additional Source Comments The information contained in this document represents components of the legal health record. It is not the complete legal health record.[facility]
== END 2025-07-23 14:52 | disposition home or self-care (01) ==
LOC: HO.HMGCX 14:51
PROVIDERS: PCP Internal Medicine; Visit Provider Nurse Practitioner Family
DX: N20.0 Calculus of kidney (principal); N28.1 Cyst of kidney, acquired
CPT/HCPCS: 76775

== ENCOUNTER → 2025-07-23 14:59 | Outpatient (BNV) | payer MEDICARE, MEDICAID, SELFPAY | PROVIDERS: PCP Internal Medicine; Visit Provider Radiology Diagnostic Radiology | DX: N20.0 Calculus of kidney (principal); N28.1 Cyst of kidney, acquired | CPT/HCPCS: 76775 ==

== ENCOUNTER 2025-08-06 06:31 | Outpatient (REF) | payer MEDICARE, MEDICAID, SELFPAY ==
--- OUTSIDE RECORDS SUMMARY | 2025-08-06 06:33 | XMS_ITS | Encounter Summary ---
Author Organization [facility] [place], Address [address] [place] [address] Phone Care Team Providers Care Machine Assembler Name Role Phone Rhea Martinez MD Primary Care Provider [phone] Encounter Details Date Type Department Care Team (Late st Contact Info) Description 07/06/2022 Documentation Only [facility] [place], [address] [place] [address] Rico Lamb MD [address] [place] [address] [place] [address] Social History Tobacco Use Types [...] Visit [facility] [address] [place] [address] Rico Lamb MD [address] [place] [address] [place] [address] documented as of this encounter Visit Diagnoses Not on filedocumented in this encounter Care Teams Machine Assembler Relationship Specialty Start Date End Date Rhea Martinez MD [facility] [place] [address] [place] PCP - General 07/08/19 documented as of this encounter
--- OUTSIDE RECORDS SUMMARY | 2025-08-06 06:33 | XMS_ITS | Encounter Summary ---
Author Organization [facility] [place], Address [address] [place] [address] Phone Care Team Providers Care Nuclear Technician Name Role Phone Rhea Martinez MD Primary Care Provider [phone] Encounter Details Date Type Department Care Team (Late st Contact Info) Description 08/11/2024 Documentation Only [facility] [address] [place] [address] Margareth Garcia [address] [place] [address] Social History Tobacco Use Types [...] Visit [facility] [address] [place] [address] Rico Lamb MD [address] [facility] [place] [address] documented as of this encounter Visit Diagnoses Not on filedocumented in this encounter Care Teams Nuclear Technician Relationship Specialty Start Date End Date Rhea Martinez MD [facility] [place] [address] [place] PCP - General 07/08/19 documented as of this encounter
--- OUTSIDE RECORDS SUMMARY | 2025-08-06 06:33 | XMS_ITS | Clinical Summary ---
Author Organization [facility], Address [address] [place] [address] [place] [address] Phone Care Team Providers Care Batch Freezer Operator Name Role Phone Rhea Martinez MD Primary Care Provider [phone] Allergies Active Allergy Reactions Criticality Noted Date [...] Visit [facility] [place], [address] [place] [phone] Rico Lamb MD [address] [place] [address] [place] [address] Health Maintenance Due Date Last [...] PM EDT) Hemoglobin A1C 7.4(H) (4.0-5.6) % [facility] Comment: MONITORING: In known diabetic patients, hemoglobin A1c targets should be discussed with health care provider. DIAGNOSTIC USE: The [place] Diabetes Association (ADA) and the World Health [...] Supplement 1 Testing performed or reported by [facility], a Service of [facility], [address] [place] [address] Curtis Marks MD, [facility]# [id number] Blood specimen (specimen) Venous blood / Unknown 07/05/2023 12:15 PM EDT 07/05/2023 12:26 PM EDT us Rico Lamb MD LAB BLOOD ORDERABLES Final Res ult [facility] from Last 3 Months or Most Recently Relevant to Health Maintenance Insurance Medicare Medicaid [place] Care Teams Batch Freezer Operator Relationship Specialty Start Date End Date Rhea Martinez MD [facility] [address] [place] PCP - General 07/08/19
--- OUTSIDE RECORDS SUMMARY | 2025-08-06 06:33 | XMS_ITS | Clinical Summary ---
Author Organization [employer] Address [address] [facility] 7t [place] [address] Care Team Providers Care Ore Roaster Name Role Phone Unavailable Primary Care Provider [...] 60 years or older (1 - Risk 50-74 years 1-dose series) 2009 Dental X-Ray: Bitewings 12/21/2024 12/21/2023 Tobacco Screening 01/08/2025 01/09/2024 COVID-19 Vaccine ( season) 2025 10/23/2023, 08/14/2022, 07/11/2021, Additional [...] Payer (Ef fective 2022-Present) Name:Simone Quintana Member ID:[id number] Relation to Subscriber:Self Name:Simone Quintana Subscriber ID:[id number] Payer ID:STATE Group ID:Not on file Type:Medicare Address: [facility] [address] [address] [place] ST[place] AD[place]
--- OUTSIDE RECORDS SUMMARY | 2025-08-06 06:33 | XMS_ITS | Clinical Summary ---
Author Organization [facility] Address [address] [place] [address] Phone Care Team Providers Care Mucker Cofferdam Name Role Phone Rhea Martinez MD Unavailable [phone] Kristy Mcbride MD Unavailable [phone] Rhea Martinez MD Primary Care Provider [phone] Allergies Active Allergy Reactions Criticality Noted Date [...] length cannula, he is advised to contact [facility] to discuss his order since we [...] times and a slight reduction in the butane compressor operator hours to reduce risk of hypoglycemia [...] Team Description 07/20/2025 1:00 PM EST Nutrition [facility] [address] [place] [address] [place] [address] Kristy Mcbride MD Dawicki, Jessica Courtney, LDN 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); Insulin pump in place 07/13/2025 Telephone [facility] [address] [place] [phone] Marisa Monsalve [place] CLINICAL NOTES from Last [...] Description 10/12/2025 2:40 PM EST Office Visit [facility] [address] [place] [address] [place] [address] Kristy Mcbride MD [address] [place] [address] 01/18/2026 1:00 PM EDT Nutrition [address] [place] [address] Laura Parham LDN [address] [place] [address] Health Maintenance Due Date Last Done Comments [...] Hemoglobin A1c 7.3(A) 4.2 - 5.6 % [facility] Other 04/13/2025 2:26 PM EDT us Kristy Mcbride MD LAB POCT ENTER/EDIT ORDERABLES Final Result [address] [address], [facility] * (ABNORMAL) Basic metabolic panel (12/25/2022 2:05 PM EDT) SODIUM 138 133 - 146 mmol/L [facility] CHLORIDE 102 96 - 108 mmol/L [facility] POTASSIUM 5.2(H) 3.3 - 5.1 mmol/L [facility] CO2 28 21 - 35 mmol/L [facility] BUN 29(H) 6 - 19 mg/dL [facility] CREATININE 1.50 0.5 - 1.5 mg/dL [facility] GLUCOSE 231(H) 70 - 99 mg/dL [facility] CALCIUM 9.2 8.4 - 10.3 mg/dL [facility] EGFR 52(L) >59 mL/min/1.7 3m2 [facility] Comment:Estimated glomerular filtration rate calculated using the CKD-EPI refit equation. ANION GAP 13 10 - 20 mmol/L [facility] Blood 12/25/2022 2:05 PM EDT 12/25/2022 2:08 PM EDT us Rhea Martinez MD LAB BLOOD BKR ORDERABLES Madelyn l Result Performing Organization Address City/[facility]/ZIP Co de Phone Number [address] [address] from Last 3 Months or Most Recently Relevant to Health Maintenance Insurance MEDICARE PART A & B [facility] MEDIC[facility] PART A & B [facility] MEDIC[facility] PART A & B [facility] MEDIC[facility] PART A & B [facility] MEDICARE PART A & B [id number] [place] [address] [employer] MEDICARE PART A & B [facility] [employer] MEDICARE PART A & [place] [address] [place], [place] [id number] MEDICARE PART A & B [id number] [place] [address]B MEDICARE PART A & B [facility] Care Teams Mucker Cofferdam Relationship Specialty Start Date End Date Rhea Martinez MD [address] [place] [phone] PCP - General Internal Medicine 07/04/17 Rhea Martinez MD [address] [place] [phone] Historical LMR Provider 06/18/17 Kristy Mcbride MD [address] [facility] 1st [place] [address] Historical LMR Provider 06/18/17 Additional Source Comments The information contained in this document represents components of the legal health record. It is not the complete legal health record.[facility]
--- OUTSIDE RECORDS SUMMARY | 2025-08-06 06:33 | XMS_ITS | Patient Health Record ---
Author Organization [facility] Address [address] [place] [phone] Care Team Providers Care Leather Production Machine Operator Name Role Phone Rhea Martinez MD Primary Care Provider Dylan Ayala [phone] Reason For Referral No Information Medications Medication [...] Problem Screening for malignant neoplasm of colon (006440649) Encounter for screening for malignant neoplasm of colon (Z12.11) Active confirmed Problem Constipation (92493739) Constipation, unspecified constipation type (K59.00) Active confirmed Plan Of Treatment Future Test Test Name Order Date COLONOSCOPY 06/04/2020 Insurance Providers Payer Name Payer Address Payer Phone Subscriber Number Group Number Insured Name Patient Relationship to Insured Coverage Start Date Coverage End Date MEDICARE OF [place] [address] [place] [address] [id number] GAVIOTA MCKINNEY Self - patient is the insured MEDICAID OF [facility] [address] [place] [phone] [id number] GAVIOTA MCKINNEY Self - patient is the insured Medical (General) History Medical History History ICD Code Hyperlipidemia Hypertension IDDM--has an Insulin pump COPD Denies [place] nor CVA Sees a automotive project engineer for proteinuria Constipation Neg. screening colonoscopy in 01/2010 Decreased vision right eye Surgical History Surgery Date(Month/Year) cholecystectomy appendectomy orthopedic surgeries umbilical hernia repair Retina laser surgery both eyes
--- OUTSIDE RECORDS SUMMARY | 2025-08-06 06:33 | XMS_ITS | Encounter Summary ---
Author Organization [facility], Address [address] [place] [address] Phone Care Team Providers Care Engineering Project Designer Name Role Phone Rhea Martinez MD Primary Care Provider [phone] Encounter Details Date Type Department Care Team (Late st Contact Info) Description 10/27/2021 Documentation Only [facility], [address] [place] [address] Rico Lamb MD [address] [place] [address] [place] [address] Social History Tobacco Use Types [...] Visit [facility] [address] [place] [address] Rico Lamb MD [address] [place] [address] [place] [address] documented as of this encounter Visit Diagnoses Not on filedocumented in this encounter Care Teams Engineering Project Designer Relationship Specialty Start Date End Date Rhea Martinez MD [facility] [place] [address] [place] PCP - General 07/08/19 documented as of this encounter
--- OUTSIDE RECORDS SUMMARY | 2025-08-06 06:33 | XMS_ITS | Patient Health Record ---
[facility] Address [address] [place] [address] Care Team Providers Care Monogram And Letter Paster Name Role Phone Rhea Martinez Primary Care Provider Rachele Vaca Unavailable [phone] Vivienne Greene Unavailable [phone] Allergies Allergen (clinical drug ingredient) Drug/Non Drug [...] Polyneuropathy due to type 2 diabetes mellitus (349399448) Type 2 diabetes mellitus with diabetic polyneuropathy (E11.42) Active confirmed Problem Acquired hammer toe of right foot (0235988769898494 ) Other hammer toe(s) (acquired), right foot (M20.41) Active confirmed Response to treatment, Improvemen t Problem Acquired hammer toe of left foot (5854596493136968 ) Other hammer toe(s) (acquired), left foot (M20.42) Active confirmed Response to treatment, Improvemen t Vital Signs Blood pressure diastolic 80 mm Hg 05/22/2025 Height 5ft 3in in 05/22/2025 Blood pressure systolic 120 mm Hg 05/22/2025 Weight 112 lbs 05/22/2025 BMI 19.84 kg/m2 05/22/2025 Procedures Procedure Date Ordered Date Performed Result Body Sit e 29221-LNSQCZQ NAIL, 6 OR MORE 08/25/2024 N/A 54189-SVMG SKIN LESIONS, OVER 4 08/25/2024 N/A Encounters Encounter Location Date Provider Diagnosis [facility] [address] [place] [address] 08/25/2024 Vivienne Greene Type 2 diabetes mellitus with diabetic polyneuropathy E11.42 ; Tinea unguium B35.1 ; Other hammer toe(s) (acquired), right foot M20.41 and Other hammer toe(s) (acquired), left foot M20.[address] [address] 11/14/2024 Rachele Uribe Type 2 diabetes mellitus with diabetic polyneuropathy E11.42 and Tinea unguium B35.[address] [address] 02/13/2025 Rachele Uribe Type 2 diabetes mellitus with diabetic polyneuropathy E11.42 and Tinea unguium B35.[address] [address] 05/22/2025 Rachele Uribe Type 2 diabetes mellitus [...] Treatment Pending Test Test Name Order Date 69491-[id number] NAIL, 6 OR MORE 08/25/2024 43488-TWKV SKIN LESIONS, OVER 4 08/25/20 03258-AIEB SKIN LESIONS, OVER 4 09/20/19 80273-HGQC SKIN LESIONS, OVER 4 11/24/19 65374-MJSJ SKIN LESIONS, 2 TO 4 02/02/20 Next Appt Details Provider Name:Rachele Cannon Russ cannon, 09/08/2025 02:45:00 PM, [address] [place], [address], Insurance Providers Payer Name Payer Address Payer Phone Subscriber Number Group Number Insured Name Patient Relationship to Insured Coverage Start Date Coverage End Date [employer] [place] [employer]age [address] [place] [address] [id number] Simone Mir Self - patient is the insured Medical (General) History Medical History History ICD Code Arthritis Back,Hip,and Knee pain Broken bones CAD (Cholesterol) type I diabetes Gall bladder problems Heart disease High blood pressure Kidney disease Lung disease COPD Surgical History Surgery Date(Month/Year) appendectomy Gall bladder removal hernia surgery Orthopedic Surgery- hip, elbow, leg Hospitalization History Reason Date(Month/Year) [facility] issues 08/16/24
== END 2025-08-06 06:32 | disposition home or self-care (01) ==
LOC: CF 06:31
PROVIDERS: Visit Provider Internal Medicine
DX: M54.16 Radiculopathy, lumbar region (principal)
CPT/HCPCS: 99212

== ENCOUNTER 2025-08-06 11:22 | Outpatient (AMB) | payer MEDICARE, MEDICAID, SELFPAY ==
--- NOTE | 2025-08-11 16:08 | MHC.OFFVIS ---
Intake Visit Reasons: Right bursa PRP Allergies adalimumab (From Humira) Adverse Reaction (Verified 08/11/25 14:38) sleepy pregabalin (From Lyrica) Adverse Reaction (Verified 08/11/25 14:38) Dizzyness HPI HPI Right bursa PRP: Details: Patient presented today for a right gluteus medius tendon PRP injection. However on my history today he reports more of a radicular pain going down the right leg. He also had recently had a pelvic MRI which showed significant spondylolisthesis at L4-5 with a disc herniation abutting the right L4 exiting nerve. Subsequently an MRI of the lumbar spine was ordered. This MRI has not taken place yet. He had already paid for his injection but in light of these new findings in his pain pattern on presentation today, we decided to defer his PRP injection to the gluteus medius tendon. We will wait for the results from the lumbar spine MRI and then potentially consider a right L4 transforaminal epidural steroid injection for both diagnostic and therapeutic purposes. - Appears afebrile. - Alert and oriented. - Mood and affect appropriate. - Follows and participates in conversation appropriately. - Respiratory effort is unlabored. - Straight leg raise is positive on the right side. Range of motion of the right leg is painful. PFS Medical History Urinary frequency COPD exacerbation Bloating Hypoglycemia Chronic constipation Tinea pedis, left Hx of fracture of femur Eczema Cholelithiasis Carpal tunnel syndrome Ankle fracture Diabetes mellitus type 1 Chronic kidney disease (CKD) stage G2/A3, mildly decreased glomerular filtration rate (GFR) between 60-89 mL/min/1.73 square meter and albuminuria creatinine ratio greater than 300 mg/g Hypercholesterolemia Diabetic neuropathy COPD (chronic obstructive pulmonary disease) Coronary artery disease Hypertension Surgical History Hx of colonoscopy Hx of eye surgery Hx of appendectomy H/O umbilical hernia repair History of cholecystectomy History of elbow surgery History of carpal tunnel release Family History Father Hypertension Stroke CVD (cerebrovascular disease) Mother Hypertension CVD (cerebrovascular disease) Diabetes Sister HX: breast cancer Paternal Grandfather Colon cancer Social History Housing: House Alcohol intake: former Patient Tobacco Use Status: Former Tobacco user Tobacco use type: Cigarette Years Smoked: 2002 quit 08/12 e-Cigarette/Vaping Use: Never Used Second Hand Smoke Exposure: No Substance Use Type: Marijuana service: No Current occupational status: disabled Cognitive needs: No Hearing needs: No Vision needs: Yes Assessment & Plan Assessment & Plan (1) Lumbar radiculopathy: Code(s): M54.16 - Radiculopathy, lumbar region Category: Medical Plan Right leg pain with previous diagnosis of right gluteus medius tendon however, his pain pattern, lack of improvement in response to GM tendon interventions and incidental findings of the pelvis MRI, a diagnosis of a lumbar radiculopathy appears to be more likely at this point. We will await the results of the scheduled lumbar spine MRI and then follow-up to assess his candidacy for a right L4 transforaminal injection as a potential option for his right lower extremity symptoms. Coding Level of Care Code Est Pt Level 3 (81217) Diagnoses Lumbar radiculopathy M54.16
== END 2025-08-06 11:23 | disposition home or self-care (01) ==
LOC: HO.PMCPRC 11:22
PROVIDERS: Visit Provider Internal Medicine
DX: M54.16 Radiculopathy, lumbar region (principal)
CPT/HCPCS: 99213

== ENCOUNTER 2025-08-09 15:47 | Outpatient (REF) | payer MEDICARE, MEDICAID, SELFPAY ==
--- NOTE | ~2025-08-09 | MR_ITS ---
EXAMINATION: MR LUMBAR SPINE WITHOUT CONTRAST CLINICAL INFORMATION: M 51.36. COMPARISON: Correlated to CT abdomen pelvis dated July 21, 2021. TECHNIQUE: MRI of the lumbar spine was obtained using routine sequences without contrast. FINDINGS: Last rib-bearing vertebra labeled T12. Sacralized vertebra labeled S1 likely Castellvi type I. Prominent left transverse process of sacralized vertebra labeled S1. Bone marrow STIR signal abnormality involving the vertebral bodies and posterior elements of L5 and sacralized vertebra labeled S1. Grade 1 anterolisthesis at L5-S1 secondary to degenerative spondylolysis pars interarticularis. Large syndesmophyte formation and marginal osteophyte formation in the anterior prevertebral compartment L5-S1. Bone marrow inhomogeneity throughout the axial skeleton. Multilevel marginal osteophyte formation and disc desiccation throughout the axial skeleton. Schmorl nodes in the endplates of T11-12, T12-L1. Conus medullaris ends at pedicle of L1 with normal signal. T12-L1: Broad-based disc bulging. Facet joint hypertrophy. No central spinal canal or neuroforamina stenosis. L1-2: Broad-based disc bulging. No central spinal canal or neuroforamina stenosis. L2-3: Broad-based disc bulging. Facet joint hypertrophy. No central spinal canal or neuroforamina stenosis. L3-4: Broad-based disc bulging. Facet joint hypertrophy. No central spinal canal or neuroforamina stenosis. L4-5: Broad-based disc bulging. Facet joint and ligamentum flavum hypertrophy. Reduced AP diameter of the thecal sac and neuroforamina. No compression upon neural elements. L5-S1: Sacralized vertebra. Grade 1 anterolisthesis. Facet joint and ligamentum flavum hypertrophy. Bilateral neuroforamina stenosis compressing the exiting nerve roots. Reduced AP diameter of the thecal sac and central spinal canal encroaching the neural elements. No prevertebral compartment hematoma, mass or fluid collection. Multiple, different sizes fluid signal characteristic lesions in the kidneys. MR/MR lumbar spine wo con IMPRESSION: Sacralized vertebra labeled S1, likely Castellvi type I sacralization. 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 Acute/subacute inflammatory changes anterior and posterior column L5-S1.. Electronically signed by: Crescencio Mckenzie MD 08/10/2025 06:58 AM [facility]
--- OUTSIDE RECORDS SUMMARY | 2025-08-09 15:53 | XMS_ITS | Encounter Summary ---
Author Organization [facility], Address [address] [place] [address] Phone Care Team Providers Care Apprenticeship Training Representative Name Role Phone Rhea Martinez MD Primary Care Provider [phone] Encounter Details Date Type Department Care Team (Late st Contact Info) Description 10/27/2021 Documentation Only [facility], [address] [place] [address] Rico Lamb MD [address] [place] [address] [place] [address] Social History Tobacco Use Types [...] Visit [facility] [address] [place] [address] Rico Lamb MD [address] [place] [address] [place] [address] documented as of this encounter Visit Diagnoses Not on filedocumented in this encounter Care Teams Apprenticeship Training Representative Relationship Specialty Start Date End Date Rhea Martinez MD [facility] [place] [address] [place] PCP - General 07/08/19 documented as of this encounter
--- OUTSIDE RECORDS SUMMARY | 2025-08-09 15:53 | XMS_ITS | Encounter Summary ---
Author Organization [facility], Address [address] [place] [address] Phone Care Team Providers Care Electrical Instrument Repairer Name Role Phone Rhea Martinez MD Primary Care Provider [phone] Encounter Details Date Type Department Care Team (Late st Contact Info) Description 08/11/2024 Documentation Only [facility] [address] [place] [address] Margareth Garcia [address] [place] [address] Social History Tobacco Use Types [...] Visit [facility] [address] [place] [address] Rico Lamb MD [address] [place] [address] documented as of this encounter Visit Diagnoses Not on filedocumented in this encounter Care Teams Electrical Instrument Repairer Relationship Specialty Start Date End Date Rhea Martinez MD [facility] [place] [address] [place] PCP - General 07/08/19 documented as of this encounter
--- OUTSIDE RECORDS SUMMARY | 2025-08-09 15:53 | XMS_ITS | Clinical Summary ---
Author Organization [facility] Address [address] [place] [address] Phone Care Team Providers Care Design Project Manager Name Role Phone Rhea Martinez MD Unavailable [phone] Kristy Mcbride MD Unavailable [phone] Rhea Martinez MD Primary Care Provider [phone] Allergies Active Allergy Reactions Criticality Noted Date [...] length cannula, he is advised to contact [facility] to discuss his order since we [...] times and a slight reduction in the perennial house manager hours to reduce risk of hypoglycemia at [...] Team Description 07/20/2025 1:00 PM EST Nutrition [facility] [address] [place] [address] [place] [address] Kristy Mcbride MD Dawicki, Jessica Courtney, LDN 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); Insulin pump in place 07/13/2025 Telephone [facility] [address] [place] [id number] Marisa Monsalve [place] CLINICAL NOTES from Last [...] Description 10/12/2025 2:40 PM EST Office Visit [facility] [address] [place] [address] [place] [address] Kristy Mcbride MD [address] [place] [address] 01/18/2026 1:00 PM EDT Nutrition [address] [place] [address] Laura Parham LDN [address] [place] [address] Health Maintenance Due Date Last Done Comments [...] Hemoglobin A1c 7.3(A) 4.2 - 5.6 % [facility] Other 04/13/2025 2:26 PM EDT us Kristy Mcbride MD LAB POCT ENTER/EDIT ORDERABLES Final Result [address] [address], [place] * (ABNORMAL) Basic metabolic panel (12/25/2022 2:05 PM EDT) SODIUM 138 133 - 146 mmol/L [facility] CHLORIDE 102 96 - 108 mmol/L [facility] POTASSIUM 5.2(H) 3.3 - 5.1 mmol/L [facility] CO2 28 21 - 35 mmol/L [facility] BUN 29(H) 6 - 19 mg/dL [facility] CREATININE 1.50 0.5 - 1.5 mg/dL [facility] GLUCOSE 231(H) 70 - 99 mg/dL [facility] CALCIUM 9.2 8.4 - 10.3 mg/dL [facility] EGFR 52(L) >59 mL/min/1.7 3m2 [facility] Comment:Estimated glomerular filtration rate calculated using the CKD-EPI refit equation. ANION GAP 13 10 - 20 mmol/L [facility] Blood 12/25/2022 2:05 PM EDT 12/25/2022 2:08 PM EDT us Rhea Martinez MD LAB BLOOD BKR ORDERABLES Madelyn l Result Performing Organization Address City/[facility]/ZIP Co de Phone Number [address] [address] from Last 3 Months or Most Recently Relevant to Health Maintenance Insurance MEDICARE PART A & B [facility] & B [facility] PART A & B [facility] MEDIC[facility] PART A & B [facility] MED[facility]ARE PART A & B [id number] [place] [address] [employer] MEDICARE PART A & B [facility] [employer] MEDICARE PART A & [place] [address] [place] [id number] MEDICARE PART A & B [id number] [place] [id number] MEDICARE PART A & B [facility] Care Teams Design Project Manager Relationship Specialty Start Date End Date Rhea Martinez MD [address] [place] [phone] PCP - General Internal Medicine 07/04/17 Rhea Martinez MD [address] [place] [address] Historical LMR Provider 06/18/17 Kristy Mcbride MD [address] [facility], 1st [place] [address] Historical LMR Provider 06/18/17 Additional Source Comments The information contained in this document represents components of the legal health record. It is not the complete legal health record.[facility]
--- OUTSIDE RECORDS SUMMARY | 2025-08-09 15:53 | XMS_ITS | Clinical Summary ---
Author Organization [facility], Address [address] [place] [address] [place] [address] Phone Care Team Providers Care Shipping Agent Name Role Phone Rhea Martinez MD Primary Care Provider [phone] Allergies Active Allergy Reactions Criticality Noted Date [...] Visit [facility], [address] [address] Rico Lamb MD [address] [place] [address] [place] [address] Health Maintenance Due Date Last [...] PM EDT) Hemoglobin A1C 7.4(H) (4.0-5.6) % [facility] Comment: MONITORING: In known diabetic patients, hemoglobin A1c targets should be discussed with health care provider. DIAGNOSTIC USE: The [place] Diabetes Association (ADA) and the World Health [...] Supplement 1 Testing performed or reported by [facility], a Service of [facility], [address] [place] [address] Curtis Marks MD, Restaurant Crew [facility]# [id number] Blood specimen (specimen) Venous blood / Unknown 07/05/2023 12:15 PM EDT 07/05/2023 12:26 PM EDT us Rico Lamb MD LAB BLOOD ORDERABLES Final Res ult [facility] from Last 3 Months or Most Recently Relevant to Health Maintenance Insurance Medicare Medicaid [place] Care Teams Shipping Agent Relationship Specialty Start Date End Date Rhea Martinez MD [facility] [address] [place] PCP - General 07/08/19
--- OUTSIDE RECORDS SUMMARY | 2025-08-09 15:53 | XMS_ITS | Encounter Summary ---
Author Organization [facility], Address [address] [place] [address] Phone Care Team Providers Care Battery Service Technician Name Role Phone Rhea Martinez MD Primary Care Provider [phone] Encounter Details Date Type Department Care Team (Late st Contact Info) Description 07/06/2022 Documentation Only [facility], [address] [place] [address] Rico Lamb MD [address] [place] [address] [place] [address] Social History Tobacco Use Types [...] Visit [facility] [address] [place] [address] Rico Lamb MD [address] [place] [address] [place] [address] documented as of this encounter Visit Diagnoses Not on filedocumented in this encounter Care Teams Battery Service Technician Relationship Specialty Start Date End Date Rhea Martinez MD [facility] [place] [address] [place] PCP - General 07/08/19 documented as of this encounter
--- OUTSIDE RECORDS SUMMARY | 2025-08-09 15:53 | XMS_ITS | Clinical Summary ---
Author Organization [employer] Address [address] [place] [address] Care Team Providers Care Drive Away Driver Name Role Phone Unavailable Primary Care Provider [...] Payer (Ef fective 2022-Present) Name:Simone Quintana Member ID:[id number] Relation to Subscriber:Self Name:Simone Quintana Subscriber ID:[id number] Payer ID:STATE Group ID:Not on file Type:Medicare Address: [facility] [address] [address] [place] AD[place]
== END 2025-08-09 15:48 | disposition home or self-care (01) ==
LOC: HO.MRI 15:47
PROVIDERS: Visit Provider Internal Medicine
DX: M51.360 Other intervertebral disc degeneration, lumbar region with discogenic back pain only (principal)
CPT/HCPCS: 72148

== ENCOUNTER → 2025-08-09 15:56 | Outpatient (BNV) | payer MEDICARE, MEDICAID, SELFPAY | PROVIDERS: Visit Provider Radiology Diagnostic Radiology | DX: M51.369 Other intervertebral disc degeneration, lumbar region without mention of lumbar back pain or lower extremity pain (principal); M99.63 Osseous and subluxation stenosis of intervertebral foramina of lumbar region; M47.816 Spondylosis without myelopathy or radiculopathy, lumbar region | CPT/HCPCS: 72148 ==

== ENCOUNTER 2025-08-11 09:59 | Outpatient (REF) | payer MEDICARE, MEDICAID, SELFPAY ==
--- OUTSIDE RECORDS SUMMARY | 2025-08-11 20:59 | XMS_ITS | Clinical Summary ---
Author Organization [facility] Address [address] [place] [address] Phone Care Team Providers Care Elderly Caregiver Name Role Phone Rhea Martinez MD Unavailable [phone] Kristy Mcbride MD Unavailable [phone] Rhea Martinez MD Primary Care Provider [phone] Allergies Active Allergy Reactions Criticality Noted Date [...] length cannula, he is advised to contact 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); Insulin pump in place 07/13/2025 Telephone [facility] [address] [place] [phone] Marisa Monsalve MA CLINICAL NOTES from Last [...] Description 10/12/2025 2:40 PM EST Office Visit [facility] [address] [place] [address] [place] [address] Kristy Mcbride MD [address] [place] [address] 01/18/2026 1:00 PM EDT Nutrition [address] [place] [address] Laura Parham LDN [address] [place] [address] Health Maintenance Due Date Last Done Comments CARBAMAZEPINE (TEGRETOL) LEVEL 1959 DEPRESSION SCREENING 1971 HEPATITIS C SCREENING 1977 COLOGUARD 2004 COLONOSCOPY 2004 COLORECTAL CANCER [...] Hemoglobin A1c 7.3(A) 4.2 - 5.6 % [facility] Player[employer] [facility] Other 04/13/2025 2:26 PM EDT us Kristy Mcbride MD LAB POCT ENTER/EDIT ORDERABLES Final Result Performing Organization Address City/[facility]/ZIP Co de Phone Number [address] [address], [facility] * (ABNORMAL) Basic metabolic panel (12/25/2022 2:05 PM EDT) SODIUM 138 133 - 146 mmol/L [facility] CHLORIDE 102 96 - 108 mmol/L [facility] POTASSIUM 5.2(H) 3.3 - 5.1 mmol/L [facility] CO2 28 21 - 35 mmol/L [facility] BUN 29(H) 6 - 19 mg/dL [facility] CREATININE 1.50 0.5 - 1.5 mg/dL [facility] GLUCOSE 231(H) 70 - 99 mg/dL [facility] CALCIUM 9.2 8.4 - 10.3 mg/dL [facility] EGFR 52(L) >59 mL/min/1.7 3m2 [facility] Comment:Estimated glomerular filtration rate calculated using the CKD-EPI refit equation. ANION GAP 13 10 - 20 mmol/L [facility] Blood 12/25/2022 2:05 PM EDT 12/25/2022 2:08 PM EDT us Rhea Martinez MD LAB BLOOD BKR ORDERABLES Madelyn l Result Performing Organization Address City/[facility]/ZIP Co de Phone Number [address] [address] from Last 3 Months or Most Recently Relevant to Health Maintenance Insurance MEDICARE PART A & [facility] & [facility] A & [facility] & [facility] & [facility] MED[facility] PART A & B [id number] [place] [address] [employer] MEDICARE PART A & B [facility] MED[facility] PART A & B [facility] Care Teams Elderly Caregiver Relationship Specialty Start Date End Date Rhea Martinez MD [address] [place] [phone] PCP - General Internal Medicine 07/04/17 Rhea Martinez MD [address] [place] [phone] Historical LMR Provider 06/18/17 Kristy Mcbride MD [address] [place] [address], [address] [place] [address] Historical LMR Provider 06/18/17 Additional Source Comments The information contained in this document represents components of the legal health record. It is not the complete legal health record.[facility]
== END 2025-08-11 10:00 | disposition home or self-care (01) ==
LOC: HO.LAB 09:59
PROVIDERS: Nurse Practitioner Family
DX: N40.1 Benign prostatic hyperplasia with lower urinary tract symptoms (principal); R39.12 Poor urinary stream; N28.1 Cyst of kidney, acquired; N20.0 Calculus of kidney; I10 Essential (primary) hypertension; E78.00 Pure hypercholesterolemia, unspecified; E10.42 Type 1 diabetes mellitus with diabetic polyneuropathy; M25.551 Pain in right hip; M51.360 Other intervertebral disc degeneration, lumbar region with discogenic back pain only
CPT/HCPCS: 51798; 81003; 88112; 99212

== ENCOUNTER 2025-08-11 09:59 | Outpatient (AMB) | payer MEDICARE, MEDICAID, SELFPAY ==
--- NOTE | 2025-08-11 10:01 | MHC.PC.OV ---
Vital Signs 08/11/25 10:05 08/11/25 10:39 Height 5 ft 2 in Weight 112 lb BMI 20.5 BP 140/74 H 120/74 Blood Pressure Location Lt brachial Lt brachial Position Sitting Sitting Respiration 18 Pulse 70 Pulse Source Pulse Oximeter Temp 98.0 F Temp Source Temporal Artery Scan Pulse Oximetry (%) 97 Intake Visit Reasons: Diabetic neuropathy, LBP, DM Bariatric Nurse Required: No Accompanied by: Self / Same As Patient Allergies adalimumab (From Humira) Adverse Reaction (Verified 08/11/25 10:20) sleepy pregabalin (From Lyrica) Adverse Reaction (Verified 08/11/25 10:20) Dizzyness Medication List - Last Reconciled 08/11/25 by Yue Vitale PA-C albuterol sulfate 90 mcg/actuation (Ventolin HFA) 2 puffs PO Q4-6H PRN aspirin (Adult Aspirin Regimen) 81 mg PO DAILY PRN bethanechol chloride 50 mg PO BID 90 days carbamazepine ER 200 mg PO BEDTIME carvedilol 25 mg PO BID finasteride 5 mg PO DAILY 90 days fluticasone furoate-vilanterol 200-25 mcg/dose (Breo Ellipta) 1 inh inhalation DAILY gabapentin 200 mg (2 x 100 mg) PO DAILY PRN glucagon 3 mg/actuation (Baqsimi) mg intranasal hydrocodone-acetaminophen 5-325 mg 1 tab PO BID PRN 30 days insulin aspart U-100 70 units subcut DAILY ipratropium-albuterol 0.5 mg-3 mg(2.5 mg base)/3 mL 3 mL inhalation Q4H PRN 30 days lactulose 20 grams (30 mL) PO DAILY PRN lisinopril 40 mg PO DAILY mirabegron ER (Myrbetriq) 25 mg PO DAILY 90 days potassium citrate ER 10 mEq PO ONCE rosuvastatin 40 mg PO DAILY sennosides-docusate sodium 8.6-50 mg (Senna Plus) 2 tab-caps (2 x 8.6-50 mg) PO BEDTIME sildenafil (Viagra) 100 mg PO DAILY PRN simethicone (Gas Relief (simethicone)) 125 mg PO BEDTIME PRN Spiriva with HandiHaler (tiotropium bromide) 1 cap inhalation DAILY NS tamsulosin 0.4 mg PO DAILY 90 days Tobacco use date assessed: 04/23/25 Fall risk assessment: No Falls in past year Last assessed Fall Risk: 08/11/25 Dental Screening Dental Screen Date: 04/23/25 HPI Diabetic neuropathy, LBP, DM HPI Details 65 year old male with past medical history of hypertension, CAD, COPD, diabetes mellitus type I, hypercholesterolemia, CKD, BPH last seen 07/2024 coming in for follow up. In review of the notes, patient was seen by pain management 08/06/2025 for injection of the right bursa. Presenting for follow-up on multiple chronic conditions, including hypertension, diabetes, and significant back and hip pain, as well as to review recent MRI results. He reports being in a lot of pain, specifically in his back and hip. He recently saw pain management and was scheduled for a hip injection, but the provider noted the hip looked better and instead planned for a spinal injection on the . He takes hydrocodone at night for sleep and reports he will be running out soon. For his breathing, which he states is stable, his medications include Spiriva, Breo, and albuterol. The dosage of his Spiriva was recently increased. He has an upcoming appointment with urology later today for urinary concerns. [facility] Medical History Urinary frequency COPD exacerbation Bloating Hypoglycemia Chronic constipation Tinea pedis, left Hx of fracture of femur Eczema Cholelithiasis Carpal tunnel syndrome Ankle fracture Diabetes mellitus type 1 Chronic kidney disease (CKD) stage G2/A3, mildly decreased glomerular filtration rate (GFR) between 60-89 mL/min/1.73 square meter and albuminuria creatinine ratio greater than 300 mg/g Hypercholesterolemia Diabetic neuropathy COPD (chronic obstructive pulmonary disease) Coronary artery disease Hypertension Surgical History Hx of colonoscopy Hx of eye surgery Hx of appendectomy H/O umbilical hernia repair History of cholecystectomy History of elbow surgery History of carpal tunnel release Family History Father Hypertension Stroke CVD (cerebrovascular disease) Mother Hypertension CVD (cerebrovascular disease) Diabetes Sister HX: breast cancer Paternal Grandfather Colon cancer Social History Housing: House Alcohol intake: former Patient Tobacco Use Status: Former Tobacco user Tobacco use type: Cigarette Years Smoked: 2002 quit 08/12 e-Cigarette/Vaping Use: Never Used Second Hand Smoke Exposure: No Substance Use Type: Marijuana service: No Current occupational status: disabled Cognitive needs: No Hearing needs: No Vision needs: Yes Questionnaire Thrive Questionnaire Date Thrive assessed: 01/13/25 I am a: Patient What is your living situation today?: I have a steady place to live Within the past 12 months, did the food you bought not last and you didn't have the money to get more?: Never true Within the past 12 months, did you worry whether your food would run out before you got money to buy more?: Never true Do you have trouble paying for medicines?: No Do you have trouble getting transportation to medical appointments?: No Do you have trouble paying your heating and electricity bill?: No Do you have trouble taking care of your child, family member or friend?: No Do you have trouble with day-to-day activities such as bathing, preparing meals, shopping, managing finances, etc.?: No Are you currently unemployed and looking for a job?: Yes Are you interested in more education?: No Please select the resources that you would like help with: None Currently or been in a relationship where the following occur: No concerns reported THRIVE Score: 0 BARRY-7 AMB Questionnaire BARRY-7 Date BARRY - 7 assessed: 04/23/25 Source: Developed by Drs. Dylan Mendez, Arabella Griffin, Mick Valero and colleagues, with an educational teto from [employer]. Review of Systems Const Denies body aches, Denies chills, Denies fever(s), Denies headache(s) and Denies poor appetite Eyes Reports no additional complaints ENT Denies dizziness and Denies headache(s) Card Denies chest pain, Denies lightheadedness and Denies dyspnea Resp Denies dyspnea GI Denies abdominal pain, Denies nausea and Denies vomiting Reports no additional complaints Musc Reports no additional complaints and Denies abnormal gait Skin/Breast Reports system reviewed and no additional complaints, except as documented Neuro Denies abnormal gait, Denies dizziness and Denies headache(s) Psych Reports no additional complaints Physical exam (Primary Care) Vital Signs: Last Vital Signs Temp 98.0 F 08/11/25 10:05 Pulse 70 08/11/25 10:05 Resp 18 08/11/25 10:05 BP 120/74 08/11/25 10:39 Pulse Ox 97 08/11/25 10:05 BMI result Body Mass Index 20.5 Tobacco/Smoking Status: Tobacco use Status Tobacco use date assessed 04/23/25 08/11/25 10:06 Patient Tobacco Use Status Former Tobacco user 08/11/25 10:06 Tobacco use type Cigarette 08/11/25 10:06 e-Cigarette/Vaping Use Never Used 08/11/25 10:06 Thrive Assessment: Date of Thrive Assessment Date Thrive assessed 01/13/25 08/11/25 10:06 Currently or been in a relationship where the following occur: No concerns reported Const General: cooperative, healthy appearing, comfortable and no acute distress Orientation/consciousness: patient oriented x3 HENMT Head: Yes normocephalic Ears: hearing grossly normal bilaterally General nose exam: Normal external nose present Eyes General: appearance normal, both eyes and all related structures Conjunctivae: conjunctivae normal Neck Neck: Yes full ROM and Yes no lymphadenopathy Resp Effort & Inspection: normal respiratory effort Auscultation: clear to auscultation bilaterally, no crackles, no rales, no rhonchi and no wheezes Cardio Rate: regular rate Rhythm: regular rhythm Skin General skin exam: no rashes or lesions noted Neuro General: patient oriented x3 Gait exam (Neuro): Normal gait present Extrem General: Yes normal to inspection, Yes full ROM and No edema Psych Affect: normal affect Attitude: cooperative Insight: Good insight present (Psych) Judgement: Good judgement present (Psych) Coding Level of Care Code Est Pt Level 3 (19256) Diagnoses Essential hypertension I10 Hypertension type: essential hypertension Hypercholesterolemia E78.00 Type 1 diabetes mellitus with diabetic polyneuropathy E10.42 Diabetes mellitus complication detail: with polyneuropathy Diabetes mellitus complication status: with neurologic complications Benign prostatic hyperplasia with weak urinary stream N40.1; R39.12 Lower urinary tract symptom detail: weak urinary stream Lower urinary tract symptom presence: symptoms present Hip pain, right M25.551 Pulmonary emphysema, unspecified emphysema type J43.9 COPD type: emphysema Emphysema type: unspecified Lumbar degenerative disc disease M51.36 Assessment & Plan Assessment & Plan (1) Hypertension: Code(s): I10 - Essential (primary) hypertension Category: Medical Qualifiers: Hypertension type: essential hypertension Qualified Code(s): I10 - Essential (primary) hypertension Plan: Continue on current blood pressure medication. Avoid salt intake and encourage healthy diet and regular exercise. (2) Hypercholesterolemia: Code(s): E78.00 - Pure hypercholesterolemia, unspecified Category: Medical Plan: Avoid foods that are high in cholesterol such as red meat, fried foods, eggs and baked goods. Triglyceride goal of less than 150 and LDL goal of less than 70. (3) Diabetes mellitus type 1: Comment: Insulin Pump Dr. Rae Camargo Code(s): E10.9 - Type 1 diabetes mellitus without complications Category: Medical Qualifiers: Diabetes mellitus complication detail: with polyneuropathy Diabetes mellitus complication status: with neurologic complications Qualified Code(s): E10.42 - Type 1 diabetes mellitus with diabetic polyneuropathy Plan: Decrease the amount of carbohydrates such as pasta, bread, rice, and potatoes and limit the amount of sweets. Although fruits are generally healthy they should be eaten in moderation as they are still high in sugar. Last A1c 7.2% continue on current medication regimen at this time (4) BPH (benign prostatic hyperplasia): Code(s): N40.0 - Benign prostatic hyperplasia without lower urinary tract symptoms Category: Medical Qualifiers: Lower urinary tract symptom detail: weak urinary stream Lower urinary tract symptom presence: symptoms present Qualified Code(s): N40.1 - Benign prostatic hyperplasia with lower urinary tract symptoms; R39.12 - Poor urinary stream Plan: Patient will continue on finasteride and Myrbetriq at this time and has a appointment later today with Urology. (5) Hip pain, right: Comment: Chronic, progressively worsening with limiting function. I am concerned that he has muscular strain or tendon tear from gluteal muscles at the attachment of the greater trochanter contributing to his pain. He recently started physical therapy. We discussed importance of rehabilitation in trying to regain function. We discussed next steps in obtaining an MRI to evaluate for soft tissue pathology, which will aid future management of patient including interventions such as repair by orthopedic surgery of muscle or tendon if significant tear is noted on imaging. Code(s): M25.551 - Pain in right hip Category: Medical Plan: For hip pain continue to follow with Dr. Puente for pain management and continue on chronic pain medication. (6) COPD (chronic obstructive pulmonary disease): Comment: HE IS A KNOWN CASE OF SEVERE COPD, REMAINS STABLE, BUT DOES COMPLAIN OF ONGOING COUGH. AND MILD DYSPNEA ON WALKING. Code(s): J44.9 - Chronic obstructive pulmonary disease, unspecified Category: Medical Qualifiers: COPD type: emphysema Emphysema type: unspecified Qualified Code(s): J43.9 - Emphysema, unspecified Plan: Feels his breathing is well managed at this time. Continue on current inhalers (7) Lumbar degenerative disc disease: Comment: MR/MR lumbar spine wo con IMPRESSION: Sacralized vertebra labeled S1, likely Castellvi type I sacralization. 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 Acute/subacute inflammatory changes anterior and posterior column L5-S1.. Code(s): M51.36 - Other intervertebral disc degeneration, lumbar region Category: Medical Plan: MRI was reviewed with the patient today and all questions were answered. A referral to neurosurgery has been placed for surgical evaluation. The patient will follow up with his paint preparer, Dr. Puente, on the to discuss a potential spinal injection and neurosurgery consult. A refill for hydrocodone will be sent to his pharmacy. Plan This note was constructed using voice recognition software. While every effort has been made to ensure accuracy and machine presser, still areas may have been included sometimes these areas may affect the content or meeting of the given symptoms. Total time spent caring for the patient today was 20 minutes. This includes time spent before the visit reviewing the chart, time spent during the visit, and time spent after the visit and documentation. Patient was informed and verbally consented to the use of an ambient scribe for clinic note documentation during this visit. Medications: Changed From simethicone (Gas Relief (simethicone)) 125 mg PO BEDTIME PRN To simethicone (Gas Relief (simethicone)) 125 mg PO BEDTIME 90 tabs 0RF From hydrocodone-acetaminophen 5-325 mg pain med temporarily to help with pain 09/2024 1 tab PO BID 30 days PRN 60 tabs 0RF pain E10.42 - Type 1 diabetes mellitus with diabetic polyneuropathy To hydrocodone-acetaminophen 5-325 mg pain med temporarily to help with pain 09/2024; covering for Po 1 tab PO BID PRN 60 tabs 0RF pain 30 days E10.42 - Type 1 diabetes mellitus with diabetic polyneuropathy
[2025-08-11 10:05] VITALS: BP 140/74; PULSE 70; RESP 18; TEMP 36.7; O2SAT 97; BMI 20.5
[2025-08-11 10:39] VITALS: BP 120/74
== END 2025-08-11 10:45 | disposition home or self-care (01) ==
LOC: HO.HMCH 10:00
PROVIDERS: PCP Internal Medicine
DX: I10 Essential (primary) hypertension (principal); E10.42 Type 1 diabetes mellitus with diabetic polyneuropathy; J43.9 Emphysema, unspecified; E78.00 Pure hypercholesterolemia, unspecified; N40.1 Benign prostatic hyperplasia with lower urinary tract symptoms; R39.12 Poor urinary stream; M25.551 Pain in right hip; M51.369 Other intervertebral disc degeneration, lumbar region without mention of lumbar back pain or lower extremity pain

== ENCOUNTER 2025-08-11 14:30 | Outpatient (AMB) | payer MEDICARE, MEDICAID, SELFPAY ==
--- NOTE | 2025-08-11 14:35 | MHC.OFFVIS ---
Intake Visit Reasons: 6M/PVR/UA(SET)- r/s from waitlist Intake Note: Patient is present for 6M/UA/PVR Urology Medication:TAMSULOSIN,BETHANECHOL,FINASTERIDE,MYRABEGRON,SILDENAFIL,POTASSIUM Antibiotic Allergy:NONE Blood Thinner:ASPIRIN Last PVR:0ML'S Todays PVR:34ML'S [employer] Required: No Allergies adalimumab (From Humira) Adverse Reaction (Verified 08/11/25 14:38) sleepy pregabalin (From Lyrica) Adverse Reaction (Verified 08/11/25 14:38) Dizzyness HPI Comments Details: Simone is a very pleasant 65-year-old male patient of Dr. Martinez. He has a past medical history of carpal tunnel syndrome, chronic kidney disease, COPD, coronary artery disease, diabetes type 1, diabetic neuropathy, eczema, hypercholesteremia, and hypertension. He presents to the office today for follow-up of his incomplete bladder emptying, weak stream, erectile dysfunction, overactive bladder, and diabetic cystopathy. In discussion with the patient today he reports to be doing and feeling well urologically however has been experiencing more issues with his back. He reports he has recently had an MRI of his spine and recommendations are being made for a follow-up with spine surgeon here at [facility]. He reports compliance with bethanechol, finasteride, tamsulosin, and Myrbetriq as prescribed. He discusses he has not been utilizing his p.r.n. Viagra as he is not currently sexually active. In office urinalysis results reviewed with the patient today. PVR 34 mL. Renal ultrasound 07/28 noted bilateral kidneys are normal in echotexture. No hydronephrosis noted bilaterally. There are a few scattered subcentimeter less than 6 mm calculi on the right. Bilateral renal cysts are noted. Left kidney with hyper echoic foci possibly artifact per radiology report. He continues with good emptying with combination therapy. When asked he denies any bothersome urinary issues or concerns. He otherwise offers no other issues or concerns at this time. PSAs are as follows: 10/26 1.3, 02/24 1.4, 06/26 2.9, 01/25 1.2, 06/27 2.0 PREVIOUS OFFICE NOTE----- BPH with incomplete emptying progressive symptoms - urgency frequency with leakage tried tamsulosin 0.4 with minimal impact background of type 1 diabetes since 6 years old PSA 07/24 1.4, 10/26 1.3 symptoms at presentation - weakness of stream, incomplete emptying, hesitancy Cystoscopy - 03/23 small prostate with high residual Imaging - 09/24 CT scan 5 mm right stone Overactive bladder Diabetic cystopathy Initial symptoms include nocturia x3 Good response to Myrbetriq with decrease in nocturia to 1 time per night PFSH Medical History Urinary frequency COPD exacerbation Bloating Hypoglycemia Chronic constipation Tinea pedis, left Hx of fracture of femur Eczema Cholelithiasis Carpal tunnel syndrome Ankle fracture Diabetes mellitus type 1 Chronic kidney disease (CKD) stage G2/A3, mildly decreased glomerular filtration rate (GFR) between 60-89 mL/min/1.73 square meter and albuminuria creatinine ratio greater than 300 mg/g Hypercholesterolemia Diabetic neuropathy COPD (chronic obstructive pulmonary disease) Coronary artery disease Hypertension Surgical History Hx of colonoscopy Hx of eye surgery Hx of appendectomy H/O umbilical hernia repair History of cholecystectomy History of elbow surgery History of carpal tunnel release Family History Father Hypertension Stroke CVD (cerebrovascular disease) Mother Hypertension CVD (cerebrovascular disease) Diabetes Sister HX: breast cancer Paternal Grandfather Colon cancer Social History Housing: House Alcohol intake: former Patient Tobacco Use Status: Former Tobacco user Tobacco use type: Cigarette Years Smoked: 2002 quit 08/12 e-Cigarette/Vaping Use: Never Used Second Hand Smoke Exposure: No Substance Use Type: Marijuana service: No Current occupational status: disabled Cognitive needs: No Hearing needs: No Vision needs: Yes Review of Systems Const Reports as per HPI Eyes Reports no additional complaints ENT Reports no additional complaints Card Reports as per HPI Resp Reports as per HPI GI Reports no additional complaints Reports as per HPI Musc Reports as per HPI Neuro Reports no additional complaints Psych Reports no additional complaints Endo Reports as per HPI Office Procedures Post Void Residual Post Residual Void Post Void Residual (PVR): 34 52800-Eavx Void Residual by ultrasound Results AMB Urinalysis, Automated UA Leukoctes 0 Christine/uL Last Edit by JEB Gomez on 08/11/25 14:53 UA Nitrite Negative Last Edit by [facility]zano [facility] on 08/11/25 14:53 UA Urobilinogen 0.2 mg/dL Last Edit by Adeline Solorzano [facility] on 08/11/25 14:53 UA Protein 30 mg/dL Last Edit by Adeline Solorzano [facility] on 08/11/25 14:53 UA pH 6.0 Last Edit by Adeline Solorzano [facility] on 08/11/25 14:53 UA Blood 10 Stevan/uL Last Edit by Adeline Solorzano [facility] on 08/11/25 14:53 UA Specific Bear 1.020 Last Edit by Adeline Solorzano [facility] on 08/11/25 14:53 UA Ketone Negative Last Edit by Adeline Solorzano [facility] on 08/11/25 14:53 UA Bilirubin 0 mg/dL Last Edit by Adeline Solorzano [facility] on 08/11/25 14:53 UA Glucose 0 mg/dL Last Edit by Adeline Solorzano [facility] on 08/11/25 14:53 Results Reviewed Results Reviewed: Laboratory Last Values Urine pH (Auto) 6.0 08/11/25 14:52 Specific Bear (Auto) 1.020 08/11/25 14:52 Urine Protein (Auto) 30 mg/dL 08/11/25 14:52 Glucose (UA)(Auto) 0 mg/dL 08/11/25 14:52 Urine Ketones (Auto) Negative 08/11/25 14:52 Urine Blood (Auto) 10 Stevan/uL 08/11/25 14:52 Urine Nitrite (Auto) Negative 08/11/25 14:52 Urine Bilirubin (Auto) 0 mg/dL 08/11/25 14:52 Urine Urobilinogen (Auto) 0.2 mg/dL 08/11/25 14:52 Leukocyte Esterase (Auto) 0 Christine/uL 08/11/25 14:52 Assessment & Plan Assessment & Plan (1) BPH (benign prostatic hyperplasia): Code(s): N40.0 - Benign prostatic hyperplasia without lower urinary tract symptoms Category: Medical Qualifiers: Lower urinary tract symptom detail: weak urinary stream Lower urinary tract symptom presence: symptoms present Qualified Code(s): N40.1 - Benign prostatic hyperplasia with lower urinary tract symptoms; R39.12 - Poor urinary stream (2) Enlarged prostate: Code(s): N40.0 - Benign prostatic hyperplasia without lower urinary tract symptoms Category: Medical (3) Renal cyst: Code(s): N28.1 - Cyst of kidney, acquired Category: Medical (4) Renal calculi: Comment: 2020 Code(s): N20.0 - Calculus of kidney Category: Medical Plan In office urinalysis results with the patient today; as noted above. PVR 34 mL. Continue bethanechol, finasteride, Myrbetriq, and Flomax as prescribed. Most recent renal imaging results with the patient today; as noted above. Most recent PSA results results were reviewed today; as noted above. He currently denies any bothersome urinary issues or concerns. He reports be happy with current voiding parameters. All questions were answered. Will continue with surveillance monitoring of renal cysts as well as nephrolithiasis. Discussed, educated, and stressed the importance of managing diabetes for improvement in lower urinary tract symptoms, erectile dysfunction, and overall health and well-being. Discussed, educated, and stressed the importance of limiting/quitting nicotine dependence for overall health and well-being. Will obtain renal ultrasound and PSA in 6 months Follow-up in 6 months with imaging, PSA, and PVR or sooner with any issues, concerns, and or questions. Orders: Orders Urine Cytology 08/11/25 R31.29 - Other microscopic hematuria Prostate Specific Antigen 6 Months N40.0 - Benign prostatic hyperplasia without lower urinary tract symptoms, N40.1 - Benign prostatic hyperplasia with lower urinary tract symptoms, R39.12 - Poor urinary stream AMB Urinalysis Automated 08/11/25 Z13.9 - Encounter for screening, unspecified US renal BI 6 Months N20.0 - Calculus of kidney, N28.1 - Cyst of kidney, acquired Patient Instructions: The patient had an opportunity to ask questions regarding the treatment plan. All questions were answered. Physical exam, labs, and imaging were discussed and reviewed in detail. As well as risks, benefits, and discussion of treatment choices. No major barriers to understanding were identified. The patient expressed understanding and agreement with the above treatment plan. The patient was made aware they should contact our office by phone for worsening of their current condition, the appearance of new symptoms, or with any questions or concerns. Compliance is encouraged with any medications and follow up testing that is ordered. It is a privilege to be allowed the opportunity to participate in? your urological care.? Again, if you have any questions or concerns If you have any questions or concerns please do not hesitate to contact me. The office is [phone]. This note is constructed using voice recognition software. While every effort has been made to ensure accuracy director sales support errors may have been included. Yours sincerely, [place] Toussaint Coding Level of Care Code Est Pt Level 3 (57570) Add On Problem Visit Only Diagnoses Benign prostatic hyperplasia with weak urinary stream N40.1; R39.12 Lower urinary tract symptom detail: weak urinary stream Lower urinary tract symptom presence: symptoms present Enlarged prostate N40.0 Renal cyst N28.1 Renal calculi N20.0 CPT Codes Post Residual Void - PVR CPT Code: 85422-Hjec Void Residual by ultrasound ([id number])
--- OUTSIDE RECORDS SUMMARY | 2025-08-11 20:27 | XMS_ITS | Clinical Summary ---
Author Organization [employer] Address [address] [place] [address] Care Team Providers Care Rn Transitional Name Role Phone Unavailable Primary Care Provider [...] Payer (Ef fective 2022-Present) Name:Simone Quintana Member ID:[id number] Relation to Subscriber:Self Name:Simone Quintana Subscriber ID:[id number] Payer ID:STATE Group ID:Not on file Type:Medicare Address: [facility] [address] [address] [place]
--- OUTSIDE RECORDS SUMMARY | 2025-08-11 20:27 | XMS_ITS | Encounter Summary ---
Author Organization [facility], Address [address] [place] [address] Phone Care Team Providers Care Clinical Data Research Name Role Phone Rhea Martinez MD Primary Care Provider [phone] Encounter Details Date Type Department Care Team (Late st Contact Info) Description 07/06/2022 Documentation Only [facility], [address] [place] [address] Rico Lamb MD [address] [place] [address] [place] [address] Social History Tobacco Use Types [...] Visit [facility] [address] [place] [address] Rico Lamb MD [address] [place] [address] [place] [address] documented as of this encounter Visit Diagnoses Not on filedocumented in this encounter Care Teams Clinical Data Research Relationship Specialty Start Date End Date Rhea Martinez MD [facility] [place] [address] [place] PCP - General 07/08/19 documented as of this encounter
--- OUTSIDE RECORDS SUMMARY | 2025-08-11 20:27 | XMS_ITS | Patient Health Record ---
Author Organization [facility] Address [address] [place] [address] Care Team Providers Care Behavioral Scientist Name Role Phone Rhea Martinez Primary Care Provider Rachele Vaca Unavailable [phone] Vivienne Greene Unavailable [phone] Allergies Allergen (clinical drug ingredient) Drug/Non Drug [...] Polyneuropathy due to type 2 diabetes mellitus (514631779) Type 2 diabetes mellitus with diabetic polyneuropathy (E11.42) Active confirmed Problem Acquired hammer toe of right foot (7161369484547526 ) Other hammer toe(s) (acquired), right foot (M20.41) Active confirmed Response to treatment, Improvemen t Problem Acquired hammer toe of left foot (3839835621915277 ) Other hammer toe(s) (acquired), left foot (M20.42) Active confirmed Response to treatment, Improvemen t Vital Signs Blood pressure diastolic 80 mm Hg 05/22/2025 Height 5ft 3in in 05/22/2025 Blood pressure systolic 120 mm Hg 05/22/2025 Weight 112 lbs 05/22/2025 BMI 19.84 kg/m2 05/22/2025 Procedures Procedure Date Ordered Date Performed Result Body Sit e 44179-KJAETOE NAIL, 6 OR MORE 08/25/2024 N/A 05907-TLWX SKIN LESIONS, OVER 4 08/25/2024 N/A Encounters Encounter Location Date Provider Diagnosis [facility] [place] [address] [place] [address] 08/25/2024 Vivienne Greene Type 2 diabetes mellitus with diabetic polyneuropathy E11.42 ; Tinea unguium B35.1 ; Other hammer toe(s) (acquired), right foot M20.41 and Other hammer toe(s) (acquired), left foot M20.[address] [address] 11/14/2024 Rachele Uribe Type 2 diabetes mellitus with diabetic polyneuropathy E11.42 and Tinea unguium B35.[address] [address] 02/13/2025 Rachele Uribe Type 2 diabetes mellitus with diabetic polyneuropathy E11.42 and Tinea unguium B35.[address] [address] 05/22/2025 Rachele Uribe Type 2 diabetes mellitus [...] Treatment Pending Test Test Name Order Date 51025-GTNUTVU NAIL, 6 OR MORE 08/25/2024 74193-RLSO SKIN LESIONS, OVER 4 08/25/20 26595-MWDX SKIN LESIONS, OVER 4 09/20/19 75949-EADR SKIN LESIONS, OVER 4 11/24/19 62542-LIZN SKIN LESIONS, 2 TO 4 02/02/20 Next Appt Details Provider Name:Rachele Cannon Russ cannon, 09/08/2025 02:45:00 PM, [address] [place], [address], Insurance Providers Payer Name Payer Address Payer Phone Subscriber Number Group Number Insured Name Patient Relationship to Insured Coverage Start Date Coverage End Date [employer] [place] [employer] Advantage [address] [place] [address] [id number] Simone Mir Self - patient is the insured Medical (General) History Medical History History ICD Code Arthritis Back,Hip,and Knee pain Broken bones CAD (Cholesterol) type I diabetes Gall bladder problems Heart disease High blood pressure Kidney disease Lung disease COPD Surgical History Surgery Date(Month/Year) appendectomy Gall bladder removal hernia surgery Orthopedic Surgery- hip, elbow, leg Hospitalization History Reason Date(Month/Year) [facility] [place]- breathing issues 08/16/24
--- OUTSIDE RECORDS SUMMARY | 2025-08-11 20:27 | XMS_ITS | Encounter Summary ---
Author Organization [facility], Address [address] [place] [address] Phone Care Team Providers Care Client Support Analyst Name Role Phone Rhea Martinez MD Primary Care Provider [phone] Encounter Details Date Type Department Care Team (Late st Contact Info) Description 10/27/2021 Documentation Only [facility], [address] [place] [address] Rico Lamb MD [address] [place] [address] [place] [address] Social History Tobacco Use Types [...] Visit [facility] [address] [place] [address] Rico Lamb MD [address] [place] [address] [place] [address] documented as of this encounter Visit Diagnoses Not on filedocumented in this encounter Care Teams Client Support Analyst Relationship Specialty Start Date End Date Rhea Martinez MD [facility] [place] [address] [place] [address] PCP - General 07/08/19 documented as of this encounter
--- OUTSIDE RECORDS SUMMARY | 2025-08-11 20:27 | XMS_ITS | Patient Health Record ---
Author Organization [facility] Address [address] [place] [address] Care Team Providers Care Dirt Shoveler Name Role Phone Rhea Martinez MD Primary Care Provider Dylan Ayala [phone] Reason For Referral No Information Medications Medication [...] Problem Screening for malignant neoplasm of colon (955502127) Encounter for screening for malignant neoplasm of colon (Z12.11) Active confirmed Problem Constipation (96874372) Constipation, unspecified constipation type (K59.00) Active confirmed Plan Of Treatment Future Test Test Name Order Date COLONOSCOPY 06/04/2020 Insurance Providers Payer Name Payer Address Payer Phone Subscriber Number Group Number Insured Name Patient Relationship to Insured Coverage Start Date Coverage End Date MEDICARE OF [place] [address] [place] [address] [id number] GAVIOTA MCKINNEY Self - patient is the insured MEDICAID OF [facility] [address] [place] [phone] [id number] GAVIOTA MCKINNEY Self - patient is the insured Medical (General) History Medical History History ICD Code Hyperlipidemia Hypertension IDDM--has an Insulin pump COPD Denies GA nor CVA Sees a candy depositing machine operator for proteinuria Constipation Neg. screening colonoscopy in 01/2010 Decreased vision right eye Surgical History Surgery Date(Month/Year) cholecystectomy appendectomy orthopedic surgeries umbilical hernia repair Retina laser surgery both eyes
--- OUTSIDE RECORDS SUMMARY | 2025-08-11 20:27 | XMS_ITS | Clinical Summary ---
Author Organization [facility], Address [address] [place] [address] [place] [address] Phone Care Team Providers Care Associate Professor Of Education Name Role Phone Rhea Martinez MD Primary Care Provider [phone] Allergies Active Allergy Reactions Criticality Noted Date [...] Visit [facility], [address] [place] [phone] Rico Labm MD [address] [place] [address] [place] [address] Health Maintenance Due Date Last [...] PM EDT) Hemoglobin A1C 7.4(H) (4.0-5.6) % [facility] Comment: MONITORING: In known diabetic patients, hemoglobin A1c targets should be discussed with health care provider. DIAGNOSTIC USE: The [place] Diabetes Association (ADA) and the World Health [...] Supplement 1 Testing performed or reported by [facility], a Service of [facility], [address] [place] [address] Curtis Marks MD, Firer Automatic Stoker [facility]# [id number] Blood specimen (specimen) Venous blood / Unknown 07/05/2023 12:15 PM EDT 07/05/2023 12:26 PM EDT us Rico Lamb MD LAB BLOOD ORDERABLES Final Res ult [facility] from Last 3 Months or Most Recently Relevant to Health Maintenance Insurance Medicare Medicaid [place] Care Teams Associate Professor Of Education Relationship Specialty Start Date End Date Rhea Martinez MD [facility] [address] [place] PCP - General 07/08/19
--- OUTSIDE RECORDS SUMMARY | 2025-08-11 20:27 | XMS_ITS | Encounter Summary ---
Author Organization [facility], Address [address] [place] [address] Phone Care Team Providers Care Director Trade Name Role Phone Rhea Martinez MD Primary Care Provider [phone] Encounter Details Date Type Department Care Team (Late st Contact Info) Description 08/11/2024 Documentation Only [facility] [address] [place] [address] Margareth Garcia [address] [place] [address] Social History Tobacco Use Types [...] Visit [facility] [address] [place] [address] Rico Lamb MD [address] [place] [address] documented as of this encounter Visit Diagnoses Not on filedocumented in this encounter Care Teams Director Trade Relationship Specialty Start Date End Date Rhea Martinez MD [facility] [place] [address] [place] PCP - General 07/08/19 documented as of this encounter
== END 2025-08-11 15:16 | disposition home or self-care (01) ==
LOC: HO.HUSH 14:31
PROVIDERS: Visit Provider Nurse Practitioner Family
DX: N40.1 Benign prostatic hyperplasia with lower urinary tract symptoms (principal); R39.12 Poor urinary stream; N40.0 Benign prostatic hyperplasia without lower urinary tract symptoms; N28.1 Cyst of kidney, acquired; N20.0 Calculus of kidney
CPT/HCPCS: 99213; G2211

== ENCOUNTER 2025-08-17 09:59 | Outpatient (AMB) | payer MEDICARE, MEDICAID, SELFPAY ==
[2025-08-17 10:12] VITALS: BP 151/67; PULSE 69; RESP 16; O2SAT 95; BMI 20.5
--- NOTE | 2025-08-17 10:12 | A.OFFVIS_ITS ---
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 Required: No Allergies adalimumab (From Humira) Adverse Reaction (Verified 08/17/25 10:16) sleepy pregabalin (From Lyrica) Adverse Reaction (Verified 08/17/25 10:16) Dizzyness Medication List - Last Reconciled 08/17/25 by Adelina Loera LPN albuterol sulfate 90 mcg/actuation (Ventolin HFA) 2 puffs PO Q4-6H PRN aspirin (Adult Aspirin Regimen) 81 mg PO DAILY PRN bethanechol chloride 50 mg PO BID 90 days carbamazepine ER 200 mg PO BEDTIME carvedilol 25 mg PO BID finasteride 5 mg PO DAILY 90 days fluticasone furoate-vilanterol 200-25 mcg/dose (Breo Ellipta) 1 inh inhalation DAILY gabapentin 200 mg (2 x 100 mg) PO DAILY PRN glucagon 3 mg/actuation (Baqsimi) mg intranasal hydrocodone-acetaminophen 5-325 mg 1 tab PO BID PRN 30 days insulin aspart U-100 70 units subcut DAILY ipratropium-albuterol 0.5 mg-3 mg(2.5 mg base)/3 mL 3 mL inhalation Q4H PRN 30 days lactulose 20 grams (30 mL) PO DAILY PRN lisinopril 40 mg PO DAILY mirabegron ER (Myrbetriq) 25 mg PO DAILY 90 days potassium citrate ER 10 mEq PO ONCE rosuvastatin 40 mg PO DAILY sennosides-docusate sodium 8.6-50 mg (Senna Plus) 2 tab-caps (2 x 8.6-50 mg) PO BEDTIME sildenafil (Viagra) 100 mg PO DAILY PRN simethicone (Gas Relief (simethicone)) 125 mg PO BEDTIME Spiriva with HandiHaler (tiotropium bromide) 1 cap inhalation DAILY NS tamsulosin 0.4 mg PO DAILY 90 days HPI Comments Details: History of Present Illness The patient is a 65 year old male presenting for a review of his lumbar spine MRI. He has been experiencing pain primarily in his right leg, although it occasionally affects both sides. Following his last visit on August 06, an MRI was performed. He has since been referred to a spine surgeon, with an appointment scheduled for later this week. The patient has a history of diabetes and uses an insulin pump with a sensor. Pain Description - Location: The pain is located primarily in the right leg. - Other: The patient reports that occasionally the pain can be felt in the middle and on both sides. Results - Lumbar Spine MRI: Findings show significant lumbar anterior listhesis at L4-5 with compression of the neural elements. Pain Management - Analgesia: An injection was considered but determined not to be beneficial given the clear MRI findings in favor of surgical correction. [facility] Medical History Urinary frequency COPD exacerbation Bloating Hypoglycemia Chronic constipation Tinea pedis, left Hx of fracture of femur Eczema Cholelithiasis Carpal tunnel syndrome Ankle fracture Diabetes mellitus type 1 Chronic kidney disease (CKD) stage G2/A3, mildly decreased glomerular filtration rate (GFR) between 60-89 mL/min/1.73 square meter and albuminuria creatinine ratio greater than 300 mg/g Hypercholesterolemia Diabetic neuropathy COPD (chronic obstructive pulmonary disease) Coronary artery disease Hypertension Surgical History Hx of colonoscopy Hx of eye surgery Hx of appendectomy H/O umbilical hernia repair History of cholecystectomy History of elbow surgery History of carpal tunnel release Family History Father Hypertension Stroke CVD (cerebrovascular disease) Mother Hypertension CVD (cerebrovascular disease) Diabetes Sister HX: breast cancer Paternal Grandfather Colon cancer Social History Housing: House Alcohol intake: former Patient Tobacco Use Status: Former Tobacco user Tobacco use type: Cigarette Years Smoked: 2002 quit 08/12 e-Cigarette/Vaping Use: Never Used Second Hand Smoke Exposure: No Substance Use Type: Marijuana service: No Current occupational status: disabled Cognitive needs: No Hearing needs: No Vision needs: Yes Physical Exam Exam Exam: Physical Exam - Appears afebrile. - Alert and oriented. - Mood and affect appropriate. - Follows and participates in conversation appropriately. - Respiratory effort is unlabored. Vital Signs: Last Vital Signs Pulse 69 08/17/25 10:12 Resp 16 08/17/25 10:12 BP 151/67 H 08/17/25 10:12 Pulse Ox 95 08/17/25 10:12 Oxygen Delivery Method Room Air 08/17/25 10:12 BMI result Body Mass Index 20.5 Assessment & Plan Assessment & Plan (1) Spondylolisthesis, lumbar region: Code(s): M43.16 - Spondylolisthesis, lumbar region Category: Medical Plan Plan Patient was informed and verbally consented to the use of an ambient scribe for clinic note documentation during this visit. 1. Lumbar Anterolisthesis - The MRI findings of significant lumbar anterior listhesis at L4-5 with neural element compression are clear, making a diagnostic selective nerve root block unnecessary. - The patient is a candidate for a lumbar spine fusion, and care will be deferred to neurosurgery for definitive treatment. - The patient has an upcoming appointment with a spine surgeon later this week. - A refund will be processed for a previously planned PRP injection as it is no longer indicated. - The patient will follow up as needed. Discussion Notes I reviewed the patient's lumbar spine MRI results, which show significant anteri or listhesis at L4-5 with neural element compression. I explained that because the problem is clear, a diagnostic injection is not necessary. I informed him that he is a candidate for a surgical repair, specifically an L4-5 fusion. We discussed his upcoming appointment with the spine surgeon this week. I ordered lumbar spine x-rays for him to get done, and we agreed it would be most convenient to have them done on the day of his surgical appointment due to his insulin pump. We discussed that the recovery from fusion surgery could take a couple of months. I will cancel his previously scheduled injection appointment for October 02 and my professor of practice will process a refund for the previously paid procedure. I am deferring his treatment to the neurosurgery team, and he will follow up with me on an as-needed basis. Patient Instructions - Please keep your appointment with the spine surgeon scheduled for this . - You will need to get X-rays of your lower back, which can be done on the same day as your surgeon's appointment. - Based on your MRI, the recommended treatment for your back condition is a spinal fusion surgery. - Be aware that recovery from this type of surgery can take a couple of months. - Your appointment for an injection on October 02 has been canceled. - Our office will issue you a refund for the procedure that was previously planned. - You can follow up in this office if you have any further needs. Coding Level of Care Code Est Pt Level 3 (49210) Diagnoses Spondylolisthesis, lumbar region M43.16
== END 2025-08-17 10:52 | disposition home or self-care (01) ==
LOC: HO.PMC 10:01
PROVIDERS: Visit Provider Internal Medicine
DX: M43.16 Spondylolisthesis, lumbar region (principal)
CPT/HCPCS: 99213

== ENCOUNTER → 2025-08-17 09:59 | Outpatient (BNVA) | payer MEDICARE, MEDICAID, SELFPAY | PROVIDERS: Visit Provider Internal Medicine | DX: Z71.2 Person consulting for explanation of examination or test findings (principal); M43.16 Spondylolisthesis, lumbar region | CPT/HCPCS: 99212 ==

== ENCOUNTER 2025-08-19 10:55 | Outpatient (REF) | payer MEDICARE, MEDICAID, SELFPAY ==
--- NOTE | ~2025-08-19 | XR_ITS ---
EXAMINATION: XR LUMBOSACRAL SPINE CLINICAL INFORMATION: M43.16 - Spondylolisthesis, lumbar region COMPARISON: Correlation MRI 08/19/2025 TECHNIQUE: 6 views of the lumbar spine, inclusive of flexion and extension views, were obtained. FINDINGS: Transitional anatomy. Labeling of the lumbar vertebral bodies is done similar to the MRI report. The last rib bearing vertebral bodies labeled as T12. Diffuse bone demineralization. Vertebral body heights are maintained. No evidence of acute fracture. Grade 1 anterolisthesis of L5 on S1. No gross subluxation is seen on the flexion or extension views. Severe L5-S1 disc degeneration. Multilevel spondylosis to a lesser degree in the visualized spine. Multilevel facet degeneration. SI joints are symmetric. Vascular calcifications. XR/XR lumbar spine 6V w bending IMPRESSION: Transitional anatomy. Close radiographic and clinical correlation is recommended prior to any intervention. No acute findings Grade 1 anterolisthesis of L5-S1. Lumbar spondylosis. Severe L5-S1 disc degeneration. Electronically signed by: Bridger Rosario MD 08/19/2025 03:41 PM [facility]
--- OUTSIDE RECORDS SUMMARY | 2025-08-19 14:20 | XMS_ITS | Clinical Summary ---
Author Organization [employer] Address [address] [place] [address] Care Team Providers Care Furniture Inspector Name Role Phone Unavailable Primary Care Provider [...] Payer (Ef fective 2022-Present) Name:Simone Quintana Member ID:[id number] Relation to Subscriber:Self Name:Simone Quintana Subscriber ID:[id number] Payer ID:STATE Group ID:Not on file Type:Medicare Address: [facility] [address] [address] [place] AD[place]
--- OUTSIDE RECORDS SUMMARY | 2025-08-19 14:20 | XMS_ITS | Patient Health Record ---
Author [facility] Address [address] [place] [address] Care Team Providers Care Button Grader Name Role Phone Rhea Martinez Primary Care Provider Rachele Vaca Unavailable [phone] Vivienne Greene Unavailable [phone] Allergies Allergen (clinical drug ingredient) Drug/Non Drug [...] Polyneuropathy due to type 2 diabetes mellitus (332563236) Type 2 diabetes mellitus with diabetic polyneuropathy (E11.42) Active confirmed Problem Acquired hammer toe of right foot (6267519783096431 ) Other hammer toe(s) (acquired), right foot (M20.41) Active confirmed Response to treatment, Improvemen t Problem Acquired hammer toe of left foot (9963340601922046 ) Other hammer toe(s) (acquired), left foot (M20.42) Active confirmed Response to treatment, Improvemen t Vital Signs Blood pressure diastolic 80 mm Hg 05/22/2025 Height 5ft 3in in 05/22/2025 Blood pressure systolic 120 mm Hg 05/22/2025 Weight 112 lbs 05/22/2025 BMI 19.84 kg/m2 05/22/2025 Procedures Procedure Date Ordered Date Performed Result Body Sit e 20590-IIJXJAK NAIL, 6 OR MORE 08/25/2024 N/A 99734-GHOY SKIN LESIONS, OVER 4 08/25/2024 N/A Encounters Encounter Location Date Provider Diagnosis [facility] [place] [address] [place] [address] 08/25/2024 Vivienne Greene Type 2 diabetes mellitus with diabetic polyneuropathy E11.42 ; Tinea unguium B35.1 ; Other hammer toe(s) (acquired), right foot M20.41 and Other hammer toe(s) (acquired), left foot M20.[address] [address] 11/14/2024 Rachele Uribe Type 2 diabetes mellitus with diabetic polyneuropathy E11.42 and Tinea unguium B35.[address] [address] 02/13/2025 Rachele Uribe Type 2 diabetes mellitus with diabetic polyneuropathy E11.42 and Tinea unguium B35.[address] [address] 05/22/2025 Rachele Uribe Type 2 diabetes mellitus [...] Treatment Pending Test Test Name Order Date 86624-[id number] NAIL, 6 OR MORE 08/25/2024 87019-UGDL SKIN LESIONS, OVER 4 08/25/20 34233-YQPU SKIN LESIONS, OVER 4 09/20/19 58086-OFPN SKIN LESIONS, OVER 4 11/24/19 29622-SHSF SKIN LESIONS, 2 TO 4 02/02/20 Next Appt Details Provider Name:Rachele Cannon Russ cannon, 09/08/2025 02:45:00 PM, [address] [place], [address], Insurance Providers Payer Name Payer Address Payer Phone Subscriber Number Group Number Insured Name Patient Relationship to Insured Coverage Start Date Coverage End Date [employer] [place] [employer] [address] [place] [address] [phone] [id number] Simone Mir Self - patient is the [...]
--- OUTSIDE RECORDS SUMMARY | 2025-08-19 14:22 | XMS_ITS | Patient Health Record ---
Author Organization [facility] Address [address] [place] [phone] Care Team Providers Care Sheet Metal Layout Mechanic Name Role Phone Rhea Martinez MD Primary Care Provider Dylan Ayala [phone] Reason For Referral No Information Medications Medication [...] Problem Screening for malignant neoplasm of colon (752703508) Encounter for screening for malignant neoplasm of colon (Z12.11) Active confirmed Problem Constipation (26999306) Constipation, unspecified constipation type (K59.00) Active confirmed Plan Of Treatment Future Test Test Name Order Date COLONOSCOPY 06/04/2020 Insurance Providers Payer Name Payer Address Payer Phone Subscriber Number Group Number Insured Name Patient Relationship to Insured Coverage Start Date Coverage End Date MEDICARE OF [place] [address] [place] [address] [id number] GAVIOTA MCKINNEY Self - patient is the insured MEDICAID OF [facility] [address] [place] [phone] [id number] GAVIOTA MCKINNEY Self - patient is the insured Medical (General) History Medical History History ICD Code Hyperlipidemia Hypertension IDDM--has an Insulin pump COPD Denies VA nor CVA Sees a tumbling barrel painter for proteinuria Constipation Neg. screening colonoscopy in 01/2010 Decreased vision right eye Surgical History Surgery Date(Month/Year) cholecystectomy appendectomy orthopedic surgeries umbilical hernia repair Retina laser surgery both eyes
--- OUTSIDE RECORDS SUMMARY | 2025-08-19 14:24 | XMS_ITS | Clinical Summary ---
Author Organization [facility] Address [address] [place] [address] Phone Care Team Providers Care Viscose Cellar Charge Hand Name Role Phone Rhea Martinez MD Unavailable [phone] Kristy Mcbride MD Unavailable [phone] Rhea Martinez MD Primary Care Provider Allergies [...] length cannula, he is advised to contact [facility] to discuss his order since we [...] period, encouraged to continue his excellent efforts Simoen is encouraged to continue to do his [...] times and a slight reduction in the trim attacher hours to reduce risk of hypoglycemia at [...] Team Description 07/20/2025 1:00 PM EST Nutrition [facility] [place] [address] [place] [address] Kristy Mcbride MD Dawicki, Jessica Courtney, LDN 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); Insulin pump in place 07/13/2025 Telephone [facility] [address] [place] [address] Marisa Monsalve MA CLINICAL NOTES from Last [...] Description 10/12/2025 2:40 PM EST Office Visit [facility] [address] [place] [address] Kristy Mcbride MD [address] [place] [address] 01/18/2026 1:00 PM EDT Nutrition [facility] [address] [place] [address] Laura Parham LDN [address] [place] [id number] Health Maintenance Due Date Last Done Comments [...] 7.3(A) 4.2 - 5.6 % [facility] [employer] [facility] Other 04/13/2025 2:26 PM EDT us Kristy Mcbride MD LAB POCT ENTER/EDIT ORDERABLES Final Result Performing Organization Address City/[facility]/ZIP Co de Phone Number [address] [address], [facility] * (ABNORMAL) Basic metabolic panel (12/25/2022 2:05 PM EDT) SODIUM 138 133 - 146 mmol/L [facility] CHLORIDE 102 96 - 108 mmol/L [facility] POTASSIUM 5.2(H) 3.3 - 5.1 mmol/L [facility] CO2 28 21 - 35 mmol/L [facility] BUN 29(H) 6 - 19 mg/dL [facility] CREATININE 1.50 0.5 - 1.5 mg/dL [facility] GLUCOSE 231(H) 70 - 99 mg/dL [facility] CALCIUM 9.2 8.4 - 10.3 mg/dL [facility] EGFR 52(L) >59 mL/min/1.7 3m2 [facility] Comment:Estimated glomerular filtration rate calculated using the CKD-EPI refit equation. ANION GAP 13 10 - 20 mmol/L [facility] Blood 12/25/2022 2:05 PM EDT 12/25/2022 2:08 PM EDT us Rhea Martinez MD LAB BLOOD BKR ORDERABLES Madelyn l Result Performing Organization Address City/[facility]/ZIP Co de Phone Number [address] [address] from Last 3 Months or Most Recently Relevant to Health Maintenance Insurance [facility]IC[facility] A & [facility] MEDIC[facility] PART A & B [id number] [place] [address] [employer] MEDICARE PART A & [facility] MEDICARE PART A & B [facility] Care Teams Viscose Cellar Charge Hand Relationship Specialty Start Date End Date Rhea Martinez MD [address] [place] [phone] PCP - General Internal Medicine 07/04/17 Rhea Martinez MD [address] [place] [phone] Historical LMR Provider 06/18/17 Kristy Mcbride MD [address] [place] [address], 1[address] [place] [address] Historical LMR Provider 06/18/17 Additional Source Comments The information contained in this document represents components of the legal health record. It is not the complete legal health record.[facility]
== END 2025-08-19 10:56 | disposition home or self-care (01) ==
LOC: HO.XRAY 10:55
PROVIDERS: PCP Internal Medicine; Visit Provider Internal Medicine
DX: M43.16 Spondylolisthesis, lumbar region (principal)
CPT/HCPCS: 72114

== ENCOUNTER → 2025-08-19 11:23 | Outpatient (BNV) | payer MEDICARE, MEDICAID, SELFPAY | PROVIDERS: PCP Internal Medicine; Visit Provider Radiology Diagnostic Ultrasound | DX: M43.16 Spondylolisthesis, lumbar region (principal); M47.816 Spondylosis without myelopathy or radiculopathy, lumbar region; M51.379 Other intervertebral disc degeneration, lumbosacral region without mention of lumbar back pain or lower extremity pain | CPT/HCPCS: 72114 ==

== ENCOUNTER 2025-08-20 14:00 | Outpatient (AMB) | payer MEDICARE, MEDICAID, SELFPAY ==
[2025-08-20 14:10] VITALS: BMI 20.5
--- NOTE | 2025-08-20 14:10 | HO.SPINEOV ---
Vital Signs 08/20/25 14:10 Height 5 ft 2 in Weight 112 lb BMI 20.5 Intake Visit Reasons: LBP Intake Note: Mr. Jordan is here today c/o low back pain that radiates to the right leg. MRI done at [facility]. Tacking Machine Operator Required: No Allergies adalimumab (From Humira) Adverse Reaction (Verified 08/20/25 14:11) sleepy pregabalin (From Lyrica) Adverse Reaction (Verified 08/20/25 14:11) Dizzyness Physical Exam Vital Signs: BMI result Body Mass Index 20.5 Assessment & Plan Assessment & Plan (1) Numbness in both hands: Code(s): R20.0 - Anesthesia of skin Category: Medical (2) Lumbar radiculopathy: Code(s): M54.16 - Radiculopathy, lumbar region Category: Medical Plan Dear DR Martinez, Thank you for referring MR Jordan to our office today. He is a very nice 65-year-old gentleman with a history of COPD with FEV1 44%, type 1 diabetes with relatively good control of his A1c, presents for evaluation of 1-2 years of low back pain and right lower extremity pain that radiates down his lateral thigh into his anterior tibial region. The pain is aggravated with standing and walking. 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 He also takes hydrocodone at night. He is limited with his kidneys on taking anti-inflammatories. Tylenol has not been helpful. The patient underwent an MRI showing severe degeneration of the L5-S1 disc space with right L5 foraminal stenosis. He was referred to us for evaluation of potential surgical opinions. PMH: He is a type 1 diabetic and has been so for about 50 years, he has A1c that hovers around 7, history of peripheral neuropathy, BPH. history of COPD, he quit smoking 20 years ago but his FEV1 was 44% on pulmonary testing last year. He is relatively stable with no significant active symptoms, takes a nebulizer in an inhaler daily. He has a history of hypertension. History of cholecystectomy, appendectomy many many years ago in the 1960s, ORIF of his elbow and forearm. He has also had bilateral carpal tunnel release. Continues to have symptoms in his hands with numbness as well as numbness down his left arm. Denies any history of heart attacks, strokes, major liver disease, he does have chronic kidney disease with GFR of 60-89. Patient denies any history of bleeding disorders, blood clots, major intra-abdominal surgery, cancer, or unusual infections, osteomyelitis. Social hx: Quit smoking 20 years ago, smokes marijuana daily, does not drink alcohol Medications: Insulin, lisinopril, gabapentin, carbamazepine, carvedilol, rosuvastatin, Myrbetriq, bethanechol, Flomax Allergies: None Physical exam: Awake alert oriented no acute distress, able stand up on his own with the help of a walker, he can slowly ambulate in the hallway, slightly spastic gait, unsteady having to use the wall to assist while walking down the hallway. Motor examination reveals mild weakness of his hands bilaterally with some loss of sensation. Rest of his motor examination is full strength. Slightly brisk reflexes in the upper extremities, more so on the left, possibly subtle Alex's sign on the left hand as well. Difficult to reproduce. Lower extremity reveals brisk reflexes in the patella, absent reflexes in the Achilles. He has a few small well-healed scars on the right side of his abdomen. Imaging review: Lumbar MRI done at [facility] last month, compared to a CT scan done in 2020, shows transitional anatomy with what the radiologist disturbing L5-S1 shows grade 1-2 spondylolisthesis with severe right L5 foraminal stenosis. There is STIR signal sequence change here suggesting irritation of the bones. The radiologist reports that there spondylolysis, but on the CT scan done in 2020 there is no evidence of that. In fact in 2020 he had normal alignment of the lumbar spine so this spondylolisthesis is a new finding developed over the last few years. Impression: 65-year-old male, diabetic, reasonably well controlled A1c, COPD with an FEV1 of 44%, presents with back pain, right leg pain going down into his thigh and anterior tibial region. He has failed conservative treatment. The pain is severe and unrelenting. Aggravated with standing and walking. He has transitional anatomy, and has grade 1-2 spondylolisthesis at L5-S1 with severe right L5 foraminal stenosis. Dr. Smith and I reviewed his imaging together. We would surgically approaches with an anterior lumbar interbody fusion with posterior pedicle screws to realign the spinal vertebrae. There is some suggestion here that there could be auto fusion in the anterior part of the endplate so we will get a noncontrast CT to evaluate that a little further. We would need a pulmonology clearance letter as well as he does have fairly severe COPD. Our anesthesia team would want to make sure they can get him safely on and off a ventilator. At this time he is symptomatically stable in his not using oxygen. He is followed here at [facility]. Secondary issue I would like to evaluate before we do surgery is potential cervical myelopathy. He complains of left arm numbness and bilateral hand numbness with weakness in both of his hands. He had carpal tunnel release but that did not improve his symptoms. 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 I will see him back once the tests are completed. We did briefly review the anterior lumbar interbody fusion approach, risks, benefits as well as recovery. I showed him his MRIs and use education models for teaching. Thank you for allowing us to care for your patient. The total time spent with this visit with this patient was 65 minutes reviewing history, physical exam, lumbar imaging review, and implementation of treatment plan or further diagnostic testing Carlos A Smith MD,PhD [facility] Orders: Orders MR cervical spine wo con Today R20.0 - Anesthesia of skin CT lumbar spine wo IV con Today M54.16 - Radiculopathy, lumbar region Coding Level of Care Code New Pt Level 5 (89873) Diagnoses Numbness in both hands R20.0 Lumbar radiculopathy M54.16
--- OUTSIDE RECORDS SUMMARY | 2025-08-20 18:15 | XMS_ITS | Encounter Summary ---
Author Organization [facility], Address [address] [place] [address] Phone Care Team Providers Care Food Tray Assembler Name Role Phone Rhea Martinez MD Primary Care Provider [phone] Encounter Details Date Type Department Care Team (Late st Contact Info) Description 10/27/2021 Documentation Only [facility], [address] [place] [address] Rico Lamb MD [address] [place] [address] [place] [address] Social History Tobacco Use Types [...] Services Of [facility] [address] [place] [address] Rico Lamb MD [address] [place] [address] [place] [address] documented as of this encounter Visit Diagnoses Not on filedocumented in this encounter Care Teams Food Tray Assembler Relationship Specialty Start Date End Date Rhea Martinez MD [facility] [place] [address] [place] PCP - General 07/08/19 documented as of this encounter
--- OUTSIDE RECORDS SUMMARY | 2025-08-20 18:15 | XMS_ITS | Clinical Summary ---
Author Organization [facility], Address [address] [place] [address] [place] [address] Phone Care Team Providers Care Printer Small Print Shop Name Role Phone Rhea Martinez MD Primary Care Provider [phone] Allergies Active Allergy Reactions Criticality Noted Date [...] Encounters Date Type Department Care Team Description 08/17/2025 Documentation Only [facility] [place], [address] [address] Margareth Garcia from Last 3 Months Immunizations Immunization Administration [...] Visit [facility] [address] [place] [address] Rico Lamb MD [address] [place] [address] [place] [phone] Health Maintenance Due Date Last Done Comments Colorectal Cancer Screening: Annual FOBT 2008 Colorectal Cancer Screening: Colonoscopy 2008 Colorectal Cancer Screening: Sigmoidoscopy 2008 Pneumococcal Vaccine: 50+ Years (3 of 3 - PCV) 05/08/2015 05/08/2014, 10/25/2005 Diabetes: Ophthalmology Exam 11/24/2019 Diabetes: Pedal Pulse Checked 11/24/2019 Diabetes: Sensory Foot Exam 11/24/2019 Diabetes: Visual Foot Exam 11/24/2019 Influenza Vaccine (#1) 2025 2, 06/20/2021, 06/14/2020, Additional history exists Diabetes: Hemoglobin A1C 07/14/2025 025, 07/05/2023, 07/04/2022, Additional history exists Pneumococcal Vaccine: Peds (0 to 5 Years) and At-Risk Patients (6 to 49 Years) Discontinued 05/08/2014, 10/25/2005 Hepatitis B Vaccine Aged Out No longe [...] Hemoglobin A1C 7.4(H) (4.0-5.6) % [facility] Comment: MONITORING: In known diabetic patients, hemoglobin A1c targets should be discussed with health care provider. DIAGNOSTIC USE: The [place] Diabetes Association (ADA) and the World Health [...] Supplement 1 Testing performed or reported by [facility], a Service of [facility], [address] [place] [address] Curtis Marks MD, Liquor Store Manager [facility]# [id number] Blood specimen (specimen) Venous blood / Unknown 07/05/2023 12:15 PM EDT 07/05/2023 12:26 PM EDT us Rico Lamb MD LAB BLOOD ORDERABLES Final Res ult DORA from Last 3 Months or Most Recently Relevant to Health Maintenance Insurance Medicare Medicaid [place] Care Teams Printer Small Print Shop Relationship Specialty Start Date End Date Rhea Martinez MD [facility] [address] [place], [place] PCP - General 07/08/19
--- OUTSIDE RECORDS SUMMARY | 2025-08-20 18:15 | XMS_ITS | Encounter Summary ---
Author Organization [facility], Address [address] [place] [address] Phone Care Team Providers Care General Operator Name Role Phone Rhea Martinez MD Primary Care Provider [phone] Encounter Details Date Type Department Care Team (Late st Contact Info) Description 08/11/2024 Documentation Only [facility] [address] [place] [address] Margareth Garcia [address] [place] [address] Social History Tobacco Use Types [...] [facility] [address] [place] [address] Rico Lamb MD [address] [place] [address] [place] [place] [address] documented as of this encounter Visit Diagnoses Not on filedocumented in this encounter Care Teams General Operator Relationship Specialty Start Date End Date Rhea Martinez MD [facility] [place] [address] [place] PCP - General 07/08/19 documented as of this encounter
--- OUTSIDE RECORDS SUMMARY | 2025-08-20 18:15 | XMS_ITS | Patient Health Record ---
Author [facility] Address [address] [place] [address] Care Team Providers Care Hotel Superintendent Name Role Phone Rhea Martinez Primary Care Provider Rachele Vaca Unavailable [phone] Vivienne Greene Unavailable [phone] Allergies Allergen (clinical drug ingredient) Drug/Non Drug [...] Polyneuropathy due to type 2 diabetes mellitus (933061167) Type 2 diabetes mellitus with diabetic polyneuropathy (E11.42) Active confirmed Problem Acquired hammer toe of right foot (3353635422118562 ) Other hammer toe(s) (acquired), right foot (M20.41) Active confirmed Response to treatment, Improvemen t Problem Acquired hammer toe of left foot (5565830576734422 ) Other hammer toe(s) (acquired), left foot (M20.42) Active confirmed Response to treatment, Improvemen t Vital Signs Blood pressure diastolic 80 mm Hg 05/22/2025 Height 5ft 3in in 05/22/2025 Blood pressure systolic 120 mm Hg 05/22/2025 Weight 112 lbs 05/22/2025 BMI 19.84 kg/m2 05/22/2025 Procedures Procedure Date Ordered Date Performed Result Body Sit e 04304-WWCPTGD NAIL, 6 OR MORE 08/25/2024 N/A 15955-FCRZ SKIN LESIONS, OVER 4 08/25/2024 N/A Encounters Encounter Location Date Provider Diagnosis [facility] [place] [address] [place] [address] 08/25/2024 Vivienne Greene Type 2 diabetes mellitus with diabetic polyneuropathy E11.42 ; Tinea unguium B35.1 ; Other hammer toe(s) (acquired), right foot M20.41 and Other hammer toe(s) (acquired), left foot M20.[address] [address] 11/14/2024 Rachele Uribe Type 2 diabetes mellitus with diabetic polyneuropathy E11.42 and Tinea unguium B35.[address] [address] 02/13/2025 Rachele Uribe Type 2 diabetes mellitus with diabetic polyneuropathy E11.42 and Tinea unguium B35.[address] [address] 05/22/2025 Rachele Uribe Type 2 diabetes mellitus [...] Treatment Pending Test Test Name Order Date 58826-[id number] NAIL, 6 OR MORE 08/25/2024 68246-ZUPL SKIN LESIONS, OVER 4 08/25/20 50849-GTXC SKIN LESIONS, OVER 4 09/20/19 93942-ZIMK SKIN LESIONS, OVER 4 11/24/19 46754-FPTA SKIN LESIONS, 2 TO 4 02/02/20 Next Appt Details Provider Name:Rachele Cannon Russ cannon, 09/08/2025 02:45:00 PM, [address] [place], [address], Insurance Providers Payer Name Payer Address Payer Phone Subscriber Number Group Number Insured Name Patient Relationship to Insured Coverage Start Date Coverage End Date [employer] [place] Medicare Advantage [address] [place] [address] [id number] Simone Mir Self - patient is the insured Medical (General) History Medical History History ICD Code Arthritis Back,Hip,and Knee pain Broken bones CAD (Cholesterol) type I diabetes Gall bladder problems Heart disease High blood pressure Kidney disease Lung disease COPD Surgical History Surgery Date(Month/Year) appendectomy Gall bladder removal hernia surgery Orthopedic Surgery- hip, elbow, leg Hospitalization History Reason Date(Month/Year) [facility]- breathing issues 08/16/24
--- OUTSIDE RECORDS SUMMARY | 2025-08-20 18:15 | XMS_ITS | Encounter Summary ---
Author Organization [facility], Address [address] [place] [address] Phone Care Team Providers Care Research Program Intern Name Role Phone Rhea Martinez MD Primary Care Provider [phone] Encounter Details Date Type Department Care Team (Late st Contact Info) Description 08/17/2025 Documentation Only [facility] [address] [place] [place] [address] [place] [address] Margareth Garcia [address] [place] [address] Social History Tobacco Use Types Packs/Day [...] Visit [facility] [address] [place] [address] Rico Lamb MD [address] [place] [address] documented as of this encounter Visit Diagnoses Not on filedocumented in this encounter Care Teams Research Program Intern Relationship Specialty Start Date End Date Rhea Martinez MD [facility] [place] [address] [place] PCP - General 07/08/19 documented as of this encounter
--- OUTSIDE RECORDS SUMMARY | 2025-08-20 18:15 | XMS_ITS | Encounter Summary ---
Author Organization [facility] [place], Address [address] [place] [address] Phone Care Team Providers Care Supervisor Phosphoric Acid Name Role Phone Rhea Martinez MD Primary Care Provider [phone] Encounter Details Date Type Department Care Team (Late st Contact Info) Description 07/06/2022 Documentation Only [facility] [place], [address] [place] [address] Rico Lamb MD [address] [place] [address] [place] [address] Social History Tobacco Use Types [...] [address] [place] [address] Rico Lamb MD [address] [place] [address] [place] [address] documented as of this encounter Visit Diagnoses Not on filedocumented in this encounter Care Teams Supervisor Phosphoric Acid Relationship Specialty Start Date End Date Rhea Martinez MD [facility] [place] [address] [place] PCP - General 07/08/19 documented as of this encounter
--- OUTSIDE RECORDS SUMMARY | 2025-08-20 18:16 | XMS_ITS | Clinical Summary ---
Author Organization [facility] Address [address] [place] [address] Phone Care Team Providers Care Research Tech Name Role Phone Rhea Martinez MD Unavailable Kristy Mcbride MD Unavailable [phone] Rhea Martinez MD Primary Care Provider [phone] Allergies Active Allergy Reactions Criticality Noted Date [...] length cannula, he is advised to contact [facility] to discuss his order since [...] and in 6 months to meet with vt Assessment & Plan (10/13/2024 4:15 PM EST): [...] and in 6 months to meet with vt Assessment & Plan (09/06/2020 10:52 PM EST): [...] times and a slight reduction in the card filer hours to reduce risk of hypoglycemia at [...] Team Description 07/20/2025 1:[address] 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); Insulin pump in place 07/13/2025 Telephone [facility] [address] [place] [...] Description 10/12/2025 2:40 PM EST Office Visit [facility] Diabetes [address] [place] [address] Kristy Mcbride MD [address] [place] [address] 01/18/2026 1:00 PM EDT Nutrition [facility] Diabetes [address] [place] [address] Laura Parham LDN [address] [place] [address] Health Maintenance Due Date Last Done Comments [...] Hemoglobin A1c 7.3(A) 4.2 - 5.6 % [facility] [employer] [facility] Other 04/13/2025 2:26 PM EDT us Kristy Mcbride MD LAB POCT ENTER/EDIT ORDERABLES Final Result Performing Organization Address City/[facility]/ZIP Co de Phone Number [address] [address], [facility] * (ABNORMAL) Basic metabolic panel (12/25/2022 2:05 PM EDT) SODIUM 138 133 - 146 mmol/L [facility] CHLORIDE 102 96 - 108 mmol/L [facility] POTASSIUM 5.2(H) 3.3 - 5.1 mmol/L [facility] CO2 28 21 - 35 mmol/L [facility] BUN 29(H) 6 - 19 mg/dL [facility] CREATININE 1.50 0.5 - 1.5 mg/dL [facility] GLUCOSE 231(H) 70 - 99 mg/dL [facility] CALCIUM 9.2 8.4 - 10.3 mg/dL [facility] EGFR 52(L) >59 mL/min/1.7 3m2 [facility] Comment:Estimated glomerular filtration rate calculated using the CKD-EPI refit equation. ANION GAP 13 10 - 20 mmol/L [facility] Blood 12/25/2022 2:05 PM EDT 12/25/2022 2:08 PM EDT us Rhea Martinez MD LAB BLOOD BKR ORDERABLES Madelyn l Result Performing Organization Address City/[facility]/ZIP Co de Phone Number [address] [address] from Last 3 Months or Most Recently Relevant to Health Maintenance Insurance [facility] MEDIC[facility] PART A & B [id number] [place] [address] [employer] MEDICARE PART A & [facility] A & B Member Subscriber Plan / Payer (Ef fective 2005-Present) Name:Simone Jordan Member ID:[id number] Relation to Subscriber:Self Name:Simone Jordan Subscriber ID:[id number] Payer ID:[id number] Group ID:Not on file Type:Medicare Address: Patient Education Systems [facility] [address] [place] [address] [facility] Care Teams Research Tech Relationship Specialty Start Date End Date Rhea Martinez MD [address] [place] [phone] PCP - General Internal Medicine 07/04/17 Rhea Martinez MD [address] [place] [phone] Historical LMR Provider 06/18/17 Kristy Mcbride MD [address] [place] [address], [address] [place] [address] Historical LMR Provider 06/18/17 Additional Source Comments The information contained in this document represents components of the legal health record. It is not the complete legal health record.[facility]
--- OUTSIDE RECORDS SUMMARY | 2025-08-20 18:16 | XMS_ITS | Clinical Summary ---
Author Organization [employer] Address [address] [facility] [address] [place] [address] Care Team Providers Care Oven Unloader Name Role Phone Unavailable Primary Care Provider [...] this topic Meningococcal Vaccine Aged Out No hair hung eligible based on patient's age to [...] Payer (Ef fective 2022-Present) Name:Simone Quintana Member ID:[id number] Relation to Subscriber:Self Name:Simone Quintana Subscriber ID:[id number] Payer ID:[id number] Group ID:Not on file Type:Medicare Address: [facility] [address] [address] [place] AD[place]
--- OUTSIDE RECORDS SUMMARY | 2025-08-20 18:16 | XMS_ITS | Patient Health Record ---
Author Organization [facility] Address [address] [place] [address] Care Team Providers Care Signals Collection Technician Name Role Phone Rhea Martinez MD Primary Care Provider Dylan Ayala [phone] Reason For Referral No Information Medications Medication [...] Problem Screening for malignant neoplasm of colon (447361400) Encounter for screening for malignant neoplasm of colon (Z12.11) Active confirmed Problem Constipation (72601069) Constipation, unspecified constipation type (K59.00) Active confirmed Plan Of Treatment Future Test Test Name Order Date COLONOSCOPY 06/04/2020 Insurance Providers Payer Name Payer Address Payer Phone Subscriber Number Group Number Insured Name Patient Relationship to Insured Coverage Start Date Coverage End Date MEDICARE OF [place] [address] [place] [address] [id number] GAVIOTA MCKINNEY Self - patient is the insured MEDICAID OF [facility] [address] [place] [phone] [id number] GAVIOTA MCKINNEY Self - patient is the insured Medical (General) History Medical History History ICD Code Hyperlipidemia Hypertension IDDM--has an Insulin pump COPD Denies ME nor CVA Sees a technical engineer for proteinuria Constipation Neg. screening colonoscopy in 01/2010 Decreased vision right eye Surgical History Surgery Date(Month/Year) cholecystectomy appendectomy orthopedic surgeries umbilical hernia repair Retina laser surgery both eyes
== END 2025-08-20 15:56 | disposition home or self-care (01) ==
LOC: HO.HNS 14:01
PROVIDERS: PCP Internal Medicine; Referring Provider Internal Medicine; Visit Provider Physician Assistant
DX: R20.0 Anesthesia of skin (principal); M54.16 Radiculopathy, lumbar region
CPT/HCPCS: 99205

== ENCOUNTER → 2025-08-20 14:00 | Outpatient (BNVA) | payer MEDICARE, MEDICAID, SELFPAY | PROVIDERS: PCP Internal Medicine; Referring Provider Internal Medicine; Visit Provider Physician Assistant | DX: M54.16 Radiculopathy, lumbar region (principal); R20.0 Anesthesia of skin | CPT/HCPCS: 99202 ==